=== PATIENT | female | born 1960 | race African-American/Black ===

== ENCOUNTER 2016-12-07 14:10 | Emergency (ER) | payer MEDICARE, MEDICAID ==
[~2016-12-07] VITALS: Ht 165.1 cm; Wt 131.5 kg
[~2016-12-07 14:10] MED LIST: AMBIEN10 M1 ORAL; CYCLOBENZAPRINE10 MG ORAL; IBUPROFEN600 MG ORAL; NORCO 10/3251 EA ORAL; QUETIAPINE FUMA25 MG ORAL; WELLBUTRIN SR100 MG ORAL
[2016-12-07] MEDS ORDERED: GABAPENTIN100 MG ORAL (14:29)
[2016-12-07] MEDS ORDERED: IBUPROFEN600 MG ORAL (14:29)
[2016-12-07] MEDS ORDERED: LASIX20 M1 ORAL (14:29)
[2016-12-07] MEDS ORDERED: Ketorolac 30mg Inj IM ONE (14:30)
[2016-12-07 14:50] VITALS: BP 157/94
[2016-12-07 14:51] VITALS: BP 170/127
--- NOTE | 2016-12-07 17:27 | Emergency Room Report ---
History of Present Illness General Chief Complaint: Pain Source: Patient, EMS Present Illness HPI 56-year-old female presents ED complaining of leg pain and swelling. Patient came by EMS. Patient notes having the pain for many weeks now. Patient states she was admitted in the past and prescribed Lasix and gabapentin. Patient states the pain as throbbing, 8/10, nonradiating. Denies chest pain or shortness of breath. Denies recent trauma. No other aggravating relieving factors. Denies any other associated symptoms. Allergies: Coded Allergies: No Known Allergies (Unverified , 11/07/13) Patient History Past Medical History: psych hx Past Surgical History: none Pertinent Family History: none Social History: Denies: alcohol use, drug use, smoking Now: No Immunizations: UTD Reviewed Nursing Documentation: PMH: Agreed, PSxH: Agreed Nursing Documentation-PMH Past Medical History: No History, Except For History Of Psychiatric Problem: Yes - SCHITOPRENIA Review of Systems All Other Systems: negative except mentioned in HPI Physical Exam Vital Signs Date Time Temp Pulse Resp B/P Pulse Ox O2 Delivery O2 Flow Rate FiO2 12/07/16 14:03 98.1 100 16 170/127 99 Room Air Sp02 EP Interpretation: reviewed, normal General Appearance: no apparent distress, alert, GCS 15, non-toxic, obese Head: normocephalic, atraumatic Eyes: bilateral eye PERRL, bilateral eye normal inspection ENT: hearing grossly normal, normal pharynx, no angioedema, normal voice Neck: full range of motion, supple/symm/no masses Respiratory: chest non-tender, lungs clear, normal breath sounds, speaking full sentences Cardiovascular #1: regular rate, rhythm, no edema Cardiovascular #2: 2+ carotid (R), 2+ carotid (L), 2+ radial (R), 2+ radial (L) , 2+ dorsalis pedis (R), 2+ dorsalis pedis (L) Gastrointestinal: normal bowel sounds, non tender, soft, non-distended, no guarding, no rebound Rectal: deferred Genitourinary: normal inspection, no CVA tenderness Musculoskeletal: back normal, gait/station normal, normal range of motion, non- tender, swelling - 1+ bilateral LE Neurologic: alert, oriented x3, responsive, motor strength/tone normal, sensory intact, speech normal Psychiatric: judgement/insight normal, memory normal, mood/affect normal, no suicidal/homicidal ideation Reflexes: 3+ bicep (R), 3+ bicep (L), 3+ tricep (R), 3+ tricep (L), 3+ knee (R) , 3+ knee (L) Skin: normal color, no rash, warm/dry, well hydrated Lymphatic: no adenopathy Medical Decision Making Diagnostic Impression: Primary Impression: Leg pain Qualified Codes: M79.604 - Pain in right leg; M79.605 - Pain in left leg Additional Impression: Peripheral edema ER Course 56-year-old female presents ED complaining of leg pain and swelling. No trauma Differential - cellulitis, contusion, peripheral edema Patient placed chair. After initial history physical exam reveals an obese female in no acute distress. There is 1+ pitting edema in bilateral lower extremities. No signs of trauma. Patient states she used to take Lasix and gabapentin. Will prescribe refills of both medications Given Toradol in ED with pain improved Diagnosis-leg pain, peripheral edema Stable and discharged to home with prescription for gabapentin, Lasix. Followup with PMD. Return to ED if symptoms occur or worsen Last Vital Signs Date Time Temp Pulse Resp B/P Pulse Ox O2 Delivery O2 Flow Rate FiO2 12/07/16 14:51 98.1 16 170/127 99 Room Air 12/07/16 14:50 98 Status: improved Disposition: HOME, SELF-CARE Condition: Stable Scripts Ibuprofen* (MOTRIN*) 600 Mg Tablet 600 MG ORAL Q8H Y for For Pain, #30 TAB 0 Refills Prov: SALOMON SHELLEY M.D. 12/07/16 Furosemide* (LASIX*) 20 Mg Tablet 20 MG ORAL DAILY for 30 Days, TAB Prov: SALOMON SHELLEY M.D. 12/07/16 Gabapentin* (GABAPENTIN*) 100 Mg Capsule 200 MG ORAL THREE TIMES A DAY for 30 Days, CAP Prov: SALOMON SHELLEY M.D. 12/07/16 Referrals: NOT CHOSEN [facility]/,REFERRING (PCP) Patient Instructions: Edema SALOMON SHELLEY M.D. Dec 07, 2016 17:27
== END 2016-12-07 14:53 | disposition home or self-care (01) ==
LOC: EDBD 14:10 → EMR 14:40
DX: M79.604 Pain in right leg (principal); R60.0 Localized edema
CPT/HCPCS: 96372; 99284; J1885

== ENCOUNTER 2017-04-19 10:23 | Emergency (ER) | payer MEDICARE, MEDICAID ==
[~2017-04-19] VITALS: Ht 165.1 cm; Wt 102.5 kg
[~2017-04-19 10:23] MED LIST changes: +GABAPENTIN100 MG ORAL; +LASIX20 M1 ORAL
[2017-04-19] MEDS ORDERED: ZyPREXA Zydis 10mg tab ORAL ONE (10:45)
[2017-04-19 11:15] VITALS: BP 114/84
[2017-04-19 11:17] LABS: MEAN CORPUSCULAR HEMOGLOBIN 30.1 PG (27.0-31.0); MEAN CORPUSCULAR HGB CONC 31.2 G/DL (32.0-36.0); MEAN CORPUSCULAR VOLUME 96 FL (80-99); MEAN PLATELET VOLUME 5.9 FL (6.5-10.1); PLATELET COUNT 346 K/UL (150-450); RED BLOOD COUNT 4.26 M/UL (4.20-5.40); RED CELL DISTRIBUTION WIDTH 14.5 % (11.6-14.8); WHITE BLOOD COUNT 7.5 K/UL (4.8-10.8)
[2017-04-19 11:25] LABS: ANION GAP 7 mmol/L (5-15); CALCIUM 9.1 MG/DL (8.5-10.1); CARBON DIOXIDE 29 MMOL/L (21-32); CHLORIDE 102 MMOL/L (98-107); CREATININE 0.8 MG/DL (0.55-1.30); GLOMERULAR FILTRATION RATE > 60 mL/min (>60); SODIUM 138 MMOL/L (136-145)
[2017-04-19 11:38] LABS: ALANINE AMINOTRANSFERASE 28 U/L (12-78); ALBUMIN/GLOBULIN RATIO 0.7 (1.0-2.7); ASPARTATE AMINO TRANSFERASE 32 U/L (15-37); THYROID STIMULATING HORMONE 0.195 uiU/mL (0.358-3.740); TOTAL PROTEIN 8.3 G/DL (6.4-8.2)
[2017-04-19 11:39] LABS: POTASSIUM 4.9 MMOL/L (3.5-5.1)
[2017-04-19 11:40] LABS: ANISOCYTOSIS 1+; BAND NEUTROPHILS % (MANUAL) 6 % (0-8); BASOPHILS % (MANUAL) 0 % (0-2); EOSINOPHILS % (MANUAL) 0 % (0-3); HYPOCHROMASIA 1+; LYMPHOCYTES % (MANUAL) 9 % (20-45); NEUTROPHILS % (MANUAL) 80 % (45-75); PLATELET ESTIMATE ADEQUATE; PLATELET MORPHOLOGY NORMAL; TOTAL CELLS COUNTED 100
--- NOTE | 2017-04-19 12:13 | Diagnostic Imaging Report ---
Indication: Pain Technique: Continuous helical CT scanning of the head was performed utilizing automated exposure control without intravenous contrast material. Axial and coronal reconstructions were obtained. Comparison: None CT dose: Total DLP 1534 mGycm; CTDI vol 70.38 mGy Findings: There is no acute intracranial hemorrhage, mass effect or cortical edema. Ventricles normal in size and configuration. The posterior fossa and fourth ventricle are unremarkable. Visualized mastoid air cells and paranasal sinuses are unremarkable. No depressed skull fracture. There is mild left supraorbital soft tissue swelling. Mastoid air cells and paranasal sinuses are clear. There is bilateral proptosis, right greater than left. Orbital fat appears unremarkable. Impression: No evidence of acute intracranial hemorrhage, mass effect or cortical edema. MRI may be obtained for more sensitive evaluation as clinically indicated. Bilateral proptosis. Correlate clinically. The CT scanner at [facility] is accredited by the [employer] and the scans are performed using protocols designed to limit radiation exposure to as low as reasonably achievable to attain images of sufficient resolution adequate for diagnostic evaluation.
[2017-04-19 12:44] LABS: APPEARANCE,URINE CLEAR; KETONES,URINE NEGATIVE (NEGATIVE); LEUKOCYTE ESTERASE ,URINE NEGATIVE (NEGATIVE); NITRITE,URINE NEGATIVE (NEGATIVE); PH,URINE 6.5 (4.5-8.0); PROTEIN,URINE 1+ (NEGATIVE); UROBILINOGEN,URINE NORMAL MG/DL (0.0-1.0)
[2017-04-19 13:00] LABS: BACTERIA,URINE FEW /HPF; MUCUS,URINE FEW /LPF (NONE/OCC); RBC,URINE 0-2 /HPF (0 - 2); SQUAMOUS EPITHELIAL CELL,UR FEW /LPF (NONE/OCC); WBC,URINE 0-2 /HPF (0 - 2)
[2017-04-19] MEDS ORDERED: ZYPREXA10 MG ORAL (13:03)
[2017-04-19] MEDS ORDERED: Acetaminophen 500mg (ES) tab ORAL ONE (13:15)
[2017-04-19 13:50] VITALS: BP 111/67
[2017-04-19 14:18] VITALS: BP 114/84
--- NOTE | 2017-04-20 20:11 | Emergency Room Report ---
History of Present Illness General Chief Complaint: Generalized Weakness Source: Patient Present Illness HPI This is a 57-year-old female who presented after increased generalized body aches as well as a headache. As reported having gradual onset of symptoms were she had the complaints of nausea. She reports having prior history of headaches. She states that she had been having cough as well as sore throat. She denies any neck stiffness. Patient prior history of bipolar disorder. She denies any suicidal thoughts or auditory hallucinations Allergies: Coded Allergies: No Known Allergies (Unverified , 11/07/13) Patient History Past Medical History: see triage record Now: No Reviewed Nursing Documentation: PMH: Agreed, PSxH: Agreed Nursing Documentation-PMH Past Medical History: No History, Except For History Of Psychiatric Problem: Yes Review of Systems All Other Systems: negative except mentioned in HPI Physical Exam Vital Signs Date Time Temp Pulse Resp B/P (MAP) Pulse Ox O2 Delivery O2 Flow Rate FiO2 04/19/17 10:14 98.4 66 16 140/80 98 Room Air Sp02 EP Interpretation: reviewed, normal General Appearance: normal inspection, well appearing, no apparent distress, alert, obese Head: atraumatic ENT: normal ENT inspection, hearing grossly normal, normal voice Neck: normal inspection, full range of motion, supple, no bony tend Respiratory: normal inspection, lungs clear, normal breath sounds, no respiratory distress, no retraction, no wheezing Cardiovascular #1: regular rate, rhythm, no edema Gastrointestinal: normal inspection, normal bowel sounds, non tender, soft, no guarding, no hernia Genitourinary: no CVA tenderness Musculoskeletal: normal inspection, back normal, normal range of motion Neurologic: normal inspection, alert, oriented x3, responsive, chief clinical officer III-XII nml as tested, speech normal Psychiatric: normal inspection, judgement/insight normal, mood/affect normal Skin: normal inspection, normal color, no rash Medical Decision Making Diagnostic Impression: Primary Impression: Headache ER Course Patient presented for headache. Differential diagnoses included but was not limited to viral infection, skull fracture, subarachnoid hemorrhage, meningitis , aneurysm, mass lesion, intracranial hemorrhage. Because of complexity of patient's case laboratory testing and imaging studies were ordered. I laboratory testing was unremarkable. Patient was given oral Zyprexa as well as Tylenol for her headache.The patient is advised to follow up with primary care doctor in 1-2 days. Patient is advised to return if any worsening condition or if any changes in status that are concerning. This report is dictated with [employer] data warehousing engineer software which may occasionally lead to discrepancies related to use of this software. Labs Test 04/19/17 11:02 04/19/17 12:22 White Blood Count 7.5 K/UL (4.8-10.8) Red Blood Count 4.26 M/UL (4.20-5.40) Hemoglobin 12.8 G/DL (12.0-16.0) Hematocrit 41.0 % (37.0-47.0) Mean Corpuscular Volume 96 FL (80-99) Mean Corpuscular Hemoglobin 30.1 PG (27.0-31.0) Mean Corpuscular Hemoglobin Concent 31.2 G/DL (32.0-36.0) Red Cell Distribution Width 14.5 % (11.6-14.8) Platelet Count 346 K/UL (150-450) Mean Platelet Volume 5.9 FL (6.5-10.1) Neutrophils (%) (Auto) % (45.0-75.0) Lymphocytes (%) (Auto) % (20.0-45.0) Monocytes (%) (Auto) % (1.0-10.0) Eosinophils (%) (Auto) % (0.0-3.0) Basophils (%) (Auto) % (0.0-2.0) Differential Total Cells Counted 100 Neutrophils % (Manual) 80 % (45-75) Lymphocytes % (Manual) 9 % (20-45) Monocytes % (Manual) 5 % (1-10) Eosinophils % (Manual) 0 % (0-3) Basophils % (Manual) 0 % (0-2) Band Neutrophils 6 % (0-8) Platelet Estimate Adequate Platelet Morphology Normal Hypochromasia 1+ Anisocytosis 1+ Sodium Level 138 MMOL/L (136-145) Potassium Level 4.9 MMOL/L (3.5-5.1) Chloride Level 102 MMOL/L (98-107) Carbon Dioxide Level 29 MMOL/L (21-32) Anion Gap 7 mmol/L (5-15) Blood Urea Nitrogen 9 mg/dL (7-18) Creatinine 0.8 MG/DL (0.55-1.30) Estimat Glomerular Filtration Rate > 60 mL/min (>60) Glucose Level 127 MG/DL (74-106) Calcium Level 9.1 MG/DL (8.5-10.1) Total Bilirubin 0.4 MG/DL (0.2-1.0) Aspartate Amino Transf (AST/SGOT) 32 U/L (15-37) Alanine Aminotransferase (ALT/SGPT) 28 U/L (12-78) Alkaline Phosphatase 105 U/L (46-116) Total Protein 8.3 G/DL (6.4-8.2) Albumin 3.5 G/DL (3.4-5.0) Globulin 4.8 g/dL Albumin/Globulin Ratio 0.7 (1.0-2.7) Thyroid Stimulating Hormone (TSH) 0.195 uiU/mL (0.358-3.740) Urine Color Pale yellow Urine Appearance Clear Urine pH 6.5 (4.5-8.0) Urine Specific [place] 1.015 (1.005-1.035) Urine Protein 1+ (NEGATIVE) Urine Glucose (UA) Negative (NEGATIVE) Urine Ketones Negative (NEGATIVE) Urine Occult Blood Negative (NEGATIVE) Urine Nitrite Negative (NEGATIVE) Urine Bilirubin Negative (NEGATIVE) Urine Urobilinogen Normal MG/DL (0.0-1.0) Urine Leukocyte Esterase Negative (NEGATIVE) Urine RBC 0-2 /HPF (0 - 2) Urine WBC 0-2 /HPF (0 - 2) Urine Squamous Epithelial Cells Few /LPF (NONE/OCC) Urine Bacteria Few /HPF (NONE) Urine Mucus Few /LPF (NONE/OCC) Urine Opiates Screen Negative (NEGATIVE) Urine Barbiturates Screen Negative (NEGATIVE) Phencyclidine (PCP) Screen Negative (NEGATIVE) Urine Amphetamines Screen Negative (NEGATIVE) Urine Benzodiazepines Screen Negative (NEGATIVE) Urine Cocaine Screen Negative (NEGATIVE) Urine Marijuana (THC) Screen Negative (NEGATIVE) Last Vital Signs Date Time Temp Pulse Resp B/P (MAP) Pulse Ox O2 Delivery O2 Flow Rate FiO2 04/19/17 14:18 98.4 89 14 114/84 99 Room Air Status: improved Disposition: HOME, SELF-CARE Condition: Stable Scripts Olanzapine* (ZYPREXA*) 10 Mg Tablet 10 MG ORAL DAILY, #10 TAB 0 Refills Prov: Tawanda Salazar 04/19/17 Referrals: NOT CHOSEN IPA/MD,REFERRING (PCP) Patient Instructions: Sinus Headache, [id number] Tawanda Salazar Apr 20, 2017 20:11
--- NOTE | 2017-04-25 00:32 | Cardiology Report ---
APPROVED REPORT EKG Measurement Heart [id number] HI [id number] Normal sinus rhythm Nonspecific T wave abnormality Abnormal ECG
== END 2017-04-19 14:20 | disposition home or self-care (01) ==
LOC: EDBD 10:23 → EMR 11:58
DX: R51 Headache (principal); H05.20 Unspecified exophthalmos
CPT/HCPCS: 36415; 70450; 80053; 80307; 81001; 84443; 85007; 85025; 93005; 99284

== ENCOUNTER 2018-01-21 02:45 | Emergency (ER) | payer MEDICARE, MEDICAID ==
[~2018-01-21] VITALS: Ht 165.1 cm; Wt 131.1 kg
[~2018-01-21 02:45] MED LIST changes: +ZYPREXA10 MG ORAL
[2018-01-21] MEDS ORDERED: TEMAZEPAM15 MG ORAL (02:47)
[2018-01-21 03:00] VITALS: BP 135/80
[2018-01-21 03:11] LABS: APPEARANCE,URINE CLEAR; BILIRUBIN, URINE NEGATIVE (NEGATIVE); COLOR,URINE PALE YELLOW; GLUCOSE, URINE (UA) NEGATIVE (NEGATIVE); KETONES,URINE NEGATIVE (NEGATIVE); LEUKOCYTE ESTERASE ,URINE 1+ (NEGATIVE); NITRITE,URINE NEGATIVE (NEGATIVE); PH,URINE 5 (4.5-8.0); PROTEIN,URINE 1+ (NEGATIVE); UROBILINOGEN,URINE NORMAL MG/DL (0.0-1.0)
[2018-01-21 03:36] LABS: BASOPHILS % (AUTO) 1.2 % (0.0-2.0); EOSINOPHILS % (AUTO) 2.8 % (0.0-3.0); HEMATOCRIT 40.1 % (37.0-47.0); HEMOGLOBIN 12.7 G/DL (12.0-16.0); LYMPHOCYTES % (AUTO) 45.5 % (20.0-45.0); MEAN CORPUSCULAR VOLUME 93 FL (80-99); MONOCYTES % (AUTO) 5.9 % (1.0-10.0); NEUTROPHILS % (AUTO) 44.7 % (45.0-75.0); PLATELET COUNT 333 K/UL (150-450); RED BLOOD COUNT 4.33 M/UL (4.20-5.40); RED CELL DISTRIBUTION WIDTH 13.2 % (11.6-14.8); WHITE BLOOD COUNT 10.4 K/UL (4.8-10.8)
[2018-01-21 03:37] LABS: ANION GAP 6 mmol/L (5-15); BLOOD UREA NITROGEN 13 mg/dL (7-18); CALCIUM 9.1 MG/DL (8.5-10.1); CARBON DIOXIDE 27 MMOL/L (21-32); CHLORIDE 109 MMOL/L (98-107); CREATININE 1.1 MG/DL (0.55-1.30); POTASSIUM 3.8 MMOL/L (3.5-5.1); SODIUM 142 MMOL/L (136-145)
[2018-01-21 03:42] LABS: ALANINE AMINOTRANSFERASE 36 U/L (12-78); ALBUMIN 3.3 G/DL (3.4-5.0); ALBUMIN/GLOBULIN RATIO 0.8 (1.0-2.7); ALKALINE PHOSPHATASE 112 U/L (46-116); ASPARTATE AMINO TRANSFERASE 11 U/L (15-37); BILIRUBIN,TOTAL 0.1 MG/DL (0.2-1.0)
--- NOTE | 2018-01-21 03:59 | Emergency Room Report ---
History of Present Illness General Chief Complaint: Overdose Source: Patient, EMS Present Illness HPI Patient 58-year-old female presented after possible overdose. Patient was brought in by EMS. Patient was noted to have the ingested the 3 15 milligram Restoril tablets. The patient reports having taken these at multiple times over the past few hours. The patient denies any suicidal thoughts. She denies any hallucinations. The patient denies any current medical complaints. Allergies: Coded Allergies: No Known Allergies (Unverified , 11/07/13) Patient History Past Medical History: see triage record Last Menstrual Period: n/a Reviewed Nursing Documentation: PMH: Agreed; PSxH: Agreed Review of Systems All Other Systems: negative except mentioned in HPI Physical Exam Vital Signs Date Time Temp Pulse Resp B/P (MAP) Pulse Ox O2 Delivery O2 Flow Rate FiO2 01/21/18 02:42 67 16 135/80 100 Room Air Sp02 EP Interpretation: reviewed, normal General Appearance: alert/responsive, no apparent distress, GCS 15, non-toxic Head: atraumatic Eyes: PERRL, lids + conjunctiva normal ENT: hearing intact, no angioedema Neck: supple/symm/no masses, no meningismus Respiratory: effort normal, no wheezing, chest symmetrical Cardiovascular: regular rate, rhythm, no edema Cardiovascular #2: 2+ carotid (R), 2+ carotid (L), 2+ dorsalis pedis (R), 2+ dorsalis pedis (L) Gastrointestinal: non-tender, no mass, non-distended, no rebound/guarding, normal bowel sounds Musculoskeletal: gait & station normal, strength & tone normal, normal ROM, non -tender Neurologic: oriented x3, sensory intact, normal speech Psychiatric: normal inspection, judgment & insight normal, no suicidal/ homicidal ideation Skin: no rash, well hydrated Lymphatic: normal inspection Medical Decision Making Diagnostic Impression: Primary Impression: Medication overdose ER Course Patient presented for possible overdose. Differential diagnoses include substance abuse, psychosis, bipolar disorder, depression, malingering. Because of complexity of patient's case laboratory testing and imaging studies were ordered. the patient presented after reported medication overdose. Differential diagnoses included was not limited to toxic ingestion, suicidal attempt, coingestion,psychosis among others. Because of complexity of patient's case laboratory testing and imaging studies were ordered. the laboratory testing was unremarkable.The poison control was contacted for assistance with management. The patient was observed without any excessive somnolence. The patient was discharged home. Patient follow-up with outpatient mental health. She is advised not take excessive amounts of medications. Last Vital Signs Date Time Temp Pulse Resp B/P (MAP) Pulse Ox O2 Delivery O2 Flow Rate FiO2 01/21/18 02:42 67 16 135/80 100 Room Air Status: improved Disposition: HOME, SELF-CARE Condition: Stable Referrals: NOT CHOSEN [facility]/,REFERRING (PCP) Tawanda Salazar MD Jan 21, 2018 03:59
[2018-01-21 05:23] VITALS: BP 144/72
[2018-01-21 06:05] VITALS: BP 144/72
== END 2018-01-21 06:09 | disposition home or self-care (01) ==
LOC: EDBD 02:45 → EMR 03:24
DX: T42.4X1A Poisoning by benzodiazepines, accidental (unintentional), initial encounter (principal); Y92.018 Other place in single-family (private) house as the place of occurrence of the external cause; F17.200 Nicotine dependence, unspecified, uncomplicated
CPT/HCPCS: 36415; 80053; 80307; 81003; 85025; 99284; G0480; 80329

== ENCOUNTER 2018-12-21 09:48 | Inpatient (IN) | payer MEDICARE, MEDICAID ==
[~2018-12-21] VITALS: Ht 175.3 cm; Wt 141.5 kg
[2018-12-21] VITALS (22 sets, daily range): BP systolic 86–156; BP diastolic 47–79
[~2018-12-21 09:48] MED LIST changes: +TEMAZEPAM15 MG ORAL
--- NOTE | 2018-12-21 09:55 | NUR ---
ED Nurse Note: PT BROUGHT IN BY [facility] FROM HOME. AOX4. PT STATES SHE CALLED 911 TODAY BECAUSE SHE WAS "LOSING TRACK OF TIME. DAYS HAVE GONE BY AND I DIDN'T KNOW." PT STATES SHE HAS HX OF SCHIZOPHRENIA AND HAS BEEN MED COMPLIANT. AT BEDSIDE, PT IS CALM AND COOPERATIVE. AUDIBLE EXPIRATORY AND INSPIRATORY WHEEZING BUT NO SIGNS OF RESPIRATORY DISTRESS, RETRACTIONS, OR ACCESSORY MUSCLE USE NOTED. RR17, O2SAT 98%. PT TACHYCARDIC - HR117 WITH SINUS TACHYCARDIA ON MONITOR. DR REINALDO DOE.
--- NOTE | 2018-12-21 10:07 | NUR ---
ED Nurse Note: PT AMBULATED TO RESTROOM AND WAS ASKED TO PROVIDE URINE SAMPLE. PT DID NOT. DR NAJERA AWARE. OKAY TO SKIP UA PER DR NAJERA.
[2018-12-21] MEDS ORDERED: Solu-MEDROL 125mg Inj IVP ONE (10:45)
--- NOTE | 2018-12-21 10:57 | NUR ---
ED Nurse Note: RT CALLED FOR BREATHING TX.
[2018-12-21 11:00] LABS: EOSINOPHILS % (AUTO) 0.2 % (0.0-3.0); HEMATOCRIT 39.3 % (37.0-47.0); HEMOGLOBIN 12.7 G/DL (12.0-16.0); LYMPHOCYTES % (AUTO) 41.4 % (20.0-45.0); MEAN CORPUSCULAR VOLUME 96 FL (80-99); MONOCYTES % (AUTO) 6.2 % (1.0-10.0); NEUTROPHILS % (AUTO) 50.2 % (45.0-75.0); PLATELET COUNT 292 K/UL (150-450); RED CELL DISTRIBUTION WIDTH 14.7 % (11.6-14.8); WHITE BLOOD COUNT 8.8 K/UL (4.8-10.8)
[2018-12-21] MEDS ORDERED: Albuterol/Ipratropium 3ml neb HHN ONE (11:00)
--- NOTE | 2018-12-21 11:05 | NUR ---
ED Nurse Note: RT AT BEDSIDE.
[2018-12-21 11:11] LABS: ANION GAP 12 mmol/L (5-15); BLOOD UREA NITROGEN 11 mg/dL (7-18); CALCIUM 8.5 MG/DL (8.5-10.1); CARBON DIOXIDE 20 MMOL/L (21-32); CHLORIDE 110 MMOL/L (98-107); SODIUM 142 MMOL/L (136-145)
[2018-12-21 11:24] LABS: ALANINE AMINOTRANSFERASE 58 U/L (12-78); ALBUMIN 3.5 G/DL (3.4-5.0); ALBUMIN/GLOBULIN RATIO 0.8 (1.0-2.7); ALKALINE PHOSPHATASE 79 U/L (46-116); ASPARTATE AMINO TRANSFERASE 44 U/L (15-37); BILIRUBIN,TOTAL 0.3 MG/DL (0.2-1.0)
[2018-12-21] MEDS ORDERED: LORazepam Inj 2mg/ml 1ml IM ONE (12:15)
[2018-12-21] MEDS ORDERED: DiphenhydrAMINE 50mg/ml Inj IM ONE (12:15)
--- NOTE | 2018-12-21 12:18 | NUR ---
ED Nurse Note: PT AGITATED AND WANTING TO LEAVE ROOM WITHOUT ANY CLOTHES ON. PT PLACED BACK ON GURNEY AND GIVEN IV MEDS PER DR NAJERA ORDER. PT BACK IN BED AND ON CASTING TECHNICIAN.
--- NOTE | 2018-12-21 12:47 | Emergency Room Report ---
History of Present Illness General Chief Complaint: General Complaint Source: Patient, EMS Present Illness HPI Patient is a 58-year-old female presented after increased anxiety. She reports having prior history of schizophrenia. She reports having some difficulty with breathing. She reports being more anxious than usual. History is markedly limited by mental status and poor historian. Allergies: Coded Allergies: No Known Allergies (Unverified , 11/07/13) Patient History Now: No Reviewed Nursing Documentation: PMH: Agreed; PSxH: Agreed Nursing Documentation-PMH Past Medical History: No History, Except For Review of Systems All Other Systems: negative except mentioned in HPI Physical Exam Vital Signs Date Time Temp Pulse Resp B/P (MAP) Pulse Ox O2 Delivery O2 Flow Rate FiO2 12/21/18 09:42 98.6 122 17 131/81 (98) 93 Room Air 12/21/18 11:04 21 Sp02 EP Interpretation: reviewed, normal General Appearance: alert, moderate distress Head: atraumatic ENT: normal ENT inspection, hearing grossly normal, normal voice Neck: normal inspection, full range of motion, supple, no bony tend Respiratory: normal inspection, no retraction, wheezing, other - tachypnea Cardiovascular #1: regular rate, rhythm, no edema Gastrointestinal: normal inspection, normal bowel sounds, non tender, soft, no guarding, no hernia Genitourinary: no CVA tenderness Musculoskeletal: normal inspection, back normal, normal range of motion Neurologic: normal inspection, alert, oriented x3, responsive, causticiser III-XII nml as tested, speech normal Psychiatric: anxious, other - bizzarre speech Skin: normal color Procedures Critical Care Time Critical Care Time Patient had a critical medical condition which untreated could potentially result in life or limb threatening injury. Total critical care time excluding procedures approximately 45 minutes. Intubation Intubation : Consent: Emergent Time of Intubation: 13:03 Intubation Method: nasotracheal Medications: Etomidate, Rocuronium Breath Sounds after Intubation: equal Intubation Complications: no complications Post Intubation Xray: Yes Attempts: One Patient Tolerated: Well Complications: None Medical Decision Making Diagnostic Impression: Primary Impression: Respiratory failure Additional Impressions: Salicylate overdose Psychosis Asthma ER Course Patient presented for anxiety and difficulty breathing. Differential diagnosis include is not limited to pneumonia, COPD exacerbation, asthma exacerbation, substance abuse, psychosis among others. Because of complexity of patient's case laboratory testing and imaging studies were ordered. Patient was noted to have initial complaint of anxiety. She was given steroids as well as breathing treatments due to significant difficulty with respirations. Patient was noted to be somewhat agitated and does have prior history of psychiatric disease. She was noted to have some continued agitation and was given medications for sedation including Haldol and Benadryl. Patient was subsequently noted to be more tachypneic. She was intubated for respiratory distress. Patient tolerated intubation well. Post procedure chest x-ray showed left mainstem intubation. ET tube was was subsequently withdrawn with improved position. This was secured at 20 cm after adjustment patient was started on a Diprivan drip. Dr. Jasmine Thompson was contacted for inpatient management due to panel physician. Labs Test 12/21/18 10:45 White Blood Count 8.8 K/UL (4.8-10.8) Red Blood Count 4.10 M/UL (4.20-5.40) Hemoglobin 12.7 G/DL (12.0-16.0) Hematocrit 39.3 % (37.0-47.0) Mean Corpuscular Volume 96 FL (80-99) Mean Corpuscular Hemoglobin 30.9 PG (27.0-31.0) Mean Corpuscular Hemoglobin Concent 32.2 G/DL (32.0-36.0) Red Cell Distribution Width 14.7 % (11.6-14.8) Platelet Count 292 K/UL (150-450) Mean Platelet Volume 5.0 FL (6.5-10.1) Neutrophils (%) (Auto) 50.2 % (45.0-75.0) Lymphocytes (%) (Auto) 41.4 % (20.0-45.0) Monocytes (%) (Auto) 6.2 % (1.0-10.0) Eosinophils (%) (Auto) 0.2 % (0.0-3.0) Basophils (%) (Auto) 2.0 % (0.0-2.0) Sodium Level 142 MMOL/L (136-145) Potassium Level 4.0 MMOL/L (3.5-5.1) Chloride Level 110 MMOL/L (98-107) Carbon Dioxide Level 20 MMOL/L (21-32) Anion Gap 12 mmol/L (5-15) Blood Urea Nitrogen 11 mg/dL (7-18) Creatinine 1.0 MG/DL (0.55-1.30) Estimat Glomerular Filtration Rate > 60 mL/min (>60) Glucose Level 90 MG/DL (74-106) Calcium Level 8.5 MG/DL (8.5-10.1) Total Bilirubin 0.3 MG/DL (0.2-1.0) Aspartate Amino Transf (AST/SGOT) 44 U/L (15-37) Alanine Aminotransferase (ALT/SGPT) 58 U/L (12-78) Alkaline Phosphatase 79 U/L (46-116) Troponin I 0.000 ng/mL (0.000-0.056) Total Protein 7.8 G/DL (6.4-8.2) Albumin 3.5 G/DL (3.4-5.0) Globulin 4.3 g/dL Albumin/Globulin Ratio 0.8 (1.0-2.7) Thyroid Stimulating Hormone (TSH) 0.239 uiU/mL (0.358-3.740) Salicylates Level 46.0 ug/mL (2.8-20) Acetaminophen Level < 2 MCG/ML (10-30) Serum Alcohol < 3 mg/dL EKG Diagnostic Results Rate: tachycardiac Rhythm: NSR ST Segments: no acute changes Last Vital Signs Date Time Temp Pulse Resp B/P (MAP) Pulse Ox O2 Delivery O2 Flow Rate FiO2 12/21/18 11:15 115 20 100 Room Air 21 12/21/18 10:05 98.4 103/65 Status: unchanged Disposition: ADMITTED INPATIENT Condition: Critical Referrals: NOT CHOSEN IPA/,REFERRING (PCP) Tawanda Salazar MD Dec 21, 2018 12:47
--- NOTE | 2018-12-21 13:00 | NUR ---
ED Nurse Note: PT'S BREATHING VERY LABORED. DR NAJERA AND RESPIRATORY THERAPIST AT BEDSIDE. PT INTUBATED - 23CM @ LIPS. MEDS ADMINISTERED BY TESFAYE CASAS. PT TOLERATED WELL. VENT SETTINGS: AC 16 TV 500 FiO2 100% PEEP 5
--- NOTE | 2018-12-21 13:25 | NUR ---
ED Nurse Note: XRAY AT BEDSIDE FOR INTUBATION VERIFICATION.
--- NOTE | 2018-12-21 13:41 | NUR ---
ED Nurse Note: ICU CALLED FOR PT REPORT. BLAIRE, CHARGE NURSE STATES RN IS ON LUNCH. BLAIRE, CHARGE NURSE COVERING RECEIVING RN BUT WILL NOT TAKE REPORT AND WANTS ER TO WAIT FOR RN TO COME BACK FROM LUNCH.
--- NOTE | 2018-12-21 13:42 | NUR ---
ED Nurse Note: ET TUBE PULLED TO 20CM AT LIPS AFTER XRAY CONFIRMATION.
--- NOTE | 2018-12-21 13:42 | NUR ---
Stage Set Up WorkerOffice Services Coordinator 58 Y/O Female BIBA from HOME CC: ANXIETY, PT REPORTS SHE IS SCARED, HX SCHIZOPHRENIA SI: COPD EXARCERBATION VS: BP: 131/81 HR: 122 RR 17 02 Sat 93% (RA) T: 98.6 NT: MEAN PLT 5.0 CO2 20 AST/SGOT 44 SALICYLATE 46.0 TSH 0.239 CHLORIDE 110 IS: SOLUMEDROL 125MG IVP ALBUTEROL 3ML HHN SEROQUEL 100MG ORAL ATIVAN 1MG IM BENADRYL 50MG IM NS 1000ML IV Admitted to ICU ICU status DCP: PT FROM HOME
--- NOTE | 2018-12-21 14:07 | NUR ---
ED Nurse Note: XRAY AT BEDSIDE.
--- NOTE | 2018-12-21 14:18 | NUR ---
ED Nurse Note: ICU CALLED FOR PT REPORT. PER EUGENE RN, RECEIVING RN STILL NOT READY.
[2018-12-21] MEDS ORDERED: Sodium Bicarbonate 150 ML in D5W 1000ml 1,000 ML IV SCH (14:30)
--- NOTE | 2018-12-21 14:36 | NUR ---
ED Nurse Note: PHARMACY CALLED FOR BICARB. PER JAKI, PHARMACIST, MED IS BEING PREPARED AND WILL BE DELIVERED ONCE READY.
[2018-12-21] MEDS ORDERED: UNOBMED (14:42)
--- NOTE | 2018-12-21 14:45 | NUR ---
ED Nurse Note: CLARENCE ALLISON FROM ICU CALLED FOR PT REPORT. REPORT GIVEN. AWAITING BICARB PREPARATION FROM PHARMACY BEFORE TRANSFERRING PT TO ICU. CLARENCE ALLISON AWARE.
--- NOTE | 2018-12-21 15:15 | NUR ---
ED Nurse Note: PT TAKEN UP TO ICU VIA GURNEY ON CARTOGRAPHY TECHNICIAN WITH ALL BELONGINGS RUNNING PROPOFOL DRIP AND SODIUM BICARB IV ACCOMPANIED BY PRIMARY RN AND EMT. VSS.
--- NOTE | 2018-12-21 15:45 | NUR ---
NURSE NOTES: Report received from Tracey Baron RN Pt arrived via gurney. Belongings checked. Called cost and sales record supervisor to keep gould and credit cards in the safe. Pt is lightly sedated. Sinus tachy on ekg monitor tech. Orally intubated. ETT 7.0/21cm at lip line. ETT to vent. Will order CXR to check placement. External female catheter applied. IV to right AC G20 patent and asymptomatic. Pt is on Propofol at 5mcg/kg/min and D5W with Sodium Bicarb 3amp at 100cc/hr. Pt is impulsive and trying to reach ETT. Will get restraints orders. Bed in lowest position. Side rails up x3. Call light within reach. Will resume plan of care.
[2018-12-21] MEDS ORDERED: LORazepam Inj 2mg/ml 1ml IV PRN (16:15)
[2018-12-21] MEDS ORDERED: D5NS 1,000 ML IV SCH (16:15)
--- NOTE | 2018-12-21 16:30 | Diagnostic Imaging Report ---
Indication: Shortness of breath, post intubation Technique: One view of the chest Comparison: 07/24/2010 Findings: There is an endotracheal tube in place, tip of which projects approximately 2 cm into the left mainstem bronchus. There is complete opacification of the right hemithorax. There is abrupt cut off of the right mainstem bronchus The left lung and pleural space are clear. Impression: Low position of endotracheal tube, tip in the left mainstem bronchus. This critical finding was previously discussed by phone with Dr. Salazar Complete atelectasis of the right lung, likely related to the above
--- NOTE | 2018-12-21 16:49 | Diagnostic Imaging Report ---
Indication: Status post adjustment of previously malpositioned endotracheal tube Technique: One view of the chest Comparison: 45 minutes earlier Findings: Interim retraction of previously malpositioned endotracheal tube, tip now projecting in good position approximately 3 cm above ursula. There is interval reexpansion of the right lung. There is some residual linear subsegmental atelectasis at the right lung base. The lungs and pleural spaces are otherwise clear. The heart is borderline enlarged Impression: Improved and now satisfactory position of endotracheal tube. Interim reexpansion of previously atelectatic right lung. There is some residual subsegmental atelectasis at the lung base
[2018-12-21] MEDS ORDERED: Heparin1,000 units/500ml Premix(Conc:2 units/ml) IV PRN (17:00)
[2018-12-21] MEDS ORDERED: Lidocaine 1% Plain 30 ml INJ PRN (17:00)
[2018-12-21] MEDS: Sodium Bicarbonate 150 ML in D5W 1000ml 1,000 ML IV SCH (17:05)
--- NOTE | 2018-12-21 17:41 | NUR ---
NURSE NOTES: The only medication pt brought was Lasix. Med recon done. 3 Master cards and 1 visa card kept in a hospital safe. Receipt in the chart.
--- NOTE | 2018-12-21 17:50 | Diagnostic Imaging Report ---
Indication: Post intubation Technique: One view of the chest Comparison: 3 hours earlier Findings: Satisfactory position of endotracheal tube, tip projecting approximately 6 cm above the ursula. Interim placement of a nasogastric tube, tip position is not clearly visible but apparently well within the stomach. There is improved aeration of the right lung base. The heart remains enlarged. Impression: Satisfactory nasogastric intubation Satisfactory position of endotracheal tube Improved right basilar aeration, or 3 hours This agrees with the preliminary interpretation provided overnight by [facility].
--- NOTE | 2018-12-21 17:51 | Diagnostic Imaging Report ---
Indication: Post nasogastric tube placement Technique: Supine view of the abdomen Comparison: 02/02/2011 Findings: Interim nasogastric intubation, nasogastric tube tip projecting at the level of the gastric antrum, in good position. Bowel gas pattern is unremarkable. Spinal hardware is seen at the lumbosacral junction, also evident previously. Impression: Satisfactory nasogastric intubation No acute process This agrees with the preliminary interpretation provided overnight by [facility].
[2018-12-21] MEDS: NovoLOG Insulin Flexpen SUBQ SCH ×2 (18:26→23:58)
[2018-12-21] MEDS: cefTRIAXone 1 GM in D5W 55 ML IVPB SCH (18:26)
[2018-12-21] MEDS: Albuterol/Ipratropium 3ml neb HHN SCH ×2 (18:55→22:54)
--- NOTE | 2018-12-21 18:56 | NUR ---
RESPIRATORY NOTE: Received pt on AC 18, 550VT, 60%, PEEP +5. Pt intubated w/ ETT 7.0 @ 20cm lipline, secured by anchorfast. Pt sedated. B/S sherry. clear/diminished, sxn minimal amounts of thick/thin, clear-white secretions. Both hands on soft restraints to prevent pt frm self-extubation. Vent plugged into red outlet, ambubag at bedside. Pt in no apparent distress at this time. Will continue to monitor pt.
--- NOTE | 2018-12-21 19:06 | NUR ---
RESPIRATORY NOTE: MD Gricel just changed pt's ventilator orders. Pt now on AC 24, 550VT, 60%, PEEP +5. Pt tolerating well. Bedside RN aware. Will continue to monitor pt.
--- NOTE | 2018-12-21 19:14 | Pulmonolgy Critical Care Note ---
Critical Care - Asmt/Plan Assessment/Plan: Pulmonary CCM Consultation HPI Patient is a 58-year-old woman with apparent history of Obstructive Airways Disease, Schizophrenia, Obesity, presented with shortness of breath, increased anxiety. Per ER notes history limited by mental status, being a poor historian. Patient noted to be extremely short of breathrequiring intubation in the ED. Noted to have elevated ASA level Allergies: No Known Allergies Past Medical History: Obstructive Airways Disease, Schizophrenia, Obesity Review of Systems All Other Systems: negative except mentioned in HPI Physical Exam Vital Signs Noted Date Time Temp Pulse Resp B/P (MAP) Pulse Ox O2 Delivery O2 Flow Rate FiO2 12/21/18 09:42 98.6 122 17 131/81 (98) 93 Room Air 12/21/18 11:04 21 General Appearance: normal inspection, sedated n the ventilator Head: NCAT ENT: Moist mm, ETT, OGT, JVP not visible Neck: normal inspection, full range of motion, supple, no bony tend Respiratory: normal inspection, no respiratory distress, no retraction, mild wheezing, reduced basal BS Cardiovascular: regular rate, rhythm, Normal HS1, HS2 Gastrointestinal: normal inspection, normal bowel sounds, non tender, soft, no guarding, no hernia Genitourinary: no CVA tenderness Musculoskeletal: normal inspection, moderate edema Neurologic: no focal signs noted, sedated Impression: Respiratory failure - Hypercapneic and Hypoxic Elevated Salicylate level Pneumonia Possible Congestive Heart Failure Salicylate overdose Schizophrenia/Psychosis Asthma Obesity Plan: AC 18 Vt 550 P5 Adjust FIO2 sats 90-94% IV Ceftriaxone and Azithromycin IV Solumedrol HHN ISS 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 PRN Sedation BLE dupplex PPX IV alkalinized fluids Monitor labs/ABG BLANCA to assess OGT Labs Test 12/21/18 10:45 White Blood Count 8.8 K/UL (4.8-10.8) Red Blood Count 4.10 M/UL (4.20-5.40) Hemoglobin 12.7 G/DL (12.0-16.0) Hematocrit 39.3 % (37.0-47.0) Mean Corpuscular Volume 96 FL (80-99) Mean Corpuscular Hemoglobin 30.9 PG (27.0-31.0) Mean Corpuscular Hemoglobin Concent 32.2 G/DL (32.0-36.0) Red Cell Distribution Width 14.7 % (11.6-14.8) Platelet Count 292 K/UL (150-450) Mean Platelet Volume 5.0 FL (6.5-10.1) Neutrophils (%) (Auto) 50.2 % (45.0-75.0) Lymphocytes (%) (Auto) 41.4 % (20.0-45.0) Monocytes (%) (Auto) 6.2 % (1.0-10.0) Eosinophils (%) (Auto) 0.2 % (0.0-3.0) Basophils (%) (Auto) 2.0 % (0.0-2.0) Sodium Level 142 MMOL/L (136-145) Potassium Level 4.0 MMOL/L (3.5-5.1) Chloride Level 110 MMOL/L (98-107) Carbon Dioxide Level 20 MMOL/L (21-32) Anion Gap 12 mmol/L (5-15) Blood Urea Nitrogen 11 mg/dL (7-18) Creatinine 1.0 MG/DL (0.55-1.30) Estimat Glomerular Filtration Rate > 60 mL/min (>60) Glucose Level 90 MG/DL (74-106) Calcium Level 8.5 MG/DL (8.5-10.1) Total Bilirubin 0.3 MG/DL (0.2-1.0) Aspartate Amino Transf (AST/SGOT) 44 U/L (15-37) Alanine Aminotransferase (ALT/SGPT) 58 U/L (12-78) Alkaline Phosphatase 79 U/L (46-116) Troponin I 0.000 ng/mL (0.000-0.056) Total Protein 7.8 G/DL (6.4-8.2) Albumin 3.5 G/DL (3.4-5.0) Globulin 4.3 g/dL Albumin/Globulin Ratio 0.8 (1.0-2.7) Thyroid Stimulating Hormone (TSH) 0.239 uiU/mL (0.358-3.740) Salicylates Level 46.0 ug/mL (2.8-20) Acetaminophen Level < 2 MCG/ML (10-30) Serum Alcohol < 3 mg/dL CXR: ETT appropriate, RLL infiltrate, vascular congestion Respiratory: adjust tidal volume, monitor respiratory rate, ABG Renal: keep IV fluid Neurologic: other Prophylaxis: SCDs Disposition: keep in ICU Time Spent (Minutes): 70 Critical Care - Objective Last 24 Hour Vital Signs Date Time Temp Pulse Resp B/P (MAP) Pulse Ox O2 Delivery O2 Flow Rate FiO2 12/21/18 19:00 124 23 104/53 (70) 99 12/21/18 18:54 113 21 100 Mechanical Ventilator 60 12/21/18 18:54 113 21 60 12/21/18 18:30 116 23 106/47 (66) 99 12/21/18 18:00 117 24 128/72 (90) 100 12/21/18 17:30 128 26 90 12/21/18 17:30 123 24 120/61 (80) 100 12/21/18 17:04 23 114/68 Mechanical Ventilator 90 12/21/18 17:00 109 21 144/79 (100) 100 12/21/18 16:58 Mechanical Ventilator 12/21/18 16:30 110 22 125/64 (84) 100 12/21/18 16:00 112 22 125/68 (87) 100 12/21/18 15:51 120 12/21/18 15:50 112 24 100 12/21/18 15:45 99.1 115 23 114/68 (83) 100 12/21/18 15:00 98.3 122 23 138/76 100 Mechanical Ventilator 100 12/21/18 14:46 98.3 120 24 157/79 100 Mechanical Ventilator 100 12/21/18 14:35 22 152/76 Mechanical Ventilator 100 12/21/18 14:00 98.3 118 24 152/78 100 Mechanical Ventilator 100 12/21/18 13:35 20 157/79 Mechanical Ventilator 100 12/21/18 13:20 16 158/76 Endotracheal Tube 100 12/21/18 13:14 124 16 100 12/21/18 13:14 100 12/21/18 13:00 98.2 124 24 156/76 100 Mechanical Ventilator 100 12/21/18 12:00 98.5 124 19 114/68 100 Room Air 12/21/18 11:15 115 20 100 Room Air 21 12/21/18 11:06 133 19 98 Room Air 21 12/21/18 11:04 133 19 99 Room Air 21 12/21/18 10:05 117 17 Room Air 12/21/18 10:05 98.4 117 17 103/65 98 Room Air 12/21/18 09:42 98.6 122 17 131/81 (98) 93 Room Air Micro: Microbiology Date/Time Source Procedure Growth Status 12/21/18 13:40 Rectum Received Accucheck: 142 Critical Care - Subjective ROS Limited/Unobtainable: Yes Condition: critical IV Access: peripheral EKG Rhythm: Sinus Rhythm FI02: 60 Vent Support Breath Rate: 18 Vent Support Mode: AC Vent Tidal Volume: 550 Sputum Amount: Scant PEEP: 5.0 PIP: 25 ET-Tube: 7.0 ET Position: 20 Kevan Monsalve MD Dec 21, 2018 19:14
--- NOTE | 2018-12-21 19:40 | NUR ---
HAND-OFF: Report given to CLARENCE Ruiz.
--- NOTE | 2018-12-21 19:42 | NUR ---
NURSE NOTES: Recvd.on a vent.orally intubated.See settings.Lungs diminished BS (R)side and Lower base.Sat.98-99%.Suctioned tk.beige sec.NS Lavaged.Pos. chg.Kept Comfortable.Occ.restless/agitated Pot.to self-injury.Sedated on Diprivan drip.Bila.soft wrist restraints on.Re-oriented,Re-assured.See V/S.Scope ST.
[2018-12-21] MEDS: Dyna-Hex 2% Top Sol 2oz TOPIC SCH (20:00)
[2018-12-21] MEDS: Solu-MEDROL 125mg Inj IVP SCH (21:27)
--- NOTE | 2018-12-21 22:00 | NUR ---
NURSE NOTES: HS Care provided.Suctioned.See Latest ABG result.Fio2 TiT.<50%.P.Ox-99-100%.Pos.chg.Backrub with Lotion.Due Meds admin.Profofol drip D/C.Fentanyl drip started at 10mcg/hr Tit.for sedation.
[2018-12-22] VITALS (48 sets, daily range): BP systolic 96–141; BP diastolic 46–96
--- NOTE | 2018-12-22 | Consultation ---
DATE OF CONSULTATION: 12/21/2018 CONSULTING PHYSICIAN: Laurie Canchola M.D. REFERRING PHYSICIAN: Jasmine Cardenas M.D. HISTORY OF PRESENT ILLNESS: The patient is a 58-year-old female who was seen in the ICU. The patient presented to the emergency room with increased anxiety. The patient has a history of schizophrenia. The patient is morbidly obese. The patient has been restless and agitated. She was placed in soft restraints. The patient has received Ativan, Seroquel as well as propofol for sedation in management of her agitation. PAST PSYCHIATRIC HISTORY: Schizophrenia, anxiety. PAST MEDICAL HISTORY: Morbid obesity, peripheral edema, COPD exacerbation. ALLERGIES: No known drug allergies. SUBSTANCE ABUSE HISTORY: History of opiate dependence. Urine tox is not done, however, the toxicology is positive for salicylate overdose. MENTAL STATUS EXAMINATION: The patient is alert, agitated, unable to provide any history. Mood is agitated. Affect is flat. Thought process, there is a paucity of thought content. Thought content, unable to assess for suicidal ideation. Cognition is impaired. ASSESSMENT: Madison I Schizophrenia by history. Madison II Deferred. Madison III As above. Madison IV Unable to assess. Madison V 10. PLAN: 1. This patient has had a suicide attempt. Unable to assess the patient due to the patient's mental status. I will tend to evaluate the patient when the patient is more alert. 2. We will start the patient on Seroquel p.r.n. 3. We will continue to follow and reassess. Laurie Canchola M.D. DR: RYANNE JOB#: [id number] CC: JACQUIE
--- NOTE | 2018-12-22 00:10 | NUR ---
NURSE NOTES: See V/S.Scope Rhythm same.Suctioned.Pos. chg.FSBS-139,covered.Cont.on IV BICARB drip infusion.Fentanyl drip at 50mcg/hr.NO inj.Cont.Plan of care.
--- NOTE | 2018-12-22 02:00 | NUR ---
NURSE NOTES: Restless/Agitated.Fentanyl drip inc.to 80mcg/hr.Repositioned,Kept comfortable.Suctioned.
[2018-12-22] MEDS: Albuterol/Ipratropium 3ml neb HHN SCH ×5 (02:44→22:47)
--- NOTE | 2018-12-22 04:10 | NUR ---
NURSE NOTES: Pos.chg q2hrs.Kept comfortable at all times.batheAna Lilian chg.Suctioned.Derrick.vent settings.P.Ox-97-100%.Blood drawn for cbc/cmp,spec.to lab.Maintain on Bicarb drip.Diuresis well fr.F/cath inserted.see I/O.
[2018-12-22] MEDS: Sodium Bicarbonate 150 ML in D5W 1000ml 1,000 ML IV SCH ×2 (04:41→09:57)
[2018-12-22] MEDS: Solu-MEDROL 125mg Inj IVP SCH ×3 (05:38→22:18)
[2018-12-22] MEDS: NovoLOG Insulin Flexpen SUBQ SCH ×4 (05:42→23:49)
[2018-12-22 06:15] LABS: BASOPHILS % (AUTO) 0.5 % (0.0-2.0); HEMATOCRIT 34.6 % (37.0-47.0); HEMOGLOBIN 11.3 G/DL (12.0-16.0); LYMPHOCYTES % (AUTO) 20.2 % (20.0-45.0); MEAN CORPUSCULAR VOLUME 95 FL (80-99); MONOCYTES % (AUTO) 2.3 % (1.0-10.0); PLATELET COUNT 263 K/UL (150-450); RED BLOOD COUNT 3.64 M/UL (4.20-5.40); RED CELL DISTRIBUTION WIDTH 14.4 % (11.6-14.8)
[2018-12-22 06:25] LABS: ANION GAP 11 mmol/L (5-15); BLOOD UREA NITROGEN 9 mg/dL (7-18); CALCIUM 8.1 MG/DL (8.5-10.1); CARBON DIOXIDE 25 MMOL/L (21-32); CHLORIDE 108 MMOL/L (98-107); POTASSIUM 3.2 MMOL/L (3.5-5.1); SODIUM 144 MMOL/L (136-145)
--- NOTE | 2018-12-22 07:31 | NUR ---
HAND-OFF: Report given to CLARENCE BERNSTEIN.
--- NOTE | 2018-12-22 07:32 | NUR ---
NURSE NOTES: RECEIVED PATIENT FROM Reid NICHOLSON RN. PATIENT IS SEDATED. ON FENTANYL DRIP AT 120MCG/HR FOLLOWING HOSPITAL PROTOCOL. HOOKED TO [employer]. ORALLY INTUBATED, ETT 7.5 AT 21CM LIP LINE, VENT SETTINGS AC24, TV 550, FiO2 50%, PEEP 5. NO SIGNS OF DISTRESS OF THE MOMENT. NOTED OGT. NPO FOR NOW. GOOD CONNECTED TO BAG, PATENT AND DRAINING URINE. IVS ON R AC G20 AND D5 W + 3 AMPS OF SODIUM BICARBONATE AT 100ML/HR. NOTED BW RESTRAINTS DUE TO PULLING ETT. SIDE RAILS UP. CALL LIGHT WITHIN REACH. WILL CONTINUE TO MONITOR.
--- NOTE | 2018-12-22 07:35 | NUR ---
RESPIRATORY NOTE: received pt orally intubated with ETT 7.0, placed 20cm at the lip. ETT secured via anchor fast with no appearances of redness around facial area. pt is restless and sedated. circuits are away from pt to prevent pulling/self extubation. alarms are on and audible with ambu bag at bedside. will cont to monitor pt.
--- NOTE | 2018-12-22 08:31 | NUR ---
NURSE NOTES: PATIENT NOTED TO BE RESTLESS AND NOW LIGHTLY SEDATED. DUE IV MEDS WAS GIVEN. STILL ON FENTANYL DRIP FOLLOWING HOSPITAL PROTOCOL. WILL CONTINUE TO MONITOR.
--- NOTE | 2018-12-22 08:56 | Cardiology Progress Note ---
Assessment/Plan Assessment/Plan The patient is seen and examined, full cardiology consult is dictated. Objective Last 24 Hour Vital Signs Date Time Temp Pulse Resp B/P (MAP) Pulse Ox O2 Delivery O2 Flow Rate FiO2 12/22/18 08:30 99.3 118 18 129/79 (96) 95 12/22/18 08:29 18 Mechanical Ventilator 50 12/22/18 08:28 18 Mechanical Ventilator 50 12/22/18 08:00 Mechanical Ventilator 12/22/18 08:00 25 Mechanical Ventilator 50 12/22/18 08:00 116 25 129/79 (96) 97 12/22/18 08:00 50 12/22/18 07:36 110 24 99 Mechanical Ventilator 50 12/22/18 07:30 122 17 134/79 (97) 100 12/22/18 07:30 129 27 50 12/22/18 07:29 129 28 97 Mechanical Ventilator 50 12/22/18 07:00 104 24 114/79 (91) 98 12/22/18 07:00 25 Mechanical Ventilator 50 12/22/18 06:30 104 24 135/71 (92) 99 12/22/18 06:00 25 Mechanical Ventilator 50 12/22/18 06:00 100 24 141/71 (94) 99 12/22/18 05:30 108 25 119/69 (86) 98 12/22/18 05:06 116 24 50 12/22/18 05:00 25 Mechanical Ventilator 50 12/22/18 05:00 111 24 128/73 (91) 98 12/22/18 04:30 111 24 122/72 (89) 97 12/22/18 04:00 99.2 111 24 114/51 (72) 98 12/22/18 04:00 111 12/22/18 04:00 24 Mechanical Ventilator 50 12/22/18 04:00 Mechanical Ventilator 12/22/18 04:00 50 12/22/18 03:30 105 24 96/52 (67) 97 12/22/18 03:00 24 Endotracheal Tube 50 12/22/18 03:00 104 24 99/56 (70) 97 12/22/18 02:55 102 24 98 Mechanical Ventilator 50 12/22/18 02:44 97 24 97 Mechanical Ventilator 50 12/22/18 02:44 97 24 50 12/22/18 02:30 98 25 100/50 (67) 97 12/22/18 02:00 104 24 107/53 (71) 98 12/22/18 02:00 24 Mechanical Ventilator 50 12/22/18 01:30 102 24 103/54 (70) 99 12/22/18 01:06 125 30 50 12/22/18 01:00 104 25 107/64 (78) 98 12/22/18 01:00 24 Mechanical Ventilator 50 12/22/18 00:30 110 24 106/46 (66) 97 12/22/18 00:00 50 12/22/18 00:00 24 Simple Mask 50 12/22/18 00:00 Mechanical Ventilator 12/22/18 00:00 99.3 116 24 100/51 (67) 99 12/21/18 23:30 108 24 111/50 (70) 99 12/21/18 23:04 118 26 100 Mechanical Ventilator 50 12/21/18 23:00 114 21 103/54 (70) 99 12/21/18 23:00 24 Mechanical Ventilator 50 12/21/18 22:54 112 24 50 12/21/18 22:54 112 24 99 Mechanical Ventilator 50 12/21/18 22:30 130 27 113/74 (87) 99 12/21/18 22:00 124 24 99/63 (75) 100 12/21/18 22:00 24 Mechanical Ventilator 50 12/21/18 21:45 24 Mechanical Ventilator 60 12/21/18 21:32 110 24 50 12/21/18 21:30 124 24 86/51 (63) 100 12/21/18 21:21 99.4 12/21/18 21:00 130 26 106/60 (75) 100 12/21/18 20:45 24 Mechanical Ventilator 60 12/21/18 20:30 122 25 112/48 (69) 100 12/21/18 20:00 50 12/21/18 20:00 118 12/21/18 20:00 99.5 125 25 118/66 (83) 99 12/21/18 20:00 Mechanical Ventilator 12/21/18 19:30 120 25 99/52 (68) 99 12/21/18 19:05 60 12/21/18 19:03 121 22 100 Mechanical Ventilator 60 12/21/18 19:00 124 23 104/53 (70) 99 12/21/18 19:00 21 105/48 Mechanical Ventilator 90 12/21/18 18:54 113 21 100 Mechanical Ventilator 60 12/21/18 18:54 113 21 60 12/21/18 18:30 116 23 106/47 (66) 99 12/21/18 18:00 117 24 128/72 (90) 100 12/21/18 18:00 25 128/49 Mechanical Ventilator 90 12/21/18 18:00 90 12/21/18 17:30 128 26 90 12/21/18 17:30 123 24 120/61 (80) 100 12/21/18 17:04 23 114/68 Mechanical Ventilator 90 12/21/18 17:00 109 21 144/79 (100) 100 12/21/18 16:58 Mechanical Ventilator 12/21/18 16:30 110 22 125/64 (84) 100 12/21/18 16:00 112 22 125/68 (87) 100 12/21/18 15:51 120 12/21/18 15:50 112 24 100 12/21/18 15:45 99.1 115 23 114/68 (83) 100 12/21/18 15:00 98.3 122 23 138/76 100 Mechanical Ventilator 100 12/21/18 14:46 98.3 120 24 157/79 100 Mechanical Ventilator 100 12/21/18 14:35 22 152/76 Mechanical Ventilator 100 12/21/18 14:00 98.3 118 24 152/78 100 Mechanical Ventilator 100 12/21/18 13:35 20 157/79 Mechanical Ventilator 100 12/21/18 13:20 16 158/76 Endotracheal Tube 100 12/21/18 13:14 124 16 100 12/21/18 13:14 100 12/21/18 13:00 98.2 124 24 156/76 100 Mechanical Ventilator 100 12/21/18 12:00 98.5 124 19 114/68 100 Room Air 12/21/18 11:15 115 20 100 Room Air 21 12/21/18 11:06 133 19 98 Room Air 21 12/21/18 11:04 133 19 99 Room Air 21 12/21/18 10:05 117 17 Room Air 12/21/18 10:05 98.4 117 17 103/65 98 Room Air 12/21/18 09:42 98.6 122 17 131/81 (98) 93 Room Air Intake and Output 12/21/18 12/22/18 18:59 06:59 Intake Total 103.81 ml 1316.81 ml Output Total 690 ml Balance 103.81 ml 626.81 ml Intake Oral 0 ml 0 ml IV Total 103.81 ml 1316.81 ml Output Urine Total 690 ml # Voids 101 100 Laboratory Tests Test 12/21/18 10:45 12/21/18 13:07 12/21/18 13:52 12/21/18 13:53 White Blood Count 8.8 K/UL (4.8-10.8) Red Blood Count 4.10 M/UL (4.20-5.40) L Hemoglobin 12.7 G/DL (12.0-16.0) Hematocrit 39.3 % (37.0-47.0) Mean Corpuscular Volume 96 FL (80-99) Mean Corpuscular Hemoglobin 30.9 PG (27.0-31.0) Mean Corpuscular Hemoglobin Concent 32.2 G/DL (32.0-36.0) Red Cell Distribution Width 14.7 % (11.6-14.8) Platelet Count 292 K/UL (150-450) Mean Platelet Volume 5.0 FL (6.5-10.1) L Neutrophils (%) (Auto) 50.2 % (45.0-75.0) Lymphocytes (%) (Auto) 41.4 % (20.0-45.0) Monocytes (%) (Auto) 6.2 % (1.0-10.0) Eosinophils (%) (Auto) 0.2 % (0.0-3.0) Basophils (%) (Auto) 2.0 % (0.0-2.0) Sodium Level 142 MMOL/L (136-145) Potassium Level 4.0 MMOL/L (3.5-5.1) Chloride Level 110 MMOL/L (98-107) H Carbon Dioxide Level 20 MMOL/L (21-32) L Anion Gap 12 mmol/L (5-15) Blood Urea Nitrogen 11 mg/dL (7-18) Creatinine 1.0 MG/DL (0.55-1.30) Estimat Glomerular Filtration Rate > 60 mL/min (>60) Glucose Level 90 MG/DL (74-106) Calcium Level 8.5 MG/DL (8.5-10.1) Total Bilirubin 0.3 MG/DL (0.2-1.0) Aspartate Amino Transf (AST/SGOT) 44 U/L (15-37) H Alanine Aminotransferase (ALT/SGPT) 58 U/L (12-78) Alkaline Phosphatase 79 U/L (46-116) Troponin I 0.000 ng/mL (0.000-0.056) Total Protein 7.8 G/DL (6.4-8.2) Albumin 3.5 G/DL (3.4-5.0) Globulin 4.3 g/dL Albumin/Globulin Ratio 0.8 (1.0-2.7) L Thyroid Stimulating Hormone (TSH) 0.239 uiU/mL (0.358-3.740) Salicylates Level 46.0 ug/mL (2.8-20) *H 40.0 ug/mL (2.8-20) H Acetaminophen Level < 2 MCG/ML (10-30) L Serum Alcohol < 3 mg/dL Arterial Blood pH 7.166 (7.350-7.450) Arterial Blood Partial Pressure CO2 60.3 mmHg (35.0-45.0) *H Arterial Blood Partial Pressure O2 148.6 mmHg (75.0-100.0) H Arterial Blood HCO3 21.3 mmol/L (22.0-26.0) L Arterial Blood Oxygen Saturation 98.3 % (95-100) Arterial Blood Base Excess -7.9 (-2-2) L Luis Test Positive Triglycerides Level 47 MG/DL (30-150) Test 12/21/18 17:45 12/21/18 21:00 12/22/18 05:00 Arterial Blood pH 7.294 (7.350-7.450) 7.400 (7.350-7.450) Arterial Blood Partial Pressure CO2 43.8 mmHg (35.0-45.0) 31.1 mmHg (35.0-45.0) L Arterial Blood Partial Pressure O2 96.3 mmHg (75.0-100.0) 105.1 mmHg (75.0-100.0) H Arterial Blood HCO3 20.8 mmol/L (22.0-26.0) L 19.1 mmol/L (22.0-26.0) L Arterial Blood Oxygen Saturation 96.8 % (95-100) 97.6 % (95-100) Arterial Blood Base Excess -5.6 (-2-2) L -4.6 (-2-2) L Luis Test Positive Positive White Blood Count 12.0 K/UL (4.8-10.8) H Red Blood Count 3.64 M/UL (4.20-5.40) L Hemoglobin 11.3 G/DL (12.0-16.0) L Hematocrit 34.6 % (37.0-47.0) L Mean Corpuscular Volume 95 FL (80-99) Mean Corpuscular Hemoglobin 31.1 PG (27.0-31.0) H Mean Corpuscular Hemoglobin Concent 32.7 G/DL (32.0-36.0) Red Cell Distribution Width 14.4 % (11.6-14.8) Platelet Count 263 K/UL (150-450) Mean Platelet Volume 4.9 FL (6.5-10.1) L Neutrophils (%) (Auto) 77.0 % (45.0-75.0) H Lymphocytes (%) (Auto) 20.2 % (20.0-45.0) Monocytes (%) (Auto) 2.3 % (1.0-10.0) Eosinophils (%) (Auto) 0.0 % (0.0-3.0) Basophils (%) (Auto) 0.5 % (0.0-2.0) Sodium Level 144 MMOL/L (136-145) Potassium Level 3.2 MMOL/L (3.5-5.1) L Chloride Level 108 MMOL/L (98-107) H Carbon Dioxide Level 25 MMOL/L (21-32) Anion Gap 11 mmol/L (5-15) Blood Urea Nitrogen 9 mg/dL (7-18) Creatinine 1.0 MG/DL (0.55-1.30) Estimat Glomerular Filtration Rate > 60 mL/min (>60) Glucose Level 124 MG/DL (74-106) H Calcium Level 8.1 MG/DL (8.5-10.1) L Microbiology Date/Time Source Procedure Growth Status 12/21/18 13:40 Rectum Received Velasquez Staton MD Dec 22, 2018 08:56
--- NOTE | 2018-12-22 09:03 | NUR ---
NURSE NOTES: SEEN AND EXAMINED BY DR RAI AND DR SILVERMAN. INFORMED OF LOW K. WILL CONTINUE TO MONITOR.
--- NOTE | 2018-12-22 09:32 | Diagnostic Imaging Report ---
Indication: Chest pain Technique: One view of the chest Comparison: 12/21/2018 Findings: Stable satisfactory positions of endotracheal tube and nasogastric tube. Lungs and pleural spaces remain clear. Heart remains borderline enlarged. Findings are unchanged Impression: Unchanged, over one day, findings as above.
--- NOTE | 2018-12-22 10:33 | Consultation ---
Consult Note Consult Note asked to eval at the request of Dr Thompson for fluid and electrolyte management Patient is a 58-year-old female presented after increased anxiety. She reports having prior history of schizophrenia. She reports having some difficulty with breathing. She reports being more anxious than usual. History is markedly limited by mental status and poor historian. seen in ICU room I examined Obese Intubated has jauregui good urine out put . Assessment/Plan HypoKalemia Mild Anemia s/p Acidosis resolved Respiratory failure Salicylate overdose Psychosis Asthma Obesity Plan: K , Mag , Phos supplement as needed IV Protonix Resp management per Dr hurt monitor renal parameters Aim to taper IV steroids as possible Urine studies Jezry Boudreaux MD Dec 22, 2018 10:33
--- NOTE | 2018-12-22 10:37 | GI Initial Consult Note ---
History of Present Illness General Date patient seen: Dec 22, 2018 Time patient seen: 10:30 Reason for Hospitalization: General Complaint Referring physician: AUGIE CARDOSO Reason for Consultation: ANEMIA Present Illness HPI Patient is a 58-year-old female presented after increased anxiety. She reports having prior history of schizophrenia. She reports having some difficulty with breathing. She reports being more anxious than usual. History is markedly limited by mental status and poor historian. GI consulted for anemia. ROS limited, patient seen in ICU intubated reported that the patient had salicylate poisoning was admitted with a level of 46. No reported hematemesis or coffee grounds. No reported melena or hematochezia. Presenting hemoglobin today is 11.3 WBC of 12.0 potassium 3.2. Abdomen is soft , nontender noted with a ventral hernia. Unknown history of endoscopic colonoscopy at this time. Home Meds Active Scripts Olanzapine* (ZYPREXA*) 10 Mg Tablet, 10 MG ORAL DAILY, #10 TAB 0 Refills Prov:Tawanda Salazar MD 04/19/17 Ibuprofen* (MOTRIN*) 600 Mg Tablet, 600 MG ORAL Q8H PRN for For Pain, #30 TAB 0 Refills Prov:Asim Nguyen MD 12/07/16 Furosemide* (LASIX*) 20 Mg Tablet, 20 MG ORAL DAILY for 30 Days, TAB Prov:Asim Nguyen MD 12/07/16 Gabapentin* (GABAPENTIN*) 100 Mg Capsule, 200 MG ORAL THREE TIMES A DAY for 30 Days, CAP Prov:Asim Nguyen MD 12/07/16 Ibuprofen* (MOTRIN*) 600 Mg Tablet, 600 MG ORAL Q8H PRN for For Pain, #30 TAB 0 Refills Prov:Tawanda Salazar MD 04/24/15 Reported Medications Unable to Obtain Medications (UNABLE TO OBTAIN MEDS) 1 Ea Ea 12/21/18 Temazepam (TEMAZEPAM*) 15 Mg Capsule, 15 MG ORAL BEDTIME, #30 CAP 0 Refills 01/21/18 Zolpidem Tartrate* (AMBIEN*) 10 Mg Tablet, 10 MG ORAL HS PRN for Insomnia, TAB 01/11/15 Quetiapine Fumarate* (SEROQUEL*) 25 Mg Tablet, 25 MG ORAL DAILY, TAB 01/11/15 Bupropion Sr* (WELLBUTRIN SR*) 100 Mg Tablet.er, 100 MG ORAL TWICE A DAY for 30 Days, TAB 0 Refills 01/11/15 Cyclobenzaprine Hcl* (FLEXERIL*) 10 Mg Tablet, 10 MG ORAL HS, TAB 11/07/13 Hydrocodone/Acetaminophen (Hydrocodon-Acetaminophn 10-325) 1 Ea Tab, 1 TAB ORAL Q4H PRN for For Pain, #30 TAB 0 Refills 11/07/13 Med list reviewed/reconciled: Yes Allergies: Coded Allergies: No Known Allergies (Unverified , 11/07/13) Patient History Limited by: medical condition History Provided By: Medical Record PMH Narrative Now: No Reviewed Nursing Documentation: PMH: Agreed; PSxH: Agreed Nursing Documentation-PMH Past Medical History: No History, Except For Social History: Reports: drug use Review of Systems All Other Systems: limited Physical Exam Vital Signs Date Time Temp Pulse Resp B/P (MAP) Pulse Ox O2 Delivery O2 Flow Rate FiO2 12/21/18 09:42 98.6 122 17 131/81 (98) 93 Room Air 12/21/18 11:04 21 Sp02 EP Interpretation: reviewed, normal Labs Laboratory Tests Test 12/21/18 10:45 12/21/18 13:07 12/21/18 13:52 12/21/18 13:53 White Blood Count 8.8 K/UL (4.8-10.8) Red Blood Count 4.10 M/UL (4.20-5.40) L Hemoglobin 12.7 G/DL (12.0-16.0) Hematocrit 39.3 % (37.0-47.0) Mean Corpuscular Volume 96 FL (80-99) Mean Corpuscular Hemoglobin 30.9 PG (27.0-31.0) Mean Corpuscular Hemoglobin Concent 32.2 G/DL (32.0-36.0) Red Cell Distribution Width 14.7 % (11.6-14.8) Platelet Count 292 K/UL (150-450) Mean Platelet Volume 5.0 FL (6.5-10.1) L Neutrophils (%) (Auto) 50.2 % (45.0-75.0) Lymphocytes (%) (Auto) 41.4 % (20.0-45.0) Monocytes (%) (Auto) 6.2 % (1.0-10.0) Eosinophils (%) (Auto) 0.2 % (0.0-3.0) Basophils (%) (Auto) 2.0 % (0.0-2.0) Sodium Level 142 MMOL/L (136-145) Potassium Level 4.0 MMOL/L (3.5-5.1) Chloride Level 110 MMOL/L (98-107) H Carbon Dioxide Level 20 MMOL/L (21-32) L Anion Gap 12 mmol/L (5-15) Blood Urea Nitrogen 11 mg/dL (7-18) Creatinine 1.0 MG/DL (0.55-1.30) Estimat Glomerular Filtration Rate > 60 mL/min (>60) Glucose Level 90 MG/DL (74-106) Calcium Level 8.5 MG/DL (8.5-10.1) Total Bilirubin 0.3 MG/DL (0.2-1.0) Aspartate Amino Transf (AST/SGOT) 44 U/L (15-37) H Alanine Aminotransferase (ALT/SGPT) 58 U/L (12-78) Alkaline Phosphatase 79 U/L (46-116) Troponin I 0.000 ng/mL (0.000-0.056) Total Protein 7.8 G/DL (6.4-8.2) Albumin 3.5 G/DL (3.4-5.0) Globulin 4.3 g/dL Albumin/Globulin Ratio 0.8 (1.0-2.7) L Thyroid Stimulating Hormone (TSH) 0.239 uiU/mL (0.358-3.740) Salicylates Level 46.0 ug/mL (2.8-20) *H 40.0 ug/mL (2.8-20) H Acetaminophen Level < 2 MCG/ML (10-30) L Serum Alcohol < 3 mg/dL Arterial Blood pH 7.166 (7.350-7.450) Arterial Blood Partial Pressure CO2 60.3 mmHg (35.0-45.0) *H Arterial Blood Partial Pressure O2 148.6 mmHg (75.0-100.0) H Arterial Blood HCO3 21.3 mmol/L (22.0-26.0) L Arterial Blood Oxygen Saturation 98.3 % (95-100) Arterial Blood Base Excess -7.9 (-2-2) L Luis Test Positive Triglycerides Level 47 MG/DL (30-150) Test 12/21/18 17:45 12/21/18 21:00 12/22/18 05:00 Arterial Blood pH 7.294 (7.350-7.450) 7.400 (7.350-7.450) Arterial Blood Partial Pressure CO2 43.8 mmHg (35.0-45.0) 31.1 mmHg (35.0-45.0) L Arterial Blood Partial Pressure O2 96.3 mmHg (75.0-100.0) 105.1 mmHg (75.0-100.0) H Arterial Blood HCO3 20.8 mmol/L (22.0-26.0) L 19.1 mmol/L (22.0-26.0) L Arterial Blood Oxygen Saturation 96.8 % (95-100) 97.6 % (95-100) Arterial Blood Base Excess -5.6 (-2-2) L -4.6 (-2-2) L Luis Test Positive Positive White Blood Count 12.0 K/UL (4.8-10.8) H Red Blood Count 3.64 M/UL (4.20-5.40) L Hemoglobin 11.3 G/DL (12.0-16.0) L Hematocrit 34.6 % (37.0-47.0) L Mean Corpuscular Volume 95 FL (80-99) Mean Corpuscular Hemoglobin 31.1 PG (27.0-31.0) H Mean Corpuscular Hemoglobin Concent 32.7 G/DL (32.0-36.0) Red Cell Distribution Width 14.4 % (11.6-14.8) Platelet Count 263 K/UL (150-450) Mean Platelet Volume 4.9 FL (6.5-10.1) L Neutrophils (%) (Auto) 77.0 % (45.0-75.0) H Lymphocytes (%) (Auto) 20.2 % (20.0-45.0) Monocytes (%) (Auto) 2.3 % (1.0-10.0) Eosinophils (%) (Auto) 0.0 % (0.0-3.0) Basophils (%) (Auto) 0.5 % (0.0-2.0) Sodium Level 144 MMOL/L (136-145) Potassium Level 3.2 MMOL/L (3.5-5.1) L Chloride Level 108 MMOL/L (98-107) H Carbon Dioxide Level 25 MMOL/L (21-32) Anion Gap 11 mmol/L (5-15) Blood Urea Nitrogen 9 mg/dL (7-18) Creatinine 1.0 MG/DL (0.55-1.30) Estimat Glomerular Filtration Rate > 60 mL/min (>60) Glucose Level 124 MG/DL (74-106) H Calcium Level 8.1 MG/DL (8.5-10.1) L General Appearance: well appearing, no apparent distress, alert, obese Head: normocephalic EENT: PERRL/EOMI, normal ENT inspection Neck: supple Respiratory: normal breath sounds, no respiratory distress Cardiovascular: normal rate Gastrointestinal: normal inspection, non tender, soft, normal bowel sounds, non -distended Rectal: deferred Genitourinary: no CVA tenderness Musculoskeletal: normal inspection, back normal Skin: normal inspection, normal color, no rash, warm/dry, palpation normal, well hydrated Lymphatic: normal inspection, no adenopathy Current Medications Current Medications Medications (Trade) Dose Ordered Sig/Amaya Route PRN Reason Start Time Stop Time Status Last Admin Dose Admin Albuterol/ Ipratropium (Albuterol/ Ipratropium) 3 ml Q4HRT HHN 12/21/18 19:00 12/26/18 18:59 12/22/18 07:29 Ceftriaxone Sodium 1 gm/ Dextrose 55 ml @ 110 mls/hr Q24H IVPB 12/21/18 18:00 12/28/18 17:59 12/21/18 18:26 Chlorhexidine Gluconate (Shayna-Hex 2%) 1 applic DAILY@2000 TOPIC 12/21/18 20:00 01/20/19 19:59 Dextrose (Dextrose 50%) 25 ml Q30M PRN IV Hypoglycemia 12/21/18 17:00 01/20/19 16:59 Dextrose (Dextrose 50%) 50 ml Q30M PRN IV Hypoglycemia 12/21/18 17:00 01/20/19 16:59 Fentanyl Citrate 1000 mcg/Sodium Chloride 100 ml @ 0 mls/hr Q24H IV 12/21/18 16:15 12/28/18 16:14 12/22/18 08:29 Heparin Sodium/ Sodium Chloride (Heparin 1000 units/500ml Premix) 1,000 unit ONCE PRN IV picc line placement 12/21/18 17:00 12/22/18 16:59 Insulin Aspart (NovoLOG) EVERY 6 HOURS SUBQ 12/21/18 18:00 01/20/19 17:59 12/22/18 05:42 Lidocaine HCl (Xylocaine 1% 30ml) 30 ml ONCE PRN INJ picc line placement 12/21/18 17:00 12/22/18 16:59 Lorazepam (Ativan 2mg/ml 1ml) 1 mg Q2H PRN IV For Anxiety 12/21/18 16:15 12/28/18 16:14 12/22/18 08:28 Methylprednisolone Sodium Succinate (Solu-MEDROL) 60 mg EVERY 8 HOURS IVP 12/21/18 22:00 01/20/19 21:59 12/22/18 05:38 Potassium Chloride 100 ml @ 100 mls/hr Q1H IVPB 12/22/18 09:30 12/22/18 13:29 12/22/18 10:00 Quetiapine Fumarate (SEROquel) 25 mg Q6H PRN ORAL For Anxiety 12/21/18 22:45 01/20/19 22:44 UNV Sodium Bicarbonate 150 ml/Dextrose 1,150 ml @ 100 mls/hr [id number] IV 12/21/18 18:00 01/20/19 17:59 12/22/18 09:57 GI: Plan Problems: (1) Anemia (2) Salicylate overdose Plan No plans for GI procedures at this time Medical management for salicylate overdose Sodium bicarbonate Electrolyte correction anemia work up OB stool r/o GI bleed monitor H&H, prn transfusions bowel regimen ppi fu labs Discussed with Dr. Saldana. Thank you for this patient referral, we will follow. The patient was seen and examined at bedside and all new and available data was reviewed in the patients chart. I agree with the above findings, impression and plan. (Patient seen earlier today. Signature stamp does not reflect patient encounter time.). - MD Neena Orellana,[facility] [employer] Dec 22, 2018 10:37
--- NOTE | 2018-12-22 10:45 | Consultation ---
DATE OF CONSULTATION: 12/22/2018 CARDIOLOGY CONSULTATION CONSULTING PHYSICIAN: Velasquez Staton M.D. REFERRING PHYSICIAN: Jasmine Joe M.D. REASON FOR CONSULTATION: Management of tachycardia. HISTORY OF PRESENT ILLNESS: The patient is a very unfortunate 58-year-old female, who presents to the hospital with difficulty with breathing as well as anxiety. At the time of arrival to the hospital, the history was limited because of mental status and the fact the patient is a poor historian. Currently, the patient is intubated and this report is prepared by using the medical record. Upon initial evaluation in the emergency department, initial blood pressure was 131/81 mmHg and heart rate was 122. A 12-lead electrocardiogram revealed sinus tachycardia at a rate of 115 with normal axis and nonspecific ST and T-wave abnormalities. There was one single ventricular premature complex. Chest x-ray done in the emergency department showed total white-out of the right lung. The patient was intubated in the emergency department and was transferred to intensive care unit for further evaluation and management. Cardiology consultation was made at the request of Dr. Joe for evaluation of tachycardia. According to the records, no prior history of coronary artery disease, congestive heart failure, or cardiac arrhythmias. PAST MEDICAL HISTORY: 1. Schizophrenia. 2. Morbid obesity. 3. History of anxiety. PAST SURGICAL HISTORY: None. MEDICATIONS: List of medication from the nursing facility, Wellbutrin 100 mg twice daily, Lexapro 10 mg p.o. nightly, Lasix 20 mg p.o. daily, gabapentin 200 mg three times a day, [place] 10/325 mg one tablet q.4 h. p.r.n. pain, ibuprofen 600 mg q.8 h. p.r.n. pain, Zyprexa 10 mg p.o. daily, Seroquel 25 mg daily, temazepam 15 mg p.o. nightly, and zolpidem 10 mg p.o. nightly p.r.n. insomnia. ALLERGIES: No known drug allergies. FAMILY HISTORY: Unknown and not charted. REVIEW OF SYSTEMS: A 12-system review cannot be obtained as the patient is currently intubated and sedated. PHYSICAL EXAMINATION: VITAL SIGNS: Blood pressure at time of arrival to the hospital was 131/81 mmHg, pulse 122, temperature 98.6 degrees Fahrenheit, O2 saturation 92% on room air, and respirations 17. Currently, the patient is intubated and FiO2 of 50%, saturation of 96%. Currently heart rate is 105 and blood pressure 121/70 mmHg. GENERAL: The patient is a very unfortunate 58-year-old black [place]ian intubated and sedated. HEENT: Atraumatic and normocephalic. Anicteric. Pupils are equal, round, and reactive to light and accommodation. NECK: JVP cannot be assessed. No carotid bruit. CARDIOVASCULAR: Normal S1, S2. Regular rate and rhythm. No murmurs, gallops, or rubs. PMI is at fourth intercostal space in the midclavicular line. LUNGS: Diminished breath sounds in both lungs. ABDOMEN: Soft, obese. No hepatosplenomegaly. Positive bowel sounds. EXTREMITIES: No evidence of edema, clubbing, or cyanosis. LABORATORY FINDINGS: WBC is 8.8, hemoglobin 12.7, hematocrit 39.3, and platelet count 292,000. Chemistry - sodium 142, potassium 4.0, chloride 110, bicarbonate 20, BUN 11, and creatinine 1.0. Glucose 90. Calcium is 8.5. Troponin I is 0. TSH is 0.2. Toxicology, salicylate was 46 elevated. Serum alcohol less than 3. Acetaminophen less than 2. ASSESSMENT AND PLAN: The patient is a very unfortunate 58-year-old female, seen in cardiology consultation. 1. Sinus tachycardia, most likely due to hypoxemia, as the patient had total right lung white-out, status post intubation. Management of sinus tachycardia, management of the underlying disorder which would be continuation of ventilatory management, pulmonary toilet. No AV carissa agents are required at this time. 2. History of psychosis. 3. History of chronic obstructive pulmonary disease. 4. History of salicylate overdose. 5. Morbid obesity. Total amount of time spent in the intensive care unit of [facility] reviewing the old records, discussion of plan of care with the nursing staff as well as primary care physician, was 50 minutes. I would like to thank for the courtesy of this consultation. Velasquez Staton M.D. DR: KALEB JOB#: [id number] CC:
--- NOTE | 2018-12-22 11:00 | NUR ---
NURSE NOTES: PATIENT TURNED AND REPOSITIONED. STILL ON FENTANYL DRIP FOLLOWING HOSPITAL PROTOCOL, LIGHTLY SEDATED AND ON RESTRAINTS DUE TO PULLING OFF OBJECTS. WILL CONTINUE TO MONITOR.
[2018-12-22] MEDS: Pantoprazole Inj IVP SCH ×2 (11:34→21:05)
[2018-12-22] MEDS ORDERED: LORazepam Inj 2mg/ml 1ml IV PRN (12:15)
[2018-12-22] MEDS ORDERED: Zemuron 50mg/5ml Inj IV ONE (12:46)
[2018-12-22] MEDS ORDERED: Etomidate 40mg/20ml Inj IV ONE (12:46)
--- NOTE | 2018-12-22 13:00 | NUR ---
NURSE NOTES: TOLERATING VENT SETTINGS. TUBE FEEDING STARTED AND TOLERATED. WILL CONTINUE TO MONITOR.
[2018-12-22] MEDS ORDERED: Sodium Bicarbonate 150 ML in D5W 1000ml 1,000 ML IV SCH (14:00)
--- NOTE | 2018-12-22 14:25 | NUR ---
RD ASSESSMENT & RECOMMENDATIONS SEE CARE ACTIVITY FOR COMPLETE ASSESSMENT DAILY ESTIMATED NEEDS: Needs based on Critical care, morbidly obese 11-14 kcal/ kg actual body wt (143kg) kcals/kg 8803-7580 total kcals 2-2.5g/kg IBW (66kg) g protein/kg 132-165 g total protein 25-30ml/kg abw (85kg) mL/kg 7123-0814 total fluid mLs NUTRITION DIAGNOSIS: Swallowing difficulty R/T respiratory status as evidenced by orally intubated and sedated, on OGT feeding. CURRENT TF:Glucerna 1.2 @ 40ml/hr x 24 hrs ENTERAL NUTRITION RECOMMENDATIONS: Vital AF 1.2 @ 55ml/hr x 24 hrs + Prosource 1pkt TID to provide 1320ml, 1584kcal, 99g + 33g prot, 811ml free water * Rec Vital AF 1.2 for critical care * Initiate Vital AF 1.2 @ 25ml/hr x 6hrs, advance 10ml q 4-6 hrs as tolerated to goal rate * Add Prosource 1pkt TID to meet protein needs * HOB over 30 degrees/ water flush per MD ADDITIONAL RECOMMENDATIONS: * CALIBRATED bedscale wt for accurate CBW * Monitor lytes daily, replete as needed * Monitor BGs closely while on Solumedrol
--- NOTE | 2018-12-22 14:51 | Consultation ---
History of Present Illness General Chief Complaint: General Complaint Referring physician: AUGIE CARDOSO Reason for Consultation: ANEMIA Present Illness Allergies: Coded Allergies: No Known Allergies (Unverified , 11/07/13) Medication History Scheduled Bupropion Sr* (Wellbutrin Sr*), 100 MG ORAL TWICE A DAY, (Reported) Cyclobenzaprine Hcl* (Flexeril*), 10 MG ORAL HS, (Reported) Furosemide* (Lasix*), 20 MG ORAL DAILY Gabapentin* (Gabapentin*), 200 MG ORAL THREE TIMES A DAY Olanzapine* (Zyprexa*), 10 MG ORAL DAILY Quetiapine Fumarate* (Seroquel*), 25 MG ORAL DAILY, (Reported) Temazepam (Temazepam*), 15 MG ORAL BEDTIME, (Reported) Scheduled PRN Hydrocodone/Acetaminophen (Hydrocodon-Acetaminophn 10-325), 1 TAB ORAL Q4H PRN for For Pain, (Reported) Ibuprofen* (Motrin*), 600 MG ORAL Q8H PRN for For Pain Ibuprofen* (Motrin*), 600 MG ORAL Q8H PRN for For Pain Zolpidem Tartrate* (Ambien*), 10 MG ORAL HS PRN for Insomnia, (Reported) Miscellaneous Medications Unable to Obtain Medications (Unable To Obtain Meds), (Reported) Patient History Healthcare decision maker Sukhdeep Dowell/ child Resuscitation status Full Code Advanced Directive on File No Physical Exam Last 24 Hour Vital Signs Date Time Temp Pulse Resp B/P (MAP) Pulse Ox O2 Delivery O2 Flow Rate FiO2 12/22/18 14:43 109 24 96 Mechanical Ventilator 45 12/22/18 14:30 106 24 129/64 (85) 96 12/22/18 14:30 106 24 129/64 (85) 96 12/22/18 14:00 108 24 120/67 (84) 96 12/22/18 14:00 108 24 120/67 (84) 96 12/22/18 13:30 109 24 124/71 (88) 96 12/22/18 13:07 117 24 45 12/22/18 13:00 24 Mechanical Ventilator 50 12/22/18 13:00 106 24 129/74 (92) 96 12/22/18 12:30 99.5 104 24 116/61 (79) 96 12/22/18 12:00 99 24 122/68 (86) 99 12/22/18 12:00 97 12/22/18 12:00 Mechanical Ventilator 12/22/18 12:00 24 Mechanical Ventilator 50 12/22/18 12:00 50 12/22/18 11:30 101 24 122/68 (86) 97 12/22/18 11:30 Mechanical Ventilator 45 12/22/18 11:30 Mechanical Ventilator 50 12/22/18 11:00 100 24 126/96 (106) 100 12/22/18 11:00 24 Mechanical Ventilator 50 12/22/18 10:34 103 24 45 12/22/18 10:30 99 24 114/73 (87) 100 12/22/18 10:00 102 24 114/73 (87) 100 12/22/18 10:00 24 Mechanical Ventilator 50 12/22/18 09:30 110 22 134/84 (101) 94 12/22/18 09:14 107 24 50 12/22/18 09:00 24 Mechanical Ventilator 50 12/22/18 09:00 105 24 131/70 (90) 96 12/22/18 08:30 99.3 118 18 129/79 (96) 95 12/22/18 08:29 18 Mechanical Ventilator 50 12/22/18 08:28 18 Mechanical Ventilator 50 12/22/18 08:00 Mechanical Ventilator 12/22/18 08:00 25 Mechanical Ventilator 50 12/22/18 08:00 116 25 129/79 (96) 97 12/22/18 08:00 50 12/22/18 08:00 118 12/22/18 07:36 110 24 99 Mechanical Ventilator 50 12/22/18 07:30 122 17 134/79 (97) 100 12/22/18 07:30 129 27 50 12/22/18 07:29 129 28 97 Mechanical Ventilator 50 12/22/18 07:00 104 24 114/79 (91) 98 12/22/18 07:00 25 Mechanical Ventilator 50 12/22/18 06:30 104 24 135/71 (92) 99 12/22/18 06:00 25 Mechanical Ventilator 50 12/22/18 06:00 100 24 141/71 (94) 99 12/22/18 05:30 108 25 119/69 (86) 98 12/22/18 05:06 116 24 50 12/22/18 05:00 25 Mechanical Ventilator 50 12/22/18 05:00 111 24 128/73 (91) 98 12/22/18 04:30 111 24 122/72 (89) 97 12/22/18 04:00 99.2 111 24 114/51 (72) 98 12/22/18 04:00 111 12/22/18 04:00 24 Mechanical Ventilator 50 12/22/18 04:00 Mechanical Ventilator 12/22/18 04:00 50 12/22/18 03:30 105 24 96/52 (67) 97 12/22/18 03:00 24 Endotracheal Tube 50 12/22/18 03:00 104 24 99/56 (70) 97 12/22/18 02:55 102 24 98 Mechanical Ventilator 50 12/22/18 02:44 97 24 97 Mechanical Ventilator 50 12/22/18 02:44 97 24 50 12/22/18 02:30 98 25 100/50 (67) 97 12/22/18 02:00 104 24 107/53 (71) 98 12/22/18 02:00 24 Mechanical Ventilator 50 12/22/18 01:30 102 24 103/54 (70) 99 12/22/18 01:06 125 30 50 12/22/18 01:00 104 25 107/64 (78) 98 12/22/18 01:00 24 Mechanical Ventilator 50 12/22/18 00:30 110 24 106/46 (66) 97 12/22/18 00:00 50 12/22/18 00:00 24 Simple Mask 50 12/22/18 00:00 Mechanical Ventilator 12/22/18 00:00 99.3 116 24 100/51 (67) 99 12/21/18 23:30 108 24 111/50 (70) 99 12/21/18 23:04 118 26 100 Mechanical Ventilator 50 12/21/18 23:00 114 21 103/54 (70) 99 12/21/18 23:00 24 Mechanical Ventilator 50 12/21/18 22:54 112 24 50 12/21/18 22:54 112 24 99 Mechanical Ventilator 50 12/21/18 22:30 130 27 113/74 (87) 99 12/21/18 22:00 124 24 99/63 (75) 100 12/21/18 22:00 24 Mechanical Ventilator 50 12/21/18 21:45 24 Mechanical Ventilator 60 12/21/18 21:32 110 24 50 8/20/19 21:30 124 24 86/51 (63) 100 12/21/18 21:21 99.4 12/21/18 21:00 130 26 106/60 (75) 100 12/21/18 20:45 24 Mechanical Ventilator 60 12/21/18 20:30 122 25 112/48 (69) 100 12/21/18 20:00 50 12/21/18 20:00 118 12/21/18 20:00 99.5 125 25 118/66 (83) 99 12/21/18 20:00 Mechanical Ventilator 12/21/18 19:30 120 25 99/52 (68) 99 12/21/18 19:05 60 12/21/18 19:03 121 22 100 Mechanical Ventilator 60 12/21/18 19:00 124 23 104/53 (70) 99 12/21/18 19:00 21 105/48 Mechanical Ventilator 90 12/21/18 18:54 113 21 100 Mechanical Ventilator 60 12/21/18 18:54 113 21 60 12/21/18 18:30 116 23 106/47 (66) 99 12/21/18 18:00 117 24 128/72 (90) 100 12/21/18 18:00 25 128/49 Mechanical Ventilator 90 12/21/18 18:00 90 12/21/18 17:30 128 26 90 12/21/18 17:30 123 24 120/61 (80) 100 12/21/18 17:04 23 114/68 Mechanical Ventilator 90 12/21/18 17:00 109 21 144/79 (100) 100 12/21/18 16:58 Mechanical Ventilator 12/21/18 16:30 110 22 125/64 (84) 100 12/21/18 16:00 112 22 125/68 (87) 100 12/21/18 15:51 120 12/21/18 15:50 112 24 100 12/21/18 15:45 99.1 115 23 114/68 (83) 100 12/21/18 15:00 98.3 122 23 138/76 100 Mechanical Ventilator 100 12/21/18 14:46 98.3 120 24 157/79 100 Mechanical Ventilator 100 Intake and Output 12/21/18 12/22/18 19:00 07:00 Intake Total 262.62 ml 1270 ml Output Total 740 ml Balance 262.62 ml 530 ml Intake Oral 0 ml 0 ml IV Total 262.62 ml 1270 ml Output Urine Total 740 ml # Voids 201 Laboratory Tests Test 12/21/18 17:45 12/21/18 21:00 12/22/18 05:00 Arterial Blood pH 7.294 (7.350-7.450) 7.400 (7.350-7.450) Arterial Blood Partial Pressure CO2 43.8 mmHg (35.0-45.0) 31.1 mmHg (35.0-45.0) L Arterial Blood Partial Pressure O2 96.3 mmHg (75.0-100.0) 105.1 mmHg (75.0-100.0) H Arterial Blood HCO3 20.8 mmol/L (22.0-26.0) L 19.1 mmol/L (22.0-26.0) L Arterial Blood Oxygen Saturation 96.8 % (95-100) 97.6 % (95-100) Arterial Blood Base Excess -5.6 (-2-2) L -4.6 (-2-2) L Luis Test Positive Positive White Blood Count 12.0 K/UL (4.8-10.8) H Red Blood Count 3.64 M/UL (4.20-5.40) L Hemoglobin 11.3 G/DL (12.0-16.0) L Hematocrit 34.6 % (37.0-47.0) L Mean Corpuscular Volume 95 FL (80-99) Mean Corpuscular Hemoglobin 31.1 PG (27.0-31.0) H Mean Corpuscular Hemoglobin Concent 32.7 G/DL (32.0-36.0) Red Cell Distribution Width 14.4 % (11.6-14.8) Platelet Count 263 K/UL (150-450) Mean Platelet Volume 4.9 FL (6.5-10.1) L Neutrophils (%) (Auto) 77.0 % (45.0-75.0) H Lymphocytes (%) (Auto) 20.2 % (20.0-45.0) Monocytes (%) (Auto) 2.3 % (1.0-10.0) Eosinophils (%) (Auto) 0.0 % (0.0-3.0) Basophils (%) (Auto) 0.5 % (0.0-2.0) Sodium Level 144 MMOL/L (136-145) Potassium Level 3.2 MMOL/L (3.5-5.1) L Chloride Level 108 MMOL/L (98-107) H Carbon Dioxide Level 25 MMOL/L (21-32) Anion Gap 11 mmol/L (5-15) Blood Urea Nitrogen 9 mg/dL (7-18) Creatinine 1.0 MG/DL (0.55-1.30) Estimat Glomerular Filtration Rate > 60 mL/min (>60) Glucose Level 124 MG/DL (74-106) H Calcium Level 8.1 MG/DL (8.5-10.1) L Height (Feet): 5 Height (Inches): 9.00 Weight (Pounds): 305 Medications Current Medications Medications (Trade) Dose Ordered Sig/Amaya Route PRN Reason Start Time Stop Time Status Last Admin Dose Admin Albuterol/ Ipratropium (Albuterol/ Ipratropium) 3 ml Q4HRT HHN 12/21/18 19:00 12/26/18 18:59 12/22/18 07:29 Ceftriaxone Sodium 1 gm/ Dextrose 55 ml @ 110 mls/hr Q24H IVPB 12/21/18 18:00 12/28/18 17:59 12/21/18 18:26 Chlorhexidine Gluconate (Shayna-Hex 2%) 1 applic DAILY@2000 TOPIC 12/21/18 20:00 01/20/19 19:59 Dextrose (Dextrose 50%) 25 ml Q30M PRN IV Hypoglycemia 12/21/18 17:00 01/20/19 16:59 Dextrose (Dextrose 50%) 50 ml Q30M PRN IV Hypoglycemia 12/21/18 17:00 01/20/19 16:59 Fentanyl Citrate 1000 mcg/Sodium Chloride 100 ml @ 0 mls/hr Q24H IV 12/21/18 16:15 12/28/18 16:14 12/22/18 08:29 Heparin Sodium/ Sodium Chloride (Heparin 1000 units/500ml Premix) 1,000 unit ONCE PRN IV picc line placement 12/21/18 17:00 12/22/18 16:59 Insulin Aspart (NovoLOG) EVERY 6 HOURS SUBQ 12/21/18 18:00 01/20/19 17:59 12/22/18 05:42 Lidocaine HCl (Xylocaine 1% 30ml) 30 ml ONCE PRN INJ picc line placement 12/21/18 17:00 12/22/18 16:59 Lorazepam (Ativan 2mg/ml 1ml) 1 mg Q2H PRN IV agitation / restlessness 12/22/18 12:15 12/28/18 16:14 Methylprednisolone Sodium Succinate (Solu-MEDROL) 60 mg EVERY 8 HOURS IVP 12/21/18 22:00 01/20/19 21:59 12/22/18 13:39 Pantoprazole (Protonix) 40 mg EVERY 12 HOURS IVP 12/22/18 11:00 01/21/19 10:59 12/22/18 11:34 Quetiapine Fumarate (SEROquel) 25 mg Q6H PRN ORAL Agitation 12/22/18 12:30 01/20/19 12:29 Sodium Bicarbonate 150 ml/Dextrose 1,150 ml @ 50 mls/hr Q23H IV 12/23/18 02:00 01/22/19 01:59 Sodium Bicarbonate 150 ml/Dextrose 1,150 ml @ 75 mls/hr [id number] IV 12/22/18 14:00 12/23/18 02:00 12/22/18 13:40 Assessment/Plan Assessment/Plan: Hematology Consultation Reason for Hospitalization:Anemia, sob Referring physician: AUGIE CARDOSO Reason for Consultation: ANEMIA DOS: 12/22/[address] Thompson to see Ms. Bonita Heaton, Patient is a 58-year-old female presented after increased anxiety. She reports having prior history of schizophrenia. She reports having some difficulty with breathing. She reports being more anxious than usual. History is markedly limited by mental status and poor historian. GI consulted for anemia. ROS limited, patient seen in ICU intubated reported that the patient had salicylate poisoning was admitted with a level of 46. No reported hematemesis or coffee grounds. No reported melena or hematochezia. Presenting hemoglobin today is 11.3 WBC of 12.0 potassium 3.2. Abdomen is soft, nontender noted with a ventral hernia. Unknown history of endoscopic colonoscopy at this time. Heme consulted for anemia, drop in h/h pending results, cbc pending Home Meds Active Scripts Olanzapine* (ZYPREXA*) 10 Mg Tablet, 10 MG ORAL DAILY, #10 TAB 0 Refills Prov:Tawanda Salazar MD 04/19/17 Ibuprofen* (MOTRIN*) 600 Mg Tablet, 600 MG ORAL Q8H PRN for For Pain, #30 TAB 0 Refills Prov:Asim Nguyen MD 12/07/16 Furosemide* (LASIX*) 20 Mg Tablet, 20 MG ORAL DAILY for 30 Days, TAB Prov:Asim Nguyen MD 12/07/16 Gabapentin* (GABAPENTIN*) 100 Mg Capsule, 200 MG ORAL THREE TIMES A DAY for 30 Days, CAP Prov:Asim Nguyen MD 12/07/16 Ibuprofen* (MOTRIN*) 600 Mg Tablet, 600 MG ORAL Q8H PRN for For Pain, #30 TAB 0 Refills Prov:Tawanda Salazar MD 04/24/15 Reported Medications Unable to Obtain Medications (UNABLE TO OBTAIN MEDS) 1 Ea Ea 12/21/18 Temazepam (TEMAZEPAM*) 15 Mg Capsule, 15 MG ORAL BEDTIME, #30 CAP 0 Refills 01/21/18 Zolpidem Tartrate* (AMBIEN*) 10 Mg Tablet, 10 MG ORAL HS PRN for Insomnia, TAB 01/11/15 Quetiapine Fumarate* (SEROQUEL*) 25 Mg Tablet, 25 MG ORAL DAILY, TAB 01/11/15 Bupropion Sr* (WELLBUTRIN SR*) 100 Mg Tablet.er, 100 MG ORAL TWICE A DAY for 30 Days, TAB 0 Refills 01/11/15 Cyclobenzaprine Hcl* (FLEXERIL*) 10 Mg Tablet, 10 MG ORAL HS, TAB 11/07/13 Hydrocodone/Acetaminophen (Hydrocodon-Acetaminophn 10-325) 1 Ea Tab, 1 TAB ORAL Q4H PRN for For Pain, #30 TAB 0 Refills 11/07/13 Med list reviewed/reconciled: Yes Allergies: Coded Allergies: No Known Allergies (Unverified , 11/07/13) Patient History Limited by: medical condition History Provided By: Medical Record PMH Narrative Now: No Reviewed Nursing Documentation: PMH: Agreed; PSxH: Agreed Past Medical History: No History, Except For Social History: Reports: drug use Review of Systems All Other Systems: limited Physical Exam General Appearance: well appearing, nad, obese Head: normocephalic Resp: normal breath sounds, no respiratory distress Cardiovascular: normal rate Gastrointestinal: normal inspection, non tender, soft, normal bowel sounds, non -distended Msk: normal inspection, back normal Skin: normal inspection, normal color, no rash, warm/dry, palpation normal, well hydrated Lymphatic: normal inspection, no adenopathy Labs: reviewed Imaging: noted Assessment and Recs: # Anemia of chronic disease (or of iron deficiency) due to underlying chronic medical issues, multifactorial --> Anemia workup has been ordered, rule out gi bleed --> No evidence of hemolysis is noted, peripheral smear has been reviewed. --> Hgb goal >7. Transfuse prn. --> Epogen or iron at this time is not particularly indicated --> Medications have been reviewed --> low threshold for gi evaluation in case has occult + # Leukocytosis is likely due to steriods --> monitor steriod use --> accuchecks qac and qhs --> insulin as needed prn --> on ctx per id prn # Salicylate overdose --> Medical management for salicylate overdose --> Sodium bicarbonate --> IVF started, as per renal # Electrolyte correction --> replace k prn basis The timing of this note does not necessarily reflect the time of the patient was seen. GREATLY APPRECIATE CONSULTATION. Wade Bonds MD Dec 22, 2018 14:51
--- NOTE | 2018-12-22 15:00 | NUR ---
NURSE NOTES: PATIENT SUCTIONED AND REPOSITIONED. NO SIGNS OF DISTRESS OF THE MOMENT. WILL CONTINUE TO MONITOR.
[2018-12-22] MEDS: LORazepam Inj 2mg/ml 1ml IV PRN (15:04)
--- NOTE | 2018-12-22 16:00 | NUR ---
NURSE NOTES: SEEN AND EXAMINED BY DR CARDOSO. INFORMED OF THE TEMP. WILL CONTINUE TO MONITOR.
[2018-12-22 16:06] LABS: APPEARANCE,URINE CLEAR; BILIRUBIN, URINE NEGATIVE (NEGATIVE); GLUCOSE, URINE (UA) NEGATIVE (NEGATIVE); KETONES,URINE 1+ (NEGATIVE); LEUKOCYTE ESTERASE ,URINE 1+ (NEGATIVE); NITRITE,URINE NEGATIVE (NEGATIVE); PH,URINE 6 (4.5-8.0); PROTEIN,URINE 3+ (NEGATIVE); UROBILINOGEN,URINE NORMAL MG/DL (0.0-1.0)
[2018-12-22 16:07] LABS: COLOR,URINE YELLOW
--- NOTE | 2018-12-22 16:30 | Consultation ---
DATE OF CONSULTATION: 12/22/2018 INFECTIOUS DISEASE CONSULT CONSULTING PHYSICIAN: Nikos Martinez M.D. PRIMARY ATTENDING: Jasmine Joe M.D. REASON FOR CONSULT: Sepsis, COPD exacerbation. HISTORY OF PRESENT ILLNESS: This is a 58-year-old female admitted yesterday because of difficulty of breathing. She was more anxious than before, was tachycardic and developed respiratory failure and intubated in the ER, transferred to ICU. It was found the patient has elevated salicylate level. PAST MEDICAL HISTORY: Significant for COPD, asthma, morbid obesity, schizophrenia, anxiety. ALLERGIES: No known drug allergies. MEDICATIONS: Sodium bicarbonate, Seroquel, lorazepam, Protonix, potassium chloride, methylprednisone, chlorhexidine, albuterol ipratropium inhaler, ceftriaxone, insulin, heparin, phentermine. SOCIAL HISTORY: Has history of opiate dependence. No other history obtainable by the patient. PHYSICAL EXAMINATION: VITAL SIGNS: Temperature 99.5, pulse is 104, blood pressure 116/61. GENERAL APPEARANCE: Obese, on restraints. HEAD AND NECK: Orally intubated. Hodge conjunctivae. HEART: Tachycardic. LUNGS: Clear on ventilator. ABDOMEN: Ventral hernia above umbilicus. EXTREMITIES: Has no edema. GENITOURINARY: Has Mon catheter. No rigidity. Currently sedated on restraints. LABORATORY AND DIAGNOSTIC DATA: WBC 12,000, hemoglobin 11.3, hematocrit 34.6, platelets 263. Sodium 141, potassium 3.2, chloride 108, bicarbonate 25, BUN 9, creatinine 1, glucose 124. Blood gas showed at the time of admission acidosis, pCO2 of 60.3, pO2 of 148.6. Chest x-ray, good position of endotracheal and nasogastric tube. Lungs and pleural space remain clear. Salicylate level was elevated 46. IMPRESSION: Sepsis or systemic inflammatory response syndrome, COPD, hypercapnic respiratory failure, salicylate toxicity, morbid obesity. RECOMMENDATION: We will continue ceftriaxone. We will follow up the cultures. At the end of my exam, I thank Dr. Joe for involving me in the care of this patient. Nikos Martinez M.D. DR: LISANDRO JOB#: [id number] CC: JACQUIE
--- NOTE | 2018-12-22 16:48 | NUR ---
CASE MANAGEMENT: NOTE INTERQUAL MET
--- NOTE | 2018-12-22 17:42 | Pulmonolgy Critical Care Note ---
Critical Care - Asmt/Plan Assessment/Plan: Pulmonary CCM Progress Note HPI Patient is a 58-year-old woman with apparent history of Obstructive Airways Disease, Schizophrenia, Obesity, presented with shortness of breath, increased anxiety. Per ER notes history limited by mental status, being a poor historian. Patient noted to be extremely short of breath requiring intubation in the ED. On mechainical ventilation in the iCU Noted to have elevated ASA level, on alkaline iVF Physical Exam Vital Signs Noted General Appearance: normal inspection, sedated n the ventilator Head: NCAT ENT: Moist mm, ETT, OGT, JVP not visible Neck: normal inspection, full range of motion, supple, no bony tend Respiratory: normal inspection, no respiratory distress, no retraction, mild wheezing, reduced basal BS Cardiovascular: regular rate, rhythm, Normal HS1, HS2 Gastrointestinal: normal inspection, normal bowel sounds, non tender, soft, no guarding, no hernia Genitourinary: no CVA tenderness Musculoskeletal: normal inspection, moderate edema Neurologic: no focal signs noted, sedated Impression: Respiratory failure - Hypercapneic and Hypoxic Elevated Salicylate level Pneumonia Possible Congestive Heart Failure Salicylate overdose Schizophrenia/Psychosis Asthma Obesity Plan: ACV Vt 550 P5 Adjust FIO2 sats 90-94% IV Antibiotics IV Solumedrol HHN Wean as tolerated ISS RANGE AIDE med PRN Sedation BLE dupplex PPX IV alkalinized fluids - reduce OGT feeding advance Labs Noted Test 12/21/18 10:45 White Blood Count 8.8 K/UL (4.8-10.8) Red Blood Count 4.10 M/UL (4.20-5.40) Hemoglobin 12.7 G/DL (12.0-16.0) Hematocrit 39.3 % (37.0-47.0) Mean Corpuscular Volume 96 FL (80-99) Mean Corpuscular Hemoglobin 30.9 PG (27.0-31.0) Mean Corpuscular Hemoglobin Concent 32.2 G/DL (32.0-36.0) Red Cell Distribution Width 14.7 % (11.6-14.8) Platelet Count 292 K/UL (150-450) Mean Platelet Volume 5.0 FL (6.5-10.1) Neutrophils (%) (Auto) 50.2 % (45.0-75.0) Lymphocytes (%) (Auto) 41.4 % (20.0-45.0) Monocytes (%) (Auto) 6.2 % (1.0-10.0) Eosinophils (%) (Auto) 0.2 % (0.0-3.0) Basophils (%) (Auto) 2.0 % (0.0-2.0) Sodium Level 142 MMOL/L (136-145) Potassium Level 4.0 MMOL/L (3.5-5.1) Chloride Level 110 MMOL/L (98-107) Carbon Dioxide Level 20 MMOL/L (21-32) Anion Gap 12 mmol/L (5-15) Blood Urea Nitrogen 11 mg/dL (7-18) Creatinine 1.0 MG/DL (0.55-1.30) Estimat Glomerular Filtration Rate > 60 mL/min (>60) Glucose Level 90 MG/DL (74-106) Calcium Level 8.5 MG/DL (8.5-10.1) Total Bilirubin 0.3 MG/DL (0.2-1.0) Aspartate Amino Transf (AST/SGOT) 44 U/L (15-37) Alanine Aminotransferase (ALT/SGPT) 58 U/L (12-78) Alkaline Phosphatase 79 U/L (46-116) Troponin I 0.000 ng/mL (0.000-0.056) Total Protein 7.8 G/DL (6.4-8.2) Albumin 3.5 G/DL (3.4-5.0) Globulin 4.3 g/dL Albumin/Globulin Ratio 0.8 (1.0-2.7) Thyroid Stimulating Hormone (TSH) 0.239 uiU/mL (0.358-3.740) Salicylates Level 46.0 ug/mL (2.8-20) Acetaminophen Level < 2 MCG/ML (10-30) Serum Alcohol < 3 mg/dL CXR: ETT appropriate, RLL infiltrate, vascular congestion Critical Care - Objective Last 24 Hour Vital Signs Date Time Temp Pulse Resp B/P (MAP) Pulse Ox O2 Delivery O2 Flow Rate FiO2 12/22/18 16:30 98 24 134/67 (89) 97 12/22/18 16:00 45 12/22/18 16:00 94 12/22/18 16:00 99.5 100 24 118/70 (86) 95 12/22/18 16:00 Mechanical Ventilator 12/22/18 15:30 100 24 109/66 (80) 96 12/22/18 15:00 110 24 122/76 (91) 97 12/22/18 14:52 24 Mechanical Ventilator 45 12/22/18 14:49 105 24 96 Mechanical Ventilator 45 12/22/18 14:49 104 24 45 12/22/18 14:43 109 24 96 Mechanical Ventilator 45 12/22/18 14:30 106 24 129/64 (85) 96 12/22/18 14:30 106 24 129/64 (85) 96 12/22/18 14:00 108 24 120/67 (84) 96 12/22/18 14:00 108 24 120/67 (84) 96 12/22/18 13:30 109 24 124/71 (88) 96 12/22/18 13:07 117 24 45 12/22/18 13:00 24 Mechanical Ventilator 50 12/22/18 13:00 106 24 129/74 (92) 96 12/22/18 12:30 99.5 104 24 116/61 (79) 96 12/22/18 12:00 99 24 122/68 (86) 99 12/22/18 12:00 97 12/22/18 12:00 Mechanical Ventilator 12/22/18 12:00 24 Mechanical Ventilator 50 12/22/18 12:00 50 12/22/18 11:30 101 24 122/68 (86) 97 12/22/18 11:30 Mechanical Ventilator 45 12/22/18 11:30 Mechanical Ventilator 50 12/22/18 11:00 100 24 126/96 (106) 100 12/22/18 11:00 24 Mechanical Ventilator 50 12/22/18 10:34 103 24 45 12/22/18 10:30 99 24 114/73 (87) 100 12/22/18 10:00 102 24 114/73 (87) 100 12/22/18 10:00 24 Mechanical Ventilator 50 12/22/18 09:30 110 22 134/84 (101) 94 12/22/18 09:14 107 24 50 12/22/18 09:00 24 Mechanical Ventilator 50 12/22/18 09:00 105 24 131/70 (90) 96 12/22/18 08:30 99.3 118 18 129/79 (96) 95 12/22/18 08:29 18 Mechanical Ventilator 50 12/22/18 08:28 18 Mechanical Ventilator 50 12/22/18 08:00 Mechanical Ventilator 12/22/18 08:00 25 Mechanical Ventilator 50 12/22/18 08:00 116 25 129/79 (96) 97 12/22/18 08:00 50 12/22/18 08:00 118 12/22/18 07:36 110 24 99 Mechanical Ventilator 50 12/22/18 07:30 122 17 134/79 (97) 100 12/22/18 07:30 129 27 50 12/22/18 07:29 129 28 97 Mechanical Ventilator 50 12/22/18 07:00 104 24 114/79 (91) 98 12/22/18 07:00 25 Mechanical Ventilator 50 12/22/18 06:30 104 24 135/71 (92) 99 12/22/18 06:00 25 Mechanical Ventilator 50 12/22/18 06:00 100 24 141/71 (94) 99 12/22/18 05:30 108 25 119/69 (86) 98 12/22/18 05:06 116 24 50 12/22/18 05:00 25 Mechanical Ventilator 50 12/22/18 05:00 111 24 128/73 (91) 98 12/22/18 04:30 111 24 122/72 (89) 97 12/22/18 04:00 99.2 111 24 114/51 (72) 98 12/22/18 04:00 111 12/22/18 04:00 24 Mechanical Ventilator 50 12/22/18 04:00 Mechanical Ventilator 12/22/18 04:00 50 12/22/18 03:30 105 24 96/52 (67) 97 12/22/18 03:00 24 Endotracheal Tube 50 12/22/18 03:00 104 24 99/56 (70) 97 12/22/18 02:55 102 24 98 Mechanical Ventilator 50 12/22/18 02:44 97 24 97 Mechanical Ventilator 50 12/22/18 02:44 97 24 50 12/22/18 02:30 98 25 100/50 (67) 97 12/22/18 02:00 104 24 107/53 (71) 98 12/22/18 02:00 24 Mechanical Ventilator 50 12/22/18 01:30 102 24 103/54 (70) 99 12/22/18 01:06 125 30 50 12/22/18 01:00 104 25 107/64 (78) 98 12/22/18 01:00 24 Mechanical Ventilator 50 12/22/18 00:30 110 24 106/46 (66) 97 12/22/18 00:00 50 12/22/18 00:00 24 Simple Mask 50 12/22/18 00:00 Mechanical Ventilator 12/22/18 00:00 99.3 116 24 100/51 (67) 99 12/21/18 23:30 108 24 111/50 (70) 99 12/21/18 23:04 118 26 100 Mechanical Ventilator 50 12/21/18 23:00 114 21 103/54 (70) 99 12/21/18 23:00 24 Mechanical Ventilator 50 12/21/18 22:54 112 24 50 12/21/18 22:54 112 24 99 Mechanical Ventilator 50 12/21/18 22:30 130 27 113/74 (87) 99 12/21/18 22:00 124 24 99/63 (75) 100 12/21/18 22:00 24 Mechanical Ventilator 50 12/21/18 21:45 24 Mechanical Ventilator 60 12/21/18 21:32 110 24 50 12/21/18 21:30 124 24 86/51 (63) 100 12/21/18 21:21 99.4 12/21/18 21:00 130 26 106/60 (75) 100 12/21/18 20:45 24 Mechanical Ventilator 60 12/21/18 20:30 122 25 112/48 (69) 100 12/21/18 20:00 50 12/21/18 20:00 118 12/21/18 20:00 99.5 125 25 118/66 (83) 99 12/21/18 20:00 Mechanical Ventilator 12/21/18 19:30 120 25 99/52 (68) 99 19 19:05 60 12/21/18 19:03 121 22 100 Mechanical Ventilator 60 12/21/18 19:00 124 23 104/53 (70) 99 12/21/18 19:00 21 105/48 Mechanical Ventilator 90 12/21/18 18:54 113 21 100 Mechanical Ventilator 60 12/21/18 18:54 113 21 60 12/21/18 18:30 116 23 106/47 (66) 99 12/21/18 18:00 117 24 128/72 (90) 100 12/21/18 18:00 25 128/49 Mechanical Ventilator 90 12/21/18 18:00 90 Micro: Microbiology Date/Time Source Procedure Growth Status 12/21/18 13:40 Rectum Received Accucheck: 151 Critical Care - Subjective ROS Limited/Unobtainable: No FI02: 45 Vent Support Breath Rate: 24 Vent Support Mode: AC Vent Tidal Volume: 550 Sputum Amount: Scant PEEP: 5.0 PIP: 32 I&O: Intake and Output 12/21/18 12/22/18 19:00 07:00 Intake Total 262.62 ml 1270 ml Output Total 740 ml Balance 262.62 ml 530 ml Intake Oral 0 ml 0 ml IV Total 262.62 ml 1270 ml Output Urine Total 740 ml # Voids 201 ET-Tube: 7.0 ET Position: 21 Kevan Monsalve MD Dec 22, 2018 17:41
--- NOTE | 2018-12-22 18:00 | NUR ---
NURSE NOTES: PATIENT KEPT CLEAN AND DRY. TOLERATING VENT SETTINGS OF THE MOMENT. NO SIGNS OF DISTRESS. WILL CONTINUE TO MONITOR.
[2018-12-22] MEDS: cefTRIAXone 1 GM in D5W 55 ML IVPB SCH (18:48)
--- NOTE | 2018-12-22 19:15 | Progress Note ---
DATE: 12/22/2018 SUBJECTIVE: The patient is less agitated today. She is intubated. She is in restraints. She was asleep, arousable. When I asked her if this was a suicide attempt, the patient nod her head; however, when I asked her if she was still suicidal, she did not respond. The patient is still having anxiety and needs administration of medication. The patient currently is on Seroquel for agitation. The patient was given propofol in the ER and was sedated today. She is more alert and is able to answer my questions. MENTAL STATUS EXAMINATION: The patient is alert, oriented times self. She knows she is in the hospital, but was unable to assess the patient's mini-mental status for being intubated. ASSESSMENT: 1. Schizophrenia. 2. Agitation. 3. Acute encephalopathy. 4. Status post salicylate overdose. PLAN: 1. We will continue the restraints. 2. The patient is imminent danger to self or others. We will continue to follow and readjust the medications. Laurie Canchola M.D. DR: KIRBY JOB#: [id number] CC:
--- NOTE | 2018-12-22 19:20 | NUR ---
HAND-OFF: Report given to Reid Macias RN.
--- NOTE | 2018-12-22 19:30 | NUR ---
NURSE NOTES: Recvd.on a vent.orally intubated.Asleep on fentanyl drip.suctioned,Tk.beige sec.NS Lavaged.P.Ox-96-97%.See V/S.Scope SR.Pos.chg.Kept comfortable.IV with bicarb.inf.well.F/cath patent See I/O.
[2018-12-22] MEDS: Dyna-Hex 2% Top Sol 2oz TOPIC SCH (20:00)
--- NOTE | 2018-12-22 22:10 | NUR ---
NURSE NOTES: HS care provided.Pos.chg.Kept comfortable.Due meds admin.Suctioned.
[2018-12-23] VITALS (37 sets, daily range): BP systolic 108–163; BP diastolic 59–102
--- NOTE | 2018-12-23 | History and Physical Report ---
DATE OF ADMISSION: 12/21/2018 HISTORY OF PRESENT ILLNESS: The patient is in respiratory failure. The patient is intubated on fentanyl drip, cannot obtain any history at this point. The patient came in with respiratory failure, history of psychosis, obesity, intubation for respiratory failure, IV Solu-Medrol was given in the ER. The patient also had possible salicylate overdose. Drug levels are elevated and cannot get any history from the family. The patient does have , elevated LFTs, elevated troponin, admitted to intensive care unit because of intubation. The patient is obviously in respiratory failure and intubated, cannot get any history at this point. PAST MEDICAL HISTORY: The patient has history of diabetes, COPD, obesity, psychosis, peripheral edema, COPD, history of asthma, anemia, history of chronic pain syndrome. PAST SURGICAL HISTORY: Unable to obtain. MEDICATIONS: We were able to the get the list of medications. Apparently, the patient was on Seroquel, gabapentin, and Zyprexa. ALLERGIES: No known allergies. SOCIAL HISTORY: Unable to obtain. FAMILY HISTORY: Unable to obtain. REVIEW OF SYSTEMS: Unable to obtain. The patient is intubated. PHYSICAL EXAMINATION: VITAL SIGNS: Temperature 99.2, pulse 95, blood pressure 111/62. HEENT: Pupils equally reactive. CARDIOVASCULAR: Regular rate and rhythm. ABDOMEN: Soft. CHEST: Clear to auscultation. EXTREMITIES: A 2+ edema. The patient is morbidly obese. NEUROLOGIC: Cannot obtain neurological exam, the patient is on fentanyl drip LABORATORY DATA: WBC of 8.8, hemoglobin of 12.7, and platelets of 292. Sodium 142, potassium of 4, BUN of 11, creatinine 1, glucose of 90. Troponin 0.239. Salicylate level of 46. ASSESSMENT AND PLAN: 1. Respiratory failure. 2. Obesity. 3. Intubation. 4. NIDDM. 5. Psychosis, rule out overdose. I have asked , Dr. Boudreaux, Dr. Canchola, Dr. Saldana, Dr. Martinez, Dr. Staton, and Dr. John Du to see the patient to assess for the above-mentioned diagnoses as well with the treatment. Jasmine Joe M.D. DR: Burke JOB#: [id number] CC:
--- NOTE | 2018-12-23 00:15 | NUR ---
NURSE NOTES: See V/S.Scope rhythm same.Pos.chg.Suctioned.Derrick.OGT Feeding See I/O.FSBS-[id number] covered.Fentanyl drip at same rate comfortable.
[2018-12-23] MEDS ORDERED: Sodium Bicarbonate 150 ML in D5W 1000ml 1,000 ML IV SCH (02:00)
--- NOTE | 2018-12-23 02:00 | NUR ---
NURSE NOTES: OFF/ON restless/agitated.Kept comfortable at all times.Reassured.Suctioned.Maintain on Fentanyl drip.Cont.Plan of care.
[2018-12-23] MEDS: Albuterol/Ipratropium 3ml neb HHN SCH ×6 (03:26→22:36)
--- NOTE | 2018-12-23 04:30 | NUR ---
NURSE NOTES: Jim Meyer.OFF and ON restless.Kept comfortable at all times.Suctioned.Derrick.vent settings.Weaning determination this am.Derrick.OGT Feeding.See I/O.Blood drawn for cbc/cmp/tsh etc.spec.to lab.
[2018-12-23] MEDS: Solu-MEDROL 125mg Inj IVP SCH ×4 (05:36→23:55)
[2018-12-23 05:40] LABS: BASOPHILS % (AUTO) 0.6 % (0.0-2.0); HEMATOCRIT 36.2 % (37.0-47.0); LYMPHOCYTES % (AUTO) 15.2 % (20.0-45.0); MEAN CORPUSCULAR VOLUME 94 FL (80-99); MONOCYTES % (AUTO) 10.6 % (1.0-10.0); NEUTROPHILS % (AUTO) 73.6 % (45.0-75.0); PLATELET COUNT 276 K/UL (150-450); RED BLOOD COUNT 3.84 M/UL (4.20-5.40); RED CELL DISTRIBUTION WIDTH 14.2 % (11.6-14.8); WHITE BLOOD COUNT 14.9 K/UL (4.8-10.8)
[2018-12-23 05:50] LABS: AMMONIA 47 umol/L (11-32)
[2018-12-23] MEDS: NovoLOG Insulin Flexpen SUBQ SCH ×4 (05:52→23:56)
[2018-12-23 06:09] LABS: ALANINE AMINOTRANSFERASE 63 U/L (12-78); ALBUMIN 3.2 G/DL (3.4-5.0); ALBUMIN/GLOBULIN RATIO 0.9 (1.0-2.7); ALKALINE PHOSPHATASE 73 U/L (46-116); ANION GAP 6 mmol/L (5-15); ASPARTATE AMINO TRANSFERASE 180 U/L (15-37); BILIRUBIN,TOTAL 0.2 MG/DL (0.2-1.0); BLOOD UREA NITROGEN 10 mg/dL (7-18); CALCIUM 8.3 MG/DL (8.5-10.1); CARBON DIOXIDE 29 MMOL/L (21-32); CHLORIDE 104 MMOL/L (98-107); CHOLESTEROL 221 MG/DL (< 200); CREATINE KINASE 7141 U/L (26-308); FERRITIN 35 NG/ML (8-388); GAMMA GLUTAMYL TRANSPEPTIDASE 28 U/L (5-85); HDL CHOLESTEROL 39 MG/DL (40-60); PHOSPHORUS 1.3 MG/DL (2.5-4.9); SODIUM 140 MMOL/L (136-145); TRIGLYCERIDES 51 MG/DL (30-150)
[2018-12-23 06:12] LABS: POTASSIUM 2.6 MMOL/L (3.5-5.1)
[2018-12-23 06:25] LABS: % IRON SATURATION 14 % (15-50); IRON 39 ug/dL (50-175); TOTAL IRON BINDING CAPACITY 278 ug/dL (250-450)
--- NOTE | 2018-12-23 07:08 | NUR ---
HAND-OFF: Report given to CLARENCE GIBSON.
--- NOTE | 2018-12-23 07:09 | NUR ---
NURSE NOTES: RECEIVED PATIENT FROM Reid NICHOLSON RN. PATIENT IS SEEN LYING IN BED, STILL RESTLESS AND SEDATED. ON FENTANYL DRIP AT 50MCG/HR FOLLOWING HOSPITAL PROTOCOL. HOOKED TO [facility]. ORALLY INTUBATED, ETT 7.5 AT 21CM LIP LINE, VENT SETTINGS AC 24, TV 550, FiO2 40%, PEEP 5. NO SIGNS OF DISTRESS OF THE MOMENT. NOTED OGT. TUBE FEEDING RUNNING GLUCERNA 1.2 AT 40ML/HR BUT HELD FOR NOW DUE TO WEANING.GOOD CONNECTED TO BAG, PATENT AND DRAINING URINE. IVS ON R AC G20, R WRIST G20 AND L AC G20, IVF RUNNING D5 W + 3 AMPS OF SODIUM BICARBONATE AT 50ML/HR. NOTED BW RESTRAINTS DUE TO PULLING ETT AND TRYING TO GET OUT OF THE BED. SIDE RAILS UP. CALL LIGHT WITHIN REACH. WILL CONTINUE TO MONITOR.
--- NOTE | 2018-12-23 07:10 | NUR ---
RESPIRATORY NOTE: Received pt on current vent settings AC 24 VT550 40% PEEP 5. ETT secured via anchor fast with no redness around facial area. Bite block in place. Suction with scant amount of secretions. Alarms are on audible. Ambubag bedside. Will continue to monitor.
--- NOTE | 2018-12-23 08:25 | NUR ---
RESPIRATORY NOTE: Pt placed on CPAP PS8. No respiratory distress noted. Pt doing well. Will draw ABG after 1 hr. CLARENCE Farmer noted.
[2018-12-23] MEDS: Pantoprazole Inj IVP SCH ×2 (08:54→21:48)
--- NOTE | 2018-12-23 09:03 | NUR ---
NURSE NOTES: PATIENT IS ON WEANING TRIAL, STARTED AROUND 0825, TOLERATING. TUBE FEEDING ON HOLD FOR NOW. AB G TO FOLLOW. WILL CONTINUE TO MONITOR.
--- NOTE | 2018-12-23 09:15 | GI Progress Note ---
Assessment/Plan Problems: (1) Anemia ICD Codes: D64.9 - Anemia, unspecified SNOMED: 756595007 (2) Salicylate overdose ICD Codes: T39.091A - Poisoning by salicylates, accidental (unintentional), initial encounter SNOMED: 484833193, 0835943 (3) Respiratory failure ICD Codes: J96.90 - Respiratory failure, unspecified, unspecified whether with hypoxia or hypercapnia SNOMED: 439823546 (4) Suicidal intent ICD Codes: R45.851 - Suicidal ideations SNOMED: 523323595 Status: unchanged Status Narrative Discussed with Dr. Saldana. Assessment/Plan No plans for GI procedures at this time Medical management for salicylate overdose TF on hold for possible extubation today Sodium bicarbonate Electrolyte correction anemia work up OB stool r/o GI bleed monitor H&H, prn transfusions bowel regimen ppi fu labs The patient was seen and examined at bedside and all new and available data was reviewed in the patients chart. I agree with the above findings, impression and plan. (Patient seen earlier today. Signature stamp does not reflect patient encounter time.). - Vladimir Saldana MD Subjective Subjective limited Objective Last 24 Hour Vital Signs Date Time Temp Pulse Resp B/P (MAP) Pulse Ox O2 Delivery O2 Flow Rate FiO2 12/23/18 09:00 113 19 150/102 (118) 95 12/23/18 08:45 125 20 150/102 (118) 95 12/23/18 08:30 125 25 150/102 (118) 88 12/23/18 08:15 108 24 134/86 (102) 95 12/23/18 08:15 24 Mechanical Ventilator 40 12/23/18 08:00 Mechanical Ventilator 12/23/18 08:00 99.0 97 24 134/86 (102) 94 12/23/18 08:00 40 12/23/18 08:00 24 Mechanical Ventilator 40 12/23/18 07:30 99 24 150/80 (103) 94 12/23/18 07:22 95 24 97 Mechanical Ventilator 40 12/23/18 07:11 99 24 40 12/23/18 07:07 118 26 99 Mechanical Ventilator 40 12/23/18 07:00 24 Mechanical Ventilator 40 12/23/18 07:00 90 24 150/80 (103) 98 12/23/18 06:30 95 24 128/65 (86) 98 12/23/18 06:00 24 Mechanical Ventilator 40 12/23/18 06:00 93 24 120/74 (89) 98 12/23/18 05:30 101 24 117/77 (90) 98 12/23/18 05:00 114 24 132/74 (93) 98 12/23/18 05:00 24 Mechanical Ventilator 40 12/23/18 05:00 24 Mechanical Ventilator 40 12/23/18 04:58 116 24 60 12/23/18 04:30 95 24 121/66 (84) 98 12/23/18 04:20 98.9 12/23/18 04:00 103 12/23/18 04:00 24 Mechanical Ventilator 40 12/23/18 04:00 40 12/23/18 04:00 Mechanical Ventilator 12/23/18 04:00 99.3 103 24 133/70 (91) 98 12/23/18 03:49 25 Mechanical Ventilator 40 12/23/18 03:38 113 24 93 Mechanical Ventilator 60 12/23/18 03:30 106 24 125/78 (94) 98 12/23/18 03:25 106 24 97 Mechanical Ventilator 60 12/23/18 03:17 114 24 60 12/23/18 03:00 24 Mechanical Ventilator 40 12/23/18 03:00 121 24 129/70 (89) 96 12/23/18 02:30 100 24 117/66 (83) 95 12/23/18 02:00 109 24 130/60 (83) 96 12/23/18 02:00 24 Mechanical Ventilator 40 12/23/18 01:30 94 24 127/68 (87) 96 12/23/18 01:22 124 24 60 12/23/18 01:00 24 Mechanical Ventilator 40 12/23/18 01:00 91 24 108/59 (75) 96 12/23/18 00:30 96 24 113/69 (84) 95 12/23/18 00:00 Mechanical Ventilator 12/23/18 00:00 98.9 95 24 112/60 (77) 96 12/23/18 00:00 24 Mechanical Ventilator 40 12/23/18 00:00 40 12/23/18 00:00 95 12/22/18 23:30 96 24 113/57 (75) 96 12/22/18 23:00 92 24 112/58 (76) 96 12/22/18 23:00 24 Mechanical Ventilator 40 12/22/18 22:58 92 24 96 Mechanical Ventilator 40 12/22/18 22:48 102 24 93 Mechanical Ventilator 12/22/18 22:43 92 24 40 12/22/18 22:30 86 24 110/57 (74) 97 12/22/18 22:00 85 24 123/75 (91) 96 12/22/18 22:00 24 Mechanical Ventilator 40 12/22/18 21:30 88 24 105/58 (74) 97 12/22/18 21:08 24 Mechanical Ventilator 40 12/22/18 21:00 24 Mechanical Ventilator 40 12/22/18 21:00 91 24 110/59 (76) 96 12/22/18 20:48 91 24 40 12/22/18 20:30 95 24 111/62 (78) 96 12/22/18 20:00 99.3 97 24 107/65 (79) 96 12/22/18 20:00 Mechanical Ventilator 12/22/18 20:00 97 12/22/18 20:00 24 Mechanical Ventilator 40 12/22/18 20:00 40 12/22/18 19:30 106 24 118/68 (85) 96 12/22/18 19:28 106 24 96 Mechanical Ventilator 40 12/22/18 19:17 98 24 99 Mechanical Ventilator 40 12/22/18 19:16 98 24 40 45 12/22/18 19:00 104 123/82 (96) 97 12/22/18 19:00 24 Mechanical Ventilator 45 12/22/18 19:00 103 24 123/82 (96) 97 12/22/18 18:30 94 24 139/95 (110) 93 12/22/18 18:00 92 24 116/66 (83) 95 12/22/18 18:00 24 Mechanical Ventilator 45 12/22/18 17:31 93 24 45 12/22/18 17:30 94 24 122/63 (82) 95 12/22/18 17:00 24 Mechanical Ventilator 45 12/22/18 17:00 95 24 122/71 (88) 97 12/22/18 16:30 98 24 134/67 (89) 97 12/22/18 16:00 45 12/22/18 16:00 94 12/22/18 16:00 99.5 100 24 118/70 (86) 95 12/22/18 16:00 24 Mechanical Ventilator 45 12/22/18 16:00 Mechanical Ventilator 12/22/18 15:30 100 24 109/66 (80) 96 12/22/18 15:00 110 24 122/76 (91) 97 12/22/18 14:52 24 Mechanical Ventilator 45 12/22/18 14:49 105 24 96 Mechanical Ventilator 45 12/22/18 14:49 104 24 45 12/22/18 14:43 109 24 96 Mechanical Ventilator 45 12/22/18 14:30 106 24 129/64 (85) 96 12/22/18 14:30 106 24 129/64 (85) 96 12/22/18 14:00 108 24 120/67 (84) 96 12/22/18 14:00 108 24 120/67 (84) 96 12/22/18 13:30 109 24 124/71 (88) 96 12/22/18 13:07 117 24 45 12/22/18 13:00 24 Mechanical Ventilator 50 12/22/18 13:00 106 24 129/74 (92) 96 12/22/18 12:30 99.5 104 24 116/61 (79) 96 12/22/18 12:00 99 24 122/68 (86) 99 12/22/18 12:00 97 12/22/18 12:00 Mechanical Ventilator 12/22/18 12:00 24 Mechanical Ventilator 50 12/22/18 12:00 50 12/22/18 11:30 101 24 122/68 (86) 97 12/22/18 11:30 Mechanical Ventilator 45 12/22/18 11:30 Mechanical Ventilator 50 12/22/18 11:00 100 24 126/96 (106) 100 12/22/18 11:00 24 Mechanical Ventilator 50 12/22/18 10:34 103 24 45 12/22/18 10:30 99 24 114/73 (87) 100 12/22/18 10:00 102 24 114/73 (87) 100 12/22/18 10:00 24 Mechanical Ventilator 50 12/22/18 09:30 110 22 134/84 (101) 94 Intake and Output 12/22/18 12/23/18 18:59 06:59 Intake Total 1688 ml 1495 ml Output Total 515 ml 435 ml Balance 1173 ml 1060 ml Intake Oral 0 ml Free Water 50 ml 160 ml IV Total 1608 ml 1005 ml Tube Feeding 30 ml 330 ml Output Urine Total 515 ml 435 ml Laboratory Tests Test 12/22/18 13:00 12/23/18 05:00 Urine Color Yellow Urine Appearance Clear Urine pH 6 (4.5-8.0) Urine Specific [place] 1.010 (1.005-1.035) Urine Protein 3+ (NEGATIVE) H Urine Glucose (UA) Negative (NEGATIVE) Urine Ketones 1+ (NEGATIVE) H Urine Blood 5+ (NEGATIVE) H Urine Nitrite Negative (NEGATIVE) Urine Bilirubin Negative (NEGATIVE) Urine Urobilinogen Normal MG/DL (0.0-1.0) Urine Leukocyte Esterase 1+ (NEGATIVE) H Urine RBC 60-80 /HPF (0 - 2) H Urine WBC 2-4 /HPF (0 - 2) Urine Squamous Epithelial Cells None /LPF (NONE/OCC) Urine Bacteria Occasional /HPF (NONE) White Blood Count 14.9 K/UL (4.8-10.8) H Red Blood Count 3.84 M/UL (4.20-5.40) L Hemoglobin 12.0 G/DL (12.0-16.0) Hematocrit 36.2 % (37.0-47.0) L Mean Corpuscular Volume 94 FL (80-99) Mean Corpuscular Hemoglobin 31.2 PG (27.0-31.0) H Mean Corpuscular Hemoglobin Concent 33.1 G/DL (32.0-36.0) Red Cell Distribution Width 14.2 % (11.6-14.8) Platelet Count 276 K/UL (150-450) Mean Platelet Volume 4.8 FL (6.5-10.1) L Neutrophils (%) (Auto) 73.6 % (45.0-75.0) Lymphocytes (%) (Auto) 15.2 % (20.0-45.0) L Monocytes (%) (Auto) 10.6 % (1.0-10.0) H Eosinophils (%) (Auto) 0.0 % (0.0-3.0) Basophils (%) (Auto) 0.6 % (0.0-2.0) Reticulocyte Count Pending Prothrombin Time 11.1 SEC (9.30-11.50) Prothromb Time International Ratio 1.0 (0.9-1.1) Activated Partial Thromboplast Time 25 SEC (23-33) Sodium Level 140 MMOL/L (136-145) Potassium Level 2.6 MMOL/L (3.5-5.1) *L Chloride Level 104 MMOL/L (98-107) Carbon Dioxide Level 29 MMOL/L (21-32) Anion Gap 6 mmol/L (5-15) Blood Urea Nitrogen 10 mg/dL (7-18) Creatinine 1.0 MG/DL (0.55-1.30) Estimat Glomerular Filtration Rate > 60 mL/min (>60) Glucose Level 126 MG/DL (74-106) H Hemoglobin A1c 6.0 % (4.3-6.0) Lactic Acid Level 1.80 mmol/L (0.4-2.0) Uric Acid 1.0 MG/DL (2.6-7.2) L Calcium Level 8.3 MG/DL (8.5-10.1) L Phosphorus Level 1.3 MG/DL (2.5-4.9) L Magnesium Level 2.2 MG/DL (1.8-2.4) Iron Level 39 ug/dL (50-175) L Total Iron Binding Capacity 278 ug/dL (250-450) Percent Iron Saturation 14 % (15-50) L Unsaturated Iron Binding 239 ug/dL (112-346) Ferritin 35 NG/ML (8-388) Total Bilirubin 0.2 MG/DL (0.2-1.0) Gamma Glutamyl Transpeptidase 28 U/L (5-85) Aspartate Amino Transf (AST/SGOT) 180 U/L (15-37) H Alanine Aminotransferase (ALT/SGPT) 63 U/L (12-78) Alkaline Phosphatase 73 U/L (46-116) Ammonia 47 umol/L (11-32) H Total Creatine Kinase 7141 U/L (26-308) H C-Reactive Protein, Quantitative 0.9 mg/dL (0.00-0.90) Pro-B-Type Natriuretic Peptide 76 pg/mL (0-125) Total Protein 6.8 G/DL (6.4-8.2) Albumin 3.2 G/DL (3.4-5.0) L Globulin 3.6 g/dL Albumin/Globulin Ratio 0.9 (1.0-2.7) L Triglycerides Level 51 MG/DL (30-150) Cholesterol Level 221 MG/DL (< 200) H LDL Cholesterol 161 mg/dL (<100) H HDL Cholesterol 39 MG/DL (40-60) L Cholesterol/HDL Ratio 5.7 (3.3-4.4) H Lipase 831 U/L (73-393) H Vitamin B12 Level 592 PG/ML (193-986) Folate 10.9 NG/ML (8.6-58.9) Thyroid Stimulating Hormone (TSH) 0.237 uiU/mL (0.358-3.740) Free Thyroxine 0.74 NG/DL (0.76-1.46) L Salicylates Level 11.6 ug/mL (2.8-20) Height (Feet): 5 Height (Inches): 9.00 Weight (Pounds): 307 General Appearance: no apparent distress Marc Chaudhary NP Dec 23, 2018 09:15
[2018-12-23] MEDS ORDERED: D5 1/2NS w/KCl 20mEq 1,000 ML IV SCH (10:30)
[2018-12-23] MEDS ORDERED: Potassium Phosphate 30 MM in NS 275 ML IV ONE (10:30)
--- NOTE | 2018-12-23 10:30 | NUR ---
NURSE NOTES: DR CARRILLO INFORMED OF ABG WHILE ON CPAP. CALLED BACK AND GAVE NEW ORDERS. PATIENT WAS PLACED BACK TO AC MODE. FEEDS STILL OFF. WILL CONTINUE TO MONITOR.
--- NOTE | 2018-12-23 10:38 | Nephrology Progress Note ---
Assessment/Plan Problem List: (1) Salicylate overdose (2) Psychosis (3) Anemia (4) Obesity (5) Hypokalemia (6) Rhabdomyolysis Assessment: high CPK Assessment HypoKalemia Mild Anemia s/p Acidosis resolved Respiratory failure Salicylate overdose Psychosis Asthma Obesity Plan Plan: K , Mag , Phos supplement as needed change IV fluids weaning IV Protonix Resp management per Dr hurt monitor renal parameters Aim to taper IV steroids as possible Urine studies Subjective ROS Limited/Unobtainable: Yes Interval Events/Complaints seen 8.15 am Objective Objective Last 24 Hour Vital Signs Date Time Temp Pulse Resp B/P (MAP) Pulse Ox O2 Delivery O2 Flow Rate FiO2 12/23/18 10:30 126 26 40 12/23/18 09:00 113 19 150/102 (118) 95 12/23/18 08:45 125 20 150/102 (118) 95 12/23/18 08:30 125 25 150/102 (118) 88 12/23/18 08:30 114 19 40 12/23/18 08:25 100 12/23/18 08:25 104 16 40 12/23/18 08:15 108 24 134/86 (102) 95 12/23/18 08:15 24 Mechanical Ventilator 40 12/23/18 08:00 Mechanical Ventilator 12/23/18 08:00 99.0 97 24 134/86 (102) 94 12/23/18 08:00 40 12/23/18 08:00 24 Mechanical Ventilator 40 12/23/18 07:30 99 24 150/80 (103) 94 12/23/18 07:22 95 24 97 Mechanical Ventilator 40 12/23/18 07:11 99 24 40 12/23/18 07:07 118 26 99 Mechanical Ventilator 40 12/23/18 07:00 24 Mechanical Ventilator 40 12/23/18 07:00 90 24 150/80 (103) 98 12/23/18 06:30 95 24 128/65 (86) 98 12/23/18 06:00 24 Mechanical Ventilator 40 12/23/18 06:00 93 24 120/74 (89) 98 12/23/18 05:30 101 24 117/77 (90) 98 12/23/18 05:00 114 24 132/74 (93) 98 12/23/18 05:00 24 Mechanical Ventilator 40 12/23/18 05:00 24 Mechanical Ventilator 40 12/23/18 04:58 116 24 60 12/23/18 04:30 95 24 121/66 (84) 98 12/23/18 04:20 98.9 12/23/18 04:00 103 12/23/18 04:00 24 Mechanical Ventilator 40 12/23/18 04:00 40 12/23/18 04:00 Mechanical Ventilator 12/23/18 04:00 99.3 103 24 133/70 (91) 98 12/23/18 03:49 25 Mechanical Ventilator 40 12/23/18 03:38 113 24 93 Mechanical Ventilator 60 12/23/18 03:30 106 24 125/78 (94) 98 12/23/18 03:25 106 24 97 Mechanical Ventilator 60 12/23/18 03:17 114 24 60 12/23/18 03:00 24 Mechanical Ventilator 40 12/23/18 03:00 121 24 129/70 (89) 96 12/23/18 02:30 100 24 117/66 (83) 95 12/23/18 02:00 109 24 130/60 (83) 96 12/23/18 02:00 24 Mechanical Ventilator 40 12/23/18 01:30 94 24 127/68 (87) 96 12/23/18 01:22 124 24 60 12/23/18 01:00 24 Mechanical Ventilator 40 12/23/18 01:00 91 24 108/59 (75) 96 12/23/18 00:30 96 24 113/69 (84) 95 12/23/18 00:00 Mechanical Ventilator 12/23/18 00:00 98.9 95 24 112/60 (77) 96 12/23/18 00:00 24 Mechanical Ventilator 40 12/23/18 00:00 40 12/23/18 00:00 95 12/22/18 23:30 96 24 113/57 (75) 96 12/22/18 23:00 92 24 112/58 (76) 96 12/22/18 23:00 24 Mechanical Ventilator 40 12/22/18 22:58 92 24 96 Mechanical Ventilator 40 12/22/18 22:48 102 24 93 Mechanical Ventilator 12/22/18 22:43 92 24 40 12/22/18 22:30 86 24 110/57 (74) 97 12/22/18 22:00 85 24 123/75 (91) 96 12/22/18 22:00 24 Mechanical Ventilator 40 12/22/18 21:30 88 24 105/58 (74) 97 12/22/18 21:08 24 Mechanical Ventilator 40 12/22/18 21:00 24 Mechanical Ventilator 40 12/22/18 21:00 91 24 110/59 (76) 96 12/22/18 20:48 91 24 40 12/22/18 20:30 95 24 111/62 (78) 96 12/22/18 20:00 99.3 97 24 107/65 (79) 96 12/22/18 20:00 Mechanical Ventilator 12/22/18 20:00 97 12/22/18 20:00 24 Mechanical Ventilator 40 12/22/18 20:00 40 12/22/18 19:30 106 24 118/68 (85) 96 12/22/18 19:28 106 24 96 Mechanical Ventilator 40 12/22/18 19:17 98 24 99 Mechanical Ventilator 40 12/22/18 19:16 98 24 40 45 12/22/18 19:00 104 123/82 (96) 97 12/22/18 19:00 24 Mechanical Ventilator 45 12/22/18 19:00 103 24 123/82 (96) 97 12/22/18 18:30 94 24 139/95 (110) 93 12/22/18 18:00 92 24 116/66 (83) 95 12/22/18 18:00 24 Mechanical Ventilator 45 12/22/18 17:31 93 24 45 12/22/18 17:30 94 24 122/63 (82) 95 12/22/18 17:00 24 Mechanical Ventilator 45 12/22/18 17:00 95 24 122/71 (88) 97 12/22/18 16:30 98 24 134/67 (89) 97 12/22/18 16:00 45 12/22/18 16:00 94 12/22/18 16:00 99.5 100 24 118/70 (86) 95 12/22/18 16:00 24 Mechanical Ventilator 45 12/22/18 16:00 Mechanical Ventilator 12/22/18 15:30 100 24 109/66 (80) 96 12/22/18 15:00 110 24 122/76 (91) 97 12/22/18 14:52 24 Mechanical Ventilator 45 12/22/18 14:49 105 24 96 Mechanical Ventilator 45 12/22/18 14:49 104 24 45 12/22/18 14:43 109 24 96 Mechanical Ventilator 45 12/22/18 14:30 106 24 129/64 (85) 96 12/22/18 14:30 106 24 129/64 (85) 96 12/22/18 14:00 108 24 120/67 (84) 96 12/22/18 14:00 108 24 120/67 (84) 96 12/22/18 13:30 109 24 124/71 (88) 96 12/22/18 13:07 117 24 45 12/22/18 13:00 24 Mechanical Ventilator 50 12/22/18 13:00 106 24 129/74 (92) 96 12/22/18 12:30 99.5 104 24 116/61 (79) 96 12/22/18 12:00 99 24 122/68 (86) 99 12/22/18 12:00 97 12/22/18 12:00 Mechanical Ventilator 12/22/18 12:00 24 Mechanical Ventilator 50 12/22/18 12:00 50 12/22/18 11:30 101 24 122/68 (86) 97 12/22/18 11:30 Mechanical Ventilator 45 12/22/18 11:30 Mechanical Ventilator 50 12/22/18 11:00 100 24 126/96 (106) 100 12/22/18 11:00 24 Mechanical Ventilator 50 Intake and Output 12/22/18 12/23/18 18:59 06:59 Intake Total 1688 ml 1495 ml Output Total 515 ml 435 ml Balance 1173 ml 1060 ml Intake Oral 0 ml Free Water 50 ml 160 ml IV Total 1608 ml 1005 ml Tube Feeding 30 ml 330 ml Output Urine Total 515 ml 435 ml Laboratory Tests 12/22/18 13:00: Urine Color Yellow, Urine Appearance Clear, Urine pH 6, Urine Specific [place] 1.010, Urine Protein 3+H, Urine Glucose (UA) Negative, Urine Ketones 1+H, Urine Blood 5+H, Urine Nitrite Negative, Urine Bilirubin Negative, Urine Urobilinogen Normal, Urine Leukocyte Esterase 1+H, Urine RBC 60-80H, Urine WBC 2-4, Urine Squamous Epithelial Cells None, Urine Bacteria Occasional 12/23/18 05:00: White Blood Count 14.9H, Red Blood Count 3.84L, Hemoglobin 12.0, Hematocrit 36.2L, Mean Corpuscular Volume 94, Mean Corpuscular Hemoglobin 31.2H, Mean Corpuscular Hemoglobin Concent 33.1, Red Cell Distribution Width 14.2, Platelet Count 276, Mean Platelet Volume 4.8L, Neutrophils (%) (Auto) 73.6, Lymphocytes ( %) (Auto) 15.2L, Monocytes (%) (Auto) 10.6H, Eosinophils (%) (Auto) 0.0, Basophils (%) (Auto) 0.6, Reticulocyte Count 3.5H, Prothrombin Time 11.1, Prothromb Time International Ratio 1.0, Activated Partial Thromboplast Time 25, Sodium Level 140, Potassium Level 2.6*L, Chloride Level 104, Carbon Dioxide Level 29, Anion Gap 6, Blood Urea Nitrogen 10, Creatinine 1.0, Estimat Glomerular Filtration Rate > 60, Glucose Level 126H, Hemoglobin A1c 6.0, Lactic Acid Level 1.80, Uric Acid 1.0L, Calcium Level 8.3L, Phosphorus Level 1.3L, Magnesium Level 2.2, Iron Level 39L, Total Iron Binding Capacity 278, Percent Iron Saturation 14L, Unsaturated Iron Binding 239, Ferritin 35, Total Bilirubin 0.2, Gamma Glutamyl Transpeptidase 28, Aspartate Amino Transf (AST/SGOT) 180H, Alanine Aminotransferase (ALT/SGPT) 63, Alkaline Phosphatase 73, Ammonia 47H, Total Creatine Kinase 7141H, C-Reactive Protein, Quantitative 0.9, Pro-B-Type Natriuretic Peptide 76, Total Protein 6.8, Albumin 3.2L, Globulin 3.6, Albumin/ Globulin Ratio 0.9L, Triglycerides Level 51, Cholesterol Level 221H, LDL Cholesterol 161H, HDL Cholesterol 39L, Cholesterol/HDL Ratio 5.7H, Lipase 831H, Vitamin B12 Level 592, Folate 10.9, Thyroid Stimulating Hormone (TSH) 0.237L, Free Thyroxine 0.74L, Salicylates Level 11.6 12/23/18 09:43: Arterial Blood pH 7.486H, Arterial Blood Partial Pressure CO2 44.5, Arterial Blood Partial Pressure O2 59.0L, Arterial Blood HCO3 32.8H, Arterial Blood Oxygen Saturation 91.5L, Arterial Blood Base Excess 8.4H, Luis Test Positive Height (Feet): 5 Height (Inches): 9.00 Weight (Pounds): 307 General Appearance: moderate distress EENT: other - currently vented Respiratory/Chest: decreased breath sounds Abdomen: distended, other - obese Jerzy Boudreaux MD Dec 23, 2018 10:38
--- NOTE | 2018-12-23 11:10 | Infectious Diseases Prog Note ---
Assessment/Plan Assessment/Plan IMPRESSION: Sepsis or systemic inflammatory response syndrome, COPD, Hypercapnic respiratory failure, s Salicylate toxicity, Morbid obesity. Leukocytosis likely steroid related RECOMMENDATION: We will continue ceftriaxone. We will follow up the cultures. Subjective ROS Limited/Unobtainable: Yes Constitutional: Denies: fever Respiratory: Reports: other - on weaning process Neurologic: Reports: confusion, other - on restraint Allergies: Coded Allergies: No Known Allergies (Unverified , 11/07/13) Objective Vital Signs Last 24 Hour Vital Signs Date Time Temp Pulse Resp B/P (MAP) Pulse Ox O2 Delivery O2 Flow Rate FiO2 12/23/18 10:30 126 26 40 12/23/18 10:00 146 26 163/96 (118) 91 12/23/18 09:15 109 19 150/102 (118) 95 12/23/18 09:00 113 19 150/102 (118) 95 12/23/18 08:45 125 20 150/102 (118) 95 12/23/18 08:30 125 25 150/102 (118) 88 12/23/18 08:30 114 19 40 12/23/18 08:25 100 12/23/18 08:25 104 16 40 12/23/18 08:15 108 24 134/86 (102) 95 12/23/18 08:15 24 Mechanical Ventilator 40 12/23/18 08:00 Mechanical Ventilator 12/23/18 08:00 99.0 97 24 134/86 (102) 94 12/23/18 08:00 40 12/23/18 08:00 24 Mechanical Ventilator 40 12/23/18 07:30 99 24 150/80 (103) 94 12/23/18 07:22 95 24 97 Mechanical Ventilator 40 12/23/18 07:11 99 24 40 12/23/18 07:07 118 26 99 Mechanical Ventilator 40 12/23/18 07:00 24 Mechanical Ventilator 40 12/23/18 07:00 90 24 150/80 (103) 98 12/23/18 06:30 95 24 128/65 (86) 98 12/23/18 06:00 24 Mechanical Ventilator 40 12/23/18 06:00 93 24 120/74 (89) 98 12/23/18 05:30 101 24 117/77 (90) 98 12/23/18 05:00 114 24 132/74 (93) 98 12/23/18 05:00 24 Mechanical Ventilator 40 12/23/18 05:00 24 Mechanical Ventilator 40 12/23/18 04:58 116 24 60 12/23/18 04:30 95 24 121/66 (84) 98 12/23/18 04:20 98.9 12/23/18 04:00 103 12/23/18 04:00 24 Mechanical Ventilator 40 12/23/18 04:00 40 12/23/18 04:00 Mechanical Ventilator 12/23/18 04:00 99.3 103 24 133/70 (91) 98 12/23/18 03:49 25 Mechanical Ventilator 40 12/23/18 03:38 113 24 93 Mechanical Ventilator 60 12/23/18 03:30 106 24 125/78 (94) 98 12/23/18 03:25 106 24 97 Mechanical Ventilator 60 12/23/18 03:17 114 24 60 12/23/18 03:00 24 Mechanical Ventilator 40 12/23/18 03:00 121 24 129/70 (89) 96 12/23/18 02:30 100 24 117/66 (83) 95 12/23/18 02:00 109 24 130/60 (83) 96 12/23/18 02:00 24 Mechanical Ventilator 40 12/23/18 01:30 94 24 127/68 (87) 96 12/23/18 01:22 124 24 60 12/23/18 01:00 24 Mechanical Ventilator 40 12/23/18 01:00 91 24 108/59 (75) 96 12/23/18 00:30 96 24 113/69 (84) 95 12/23/18 00:00 Mechanical Ventilator 12/23/18 00:00 98.9 95 24 112/60 (77) 96 12/23/18 00:00 24 Mechanical Ventilator 40 12/23/18 00:00 40 12/23/18 00:00 95 12/22/18 23:30 96 24 113/57 (75) 96 12/22/18 23:00 92 24 112/58 (76) 96 12/22/18 23:00 24 Mechanical Ventilator 40 12/22/18 22:58 92 24 96 Mechanical Ventilator 40 12/22/18 22:48 102 24 93 Mechanical Ventilator 12/22/18 22:43 92 24 40 12/22/18 22:30 86 24 110/57 (74) 97 12/22/18 22:00 85 24 123/75 (91) 96 12/22/18 22:00 24 Mechanical Ventilator 40 12/22/18 21:30 88 24 105/58 (74) 97 12/22/18 21:08 24 Mechanical Ventilator 40 12/22/18 21:00 24 Mechanical Ventilator 40 12/22/18 21:00 91 24 110/59 (76) 96 12/22/18 20:48 91 24 40 12/22/18 20:30 95 24 111/62 (78) 96 12/22/18 20:00 99.3 97 24 107/65 (79) 96 12/22/18 20:00 Mechanical Ventilator 12/22/18 20:00 97 12/22/18 20:00 24 Mechanical Ventilator 40 12/22/18 20:00 40 12/22/18 19:30 106 24 118/68 (85) 96 12/22/18 19:28 106 24 96 Mechanical Ventilator 40 12/22/18 19:17 98 24 99 Mechanical Ventilator 40 12/22/18 19:16 98 24 40 45 12/22/18 19:00 104 123/82 (96) 97 12/22/18 19:00 24 Mechanical Ventilator 45 12/22/18 19:00 103 24 123/82 (96) 97 12/22/18 18:30 94 24 139/95 (110) 93 12/22/18 18:00 92 24 116/66 (83) 95 12/22/18 18:00 24 Mechanical Ventilator 45 12/22/18 17:31 93 24 45 12/22/18 17:30 94 24 122/63 (82) 95 12/22/18 17:00 24 Mechanical Ventilator 45 12/22/18 17:00 95 24 122/71 (88) 97 12/22/18 16:30 98 24 134/67 (89) 97 12/22/18 16:00 45 12/22/18 16:00 94 12/22/18 16:00 99.5 100 24 118/70 (86) 95 12/22/18 16:00 24 Mechanical Ventilator 45 12/22/18 16:00 Mechanical Ventilator 12/22/18 15:30 100 24 109/66 (80) 96 12/22/18 15:00 110 24 122/76 (91) 97 8/21/19 14:52 24 Mechanical Ventilator 45 12/22/18 14:49 105 24 96 Mechanical Ventilator 45 12/22/18 14:49 104 24 45 12/22/18 14:43 109 24 96 Mechanical Ventilator 45 12/22/18 14:30 106 24 129/64 (85) 96 12/22/18 14:30 106 24 129/64 (85) 96 12/22/18 14:00 108 24 120/67 (84) 96 12/22/18 14:00 108 24 120/67 (84) 96 12/22/18 13:30 109 24 124/71 (88) 96 12/22/18 13:07 117 24 45 12/22/18 13:00 24 Mechanical Ventilator 50 12/22/18 13:00 106 24 129/74 (92) 96 12/22/18 12:30 99.5 104 24 116/61 (79) 96 12/22/18 12:00 99 24 122/68 (86) 99 12/22/18 12:00 97 12/22/18 12:00 Mechanical Ventilator 12/22/18 12:00 24 Mechanical Ventilator 50 12/22/18 12:00 50 12/22/18 11:30 101 24 122/68 (86) 97 12/22/18 11:30 Mechanical Ventilator 45 12/22/18 11:30 Mechanical Ventilator 50 Height (Feet): 5 Height (Inches): 9.00 Weight (Pounds): 307 General Appearance: other - obese HEENT: other - orall intubated Respiratory/Chest: decreased breath sounds, other - on ventilator Cardiovascular: tachycardia Abdomen: soft, non tender, other - abdominal wall hernia Extremities: no edema Neurologic/Psychiatric: alert, responsive, disoriented Microbiology Date/Time Source Procedure Growth Status 12/22/18 13:00 Indwelling Cath Urine Culture - Preliminary NO GROWTH Resulted 12/21/18 13:40 Rectum Received Laboratory Tests Test 12/22/18 13:00 12/23/18 05:00 12/23/18 09:43 Urine Color Yellow Urine Appearance Clear Urine pH 6 (4.5-8.0) Urine Specific [place] 1.010 (1.005-1.035) Urine Protein 3+ (NEGATIVE) H Urine Glucose (UA) Negative (NEGATIVE) Urine Ketones 1+ (NEGATIVE) H Urine Blood 5+ (NEGATIVE) H Urine Nitrite Negative (NEGATIVE) Urine Bilirubin Negative (NEGATIVE) Urine Urobilinogen Normal MG/DL (0.0-1.0) Urine Leukocyte Esterase 1+ (NEGATIVE) H Urine RBC 60-80 /HPF (0 - 2) H Urine WBC 2-4 /HPF (0 - 2) Urine Squamous Epithelial Cells None /LPF (NONE/OCC) Urine Bacteria Occasional /HPF (NONE) White Blood Count 14.9 K/UL (4.8-10.8) H Red Blood Count 3.84 M/UL (4.20-5.40) L Hemoglobin 12.0 G/DL (12.0-16.0) Hematocrit 36.2 % (37.0-47.0) L Mean Corpuscular Volume 94 FL (80-99) Mean Corpuscular Hemoglobin 31.2 PG (27.0-31.0) H Mean Corpuscular Hemoglobin Concent 33.1 G/DL (32.0-36.0) Red Cell Distribution Width 14.2 % (11.6-14.8) Platelet Count 276 K/UL (150-450) Mean Platelet Volume 4.8 FL (6.5-10.1) L Neutrophils (%) (Auto) 73.6 % (45.0-75.0) Lymphocytes (%) (Auto) 15.2 % (20.0-45.0) L Monocytes (%) (Auto) 10.6 % (1.0-10.0) H Eosinophils (%) (Auto) 0.0 % (0.0-3.0) Basophils (%) (Auto) 0.6 % (0.0-2.0) Reticulocyte Count 3.5 % (0.5-2.0) H Prothrombin Time 11.1 SEC (9.30-11.50) Prothromb Time International Ratio 1.0 (0.9-1.1) Activated Partial Thromboplast Time 25 SEC (23-33) Sodium Level 140 MMOL/L (136-145) Potassium Level 2.6 MMOL/L (3.5-5.1) *L Chloride Level 104 MMOL/L (98-107) Carbon Dioxide Level 29 MMOL/L (21-32) Anion Gap 6 mmol/L (5-15) Blood Urea Nitrogen 10 mg/dL (7-18) Creatinine 1.0 MG/DL (0.55-1.30) Estimat Glomerular Filtration Rate > 60 mL/min (>60) Glucose Level 126 MG/DL (74-106) H Hemoglobin A1c 6.0 % (4.3-6.0) Lactic Acid Level 1.80 mmol/L (0.4-2.0) Uric Acid 1.0 MG/DL (2.6-7.2) L Calcium Level 8.3 MG/DL (8.5-10.1) L Phosphorus Level 1.3 MG/DL (2.5-4.9) L Magnesium Level 2.2 MG/DL (1.8-2.4) Iron Level 39 ug/dL (50-175) L Total Iron Binding Capacity 278 ug/dL (250-450) Percent Iron Saturation 14 % (15-50) L Unsaturated Iron Binding 239 ug/dL (112-346) Ferritin 35 NG/ML (8-388) Total Bilirubin 0.2 MG/DL (0.2-1.0) Gamma Glutamyl Transpeptidase 28 U/L (5-85) Aspartate Amino Transf (AST/SGOT) 180 U/L (15-37) H Alanine Aminotransferase (ALT/SGPT) 63 U/L (12-78) Alkaline Phosphatase 73 U/L (46-116) Ammonia 47 umol/L (11-32) H Total Creatine Kinase 7141 U/L (26-308) H C-Reactive Protein, Quantitative 0.9 mg/dL (0.00-0.90) Pro-B-Type Natriuretic Peptide 76 pg/mL (0-125) Total Protein 6.8 G/DL (6.4-8.2) Albumin 3.2 G/DL (3.4-5.0) L Globulin 3.6 g/dL Albumin/Globulin Ratio 0.9 (1.0-2.7) L Triglycerides Level 51 MG/DL (30-150) Cholesterol Level 221 MG/DL (< 200) H LDL Cholesterol 161 mg/dL (<100) H HDL Cholesterol 39 MG/DL (40-60) L Cholesterol/HDL Ratio 5.7 (3.3-4.4) H Lipase 831 U/L (73-393) H Vitamin B12 Level 592 PG/ML (193-986) Folate 10.9 NG/ML (8.6-58.9) Thyroid Stimulating Hormone (TSH) 0.237 uiU/mL (0.358-3.740) Free Thyroxine 0.74 NG/DL (0.76-1.46) L Salicylates Level 11.6 ug/mL (2.8-20) Arterial Blood pH 7.486 (7.350-7.450) Arterial Blood Partial Pressure CO2 44.5 mmHg (35.0-45.0) Arterial Blood Partial Pressure O2 59.0 mmHg (75.0-100.0) L Arterial Blood HCO3 32.8 mmol/L (22.0-26.0) H Arterial Blood Oxygen Saturation 91.5 % (95-100) L Arterial Blood Base Excess 8.4 (-2-2) H Luis Test Positive Current Medications Medications (Trade) Dose Ordered Sig/Amaya Route PRN Reason Start Time Stop Time Status Last Admin Dose Admin Acetaminophen (Tylenol) 650 mg Q4HR PRN NG FOR TEMP >100.5 12/23/18 07:30 01/22/19 07:29 Albuterol/ Ipratropium (Albuterol/ Ipratropium) 3 ml Q4HRT HHN 12/21/18 19:00 12/26/18 18:59 12/23/18 07:07 Ceftriaxone Sodium 1 gm/ Dextrose 55 ml @ 110 mls/hr Q24H IVPB 12/21/18 18:00 12/28/18 17:59 12/22/18 18:48 Dextrose (Dextrose 50%) 25 ml Q30M PRN IV Hypoglycemia 12/21/18 17:00 01/20/19 16:59 Dextrose (Dextrose 50%) 50 ml Q30M PRN IV Hypoglycemia 12/21/18 17:00 01/20/19 16:59 Dextrose/ Electrolytes 1,000 ml @ 75 mls/hr [id number] IV 12/23/18 10:30 01/22/19 10:29 12/23/18 10:59 Fentanyl Citrate 1000 mcg/Sodium Chloride 100 ml @ 0 mls/hr Q24H IV 12/21/18 16:15 12/28/18 16:14 12/23/18 03:49 Insulin Aspart (NovoLOG) EVERY 6 HOURS SUBQ 12/21/18 18:00 01/20/19 17:59 12/23/18 05:52 Lorazepam (Ativan 2mg/ml 1ml) 1 mg Q2H PRN IV agitation / restlessness 12/22/18 12:15 12/28/18 16:14 12/22/18 15:04 Methylprednisolone Sodium Succinate (Solu-MEDROL) 60 mg EVERY 8 HOURS IVP 12/21/18 22:00 01/20/19 21:59 12/23/18 05:36 Pantoprazole (Protonix) 40 mg EVERY 12 HOURS IVP 12/22/18 11:00 01/21/19 10:59 12/23/18 08:54 Potassium Phosphate 30 mm/ Sodium Chloride 285 ml @ 47.5 mls/hr ONCE ONCE IV 12/23/18 10:30 12/23/18 16:29 12/23/18 10:29 Potassium Chloride 100 ml @ 100 mls/hr Q1HR IVPB 12/23/18 10:00 12/23/18 15:59 12/23/18 10:29 Quetiapine Fumarate (SEROquel) 25 mg Q6H PRN ORAL Agitation 12/22/18 12:30 01/20/19 12:29 Nikos Martinez MD Dec 23, 2018 11:10
--- NOTE | 2018-12-23 11:11 | Hematology/Onc Progress Note ---
Assessment/Plan Assessment/Plan Assessment and Recs: # Anemia of chronic disease due to underlying chronic medical issues, multifactorial --> Anemia workup has been ordered, rule out gi bleed --> No evidence of hemolysis is noted, peripheral smear has been reviewed. --> Hgb goal >7. Transfuse prn. --> Epogen or iron at this time is not particularly indicated --> Medications have been reviewed --> low threshold for gi evaluation in case has occult + # Leukocytosis is likely due to steriods --> monitor steriod use --> accuchecks qac and qhs --> insulin as needed prn --> on ctx per id prn --> wbc 12-->15 # Salicylate overdose now improved --> Medical management for salicylate overdose --> Sodium bicarbonate --> IVF started, as per renal # Electrolyte correction --> replace k prn basis # Resp failure --> pending ext The timing of this note does not necessarily reflect the time of the patient was seen. GREATLY APPRECIATE CONSULTATION. Subjective Constitutional: Denies: no symptoms, chills, fever, malaise, weakness, other HEENT: Denies: no symptoms, eye pain, blurred vision, tearing, double vision, ear pain, ear discharge, nose pain, nose congestion, throat pain, throat swelling, mouth pain, mouth swelling, other Cardiovascular: Denies: no symptoms, chest pain, edema, irregular heart rate, lightheadedness, palpitations, syncope, other Respiratory: Denies: no symptoms, cough, shortness of breath, SOB with excertion, SOB at rest, sputum, wheezing, other Gastrointestinal/Abdominal: Denies: no symptoms, abdomen distended, abdominal pain, black stools, tarry stools, blood in stool, constipated, diarrhea, difficulty swallowing, nausea, poor appetite, poor fluid intake, rectal bleeding , vomiting, other Genitourinary: Denies: no symptoms, burning, discharge, frequency, flank pain, hematuria, incontinence, pain, urgency, other Neurologic/Psychiatric: Denies: no symptoms, anxiety, depressed, emotional problems, headache, numbness, paresthesia, pre-existing deficit, seizure, tingling, tremors, weakness, other Allergies: Coded Allergies: No Known Allergies (Unverified , 11/07/13) Subjective 12/23: no events, no bleeding reported, tf held for potential extubation Objective Objective Current Medications Medications (Trade) Dose Ordered Sig/Amaya Route PRN Reason Start Time Stop Time Status Last Admin Dose Admin Acetaminophen (Tylenol) 650 mg Q4HR PRN NG FOR TEMP >100.5 12/23/18 07:30 01/22/19 07:29 Albuterol/ Ipratropium (Albuterol/ Ipratropium) 3 ml Q4HRT HHN 12/21/18 19:00 12/26/18 18:59 12/23/18 11:08 Ceftriaxone Sodium 1 gm/ Dextrose 55 ml @ 110 mls/hr Q24H IVPB 12/21/18 18:00 12/28/18 17:59 12/22/18 18:48 Dextrose (Dextrose 50%) 25 ml Q30M PRN IV Hypoglycemia 12/21/18 17:00 01/20/19 16:59 Dextrose (Dextrose 50%) 50 ml Q30M PRN IV Hypoglycemia 12/21/18 17:00 01/20/19 16:59 Dextrose/ Electrolytes 1,000 ml @ 75 mls/hr [id number] IV 12/23/18 10:30 01/22/19 10:29 12/23/18 10:59 Fentanyl Citrate 1000 mcg/Sodium Chloride 100 ml @ 0 mls/hr Q24H IV 12/21/18 16:15 12/28/18 16:14 12/23/18 03:49 Insulin Aspart (NovoLOG) EVERY 6 HOURS SUBQ 12/21/18 18:00 01/20/19 17:59 12/23/18 05:52 Lorazepam (Ativan 2mg/ml 1ml) 1 mg Q2H PRN IV agitation / restlessness 12/22/18 12:15 12/28/18 16:14 12/22/18 15:04 Methylprednisolone Sodium Succinate (Solu-MEDROL) 60 mg EVERY 8 HOURS IVP 12/21/18 22:00 01/20/19 21:59 12/23/18 05:36 Pantoprazole (Protonix) 40 mg EVERY 12 HOURS IVP 12/22/18 11:00 01/21/19 10:59 12/23/18 08:54 Potassium Phosphate 30 mm/ Sodium Chloride 285 ml @ 47.5 mls/hr ONCE ONCE IV 12/23/18 10:30 12/23/18 16:29 12/23/18 10:29 Potassium Chloride 100 ml @ 100 mls/hr Q1HR IVPB 12/23/18 10:00 12/23/18 15:59 12/23/18 10:29 Quetiapine Fumarate (SEROquel) 25 mg Q6H PRN ORAL Agitation 12/22/18 12:30 01/20/19 12:29 Last 24 Hour Vital Signs Date Time Temp Pulse Resp B/P (MAP) Pulse Ox O2 Delivery O2 Flow Rate FiO2 12/23/18 10:30 126 26 40 12/23/18 10:00 146 26 163/96 (118) 91 12/23/18 09:15 109 19 150/102 (118) 95 12/23/18 09:00 113 19 150/102 (118) 95 12/23/18 08:45 125 20 150/102 (118) 95 12/23/18 08:30 125 25 150/102 (118) 88 12/23/18 08:30 114 19 40 12/23/18 08:25 100 12/23/18 08:25 104 16 40 12/23/18 08:15 108 24 134/86 (102) 95 12/23/18 08:15 24 Mechanical Ventilator 40 12/23/18 08:00 Mechanical Ventilator 12/23/18 08:00 99.0 97 24 134/86 (102) 94 12/23/18 08:00 40 12/23/18 08:00 24 Mechanical Ventilator 40 12/23/18 07:30 99 24 150/80 (103) 94 12/23/18 07:22 95 24 97 Mechanical Ventilator 40 12/23/18 07:11 99 24 40 12/23/18 07:07 118 26 99 Mechanical Ventilator 40 12/23/18 07:00 24 Mechanical Ventilator 40 12/23/18 07:00 90 24 150/80 (103) 98 12/23/18 06:30 95 24 128/65 (86) 98 12/23/18 06:00 24 Mechanical Ventilator 40 12/23/18 06:00 93 24 120/74 (89) 98 12/23/18 05:30 101 24 117/77 (90) 98 12/23/18 05:00 114 24 132/74 (93) 98 12/23/18 05:00 24 Mechanical Ventilator 40 12/23/18 05:00 24 Mechanical Ventilator 40 12/23/18 04:58 116 24 60 12/23/18 04:30 95 24 121/66 (84) 98 12/23/18 04:20 98.9 12/23/18 04:00 103 12/23/18 04:00 24 Mechanical Ventilator 40 12/23/18 04:00 40 12/23/18 04:00 Mechanical Ventilator 12/23/18 04:00 99.3 103 24 133/70 (91) 98 12/23/18 03:49 25 Mechanical Ventilator 40 12/23/18 03:38 113 24 93 Mechanical Ventilator 60 12/23/18 03:30 106 24 125/78 (94) 98 12/23/18 03:25 106 24 97 Mechanical Ventilator 60 12/23/18 03:17 114 24 60 12/23/18 03:00 24 Mechanical Ventilator 40 12/23/18 03:00 121 24 129/70 (89) 96 12/23/18 02:30 100 24 117/66 (83) 95 12/23/18 02:00 109 24 130/60 (83) 96 12/23/18 02:00 24 Mechanical Ventilator 40 12/23/18 01:30 94 24 127/68 (87) 96 12/23/18 01:22 124 24 60 12/23/18 01:00 24 Mechanical Ventilator 40 12/23/18 01:00 91 24 108/59 (75) 96 12/23/18 00:30 96 24 113/69 (84) 95 12/23/18 00:00 Mechanical Ventilator 12/23/18 00:00 98.9 95 24 112/60 (77) 96 12/23/18 00:00 24 Mechanical Ventilator 40 12/23/18 00:00 40 12/23/18 00:00 95 12/22/18 23:30 96 24 113/57 (75) 96 12/22/18 23:00 92 24 112/58 (76) 96 12/22/18 23:00 24 Mechanical Ventilator 40 12/22/18 22:58 92 24 96 Mechanical Ventilator 40 12/22/18 22:48 102 24 93 Mechanical Ventilator 12/22/18 22:43 92 24 40 12/22/18 22:30 86 24 110/57 (74) 97 12/22/18 22:00 85 24 123/75 (91) 96 12/22/18 22:00 24 Mechanical Ventilator 40 12/22/18 21:30 88 24 105/58 (74) 97 12/22/18 21:08 24 Mechanical Ventilator 40 12/22/18 21:00 24 Mechanical Ventilator 40 12/22/18 21:00 91 24 110/59 (76) 96 12/22/18 20:48 91 24 40 12/22/18 20:30 95 24 111/62 (78) 96 12/22/18 20:00 99.3 97 24 107/65 (79) 96 12/22/18 20:00 Mechanical Ventilator 12/22/18 20:00 97 12/22/18 20:00 24 Mechanical Ventilator 40 12/22/18 20:00 40 12/22/18 19:30 106 24 118/68 (85) 96 12/22/18 19:28 106 24 96 Mechanical Ventilator 40 12/22/18 19:17 98 24 99 Mechanical Ventilator 40 12/22/18 19:16 98 24 40 45 12/22/18 19:00 104 123/82 (96) 97 12/22/18 19:00 24 Mechanical Ventilator 45 12/22/18 19:00 103 24 123/82 (96) 97 12/22/18 18:30 94 24 139/95 (110) 93 12/22/18 18:00 92 24 116/66 (83) 95 12/22/18 18:00 24 Mechanical Ventilator 45 12/22/18 17:31 93 24 45 12/22/18 17:30 94 24 122/63 (82) 95 12/22/18 17:00 24 Mechanical Ventilator 45 12/22/18 17:00 95 24 122/71 (88) 97 12/22/18 16:30 98 24 134/67 (89) 97 12/22/18 16:00 45 12/22/18 16:00 94 12/22/18 16:00 99.5 100 24 118/70 (86) 95 12/22/18 16:00 24 Mechanical Ventilator 45 12/22/18 16:00 Mechanical Ventilator 12/22/18 15:30 100 24 109/66 (80) 96 12/22/18 15:00 110 24 122/76 (91) 97 12/22/18 14:52 24 Mechanical Ventilator 45 12/22/18 14:49 105 24 96 Mechanical Ventilator 45 12/22/18 14:49 104 24 45 12/22/18 14:43 109 24 96 Mechanical Ventilator 45 12/22/18 14:30 106 24 129/64 (85) 96 12/22/18 14:30 106 24 129/64 (85) 96 12/22/18 14:00 108 24 120/67 (84) 96 12/22/18 14:00 108 24 120/67 (84) 96 12/22/18 13:30 109 24 124/71 (88) 96 12/22/18 13:07 117 24 45 12/22/18 13:00 24 Mechanical Ventilator 50 12/22/18 13:00 106 24 129/74 (92) 96 12/22/18 12:30 99.5 104 24 116/61 (79) 96 12/22/18 12:00 99 24 122/68 (86) 99 12/22/18 12:00 97 12/22/18 12:00 Mechanical Ventilator 12/22/18 12:00 24 Mechanical Ventilator 50 12/22/18 12:00 50 12/22/18 11:30 101 24 122/68 (86) 97 12/22/18 11:30 Mechanical Ventilator 45 12/22/18 11:30 Mechanical Ventilator 50 12/22/18 11:00 100 24 126/96 (106) 100 12/22/18 11:00 24 Mechanical Ventilator 50 12/22/18 10:34 103 24 45 12/22/18 10:30 99 24 114/73 (87) 100 12/22/18 10:00 102 24 114/73 (87) 100 12/22/18 10:00 24 Mechanical Ventilator 50 12/22/18 09:30 110 22 134/84 (101) 94 12/22/18 09:14 107 24 50 12/22/18 09:00 24 Mechanical Ventilator 50 12/22/18 09:00 105 24 131/70 (90) 96 12/22/18 08:30 99.3 118 18 129/79 (96) 95 12/22/18 08:29 18 Mechanical Ventilator 50 12/22/18 08:28 18 Mechanical Ventilator 50 12/22/18 08:00 Mechanical Ventilator 12/22/18 08:00 25 Mechanical Ventilator 50 12/22/18 08:00 116 25 129/79 (96) 97 12/22/18 08:00 50 12/22/18 08:00 118 12/22/18 07:36 110 24 99 Mechanical Ventilator 50 12/22/18 07:30 122 17 134/79 (97) 100 12/22/18 07:30 129 27 50 12/22/18 07:29 129 28 97 Mechanical Ventilator 50 12/22/18 07:00 104 24 114/79 (91) 98 12/22/18 07:00 25 Mechanical Ventilator 50 12/22/18 06:30 104 24 135/71 (92) 99 12/22/18 06:00 25 Mechanical Ventilator 50 12/22/18 06:00 100 24 141/71 (94) 99 12/22/18 05:30 108 25 119/69 (86) 98 12/22/18 05:06 116 24 50 12/22/18 05:00 25 Mechanical Ventilator 50 12/22/18 05:00 111 24 128/73 (91) 98 12/22/18 04:30 111 24 122/72 (89) 97 12/22/18 04:00 99.2 111 24 114/51 (72) 98 12/22/18 04:00 111 12/22/18 04:00 24 Mechanical Ventilator 50 12/22/18 04:00 Mechanical Ventilator 12/22/18 04:00 50 12/22/18 03:30 105 24 96/52 (67) 97 12/22/18 03:00 24 Endotracheal Tube 50 12/22/18 03:00 104 24 99/56 (70) 97 12/22/18 02:55 102 24 98 Mechanical Ventilator 50 12/22/18 02:44 97 24 97 Mechanical Ventilator 50 12/22/18 02:44 97 24 50 12/22/18 02:30 98 25 100/50 (67) 97 12/22/18 02:00 104 24 107/53 (71) 98 12/22/18 02:00 24 Mechanical Ventilator 50 12/22/18 01:30 102 24 103/54 (70) 99 12/22/18 01:06 125 30 50 12/22/18 01:00 104 25 107/64 (78) 98 12/22/18 01:00 24 Mechanical Ventilator 50 12/22/18 00:30 110 24 106/46 (66) 97 12/22/18 00:00 50 12/22/18 00:00 24 Simple Mask 50 12/22/18 00:00 Mechanical Ventilator 12/22/18 00:00 99.3 116 24 100/51 (67) 99 12/21/18 23:30 108 24 111/50 (70) 99 12/21/18 23:04 118 26 100 Mechanical Ventilator 50 12/21/18 23:00 114 21 103/54 (70) 99 12/21/18 23:00 24 Mechanical Ventilator 50 12/21/18 22:54 112 24 50 12/21/18 22:54 112 24 99 Mechanical Ventilator 50 12/21/18 22:30 130 27 113/74 (87) 99 12/21/18 22:00 124 24 99/63 (75) 100 12/21/18 22:00 24 Mechanical Ventilator 50 12/21/18 21:45 24 Mechanical Ventilator 60 12/21/18 21:32 110 24 50 12/21/18 21:30 124 24 86/51 (63) 100 12/21/18 21:00 130 26 106/60 (75) 100 12/21/18 20:45 24 Mechanical Ventilator 60 12/21/18 20:30 122 25 112/48 (69) 100 12/21/18 20:00 50 12/21/18 20:00 118 12/21/18 20:00 99.5 125 25 118/66 (83) 99 12/21/18 20:00 Mechanical Ventilator 12/21/18 19:30 120 25 99/52 (68) 99 12/21/18 19:05 60 12/21/18 19:03 121 22 100 Mechanical Ventilator 60 12/21/18 19:00 124 23 104/53 (70) 99 12/21/18 19:00 21 105/48 Mechanical Ventilator 90 12/21/18 18:54 113 21 100 Mechanical Ventilator 60 12/21/18 18:54 113 21 60 12/21/18 18:30 116 23 106/47 (66) 99 12/21/18 18:00 117 24 128/72 (90) 100 12/21/18 18:00 25 128/49 Mechanical Ventilator 90 12/21/18 18:00 90 19 17:30 128 26 90 12/21/18 17:30 123 24 120/61 (80) 100 12/21/18 17:04 23 114/68 Mechanical Ventilator 90 12/21/18 17:00 109 21 144/79 (100) 100 12/21/18 16:58 Mechanical Ventilator 12/21/18 16:30 110 22 125/64 (84) 100 12/21/18 16:00 112 22 125/68 (87) 100 12/21/18 15:51 120 12/21/18 15:50 112 24 100 12/21/18 15:45 99.1 115 23 114/68 (83) 100 12/21/18 15:00 98.3 122 23 138/76 100 Mechanical Ventilator 100 12/21/18 14:46 98.3 120 24 157/79 100 Mechanical Ventilator 100 12/21/18 14:35 22 152/76 Mechanical Ventilator 100 12/21/18 14:00 98.3 118 24 152/78 100 Mechanical Ventilator 100 12/21/18 13:35 20 157/79 Mechanical Ventilator 100 12/21/18 13:20 16 158/76 Endotracheal Tube 100 12/21/18 13:14 124 16 100 12/21/18 13:14 100 12/21/18 13:00 98.2 124 24 156/76 100 Mechanical Ventilator 100 12/21/18 12:00 98.5 124 19 114/68 100 Room Air 12/21/18 11:15 115 20 100 Room Air 21 Intake and Output 12/22/18 12/23/18 18:59 06:59 Intake Total 1688 ml 1495 ml Output Total 515 ml 435 ml Balance 1173 ml 1060 ml Intake Oral 0 ml Free Water 50 ml 160 ml IV Total 1608 ml 1005 ml Tube Feeding 30 ml 330 ml Output Urine Total 515 ml 435 ml Labs Test 12/21/18 10:45 12/21/18 13:07 12/21/18 13:52 12/21/18 13:53 White Blood Count 8.8 K/UL (4.8-10.8) Red Blood Count 4.10 M/UL (4.20-5.40) Hemoglobin 12.7 G/DL (12.0-16.0) Hematocrit 39.3 % (37.0-47.0) Mean Corpuscular Volume 96 FL (80-99) Mean Corpuscular Hemoglobin 30.9 PG (27.0-31.0) Mean Corpuscular Hemoglobin Concent 32.2 G/DL (32.0-36.0) Red Cell Distribution Width 14.7 % (11.6-14.8) Platelet Count 292 K/UL (150-450) Mean Platelet Volume 5.0 FL (6.5-10.1) Neutrophils (%) (Auto) 50.2 % (45.0-75.0) Lymphocytes (%) (Auto) 41.4 % (20.0-45.0) Monocytes (%) (Auto) 6.2 % (1.0-10.0) Eosinophils (%) (Auto) 0.2 % (0.0-3.0) Basophils (%) (Auto) 2.0 % (0.0-2.0) Sodium Level 142 MMOL/L (136-145) Potassium Level 4.0 MMOL/L (3.5-5.1) Chloride Level 110 MMOL/L (98-107) Carbon Dioxide Level 20 MMOL/L (21-32) Anion Gap 12 mmol/L (5-15) Blood Urea Nitrogen 11 mg/dL (7-18) Creatinine 1.0 MG/DL (0.55-1.30) Estimat Glomerular Filtration Rate > 60 mL/min (>60) Glucose Level 90 MG/DL (74-106) Calcium Level 8.5 MG/DL (8.5-10.1) Total Bilirubin 0.3 MG/DL (0.2-1.0) Aspartate Amino Transf (AST/SGOT) 44 U/L (15-37) Alanine Aminotransferase (ALT/SGPT) 58 U/L (12-78) Alkaline Phosphatase 79 U/L (46-116) Troponin I 0.000 ng/mL (0.000-0.056) Total Protein 7.8 G/DL (6.4-8.2) Albumin 3.5 G/DL (3.4-5.0) Globulin 4.3 g/dL Albumin/Globulin Ratio 0.8 (1.0-2.7) Thyroid Stimulating Hormone (TSH) 0.239 uiU/mL (0.358-3.740) Salicylates Level 46.0 ug/mL (2.8-20) 40.0 ug/mL (2.8-20) Acetaminophen Level < 2 MCG/ML (10-30) Serum Alcohol < 3 mg/dL Arterial Blood pH 7.166 (7.350-7.450) Arterial Blood Partial Pressure CO2 60.3 mmHg (35.0-45.0) Arterial Blood Partial Pressure O2 148.6 mmHg (75.0-100.0) Arterial Blood HCO3 21.3 mmol/L (22.0-26.0) Arterial Blood Oxygen Saturation 98.3 % (95-100) Arterial Blood Base Excess -7.9 (-2-2) Luis Test Positive Triglycerides Level 47 MG/DL (30-150) Test 12/21/18 17:45 12/21/18 21:00 12/22/18 05:00 12/22/18 13:00 Arterial Blood pH 7.294 (7.350-7.450) 7.400 (7.350-7.450) Arterial Blood Partial Pressure CO2 43.8 mmHg (35.0-45.0) 31.1 mmHg (35.0-45.0) Arterial Blood Partial Pressure O2 96.3 mmHg (75.0-100.0) 105.1 mmHg (75.0-100.0) Arterial Blood HCO3 20.8 mmol/L (22.0-26.0) 19.1 mmol/L (22.0-26.0) Arterial Blood Oxygen Saturation 96.8 % (95-100) 97.6 % (95-100) Arterial Blood Base Excess -5.6 (-2-2) -4.6 (-2-2) Luis Test Positive Positive White Blood Count 12.0 K/UL (4.8-10.8) Red Blood Count 3.64 M/UL (4.20-5.40) Hemoglobin 11.3 G/DL (12.0-16.0) Hematocrit 34.6 % (37.0-47.0) Mean Corpuscular Volume 95 FL (80-99) Mean Corpuscular Hemoglobin 31.1 PG (27.0-31.0) Mean Corpuscular Hemoglobin Concent 32.7 G/DL (32.0-36.0) Red Cell Distribution Width 14.4 % (11.6-14.8) Platelet Count 263 K/UL (150-450) Mean Platelet Volume 4.9 FL (6.5-10.1) Neutrophils (%) (Auto) 77.0 % (45.0-75.0) Lymphocytes (%) (Auto) 20.2 % (20.0-45.0) Monocytes (%) (Auto) 2.3 % (1.0-10.0) Eosinophils (%) (Auto) 0.0 % (0.0-3.0) Basophils (%) (Auto) 0.5 % (0.0-2.0) Sodium Level 144 MMOL/L (136-145) Potassium Level 3.2 MMOL/L (3.5-5.1) Chloride Level 108 MMOL/L (98-107) Carbon Dioxide Level 25 MMOL/L (21-32) Anion Gap 11 mmol/L (5-15) Blood Urea Nitrogen 9 mg/dL (7-18) Creatinine 1.0 MG/DL (0.55-1.30) Estimat Glomerular Filtration Rate > 60 mL/min (>60) Glucose Level 124 MG/DL (74-106) Calcium Level 8.1 MG/DL (8.5-10.1) Urine Color Yellow Urine Appearance Clear Urine pH 6 (4.5-8.0) Urine Specific [place] 1.010 (1.005-1.035) Urine Protein 3+ (NEGATIVE) Urine Glucose (UA) Negative (NEGATIVE) Urine Ketones 1+ (NEGATIVE) Urine Blood 5+ (NEGATIVE) Urine Nitrite Negative (NEGATIVE) Urine Bilirubin Negative (NEGATIVE) Urine Urobilinogen Normal MG/DL (0.0-1.0) Urine Leukocyte Esterase 1+ (NEGATIVE) Urine RBC 60-80 /HPF (0 - 2) Urine WBC 2-4 /HPF (0 - 2) Urine Squamous Epithelial Cells None /LPF (NONE/OCC) Urine Bacteria Occasional /HPF (NONE) Test 12/23/18 05:00 12/23/18 09:43 White Blood Count 14.9 K/UL (4.8-10.8) Red Blood Count 3.84 M/UL (4.20-5.40) Hemoglobin 12.0 G/DL (12.0-16.0) Hematocrit 36.2 % (37.0-47.0) Mean Corpuscular Volume 94 FL (80-99) Mean Corpuscular Hemoglobin 31.2 PG (27.0-31.0) Mean Corpuscular Hemoglobin Concent 33.1 G/DL (32.0-36.0) Red Cell Distribution Width 14.2 % (11.6-14.8) Platelet Count 276 K/UL (150-450) Mean Platelet Volume 4.8 FL (6.5-10.1) Neutrophils (%) (Auto) 73.6 % (45.0-75.0) Lymphocytes (%) (Auto) 15.2 % (20.0-45.0) Monocytes (%) (Auto) 10.6 % (1.0-10.0) Eosinophils (%) (Auto) 0.0 % (0.0-3.0) Basophils (%) (Auto) 0.6 % (0.0-2.0) Reticulocyte Count 3.5 % (0.5-2.0) Prothrombin Time 11.1 SEC (9.30-11.50) Prothromb Time International Ratio 1.0 (0.9-1.1) Activated Partial Thromboplast Time 25 SEC (23-33) Sodium Level 140 MMOL/L (136-145) Potassium Level 2.6 MMOL/L (3.5-5.1) Chloride Level 104 MMOL/L (98-107) Carbon Dioxide Level 29 MMOL/L (21-32) Anion Gap 6 mmol/L (5-15) Blood Urea Nitrogen 10 mg/dL (7-18) Creatinine 1.0 MG/DL (0.55-1.30) Estimat Glomerular Filtration Rate > 60 mL/min (>60) Glucose Level 126 MG/DL (74-106) Hemoglobin A1c 6.0 % (4.3-6.0) Lactic Acid Level 1.80 mmol/L (0.4-2.0) Uric Acid 1.0 MG/DL (2.6-7.2) Calcium Level 8.3 MG/DL (8.5-10.1) Phosphorus Level 1.3 MG/DL (2.5-4.9) Magnesium Level 2.2 MG/DL (1.8-2.4) Iron Level 39 ug/dL (50-175) Total Iron Binding Capacity 278 ug/dL (250-450) Percent Iron Saturation 14 % (15-50) Unsaturated Iron Binding 239 ug/dL (112-346) Ferritin 35 NG/ML (8-388) Total Bilirubin 0.2 MG/DL (0.2-1.0) Gamma Glutamyl Transpeptidase 28 U/L (5-85) Aspartate Amino Transf (AST/SGOT) 180 U/L (15-37) Alanine Aminotransferase (ALT/SGPT) 63 U/L (12-78) Alkaline Phosphatase 73 U/L (46-116) Ammonia 47 umol/L (11-32) Total Creatine Kinase 7141 U/L (26-308) C-Reactive Protein, Quantitative 0.9 mg/dL (0.00-0.90) Pro-B-Type Natriuretic Peptide 76 pg/mL (0-125) Total Protein 6.8 G/DL (6.4-8.2) Albumin 3.2 G/DL (3.4-5.0) Globulin 3.6 g/dL Albumin/Globulin Ratio 0.9 (1.0-2.7) Triglycerides Level 51 MG/DL (30-150) Cholesterol Level 221 MG/DL (< 200) LDL Cholesterol 161 mg/dL (<100) HDL Cholesterol 39 MG/DL (40-60) Cholesterol/HDL Ratio 5.7 (3.3-4.4) Lipase 831 U/L (73-393) Vitamin B12 Level 592 PG/ML (193-986) Folate 10.9 NG/ML (8.6-58.9) Thyroid Stimulating Hormone (TSH) 0.237 uiU/mL (0.358-3.740) Free Thyroxine 0.74 NG/DL (0.76-1.46) Salicylates Level 11.6 ug/mL (2.8-20) Arterial Blood pH 7.486 (7.350-7.450) Arterial Blood Partial Pressure CO2 44.5 mmHg (35.0-45.0) Arterial Blood Partial Pressure O2 59.0 mmHg (75.0-100.0) Arterial Blood HCO3 32.8 mmol/L (22.0-26.0) Arterial Blood Oxygen Saturation 91.5 % (95-100) Arterial Blood Base Excess 8.4 (-2-2) Luis Test Positive Micro Microbiology Date/Time Source Procedure Growth Status 12/22/18 13:00 Indwelling Cath Urine Culture - Preliminary NO GROWTH Resulted Height (Feet): 5 Height (Inches): 9.00 Weight (Pounds): 307 Objective Physical Exam General Appearance: well appearing, nad, obese Head: normocephalic ++ ogt Resp: normal breath sounds ++ vent Cardiovascular: normal rate Gastrointestinal: normal inspection, non tender, soft, normal bowel sounds, non -distended Msk: normal inspection, back normal Skin: normal inspection, normal color, no rash, warm/dry, palpation normal, well hydrated Lymphatic: normal inspection, no adenopathy Wade Bonds MD Dec 23, 2018 11:11
--- NOTE | 2018-12-23 11:30 | NUR ---
RESPIRATORY NOTE: Per Dr. Monsalve, cuff leak test done. Pt on vent settings AC 24 550 40% PEEP +5. Deflated cuff, Pt VT 550. No air leak heard. Cuff inflated. CLARENCE khan.
--- NOTE | 2018-12-23 11:57 | NUR ---
NURSE NOTES: INFORMED BR SHANI THAT PATIENT FAILED THE CUFF LEAK TEST AND IS OK TO RESUME FEEDING. TOLERATING SAME VENT SETTINGS. WILL CONTINUE TO MONITOR.
--- NOTE | 2018-12-23 14:36 | NUR ---
NURSE NOTES: PATIENT NOTED TO BE RESPONSIVE AND ABLE TO NOD FOR YES OR NO QUESTIONS. BUT STILL ON RESTRAINTS DUE TO PULLING OBJECTS. NO SIGNS OF DISTRESS OF THE MOMENT. WILL CONTINUE TO MONITOR.
--- NOTE | 2018-12-23 16:30 | NUR ---
NURSE NOTES: SEN BY DR DUBOIS. NNO. STILL ON RESTRAINTS. NO SIGNS OF DISTRESS OF THE MOMENT. WILL CONTINUE TO MONITOR.
[2018-12-23] MEDS: cefTRIAXone 1 GM in D5W 55 ML IVPB SCH (17:12)
--- NOTE | 2018-12-23 18:30 | NUR ---
NURSE NOTES: PATIENT KEPT CLEAN AND DRY. NO SIGNS OF DISTRESS. WILL CONTINUE TO MONITOR.
--- NOTE | 2018-12-23 19:37 | NUR ---
HAND-OFF: Report given to Felicitas Webster RN.
--- NOTE | 2018-12-23 19:38 | NUR ---
NURSE NOTES: Endorsement received from CLARENCE Farmer. Patient opens eyes spontaneously, localizes pain. Orally intubated with ET 7.0, 21 lipline. AC 24, 550, PEEP 5, 40%. With OGT patent and intact. Placement rechecked per auscultation. Receiving Glucerna 1.2 40ml/hr. No residual. With right wrist g 20 heplock, left AC g20. Mon catheter F18 draining to urimeter. Head of bed elevated. Bed locked and in low position. Bed alarm on. With bilateral soft wrists restraints for attempting to pull out tubes.
--- NOTE | 2018-12-23 19:38 | NUR ---
NURSE NOTES: Endorseligiotn
--- NOTE | 2018-12-23 19:50 | NUR ---
RESPIRATORY NOTE: Received pt on AC/VC RR 24 VT 550 FIO2 40% peep +5. Intubated with size 7 ett at 20 at the lip secured by anchor fast. Small to moderate amount of yellow, thick secretions and will sxn prn. Ambu bag near bed side. Vent is plugged into red outlet. Will continue to monitor pt.
--- NOTE | 2018-12-23 21:00 | NUR ---
NURSE NOTES: Patient afebrile. Appears calm and comfortable.
--- NOTE | 2018-12-23 21:07 | General Progress Note ---
Assessment/Plan Problem List: (1) Opioid dependence ICD Codes: F11.20 - Opioid dependence, uncomplicated SNOMED: 84301205 (2) Altered level of consciousness ICD Codes: R40.4 - Transient alteration of awareness SNOMED: 9981295 (3) Back pain ICD Codes: M54.9 - Dorsalgia, unspecified SNOMED: 800283438 (4) Opiate dependence ICD Codes: F11.20 - Opioid dependence, uncomplicated SNOMED: 64027695 (5) Depression ICD Codes: F32.9 - Major depressive disorder, single episode, unspecified SNOMED: 35486564 (6) Peripheral edema ICD Codes: R60.9 - Edema, unspecified SNOMED: 447586514 (7) Leg pain ICD Codes: M79.606 - Pain in leg, unspecified SNOMED: 38213291 (8) Headache ICD Codes: R51 - Headache SNOMED: 36103934 (9) COPD exacerbation ICD Codes: J44.1 - Chronic obstructive pulmonary disease with (acute) exacerbation SNOMED: 668910425 (10) Psychosis ICD Codes: F29 - Unsp psychosis not due to a substance or known physiol cond SNOMED: 16702718 (11) Respiratory failure ICD Codes: J96.90 - Respiratory failure, unspecified, unspecified whether with hypoxia or hypercapnia SNOMED: 489945532 (12) Salicylate overdose ICD Codes: T39.091A - Poisoning by salicylates, accidental (unintentional), initial encounter SNOMED: 600351454, 5054940 (13) Asthma ICD Codes: J45.909 - Unspecified asthma, uncomplicated SNOMED: 351971362, 4198889 (14) Anemia ICD Codes: D64.9 - Anemia, unspecified SNOMED: 666148793 Status: progressing, unchanged Assessment/Plan: respiratory failure intubated afebrile obesity alisilate toxcicity s/p o/d? trying to wean off . no wheezing Subjective ROS Limited/Unobtainable: Yes Allergies: Coded Allergies: No Known Allergies (Unverified , 11/07/13) Objective Last 24 Hour Vital Signs Date Time Temp Pulse Resp B/P (MAP) Pulse Ox O2 Delivery O2 Flow Rate FiO2 12/23/18 21:00 122 30 40 12/23/18 19:56 98 24 99 Mechanical Ventilator 40 12/23/18 19:50 96 44 97 Mechanical Ventilator 40 12/23/18 19:49 96 24 40 12/23/18 19:00 95 24 126/78 (94) 99 12/23/18 18:00 101 24 121/71 (88) 98 12/23/18 17:08 115 28 40 12/23/18 17:00 120 28 140/82 (101) 100 12/23/18 16:00 40 12/23/18 16:00 109 12/23/18 16:00 Mechanical Ventilator 12/23/18 16:00 97 24 126/75 (92) 95 12/23/18 15:32 124 22 99 Mechanical Ventilator 40 12/23/18 15:17 118 30 40 12/23/18 15:16 118 30 100 Mechanical Ventilator 40 12/23/18 15:00 98 24 123/73 (90) 12/23/18 14:00 107 24 118/68 (85) 100 12/23/18 13:00 114 23 130/86 (101) 96 12/23/18 12:56 116 24 40 12/23/18 12:00 40 12/23/18 12:00 107 12/23/18 12:00 Mechanical Ventilator 12/23/18 12:00 99.0 114 24 140/80 (100) 93 12/23/18 11:18 112 22 99 Mechanical Ventilator 40 12/23/18 11:08 112 24 97 Mechanical Ventilator 40 12/23/18 11:00 105 24 126/77 (93) 92 12/23/18 10:30 126 26 40 12/23/18 10:30 40 12/23/18 10:00 146 26 163/96 (118) 91 12/23/18 09:15 109 19 150/102 (118) 95 12/23/18 09:00 113 19 150/102 (118) 95 12/23/18 08:45 125 20 150/102 (118) 95 12/23/18 08:30 125 25 150/102 (118) 88 12/23/18 08:30 114 19 40 12/23/18 08:25 100 12/23/18 08:25 104 16 40 12/23/18 08:15 108 24 134/86 (102) 95 12/23/18 08:15 24 Mechanical Ventilator 40 12/23/18 08:00 Mechanical Ventilator 12/23/18 08:00 99.0 97 24 134/86 (102) 94 12/23/18 08:00 107 12/23/18 08:00 40 12/23/18 08:00 24 Mechanical Ventilator 40 12/23/18 07:30 99 24 150/80 (103) 94 12/23/18 07:22 95 24 97 Mechanical Ventilator 40 12/23/18 07:11 99 24 40 12/23/18 07:07 118 26 99 Mechanical Ventilator 40 12/23/18 07:00 24 Mechanical Ventilator 40 12/23/18 07:00 90 24 150/80 (103) 98 12/23/18 06:30 95 24 128/65 (86) 98 12/23/18 06:00 24 Mechanical Ventilator 40 12/23/18 06:00 93 24 120/74 (89) 98 12/23/18 05:30 101 24 117/77 (90) 98 12/23/18 05:00 114 24 132/74 (93) 98 12/23/18 05:00 24 Mechanical Ventilator 40 12/23/18 05:00 24 Mechanical Ventilator 40 12/23/18 04:58 116 24 60 12/23/18 04:30 95 24 121/66 (84) 98 12/23/18 04:20 98.9 12/23/18 04:00 103 12/23/18 04:00 24 Mechanical Ventilator 40 12/23/18 04:00 40 12/23/18 04:00 Mechanical Ventilator 12/23/18 04:00 99.3 103 24 133/70 (91) 98 12/23/18 03:49 25 Mechanical Ventilator 40 12/23/18 03:38 113 24 93 Mechanical Ventilator 60 12/23/18 03:30 106 24 125/78 (94) 98 12/23/18 03:25 106 24 97 Mechanical Ventilator 60 12/23/18 03:17 114 24 60 12/23/18 03:00 24 Mechanical Ventilator 40 12/23/18 03:00 121 24 129/70 (89) 96 12/23/18 02:30 100 24 117/66 (83) 95 12/23/18 02:00 109 24 130/60 (83) 96 12/23/18 02:00 24 Mechanical Ventilator 40 12/23/18 01:30 94 24 127/68 (87) 96 12/23/18 01:22 124 24 60 8/22/19 01:00 24 Mechanical Ventilator 40 12/23/18 01:00 91 24 108/59 (75) 96 12/23/18 00:30 96 24 113/69 (84) 95 12/23/18 00:00 Mechanical Ventilator 12/23/18 00:00 98.9 95 24 112/60 (77) 96 12/23/18 00:00 24 Mechanical Ventilator 40 12/23/18 00:00 40 12/23/18 00:00 95 12/22/18 23:30 96 24 113/57 (75) 96 12/22/18 23:00 92 24 112/58 (76) 96 12/22/18 23:00 24 Mechanical Ventilator 40 12/22/18 22:58 92 24 96 Mechanical Ventilator 40 12/22/18 22:48 102 24 93 Mechanical Ventilator 12/22/18 22:43 92 24 40 12/22/18 22:30 86 24 110/57 (74) 97 12/22/18 22:00 85 24 123/75 (91) 96 12/22/18 22:00 24 Mechanical Ventilator 40 12/22/18 21:30 88 24 105/58 (74) 97 12/22/18 21:08 24 Mechanical Ventilator 40 Intake and Output 12/22/18 12/23/18 19:00 07:00 Intake Total 1681 ml 1485 ml Output Total 480 ml 450 ml Balance 1201 ml 1035 ml Intake Oral 0 ml Free Water 50 ml 160 ml IV Total 1591 ml 965 ml Tube Feeding 40 ml 360 ml Output Urine Total 480 ml 450 ml Laboratory Tests 12/23/18 05:00: White Blood Count 14.9H, Red Blood Count 3.84L, Hemoglobin 12.0, Hematocrit 36.2L, Mean Corpuscular Volume 94, Mean Corpuscular Hemoglobin 31.2H, Mean Corpuscular Hemoglobin Concent 33.1, Red Cell Distribution Width 14.2, Platelet Count 276, Mean Platelet Volume 4.8L, Neutrophils (%) (Auto) 73.6, Lymphocytes ( %) (Auto) 15.2L, Monocytes (%) (Auto) 10.6H, Eosinophils (%) (Auto) 0.0, Basophils (%) (Auto) 0.6, Reticulocyte Count 3.5H, Prothrombin Time 11.1, Prothromb Time International Ratio 1.0, Activated Partial Thromboplast Time 25, Sodium Level 140, Potassium Level 2.6*L, Chloride Level 104, Carbon Dioxide Level 29, Anion Gap 6, Blood Urea Nitrogen 10, Creatinine 1.0, Estimat Glomerular Filtration Rate > 60, Glucose Level 126H, Hemoglobin A1c 6.0, Lactic Acid Level 1.80, Uric Acid 1.0L, Calcium Level 8.3L, Phosphorus Level 1.3L, Magnesium Level 2.2, Iron Level 39L, Total Iron Binding Capacity 278, Percent Iron Saturation 14L, Unsaturated Iron Binding 239, Ferritin 35, Total Bilirubin 0.2, Gamma Glutamyl Transpeptidase 28, Aspartate Amino Transf (AST/SGOT) 180H, Alanine Aminotransferase (ALT/SGPT) 63, Alkaline Phosphatase 73, Ammonia 47H, Total Creatine Kinase 7141H, C-Reactive Protein, Quantitative 0.9, Pro-B-Type Natriuretic Peptide 76, Total Protein 6.8, Albumin 3.2L, Globulin 3.6, Albumin/ Globulin Ratio 0.9L, Triglycerides Level 51, Cholesterol Level 221H, LDL Cholesterol 161H, HDL Cholesterol 39L, Cholesterol/HDL Ratio 5.7H, Lipase 831H, Vitamin B12 Level 592, Folate 10.9, Thyroid Stimulating Hormone (TSH) 0.237L, Free Thyroxine 0.74L, Salicylates Level 11.6 12/23/18 09:43: Arterial Blood pH 7.486H, Arterial Blood Partial Pressure CO2 44.5, Arterial Blood Partial Pressure O2 59.0L, Arterial Blood HCO3 32.8H, Arterial Blood Oxygen Saturation 91.5L, Arterial Blood Base Excess 8.4H, Luis Test Positive 12/23/18 18:00: Arterial Blood pH 7.546H, Arterial Blood Partial Pressure CO2 34.1L, Arterial Blood Partial Pressure O2 99.0, Arterial Blood HCO3 28.9H, Arterial Blood Oxygen Saturation 97.9, Arterial Blood Base Excess 6.5H, Luis Test Positive Height (Feet): 5 Height (Inches): 9.00 Weight (Pounds): 307 General Appearance: lethargic, confused Cardiovascular: normal rate Jasmine Joe MD Dec 23, 2018 21:07
--- NOTE | 2018-12-23 22:50 | Pulmonolgy Critical Care Note ---
Critical Care - Asmt/Plan Assessment/Plan: Pulmonary CCM Progress Note HPI Patient is a 58-year-old woman with apparent history of Obstructive Airways Disease, Schizophrenia, Obesity, presented with shortness of breath, increased anxiety. Per ER notes history limited by mental status, being a poor historian. Patient noted to be extremely short of breath requiring intubation in the ED. On mechainical ventilation in the iCU Noted to have elevated ASA level on admission, IVF no DC Tolerating weaning - failed cuff leak test, steroids increased Physical Exam Vital Signs Noted General Appearance: normal inspection, mildly sedated on the ventilator Head: NCAT ENT: Moist mm, ETT, OGT, JVP not visible Neck: normal inspection, full range of motion, supple, no bony tend Respiratory: normal inspection, no respiratory distress, no retraction, mild wheezing, reduced basal BS Cardiovascular: regular rate, rhythm, Normal HS1, HS2 Gastrointestinal: normal inspection, normal bowel sounds, non tender, soft, no guarding, no hernia Genitourinary: no CVA tenderness Musculoskeletal: normal inspection, moderate edema Neurologic: no focal signs noted, follows commands Impression: Respiratory failure - Hypercapneic and Hypoxic Elevated Salicylate level Pneumonia Possible Congestive Heart Failure Salicylate overdose Schizophrenia/Psychosis Asthma Obesity Plan: ACV Vt 550 P5 Adjust FIO2 sats 90-94%, wan as tolerated IV Antibiotics IV Solumedrol HHN Wean as tolerated ISS BOLT MAN med PRN Sedation BLE dupplex PPX IV alkalinized fluids - reduce OGT feeding advance Labs Noted Test 12/21/18 10:45 White Blood Count 8.8 K/UL (4.8-10.8) Red Blood Count 4.10 M/UL (4.20-5.40) Hemoglobin 12.7 G/DL (12.0-16.0) Hematocrit 39.3 % (37.0-47.0) Mean Corpuscular Volume 96 FL (80-99) Mean Corpuscular Hemoglobin 30.9 PG (27.0-31.0) Mean Corpuscular Hemoglobin Concent 32.2 G/DL (32.0-36.0) Red Cell Distribution Width 14.7 % (11.6-14.8) Platelet Count 292 K/UL (150-450) Mean Platelet Volume 5.0 FL (6.5-10.1) Neutrophils (%) (Auto) 50.2 % (45.0-75.0) Lymphocytes (%) (Auto) 41.4 % (20.0-45.0) Monocytes (%) (Auto) 6.2 % (1.0-10.0) Eosinophils (%) (Auto) 0.2 % (0.0-3.0) Basophils (%) (Auto) 2.0 % (0.0-2.0) Sodium Level 142 MMOL/L (136-145) Potassium Level 4.0 MMOL/L (3.5-5.1) Chloride Level 110 MMOL/L (98-107) Carbon Dioxide Level 20 MMOL/L (21-32) Anion Gap 12 mmol/L (5-15) Blood Urea Nitrogen 11 mg/dL (7-18) Creatinine 1.0 MG/DL (0.55-1.30) Estimat Glomerular Filtration Rate > 60 mL/min (>60) Glucose Level 90 MG/DL (74-106) Calcium Level 8.5 MG/DL (8.5-10.1) Total Bilirubin 0.3 MG/DL (0.2-1.0) Aspartate Amino Transf (AST/SGOT) 44 U/L (15-37) Alanine Aminotransferase (ALT/SGPT) 58 U/L (12-78) Alkaline Phosphatase 79 U/L (46-116) Troponin I 0.000 ng/mL (0.000-0.056) Total Protein 7.8 G/DL (6.4-8.2) Albumin 3.5 G/DL (3.4-5.0) Globulin 4.3 g/dL Albumin/Globulin Ratio 0.8 (1.0-2.7) Thyroid Stimulating Hormone (TSH) 0.239 uiU/mL (0.358-3.740) Salicylates Level 46.0 ug/mL (2.8-20) Acetaminophen Level < 2 MCG/ML (10-30) Serum Alcohol < 3 mg/dL CXR: ETT appropriate, RLL infiltrate, vascular congestion Critical Care - Objective Last 24 Hour Vital Signs Date Time Temp Pulse Resp B/P (MAP) Pulse Ox O2 Delivery O2 Flow Rate FiO2 12/23/18 22:47 94 24 97 Mechanical Ventilator 40 12/23/18 22:36 86 24 96 Mechanical Ventilator 40 12/23/18 22:35 92 24 40 12/23/18 21:00 122 30 40 12/23/18 19:56 98 24 99 Mechanical Ventilator 40 12/23/18 19:50 96 23 97 Mechanical Ventilator 40 12/23/18 19:49 96 24 40 12/23/18 19:00 95 24 126/78 (94) 99 12/23/18 18:00 101 24 121/71 (88) 98 12/23/18 17:08 115 28 40 12/23/18 17:00 120 28 140/82 (101) 100 12/23/18 16:00 40 12/23/18 16:00 109 12/23/18 16:00 Mechanical Ventilator 12/23/18 16:00 97 24 126/75 (92) 95 12/23/18 15:32 124 22 99 Mechanical Ventilator 40 12/23/18 15:17 118 30 40 12/23/18 15:16 118 30 100 Mechanical Ventilator 40 12/23/18 15:00 98 24 123/73 (90) 12/23/18 14:00 107 24 118/68 (85) 100 12/23/18 13:00 114 23 130/86 (101) 96 12/23/18 12:56 116 24 40 12/23/18 12:00 40 12/23/18 12:00 107 12/23/18 12:00 Mechanical Ventilator 12/23/18 12:00 99.0 114 24 140/80 (100) 93 12/23/18 11:18 112 22 99 Mechanical Ventilator 40 12/23/18 11:08 112 24 97 Mechanical Ventilator 40 12/23/18 11:00 105 24 126/77 (93) 92 12/23/18 10:30 126 26 40 12/23/18 10:30 40 12/23/18 10:00 146 26 163/96 (118) 91 12/23/18 09:15 109 19 150/102 (118) 95 12/23/18 09:00 113 19 150/102 (118) 95 12/23/18 08:45 125 20 150/102 (118) 95 12/23/18 08:30 125 25 150/102 (118) 88 12/23/18 08:30 114 19 40 12/23/18 08:25 100 12/23/18 08:25 104 16 40 12/23/18 08:15 108 24 134/86 (102) 95 12/23/18 08:15 24 Mechanical Ventilator 40 12/23/18 08:00 Mechanical Ventilator 12/23/18 08:00 99.0 97 24 134/86 (102) 94 12/23/18 08:00 107 12/23/18 08:00 40 12/23/18 08:00 24 Mechanical Ventilator 40 12/23/18 07:30 99 24 150/80 (103) 94 12/23/18 07:22 95 24 97 Mechanical Ventilator 40 12/23/18 07:11 99 24 40 12/23/18 07:07 118 26 99 Mechanical Ventilator 40 12/23/18 07:00 24 Mechanical Ventilator 40 12/23/18 07:00 90 24 150/80 (103) 98 12/23/18 06:30 95 24 128/65 (86) 98 12/23/18 06:00 24 Mechanical Ventilator 40 12/23/18 06:00 93 24 120/74 (89) 98 12/23/18 05:30 101 24 117/77 (90) 98 12/23/18 05:00 114 24 132/74 (93) 98 12/23/18 05:00 24 Mechanical Ventilator 40 12/23/18 05:00 24 Mechanical Ventilator 40 12/23/18 04:58 116 24 60 12/23/18 04:30 95 24 121/66 (84) 98 12/23/18 04:20 98.9 12/23/18 04:00 103 12/23/18 04:00 24 Mechanical Ventilator 40 12/23/18 04:00 40 12/23/18 04:00 Mechanical Ventilator 12/23/18 04:00 99.3 103 24 133/70 (91) 98 12/23/18 03:49 25 Mechanical Ventilator 40 12/23/18 03:38 113 24 93 Mechanical Ventilator 60 12/23/18 03:30 106 24 125/78 (94) 98 12/23/18 03:25 106 24 97 Mechanical Ventilator 60 12/23/18 03:17 114 24 60 12/23/18 03:00 24 Mechanical Ventilator 40 12/23/18 03:00 121 24 129/70 (89) 96 12/23/18 02:30 100 24 117/66 (83) 95 12/23/18 02:00 109 24 130/60 (83) 96 12/23/18 02:00 24 Mechanical Ventilator 40 12/23/18 01:30 94 24 127/68 (87) 96 12/23/18 01:22 124 24 60 12/23/18 01:00 24 Mechanical Ventilator 40 12/23/18 01:00 91 24 108/59 (75) 96 12/23/18 00:30 96 24 113/69 (84) 95 12/23/18 00:00 Mechanical Ventilator 12/23/18 00:00 98.9 95 24 112/60 (77) 96 12/23/18 00:00 24 Mechanical Ventilator 40 12/23/18 00:00 40 12/23/18 00:00 95 12/22/18 23:30 96 24 113/57 (75) 96 12/22/18 23:00 92 24 112/58 (76) 96 12/22/18 23:00 24 Mechanical Ventilator 40 12/22/18 22:58 92 24 96 Mechanical Ventilator 40 Micro: Microbiology Date/Time Source Procedure Growth Status 12/22/18 13:00 Indwelling Cath Urine Culture - Preliminary NO GROWTH Resulted 12/21/18 13:40 Rectum Received Accucheck: 161 Critical Care - Subjective ROS Limited/Unobtainable: No Condition: improving FI02: 40 Vent Support Breath Rate: 24 Vent Support Mode: AC Vent Tidal Volume: 550 Sputum Amount: Small PEEP: 5.0 PIP: 38 Tube Feeding Amount: 40 I&O: Intake and Output 12/22/18 12/23/18 19:00 07:00 Intake Total 1681 ml 1485 ml Output Total 480 ml 450 ml Balance 1201 ml 1035 ml Intake Oral 0 ml Free Water 50 ml 160 ml IV Total 1591 ml 965 ml Tube Feeding 40 ml 360 ml Output Urine Total 480 ml 450 ml ET-Tube: 7.0 ET Position: 20 Kevan Monsalve MD Dec 23, 2018 22:50
--- NOTE | 2018-12-23 23:00 | NUR ---
NURSE NOTES: Patient asleep. Arousable per light touch. Repositioned as scheduled.
--- NOTE | 2018-12-23 23:59 | Cardiology Progress Note ---
Assessment/Plan Assessment/Plan 1. Sinus tachycardia, most likely due to hypoxemia, CXR reveals normal right lung aeration. there is no need for AV carissa agents. 2. History of psychosis. 3. History of chronic obstructive pulmonary disease. 4. History of salicylate overdose. 5. Morbid obesity. 6. Hyperthyroidism 7. Dyslipidemia Subjective Subjective Sinus rhythm at rate of 92. Intubated at FiO2 of 40%. Objective Last 24 Hour Vital Signs Date Time Temp Pulse Resp B/P (MAP) Pulse Ox O2 Delivery O2 Flow Rate FiO2 12/23/18 23:00 92 24 120/67 (84) 93 12/23/18 22:47 94 24 97 Mechanical Ventilator 40 12/23/18 22:36 86 24 96 Mechanical Ventilator 40 12/23/18 22:35 92 24 40 12/23/18 22:30 92 23 116/70 (85) 93 12/23/18 22:00 96 24 125/72 (89) 96 12/23/18 21:00 122 30 40 12/23/18 21:00 106 24 128/77 (94) 12/23/18 20:00 40 12/23/18 20:00 99.4 96 24 128/82 (97) 96 12/23/18 20:00 Mechanical Ventilator 12/23/18 19:56 98 24 99 Mechanical Ventilator 40 12/23/18 19:50 96 23 97 Mechanical Ventilator 40 12/23/18 19:49 96 24 40 12/23/18 19:00 95 24 126/78 (94) 99 12/23/18 18:00 101 24 121/71 (88) 98 12/23/18 17:08 115 28 40 12/23/18 17:00 120 28 140/82 (101) 100 12/23/18 16:00 40 12/23/18 16:00 109 12/23/18 16:00 Mechanical Ventilator 12/23/18 16:00 97 24 126/75 (92) 95 12/23/18 15:32 124 22 99 Mechanical Ventilator 40 12/23/18 15:17 118 30 40 12/23/18 15:16 118 30 100 Mechanical Ventilator 40 12/23/18 15:00 98 24 123/73 (90) 12/23/18 14:00 107 24 118/68 (85) 100 12/23/18 13:00 114 23 130/86 (101) 96 12/23/18 12:56 116 24 40 12/23/18 12:00 40 12/23/18 12:00 107 12/23/18 12:00 Mechanical Ventilator 12/23/18 12:00 99.0 114 24 140/80 (100) 93 12/23/18 11:18 112 22 99 Mechanical Ventilator 40 12/23/18 11:08 112 24 97 Mechanical Ventilator 40 12/23/18 11:00 105 24 126/77 (93) 92 12/23/18 10:30 126 26 40 12/23/18 10:30 40 12/23/18 10:00 146 26 163/96 (118) 91 12/23/18 09:15 109 19 150/102 (118) 95 12/23/18 09:00 113 19 150/102 (118) 95 12/23/18 08:45 125 20 150/102 (118) 95 12/23/18 08:30 125 25 150/102 (118) 88 12/23/18 08:30 114 19 40 12/23/18 08:25 100 12/23/18 08:25 104 16 40 12/23/18 08:15 108 24 134/86 (102) 95 12/23/18 08:15 24 Mechanical Ventilator 40 12/23/18 08:00 Mechanical Ventilator 12/23/18 08:00 99.0 97 24 134/86 (102) 94 12/23/18 08:00 107 12/23/18 08:00 40 12/23/18 08:00 24 Mechanical Ventilator 40 12/23/18 07:30 99 24 150/80 (103) 94 12/23/18 07:22 95 24 97 Mechanical Ventilator 40 12/23/18 07:11 99 24 40 12/23/18 07:07 118 26 99 Mechanical Ventilator 40 12/23/18 07:00 24 Mechanical Ventilator 40 12/23/18 07:00 90 24 150/80 (103) 98 12/23/18 06:30 95 24 128/65 (86) 98 12/23/18 06:00 24 Mechanical Ventilator 40 12/23/18 06:00 93 24 120/74 (89) 98 12/23/18 05:30 101 24 117/77 (90) 98 12/23/18 05:00 114 24 132/74 (93) 98 12/23/18 05:00 24 Mechanical Ventilator 40 12/23/18 05:00 24 Mechanical Ventilator 40 12/23/18 04:58 116 24 60 12/23/18 04:30 95 24 121/66 (84) 98 12/23/18 04:20 98.9 12/23/18 04:00 103 12/23/18 04:00 24 Mechanical Ventilator 40 12/23/18 04:00 40 12/23/18 04:00 Mechanical Ventilator 12/23/18 04:00 99.3 103 24 133/70 (91) 98 12/23/18 03:49 25 Mechanical Ventilator 40 12/23/18 03:38 113 24 93 Mechanical Ventilator 60 12/23/18 03:30 106 24 125/78 (94) 98 12/23/18 03:25 106 24 97 Mechanical Ventilator 60 12/23/18 03:17 114 24 60 12/23/18 03:00 24 Mechanical Ventilator 40 12/23/18 03:00 121 24 129/70 (89) 96 12/23/18 02:30 100 24 117/66 (83) 95 12/23/18 02:00 109 24 130/60 (83) 96 12/23/18 02:00 24 Mechanical Ventilator 40 12/23/18 01:30 94 24 127/68 (87) 96 12/23/18 01:22 124 24 60 12/23/18 01:00 24 Mechanical Ventilator 40 12/23/18 01:00 91 24 108/59 (75) 96 12/23/18 00:30 96 24 113/69 (84) 95 12/23/18 00:00 Mechanical Ventilator 12/23/18 00:00 98.9 95 24 112/60 (77) 96 12/23/18 00:00 24 Mechanical Ventilator 40 12/23/18 00:00 40 12/23/18 00:00 95 Intake and Output 12/22/18 12/23/18 19:00 07:00 Intake Total 1681 ml 1485 ml Output Total 480 ml 450 ml Balance 1201 ml 1035 ml Intake Oral 0 ml Free Water 50 ml 160 ml IV Total 1591 ml 965 ml Tube Feeding 40 ml 360 ml Output Urine Total 480 ml 450 ml Laboratory Tests Test 12/23/18 05:00 12/23/18 09:43 12/23/18 18:00 White Blood Count 14.9 K/UL (4.8-10.8) H Red Blood Count 3.84 M/UL (4.20-5.40) L Hemoglobin 12.0 G/DL (12.0-16.0) Hematocrit 36.2 % (37.0-47.0) L Mean Corpuscular Volume 94 FL (80-99) Mean Corpuscular Hemoglobin 31.2 PG (27.0-31.0) H Mean Corpuscular Hemoglobin Concent 33.1 G/DL (32.0-36.0) Red Cell Distribution Width 14.2 % (11.6-14.8) Platelet Count 276 K/UL (150-450) Mean Platelet Volume 4.8 FL (6.5-10.1) L Neutrophils (%) (Auto) 73.6 % (45.0-75.0) Lymphocytes (%) (Auto) 15.2 % (20.0-45.0) L Monocytes (%) (Auto) 10.6 % (1.0-10.0) H Eosinophils (%) (Auto) 0.0 % (0.0-3.0) Basophils (%) (Auto) 0.6 % (0.0-2.0) Reticulocyte Count 3.5 % (0.5-2.0) H Prothrombin Time 11.1 SEC (9.30-11.50) Prothromb Time International Ratio 1.0 (0.9-1.1) Activated Partial Thromboplast Time 25 SEC (23-33) Sodium Level 140 MMOL/L (136-145) Potassium Level 2.6 MMOL/L (3.5-5.1) *L Chloride Level 104 MMOL/L (98-107) Carbon Dioxide Level 29 MMOL/L (21-32) Anion Gap 6 mmol/L (5-15) Blood Urea Nitrogen 10 mg/dL (7-18) Creatinine 1.0 MG/DL (0.55-1.30) Estimat Glomerular Filtration Rate > 60 mL/min (>60) Glucose Level 126 MG/DL (74-106) H Hemoglobin A1c 6.0 % (4.3-6.0) Lactic Acid Level 1.80 mmol/L (0.4-2.0) Uric Acid 1.0 MG/DL (2.6-7.2) L Calcium Level 8.3 MG/DL (8.5-10.1) L Phosphorus Level 1.3 MG/DL (2.5-4.9) L Magnesium Level 2.2 MG/DL (1.8-2.4) Iron Level 39 ug/dL (50-175) L Total Iron Binding Capacity 278 ug/dL (250-450) Percent Iron Saturation 14 % (15-50) L Unsaturated Iron Binding 239 ug/dL (112-346) Ferritin 35 NG/ML (8-388) Total Bilirubin 0.2 MG/DL (0.2-1.0) Gamma Glutamyl Transpeptidase 28 U/L (5-85) Aspartate Amino Transf (AST/SGOT) 180 U/L (15-37) H Alanine Aminotransferase (ALT/SGPT) 63 U/L (12-78) Alkaline Phosphatase 73 U/L (46-116) Ammonia 47 umol/L (11-32) H Total Creatine Kinase 7141 U/L (26-308) H C-Reactive Protein, Quantitative 0.9 mg/dL (0.00-0.90) Pro-B-Type Natriuretic Peptide 76 pg/mL (0-125) Total Protein 6.8 G/DL (6.4-8.2) Albumin 3.2 G/DL (3.4-5.0) L Globulin 3.6 g/dL Albumin/Globulin Ratio 0.9 (1.0-2.7) L Triglycerides Level 51 MG/DL (30-150) Cholesterol Level 221 MG/DL (< 200) H LDL Cholesterol 161 mg/dL (<100) H HDL Cholesterol 39 MG/DL (40-60) L Cholesterol/HDL Ratio 5.7 (3.3-4.4) H Lipase 831 U/L (73-393) H Vitamin B12 Level 592 PG/ML (193-986) Folate 10.9 NG/ML (8.6-58.9) Thyroid Stimulating Hormone (TSH) 0.237 uiU/mL (0.358-3.740) Free Thyroxine 0.74 NG/DL (0.76-1.46) L Salicylates Level 11.6 ug/mL (2.8-20) Arterial Blood pH 7.486 (7.350-7.450) 7.546 (7.350-7.450) Arterial Blood Partial Pressure CO2 44.5 mmHg (35.0-45.0) 34.1 mmHg (35.0-45.0) L Arterial Blood Partial Pressure O2 59.0 mmHg (75.0-100.0) L 99.0 mmHg (75.0-100.0) Arterial Blood HCO3 32.8 mmol/L (22.0-26.0) H 28.9 mmol/L (22.0-26.0) H Arterial Blood Oxygen Saturation 91.5 % (95-100) L 97.9 % (95-100) Arterial Blood Base Excess 8.4 (-2-2) H 6.5 (-2-2) H Luis Test Positive Positive Microbiology Date/Time Source Procedure Growth Status 12/22/18 13:00 Indwelling Cath Urine Culture - Preliminary NO GROWTH Resulted 12/21/18 13:40 Rectum Received Objective HEENT: Atraumatic and normocephalic. Anicteric. Pupils are equal, round, and reactive to light and accommodation. NECK: JVP cannot be assessed. No carotid bruit. CARDIOVASCULAR: Normal S1, S2. Regular rate and rhythm. No murmurs, gallops, or rubs. PMI is at fourth intercostal space in the midclavicular line. LUNGS: Diminished breath sounds in both lungs. ABDOMEN: Soft, obese. No hepatosplenomegaly. Positive bowel sounds. EXTREMITIES: No evidence of edema, clubbing, or cyanosis. Velasquez Staton MD Dec 23, 2018 23:59
[2018-12-24] VITALS (52 sets, daily range): BP systolic 90–164; BP diastolic 67–109
--- NOTE | 2018-12-24 01:00 | Progress Note ---
DATE: 12/23/2018 SUBJECTIVE: The patient is intubated and waxing and weaning. The patient is unable to be engaged. The patient is easily agitated, in restraints and has been taking off restraints a couple of times per nurse. The patient is admitting that this was a suicide attempt. The patient has been not responding well to the Ativan. MENTAL STATUS EXAMINATION: The patient is alert and oriented times to self and place. Unable to assess the patient for mini-mental status. PLAN: I will start the patient on Haldol. We will continue the restraints. I will continue to reassess . Laurie Canchola M.D. DR: KATHRYN JOB#: [id number] CC: JACQUIE
--- NOTE | 2018-12-24 01:00 | NUR ---
NURSE NOTES: Patient asleep. No shortness of breath. Tolerating feedings.
[2018-12-24] MEDS: Albuterol/Ipratropium 3ml neb HHN SCH ×6 (02:53→23:15)
--- NOTE | 2018-12-24 03:00 | NUR ---
NURSE NOTES: Patient asleep, arousable per name and touch. Able to communicate by nodding or shaking head. Vital signs stable.
--- NOTE | 2018-12-24 04:00 | NUR ---
NURSE NOTES: GT feeding witheld at this time as per order for weaning in the morning.
[2018-12-24 04:26] LABS: BASOPHILS % (AUTO) 1.1 % (0.0-2.0); HEMOGLOBIN 11.9 G/DL (12.0-16.0); LYMPHOCYTES % (AUTO) 13.3 % (20.0-45.0); MEAN CORPUSCULAR VOLUME 96 FL (80-99); MONOCYTES % (AUTO) 8.8 % (1.0-10.0); NEUTROPHILS % (AUTO) 76.8 % (45.0-75.0); PLATELET COUNT 258 K/UL (150-450); RED BLOOD COUNT 3.86 M/UL (4.20-5.40); RED CELL DISTRIBUTION WIDTH 14.8 % (11.6-14.8); WHITE BLOOD COUNT 16.8 K/UL (4.8-10.8)
--- NOTE | 2018-12-24 04:59 | NUR ---
NURSE NOTES: Bed bath, oral care, change of linens done. Patient tolerated the activity
[2018-12-24 05:18] LABS: ALANINE AMINOTRANSFERASE 80 U/L (12-78); ALBUMIN 3.1 G/DL (3.4-5.0); ALBUMIN/GLOBULIN RATIO 0.8 (1.0-2.7); ALKALINE PHOSPHATASE 73 U/L (46-116); ANION GAP 10 mmol/L (5-15); ASPARTATE AMINO TRANSFERASE 180 U/L (15-37); BILIRUBIN,TOTAL 0.3 MG/DL (0.2-1.0); BLOOD UREA NITROGEN 12 mg/dL (7-18); CALCIUM 8.6 MG/DL (8.5-10.1); CARBON DIOXIDE 27 MMOL/L (21-32); CHLORIDE 105 MMOL/L (98-107); CREATINE KINASE 7451 U/L (26-308); GAMMA GLUTAMYL TRANSPEPTIDASE 27 U/L (5-85); PHOSPHORUS 2.3 MG/DL (2.5-4.9); POTASSIUM 3.3 MMOL/L (3.5-5.1); SODIUM 142 MMOL/L (136-145)
[2018-12-24] MEDS: LORazepam Inj 2mg/ml 1ml IV PRN ×2 (05:33→15:19)
[2018-12-24] MEDS: Solu-MEDROL 125mg Inj IVP SCH ×4 (05:37→23:58)
[2018-12-24] MEDS: NovoLOG Insulin Flexpen SUBQ SCH ×4 (05:37→23:59)
--- NOTE | 2018-12-24 05:40 | NUR ---
NURSE NOTES: Insulin not given due to patient is on NPO for weaning trials today and has no IV fluid. Blood sugar 124mg/dl
--- NOTE | 2018-12-24 05:40 | NUR ---
NURSE NOTES: Patient awake, restless and agitated. Reoriented and odffered reassurance, still anxious. Restarted Fentanyl at 100mcg/hr and PRN ativan given.
--- NOTE | 2018-12-24 07:05 | NUR ---
HAND-OFF: Report given to Lee Ann LIMA.
--- NOTE | 2018-12-24 07:10 | NUR ---
NURSE NOTES: Report received from CLARENCE Molina. Patient opens eyes spontaneously, follows simple commands and able to respond to questions. Orally intubated with ET 7.0, 21cm @ the lip line. AC 24, 550, PEEP 5, 40%. With OGT patent and intact. Mon catheter patent and draining. Receiving Glucerna 1.2@ 40mL/hr, currently on hold due to weaning. Right wrist 20g, left AC 20g. Head of bed elevated. Bed locked and in lowest position. Bed alarm on. Bilateral soft wrist restraints to prevent self injury and extubation, noted and secure. VSS.
--- NOTE | 2018-12-24 07:30 | NUR ---
RESPIRATORY NOTE: Received pt on ordered vent settings. Pt airway is patent and secured. Suctioned pt prn. Vent alarms are on and audible. Vent is plugged into red outlet. Will monitor pt progress.
--- NOTE | 2018-12-24 09:00 | NUR ---
NURSE NOTES: Fentanyl put on hold, d/t sedation, for weaning attempt. Suction and Oral care done. Gown changed.
[2018-12-24] MEDS: Pantoprazole Inj IVP SCH ×2 (09:40→21:17)
[2018-12-24] MEDS ORDERED: Potassium Phosphate 30 MM in NS 275 ML IV ONE (10:00)
[2018-12-24] MEDS: Acetaminophen 650mg/20.3ml NG PRN (10:07)
--- NOTE | 2018-12-24 11:00 | NUR ---
NURSE NOTES: Pt failed weaning, immediately desat to 80's. Fentanyl resumed to 100mcg/hr. Tube feeding restarted @40mL/hr.
--- NOTE | 2018-12-24 11:06 | Infectious Diseases Prog Note ---
Assessment/Plan Assessment/Plan IMPRESSION: Sepsis or systemic inflammatory response syndrome, COPD, Hypercapnic respiratory failure, s Salicylate toxicity, Morbid obesity. Leukocytosis likely steroid related RECOMMENDATION: We will continue ceftriaxone. Sputum culture We will follow up the cultures. Subjective ROS Limited/Unobtainable: Yes Constitutional: Reports: fever, other - T [id number] Respiratory: Reports: other - lots of respiratory secretions Gastrointestinal/Abdominal: Reports: no symptoms Genitourinary: Reports: no symptoms Allergies: Coded Allergies: No Known Allergies (Unverified , 11/07/13) Objective Vital Signs Last 24 Hour Vital Signs Date Time Temp Pulse Resp B/P (MAP) Pulse Ox O2 Delivery O2 Flow Rate FiO2 12/24/18 10:30 119 22 90/69 (76) 97 12/24/18 10:15 89 24 138/73 (94) 93 12/24/18 10:00 95 23 136/84 (101) 95 12/24/18 09:45 86 24 133/87 (102) 91 12/24/18 09:30 92 24 130/76 (94) 96 12/24/18 09:15 89 24 137/71 (93) 96 12/24/18 09:00 90 24 139/76 (97) 94 12/24/18 08:51 90 24 40 12/24/18 08:51 87 12/24/18 08:45 95 24 129/84 (99) 93 12/24/18 08:30 102 21 151/89 (109) 92 12/24/18 08:15 109 24 155/77 (103) 95 12/24/18 08:00 Mechanical Ventilator 12/24/18 08:00 100.0 88 24 145/86 (105) 99 12/24/18 08:00 40 12/24/18 07:45 89 24 151/86 (107) 98 12/24/18 07:37 89 12/24/18 07:36 90 24 99 Mechanical Ventilator 40 12/24/18 07:30 99 9 161/96 (117) 12/24/18 07:30 24 95 12/24/18 07:29 94 24 100 Mechanical Ventilator 40 12/24/18 07:29 91 24 40 12/24/18 07:00 83 24 143/71 (95) 95 12/24/18 07:00 20 Mechanical Ventilator 40 12/24/18 06:45 92 24 143/72 (95) 94 12/24/18 06:30 89 24 138/76 (96) 93 12/24/18 06:00 94 24 123/108 (113) 97 12/24/18 06:00 20 Mechanical Ventilator 30 12/24/18 05:45 90 24 123/108 (113) 98 12/24/18 05:40 20 Mechanical Ventilator 30 12/24/18 05:07 90 24 40 12/24/18 05:00 102 24 151/79 (103) 12/24/18 04:00 Mechanical Ventilator 12/24/18 04:00 99.1 91 24 161/89 (113) 97 12/24/18 04:00 40 12/24/18 04:00 99 12/24/18 03:01 96 24 99 Mechanical Ventilator 40 12/24/18 03:00 92 24 137/71 (93) 12/24/18 02:54 99 25 40 12/24/18 02:53 98 25 97 Mechanical Ventilator 40 12/24/18 02:00 95 24 134/75 (94) 96 12/24/18 01:00 94 24 139/72 (94) 95 12/24/18 00:52 97 24 40 12/24/18 00:00 Mechanical Ventilator 12/24/18 00:00 99.2 100 24 127/70 (89) 97 12/24/18 00:00 91 12/24/18 00:00 40 12/23/18 23:00 92 24 120/67 (84) 93 12/23/18 22:47 94 24 97 Mechanical Ventilator 40 12/23/18 22:36 86 24 96 Mechanical Ventilator 40 12/23/18 22:35 92 24 40 12/23/18 22:30 92 23 116/70 (85) 93 12/23/18 22:00 96 24 125/72 (89) 96 12/23/18 21:00 122 30 40 12/23/18 21:00 106 24 128/77 (94) 12/23/18 20:00 40 12/23/18 20:00 99.4 96 24 128/82 (97) 96 12/23/18 20:00 Mechanical Ventilator 12/23/18 20:00 109 12/23/18 19:56 98 24 99 Mechanical Ventilator 40 12/23/18 19:50 96 23 97 Mechanical Ventilator 40 12/23/18 19:49 96 24 40 12/23/18 19:00 95 24 126/78 (94) 99 12/23/18 18:00 101 24 121/71 (88) 98 12/23/18 17:08 115 28 40 12/23/18 17:00 120 28 140/82 (101) 100 12/23/18 16:00 40 12/23/18 16:00 109 12/23/18 16:00 Mechanical Ventilator 12/23/18 16:00 97 24 126/75 (92) 95 12/23/18 15:32 124 22 99 Mechanical Ventilator 40 12/23/18 15:17 118 30 40 12/23/18 15:16 118 30 100 Mechanical Ventilator 40 12/23/18 15:00 98 24 123/73 (90) 12/23/18 14:00 107 24 118/68 (85) 100 12/23/18 13:00 114 23 130/86 (101) 96 12/23/18 12:56 116 24 40 12/23/18 12:00 40 12/23/18 12:00 107 12/23/18 12:00 Mechanical Ventilator 12/23/18 12:00 99.0 114 24 140/80 (100) 93 12/23/18 11:18 112 22 99 Mechanical Ventilator 40 12/23/18 11:08 112 24 97 Mechanical Ventilator 40 Height (Feet): 5 Height (Inches): 9.00 Weight (Pounds): 310 General Appearance: other - obese HEENT: other - orally intubated Respiratory/Chest: decreased breath sounds, other - on ventilator Cardiovascular: normal rate Abdomen: soft, non tender Extremities: no edema Neurologic/Psychiatric: alert, responsive Microbiology Date/Time Source Procedure Growth Status 12/22/18 13:00 Indwelling Cath Urine Culture - Preliminary NO GROWTH AFTER 24 HOURS Resulted 12/21/18 13:40 Rectum - Final NO CARBAPENEM-RESISTANT ENTEROBACTERI... Complete 12/21/18 13:40 Rectum VRE Culture - Final NO VANCOMYCIN RESISTANT ENTEROCOCCUS ... Complete Laboratory Tests Test 12/23/18 18:00 12/24/18 03:05 Arterial Blood pH 7.546 (7.350-7.450) Arterial Blood Partial Pressure CO2 34.1 mmHg (35.0-45.0) L Arterial Blood Partial Pressure O2 99.0 mmHg (75.0-100.0) Arterial Blood HCO3 28.9 mmol/L (22.0-26.0) H Arterial Blood Oxygen Saturation 97.9 % (95-100) Arterial Blood Base Excess 6.5 (-2-2) H Luis Test Positive White Blood Count 16.8 K/UL (4.8-10.8) H Red Blood Count 3.86 M/UL (4.20-5.40) L Hemoglobin 11.9 G/DL (12.0-16.0) L Hematocrit 37.0 % (37.0-47.0) Mean Corpuscular Volume 96 FL (80-99) Mean Corpuscular Hemoglobin 30.8 PG (27.0-31.0) Mean Corpuscular Hemoglobin Concent 32.1 G/DL (32.0-36.0) Red Cell Distribution Width 14.8 % (11.6-14.8) Platelet Count 258 K/UL (150-450) Mean Platelet Volume 4.7 FL (6.5-10.1) L Neutrophils (%) (Auto) 76.8 % (45.0-75.0) H Lymphocytes (%) (Auto) 13.3 % (20.0-45.0) L Monocytes (%) (Auto) 8.8 % (1.0-10.0) Eosinophils (%) (Auto) 0.0 % (0.0-3.0) Basophils (%) (Auto) 1.1 % (0.0-2.0) Sodium Level 142 MMOL/L (136-145) Potassium Level 3.3 MMOL/L (3.5-5.1) L Chloride Level 105 MMOL/L (98-107) Carbon Dioxide Level 27 MMOL/L (21-32) Anion Gap 10 mmol/L (5-15) Blood Urea Nitrogen 12 mg/dL (7-18) Creatinine 1.0 MG/DL (0.55-1.30) Estimat Glomerular Filtration Rate > 60 mL/min (>60) Glucose Level 136 MG/DL (74-106) H Uric Acid 1.7 MG/DL (2.6-7.2) L Calcium Level 8.6 MG/DL (8.5-10.1) Phosphorus Level 2.3 MG/DL (2.5-4.9) L Magnesium Level 2.5 MG/DL (1.8-2.4) H Total Bilirubin 0.3 MG/DL (0.2-1.0) Gamma Glutamyl Transpeptidase 27 U/L (5-85) Aspartate Amino Transf (AST/SGOT) 180 U/L (15-37) H Alanine Aminotransferase (ALT/SGPT) 80 U/L (12-78) H Alkaline Phosphatase 73 U/L (46-116) Total Creatine Kinase 7451 U/L (26-308) H Total Protein 7.0 G/DL (6.4-8.2) Albumin 3.1 G/DL (3.4-5.0) L Globulin 3.9 g/dL Albumin/Globulin Ratio 0.8 (1.0-2.7) L Current Medications Medications (Trade) Dose Ordered Sig/Amaya Route PRN Reason Start Time Stop Time Status Last Admin Dose Admin Acetaminophen (Tylenol) 650 mg Q4HR PRN NG FOR TEMP >100.5 12/23/18 07:30 01/22/19 07:29 12/24/18 10:07 Albuterol/ Ipratropium (Albuterol/ Ipratropium) 3 ml Q4HRT HHN 12/21/18 19:00 12/26/18 18:59 12/24/18 07:30 Ceftriaxone Sodium 1 gm/ Dextrose 55 ml @ 110 mls/hr Q24H IVPB 12/21/18 18:00 12/28/18 17:59 12/23/18 17:12 Dextrose (Dextrose 50%) 25 ml Q30M PRN IV Hypoglycemia 12/21/18 17:00 01/20/19 16:59 Dextrose (Dextrose 50%) 50 ml Q30M PRN IV Hypoglycemia 12/21/18 17:00 01/20/19 16:59 Fentanyl Citrate 1000 mcg/Sodium Chloride 100 ml @ 0 mls/hr Q24H IV 12/21/18 16:15 12/28/18 16:14 12/23/18 03:49 Haloperidol Lactate (Haldol) 5 mg Q6H PRN IM Agitation 12/24/18 00:30 01/23/19 00:29 Insulin Aspart (NovoLOG) EVERY 6 HOURS SUBQ 12/21/18 18:00 01/20/19 17:59 12/23/18 23:56 Lorazepam (Ativan 2mg/ml 1ml) 1 mg Q2H PRN IV agitation / restlessness 12/22/18 12:15 12/28/18 16:14 12/24/18 05:33 Methylprednisolone Sodium Succinate (Solu-MEDROL) 60 mg Q6HR IVP 12/23/18 18:00 01/20/19 21:59 12/24/18 05:37 Pantoprazole (Protonix) 40 mg EVERY 12 HOURS IVP 12/22/18 11:00 01/21/19 10:59 12/24/18 09:40 Potassium Phosphate 30 mm/ Sodium Chloride 285 ml @ 47.5 mls/hr ONCE ONCE IV 12/24/18 10:00 12/24/18 15:59 12/24/18 09:40 Quetiapine Fumarate (SEROquel) 25 mg Q6H PRN ORAL Agitation 12/22/18 12:30 01/20/19 12:29 Nikos Martinez MD Dec 24, 2018 11:05
--- NOTE | 2018-12-24 11:58 | NUR ---
RD ASSESSMENT & RECOMMENDATIONS SEE CARE ACTIVITY FOR COMPLETE ASSESSMENT DAILY ESTIMATED NEEDS: Needs based on Critical care, morbidly obese 11-14 kcal/ kg actual body wt (143kg) kcals/kg 8694-2490 total kcals 2-2.5g/kg IBW (66kg) g protein/kg 132-165 g total protein 25-30ml/kg abw (85kg) mL/kg 3400-0411 total fluid mLs NUTRITION DIAGNOSIS: Swallowing difficulty R/T respiratory status as evidenced by orally intubated and sedated, on OGT feeding. CURRENT TF:Glucerna 1.2 @ 40ml/hr x 24 hrs - held for weaning this AM PO DIET RECOMMENDATIONS: POST EXTUBATION-> CCHO LOW, CARDIAC/ texture per [employer] or as tolerated ENTERAL NUTRITION RECOMMENDATIONS: Vital AF 1.2 @ 55ml/hr x 24 hrs + Prosource 1pkt TID to provide 1320ml, 1584kcal, 99g + 33g prot, 811ml free water * Rec Vital AF 1.2 for critical care * Initiate Vital AF 1.2 @ 25ml/hr x 6hrs, advance 10ml q 4-6 hrs as tolerated to goal rate * Add Prosource 1pkt TID to meet protein needs * HOB over 30 degrees/ water flush per MD ADDITIONAL RECOMMENDATIONS: * CALIBRATED bedscale wt for accurate CBW * Monitor lytes daily, replete as needed * Monitor BGs closely while on Solumedrol
--- NOTE | 2018-12-24 12:20 | Nephrology Progress Note ---
Assessment/Plan Problem List: (1) Salicylate overdose (2) Psychosis (3) Anemia (4) Obesity (5) Hypokalemia (6) Rhabdomyolysis Assessment: high CPK Assessment HypoKalemia Mild Anemia s/p Acidosis resolved Respiratory failure Salicylate overdose Psychosis Asthma Obesity Plan Plan: K , Mag , Phos supplement as needed change IV fluids weaning as possible taper steroids as possible IV Protonix Resp management per Dr hurt monitor renal parameters Aim to taper IV steroids as possible Urine studies Subjective ROS Limited/Unobtainable: Yes Objective Objective Last 24 Hour Vital Signs Date Time Temp Pulse Resp B/P (MAP) Pulse Ox O2 Delivery O2 Flow Rate FiO2 12/24/18 10:42 92 23 40 12/24/18 10:37 100.0 12/24/18 10:30 119 22 90/69 (76) 97 12/24/18 10:15 89 24 138/73 (94) 93 12/24/18 10:00 95 23 136/84 (101) 95 12/24/18 09:45 86 24 133/87 (102) 91 12/24/18 09:30 92 24 130/76 (94) 96 12/24/18 09:15 89 24 137/71 (93) 96 12/24/18 09:00 90 24 139/76 (97) 94 12/24/18 08:51 90 24 40 12/24/18 08:51 87 12/24/18 08:45 95 24 129/84 (99) 93 12/24/18 08:30 102 21 151/89 (109) 92 12/24/18 08:15 109 24 155/77 (103) 95 12/24/18 08:00 Mechanical Ventilator 12/24/18 08:00 100.0 88 24 145/86 (105) 99 12/24/18 08:00 40 12/24/18 07:45 89 24 151/86 (107) 98 12/24/18 07:37 89 12/24/18 07:36 90 24 99 Mechanical Ventilator 40 12/24/18 07:30 99 9 161/96 (117) 12/24/18 07:30 24 95 12/24/18 07:29 94 24 100 Mechanical Ventilator 40 12/24/18 07:29 91 24 40 12/24/18 07:00 83 24 143/71 (95) 95 12/24/18 07:00 20 Mechanical Ventilator 40 12/24/18 06:45 92 24 143/72 (95) 94 12/24/18 06:30 89 24 138/76 (96) 93 12/24/18 06:00 94 24 123/108 (113) 97 12/24/18 06:00 20 Mechanical Ventilator 30 12/24/18 05:45 90 24 123/108 (113) 98 12/24/18 05:40 20 Mechanical Ventilator 30 12/24/18 05:07 90 24 40 12/24/18 05:00 102 24 151/79 (103) 12/24/18 04:00 Mechanical Ventilator 12/24/18 04:00 99.1 91 24 161/89 (113) 97 12/24/18 04:00 40 12/24/18 04:00 99 12/24/18 03:01 96 24 99 Mechanical Ventilator 40 12/24/18 03:00 92 24 137/71 (93) 12/24/18 02:54 99 25 40 12/24/18 02:53 98 25 97 Mechanical Ventilator 40 12/24/18 02:00 95 24 134/75 (94) 96 12/24/18 01:00 94 24 139/72 (94) 95 12/24/18 00:52 97 24 40 12/24/18 00:00 Mechanical Ventilator 12/24/18 00:00 99.2 100 24 127/70 (89) 97 12/24/18 00:00 91 12/24/18 00:00 40 12/23/18 23:00 92 24 120/67 (84) 93 12/23/18 22:47 94 24 97 Mechanical Ventilator 40 12/23/18 22:36 86 24 96 Mechanical Ventilator 40 12/23/18 22:35 92 24 40 12/23/18 22:30 92 23 116/70 (85) 93 12/23/18 22:00 96 24 125/72 (89) 96 12/23/18 21:00 122 30 40 12/23/18 21:00 106 24 128/77 (94) 12/23/18 20:00 40 12/23/18 20:00 99.4 96 24 128/82 (97) 96 12/23/18 20:00 Mechanical Ventilator 12/23/18 20:00 109 12/23/18 19:56 98 24 99 Mechanical Ventilator 40 12/23/18 19:50 96 23 97 Mechanical Ventilator 40 12/23/18 19:49 96 24 40 12/23/18 19:00 95 24 126/78 (94) 99 12/23/18 18:00 101 24 121/71 (88) 98 12/23/18 17:08 115 28 40 12/23/18 17:00 120 28 140/82 (101) 100 12/23/18 16:00 40 12/23/18 16:00 109 12/23/18 16:00 Mechanical Ventilator 12/23/18 16:00 97 24 126/75 (92) 95 12/23/18 15:32 124 22 99 Mechanical Ventilator 40 12/23/18 15:17 118 30 40 12/23/18 15:16 118 30 100 Mechanical Ventilator 40 12/23/18 15:00 98 24 123/73 (90) 12/23/18 14:00 107 24 118/68 (85) 100 12/23/18 13:00 114 23 130/86 (101) 96 12/23/18 12:56 116 24 40 Intake and Output 12/23/18 12/24/18 18:59 06:59 Intake Total 1878.0 ml 550 ml Output Total 420 ml 350 ml Balance 1458.0 ml 200 ml Free Water 50 ml 140 ml IV Total 1508.0 ml 10 ml Tube Feeding 320 ml 400 ml Output Urine Total 420 ml 350 ml Laboratory Tests 12/23/18 18:00: Arterial Blood pH 7.546H, Arterial Blood Partial Pressure CO2 34.1L, Arterial Blood Partial Pressure O2 99.0, Arterial Blood HCO3 28.9H, Arterial Blood Oxygen Saturation 97.9, Arterial Blood Base Excess 6.5H, Luis Test Positive 12/24/18 03:05: White Blood Count 16.8H, Red Blood Count 3.86L, Hemoglobin 11.9L, Hematocrit 37.0, Mean Corpuscular Volume 96, Mean Corpuscular Hemoglobin 30.8, Mean Corpuscular Hemoglobin Concent 32.1, Red Cell Distribution Width 14.8, Platelet Count 258, Mean Platelet Volume 4.7L, Neutrophils (%) (Auto) 76.8H, Lymphocytes (%) (Auto) 13.3L, Monocytes (%) (Auto) 8.8, Eosinophils (%) (Auto) 0.0, Basophils (%) (Auto) 1.1, Sodium Level 142, Potassium Level 3.3L, Chloride Level 105, Carbon Dioxide Level 27, Anion Gap 10, Blood Urea Nitrogen 12, Creatinine 1.0, Estimat Glomerular Filtration Rate > 60, Glucose Level 136H, Uric Acid 1.7L, Calcium Level 8.6, Phosphorus Level 2.3L, Magnesium Level 2.5H, Total Bilirubin 0.3, Gamma Glutamyl Transpeptidase 27, Aspartate Amino Transf ( AST/SGOT) 180H, Alanine Aminotransferase (ALT/SGPT) 80H, Alkaline Phosphatase 73 , Total Creatine Kinase 7451H, Total Protein 7.0, Albumin 3.1L, Globulin 3.9, Albumin/Globulin Ratio 0.8L Height (Feet): 5 Height (Inches): 9.00 Weight (Pounds): 310 General Appearance: mild distress EENT: other - vented Cardiovascular: tachycardia Respiratory/Chest: decreased breath sounds Abdomen: distended Jerzy Bourdeaux MD Dec 24, 2018 12:20
--- NOTE | 2018-12-24 12:25 | General Progress Note ---
Assessment/Plan Status: progressing, unchanged Assessment/Plan: Problems: (1) Anemia ICD Codes: D64.9 - Anemia, unspecified SNOMED: 529323675 (2) Salicylate overdose ICD Codes: T39.091A - Poisoning by salicylates, accidental (unintentional), initial encounter SNOMED: 267739736, 3380367 (3) Respiratory failure ICD Codes: J96.90 - Respiratory failure, unspecified, unspecified whether with hypoxia or hypercapnia SNOMED: 337250677 (4) Suicidal intent ICD Codes: R45.851 - Suicidal ideations SNOMED: 610149999 Status: unchanged Status Narrative Discussed with Dr. Saldana. Assessment/Plan No plans for GI procedures at this time Medical management for salicylate overdose TF Electrolyte correction anemia work up OB stool r/o GI bleed monitor H&H, prn transfusions bowel regimen ppi fu labs Subjective ROS Limited/Unobtainable: No Allergies: Coded Allergies: No Known Allergies (Unverified , 11/07/13) Objective Last 24 Hour Vital Signs Date Time Temp Pulse Resp B/P (MAP) Pulse Ox O2 Delivery O2 Flow Rate FiO2 12/24/18 10:42 92 23 40 12/24/18 10:37 100.0 12/24/18 10:30 119 22 90/69 (76) 97 12/24/18 10:15 89 24 138/73 (94) 93 12/24/18 10:00 95 23 136/84 (101) 95 12/24/18 09:45 86 24 133/87 (102) 91 12/24/18 09:30 92 24 130/76 (94) 96 12/24/18 09:15 89 24 137/71 (93) 96 12/24/18 09:00 90 24 139/76 (97) 94 12/24/18 08:51 90 24 40 12/24/18 08:51 87 12/24/18 08:45 95 24 129/84 (99) 93 12/24/18 08:30 102 21 151/89 (109) 92 12/24/18 08:15 109 24 155/77 (103) 95 12/24/18 08:00 Mechanical Ventilator 12/24/18 08:00 100.0 88 24 145/86 (105) 99 12/24/18 08:00 40 12/24/18 07:45 89 24 151/86 (107) 98 12/24/18 07:37 89 12/24/18 07:36 90 24 99 Mechanical Ventilator 40 12/24/18 07:30 99 9 161/96 (117) 12/24/18 07:30 24 95 12/24/18 07:29 94 24 100 Mechanical Ventilator 40 12/24/18 07:29 91 24 40 12/24/18 07:00 83 24 143/71 (95) 95 12/24/18 07:00 20 Mechanical Ventilator 40 12/24/18 06:45 92 24 143/72 (95) 94 12/24/18 06:30 89 24 138/76 (96) 93 12/24/18 06:00 94 24 123/108 (113) 97 12/24/18 06:00 20 Mechanical Ventilator 30 12/24/18 05:45 90 24 123/108 (113) 98 12/24/18 05:40 20 Mechanical Ventilator 30 12/24/18 05:07 90 24 40 12/24/18 05:00 102 24 151/79 (103) 12/24/18 04:00 Mechanical Ventilator 12/24/18 04:00 99.1 91 24 161/89 (113) 97 12/24/18 04:00 40 12/24/18 04:00 99 12/24/18 03:01 96 24 99 Mechanical Ventilator 40 12/24/18 03:00 92 24 137/71 (93) 12/24/18 02:54 99 25 40 12/24/18 02:53 98 25 97 Mechanical Ventilator 40 12/24/18 02:00 95 24 134/75 (94) 96 12/24/18 01:00 94 24 139/72 (94) 95 12/24/18 00:52 97 24 40 12/24/18 00:00 Mechanical Ventilator 12/24/18 00:00 99.2 100 24 127/70 (89) 97 12/24/18 00:00 91 12/24/18 00:00 40 12/23/18 23:00 92 24 120/67 (84) 93 12/23/18 22:47 94 24 97 Mechanical Ventilator 40 12/23/18 22:36 86 24 96 Mechanical Ventilator 40 12/23/18 22:35 92 24 40 12/23/18 22:30 92 23 116/70 (85) 93 12/23/18 22:00 96 24 125/72 (89) 96 12/23/18 21:00 122 30 40 12/23/18 21:00 106 24 128/77 (94) 12/23/18 20:00 40 12/23/18 20:00 99.4 96 24 128/82 (97) 96 12/23/18 20:00 Mechanical Ventilator 12/23/18 20:00 109 12/23/18 19:56 98 24 99 Mechanical Ventilator 40 12/23/18 19:50 96 23 97 Mechanical Ventilator 40 12/23/18 19:49 96 24 40 12/23/18 19:00 95 24 126/78 (94) 99 12/23/18 18:00 101 24 121/71 (88) 98 12/23/18 17:08 115 28 40 12/23/18 17:00 120 28 140/82 (101) 100 12/23/18 16:00 40 12/23/18 16:00 109 12/23/18 16:00 Mechanical Ventilator 12/23/18 16:00 97 24 126/75 (92) 95 12/23/18 15:32 124 22 99 Mechanical Ventilator 40 12/23/18 15:17 118 30 40 12/23/18 15:16 118 30 100 Mechanical Ventilator 40 12/23/18 15:00 98 24 123/73 (90) 12/23/18 14:00 107 24 118/68 (85) 100 12/23/18 13:00 114 23 130/86 (101) 96 12/23/18 12:56 116 24 40 Intake and Output 12/23/18 12/24/18 18:59 06:59 Intake Total 1878.0 ml 550 ml Output Total 420 ml 350 ml Balance 1458.0 ml 200 ml Free Water 50 ml 140 ml IV Total 1508.0 ml 10 ml Tube Feeding 320 ml 400 ml Output Urine Total 420 ml 350 ml Laboratory Tests 12/23/18 18:00: Arterial Blood pH 7.546H, Arterial Blood Partial Pressure CO2 34.1L, Arterial Blood Partial Pressure O2 99.0, Arterial Blood HCO3 28.9H, Arterial Blood Oxygen Saturation 97.9, Arterial Blood Base Excess 6.5H, Luis Test Positive 12/24/18 03:05: White Blood Count 16.8H, Red Blood Count 3.86L, Hemoglobin 11.9L, Hematocrit 37.0, Mean Corpuscular Volume 96, Mean Corpuscular Hemoglobin 30.8, Mean Corpuscular Hemoglobin Concent 32.1, Red Cell Distribution Width 14.8, Platelet Count 258, Mean Platelet Volume 4.7L, Neutrophils (%) (Auto) 76.8H, Lymphocytes (%) (Auto) 13.3L, Monocytes (%) (Auto) 8.8, Eosinophils (%) (Auto) 0.0, Basophils (%) (Auto) 1.1, Sodium Level 142, Potassium Level 3.3L, Chloride Level 105, Carbon Dioxide Level 27, Anion Gap 10, Blood Urea Nitrogen 12, Creatinine 1.0, Estimat Glomerular Filtration Rate > 60, Glucose Level 136H, Uric Acid 1.7L, Calcium Level 8.6, Phosphorus Level 2.3L, Magnesium Level 2.5H, Total Bilirubin 0.3, Gamma Glutamyl Transpeptidase 27, Aspartate Amino Transf ( AST/SGOT) 180H, Alanine Aminotransferase (ALT/SGPT) 80H, Alkaline Phosphatase 73 , Total Creatine Kinase 7451H, Total Protein 7.0, Albumin 3.1L, Globulin 3.9, Albumin/Globulin Ratio 0.8L Height (Feet): 5 Height (Inches): 9.00 Weight (Pounds): 310 General Appearance: no apparent distress EENT: normal ENT inspection Neck: supple Cardiovascular: normal rate Respiratory/Chest: decreased breath sounds Abdomen: normal bowel sounds, non tender, soft Extremities: non-tender Vladimir Saldana MD Dec 24, 2018 12:25
--- NOTE | 2018-12-24 12:45 | NUR ---
NURSE NOTES: Pt agitated and confused, attempts to pull at tubing. Fentanyl increased to 120mcg/hr. Repositioned and reassurance provided.
--- NOTE | 2018-12-24 13:20 | NUR ---
NURSE NOTES: Fentanyl increased to 140mcg/hr d/t restlessness and anxiety regarding ETT. Will continue to monitor.
--- NOTE | 2018-12-24 14:20 | NUR ---
NURSE NOTES: Patient remains agitated and restless, trying to talk a lot despite ETT. Fentanyl increased to 200mcg/hr.
--- NOTE | 2018-12-24 15:21 | Hematology/Onc Progress Note ---
Assessment/Plan Assessment/Plan Assessment and Recs: # Anemia of chronic disease due to underlying chronic medical issues, multifactorial --> Anemia workup has been ordered, rule out gi bleed --> No evidence of hemolysis is noted, peripheral smear has been reviewed. --> Hgb goal >7. Transfuse prn. --> Epogen or iron at this time is not particularly indicated --> Medications have been reviewed --> low threshold for gi evaluation in case has occult + # Leukocytosis is likely due to steriods --> monitor steriod use --> accuchecks qac and qhs --> insulin as needed prn --> on ctx per id prn --> wbc 12-->15->17 # Salicylate overdose now improved --> Medical management for salicylate overdose --> Sodium bicarbonate --> IVF started, as per renal # Electrolyte correction --> replace k prn basis # Resp failure --> pending ext The timing of this note does not necessarily reflect the time of the patient was seen. GREATLY APPRECIATE CONSULTATION. Subjective Constitutional: Denies: no symptoms, chills, fever, malaise, weakness, other HEENT: Denies: no symptoms, eye pain, blurred vision, tearing, double vision, ear pain, ear discharge, nose pain, nose congestion, throat pain, throat swelling, mouth pain, mouth swelling, other Cardiovascular: Denies: no symptoms, chest pain, edema, irregular heart rate, lightheadedness, palpitations, syncope, other Respiratory: Denies: no symptoms, cough, shortness of breath, SOB with excertion, SOB at rest, sputum, wheezing, other Gastrointestinal/Abdominal: Denies: no symptoms, abdomen distended, abdominal pain, black stools, tarry stools, blood in stool, constipated, diarrhea, difficulty swallowing, nausea, poor appetite, poor fluid intake, rectal bleeding , vomiting, other Allergies: Coded Allergies: No Known Allergies (Unverified , 11/07/13) Subjective 12/23: no events, no bleeding reported, tf held for potential extubation 12/24: icu, trach, agitated and confused, labs reviewed, abx, fentanyl Objective Objective Current Medications Medications (Trade) Dose Ordered Sig/Amaya Route PRN Reason Start Time Stop Time Status Last Admin Dose Admin Acetaminophen (Tylenol) 650 mg Q4HR PRN NG FOR TEMP >100.5 12/23/18 07:30 01/22/19 07:29 12/24/18 10:07 Acetylcysteine (Mucomyst) 200 mg EVERY 4 HOURS HHN 12/24/18 13:00 01/23/19 12:59 Albuterol/ Ipratropium (Albuterol/ Ipratropium) 3 ml Q4HRT HHN 12/21/18 19:00 12/26/18 18:59 12/24/18 12:24 Ceftriaxone Sodium 1 gm/ Dextrose 55 ml @ 110 mls/hr Q24H IVPB 12/21/18 18:00 12/28/18 17:59 12/23/18 17:12 Dextrose (Dextrose 50%) 25 ml Q30M PRN IV Hypoglycemia 12/21/18 17:00 01/20/19 16:59 Dextrose (Dextrose 50%) 50 ml Q30M PRN IV Hypoglycemia 12/21/18 17:00 01/20/19 16:59 Fentanyl Citrate 1000 mcg/Sodium Chloride 100 ml @ 0 mls/hr Q24H IV 12/21/18 16:15 12/28/18 16:14 12/24/18 12:42 Haloperidol Lactate (Haldol) 5 mg Q6H PRN IM Agitation 12/24/18 00:30 01/23/19 00:29 Insulin Aspart (NovoLOG) EVERY 6 HOURS SUBQ 12/21/18 18:00 01/20/19 17:59 12/24/18 11:44 Lorazepam (Ativan 2mg/ml 1ml) 1 mg Q2H PRN IV agitation / restlessness 12/22/18 12:15 12/28/18 16:14 12/24/18 05:33 Methylprednisolone Sodium Succinate (Solu-MEDROL) 60 mg Q6HR IVP 12/23/18 18:00 01/20/19 21:59 12/24/18 11:42 Pantoprazole (Protonix) 40 mg EVERY 12 HOURS IVP 12/22/18 11:00 01/21/19 10:59 12/24/18 09:40 Potassium Phosphate 30 mm/ Sodium Chloride 285 ml @ 47.5 mls/hr ONCE ONCE IV 12/24/18 10:00 12/24/18 15:59 12/24/18 09:40 Quetiapine Fumarate (SEROquel) 25 mg Q6H PRN ORAL Agitation 12/22/18 12:30 01/20/19 12:29 Last 24 Hour Vital Signs Date Time Temp Pulse Resp B/P (MAP) Pulse Ox O2 Delivery O2 Flow Rate FiO2 12/24/18 12:50 91 24 40 12/24/18 12:42 24 Mechanical Ventilator 40 12/24/18 12:30 99 24 127/75 (92) 95 12/24/18 12:28 91 24 99 Mechanical Ventilator 40 12/24/18 12:20 91 24 100 Mechanical Ventilator 40 12/24/18 12:00 Mechanical Ventilator 12/24/18 12:00 40 12/24/18 12:00 99.7 89 24 130/68 (88) 94 12/24/18 11:30 101 23 148/95 (112) 91 12/24/18 11:26 94 12/24/18 11:00 99 24 122/109 (113) 100 12/24/18 10:42 92 23 40 12/24/18 10:37 100.0 12/24/18 10:30 119 22 90/69 (76) 97 12/24/18 10:15 89 24 138/73 (94) 93 12/24/18 10:00 95 23 136/84 (101) 95 12/24/18 09:45 86 24 133/87 (102) 91 12/24/18 09:30 92 24 130/76 (94) 96 12/24/18 09:15 89 24 137/71 (93) 96 12/24/18 09:00 90 24 139/76 (97) 94 12/24/18 08:51 90 24 40 12/24/18 08:51 87 12/24/18 08:45 95 24 129/84 (99) 93 12/24/18 08:30 102 21 151/89 (109) 92 12/24/18 08:15 109 24 155/77 (103) 95 12/24/18 08:00 Mechanical Ventilator 12/24/18 08:00 100.0 88 24 145/86 (105) 99 12/24/18 08:00 40 12/24/18 07:45 89 24 151/86 (107) 98 12/24/18 07:37 89 12/24/18 07:36 90 24 99 Mechanical Ventilator 40 12/24/18 07:30 99 9 161/96 (117) 12/24/18 07:30 24 95 12/24/18 07:29 94 24 100 Mechanical Ventilator 40 12/24/18 07:29 91 24 40 12/24/18 07:00 83 24 143/71 (95) 95 12/24/18 07:00 20 Mechanical Ventilator 40 12/24/18 06:45 92 24 143/72 (95) 94 12/24/18 06:30 89 24 138/76 (96) 93 12/24/18 06:00 94 24 123/108 (113) 97 12/24/18 06:00 20 Mechanical Ventilator 30 12/24/18 05:45 90 24 123/108 (113) 98 12/24/18 05:40 20 Mechanical Ventilator 30 12/24/18 05:07 90 24 40 12/24/18 05:00 102 24 151/79 (103) 12/24/18 04:00 Mechanical Ventilator 12/24/18 04:00 99.1 91 24 161/89 (113) 97 12/24/18 04:00 40 12/24/18 04:00 99 12/24/18 03:01 96 24 99 Mechanical Ventilator 40 12/24/18 03:00 92 24 137/71 (93) 12/24/18 02:54 99 25 40 12/24/18 02:53 98 25 97 Mechanical Ventilator 40 12/24/18 02:00 95 24 134/75 (94) 96 12/24/18 01:00 94 24 139/72 (94) 95 12/24/18 00:52 97 24 40 12/24/18 00:00 Mechanical Ventilator 12/24/18 00:00 99.2 100 24 127/70 (89) 97 12/24/18 00:00 91 12/24/18 00:00 40 12/23/18 23:00 92 24 120/67 (84) 93 12/23/18 22:47 94 24 97 Mechanical Ventilator 40 12/23/18 22:36 86 24 96 Mechanical Ventilator 40 12/23/18 22:35 92 24 40 12/23/18 22:30 92 23 116/70 (85) 93 12/23/18 22:00 96 24 125/72 (89) 96 12/23/18 21:00 122 30 40 12/23/18 21:00 106 24 128/77 (94) 12/23/18 20:00 40 12/23/18 20:00 99.4 96 24 128/82 (97) 96 12/23/18 20:00 Mechanical Ventilator 12/23/18 20:00 109 12/23/18 19:56 98 24 99 Mechanical Ventilator 40 12/23/18 19:50 96 23 97 Mechanical Ventilator 40 12/23/18 19:49 96 24 40 12/23/18 19:00 95 24 126/78 (94) 99 12/23/18 18:00 101 24 121/71 (88) 98 12/23/18 17:08 115 28 40 12/23/18 17:00 120 28 140/82 (101) 100 12/23/18 16:00 40 12/23/18 16:00 109 12/23/18 16:00 Mechanical Ventilator 12/23/18 16:00 97 24 126/75 (92) 95 12/23/18 15:32 124 22 99 Mechanical Ventilator 40 12/23/18 15:17 118 30 40 12/23/18 15:16 118 30 100 Mechanical Ventilator 40 12/23/18 15:00 98 24 123/73 (90) 12/23/18 14:00 107 24 118/68 (85) 100 12/23/18 13:00 114 23 130/86 (101) 96 12/23/18 12:56 116 24 40 12/23/18 12:00 40 12/23/18 12:00 107 12/23/18 12:00 Mechanical Ventilator 12/23/18 12:00 99.0 114 24 140/80 (100) 93 12/23/18 11:18 112 22 99 Mechanical Ventilator 40 12/23/18 11:08 112 24 97 Mechanical Ventilator 40 12/23/18 11:00 105 24 126/77 (93) 92 12/23/18 10:30 126 26 40 12/23/18 10:30 40 12/23/18 10:00 146 26 163/96 (118) 91 12/23/18 09:15 109 19 150/102 (118) 95 12/23/18 09:00 113 19 150/102 (118) 95 12/23/18 08:45 125 20 150/102 (118) 95 12/23/18 08:30 125 25 150/102 (118) 88 12/23/18 08:30 114 19 40 12/23/18 08:25 100 12/23/18 08:25 104 16 40 12/23/18 08:15 108 24 134/86 (102) 95 12/23/18 08:15 24 Mechanical Ventilator 40 12/23/18 08:00 Mechanical Ventilator 12/23/18 08:00 99.0 97 24 134/86 (102) 94 12/23/18 08:00 107 12/23/18 08:00 40 12/23/18 08:00 24 Mechanical Ventilator 40 12/23/18 07:30 99 24 150/80 (103) 94 12/23/18 07:22 95 24 97 Mechanical Ventilator 40 12/23/18 07:11 99 24 40 12/23/18 07:07 118 26 99 Mechanical Ventilator 40 12/23/18 07:00 24 Mechanical Ventilator 40 12/23/18 07:00 90 24 150/80 (103) 98 12/23/18 06:30 95 24 128/65 (86) 98 12/23/18 06:00 24 Mechanical Ventilator 40 12/23/18 06:00 93 24 120/74 (89) 98 12/23/18 05:30 101 24 117/77 (90) 98 12/23/18 05:00 114 24 132/74 (93) 98 12/23/18 05:00 24 Mechanical Ventilator 40 12/23/18 05:00 24 Mechanical Ventilator 40 12/23/18 04:58 116 24 60 12/23/18 04:30 95 24 121/66 (84) 98 12/23/18 04:20 98.9 12/23/18 04:00 103 12/23/18 04:00 24 Mechanical Ventilator 40 12/23/18 04:00 40 12/23/18 04:00 Mechanical Ventilator 12/23/18 04:00 99.3 103 24 133/70 (91) 98 12/23/18 03:49 25 Mechanical Ventilator 40 12/23/18 03:38 113 24 93 Mechanical Ventilator 60 12/23/18 03:30 106 24 125/78 (94) 98 12/23/18 03:25 106 24 97 Mechanical Ventilator 60 12/23/18 03:17 114 24 60 12/23/18 03:00 24 Mechanical Ventilator 40 8/22/19 03:00 121 24 129/70 (89) 96 12/23/18 02:30 100 24 117/66 (83) 95 12/23/18 02:00 109 24 130/60 (83) 96 12/23/18 02:00 24 Mechanical Ventilator 40 12/23/18 01:30 94 24 127/68 (87) 96 12/23/18 01:22 124 24 60 12/23/18 01:00 24 Mechanical Ventilator 40 12/23/18 01:00 91 24 108/59 (75) 96 12/23/18 00:30 96 24 113/69 (84) 95 12/23/18 00:00 Mechanical Ventilator 12/23/18 00:00 98.9 95 24 112/60 (77) 96 12/23/18 00:00 24 Mechanical Ventilator 40 12/23/18 00:00 40 12/23/18 00:00 95 12/22/18 23:30 96 24 113/57 (75) 96 12/22/18 23:00 92 24 112/58 (76) 96 12/22/18 23:00 24 Mechanical Ventilator 40 12/22/18 22:58 92 24 96 Mechanical Ventilator 40 12/22/18 22:48 102 24 93 Mechanical Ventilator 12/22/18 22:43 92 24 40 12/22/18 22:30 86 24 110/57 (74) 97 12/22/18 22:00 85 24 123/75 (91) 96 12/22/18 22:00 24 Mechanical Ventilator 40 12/22/18 21:30 88 24 105/58 (74) 97 12/22/18 21:08 24 Mechanical Ventilator 40 12/22/18 21:00 24 Mechanical Ventilator 40 12/22/18 21:00 91 24 110/59 (76) 96 12/22/18 20:48 91 24 40 12/22/18 20:30 95 24 111/62 (78) 96 12/22/18 20:00 99.3 97 24 107/65 (79) 96 12/22/18 20:00 Mechanical Ventilator 12/22/18 20:00 97 12/22/18 20:00 24 Mechanical Ventilator 40 12/22/18 20:00 40 12/22/18 19:30 106 24 118/68 (85) 96 12/22/18 19:28 106 24 96 Mechanical Ventilator 40 12/22/18 19:17 98 24 99 Mechanical Ventilator 40 12/22/18 19:16 98 24 40 45 12/22/18 19:00 104 123/82 (96) 97 12/22/18 19:00 24 Mechanical Ventilator 45 12/22/18 19:00 103 24 123/82 (96) 97 12/22/18 18:30 94 24 139/95 (110) 93 12/22/18 18:00 92 24 116/66 (83) 95 12/22/18 18:00 24 Mechanical Ventilator 45 12/22/18 17:31 93 24 45 12/22/18 17:30 94 24 122/63 (82) 95 12/22/18 17:00 24 Mechanical Ventilator 45 12/22/18 17:00 95 24 122/71 (88) 97 12/22/18 16:30 98 24 134/67 (89) 97 12/22/18 16:00 45 12/22/18 16:00 94 12/22/18 16:00 99.5 100 24 118/70 (86) 95 12/22/18 16:00 24 Mechanical Ventilator 45 12/22/18 16:00 Mechanical Ventilator 12/22/18 15:30 100 24 109/66 (80) 96 Intake and Output 12/23/18 12/24/18 18:59 06:59 Intake Total 1878.0 ml 550 ml Output Total 420 ml 350 ml Balance 1458.0 ml 200 ml Free Water 50 ml 140 ml IV Total 1508.0 ml 10 ml Tube Feeding 320 ml 400 ml Output Urine Total 420 ml 350 ml Labs Test 12/21/18 17:45 12/21/18 21:00 12/22/18 05:00 12/22/18 13:00 Arterial Blood pH 7.294 (7.350-7.450) 7.400 (7.350-7.450) Arterial Blood Partial Pressure CO2 43.8 mmHg (35.0-45.0) 31.1 mmHg (35.0-45.0) Arterial Blood Partial Pressure O2 96.3 mmHg (75.0-100.0) 105.1 mmHg (75.0-100.0) Arterial Blood HCO3 20.8 mmol/L (22.0-26.0) 19.1 mmol/L (22.0-26.0) Arterial Blood Oxygen Saturation 96.8 % (95-100) 97.6 % (95-100) Arterial Blood Base Excess -5.6 (-2-2) -4.6 (-2-2) Luis Test Positive Positive White Blood Count 12.0 K/UL (4.8-10.8) Red Blood Count 3.64 M/UL (4.20-5.40) Hemoglobin 11.3 G/DL (12.0-16.0) Hematocrit 34.6 % (37.0-47.0) Mean Corpuscular Volume 95 FL (80-99) Mean Corpuscular Hemoglobin 31.1 PG (27.0-31.0) Mean Corpuscular Hemoglobin Concent 32.7 G/DL (32.0-36.0) Red Cell Distribution Width 14.4 % (11.6-14.8) Platelet Count 263 K/UL (150-450) Mean Platelet Volume 4.9 FL (6.5-10.1) Neutrophils (%) (Auto) 77.0 % (45.0-75.0) Lymphocytes (%) (Auto) 20.2 % (20.0-45.0) Monocytes (%) (Auto) 2.3 % (1.0-10.0) Eosinophils (%) (Auto) 0.0 % (0.0-3.0) Basophils (%) (Auto) 0.5 % (0.0-2.0) Sodium Level 144 MMOL/L (136-145) Potassium Level 3.2 MMOL/L (3.5-5.1) Chloride Level 108 MMOL/L (98-107) Carbon Dioxide Level 25 MMOL/L (21-32) Anion Gap 11 mmol/L (5-15) Blood Urea Nitrogen 9 mg/dL (7-18) Creatinine 1.0 MG/DL (0.55-1.30) Estimat Glomerular Filtration Rate > 60 mL/min (>60) Glucose Level 124 MG/DL (74-106) Calcium Level 8.1 MG/DL (8.5-10.1) Urine Color Yellow Urine Appearance Clear Urine pH 6 (4.5-8.0) Urine Specific [place] 1.010 (1.005-1.035) Urine Protein 3+ (NEGATIVE) Urine Glucose (UA) Negative (NEGATIVE) Urine Ketones 1+ (NEGATIVE) Urine Blood 5+ (NEGATIVE) Urine Nitrite Negative (NEGATIVE) Urine Bilirubin Negative (NEGATIVE) Urine Urobilinogen Normal MG/DL (0.0-1.0) Urine Leukocyte Esterase 1+ (NEGATIVE) Urine RBC 60-80 /HPF (0 - 2) Urine WBC 2-4 /HPF (0 - 2) Urine Squamous Epithelial Cells None /LPF (NONE/OCC) Urine Bacteria Occasional /HPF (NONE) Test 12/23/18 05:00 12/23/18 09:43 12/23/18 18:00 12/24/18 03:05 White Blood Count 14.9 K/UL (4.8-10.8) 16.8 K/UL (4.8-10.8) Red Blood Count 3.84 M/UL (4.20-5.40) 3.86 M/UL (4.20-5.40) Hemoglobin 12.0 G/DL (12.0-16.0) 11.9 G/DL (12.0-16.0) Hematocrit 36.2 % (37.0-47.0) 37.0 % (37.0-47.0) Mean Corpuscular Volume 94 FL (80-99) 96 FL (80-99) Mean Corpuscular Hemoglobin 31.2 PG (27.0-31.0) 30.8 PG (27.0-31.0) Mean Corpuscular Hemoglobin Concent 33.1 G/DL (32.0-36.0) 32.1 G/DL (32.0-36.0) Red Cell Distribution Width 14.2 % (11.6-14.8) 14.8 % (11.6-14.8) Platelet Count 276 K/UL (150-450) 258 K/UL (150-450) Mean Platelet Volume 4.8 FL (6.5-10.1) 4.7 FL (6.5-10.1) Neutrophils (%) (Auto) 73.6 % (45.0-75.0) 76.8 % (45.0-75.0) Lymphocytes (%) (Auto) 15.2 % (20.0-45.0) 13.3 % (20.0-45.0) Monocytes (%) (Auto) 10.6 % (1.0-10.0) 8.8 % (1.0-10.0) Eosinophils (%) (Auto) 0.0 % (0.0-3.0) 0.0 % (0.0-3.0) Basophils (%) (Auto) 0.6 % (0.0-2.0) 1.1 % (0.0-2.0) Reticulocyte Count 3.5 % (0.5-2.0) Prothrombin Time 11.1 SEC (9.30-11.50) Prothromb Time International Ratio 1.0 (0.9-1.1) Activated Partial Thromboplast Time 25 SEC (23-33) Sodium Level 140 MMOL/L (136-145) 142 MMOL/L (136-145) Potassium Level 2.6 MMOL/L (3.5-5.1) 3.3 MMOL/L (3.5-5.1) Chloride Level 104 MMOL/L (98-107) 105 MMOL/L (98-107) Carbon Dioxide Level 29 MMOL/L (21-32) 27 MMOL/L (21-32) Anion Gap 6 mmol/L (5-15) 10 mmol/L (5-15) Blood Urea Nitrogen 10 mg/dL (7-18) 12 mg/dL (7-18) Creatinine 1.0 MG/DL (0.55-1.30) 1.0 MG/DL (0.55-1.30) Estimat Glomerular Filtration Rate > 60 mL/min (>60) > 60 mL/min (>60) Glucose Level 126 MG/DL (74-106) 136 MG/DL (74-106) Hemoglobin A1c 6.0 % (4.3-6.0) Lactic Acid Level 1.80 mmol/L (0.4-2.0) Uric Acid 1.0 MG/DL (2.6-7.2) 1.7 MG/DL (2.6-7.2) Calcium Level 8.3 MG/DL (8.5-10.1) 8.6 MG/DL (8.5-10.1) Phosphorus Level 1.3 MG/DL (2.5-4.9) 2.3 MG/DL (2.5-4.9) Magnesium Level 2.2 MG/DL (1.8-2.4) 2.5 MG/DL (1.8-2.4) Iron Level 39 ug/dL (50-175) Total Iron Binding Capacity 278 ug/dL (250-450) Percent Iron Saturation 14 % (15-50) Unsaturated Iron Binding 239 ug/dL (112-346) Ferritin 35 NG/ML (8-388) Total Bilirubin 0.2 MG/DL (0.2-1.0) 0.3 MG/DL (0.2-1.0) Gamma Glutamyl Transpeptidase 28 U/L (5-85) 27 U/L (5-85) Aspartate Amino Transf (AST/SGOT) 180 U/L (15-37) 180 U/L (15-37) Alanine Aminotransferase (ALT/SGPT) 63 U/L (12-78) 80 U/L (12-78) Alkaline Phosphatase 73 U/L (46-116) 73 U/L (46-116) Ammonia 47 umol/L (11-32) Total Creatine Kinase 7141 U/L (26-308) 7451 U/L (26-308) C-Reactive Protein, Quantitative 0.9 mg/dL (0.00-0.90) Pro-B-Type Natriuretic Peptide 76 pg/mL (0-125) Total Protein 6.8 G/DL (6.4-8.2) 7.0 G/DL (6.4-8.2) Albumin 3.2 G/DL (3.4-5.0) 3.1 G/DL (3.4-5.0) Globulin 3.6 g/dL 3.9 g/dL Albumin/Globulin Ratio 0.9 (1.0-2.7) 0.8 (1.0-2.7) Triglycerides Level 51 MG/DL (30-150) Cholesterol Level 221 MG/DL (< 200) LDL Cholesterol 161 mg/dL (<100) HDL Cholesterol 39 MG/DL (40-60) Cholesterol/HDL Ratio 5.7 (3.3-4.4) Lipase 831 U/L (73-393) Vitamin B12 Level 592 PG/ML (193-986) Folate 10.9 NG/ML (8.6-58.9) Thyroid Stimulating Hormone (TSH) 0.237 uiU/mL (0.358-3.740) Free Thyroxine 0.74 NG/DL (0.76-1.46) Salicylates Level 11.6 ug/mL (2.8-20) Arterial Blood pH 7.486 (7.350-7.450) 7.546 (7.350-7.450) Arterial Blood Partial Pressure CO2 44.5 mmHg (35.0-45.0) 34.1 mmHg (35.0-45.0) Arterial Blood Partial Pressure O2 59.0 mmHg (75.0-100.0) 99.0 mmHg (75.0-100.0) Arterial Blood HCO3 32.8 mmol/L (22.0-26.0) 28.9 mmol/L (22.0-26.0) Arterial Blood Oxygen Saturation 91.5 % (95-100) 97.9 % (95-100) Arterial Blood Base Excess 8.4 (-2-2) 6.5 (-2-2) Luis Test Positive Positive Height (Feet): 5 Height (Inches): 9.00 Weight (Pounds): 310 Objective Physical Exam General Appearance: well appearing, nad, obese Head: normocephalic ++ ogt Resp: normal breath sounds ++ vent Cardiovascular: normal rate Gastrointestinal: normal inspection, non tender, soft, normal bowel sounds, non -distended Msk: normal inspection, back normal Skin: normal inspection, normal color, no rash, warm/dry, palpation normal, well hydrated Lymphatic: normal inspection, no adenopathy Wade Bonds MD Dec 24, 2018 15:21
--- NOTE | 2018-12-24 15:21 | NUR ---
CASE MANAGEMENT: REVIEW 12/24/2018 SI:SEPSIS. PNA. T 99.7 HR 89 RR 24 B/P 130/68 SATS 94% ON MECH VENT FIO2 40% WBC 16.8 K 3.3 GLU 136 PHOS 2.3 MG 2.5 IS:INSULIN ASPART SUBQ Q6H PROTONIX IV Q12H K PHOS IV X1 FENTANYL IV Q24H CEFTRIAXONE IV Q24H SOLU MEDROL IV Q6H ICU
[2018-12-24] MEDS: Acetylcysteine 20% Soln 4ml HHN SCH ×3 (15:22→23:15)
--- NOTE | 2018-12-24 16:20 | NUR ---
NURSE NOTES: Pt remains agitated, and confused. Asked this handbook writer to call her mother, later son said pt's mother is . Ativan 1MG IV given. An hour later, pt received Haldol 5MG IM d/t no effect of Ativan, pt remained restless.
[2018-12-24] MEDS: Haloperidol 5mg/ml Inj IM PRN (16:22)
[2018-12-24] MEDS: cefTRIAXone 1 GM in D5W 55 ML IVPB SCH (18:37)
--- NOTE | 2018-12-24 18:42 | NUR ---
NURSE NOTES: Son visiting at bedside. Pt requests belongings and valuables sent home with son. Nursing client service supervisor called to get $1200 and 4 credit cards out of the safe. Nursing client service supervisor along with security came to pt's to sign out for the money out from the safe. Pt gave $1100 and 4 credit cards and 2 belonging bags for son to take home. $100 to be locked back up with security. Will continue to monitor.
--- NOTE | 2018-12-24 19:24 | NUR ---
HAND-OFF: Report given to CLARENCE Molina.
--- NOTE | 2018-12-24 19:25 | NUR ---
NURSE NOTES: Endorsement received from Lee Ann, RN and Justine, RN. Patient opens eyes spontaneously, follows simple commands. Orally intubated with ET 7.0, 21 lipline. AC 24, 550, PEEP 5, 40%. With OGT patent and intact. Placement rechecked per auscultation. Receiving Glucerna 1.2 40ml/hr. No residual. With right wrist g 20 heplock, noted to be leaking. Discontinued. left AC g20. With Fentanyl 240mcg/hr. RASS -2. Mon catheter F18 draining to urimeter. Head of bed elevated. Bed locked and in low position. Bed alarm on. With bilateral soft wrists restraints for attempting to pull out tubes.
--- NOTE | 2018-12-24 20:39 | Cardiology Progress Note ---
Assessment/Plan Assessment/Plan 1. Sinus tachycardia, most likely due to hypoxemia, there is no need for AV carissa agents. 2. Acute respiratory failure due to right lung whiteout, s/p intubation and resolution. 3. History of chronic obstructive pulmonary disease. 4. History of salicylate overdose. 5. Morbid obesity. 6. Hyperthyroidism 7. Dyslipidemia Subjective Subjective Sinus rhythm at rate of 88. Intubated at FiO2 of 40%. Objective Last 24 Hour Vital Signs Date Time Temp Pulse Resp B/P (MAP) Pulse Ox O2 Delivery O2 Flow Rate FiO2 12/24/18 19:13 88 24 94 Mechanical Ventilator 40 88 24 40 12/24/18 19:12 83 24 94 Mechanical Ventilator 40 12/24/18 19:00 79 24 139/76 (97) 94 12/24/18 18:31 24 Mechanical Ventilator 12/24/18 18:30 81 24 147/75 (99) 95 12/24/18 18:00 106 24 142/83 (102) 97 12/24/18 18:00 23 Mechanical Ventilator 40 12/24/18 17:45 86 24 131/74 (93) 100 12/24/18 17:30 20 Mechanical Ventilator 40 12/24/18 17:30 117 25 151/78 (102) 95 12/24/18 17:01 93 24 40 12/24/18 17:00 24 Mechanical Ventilator 40 12/24/18 17:00 97 24 151/77 (101) 96 12/24/18 16:45 116 23 153/83 (106) 96 12/24/18 16:30 84 24 160/76 (104) 94 12/24/18 16:20 21 Mechanical Ventilator 40 12/24/18 16:00 40 12/24/18 16:00 99.6 86 24 143/85 (104) 95 12/24/18 16:00 Mechanical Ventilator 12/24/18 16:00 21 Mechanical Ventilator 40 12/24/18 15:56 92 12/24/18 15:30 86 24 96 Mechanical Ventilator 40 12/24/18 15:30 84 24 141/68 (92) 95 12/24/18 15:23 91 24 96 Mechanical Ventilator 40 12/24/18 15:23 91 24 40 12/24/18 15:00 20 Mechanical Ventilator 40 12/24/18 15:00 120 22 162/91 (114) 94 12/24/18 14:30 99 24 145/87 (106) 96 12/24/18 14:20 21 Mechanical Ventilator 40 12/24/18 14:00 90 24 139/77 (97) 95 12/24/18 14:00 20 Mechanical Ventilator 40 12/24/18 13:30 86 24 128/71 (90) 94 12/24/18 13:20 21 Mechanical Ventilator 40 12/24/18 13:00 94 23 138/71 (93) 93 12/24/18 12:50 91 24 40 12/24/18 12:42 24 Mechanical Ventilator 40 12/24/18 12:30 99 24 127/75 (92) 95 12/24/18 12:28 91 24 99 Mechanical Ventilator 40 12/24/18 12:20 91 24 100 Mechanical Ventilator 40 12/24/18 12:00 Mechanical Ventilator 12/24/18 12:00 40 12/24/18 12:00 99.7 89 24 130/68 (88) 94 12/24/18 11:30 101 23 148/95 (112) 91 12/24/18 11:26 94 12/24/18 11:00 99 24 122/109 (113) 100 12/24/18 11:00 20 Mechanical Ventilator 40 12/24/18 10:42 92 23 40 12/24/18 10:37 100.0 12/24/18 10:30 119 22 90/69 (76) 97 12/24/18 10:15 89 24 138/73 (94) 93 12/24/18 10:00 95 23 136/84 (101) 95 12/24/18 09:45 86 24 133/87 (102) 91 12/24/18 09:30 92 24 130/76 (94) 96 12/24/18 09:15 89 24 137/71 (93) 96 12/24/18 09:00 20 Mechanical Ventilator 40 12/24/18 09:00 90 24 139/76 (97) 94 12/24/18 08:51 90 24 40 12/24/18 08:51 87 12/24/18 08:45 95 24 129/84 (99) 93 12/24/18 08:30 102 21 151/89 (109) 92 12/24/18 08:15 109 24 155/77 (103) 95 12/24/18 08:00 Mechanical Ventilator 12/24/18 08:00 20 Mechanical Ventilator 40 12/24/18 08:00 100.0 88 24 145/86 (105) 99 12/24/18 08:00 40 12/24/18 07:45 89 24 151/86 (107) 98 12/24/18 07:37 89 12/24/18 07:36 90 24 99 Mechanical Ventilator 40 12/24/18 07:30 99 9 161/96 (117) 12/24/18 07:30 24 95 12/24/18 07:29 94 24 100 Mechanical Ventilator 40 12/24/18 07:29 91 24 40 12/24/18 07:00 83 24 143/71 (95) 95 12/24/18 07:00 20 Mechanical Ventilator 40 12/24/18 06:45 92 24 143/72 (95) 94 12/24/18 06:30 89 24 138/76 (96) 93 12/24/18 06:00 94 24 123/108 (113) 97 12/24/18 06:00 20 Mechanical Ventilator 30 12/24/18 05:45 90 24 123/108 (113) 98 12/24/18 05:40 20 Mechanical Ventilator 30 12/24/18 05:07 90 24 40 12/24/18 05:00 102 24 151/79 (103) 12/24/18 04:00 Mechanical Ventilator 12/24/18 04:00 99.1 91 24 161/89 (113) 97 12/24/18 04:00 40 12/24/18 04:00 99 12/24/18 03:01 96 24 99 Mechanical Ventilator 40 12/24/18 03:00 92 24 137/71 (93) 12/24/18 02:54 99 25 40 12/24/18 02:53 98 25 97 Mechanical Ventilator 40 12/24/18 02:00 95 24 134/75 (94) 96 12/24/18 01:00 94 24 139/72 (94) 95 12/24/18 00:52 97 24 40 12/24/18 00:00 Mechanical Ventilator 12/24/18 00:00 99.2 100 24 127/70 (89) 97 12/24/18 00:00 91 12/24/18 00:00 40 12/23/18 23:00 92 24 120/67 (84) 93 12/23/18 22:47 94 24 97 Mechanical Ventilator 40 12/23/18 22:36 86 24 96 Mechanical Ventilator 40 12/23/18 22:35 92 24 40 12/23/18 22:30 92 23 116/70 (85) 93 12/23/18 22:00 96 24 125/72 (89) 96 12/23/18 21:00 122 30 40 12/23/18 21:00 106 24 128/77 (94) Intake and Output 12/23/18 12/24/18 19:00 07:00 Intake Total 1873.0 ml 470 ml Output Total 420 ml 340 ml Balance 1453.0 ml 130 ml Free Water 100 ml 90 ml IV Total 1453.0 ml 20 ml Tube Feeding 320 ml 360 ml Output Urine Total 420 ml 340 ml Laboratory Tests Test 12/24/18 03:05 White Blood Count 16.8 K/UL (4.8-10.8) H Red Blood Count 3.86 M/UL (4.20-5.40) L Hemoglobin 11.9 G/DL (12.0-16.0) L Hematocrit 37.0 % (37.0-47.0) Mean Corpuscular Volume 96 FL (80-99) Mean Corpuscular Hemoglobin 30.8 PG (27.0-31.0) Mean Corpuscular Hemoglobin Concent 32.1 G/DL (32.0-36.0) Red Cell Distribution Width 14.8 % (11.6-14.8) Platelet Count 258 K/UL (150-450) Mean Platelet Volume 4.7 FL (6.5-10.1) L Neutrophils (%) (Auto) 76.8 % (45.0-75.0) H Lymphocytes (%) (Auto) 13.3 % (20.0-45.0) L Monocytes (%) (Auto) 8.8 % (1.0-10.0) Eosinophils (%) (Auto) 0.0 % (0.0-3.0) Basophils (%) (Auto) 1.1 % (0.0-2.0) Sodium Level 142 MMOL/L (136-145) Potassium Level 3.3 MMOL/L (3.5-5.1) L Chloride Level 105 MMOL/L (98-107) Carbon Dioxide Level 27 MMOL/L (21-32) Anion Gap 10 mmol/L (5-15) Blood Urea Nitrogen 12 mg/dL (7-18) Creatinine 1.0 MG/DL (0.55-1.30) Estimat Glomerular Filtration Rate > 60 mL/min (>60) Glucose Level 136 MG/DL (74-106) H Uric Acid 1.7 MG/DL (2.6-7.2) L Calcium Level 8.6 MG/DL (8.5-10.1) Phosphorus Level 2.3 MG/DL (2.5-4.9) L Magnesium Level 2.5 MG/DL (1.8-2.4) H Total Bilirubin 0.3 MG/DL (0.2-1.0) Gamma Glutamyl Transpeptidase 27 U/L (5-85) Aspartate Amino Transf (AST/SGOT) 180 U/L (15-37) H Alanine Aminotransferase (ALT/SGPT) 80 U/L (12-78) H Alkaline Phosphatase 73 U/L (46-116) Total Creatine Kinase 7451 U/L (26-308) H Total Protein 7.0 G/DL (6.4-8.2) Albumin 3.1 G/DL (3.4-5.0) L Globulin 3.9 g/dL Albumin/Globulin Ratio 0.8 (1.0-2.7) L Microbiology Date/Time Source Procedure Growth Status 12/22/18 13:00 Indwelling Cath Urine Culture - Preliminary NO GROWTH AFTER 24 HOURS Resulted Objective HEENT: Atraumatic and normocephalic. Anicteric. Pupils are equal, round, and reactive to light and accommodation, intubated. NECK: JVP cannot be assessed. No carotid bruit. CARDIOVASCULAR: Normal S1, S2. Regular rate and rhythm. No murmurs, gallops, or rubs. PMI is at fourth intercostal space in the midclavicular line. LUNGS: Diminished breath sounds in both lungs. ABDOMEN: Soft, obese. No hepatosplenomegaly. Positive bowel sounds. EXTREMITIES: No evidence of edema, clubbing, or cyanosis. Velasquez Staton MD Dec 24, 2018 20:39
--- NOTE | 2018-12-24 21:00 | NUR ---
NURSE NOTES: Inserted peripheral IV g20 at left hand. Patient repositioned.
--- NOTE | 2018-12-24 21:44 | Pulmonolgy Critical Care Note ---
Critical Care - Asmt/Plan Assessment/Plan: Pulmonary CCM Progress Note HPI Patient is a 58-year-old woman with apparent history of Obstructive Airways Disease, Schizophrenia, Obesity, presented with shortness of breath, increased anxiety. Per ER notes history limited by mental status, being a poor historian. Patient noted to be extremely short of breath requiring intubation in the ED. On mechainical ventilation in the ICU Noted to have elevated ASA level on admission, IVF no DC Did not tolerate weaning today Physical Exam Vital Signs Noted General Appearance: normal inspection, mildly sedated on the ventilator Head: NCAT ENT: Moist mm, ETT, OGT, JVP not visible Neck: normal inspection, full range of motion, supple, no bony tend Respiratory: normal inspection, no respiratory distress, no retraction, mild wheezing, reduced basal BS Cardiovascular: regular rate, rhythm, Normal HS1, HS2 Gastrointestinal: normal inspection, normal bowel sounds, non tender, soft, no guarding, no hernia Genitourinary: no CVA tenderness Musculoskeletal: normal inspection, moderate edema Neurologic: no focal signs noted, follows commands Impression: Respiratory failure - Hypercapneic and Hypoxic Elevated Salicylate level Pneumonia Possible Congestive Heart Failure Salicylate overdose Schizophrenia/Psychosis Asthma Obesity Plan: ACV Vt 550 P5 Adjust FIO2 sats 90-94%, wan as tolerated IV Antibiotics IV Solumedrol HHN Wean as tolerated ISS LPN PRIVATE DUTY med PRN Sedation BLE dupplex PPX IV alkalinized fluids - reduce OGT feeding advance Labs Noted Test 12/21/18 10:45 White Blood Count 8.8 K/UL (4.8-10.8) Red Blood Count 4.10 M/UL (4.20-5.40) Hemoglobin 12.7 G/DL (12.0-16.0) Hematocrit 39.3 % (37.0-47.0) Mean Corpuscular Volume 96 FL (80-99) Mean Corpuscular Hemoglobin 30.9 PG (27.0-31.0) Mean Corpuscular Hemoglobin Concent 32.2 G/DL (32.0-36.0) Red Cell Distribution Width 14.7 % (11.6-14.8) Platelet Count 292 K/UL (150-450) Mean Platelet Volume 5.0 FL (6.5-10.1) Neutrophils (%) (Auto) 50.2 % (45.0-75.0) Lymphocytes (%) (Auto) 41.4 % (20.0-45.0) Monocytes (%) (Auto) 6.2 % (1.0-10.0) Eosinophils (%) (Auto) 0.2 % (0.0-3.0) Basophils (%) (Auto) 2.0 % (0.0-2.0) Sodium Level 142 MMOL/L (136-145) Potassium Level 4.0 MMOL/L (3.5-5.1) Chloride Level 110 MMOL/L (98-107) Carbon Dioxide Level 20 MMOL/L (21-32) Anion Gap 12 mmol/L (5-15) Blood Urea Nitrogen 11 mg/dL (7-18) Creatinine 1.0 MG/DL (0.55-1.30) Estimat Glomerular Filtration Rate > 60 mL/min (>60) Glucose Level 90 MG/DL (74-106) Calcium Level 8.5 MG/DL (8.5-10.1) Total Bilirubin 0.3 MG/DL (0.2-1.0) Aspartate Amino Transf (AST/SGOT) 44 U/L (15-37) Alanine Aminotransferase (ALT/SGPT) 58 U/L (12-78) Alkaline Phosphatase 79 U/L (46-116) Troponin I 0.000 ng/mL (0.000-0.056) Total Protein 7.8 G/DL (6.4-8.2) Albumin 3.5 G/DL (3.4-5.0) Globulin 4.3 g/dL Albumin/Globulin Ratio 0.8 (1.0-2.7) Thyroid Stimulating Hormone (TSH) 0.239 uiU/mL (0.358-3.740) Salicylates Level 46.0 ug/mL (2.8-20) Acetaminophen Level < 2 MCG/ML (10-30) Serum Alcohol < 3 mg/dL CXR: ETT appropriate, RLL infiltrate, vascular congestion Critical Care - Objective Last 24 Hour Vital Signs Date Time Temp Pulse Resp B/P (MAP) Pulse Ox O2 Delivery O2 Flow Rate FiO2 12/24/18 21:16 89 24 40 12/24/18 19:13 88 24 94 Mechanical Ventilator 40 88 24 40 12/24/18 19:12 83 24 94 Mechanical Ventilator 40 12/24/18 19:00 79 24 139/76 (97) 94 12/24/18 18:31 24 Mechanical Ventilator 12/24/18 18:30 81 24 147/75 (99) 95 12/24/18 18:00 106 24 142/83 (102) 97 12/24/18 18:00 23 Mechanical Ventilator 40 12/24/18 17:45 86 24 131/74 (93) 100 12/24/18 17:30 20 Mechanical Ventilator 40 12/24/18 17:30 117 25 151/78 (102) 95 12/24/18 17:01 93 24 40 12/24/18 17:00 24 Mechanical Ventilator 40 12/24/18 17:00 97 24 151/77 (101) 96 12/24/18 16:45 116 23 153/83 (106) 96 12/24/18 16:30 84 24 160/76 (104) 94 12/24/18 16:20 21 Mechanical Ventilator 40 12/24/18 16:00 40 12/24/18 16:00 99.6 86 24 143/85 (104) 95 12/24/18 16:00 Mechanical Ventilator 12/24/18 16:00 21 Mechanical Ventilator 40 12/24/18 15:56 92 12/24/18 15:30 86 24 96 Mechanical Ventilator 40 12/24/18 15:30 84 24 141/68 (92) 95 12/24/18 15:23 91 24 96 Mechanical Ventilator 40 12/24/18 15:23 91 24 40 12/24/18 15:00 20 Mechanical Ventilator 40 12/24/18 15:00 120 22 162/91 (114) 94 12/24/18 14:30 99 24 145/87 (106) 96 12/24/18 14:20 21 Mechanical Ventilator 40 12/24/18 14:00 90 24 139/77 (97) 95 12/24/18 14:00 20 Mechanical Ventilator 40 12/24/18 13:30 86 24 128/71 (90) 94 12/24/18 13:20 21 Mechanical Ventilator 40 12/24/18 13:00 94 23 138/71 (93) 93 12/24/18 12:50 91 24 40 12/24/18 12:42 24 Mechanical Ventilator 40 12/24/18 12:30 99 24 127/75 (92) 95 12/24/18 12:28 91 24 99 Mechanical Ventilator 40 12/24/18 12:20 91 24 100 Mechanical Ventilator 40 12/24/18 12:00 Mechanical Ventilator 12/24/18 12:00 40 12/24/18 12:00 99.7 89 24 130/68 (88) 94 12/24/18 11:30 101 23 148/95 (112) 91 12/24/18 11:26 94 12/24/18 11:00 99 24 122/109 (113) 100 12/24/18 11:00 20 Mechanical Ventilator 40 12/24/18 10:42 92 23 40 12/24/18 10:37 100.0 12/24/18 10:30 119 22 90/69 (76) 97 12/24/18 10:15 89 24 138/73 (94) 93 12/24/18 10:00 95 23 136/84 (101) 95 12/24/18 09:45 86 24 133/87 (102) 91 12/24/18 09:30 92 24 130/76 (94) 96 12/24/18 09:15 89 24 137/71 (93) 96 12/24/18 09:00 20 Mechanical Ventilator 40 12/24/18 09:00 90 24 139/76 (97) 94 12/24/18 08:51 90 24 40 12/24/18 08:51 87 12/24/18 08:45 95 24 129/84 (99) 93 12/24/18 08:30 102 21 151/89 (109) 92 12/24/18 08:15 109 24 155/77 (103) 95 12/24/18 08:00 Mechanical Ventilator 12/24/18 08:00 20 Mechanical Ventilator 40 12/24/18 08:00 100.0 88 24 145/86 (105) 99 12/24/18 08:00 40 12/24/18 07:45 89 24 151/86 (107) 98 12/24/18 07:37 89 12/24/18 07:36 90 24 99 Mechanical Ventilator 40 12/24/18 07:30 99 9 161/96 (117) 12/24/18 07:30 24 95 12/24/18 07:29 94 24 100 Mechanical Ventilator 40 12/24/18 07:29 91 24 40 12/24/18 07:00 83 24 143/71 (95) 95 12/24/18 07:00 20 Mechanical Ventilator 40 12/24/18 06:45 92 24 143/72 (95) 94 12/24/18 06:30 89 24 138/76 (96) 93 12/24/18 06:00 94 24 123/108 (113) 97 12/24/18 06:00 20 Mechanical Ventilator 30 12/24/18 05:45 90 24 123/108 (113) 98 12/24/18 05:40 20 Mechanical Ventilator 30 12/24/18 05:07 90 24 40 12/24/18 05:00 102 24 151/79 (103) 12/24/18 04:00 Mechanical Ventilator 12/24/18 04:00 99.1 91 24 161/89 (113) 97 12/24/18 04:00 40 12/24/18 04:00 99 12/24/18 03:01 96 24 99 Mechanical Ventilator 40 12/24/18 03:00 92 24 137/71 (93) 12/24/18 02:54 99 25 40 12/24/18 02:53 98 25 97 Mechanical Ventilator 40 12/24/18 02:00 95 24 134/75 (94) 96 12/24/18 01:00 94 24 139/72 (94) 95 12/24/18 00:52 97 24 40 12/24/18 00:00 Mechanical Ventilator 12/24/18 00:00 99.2 100 24 127/70 (89) 97 12/24/18 00:00 91 12/24/18 00:00 40 12/23/18 23:00 92 24 120/67 (84) 93 12/23/18 22:47 94 24 97 Mechanical Ventilator 40 12/23/18 22:36 86 24 96 Mechanical Ventilator 40 12/23/18 22:35 92 24 40 12/23/18 22:30 92 23 116/70 (85) 93 12/23/18 22:00 96 24 125/72 (89) 96 Micro: Microbiology Date/Time Source Procedure Growth Status 12/22/18 13:00 Indwelling Cath Urine Culture - Preliminary NO GROWTH AFTER 24 HOURS Resulted Accucheck: 146 Critical Care - Subjective ROS Limited/Unobtainable: No FI02: 40 Vent Support Breath Rate: 24 Vent Support Mode: AC Vent Tidal Volume: 550 Sputum Amount: Moderate PEEP: 5.0 PIP: 35 Tube Feeding Amount: 40 I&O: Intake and Output 12/23/18 12/24/18 19:00 07:00 Intake Total 1873.0 ml 470 ml Output Total 420 ml 340 ml Balance 1453.0 ml 130 ml Free Water 100 ml 90 ml IV Total 1453.0 ml 20 ml Tube Feeding 320 ml 360 ml Output Urine Total 420 ml 340 ml ET-Tube: 7.0 ET Position: 20 Kevan Monsalve MD Dec 24, 2018 21:44
--- NOTE | 2018-12-24 21:58 | General Progress Note ---
Assessment/Plan Problem List: (1) Opioid dependence ICD Codes: F11.20 - Opioid dependence, uncomplicated SNOMED: 77393320 (2) Altered level of consciousness ICD Codes: R40.4 - Transient alteration of awareness SNOMED: 9479680 (3) Back pain ICD Codes: M54.9 - Dorsalgia, unspecified SNOMED: 787323408 (4) Opiate dependence ICD Codes: F11.20 - Opioid dependence, uncomplicated SNOMED: 61077161 (5) Depression ICD Codes: F32.9 - Major depressive disorder, single episode, unspecified SNOMED: 98721173 (6) Peripheral edema ICD Codes: R60.9 - Edema, unspecified SNOMED: 786659118 (7) Leg pain ICD Codes: M79.606 - Pain in leg, unspecified SNOMED: 44502185 (8) Headache ICD Codes: R51 - Headache SNOMED: 27483792 (9) COPD exacerbation ICD Codes: J44.1 - Chronic obstructive pulmonary disease with (acute) exacerbation SNOMED: 827229194 (10) Psychosis ICD Codes: F29 - Unsp psychosis not due to a substance or known physiol cond SNOMED: 21436623 (11) Respiratory failure ICD Codes: J96.90 - Respiratory failure, unspecified, unspecified whether with hypoxia or hypercapnia SNOMED: 972258115 (12) Salicylate overdose ICD Codes: T39.091A - Poisoning by salicylates, accidental (unintentional), initial encounter SNOMED: 656589817, 3566637 (13) Asthma ICD Codes: J45.909 - Unspecified asthma, uncomplicated SNOMED: 626802186, 0571200 (14) Anemia ICD Codes: D64.9 - Anemia, unspecified SNOMED: 580527852 Status: progressing, unchanged Assessment/Plan: respiratory failure afebrile obesity s/p o/d? dependence? lyte abnormality no wheezing decrease levels Subjective ROS Limited/Unobtainable: Yes Allergies: Coded Allergies: No Known Allergies (Unverified , 11/07/13) Objective Last 24 Hour Vital Signs Date Time Temp Pulse Resp B/P (MAP) Pulse Ox O2 Delivery O2 Flow Rate FiO2 12/24/18 21:16 89 24 40 12/24/18 19:13 88 24 94 Mechanical Ventilator 40 88 24 40 12/24/18 19:12 83 24 94 Mechanical Ventilator 40 8/23/19 19:00 79 24 139/76 (97) 94 12/24/18 18:31 24 Mechanical Ventilator 12/24/18 18:30 81 24 147/75 (99) 95 12/24/18 18:00 106 24 142/83 (102) 97 12/24/18 18:00 23 Mechanical Ventilator 40 12/24/18 17:45 86 24 131/74 (93) 100 12/24/18 17:30 20 Mechanical Ventilator 40 12/24/18 17:30 117 25 151/78 (102) 95 12/24/18 17:01 93 24 40 12/24/18 17:00 24 Mechanical Ventilator 40 12/24/18 17:00 97 24 151/77 (101) 96 12/24/18 16:45 116 23 153/83 (106) 96 12/24/18 16:30 84 24 160/76 (104) 94 12/24/18 16:20 21 Mechanical Ventilator 40 12/24/18 16:00 40 12/24/18 16:00 99.6 86 24 143/85 (104) 95 12/24/18 16:00 Mechanical Ventilator 12/24/18 16:00 21 Mechanical Ventilator 40 12/24/18 15:56 92 12/24/18 15:30 86 24 96 Mechanical Ventilator 40 12/24/18 15:30 84 24 141/68 (92) 95 12/24/18 15:23 91 24 96 Mechanical Ventilator 40 12/24/18 15:23 91 24 40 12/24/18 15:00 20 Mechanical Ventilator 40 12/24/18 15:00 120 22 162/91 (114) 94 12/24/18 14:30 99 24 145/87 (106) 96 12/24/18 14:20 21 Mechanical Ventilator 40 12/24/18 14:00 90 24 139/77 (97) 95 12/24/18 14:00 20 Mechanical Ventilator 40 12/24/18 13:30 86 24 128/71 (90) 94 12/24/18 13:20 21 Mechanical Ventilator 40 12/24/18 13:00 94 23 138/71 (93) 93 12/24/18 12:50 91 24 40 12/24/18 12:42 24 Mechanical Ventilator 40 12/24/18 12:30 99 24 127/75 (92) 95 12/24/18 12:28 91 24 99 Mechanical Ventilator 40 12/24/18 12:20 91 24 100 Mechanical Ventilator 40 12/24/18 12:00 Mechanical Ventilator 12/24/18 12:00 40 12/24/18 12:00 99.7 89 24 130/68 (88) 94 12/24/18 11:30 101 23 148/95 (112) 91 12/24/18 11:26 94 12/24/18 11:00 99 24 122/109 (113) 100 12/24/18 11:00 20 Mechanical Ventilator 40 12/24/18 10:42 92 23 40 12/24/18 10:37 100.0 12/24/18 10:30 119 22 90/69 (76) 97 12/24/18 10:15 89 24 138/73 (94) 93 12/24/18 10:00 95 23 136/84 (101) 95 12/24/18 09:45 86 24 133/87 (102) 91 12/24/18 09:30 92 24 130/76 (94) 96 12/24/18 09:15 89 24 137/71 (93) 96 12/24/18 09:00 20 Mechanical Ventilator 40 12/24/18 09:00 90 24 139/76 (97) 94 12/24/18 08:51 90 24 40 12/24/18 08:51 87 12/24/18 08:45 95 24 129/84 (99) 93 12/24/18 08:30 102 21 151/89 (109) 92 12/24/18 08:15 109 24 155/77 (103) 95 12/24/18 08:00 Mechanical Ventilator 12/24/18 08:00 20 Mechanical Ventilator 40 12/24/18 08:00 100.0 88 24 145/86 (105) 99 12/24/18 08:00 40 12/24/18 07:45 89 24 151/86 (107) 98 12/24/18 07:37 89 12/24/18 07:36 90 24 99 Mechanical Ventilator 40 12/24/18 07:30 99 9 161/96 (117) 12/24/18 07:30 24 95 12/24/18 07:29 94 24 100 Mechanical Ventilator 40 12/24/18 07:29 91 24 40 12/24/18 07:00 83 24 143/71 (95) 95 8/23/19 07:00 20 Mechanical Ventilator 40 12/24/18 06:45 92 24 143/72 (95) 94 12/24/18 06:30 89 24 138/76 (96) 93 12/24/18 06:00 94 24 123/108 (113) 97 12/24/18 06:00 20 Mechanical Ventilator 30 12/24/18 05:45 90 24 123/108 (113) 98 12/24/18 05:40 20 Mechanical Ventilator 30 12/24/18 05:07 90 24 40 12/24/18 05:00 102 24 151/79 (103) 12/24/18 04:00 Mechanical Ventilator 12/24/18 04:00 99.1 91 24 161/89 (113) 97 12/24/18 04:00 40 12/24/18 04:00 99 12/24/18 03:01 96 24 99 Mechanical Ventilator 40 12/24/18 03:00 92 24 137/71 (93) 12/24/18 02:54 99 25 40 12/24/18 02:53 98 25 97 Mechanical Ventilator 40 12/24/18 02:00 95 24 134/75 (94) 96 12/24/18 01:00 94 24 139/72 (94) 95 12/24/18 00:52 97 24 40 12/24/18 00:00 Mechanical Ventilator 12/24/18 00:00 99.2 100 24 127/70 (89) 97 12/24/18 00:00 91 12/24/18 00:00 40 12/23/18 23:00 92 24 120/67 (84) 93 12/23/18 22:47 94 24 97 Mechanical Ventilator 40 12/23/18 22:36 86 24 96 Mechanical Ventilator 40 12/23/18 22:35 92 24 40 12/23/18 22:30 92 23 116/70 (85) 93 12/23/18 22:00 96 24 125/72 (89) 96 Intake and Output 12/23/18 12/24/18 19:00 07:00 Intake Total 1873.0 ml 470 ml Output Total 420 ml 340 ml Balance 1453.0 ml 130 ml Free Water 100 ml 90 ml IV Total 1453.0 ml 20 ml Tube Feeding 320 ml 360 ml Output Urine Total 420 ml 340 ml Laboratory Tests 12/24/18 03:05: White Blood Count 16.8H, Red Blood Count 3.86L, Hemoglobin 11.9L, Hematocrit 37.0, Mean Corpuscular Volume 96, Mean Corpuscular Hemoglobin 30.8, Mean Corpuscular Hemoglobin Concent 32.1, Red Cell Distribution Width 14.8, Platelet Count 258, Mean Platelet Volume 4.7L, Neutrophils (%) (Auto) 76.8H, Lymphocytes (%) (Auto) 13.3L, Monocytes (%) (Auto) 8.8, Eosinophils (%) (Auto) 0.0, Basophils (%) (Auto) 1.1, Sodium Level 142, Potassium Level 3.3L, Chloride Level 105, Carbon Dioxide Level 27, Anion Gap 10, Blood Urea Nitrogen 12, Creatinine 1.0, Estimat Glomerular Filtration Rate > 60, Glucose Level 136H, Uric Acid 1.7L, Calcium Level 8.6, Phosphorus Level 2.3L, Magnesium Level 2.5H, Total Bilirubin 0.3, Gamma Glutamyl Transpeptidase 27, Aspartate Amino Transf ( AST/SGOT) 180H, Alanine Aminotransferase (ALT/SGPT) 80H, Alkaline Phosphatase 73 , Total Creatine Kinase 7451H, Total Protein 7.0, Albumin 3.1L, Globulin 3.9, Albumin/Globulin Ratio 0.8L Height (Feet): 5 Height (Inches): 9.00 Weight (Pounds): 310 Cardiovascular: normal rate Respiratory/Chest: lungs clear Abdomen: soft Jasmine Joe MD Dec 24, 2018 21:58
[2018-12-24] MEDS: fentaNYL Citrate 2500mcg in NS 250ml IV SCH (22:44)
--- NOTE | 2018-12-24 23:00 | NUR ---
NURSE NOTES: Patient asleep. Tolerating feeding. Afebrile.
[2018-12-25] VITALS (67 sets, daily range): BP systolic 114–171; BP diastolic 59–131
--- NOTE | 2018-12-25 01:00 | NUR ---
NURSE NOTES: Patient asleep. Vital signs stable.
--- NOTE | 2018-12-25 03:00 | Progress Note ---
DATE: 12/24/2018 SUBJECTIVE: The patient is still having waxing and waning consciousness respond by nodding has episodes of agitation. MENTAL STATUS EXAMINATION: The patient is alert, oriented times self. She knows she is in the hospital. Mood is agitated. Affect is flat. Thought process is concrete. Thought content, no suicidal or homicidal ideation. Cognition is impaired. ASSESSMENT: This patient is not at imminent danger to self. We will reassess when the patient is extubated and more alert. Laurie Canchola M.D. DR: ANDRY JOB#: [id number] CC: JACQUIE
[2018-12-25] MEDS: Acetylcysteine 20% Soln 4ml HHN SCH ×6 (03:08→23:15)
[2018-12-25] MEDS: Albuterol/Ipratropium 3ml neb HHN SCH ×6 (03:08→23:15)
--- NOTE | 2018-12-25 03:30 | NUR ---
NURSE NOTES: Bed bath, oral care, change of linens done. Patient tolerated activity.
--- NOTE | 2018-12-25 04:00 | NUR ---
NURSE NOTES: Fentanyl turned off at this time, tube feeding witheld at this time for possible weaning in the morning.
--- NOTE | 2018-12-25 04:30 | NUR ---
NURSE NOTES: Patient started to get restless and agitated. PRN ativan given, Fentanyl restarted at 240mcg/hr
[2018-12-25] MEDS: LORazepam Inj 2mg/ml 1ml IV PRN ×2 (04:32→09:59)
[2018-12-25] MEDS: Solu-MEDROL 125mg Inj IVP SCH ×3 (05:47→17:13)
[2018-12-25] MEDS: NovoLOG Insulin Flexpen SUBQ SCH ×3 (05:47→17:15)
--- NOTE | 2018-12-25 05:48 | NUR ---
NURSE NOTES: Patient calm at this time. Fentanyl at 200 mcg/hr
--- NOTE | 2018-12-25 06:00 | NUR ---
NURSE NOTES: Received $100.00 from day shift nurse. Endorsed to Nurse Log Yard Manager with the Hospital security, sealed in a bag to be placed in the hospital safe. Receipt attached at patient's chart
--- NOTE | 2018-12-25 06:46 | NUR ---
NURSE NOTES: Dr. Monsalve seen and examined the patient. With new orders made. Informed morning shift RT present in the unit.
--- NOTE | 2018-12-25 07:11 | NUR ---
HAND-OFF: Report given to CLARENCE Farmer.
--- NOTE | 2018-12-25 07:12 | NUR ---
NURSE NOTES: RECEIVED PATIENT FROM Felicitas URRUTIA RN. PATIENT IS SEEN LYING IN BED, STILL SEDATED. ON FENTANYL DRIP AT 200MCG/HR FOLLOWING HOSPITAL PROTOCOL. HOOKED TO POULTRY PACKER. ORALLY INTUBATED, ETT 7.5 AT 21CM LIP LINE, VENT SETTINGS AC 24, TV 550, FiO2 40%, PEEP 5. NO SIGNS OF DISTRESS OF THE MOMENT. NOTED OGT. TUBE FEEDING RUNNING GLUCERNA 1.2 AT 40ML/HR BUT HELD FOR NOW DUE TO WEANING. GOOD CONNECTED TO BAG, PATENT AND DRAINING URINE. IVS ON R H G20 AND L AC G20, IVF TO TKO. NOTED BW RESTRAINTS DUE TO PULLING ETT AND TRYING TO GET OUT OF THE BED. SIDE RAILS UP. CALL LIGHT WITHIN REACH. WILL CONTINUE TO MONITOR.
--- NOTE | 2018-12-25 07:15 | NUR ---
NURSE NOTES: STARTED TO TITRAT FENTANYL DRIP FOR WEANING. PATIENT IS STILL DROWSY. NO SIGNS OF DISTRESS OF THE MOMENT. WILL CONTINUE TO MONITOR.
[2018-12-25 07:17] LABS: BASOPHILS % (AUTO) 0.6 % (0.0-2.0); HEMATOCRIT 35.3 % (37.0-47.0); HEMOGLOBIN 11.4 G/DL (12.0-16.0); LYMPHOCYTES % (AUTO) 11.3 % (20.0-45.0); MEAN CORPUSCULAR VOLUME 96 FL (80-99); MONOCYTES % (AUTO) 7.4 % (1.0-10.0); NEUTROPHILS % (AUTO) 80.7 % (45.0-75.0); PLATELET COUNT 273 K/UL (150-450); RED BLOOD COUNT 3.67 M/UL (4.20-5.40); RED CELL DISTRIBUTION WIDTH 14.8 % (11.6-14.8); WHITE BLOOD COUNT 16.7 K/UL (4.8-10.8)
[2018-12-25 07:47] LABS: ALANINE AMINOTRANSFERASE 77 U/L (12-78); ALBUMIN 2.9 G/DL (3.4-5.0); ALBUMIN/GLOBULIN RATIO 0.8 (1.0-2.7); ALKALINE PHOSPHATASE 63 U/L (46-116); ANION GAP 9 mmol/L (5-15); ASPARTATE AMINO TRANSFERASE 99 U/L (15-37); BILIRUBIN,TOTAL 0.3 MG/DL (0.2-1.0); BLOOD UREA NITROGEN 16 mg/dL (7-18); CALCIUM 8.4 MG/DL (8.5-10.1); CARBON DIOXIDE 27 MMOL/L (21-32); CHLORIDE 108 MMOL/L (98-107); POTASSIUM 3.5 MMOL/L (3.5-5.1); SODIUM 144 MMOL/L (136-145)
[2018-12-25 07:59] LABS: PHOSPHORUS 3.1 MG/DL (2.5-4.9)
--- NOTE | 2018-12-25 08:15 | NUR ---
NURSE NOTES: FENTANYL TURNED OFF DUE TO SVT. FOR WEANING TRIAL AFTER AN HOUR. PATIENT MADE AWARE AND WAS RESPONSIVE.
--- NOTE | 2018-12-25 08:40 | NUR ---
RESPIRATORY NOTE: Cuff Leak Test performed per MD. On ordered A/C vent settings, with the cuff inflated, tidal volume is 552. With cuff deflated, tidal volume is 505. RSBI was at 62. RN notified of results.
[2018-12-25] MEDS ORDERED: Sodium Chloride for KCL Premix x 2hrs IV SCH (09:00)
--- NOTE | 2018-12-25 09:30 | NUR ---
NURSE NOTES: WEANING TRIAL FAILED. RSBI . 60, CUFF LEAK TEST TV 500. BACK ON AC MODE. PATIENT NOTED TO BE AGITATED. NO SIGNS OF DISTRESS. WILL CONTINUE TO MONITOR.
[2018-12-25] MEDS: Pantoprazole Inj IVP SCH ×2 (10:00→21:07)
--- NOTE | 2018-12-25 12:00 | NUR ---
NURSE NOTES: INCREASED FiO2 TO 50% DUE TO TACHYPNEA. NO SIGNS OF DISTRESS OF THE MOMENT. WILL CONTINUE TO MONITOR.
--- NOTE | 2018-12-25 13:13 | NUR ---
NURSE NOTES: INCREASED FiO2 TO 70% DUE TO INCREASED RR. PATIENT I SLIGHTLY SEDATED. NO SIGNS OF DISTRESS. WILL CONTINUE TO MONITOR.
[2018-12-25] MEDS: fentaNYL Citrate 2500mcg in NS 250ml IV SCH ×2 (13:29→23:22)
--- NOTE | 2018-12-25 13:36 | NUR ---
NURSE NOTES: POKE WITH DR CARRILLO AND INFORMED OF RBI AND FAILED CUFF LEAK TEST. NEW ORDERS GIVEN.
--- NOTE | 2018-12-25 14:10 | Diagnostic Imaging Report ---
EXAM: XR Chest, 1 View CLINICAL HISTORY: ABN LABS TECHNIQUE: Frontal view of the chest. COMPARISON: No relevant prior studies available. FINDINGS: Lungs: Reduced lung volumes. Retrocardiac atelectasis/consolidation. Accentuation of bronchovascular markings. Pleural space: Blunting of the costophrenic angles No pneumothorax. Heart: Cardiomegaly. Mediastinum: Unremarkable. Bones/joints: No acute fracture. Tubes, lines and devices: Endotracheal tube at the level of the clavicular heads, approximately 6.5 cm above the ursula. Enteric tube directed below the diaphragm. IMPRESSION: 1. Endotracheal tube at the level of the clavicular heads, approximately 6.5 cm above the ursula. 2. Reduced lung volumes. Retrocardiac atelectasis/consolidation. Accentuation of bronchovascular markings. <MYCVCSECTION> Critical Value Communications 12/25/18 14:11 Call Nurse Called CLARENCE Avelar on 12/25 14:10 (-07:00)
--- NOTE | 2018-12-25 14:29 | Pulmonolgy Critical Care Note ---
Critical Care - Asmt/Plan Assessment/Plan: Pulmonary CCM Progress Note HPI Patient is a 58-year-old woman with apparent history of Obstructive Airways Disease, Schizophrenia, Obesity, presented with shortness of breath, increased anxiety. Per ER notes history limited by mental status, being a poor historian. Patient noted to be extremely short of breath requiring intubation in the ED. On mechainical ventilation in the ICU Noted to have elevated ASA level on admission, IVF no DC Increasing FIO2 - CXR ordered, diuresed, failed cuff leak again Physical Exam Vital Signs Noted General Appearance: normal inspection, mildly sedated on the ventilator Head: NCAT ENT: Moist mm, ETT, OGT, JVP not visible Neck: normal inspection, full range of motion, supple, no bony tend Respiratory: normal inspection, no respiratory distress, no retraction, mild wheezing, reduced basal BS Cardiovascular: regular rate, rhythm, Normal HS1, HS2 Gastrointestinal: normal inspection, normal bowel sounds, non tender, soft, no guarding, no hernia Genitourinary: no CVA tenderness Musculoskeletal: normal inspection, moderate edema Neurologic: no focal signs noted, follows commands Impression: Respiratory failure - Hypercapneic and Hypoxic Elevated Salicylate level Pneumonia Possible Congestive Heart Failure Salicylate overdose Schizophrenia/Psychosis Asthma Obesity Plan: ACV Vt 550 P5 Adjust FIO2 sats 90-94%, wean as tolerated IV Antibiotics per ID IV Solumedrol HHN Wean as tolerated [employer] med PRN Sedation BLE dupplex PPX IV alkalinized fluids - reduce OGT feeding advance Labs Noted Test 12/21/18 10:45 White Blood Count 8.8 K/UL (4.8-10.8) Red Blood Count 4.10 M/UL (4.20-5.40) Hemoglobin 12.7 G/DL (12.0-16.0) Hematocrit 39.3 % (37.0-47.0) Mean Corpuscular Volume 96 FL (80-99) Mean Corpuscular Hemoglobin 30.9 PG (27.0-31.0) Mean Corpuscular Hemoglobin Concent 32.2 G/DL (32.0-36.0) Red Cell Distribution Width 14.7 % (11.6-14.8) Platelet Count 292 K/UL (150-450) Mean Platelet Volume 5.0 FL (6.5-10.1) Neutrophils (%) (Auto) 50.2 % (45.0-75.0) Lymphocytes (%) (Auto) 41.4 % (20.0-45.0) Monocytes (%) (Auto) 6.2 % (1.0-10.0) Eosinophils (%) (Auto) 0.2 % (0.0-3.0) Basophils (%) (Auto) 2.0 % (0.0-2.0) Sodium Level 142 MMOL/L (136-145) Potassium Level 4.0 MMOL/L (3.5-5.1) Chloride Level 110 MMOL/L (98-107) Carbon Dioxide Level 20 MMOL/L (21-32) Anion Gap 12 mmol/L (5-15) Blood Urea Nitrogen 11 mg/dL (7-18) Creatinine 1.0 MG/DL (0.55-1.30) Estimat Glomerular Filtration Rate > 60 mL/min (>60) Glucose Level 90 MG/DL (74-106) Calcium Level 8.5 MG/DL (8.5-10.1) Total Bilirubin 0.3 MG/DL (0.2-1.0) Aspartate Amino Transf (AST/SGOT) 44 U/L (15-37) Alanine Aminotransferase (ALT/SGPT) 58 U/L (12-78) Alkaline Phosphatase 79 U/L (46-116) Troponin I 0.000 ng/mL (0.000-0.056) Total Protein 7.8 G/DL (6.4-8.2) Albumin 3.5 G/DL (3.4-5.0) Globulin 4.3 g/dL Albumin/Globulin Ratio 0.8 (1.0-2.7) Thyroid Stimulating Hormone (TSH) 0.239 uiU/mL (0.358-3.740) Salicylates Level 46.0 ug/mL (2.8-20) Acetaminophen Level < 2 MCG/ML (10-30) Serum Alcohol < 3 mg/dL CXR: ETT appropriate, basal infiltrates, vascular congestion Critical Care - Objective Last 24 Hour Vital Signs Date Time Temp Pulse Resp B/P (MAP) Pulse Ox O2 Delivery O2 Flow Rate FiO2 12/25/18 13:29 24 Mechanical Ventilator 70 12/25/18 13:03 85 24 Mechanical Ventilator 40 12/25/18 13:00 70 12/25/18 13:00 85 24 125/65 (85) 93 12/25/18 12:30 91 24 136/74 (94) 91 12/25/18 12:00 99.9 91 24 123/71 (88) 91 12/25/18 12:00 50 12/25/18 12:00 Mechanical Ventilator 12/25/18 12:00 79 12/25/18 11:30 84 24 134/78 (96) 95 12/25/18 11:30 89 24 97 Mechanical Ventilator 40 91 24 40 12/25/18 11:00 84 24 135/96 (109) 91 12/25/18 10:45 85 24 151/97 (115) 92 12/25/18 10:30 89 23 127/82 (97) 93 12/25/18 10:30 91 24 40 12/25/18 10:00 24 Mechanical Ventilator 50 12/25/18 10:00 94 24 122/64 (83) 94 12/25/18 09:45 118 23 161/131 (141) 91 12/25/18 09:30 24 Mechanical Ventilator 50 12/25/18 09:30 109 24 150/87 (108) 87 12/25/18 09:15 101 24 138/74 (95) 91 12/25/18 09:00 101 24 136/88 (104) 94 12/25/18 08:50 50 12/25/18 08:45 104 24 139/81 (100) 95 12/25/18 08:40 92 12/25/18 08:40 90 24 40 12/25/18 08:30 86 24 123/67 (85) 90 12/25/18 08:30 Mechanical Ventilator 50 12/25/18 08:15 97 24 141/67 (91) 90 12/25/18 08:00 99.6 84 24 124/76 (92) 90 12/25/18 08:00 Mechanical Ventilator 12/25/18 08:00 Mechanical Ventilator 40 12/25/18 08:00 84 12/25/18 08:00 40 12/25/18 07:45 104 23 138/78 (98) 91 12/25/18 07:30 93 24 148/67 (94) 97 12/25/18 07:28 89 24 98 Mechanical Ventilator 40 89 24 40 12/25/18 07:15 76 24 142/72 (95) 93 12/25/18 07:15 Mechanical Ventilator 40 12/25/18 07:00 77 24 122/68 (86) 93 12/25/18 07:00 24 Mechanical Ventilator 40 12/25/18 06:45 77 24 127/67 (87) 93 12/25/18 06:30 81 24 128/70 (89) 93 12/25/18 06:15 79 24 119/66 (83) 92 12/25/18 06:00 77 24 120/70 (87) 92 12/25/18 06:00 24 Mechanical Ventilator 40 12/25/18 05:45 85 24 123/70 (87) 93 12/25/18 05:30 81 24 127/67 (87) 93 12/25/18 05:15 86 24 131/68 (89) 94 12/25/18 05:02 92 24 40 12/25/18 05:00 90 24 122/68 (86) 94 12/25/18 05:00 24 Mechanical Ventilator 40 12/25/18 04:45 92 24 128/72 (90) 95 12/25/18 04:30 24 Mechanical Ventilator 40 12/25/18 04:30 114 20 152/89 (110) 97 12/25/18 04:00 82 12/25/18 04:00 Mechanical Ventilator 12/25/18 04:00 40 12/25/18 04:00 98.7 106 24 144/84 (104) 96 12/25/18 03:30 135 22 124/95 (105) 96 12/25/18 03:08 87 24 98 Mechanical Ventilator 40 92 24 40 12/25/18 03:00 24 Mechanical Ventilator 40 12/25/18 03:00 97 24 145/80 (101) 96 12/25/18 02:30 80 24 125/62 (83) 92 12/25/18 02:00 24 Mechanical Ventilator 40 12/25/18 02:00 78 24 127/70 (89) 93 12/25/18 01:30 81 24 129/64 (85) 92 12/25/18 01:00 80 24 126/69 (88) 93 12/25/18 01:00 24 Mechanical Ventilator 40 12/25/18 00:53 95 24 40 12/25/18 00:30 92 24 130/76 (94) 94 12/25/18 00:00 Mechanical Ventilator 12/25/18 00:00 24 Mechanical Ventilator 40 12/25/18 00:00 99.5 103 24 147/78 (101) 93 12/25/18 00:00 68 12/25/18 00:00 40 12/24/18 23:30 91 24 126/70 (88) 92 12/24/18 23:16 99.1 12/24/18 23:16 108 26 97 Mechanical Ventilator 40 108 26 40 12/24/18 23:00 24 Mechanical Ventilator 40 12/24/18 23:00 90 24 130/74 (92) 93 12/24/18 22:44 24 Mechanical Ventilator 40 12/24/18 22:30 95 23 140/76 (97) 93 12/24/18 22:00 86 24 137/67 (90) 93 12/24/18 22:00 24 Mechanical Ventilator 40 12/24/18 21:30 94 24 164/86 (112) 95 12/24/18 21:16 89 24 40 12/24/18 21:00 24 Mechanical Ventilator 40 12/24/18 21:00 85 24 125/71 (89) 93 12/24/18 20:30 86 24 141/68 (92) 92 12/24/18 20:00 99.1 83 24 132/70 (90) 91 12/24/18 20:00 40 12/24/18 20:00 24 Mechanical Ventilator 40 12/24/18 20:00 Mechanical Ventilator 12/24/18 20:00 65 12/24/18 19:30 108 19 139/78 (98) 90 12/24/18 19:13 88 24 94 Mechanical Ventilator 40 88 24 40 12/24/18 19:12 83 24 94 Mechanical Ventilator 40 12/24/18 19:00 24 Mechanical Ventilator 40 12/24/18 19:00 79 24 139/76 (97) 94 12/24/18 18:31 24 Mechanical Ventilator 12/24/18 18:30 81 24 147/75 (99) 95 12/24/18 18:00 106 24 142/83 (102) 97 12/24/18 18:00 23 Mechanical Ventilator 40 12/24/18 17:45 86 24 131/74 (93) 100 12/24/18 17:30 20 Mechanical Ventilator 40 12/24/18 17:30 117 25 151/78 (102) 95 12/24/18 17:01 93 24 40 12/24/18 17:00 24 Mechanical Ventilator 40 12/24/18 17:00 97 24 151/77 (101) 96 12/24/18 16:45 116 23 153/83 (106) 96 12/24/18 16:30 84 24 160/76 (104) 94 12/24/18 16:20 21 Mechanical Ventilator 40 12/24/18 16:00 40 12/24/18 16:00 99.6 86 24 143/85 (104) 95 12/24/18 16:00 Mechanical Ventilator 12/24/18 16:00 21 Mechanical Ventilator 40 12/24/18 15:56 92 12/24/18 15:30 86 24 96 Mechanical Ventilator 40 12/24/18 15:30 84 24 141/68 (92) 95 12/24/18 15:23 91 24 96 Mechanical Ventilator 40 12/24/18 15:23 91 24 40 12/24/18 15:00 20 Mechanical Ventilator 40 12/24/18 15:00 120 22 162/91 (114) 94 12/24/18 14:30 99 24 145/87 (106) 96 Micro: Microbiology Date/Time Source Procedure Growth Status 12/24/18 12:46 Sputum Gram Stain - Final Resulted 12/24/18 12:46 Sputum Sputum Culture Pending Resulted Accucheck: 142 Critical Care - Subjective ROS Limited/Unobtainable: No FI02: 70 Vent Support Breath Rate: 24 Vent Support Mode: AC Vent Tidal Volume: 550 Sputum Amount: Moderate PEEP: 5.0 PIP: 28 Tube Feeding Amount: 40 I&O: Intake and Output 12/24/18 12/25/18 18:59 06:59 Intake Total 812.0 ml 705 ml Output Total 365 ml 225 ml Balance 447.0 ml 480 ml Free Water 100 ml 30 ml IV Total 392.0 ml 315 ml Tube Feeding 320 ml 360 ml Output Urine Total 365 ml 225 ml ET-Tube: 7.0 ET Position: 20 Kevan Monsalve MD Dec 25, 2018 14:29
--- NOTE | 2018-12-25 14:31 | NUR ---
NURSE NOTES: SPOKE WITH DR CARRILLO RE PLACEMENT OF ETT. INFORMED RT AND CXR TO FOLLOW. WILL CONTINUE TO MONITOR.
--- NOTE | 2018-12-25 14:40 | NUR ---
RESPIRATORY NOTE: Advanced ETT by 2cm per MD order. Previous ETT placement was at 20cm at the lip. After advancement, ETT is now at 22cm at the lip.
--- NOTE | 2018-12-25 14:42 | NUR ---
RADIOLOGY DEPT., CHEST X-RAY DONE.-P.DYE
--- NOTE | 2018-12-25 15:00 | NUR ---
NURSE NOTES: SEEN AND EXAMINED BY DR RAI.
--- NOTE | 2018-12-25 15:12 | Nephrology Progress Note ---
Assessment/Plan Problem List: (1) Salicylate overdose (2) Psychosis (3) Anemia (4) Obesity (5) Hypokalemia (6) Rhabdomyolysis Assessment: high CPK Assessment HypoKalemia Mild Anemia s/p Acidosis resolved Respiratory failure Salicylate overdose Psychosis Asthma Obesity Plan Plan: trial of Lasix Fails weaning K , Mag , Phos supplement as needed no IV fluids weaning as possible taper steroids as possible IV Protonix Resp management per Dr hurt monitor renal parameters Urine studies Subjective ROS Limited/Unobtainable: Yes Objective Objective Last 24 Hour Vital Signs Date Time Temp Pulse Resp B/P (MAP) Pulse Ox O2 Delivery O2 Flow Rate FiO2 12/25/18 14:40 91 24 Mechanical Ventilator 70 12/25/18 13:29 24 Mechanical Ventilator 70 12/25/18 13:03 85 24 Mechanical Ventilator 40 12/25/18 13:00 70 12/25/18 13:00 85 24 125/65 (85) 93 12/25/18 12:30 91 24 136/74 (94) 91 12/25/18 12:00 99.9 91 24 123/71 (88) 91 12/25/18 12:00 50 12/25/18 12:00 Mechanical Ventilator 12/25/18 12:00 79 12/25/18 11:30 84 24 134/78 (96) 95 12/25/18 11:30 89 24 97 Mechanical Ventilator 40 91 24 40 12/25/18 11:00 84 24 135/96 (109) 91 12/25/18 10:45 85 24 151/97 (115) 92 12/25/18 10:30 89 23 127/82 (97) 93 12/25/18 10:30 91 24 40 12/25/18 10:00 24 Mechanical Ventilator 50 12/25/18 10:00 94 24 122/64 (83) 94 12/25/18 09:45 118 23 161/131 (141) 91 12/25/18 09:30 24 Mechanical Ventilator 50 12/25/18 09:30 109 24 150/87 (108) 87 12/25/18 09:15 101 24 138/74 (95) 91 12/25/18 09:00 101 24 136/88 (104) 94 12/25/18 08:50 50 12/25/18 08:45 104 24 139/81 (100) 95 12/25/18 08:40 92 8/24/19 08:40 90 24 40 12/25/18 08:30 86 24 123/67 (85) 90 12/25/18 08:30 Mechanical Ventilator 50 12/25/18 08:15 97 24 141/67 (91) 90 12/25/18 08:00 99.6 84 24 124/76 (92) 90 12/25/18 08:00 Mechanical Ventilator 12/25/18 08:00 Mechanical Ventilator 40 12/25/18 08:00 84 12/25/18 08:00 40 12/25/18 07:45 104 23 138/78 (98) 91 12/25/18 07:30 93 24 148/67 (94) 97 12/25/18 07:28 89 24 98 Mechanical Ventilator 40 89 24 40 12/25/18 07:15 76 24 142/72 (95) 93 12/25/18 07:15 Mechanical Ventilator 40 12/25/18 07:00 77 24 122/68 (86) 93 12/25/18 07:00 24 Mechanical Ventilator 40 12/25/18 06:45 77 24 127/67 (87) 93 12/25/18 06:30 81 24 128/70 (89) 93 12/25/18 06:15 79 24 119/66 (83) 92 12/25/18 06:00 77 24 120/70 (87) 92 12/25/18 06:00 24 Mechanical Ventilator 40 12/25/18 05:45 85 24 123/70 (87) 93 12/25/18 05:30 81 24 127/67 (87) 93 12/25/18 05:15 86 24 131/68 (89) 94 12/25/18 05:02 92 24 40 12/25/18 05:00 90 24 122/68 (86) 94 12/25/18 05:00 24 Mechanical Ventilator 40 12/25/18 04:45 92 24 128/72 (90) 95 12/25/18 04:30 24 Mechanical Ventilator 40 12/25/18 04:30 114 20 152/89 (110) 97 12/25/18 04:00 82 12/25/18 04:00 Mechanical Ventilator 12/25/18 04:00 40 12/25/18 04:00 98.7 106 24 144/84 (104) 96 12/25/18 03:30 135 22 124/95 (105) 96 12/25/18 03:08 87 24 98 Mechanical Ventilator 40 92 24 40 12/25/18 03:00 24 Mechanical Ventilator 40 12/25/18 03:00 97 24 145/80 (101) 96 12/25/18 02:30 80 24 125/62 (83) 92 12/25/18 02:00 24 Mechanical Ventilator 40 12/25/18 02:00 78 24 127/70 (89) 93 12/25/18 01:30 81 24 129/64 (85) 92 12/25/18 01:00 80 24 126/69 (88) 93 12/25/18 01:00 24 Mechanical Ventilator 40 12/25/18 00:53 95 24 40 12/25/18 00:30 92 24 130/76 (94) 94 12/25/18 00:00 Mechanical Ventilator 12/25/18 00:00 24 Mechanical Ventilator 40 12/25/18 00:00 99.5 103 24 147/78 (101) 93 12/25/18 00:00 68 12/25/18 00:00 40 12/24/18 23:30 91 24 126/70 (88) 92 12/24/18 23:16 99.1 12/24/18 23:16 108 26 97 Mechanical Ventilator 40 108 26 40 12/24/18 23:00 24 Mechanical Ventilator 40 12/24/18 23:00 90 24 130/74 (92) 93 12/24/18 22:44 24 Mechanical Ventilator 40 12/24/18 22:30 95 23 140/76 (97) 93 12/24/18 22:00 86 24 137/67 (90) 93 12/24/18 22:00 24 Mechanical Ventilator 40 12/24/18 21:30 94 24 164/86 (112) 95 12/24/18 21:16 89 24 40 12/24/18 21:00 24 Mechanical Ventilator 40 12/24/18 21:00 85 24 125/71 (89) 93 12/24/18 20:30 86 24 141/68 (92) 92 12/24/18 20:00 99.1 83 24 132/70 (90) 91 12/24/18 20:00 40 12/24/18 20:00 24 Mechanical Ventilator 40 12/24/18 20:00 Mechanical Ventilator 12/24/18 20:00 65 12/24/18 19:30 108 19 139/78 (98) 90 12/24/18 19:13 88 24 94 Mechanical Ventilator 40 88 24 40 12/24/18 19:12 83 24 94 Mechanical Ventilator 40 12/24/18 19:00 24 Mechanical Ventilator 40 12/24/18 19:00 79 24 139/76 (97) 94 12/24/18 18:31 24 Mechanical Ventilator 12/24/18 18:30 81 24 147/75 (99) 95 12/24/18 18:00 106 24 142/83 (102) 97 12/24/18 18:00 23 Mechanical Ventilator 40 12/24/18 17:45 86 24 131/74 (93) 100 12/24/18 17:30 20 Mechanical Ventilator 40 12/24/18 17:30 117 25 151/78 (102) 95 12/24/18 17:01 93 24 40 12/24/18 17:00 24 Mechanical Ventilator 40 12/24/18 17:00 97 24 151/77 (101) 96 12/24/18 16:45 116 23 153/83 (106) 96 12/24/18 16:30 84 24 160/76 (104) 94 12/24/18 16:20 21 Mechanical Ventilator 40 12/24/18 16:00 40 12/24/18 16:00 99.6 86 24 143/85 (104) 95 12/24/18 16:00 Mechanical Ventilator 12/24/18 16:00 21 Mechanical Ventilator 40 12/24/18 15:56 92 12/24/18 15:30 86 24 96 Mechanical Ventilator 40 12/24/18 15:30 84 24 141/68 (92) 95 12/24/18 15:23 91 24 96 Mechanical Ventilator 40 12/24/18 15:23 91 24 40 Intake and Output 12/24/18 12/25/18 18:59 06:59 Intake Total 812.0 ml 705 ml Output Total 365 ml 225 ml Balance 447.0 ml 480 ml Free Water 100 ml 30 ml IV Total 392.0 ml 315 ml Tube Feeding 320 ml 360 ml Output Urine Total 365 ml 225 ml Laboratory Tests 12/25/18 06:30: White Blood Count 16.7H, Red Blood Count 3.67L, Hemoglobin 11.4L, Hematocrit 35.3L, Mean Corpuscular Volume 96, Mean Corpuscular Hemoglobin 31.2H, Mean Corpuscular Hemoglobin Concent 32.4, Red Cell Distribution Width 14.8, Platelet Count 273, Mean Platelet Volume 5.5L, Neutrophils (%) (Auto) 80.7H, Lymphocytes (%) (Auto) 11.3L, Monocytes (%) (Auto) 7.4, Eosinophils (%) (Auto) 0.0, Basophils (%) (Auto) 0.6, Sodium Level 144, Potassium Level 3.5, Chloride Level 108H, Carbon Dioxide Level 27, Anion Gap 9, Blood Urea Nitrogen 16, Creatinine 1.0, Estimat Glomerular Filtration Rate > 60, Glucose Level 157H, Uric Acid 2.2L , Calcium Level 8.4L, Phosphorus Level 3.1, Magnesium Level 2.6H, Total Bilirubin 0.3, Aspartate Amino Transf (AST/SGOT) 99H, Alanine Aminotransferase ( ALT/SGPT) 77, Alkaline Phosphatase 63, C-Reactive Protein, Quantitative 1.7H, Pro-B-Type Natriuretic Peptide 65, Total Protein 6.4, Albumin 2.9L, Globulin 3.5 , Albumin/Globulin Ratio 0.8L Height (Feet): 5 Height (Inches): 9.00 Weight (Pounds): 310 General Appearance: no apparent distress EENT: other - vented Respiratory/Chest: decreased breath sounds Abdomen: distended Jerzy Boudreaux MD Dec 25, 2018 15:12
--- NOTE | 2018-12-25 15:16 | NUR ---
NURSE NOTES: ETT ADVANCED TO 2CM. CXR OBTAINED. RESULTS TO FOLLOW. NO SIGNS OF DISTRESS OF THE MOMENT. WILL CONTINUE TO MONITOR.
--- NOTE | 2018-12-25 15:16 | NUR ---
RADIOLOGY DEPT., CHEST X-RAY FOR MALPOSITIONED ETT PLMT IMAGED.-P.DYE
--- NOTE | 2018-12-25 15:17 | General Progress Note ---
Assessment/Plan Problem List: (1) Opioid dependence ICD Codes: F11.20 - Opioid dependence, uncomplicated SNOMED: 36802014 (2) Altered level of consciousness ICD Codes: R40.4 - Transient alteration of awareness SNOMED: 2475778 (3) Back pain ICD Codes: M54.9 - Dorsalgia, unspecified SNOMED: 182084992 (4) Opiate dependence ICD Codes: F11.20 - Opioid dependence, uncomplicated SNOMED: 22370432 (5) Depression ICD Codes: F32.9 - Major depressive disorder, single episode, unspecified SNOMED: 14658217 (6) Peripheral edema ICD Codes: R60.9 - Edema, unspecified SNOMED: 519878654 (7) Leg pain ICD Codes: M79.606 - Pain in leg, unspecified SNOMED: 13722684 (8) Headache ICD Codes: R51 - Headache SNOMED: 73484258 (9) COPD exacerbation ICD Codes: J44.1 - Chronic obstructive pulmonary disease with (acute) exacerbation SNOMED: 007031657 (10) Psychosis ICD Codes: F29 - Unsp psychosis not due to a substance or known physiol cond SNOMED: 92844518 (11) Respiratory failure ICD Codes: J96.90 - Respiratory failure, unspecified, unspecified whether with hypoxia or hypercapnia SNOMED: 190926333 (12) Salicylate overdose ICD Codes: T39.091A - Poisoning by salicylates, accidental (unintentional), initial encounter SNOMED: 046646523, 6272496 (13) Asthma ICD Codes: J45.909 - Unspecified asthma, uncomplicated SNOMED: 822798151, 1759011 (14) Anemia ICD Codes: D64.9 - Anemia, unspecified SNOMED: 704613926 Status: progressing, unchanged Assessment/Plan: respiratory failure afebrile obesity r/o pna sepsis reviewed chart nad lab and meds no wheezing afebrile Subjective ROS Limited/Unobtainable: Yes Allergies: Coded Allergies: No Known Allergies (Unverified , 11/07/13) Objective Last 24 Hour Vital Signs Date Time Temp Pulse Resp B/P (MAP) Pulse Ox O2 Delivery O2 Flow Rate FiO2 12/25/18 14:40 91 24 Mechanical Ventilator 70 12/25/18 13:29 24 Mechanical Ventilator 70 12/25/18 13:03 85 24 Mechanical Ventilator 40 12/25/18 13:00 70 12/25/18 13:00 85 24 125/65 (85) 93 12/25/18 12:30 91 24 136/74 (94) 91 12/25/18 12:00 99.9 91 24 123/71 (88) 91 12/25/18 12:00 50 12/25/18 12:00 Mechanical Ventilator 12/25/18 12:00 79 12/25/18 11:30 84 24 134/78 (96) 95 12/25/18 11:30 89 24 97 Mechanical Ventilator 40 91 24 40 12/25/18 11:00 84 24 135/96 (109) 91 12/25/18 10:45 85 24 151/97 (115) 92 12/25/18 10:30 89 23 127/82 (97) 93 12/25/18 10:30 91 24 40 12/25/18 10:00 24 Mechanical Ventilator 50 12/25/18 10:00 94 24 122/64 (83) 94 12/25/18 09:45 118 23 161/131 (141) 91 12/25/18 09:30 24 Mechanical Ventilator 50 12/25/18 09:30 109 24 150/87 (108) 87 12/25/18 09:15 101 24 138/74 (95) 91 12/25/18 09:00 101 24 136/88 (104) 94 12/25/18 08:50 50 12/25/18 08:45 104 24 139/81 (100) 95 12/25/18 08:40 92 12/25/18 08:40 90 24 40 12/25/18 08:30 86 24 123/67 (85) 90 12/25/18 08:30 Mechanical Ventilator 50 12/25/18 08:15 97 24 141/67 (91) 90 12/25/18 08:00 99.6 84 24 124/76 (92) 90 12/25/18 08:00 Mechanical Ventilator 12/25/18 08:00 Mechanical Ventilator 40 12/25/18 08:00 84 12/25/18 08:00 40 12/25/18 07:45 104 23 138/78 (98) 91 12/25/18 07:30 93 24 148/67 (94) 97 12/25/18 07:28 89 24 98 Mechanical Ventilator 40 89 24 40 12/25/18 07:15 76 24 142/72 (95) 93 12/25/18 07:15 Mechanical Ventilator 40 12/25/18 07:00 77 24 122/68 (86) 93 12/25/18 07:00 24 Mechanical Ventilator 40 12/25/18 06:45 77 24 127/67 (87) 93 12/25/18 06:30 81 24 128/70 (89) 93 12/25/18 06:15 79 24 119/66 (83) 92 12/25/18 06:00 77 24 120/70 (87) 92 12/25/18 06:00 24 Mechanical Ventilator 40 12/25/18 05:45 85 24 123/70 (87) 93 12/25/18 05:30 81 24 127/67 (87) 93 12/25/18 05:15 86 24 131/68 (89) 94 12/25/18 05:02 92 24 40 12/25/18 05:00 90 24 122/68 (86) 94 12/25/18 05:00 24 Mechanical Ventilator 40 12/25/18 04:45 92 24 128/72 (90) 95 12/25/18 04:30 24 Mechanical Ventilator 40 12/25/18 04:30 114 20 152/89 (110) 97 12/25/18 04:00 82 12/25/18 04:00 Mechanical Ventilator 12/25/18 04:00 40 12/25/18 04:00 98.7 106 24 144/84 (104) 96 12/25/18 03:30 135 22 124/95 (105) 96 12/25/18 03:08 87 24 98 Mechanical Ventilator 40 92 24 40 12/25/18 03:00 24 Mechanical Ventilator 40 12/25/18 03:00 97 24 145/80 (101) 96 12/25/18 02:30 80 24 125/62 (83) 92 12/25/18 02:00 24 Mechanical Ventilator 40 12/25/18 02:00 78 24 127/70 (89) 93 12/25/18 01:30 81 24 129/64 (85) 92 12/25/18 01:00 80 24 126/69 (88) 93 12/25/18 01:00 24 Mechanical Ventilator 40 12/25/18 00:53 95 24 40 12/25/18 00:30 92 24 130/76 (94) 94 8/24/19 00:00 Mechanical Ventilator 12/25/18 00:00 24 Mechanical Ventilator 40 12/25/18 00:00 99.5 103 24 147/78 (101) 93 12/25/18 00:00 68 12/25/18 00:00 40 12/24/18 23:30 91 24 126/70 (88) 92 12/24/18 23:16 99.1 12/24/18 23:16 108 26 97 Mechanical Ventilator 40 108 26 40 12/24/18 23:00 24 Mechanical Ventilator 40 12/24/18 23:00 90 24 130/74 (92) 93 12/24/18 22:44 24 Mechanical Ventilator 40 12/24/18 22:30 95 23 140/76 (97) 93 12/24/18 22:00 86 24 137/67 (90) 93 12/24/18 22:00 24 Mechanical Ventilator 40 12/24/18 21:30 94 24 164/86 (112) 95 12/24/18 21:16 89 24 40 12/24/18 21:00 24 Mechanical Ventilator 40 12/24/18 21:00 85 24 125/71 (89) 93 12/24/18 20:30 86 24 141/68 (92) 92 12/24/18 20:00 99.1 83 24 132/70 (90) 91 12/24/18 20:00 40 12/24/18 20:00 24 Mechanical Ventilator 40 12/24/18 20:00 Mechanical Ventilator 12/24/18 20:00 65 12/24/18 19:30 108 19 139/78 (98) 90 12/24/18 19:13 88 24 94 Mechanical Ventilator 40 88 24 40 12/24/18 19:12 83 24 94 Mechanical Ventilator 40 12/24/18 19:00 24 Mechanical Ventilator 40 12/24/18 19:00 79 24 139/76 (97) 94 12/24/18 18:31 24 Mechanical Ventilator 12/24/18 18:30 81 24 147/75 (99) 95 12/24/18 18:00 106 24 142/83 (102) 97 12/24/18 18:00 23 Mechanical Ventilator 40 12/24/18 17:45 86 24 131/74 (93) 100 12/24/18 17:30 20 Mechanical Ventilator 40 12/24/18 17:30 117 25 151/78 (102) 95 12/24/18 17:01 93 24 40 12/24/18 17:00 24 Mechanical Ventilator 40 12/24/18 17:00 97 24 151/77 (101) 96 12/24/18 16:45 116 23 153/83 (106) 96 12/24/18 16:30 84 24 160/76 (104) 94 12/24/18 16:20 21 Mechanical Ventilator 40 12/24/18 16:00 40 12/24/18 16:00 99.6 86 24 143/85 (104) 95 12/24/18 16:00 Mechanical Ventilator 12/24/18 16:00 21 Mechanical Ventilator 40 12/24/18 15:56 92 12/24/18 15:30 86 24 96 Mechanical Ventilator 40 12/24/18 15:30 84 24 141/68 (92) 95 12/24/18 15:23 91 24 96 Mechanical Ventilator 40 12/24/18 15:23 91 24 40 Intake and Output 12/24/18 12/25/18 18:59 06:59 Intake Total 812.0 ml 705 ml Output Total 365 ml 225 ml Balance 447.0 ml 480 ml Free Water 100 ml 30 ml IV Total 392.0 ml 315 ml Tube Feeding 320 ml 360 ml Output Urine Total 365 ml 225 ml Laboratory Tests 12/25/18 06:30: White Blood Count 16.7H, Red Blood Count 3.67L, Hemoglobin 11.4L, Hematocrit 35.3L, Mean Corpuscular Volume 96, Mean Corpuscular Hemoglobin 31.2H, Mean Corpuscular Hemoglobin Concent 32.4, Red Cell Distribution Width 14.8, Platelet Count 273, Mean Platelet Volume 5.5L, Neutrophils (%) (Auto) 80.7H, Lymphocytes (%) (Auto) 11.3L, Monocytes (%) (Auto) 7.4, Eosinophils (%) (Auto) 0.0, Basophils (%) (Auto) 0.6, Sodium Level 144, Potassium Level 3.5, Chloride Level 108H, Carbon Dioxide Level 27, Anion Gap 9, Blood Urea Nitrogen 16, Creatinine 1.0, Estimat Glomerular Filtration Rate > 60, Glucose Level 157H, Uric Acid 2.2L , Calcium Level 8.4L, Phosphorus Level 3.1, Magnesium Level 2.6H, Total Bilirubin 0.3, Aspartate Amino Transf (AST/SGOT) 99H, Alanine Aminotransferase ( ALT/SGPT) 77, Alkaline Phosphatase 63, C-Reactive Protein, Quantitative 1.7H, Pro-B-Type Natriuretic Peptide 65, Total Protein 6.4, Albumin 2.9L, Globulin 3.5 , Albumin/Globulin Ratio 0.8L Height (Feet): 5 Height (Inches): 9.00 Weight (Pounds): 310 Neck: supple Cardiovascular: regular rhythm Respiratory/Chest: lungs clear Abdomen: soft Jasmine Joe MD Dec 25, 2018 15:17
[2018-12-25] MEDS ORDERED: NS 275ml ONE (15:44)
[2018-12-25] MEDS ORDERED: NS 500ML ONE (15:44)
[2018-12-25] MEDS ORDERED: Tubing IV Secondary IV ONE ×2 (15:44→17:33)
--- NOTE | 2018-12-25 15:49 | Diagnostic Imaging Report ---
EXAM: XR Chest, 1 View CLINICAL HISTORY: TUBE PLCMT TECHNIQUE: Frontal view of the chest. COMPARISON: No relevant prior studies available. FINDINGS: Lungs: Retrocardiac atelectasis/consolidation. Pleural space: Blunting the costophrenic angles. No pneumothorax. Heart: Large cardiac silhouette. Mediastinum: Unremarkable. Bones/joints: No acute fracture. Tubes, lines and devices: Endotracheal tube approximate 4.5 cm above the ursula. Enteric tube in the stomach. Other findings: Single view 12/25/18 at 1453. IMPRESSION: Endotracheal tube approximate 4.5 cm above the ursula.
--- NOTE | 2018-12-25 17:00 | NUR ---
NURSE NOTES: PATIENT KEPT CLEAN AND DRY. TOLERATING VENT SETTINGS. STILL ON FENTANYL AT 240MCG/HR. NO SIGNS OF DISTRESS. WILL CONTINUE TO MONITOR.
[2018-12-25] MEDS: cefTRIAXone 1 GM in D5W 55 ML IVPB SCH (17:12)
[2018-12-25] MEDS: Acetaminophen 650mg/20.3ml NG PRN (17:13)
[2018-12-25] MEDS ORDERED: D5NS 1000ml IV ONE (17:33)
--- NOTE | 2018-12-25 19:08 | NUR ---
RESPIRATORY NOTE: Received pt on AC 24, 550VT, 70%, PEEP +5. Pt intubated w/ ETT 7.0 @ 22cm lipline, secured by anchorfast. Pt sedated, still responds to stimuli. B/S sherry. rhonchi, sxn small to moderate amounts of thick, hubbard-yellow secretions. Both hands on soft restraints to prevent pt from self-extubation. Vent plugged into red outlet, ambubag at bedside. Pt in no apparent distress at this time. Will continue to monitor pt.
--- NOTE | 2018-12-25 19:30 | NUR ---
NURSE NOTES: Received report from CLARENCE Farmer. Patient opens eyes spontaneously, follows simple commands. Orally intubated with ET 7.0, 23 lipline. AC 24, 550, PEEP 5, 70%. No s/s of acute distress noted. With OGT patent and intact Receiving Glucerna 1.2 at 40ml/hr, No residual. With right hand SL and left AC g20 running Fentanyl 240mcg/hr. RASS -2. Mon catheter draining to urimeter. Head of bed elevated. Bed locked and in low position. Bed alarm on. With bilateral soft wrists restraints for attempting to pull out tubes. will continue to monitor plan of care.
--- NOTE | 2018-12-25 19:34 | NUR ---
HAND-OFF: Report given to Parvin Crabtree RN.
--- NOTE | 2018-12-25 21:30 | NUR ---
NURSE NOTES: Repositioned patient in bed. Temp 98.9 Axillary. SR on monitor technician HR 75. no s/s of acute distress noted. frequent visual checks continued.
--- NOTE | 2018-12-25 21:49 | Cardiology Progress Note ---
Assessment/Plan Assessment/Plan 1. Sinus tachycardia, resolved, most likely due to hypoxemia, there is no need for AV carissa agents. 2. Acute respiratory failure due to right lung whiteout, s/p intubation and resolution. 3. History of chronic obstructive pulmonary disease. 4. History of salicylate overdose. 5. Morbid obesity. 6. Hyperthyroidism 7. Dyslipidemia Subjective Subjective Sinus rhythm at rate of 77. Intubated at FiO2 of 70%. Objective Last 24 Hour Vital Signs Date Time Temp Pulse Resp B/P (MAP) Pulse Ox O2 Delivery O2 Flow Rate FiO2 12/25/18 21:00 24 Endotracheal Tube 70 12/25/18 21:00 77 24 146/77 (100) 100 12/25/18 20:50 122 24 70 12/25/18 20:45 87 24 148/117 (127) 100 12/25/18 20:30 124 22 171/96 (121) 100 12/25/18 20:15 76 24 128/74 (92) 99 12/25/18 20:00 98.9 80 24 127/71 (89) 99 12/25/18 20:00 19 Endotracheal Tube 70 12/25/18 20:00 80 24 127/71 (89) 99 12/25/18 20:00 70 12/25/18 20:00 Mechanical Ventilator 12/25/18 20:00 81 12/25/18 19:30 80 24 151/82 (105) 89 12/25/18 19:03 77 24 96 Mechanical Ventilator 70 77 24 70 12/25/18 19:00 24 Mechanical Ventilator 70 12/25/18 19:00 80 24 144/76 (98) 96 12/25/18 18:30 81 24 142/84 (103) 99 12/25/18 18:00 24 Mechanical Ventilator 70 12/25/18 18:00 83 24 127/65 (85) 97 12/25/18 17:43 99.8 12/25/18 17:30 116 24 132/81 (98) 92 12/25/18 17:00 85 24 132/81 (98) 94 12/25/18 17:00 24 Mechanical Ventilator 70 12/25/18 16:53 89 24 Mechanical Ventilator 70 12/25/18 16:30 83 24 129/73 (91) 95 12/25/18 16:00 99.9 12/25/18 16:00 86 24 133/71 (91) 96 12/25/18 16:00 24 Mechanical Ventilator 70 12/25/18 16:00 Mechanical Ventilator 12/25/18 16:00 94 12/25/18 15:30 92 24 114/59 (77) 95 12/25/18 15:00 128 19 148/76 (100) 92 12/25/18 15:00 24 Mechanical Ventilator 70 12/25/18 14:40 91 24 94 Mechanical Ventilator 70 91 24 12/25/18 14:30 81 24 127/71 (89) 95 12/25/18 14:00 84 24 134/68 (90) 94 12/25/18 14:00 24 Mechanical Ventilator 70 12/25/18 13:30 86 24 129/70 (89) 94 12/25/18 13:29 24 Mechanical Ventilator 70 12/25/18 13:03 85 24 Mechanical Ventilator 40 12/25/18 13:00 70 12/25/18 13:00 24 Mechanical Ventilator 70 12/25/18 13:00 85 24 125/65 (85) 93 12/25/18 12:30 91 24 136/74 (94) 91 12/25/18 12:00 99.9 91 24 123/71 (88) 91 12/25/18 12:00 50 12/25/18 12:00 Mechanical Ventilator 12/25/18 12:00 79 12/25/18 12:00 24 Mechanical Ventilator 50 12/25/18 11:30 84 24 134/78 (96) 95 12/25/18 11:30 89 24 97 Mechanical Ventilator 40 91 24 40 12/25/18 11:00 84 24 135/96 (109) 91 12/25/18 11:00 24 Mechanical Ventilator 50 12/25/18 10:45 85 24 151/97 (115) 92 12/25/18 10:30 89 23 127/82 (97) 93 12/25/18 10:30 91 24 40 12/25/18 10:00 24 Mechanical Ventilator 50 12/25/18 10:00 94 24 122/64 (83) 94 12/25/18 09:45 118 23 161/131 (141) 91 12/25/18 09:30 24 Mechanical Ventilator 50 12/25/18 09:30 109 24 150/87 (108) 87 12/25/18 09:15 101 24 138/74 (95) 91 12/25/18 09:00 101 24 136/88 (104) 94 12/25/18 08:50 50 12/25/18 08:45 104 24 139/81 (100) 95 12/25/18 08:40 92 12/25/18 08:40 90 24 40 12/25/18 08:30 86 24 123/67 (85) 90 12/25/18 08:30 Mechanical Ventilator 50 12/25/18 08:15 97 24 141/67 (91) 90 12/25/18 08:00 99.6 84 24 124/76 (92) 90 12/25/18 08:00 Mechanical Ventilator 12/25/18 08:00 Mechanical Ventilator 40 12/25/18 08:00 84 12/25/18 08:00 40 12/25/18 07:45 104 23 138/78 (98) 91 12/25/18 07:30 93 24 148/67 (94) 97 12/25/18 07:28 89 24 98 Mechanical Ventilator 40 89 24 40 12/25/18 07:15 76 24 142/72 (95) 93 12/25/18 07:15 Mechanical Ventilator 40 12/25/18 07:00 77 24 122/68 (86) 93 12/25/18 07:00 24 Mechanical Ventilator 40 12/25/18 06:45 77 24 127/67 (87) 93 12/25/18 06:30 81 24 128/70 (89) 93 12/25/18 06:15 79 24 119/66 (83) 92 12/25/18 06:00 77 24 120/70 (87) 92 12/25/18 06:00 24 Mechanical Ventilator 40 12/25/18 05:45 85 24 123/70 (87) 93 12/25/18 05:30 81 24 127/67 (87) 93 12/25/18 05:15 86 24 131/68 (89) 94 12/25/18 05:02 92 24 40 12/25/18 05:00 90 24 122/68 (86) 94 12/25/18 05:00 24 Mechanical Ventilator 40 12/25/18 04:45 92 24 128/72 (90) 95 12/25/18 04:30 24 Mechanical Ventilator 40 12/25/18 04:30 114 20 152/89 (110) 97 12/25/18 04:00 82 8/24/19 04:00 Mechanical Ventilator 12/25/18 04:00 40 12/25/18 04:00 98.7 106 24 144/84 (104) 96 12/25/18 03:30 135 22 124/95 (105) 96 12/25/18 03:08 87 24 98 Mechanical Ventilator 40 92 24 40 12/25/18 03:00 24 Mechanical Ventilator 40 12/25/18 03:00 97 24 145/80 (101) 96 12/25/18 02:30 80 24 125/62 (83) 92 12/25/18 02:00 24 Mechanical Ventilator 40 12/25/18 02:00 78 24 127/70 (89) 93 12/25/18 01:30 81 24 129/64 (85) 92 12/25/18 01:00 80 24 126/69 (88) 93 12/25/18 01:00 24 Mechanical Ventilator 40 12/25/18 00:53 95 24 40 12/25/18 00:30 92 24 130/76 (94) 94 12/25/18 00:00 Mechanical Ventilator 12/25/18 00:00 24 Mechanical Ventilator 40 12/25/18 00:00 99.5 103 24 147/78 (101) 93 12/25/18 00:00 68 12/25/18 00:00 40 12/24/18 23:30 91 24 126/70 (88) 92 12/24/18 23:16 99.1 12/24/18 23:16 108 26 97 Mechanical Ventilator 40 108 26 40 12/24/18 23:00 24 Mechanical Ventilator 40 12/24/18 23:00 90 24 130/74 (92) 93 12/24/18 22:44 24 Mechanical Ventilator 40 12/24/18 22:30 95 23 140/76 (97) 93 12/24/18 22:00 86 24 137/67 (90) 93 12/24/18 22:00 24 Mechanical Ventilator 40 Intake and Output 12/24/18 12/25/18 19:00 07:00 Intake Total 921.0 ml 606 ml Output Total 350 ml 240 ml Balance 571.0 ml 366 ml Free Water 100 ml 30 ml IV Total 461.0 ml 256 ml Tube Feeding 360 ml 320 ml Output Urine Total 350 ml 240 ml Laboratory Tests Test 8/24/19 06:30 White Blood Count 16.7 K/UL (4.8-10.8) H Red Blood Count 3.67 M/UL (4.20-5.40) L Hemoglobin 11.4 G/DL (12.0-16.0) L Hematocrit 35.3 % (37.0-47.0) L Mean Corpuscular Volume 96 FL (80-99) Mean Corpuscular Hemoglobin 31.2 PG (27.0-31.0) H Mean Corpuscular Hemoglobin Concent 32.4 G/DL (32.0-36.0) Red Cell Distribution Width 14.8 % (11.6-14.8) Platelet Count 273 K/UL (150-450) Mean Platelet Volume 5.5 FL (6.5-10.1) L Neutrophils (%) (Auto) 80.7 % (45.0-75.0) H Lymphocytes (%) (Auto) 11.3 % (20.0-45.0) L Monocytes (%) (Auto) 7.4 % (1.0-10.0) Eosinophils (%) (Auto) 0.0 % (0.0-3.0) Basophils (%) (Auto) 0.6 % (0.0-2.0) Sodium Level 144 MMOL/L (136-145) Potassium Level 3.5 MMOL/L (3.5-5.1) Chloride Level 108 MMOL/L (98-107) H Carbon Dioxide Level 27 MMOL/L (21-32) Anion Gap 9 mmol/L (5-15) Blood Urea Nitrogen 16 mg/dL (7-18) Creatinine 1.0 MG/DL (0.55-1.30) Estimat Glomerular Filtration Rate > 60 mL/min (>60) Glucose Level 157 MG/DL (74-106) H Uric Acid 2.2 MG/DL (2.6-7.2) L Calcium Level 8.4 MG/DL (8.5-10.1) L Phosphorus Level 3.1 MG/DL (2.5-4.9) Magnesium Level 2.6 MG/DL (1.8-2.4) H Total Bilirubin 0.3 MG/DL (0.2-1.0) Aspartate Amino Transf (AST/SGOT) 99 U/L (15-37) H Alanine Aminotransferase (ALT/SGPT) 77 U/L (12-78) Alkaline Phosphatase 63 U/L (46-116) C-Reactive Protein, Quantitative 1.7 mg/dL (0.00-0.90) H Pro-B-Type Natriuretic Peptide 65 pg/mL (0-125) Total Protein 6.4 G/DL (6.4-8.2) Albumin 2.9 G/DL (3.4-5.0) L Globulin 3.5 g/dL Albumin/Globulin Ratio 0.8 (1.0-2.7) L Microbiology Date/Time Source Procedure Growth Status 12/24/18 12:46 Sputum Gram Stain - Final Resulted 12/24/18 12:46 Sputum Sputum Culture Pending Resulted Objective HEENT: Atraumatic and normocephalic. Anicteric. Pupils are equal, round, and reactive to light and accommodation, intubated. NECK: JVP cannot be assessed. No carotid bruit. CARDIOVASCULAR: Normal S1, S2. Regular rate and rhythm. No murmurs, gallops, or rubs. PMI is at fourth intercostal space in the midclavicular line. LUNGS: Diminished breath sounds in both lungs. ABDOMEN: Soft, obese. No hepatosplenomegaly. Positive bowel sounds. EXTREMITIES: No evidence of edema, clubbing, or cyanosis. Velasquez Staton MD Dec 25, 2018 21:49
--- NOTE | 2018-12-25 23:30 | NUR ---
NURSE NOTES: Patient opens eyes spontaneously, follows simple commands. Orally intubated with ET 7.0, 23 lipline. AC 24, 550, PEEP 5, 70%. No s/s of acute distress noted. With OGT patent and intact Receiving Glucerna 1.2 at 40ml/hr, No residual. With right hand SL and left AC g20 running Fentanyl 240mcg/hr. RASS -2. Mon catheter draining to urimeter. Head of bed elevated. Bed locked and in low position. Bed alarm on. With bilateral soft wrists restraints for attempting to pull out tubes. will continue to monitor plan of care.
[2018-12-26] VITALS (57 sets, daily range): BP systolic 96–166; BP diastolic 37–113
[2018-12-26] MEDS: Solu-MEDROL 125mg Inj IVP SCH ×2 (00:54→06:32)
[2018-12-26] MEDS: NovoLOG Insulin Flexpen SUBQ SCH ×5 (00:55→23:40)
--- NOTE | 2018-12-26 01:30 | NUR ---
NURSE NOTES: Patient remained on Fentanyl drip at 240mcg/hr RASS score -2, turned and repositioned every 2 hours. Mon draining. OGT intact. no s/s of acute distress noted.
[2018-12-26] MEDS: Albuterol/Ipratropium 3ml neb HHN SCH ×6 (03:04→23:13)
[2018-12-26] MEDS: Acetylcysteine 20% Soln 4ml HHN SCH ×6 (03:04→23:13)
--- NOTE | 2018-12-26 03:30 | NUR ---
NURSE NOTES: Bed bath given tolerated well. Continue on Fentanyl drip @ 240mcg/hr, will try to titrate in 30 min.
--- NOTE | 2018-12-26 04:00 | NUR ---
NURSE NOTES: Titrate Fentanyl to 200mcg/hr, for possible weaning in am. no s/s of acute distress. will continue to monitor pt.
--- NOTE | 2018-12-26 05:00 | NUR ---
NURSE NOTES: Titrate Fentanyl to 180mcg/hr, for possible weaning in am. no s/s of acute distress. will continue to monitor pt.
--- NOTE | 2018-12-26 06:54 | NUR ---
NURSE NOTES: Seen and examined by Dr. Monsalve with new order noted and carried out.
--- NOTE | 2018-12-26 07:10 | NUR ---
HAND-OFF: Report given to CLARENCE Mariscal. Tirate Fentanyl to 100mcg/hr for weaning in am. patient no acute distress noted.
--- NOTE | 2018-12-26 07:15 | NUR ---
RESPIRATORY NOTE: Received pt on current vent settings: AC 24-550ml-70%FiO2-5 peep. Pt is orally intubated with ETT size 7.0 @ 22cm lips line, secured with anchor fast. Pt is stable in condition,sedated but awake, alert and able to follow simple commands, agitated easily. Increased peep to [address] Monsalve's order.CLARENCE Carter and CLARENCE Medel made aware. Gurdeep rhonchi breath sounds heard upon auscultation, suctioned small amount od thin clear brown with red specks secretions without incidents. Breathing TX Duoneb given followed by 1ml Mucomyst 20% without any adverse reactions. No SOB or resp distress noted. Alarms are set and audible, vent is plugged into the red outlet, ambu bag at bedside. will continue to monitor and suction q2h and as needed. Addendum: 12/26/18 at 0939 by Michelle Martins Sutton RT Bite block in place to prevent tube biting.
[2018-12-26 07:26] LABS: BASOPHILS % (AUTO) 0.7 % (0.0-2.0); HEMATOCRIT 37.3 % (37.0-47.0); HEMOGLOBIN 12.1 G/DL (12.0-16.0); LYMPHOCYTES % (AUTO) 10.4 % (20.0-45.0); MEAN CORPUSCULAR VOLUME 96 FL (80-99); MONOCYTES % (AUTO) 8.1 % (1.0-10.0); NEUTROPHILS % (AUTO) 80.8 % (45.0-75.0); PLATELET COUNT 284 K/UL (150-450); RED BLOOD COUNT 3.89 M/UL (4.20-5.40); RED CELL DISTRIBUTION WIDTH 15.2 % (11.6-14.8); WHITE BLOOD COUNT 17.7 K/UL (4.8-10.8)
--- NOTE | 2018-12-26 07:30 | NUR ---
NURSE NOTES: Isabel LIMA gave report to Lizy LIMA. Received patient from Lizy LIMA immediately after when assignment changed. Patient sleeping at this time. Patient on fentanyl drip at 100mcg/hr at this time. RASS -1 at this time. Will continue to monitor sedation level and titrate fentanyl per protocol as needed. Patient showing no sign of acute distress. Patient reported to be confused and anxious when awake. Patient blood pressure 130/69, HR 95, SpO2 100%, and RR 24. Patient orally intubated with ETT size 8 and 3 cm at the lip line. Patient on ventilator setting AC 24, tidal volume 550, FIO2 40%, and PEEP 7. Patient tolerating setting at this time. Patient has an order to wean this morning. Will follow up with RT. Patient has not had a bowel movement since admission. Will follow up and continue to monitor. Patient skin intact. Patient has a jauregui for urine retention/physician request that is patent, asymptomatic, draining, and anchored. Patient has right hand 20G PIV and left antecubital 20G PIV. Both patent, asymptomatic, and flushed at this time. Patient has IV fentanyl running at 100mcg/hr at this time. Will continue to monitor. Patient has an order for urine and sputum culture. Will collect. Bed in low position with bed alarm on and call light in reach at this time. Patient oral car performed and repositioned at this time. Patient provided with cooling measures for temp of 99.0 at this time. Will continue to monitor.
[2018-12-26 08:05] LABS: ALANINE AMINOTRANSFERASE 84 U/L (12-78); ALBUMIN 3.1 G/DL (3.4-5.0); ALBUMIN/GLOBULIN RATIO 0.8 (1.0-2.7); ALKALINE PHOSPHATASE 73 U/L (46-116); ANION GAP 11 mmol/L (5-15); ASPARTATE AMINO TRANSFERASE 66 U/L (15-37); BILIRUBIN,TOTAL 0.4 MG/DL (0.2-1.0); BLOOD UREA NITROGEN 17 mg/dL (7-18); CALCIUM 8.7 MG/DL (8.5-10.1); CARBON DIOXIDE 26 MMOL/L (21-32); CHLORIDE 107 MMOL/L (98-107); CREATININE 1.1 MG/DL (0.55-1.30); PHOSPHORUS 3.4 MG/DL (2.5-4.9); POTASSIUM 3.6 MMOL/L (3.5-5.1); SODIUM 144 MMOL/L (136-145)
--- NOTE | 2018-12-26 08:56 | NUR ---
RESPIRATORY NOTE: Placed pt on CPAP PS 8, 70%FiO2 peep [address] Monsalve's order. Pt is agitated, RSBI 126, RR>40pbm, low Vt<200ml. CLARENCE Barreto at bedside trying to calm pt down. Pt is sedated with Fentanyl but awake, alert, able to understand of weaning plan. However, pt unable to calm down even with Fentanyl and coaching deep breathing. Placed pt back on AC mode with the same previous settings. No more SOB or resp distress noted after placing back on AC mode. CLARENCE Barreto aware. Will continue to monitor.
[2018-12-26] MEDS: Pantoprazole Inj IVP SCH ×2 (09:25→20:34)
--- NOTE | 2018-12-26 10:00 | NUR ---
NURSE NOTES: Patient resting at this time. RASS score -1 at this time. Patient HR 81, BP 147/113, SpO2 97%, and RR 24. Fentanyl increased to 120mcg/hr at 0900 after patient failed ventilator weaning trial. Will continue to monitor and titrate per protocol. Patient became tachypneic and restless with increased blood pressure. Patient resting at this time. Patient bed in low position with bed alarm on and call light in reach at this time.
--- NOTE | 2018-12-26 10:53 | NUR ---
RESPIRATORY NOTE: Oral care done. Pt is more calm and relax. Removed the bite block per pt's request. Informed pt that if she starts biting the tube again, the OPA will be p Addendum: 12/26/18 at 1055 by Michelle Martins Sutton RT The OPA will be put back. Pt understand. CLARENCE Barreto made aware.
--- NOTE | 2018-12-26 11:12 | Infectious Diseases Prog Note ---
Assessment/Plan Assessment/Plan IMPRESSION: Sepsis or systemic inflammatory response syndrome, COPD, Hypercapnic respiratory failure, s Salicylate toxicity, Morbid obesity. Leukocytosis likely steroid related RECOMMENDATION: We will continue ceftriaxone. Sputum culture: normal aniyah We will follow up the cultures. Subjective ROS Limited/Unobtainable: Yes Respiratory: Reports: other - failed weaning Neurologic: Reports: other - more alert & responsive, on restraint Allergies: Coded Allergies: No Known Allergies (Unverified , 11/07/13) Objective Vital Signs Last 24 Hour Vital Signs Date Time Temp Pulse Resp B/P (MAP) Pulse Ox O2 Delivery O2 Flow Rate FiO2 12/26/18 11:00 98 24 98 Mechanical Ventilator 70 102 24 70 12/26/18 08:56 97 12/26/18 08:56 90 24 70 12/26/18 07:15 90 24 98 Mechanical Ventilator 70 109 24 70 12/26/18 07:15 98 24 12/26/18 07:00 20 Endotracheal Tube 70 12/26/18 07:00 102 24 155/81 (105) 98 12/26/18 06:30 99.2 96 24 154/97 (116) 96 12/26/18 06:15 80 24 97 12/26/18 06:00 20 Endotracheal Tube 70 12/26/18 06:00 86 24 139/83 (101) 98 12/26/18 05:30 78 24 118/82 (94) 97 12/26/18 05:02 83 24 152/85 (107) 98 12/26/18 05:00 24 Endotracheal Tube 70 12/26/18 04:59 92 24 70 12/26/18 04:30 87 24 149/85 (106) 98 12/26/18 04:22 89 24 158/75 (102) 99 12/26/18 04:00 98.0 65 24 154/81 (105) 96 12/26/18 04:00 81 12/26/18 04:00 70 12/26/18 04:00 24 Endotracheal Tube 70 12/26/18 04:00 Mechanical Ventilator 12/26/18 03:45 68 23 142/79 (100) 95 12/26/18 03:30 71 24 149/82 (104) 95 12/26/18 03:15 74 24 141/85 (103) 96 12/26/18 03:03 79 24 96 Mechanical Ventilator 70 83 24 70 12/26/18 03:00 69 24 165/103 (123) 98 12/26/18 03:00 24 Endotracheal Tube 70 12/26/18 02:45 70 24 149/84 (105) 98 12/26/18 02:30 72 24 142/91 (108) 99 12/26/18 02:00 99.1 73 24 160/95 (116) 97 12/26/18 02:00 24 Endotracheal Tube 70 12/26/18 01:30 73 24 159/90 (113) 97 12/26/18 01:00 74 24 97 12/26/18 01:00 24 Endotracheal Tube 70 12/26/18 00:55 77 24 70 12/26/18 00:45 71 24 157/87 (110) 97 12/26/18 00:30 85 23 166/92 (116) 95 12/26/18 00:15 73 24 155/87 (109) 97 12/26/18 00:00 72 12/26/18 00:00 Mechanical Ventilator 12/26/18 00:00 24 Endotracheal Tube 70 12/26/18 00:00 98.8 74 24 155/84 (107) 96 12/26/18 00:00 70 12/25/18 23:52 98.9 12/25/18 23:45 78 24 151/87 (108) 96 12/25/18 23:30 74 24 171/86 (114) 97 12/25/18 23:22 24 Endotracheal Tube 70 12/25/18 23:21 24 Endotracheal Tube 70 12/25/18 23:15 84 23 158/90 (112) 97 12/25/18 23:15 89 24 97 Mechanical Ventilator 70 89 24 70 12/25/18 23:00 62 24 133/77 (95) 96 12/25/18 23:00 20 Endotracheal Tube 70 12/25/18 22:45 64 24 133/76 (95) 97 12/25/18 22:30 66 24 135/74 (94) 97 12/25/18 22:15 67 24 141/75 (97) 97 12/25/18 22:00 90 24 153/86 (108) 95 12/25/18 22:00 20 Endotracheal Tube 70 12/25/18 21:45 71 24 141/77 (98) 98 12/25/18 21:30 72 24 145/84 (104) 98 12/25/18 21:00 24 Endotracheal Tube 70 12/25/18 21:00 77 24 146/77 (100) 100 12/25/18 20:50 122 24 70 12/25/18 20:45 87 24 148/117 (127) 100 12/25/18 20:30 124 22 171/96 (121) 100 12/25/18 20:15 76 24 128/74 (92) 99 12/25/18 20:00 98.9 80 24 127/71 (89) 99 12/25/18 20:00 19 Endotracheal Tube 70 12/25/18 20:00 80 24 127/71 (89) 99 12/25/18 20:00 70 12/25/18 20:00 Mechanical Ventilator 12/25/18 20:00 81 12/25/18 19:30 80 24 151/82 (105) 89 12/25/18 19:03 77 24 96 Mechanical Ventilator 70 77 24 70 12/25/18 19:00 24 Mechanical Ventilator 70 12/25/18 19:00 80 24 144/76 (98) 96 12/25/18 18:30 81 24 142/84 (103) 99 12/25/18 18:00 24 Mechanical Ventilator 70 12/25/18 18:00 83 24 127/65 (85) 97 12/25/18 17:43 99.8 12/25/18 17:30 116 24 132/81 (98) 92 12/25/18 17:00 85 24 132/81 (98) 94 12/25/18 17:00 24 Mechanical Ventilator 70 12/25/18 16:53 89 24 Mechanical Ventilator 70 12/25/18 16:30 83 24 129/73 (91) 95 12/25/18 16:00 99.9 12/25/18 16:00 86 24 133/71 (91) 96 12/25/18 16:00 24 Mechanical Ventilator 70 12/25/18 16:00 Mechanical Ventilator 12/25/18 16:00 94 12/25/18 15:30 92 24 114/59 (77) 95 12/25/18 15:00 128 19 148/76 (100) 92 12/25/18 15:00 24 Mechanical Ventilator 70 12/25/18 14:40 91 24 94 Mechanical Ventilator 70 91 24 12/25/18 14:30 81 24 127/71 (89) 95 8/24/19 14:00 84 24 134/68 (90) 94 12/25/18 14:00 24 Mechanical Ventilator 70 12/25/18 13:30 86 24 129/70 (89) 94 12/25/18 13:29 24 Mechanical Ventilator 70 12/25/18 13:03 85 24 Mechanical Ventilator 40 12/25/18 13:00 70 12/25/18 13:00 24 Mechanical Ventilator 70 12/25/18 13:00 85 24 125/65 (85) 93 12/25/18 12:30 91 24 136/74 (94) 91 12/25/18 12:00 99.9 91 24 123/71 (88) 91 12/25/18 12:00 50 12/25/18 12:00 Mechanical Ventilator 12/25/18 12:00 79 12/25/18 12:00 24 Mechanical Ventilator 50 12/25/18 11:30 84 24 134/78 (96) 95 12/25/18 11:30 89 24 97 Mechanical Ventilator 40 91 24 40 Height (Feet): 5 Height (Inches): 9.00 Weight (Pounds): 310 HEENT: other - orally intubated Respiratory/Chest: decreased breath sounds, other - on ventilator Cardiovascular: normal rate Abdomen: soft, non tender, other - orogastric tube Extremities: no edema Skin: no rash Neurologic/Psychiatric: alert, responsive Microbiology Date/Time Source Procedure Growth Status 12/24/18 12:46 Sputum Gram Stain - Final Resulted 12/24/18 12:46 Sputum Culture - Preliminary Usual Upper Respiratory Aniyah Resulted Laboratory Tests Test 12/26/18 06:45 White Blood Count 17.7 K/UL (4.8-10.8) H Red Blood Count 3.89 M/UL (4.20-5.40) L Hemoglobin 12.1 G/DL (12.0-16.0) Hematocrit 37.3 % (37.0-47.0) Mean Corpuscular Volume 96 FL (80-99) Mean Corpuscular Hemoglobin 31.0 PG (27.0-31.0) Mean Corpuscular Hemoglobin Concent 32.3 G/DL (32.0-36.0) Red Cell Distribution Width 15.2 % (11.6-14.8) H Platelet Count 284 K/UL (150-450) Mean Platelet Volume 5.3 FL (6.5-10.1) L Neutrophils (%) (Auto) 80.8 % (45.0-75.0) H Lymphocytes (%) (Auto) 10.4 % (20.0-45.0) L Monocytes (%) (Auto) 8.1 % (1.0-10.0) Eosinophils (%) (Auto) 0.0 % (0.0-3.0) Basophils (%) (Auto) 0.7 % (0.0-2.0) Sodium Level 144 MMOL/L (136-145) Potassium Level 3.6 MMOL/L (3.5-5.1) Chloride Level 107 MMOL/L (98-107) Carbon Dioxide Level 26 MMOL/L (21-32) Anion Gap 11 mmol/L (5-15) Blood Urea Nitrogen 17 mg/dL (7-18) Creatinine 1.1 MG/DL (0.55-1.30) Estimat Glomerular Filtration Rate > 60 mL/min (>60) Glucose Level 156 MG/DL (74-106) H Calcium Level 8.7 MG/DL (8.5-10.1) Phosphorus Level 3.4 MG/DL (2.5-4.9) Magnesium Level 2.7 MG/DL (1.8-2.4) H Total Bilirubin 0.4 MG/DL (0.2-1.0) Aspartate Amino Transf (AST/SGOT) 66 U/L (15-37) H Alanine Aminotransferase (ALT/SGPT) 84 U/L (12-78) H Alkaline Phosphatase 73 U/L (46-116) C-Reactive Protein, Quantitative 1.7 mg/dL (0.00-0.90) H Pro-B-Type Natriuretic Peptide 72 pg/mL (0-125) Total Protein 7.0 G/DL (6.4-8.2) Albumin 3.1 G/DL (3.4-5.0) L Globulin 3.9 g/dL Albumin/Globulin Ratio 0.8 (1.0-2.7) L Current Medications Medications (Trade) Dose Ordered Sig/Amaya Route PRN Reason Start Time Stop Time Status Last Admin Dose Admin Acetaminophen (Tylenol) 650 mg Q4HR PRN NG FOR TEMP >100.5 12/23/18 07:30 01/22/19 07:29 12/25/18 17:13 Acetylcysteine (Mucomyst) 200 mg Q4HRT HHN 12/24/18 23:00 01/23/19 12:59 12/26/18 10:45 Albuterol/ Ipratropium (Albuterol/ Ipratropium) 3 ml Q4HRT HHN 12/21/18 19:00 12/26/18 18:59 12/26/18 10:45 Ceftriaxone Sodium 1 gm/ Dextrose 55 ml @ 110 mls/hr Q24H IVPB 12/21/18 18:00 12/28/18 17:59 12/25/18 17:12 Dextrose (Dextrose 50%) 25 ml Q30M PRN IV Hypoglycemia 12/21/18 17:00 01/20/19 16:59 Dextrose (Dextrose 50%) 50 ml Q30M PRN IV Hypoglycemia 12/21/18 17:00 01/20/19 16:59 Fentanyl Citrate 2500 mcg/Sodium Chloride 250 ml @ 0 mls/hr Q24H IV 12/24/18 23:31 12/31/18 23:30 12/25/18 23:22 Haloperidol Lactate (Haldol) 5 mg Q6H PRN IM Agitation 12/24/18 00:30 01/23/19 00:29 12/24/18 16:22 Insulin Aspart (NovoLOG) EVERY 6 HOURS SUBQ 12/21/18 18:00 01/20/19 17:59 12/26/18 06:33 Lorazepam (Ativan 2mg/ml 1ml) 1 mg Q2H PRN IV agitation / restlessness 12/22/18 12:15 12/28/18 16:14 12/25/18 09:59 Methylprednisolone Sodium Succinate (Solu-MEDROL) 40 mg EVERY 6 HOURS IVP 12/26/18 12:00 01/25/19 11:59 Pantoprazole (Protonix) 40 mg EVERY 12 HOURS IVP 12/22/18 11:00 01/21/19 10:59 12/26/18 09:25 Quetiapine Fumarate (SEROquel) 25 mg Q6H PRN ORAL Agitation 12/22/18 12:30 01/20/19 12:29 Nikos Martinez MD Dec 26, 2018 11:12
--- NOTE | 2018-12-26 12:00 | NUR ---
NURSE NOTES: Patient anxious, asking many questions, and restless at this time. Patient fentanyl drip increased to 130mcg/hr at this time. RASS +2 at this time. Will continue to monitor sedation level and titrate fentanyl per protocol as needed. Patient provided talk therapy as well as increased sedation to alleviate her anxiety. blood pressure 128/74, HR 1200, SpO2 100%, and RR 26. Patient orally intubated with ETT size 8 and 3 cm at the lip line. Temp 99.8 at this time. Cooling measures provided again. Fan provided. Patient on ventilator setting AC 24, tidal volume 550, FIO2 40%, and PEEP 7. Patient tolerating setting at this time. Patient failed weaning this morning. Patient became tachypneic and anxious. Patient lasted less than 30 minutes. jauregui remains patent, asymptomatic, draining, and anchored. right hand 20G PIV and left antecubital 20G PIV remain patent and asymptomatic. Bed in low position with bed alarm on and call light in reach at this time. Patient oral car performed and repositioned at this time. Will continue to monitor.
--- NOTE | 2018-12-26 12:14 | Pulmonolgy Critical Care Note ---
Critical Care - Asmt/Plan Assessment/Plan: Pulmonary CCM Progress Note HPI Patient is a 58-year-old woman with apparent history of Obstructive Airways Disease, Schizophrenia, Obesity, presented with shortness of breath, increased anxiety. Per ER notes history limited by mental status, being a poor historian. Patient noted to be extremely short of breath requiring intubation in the ED. On mechainical ventilation in the ICU Noted to have elevated ASA level on admission, IVF no DC Increasing FIO2 - PEEP increased to 7, AB changed, diuresed yesterday Physical Exam Vital Signs Noted General Appearance: normal inspection, mildly sedated on the ventilator Head: NCAT ENT: Moist mm, ETT, OGT, JVP not visible Neck: normal inspection, full range of motion, supple, no bony tend Respiratory: normal inspection, no respiratory distress, no retraction, mild wheezing, reduced basal BS Cardiovascular: regular rate, rhythm, Normal HS1, HS2 Gastrointestinal: normal inspection, normal bowel sounds, non tender, soft, no guarding, no hernia Genitourinary: no CVA tenderness Musculoskeletal: normal inspection, moderate edema Neurologic: no focal signs noted, follows commands Impression: Respiratory failure - Hypercapneic and Hypoxic Elevated Salicylate level Pneumonia Possible Congestive Heart Failure Salicylate overdose Schizophrenia/Psychosis Asthma Obesity Plan: ACV Vt 550 P7 Adjust FIO2 sats 90-94%, wean as tolerated IV Antibiotics per ID IV Solumedrol reduced HHN Wean as tolerated ISS SCRAP CUTTER med PRN Sedation BLE dupplex PPX IV alkalinized fluids - reduce OGT feeding advance Labs Noted Test 12/21/18 10:45 White Blood Count 8.8 K/UL (4.8-10.8) Red Blood Count 4.10 M/UL (4.20-5.40) Hemoglobin 12.7 G/DL (12.0-16.0) Hematocrit 39.3 % (37.0-47.0) Mean Corpuscular Volume 96 FL (80-99) Mean Corpuscular Hemoglobin 30.9 PG (27.0-31.0) Mean Corpuscular Hemoglobin Concent 32.2 G/DL (32.0-36.0) Red Cell Distribution Width 14.7 % (11.6-14.8) Platelet Count 292 K/UL (150-450) Mean Platelet Volume 5.0 FL (6.5-10.1) Neutrophils (%) (Auto) 50.2 % (45.0-75.0) Lymphocytes (%) (Auto) 41.4 % (20.0-45.0) Monocytes (%) (Auto) 6.2 % (1.0-10.0) Eosinophils (%) (Auto) 0.2 % (0.0-3.0) Basophils (%) (Auto) 2.0 % (0.0-2.0) Sodium Level 142 MMOL/L (136-145) Potassium Level 4.0 MMOL/L (3.5-5.1) Chloride Level 110 MMOL/L (98-107) Carbon Dioxide Level 20 MMOL/L (21-32) Anion Gap 12 mmol/L (5-15) Blood Urea Nitrogen 11 mg/dL (7-18) Creatinine 1.0 MG/DL (0.55-1.30) Estimat Glomerular Filtration Rate > 60 mL/min (>60) Glucose Level 90 MG/DL (74-106) Calcium Level 8.5 MG/DL (8.5-10.1) Total Bilirubin 0.3 MG/DL (0.2-1.0) Aspartate Amino Transf (AST/SGOT) 44 U/L (15-37) Alanine Aminotransferase (ALT/SGPT) 58 U/L (12-78) Alkaline Phosphatase 79 U/L (46-116) Troponin I 0.000 ng/mL (0.000-0.056) Total Protein 7.8 G/DL (6.4-8.2) Albumin 3.5 G/DL (3.4-5.0) Globulin 4.3 g/dL Albumin/Globulin Ratio 0.8 (1.0-2.7) Thyroid Stimulating Hormone (TSH) 0.239 uiU/mL (0.358-3.740) Salicylates Level 46.0 ug/mL (2.8-20) Acetaminophen Level < 2 MCG/ML (10-30) Serum Alcohol < 3 mg/dL CXR: ETT appropriate, basal infiltrates, vascular congestion Respiratory: adjust FIO2 Critical Care - Objective Last 24 Hour Vital Signs Date Time Temp Pulse Resp B/P (MAP) Pulse Ox O2 Delivery O2 Flow Rate FiO2 12/26/18 11:00 98 24 98 Mechanical Ventilator 70 102 24 70 12/26/18 08:56 97 12/26/18 08:56 90 24 70 12/26/18 07:15 90 24 98 Mechanical Ventilator 70 109 24 70 12/26/18 07:15 98 24 12/26/18 07:00 20 Endotracheal Tube 70 12/26/18 07:00 102 24 155/81 (105) 98 12/26/18 06:30 99.2 96 24 154/97 (116) 96 12/26/18 06:15 80 24 97 12/26/18 06:00 20 Endotracheal Tube 70 12/26/18 06:00 86 24 139/83 (101) 98 12/26/18 05:30 78 24 118/82 (94) 97 12/26/18 05:02 83 24 152/85 (107) 98 12/26/18 05:00 24 Endotracheal Tube 70 12/26/18 04:59 92 24 70 12/26/18 04:30 87 24 149/85 (106) 98 12/26/18 04:22 89 24 158/75 (102) 99 12/26/18 04:00 98.0 65 24 154/81 (105) 96 12/26/18 04:00 81 12/26/18 04:00 70 12/26/18 04:00 24 Endotracheal Tube 70 12/26/18 04:00 Mechanical Ventilator 12/26/18 03:45 68 23 142/79 (100) 95 12/26/18 03:30 71 24 149/82 (104) 95 12/26/18 03:15 74 24 141/85 (103) 96 12/26/18 03:03 79 24 96 Mechanical Ventilator 70 83 24 70 12/26/18 03:00 69 24 165/103 (123) 98 12/26/18 03:00 24 Endotracheal Tube 70 12/26/18 02:45 70 24 149/84 (105) 98 12/26/18 02:30 72 24 142/91 (108) 99 12/26/18 02:00 99.1 73 24 160/95 (116) 97 12/26/18 02:00 24 Endotracheal Tube 70 12/26/18 01:30 73 24 159/90 (113) 97 12/26/18 01:00 74 24 97 12/26/18 01:00 24 Endotracheal Tube 70 12/26/18 00:55 77 24 70 12/26/18 00:45 71 24 157/87 (110) 97 12/26/18 00:30 85 23 166/92 (116) 95 12/26/18 00:15 73 24 155/87 (109) 97 12/26/18 00:00 72 12/26/18 00:00 Mechanical Ventilator 12/26/18 00:00 24 Endotracheal Tube 70 12/26/18 00:00 98.8 74 24 155/84 (107) 96 12/26/18 00:00 70 12/25/18 23:52 98.9 12/25/18 23:45 78 24 151/87 (108) 96 12/25/18 23:30 74 24 171/86 (114) 97 12/25/18 23:22 24 Endotracheal Tube 70 12/25/18 23:21 24 Endotracheal Tube 70 12/25/18 23:15 84 23 158/90 (112) 97 12/25/18 23:15 89 24 97 Mechanical Ventilator 70 89 24 70 12/25/18 23:00 62 24 133/77 (95) 96 12/25/18 23:00 20 Endotracheal Tube 70 12/25/18 22:45 64 24 133/76 (95) 97 12/25/18 22:30 66 24 135/74 (94) 97 12/25/18 22:15 67 24 141/75 (97) 97 12/25/18 22:00 90 24 153/86 (108) 95 12/25/18 22:00 20 Endotracheal Tube 70 12/25/18 21:45 71 24 141/77 (98) 98 12/25/18 21:30 72 24 145/84 (104) 98 12/25/18 21:00 24 Endotracheal Tube 70 12/25/18 21:00 77 24 146/77 (100) 100 12/25/18 20:50 122 24 70 12/25/18 20:45 87 24 148/117 (127) 100 12/25/18 20:30 124 22 171/96 (121) 100 12/25/18 20:15 76 24 128/74 (92) 99 12/25/18 20:00 98.9 80 24 127/71 (89) 99 12/25/18 20:00 19 Endotracheal Tube 70 12/25/18 20:00 80 24 127/71 (89) 99 12/25/18 20:00 70 12/25/18 20:00 Mechanical Ventilator 12/25/18 20:00 81 12/25/18 19:30 80 24 151/82 (105) 89 12/25/18 19:03 77 24 96 Mechanical Ventilator 70 77 24 70 12/25/18 19:00 24 Mechanical Ventilator 70 12/25/18 19:00 80 24 144/76 (98) 96 12/25/18 18:30 81 24 142/84 (103) 99 12/25/18 18:00 24 Mechanical Ventilator 70 12/25/18 18:00 83 24 127/65 (85) 97 12/25/18 17:43 99.8 12/25/18 17:30 116 24 132/81 (98) 92 12/25/18 17:00 85 24 132/81 (98) 94 12/25/18 17:00 24 Mechanical Ventilator 70 12/25/18 16:53 89 24 Mechanical Ventilator 70 12/25/18 16:30 83 24 129/73 (91) 95 12/25/18 16:00 99.9 12/25/18 16:00 86 24 133/71 (91) 96 12/25/18 16:00 24 Mechanical Ventilator 70 12/25/18 16:00 Mechanical Ventilator 12/25/18 16:00 94 12/25/18 15:30 92 24 114/59 (77) 95 12/25/18 15:00 128 19 148/76 (100) 92 12/25/18 15:00 24 Mechanical Ventilator 70 12/25/18 14:40 91 24 94 Mechanical Ventilator 70 91 24 12/25/18 14:30 81 24 127/71 (89) 95 12/25/18 14:00 84 24 134/68 (90) 94 12/25/18 14:00 24 Mechanical Ventilator 70 12/25/18 13:30 86 24 129/70 (89) 94 12/25/18 13:29 24 Mechanical Ventilator 70 12/25/18 13:03 85 24 Mechanical Ventilator 40 12/25/18 13:00 70 12/25/18 13:00 24 Mechanical Ventilator 70 12/25/18 13:00 85 24 125/65 (85) 93 12/25/18 12:30 91 24 136/74 (94) 91 Micro: Microbiology Date/Time Source Procedure Growth Status 12/24/18 12:46 Sputum Gram Stain - Final Resulted 12/24/18 12:46 Sputum Culture - Preliminary Usual Upper Respiratory Candice Resulted Accucheck: 173 Critical Care - Subjective ROS Limited/Unobtainable: Yes Condition: critical FI02: 70 Vent Support Breath Rate: 24 Vent Support Mode: AC Vent Tidal Volume: 550 Sputum Amount: Small PEEP: 7.0 PIP: 33 Tube Feeding Amount: 40 I&O: Intake and Output 12/25/18 12/26/18 19:00 07:00 Intake Total 1306 ml 864.6 ml Output Total 1000 ml 1175 ml Balance 306 ml -310.4 ml Free Water 100 ml 150 ml IV Total 766 ml 254.6 ml Tube Feeding 440 ml 400 ml Other 60 ml Output Urine Total 1000 ml 1175 ml ET-Tube: 7.0 ET Position: 22 Kevan Monsalve MD Dec 26, 2018 12:14
--- NOTE | 2018-12-26 12:35 | NUR ---
NURSE NOTES: Observed patient bedside. 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 Pt wanted to make needs known by writing them down with paper/pen. Pt had some questions, questions were answered. Changed Pulse Ox from ear to [place] to get better reading. Now reading with good pleuth. Patient was suctioned via ETT. Oral care was performed. Pt also given Lemon Swabs for mouth. Patient was very content. Will cont to monitor for possible removal of restraints.
--- NOTE | 2018-12-26 12:40 | Hematology/Onc Progress Note ---
Assessment/Plan Assessment/Plan Assessment and Recs: # Anemia of chronic disease due to underlying chronic medical issues, multifactorial --> Anemia workup has been ordered, rule out gi bleed --> No evidence of hemolysis is noted, peripheral smear has been reviewed. --> Hgb goal >7. Transfuse prn. --> Epogen or iron at this time is not particularly indicated --> Medications have been reviewed --> low threshold for gi evaluation in case has occult + # Leukocytosis is likely due to steriods --> monitor steriod use --> accuchecks qac and qhs --> insulin as needed prn --> on ctx per id prn --> wbc 12-->15->17-->18 # Salicylate overdose now improved --> Medical management for salicylate overdose --> Sodium bicarbonate --> IVF started, as per renal # Electrolyte correction --> replace k prn basis # Resp failure --> higher peep, sbt per pulm The timing of this note does not necessarily reflect the time of the patient was seen. GREATLY APPRECIATE CONSULTATION. Subjective Constitutional: Denies: no symptoms, chills, fever, malaise, weakness, other HEENT: Denies: no symptoms, eye pain, blurred vision, tearing, double vision, ear pain, ear discharge, nose pain, nose congestion, throat pain, throat swelling, mouth pain, mouth swelling, other Cardiovascular: Denies: no symptoms, chest pain, edema, irregular heart rate, lightheadedness, palpitations, syncope, other Gastrointestinal/Abdominal: Denies: no symptoms, abdomen distended, abdominal pain, black stools, tarry stools, blood in stool, constipated, diarrhea, difficulty swallowing, nausea, poor appetite, poor fluid intake, rectal bleeding , vomiting, other Genitourinary: Denies: no symptoms, burning, discharge, frequency, flank pain, hematuria, incontinence, pain, urgency, other Endocrine: Denies: no symptoms, excessive sweating, flushing, intolerance to cold, intolerance to heat, increased hunger, increased thirst, increased urine, unexplained weight gain, unexplained weight loss, other Allergies: Coded Allergies: No Known Allergies (Unverified , 11/07/13) Subjective 12/23: no events, no bleeding reported, tf held for potential extubation 8/23: icu, trach, agitated and confused, labs reviewed, abx, fentanyl 12/26: no bleeding, no chills, still on abx, fentayl, labs reviewed Objective Objective Current Medications Medications (Trade) Dose Ordered Sig/Amaya Route PRN Reason Start Time Stop Time Status Last Admin Dose Admin Acetaminophen (Tylenol) 650 mg Q4HR PRN NG FOR TEMP >100.5 12/23/18 07:30 01/22/19 07:29 12/25/18 17:13 Acetylcysteine (Mucomyst) 200 mg Q4HRT HHN 12/24/18 23:00 01/23/19 12:59 12/26/18 10:45 Albuterol/ Ipratropium (Albuterol/ Ipratropium) 3 ml Q4HRT HHN 12/21/18 19:00 12/26/18 18:59 12/26/18 10:45 Ceftriaxone Sodium 1 gm/ Dextrose 55 ml @ 110 mls/hr Q24H IVPB 12/21/18 18:00 12/28/18 17:59 12/25/18 17:12 Dextrose (Dextrose 50%) 25 ml Q30M PRN IV Hypoglycemia 12/21/18 17:00 01/20/19 16:59 Dextrose (Dextrose 50%) 50 ml Q30M PRN IV Hypoglycemia 12/21/18 17:00 01/20/19 16:59 Fentanyl Citrate 2500 mcg/Sodium Chloride 250 ml @ 0 mls/hr Q24H IV 12/24/18 23:31 12/31/18 23:30 12/25/18 23:22 Haloperidol Lactate (Haldol) 5 mg Q6H PRN IM Agitation 12/24/18 00:30 01/23/19 00:29 12/24/18 16:22 Insulin Aspart (NovoLOG) EVERY 6 HOURS SUBQ 12/21/18 18:00 01/20/19 17:59 12/26/18 06:33 Lorazepam (Ativan 2mg/ml 1ml) 1 mg Q2H PRN IV agitation / restlessness 12/22/18 12:15 12/28/18 16:14 12/25/18 09:59 Methylprednisolone Sodium Succinate (Solu-MEDROL) 40 mg EVERY 6 HOURS IVP 12/26/18 12:00 01/25/19 11:59 Pantoprazole (Protonix) 40 mg EVERY 12 HOURS IVP 12/22/18 11:00 01/21/19 10:59 12/26/18 09:25 Quetiapine Fumarate (SEROquel) 25 mg Q6H PRN ORAL Agitation 12/22/18 12:30 01/20/19 12:29 Last 24 Hour Vital Signs Date Time Temp Pulse Resp B/P (MAP) Pulse Ox O2 Delivery O2 Flow Rate FiO2 12/26/18 11:00 98 24 98 Mechanical Ventilator 70 102 24 70 12/26/18 08:56 97 12/26/18 08:56 90 24 70 12/26/18 07:15 90 24 98 Mechanical Ventilator 70 109 24 70 12/26/18 07:15 98 24 12/26/18 07:00 20 Endotracheal Tube 70 12/26/18 07:00 102 24 155/81 (105) 98 12/26/18 06:30 99.2 96 24 154/97 (116) 96 12/26/18 06:15 80 24 97 12/26/18 06:00 20 Endotracheal Tube 70 12/26/18 06:00 86 24 139/83 (101) 98 12/26/18 05:30 78 24 118/82 (94) 97 12/26/18 05:02 83 24 152/85 (107) 98 12/26/18 05:00 24 Endotracheal Tube 70 12/26/18 04:59 92 24 70 12/26/18 04:30 87 24 149/85 (106) 98 12/26/18 04:22 89 24 158/75 (102) 99 12/26/18 04:00 98.0 65 24 154/81 (105) 96 12/26/18 04:00 81 12/26/18 04:00 70 12/26/18 04:00 24 Endotracheal Tube 70 12/26/18 04:00 Mechanical Ventilator 12/26/18 03:45 68 23 142/79 (100) 95 12/26/18 03:30 71 24 149/82 (104) 95 12/26/18 03:15 74 24 141/85 (103) 96 12/26/18 03:03 79 24 96 Mechanical Ventilator 70 83 24 70 12/26/18 03:00 69 24 165/103 (123) 98 12/26/18 03:00 24 Endotracheal Tube 70 12/26/18 02:45 70 24 149/84 (105) 98 12/26/18 02:30 72 24 142/91 (108) 99 12/26/18 02:00 99.1 73 24 160/95 (116) 97 12/26/18 02:00 24 Endotracheal Tube 70 12/26/18 01:30 73 24 159/90 (113) 97 12/26/18 01:00 74 24 97 12/26/18 01:00 24 Endotracheal Tube 70 12/26/18 00:55 77 24 70 12/26/18 00:45 71 24 157/87 (110) 97 12/26/18 00:30 85 23 166/92 (116) 95 12/26/18 00:15 73 24 155/87 (109) 97 12/26/18 00:00 72 12/26/18 00:00 Mechanical Ventilator 12/26/18 00:00 24 Endotracheal Tube 70 12/26/18 00:00 98.8 74 24 155/84 (107) 96 12/26/18 00:00 70 12/25/18 23:52 98.9 12/25/18 23:45 78 24 151/87 (108) 96 12/25/18 23:30 74 24 171/86 (114) 97 12/25/18 23:22 24 Endotracheal Tube 70 12/25/18 23:21 24 Endotracheal Tube 70 12/25/18 23:15 84 23 158/90 (112) 97 12/25/18 23:15 89 24 97 Mechanical Ventilator 70 89 24 70 12/25/18 23:00 62 24 133/77 (95) 96 12/25/18 23:00 20 Endotracheal Tube 70 12/25/18 22:45 64 24 133/76 (95) 97 12/25/18 22:30 66 24 135/74 (94) 97 12/25/18 22:15 67 24 141/75 (97) 97 12/25/18 22:00 90 24 153/86 (108) 95 12/25/18 22:00 20 Endotracheal Tube 70 12/25/18 21:45 71 24 141/77 (98) 98 12/25/18 21:30 72 24 145/84 (104) 98 12/25/18 21:00 24 Endotracheal Tube 70 12/25/18 21:00 77 24 146/77 (100) 100 12/25/18 20:50 122 24 70 12/25/18 20:45 87 24 148/117 (127) 100 12/25/18 20:30 124 22 171/96 (121) 100 12/25/18 20:15 76 24 128/74 (92) 99 12/25/18 20:00 98.9 80 24 127/71 (89) 99 12/25/18 20:00 19 Endotracheal Tube 70 12/25/18 20:00 80 24 127/71 (89) 99 12/25/18 20:00 70 12/25/18 20:00 Mechanical Ventilator 12/25/18 20:00 81 12/25/18 19:30 80 24 151/82 (105) 89 12/25/18 19:03 77 24 96 Mechanical Ventilator 70 77 24 70 12/25/18 19:00 24 Mechanical Ventilator 70 12/25/18 19:00 80 24 144/76 (98) 96 12/25/18 18:30 81 24 142/84 (103) 99 12/25/18 18:00 24 Mechanical Ventilator 70 12/25/18 18:00 83 24 127/65 (85) 97 12/25/18 17:43 99.8 12/25/18 17:30 116 24 132/81 (98) 92 12/25/18 17:00 85 24 132/81 (98) 94 12/25/18 17:00 24 Mechanical Ventilator 70 12/25/18 16:53 89 24 Mechanical Ventilator 70 12/25/18 16:30 83 24 129/73 (91) 95 12/25/18 16:00 99.9 12/25/18 16:00 86 24 133/71 (91) 96 12/25/18 16:00 24 Mechanical Ventilator 70 12/25/18 16:00 Mechanical Ventilator 12/25/18 16:00 94 12/25/18 15:30 92 24 114/59 (77) 95 12/25/18 15:00 128 19 148/76 (100) 92 12/25/18 15:00 24 Mechanical Ventilator 70 12/25/18 14:40 91 24 94 Mechanical Ventilator 70 91 24 12/25/18 14:30 81 24 127/71 (89) 95 12/25/18 14:00 84 24 134/68 (90) 94 8/24/19 14:00 24 Mechanical Ventilator 70 12/25/18 13:30 86 24 129/70 (89) 94 12/25/18 13:29 24 Mechanical Ventilator 70 12/25/18 13:03 85 24 Mechanical Ventilator 40 12/25/18 13:00 70 12/25/18 13:00 24 Mechanical Ventilator 70 12/25/18 13:00 85 24 125/65 (85) 93 12/25/18 12:30 91 24 136/74 (94) 91 12/25/18 12:00 99.9 91 24 123/71 (88) 91 12/25/18 12:00 50 12/25/18 12:00 Mechanical Ventilator 12/25/18 12:00 79 12/25/18 12:00 24 Mechanical Ventilator 50 12/25/18 11:30 84 24 134/78 (96) 95 12/25/18 11:30 89 24 97 Mechanical Ventilator 40 91 24 40 12/25/18 11:00 84 24 135/96 (109) 91 12/25/18 11:00 24 Mechanical Ventilator 50 12/25/18 10:45 85 24 151/97 (115) 92 12/25/18 10:30 89 23 127/82 (97) 93 12/25/18 10:30 91 24 40 12/25/18 10:00 24 Mechanical Ventilator 50 12/25/18 10:00 94 24 122/64 (83) 94 12/25/18 09:45 118 23 161/131 (141) 91 12/25/18 09:30 24 Mechanical Ventilator 50 12/25/18 09:30 109 24 150/87 (108) 87 12/25/18 09:15 101 24 138/74 (95) 91 12/25/18 09:00 101 24 136/88 (104) 94 12/25/18 08:50 50 12/25/18 08:45 104 24 139/81 (100) 95 12/25/18 08:40 92 12/25/18 08:40 90 24 40 12/25/18 08:30 86 24 123/67 (85) 90 12/25/18 08:30 Mechanical Ventilator 50 12/25/18 08:15 97 24 141/67 (91) 90 12/25/18 08:00 99.6 84 24 124/76 (92) 90 12/25/18 08:00 Mechanical Ventilator 12/25/18 08:00 Mechanical Ventilator 40 12/25/18 08:00 84 12/25/18 08:00 40 12/25/18 07:45 104 23 138/78 (98) 91 12/25/18 07:30 93 24 148/67 (94) 97 12/25/18 07:28 89 24 98 Mechanical Ventilator 40 89 24 40 12/25/18 07:15 76 24 142/72 (95) 93 12/25/18 07:15 Mechanical Ventilator 40 12/25/18 07:00 77 24 122/68 (86) 93 12/25/18 07:00 24 Mechanical Ventilator 40 12/25/18 06:45 77 24 127/67 (87) 93 12/25/18 06:30 81 24 128/70 (89) 93 12/25/18 06:15 79 24 119/66 (83) 92 12/25/18 06:00 77 24 120/70 (87) 92 12/25/18 06:00 24 Mechanical Ventilator 40 12/25/18 05:45 85 24 123/70 (87) 93 12/25/18 05:30 81 24 127/67 (87) 93 12/25/18 05:15 86 24 131/68 (89) 94 12/25/18 05:02 92 24 40 12/25/18 05:00 90 24 122/68 (86) 94 12/25/18 05:00 24 Mechanical Ventilator 40 12/25/18 04:45 92 24 128/72 (90) 95 12/25/18 04:30 24 Mechanical Ventilator 40 12/25/18 04:30 114 20 152/89 (110) 97 12/25/18 04:00 82 12/25/18 04:00 Mechanical Ventilator 12/25/18 04:00 40 12/25/18 04:00 98.7 106 24 144/84 (104) 96 12/25/18 03:30 135 22 124/95 (105) 96 12/25/18 03:08 87 24 98 Mechanical Ventilator 40 92 24 40 12/25/18 03:00 24 Mechanical Ventilator 40 12/25/18 03:00 97 24 145/80 (101) 96 12/25/18 02:30 80 24 125/62 (83) 92 12/25/18 02:00 24 Mechanical Ventilator 40 12/25/18 02:00 78 24 127/70 (89) 93 12/25/18 01:30 81 24 129/64 (85) 92 12/25/18 01:00 80 24 126/69 (88) 93 12/25/18 01:00 24 Mechanical Ventilator 40 12/25/18 00:53 95 24 40 12/25/18 00:30 92 24 130/76 (94) 94 12/25/18 00:00 Mechanical Ventilator 12/25/18 00:00 24 Mechanical Ventilator 40 12/25/18 00:00 99.5 103 24 147/78 (101) 93 12/25/18 00:00 68 12/25/18 00:00 40 12/24/18 23:30 91 24 126/70 (88) 92 12/24/18 23:16 108 26 97 Mechanical Ventilator 40 108 26 40 12/24/18 23:00 24 Mechanical Ventilator 40 12/24/18 23:00 90 24 130/74 (92) 93 12/24/18 22:44 24 Mechanical Ventilator 40 12/24/18 22:30 95 23 140/76 (97) 93 12/24/18 22:00 86 24 137/67 (90) 93 12/24/18 22:00 24 Mechanical Ventilator 40 12/24/18 21:30 94 24 164/86 (112) 95 12/24/18 21:16 89 24 40 12/24/18 21:00 24 Mechanical Ventilator 40 12/24/18 21:00 85 24 125/71 (89) 93 12/24/18 20:30 86 24 141/68 (92) 92 12/24/18 20:00 99.1 83 24 132/70 (90) 91 12/24/18 20:00 40 12/24/18 20:00 24 Mechanical Ventilator 40 12/24/18 20:00 Mechanical Ventilator 12/24/18 20:00 65 12/24/18 19:30 108 19 139/78 (98) 90 12/24/18 19:13 88 24 94 Mechanical Ventilator 40 88 24 40 12/24/18 19:12 83 24 94 Mechanical Ventilator 40 12/24/18 19:00 24 Mechanical Ventilator 40 12/24/18 19:00 79 24 139/76 (97) 94 12/24/18 18:31 24 Mechanical Ventilator 12/24/18 18:30 81 24 147/75 (99) 95 8/23/19 18:00 106 24 142/83 (102) 97 12/24/18 18:00 23 Mechanical Ventilator 40 12/24/18 17:45 86 24 131/74 (93) 100 12/24/18 17:30 20 Mechanical Ventilator 40 12/24/18 17:30 117 25 151/78 (102) 95 12/24/18 17:01 93 24 40 12/24/18 17:00 24 Mechanical Ventilator 40 12/24/18 17:00 97 24 151/77 (101) 96 12/24/18 16:45 116 23 153/83 (106) 96 12/24/18 16:30 84 24 160/76 (104) 94 12/24/18 16:20 21 Mechanical Ventilator 40 12/24/18 16:00 40 12/24/18 16:00 99.6 86 24 143/85 (104) 95 12/24/18 16:00 Mechanical Ventilator 12/24/18 16:00 21 Mechanical Ventilator 40 12/24/18 15:56 92 12/24/18 15:30 86 24 96 Mechanical Ventilator 40 12/24/18 15:30 84 24 141/68 (92) 95 12/24/18 15:23 91 24 96 Mechanical Ventilator 40 12/24/18 15:23 91 24 40 12/24/18 15:00 20 Mechanical Ventilator 40 12/24/18 15:00 120 22 162/91 (114) 94 12/24/18 14:30 99 24 145/87 (106) 96 12/24/18 14:20 21 Mechanical Ventilator 40 12/24/18 14:00 90 24 139/77 (97) 95 12/24/18 14:00 20 Mechanical Ventilator 40 12/24/18 13:30 86 24 128/71 (90) 94 12/24/18 13:20 21 Mechanical Ventilator 40 12/24/18 13:00 94 23 138/71 (93) 93 12/24/18 12:50 91 24 40 12/24/18 12:42 24 Mechanical Ventilator 40 Intake and Output 12/25/18 12/26/18 19:00 07:00 Intake Total 1306 ml 864.6 ml Output Total 1000 ml 1175 ml Balance 306 ml -310.4 ml Free Water 100 ml 150 ml IV Total 766 ml 254.6 ml Tube Feeding 440 ml 400 ml Other 60 ml Output Urine Total 1000 ml 1175 ml Labs Test 12/23/18 18:00 12/24/18 03:05 12/25/18 06:30 12/26/18 06:45 Arterial Blood pH 7.546 (7.350-7.450) Arterial Blood Partial Pressure CO2 34.1 mmHg (35.0-45.0) Arterial Blood Partial Pressure O2 99.0 mmHg (75.0-100.0) Arterial Blood HCO3 28.9 mmol/L (22.0-26.0) Arterial Blood Oxygen Saturation 97.9 % (95-100) Arterial Blood Base Excess 6.5 (-2-2) Luis Test Positive White Blood Count 16.8 K/UL (4.8-10.8) 16.7 K/UL (4.8-10.8) 17.7 K/UL (4.8-10.8) Red Blood Count 3.86 M/UL (4.20-5.40) 3.67 M/UL (4.20-5.40) 3.89 M/UL (4.20-5.40) Hemoglobin 11.9 G/DL (12.0-16.0) 11.4 G/DL (12.0-16.0) 12.1 G/DL (12.0-16.0) Hematocrit 37.0 % (37.0-47.0) 35.3 % (37.0-47.0) 37.3 % (37.0-47.0) Mean Corpuscular Volume 96 FL (80-99) 96 FL (80-99) 96 FL (80-99) Mean Corpuscular Hemoglobin 30.8 PG (27.0-31.0) 31.2 PG (27.0-31.0) 31.0 PG (27.0-31.0) Mean Corpuscular Hemoglobin Concent 32.1 G/DL (32.0-36.0) 32.4 G/DL (32.0-36.0) 32.3 G/DL (32.0-36.0) Red Cell Distribution Width 14.8 % (11.6-14.8) 14.8 % (11.6-14.8) 15.2 % (11.6-14.8) Platelet Count 258 K/UL (150-450) 273 K/UL (150-450) 284 K/UL (150-450) Mean Platelet Volume 4.7 FL (6.5-10.1) 5.5 FL (6.5-10.1) 5.3 FL (6.5-10.1) Neutrophils (%) (Auto) 76.8 % (45.0-75.0) 80.7 % (45.0-75.0) 80.8 % (45.0-75.0) Lymphocytes (%) (Auto) 13.3 % (20.0-45.0) 11.3 % (20.0-45.0) 10.4 % (20.0-45.0) Monocytes (%) (Auto) 8.8 % (1.0-10.0) 7.4 % (1.0-10.0) 8.1 % (1.0-10.0) Eosinophils (%) (Auto) 0.0 % (0.0-3.0) 0.0 % (0.0-3.0) 0.0 % (0.0-3.0) Basophils (%) (Auto) 1.1 % (0.0-2.0) 0.6 % (0.0-2.0) 0.7 % (0.0-2.0) Sodium Level 142 MMOL/L (136-145) 144 MMOL/L (136-145) 144 MMOL/L (136-145) Potassium Level 3.3 MMOL/L (3.5-5.1) 3.5 MMOL/L (3.5-5.1) 3.6 MMOL/L (3.5-5.1) Chloride Level 105 MMOL/L (98-107) 108 MMOL/L (98-107) 107 MMOL/L (98-107) Carbon Dioxide Level 27 MMOL/L (21-32) 27 MMOL/L (21-32) 26 MMOL/L (21-32) Anion Gap 10 mmol/L (5-15) 9 mmol/L (5-15) 11 mmol/L (5-15) Blood Urea Nitrogen 12 mg/dL (7-18) 16 mg/dL (7-18) 17 mg/dL (7-18) Creatinine 1.0 MG/DL (0.55-1.30) 1.0 MG/DL (0.55-1.30) 1.1 MG/DL (0.55-1.30) Estimat Glomerular Filtration Rate > 60 mL/min (>60) > 60 mL/min (>60) > 60 mL/min (>60) Glucose Level 136 MG/DL (74-106) 157 MG/DL (74-106) 156 MG/DL (74-106) Uric Acid 1.7 MG/DL (2.6-7.2) 2.2 MG/DL (2.6-7.2) Calcium Level 8.6 MG/DL (8.5-10.1) 8.4 MG/DL (8.5-10.1) 8.7 MG/DL (8.5-10.1) Phosphorus Level 2.3 MG/DL (2.5-4.9) 3.1 MG/DL (2.5-4.9) 3.4 MG/DL (2.5-4.9) Magnesium Level 2.5 MG/DL (1.8-2.4) 2.6 MG/DL (1.8-2.4) 2.7 MG/DL (1.8-2.4) Total Bilirubin 0.3 MG/DL (0.2-1.0) 0.3 MG/DL (0.2-1.0) 0.4 MG/DL (0.2-1.0) Gamma Glutamyl Transpeptidase 27 U/L (5-85) Aspartate Amino Transf (AST/SGOT) 180 U/L (15-37) 99 U/L (15-37) 66 U/L (15-37) Alanine Aminotransferase (ALT/SGPT) 80 U/L (12-78) 77 U/L (12-78) 84 U/L (12-78) Alkaline Phosphatase 73 U/L (46-116) 63 U/L (46-116) 73 U/L (46-116) Total Creatine Kinase 7451 U/L (26-308) Total Protein 7.0 G/DL (6.4-8.2) 6.4 G/DL (6.4-8.2) 7.0 G/DL (6.4-8.2) Albumin 3.1 G/DL (3.4-5.0) 2.9 G/DL (3.4-5.0) 3.1 G/DL (3.4-5.0) Globulin 3.9 g/dL 3.5 g/dL 3.9 g/dL Albumin/Globulin Ratio 0.8 (1.0-2.7) 0.8 (1.0-2.7) 0.8 (1.0-2.7) C-Reactive Protein, Quantitative 1.7 mg/dL (0.00-0.90) 1.7 mg/dL (0.00-0.90) Pro-B-Type Natriuretic Peptide 65 pg/mL (0-125) 72 pg/mL (0-125) Height (Feet): 5 Height (Inches): 9.00 Weight (Pounds): 310 Objective Physical Exam General Appearance: well appearing, nad, obese Head: normocephalic ++ ogt Resp: normal breath sounds ++ vent Cardiovascular: normal rate Gastrointestinal: normal inspection, non tender, soft, normal bowel sounds, non -distended Msk: normal inspection, back normal Skin: normal inspection, normal color, no rash, warm/dry, palpation normal, well hydrated Lymphatic: normal inspection, no adenopathy Wade Bonds MD Dec 26, 2018 12:40
--- NOTE | 2018-12-26 12:46 | Nephrology Progress Note ---
Assessment/Plan Problem List: (1) Salicylate overdose (2) Psychosis (3) Anemia (4) Obesity (5) Hypokalemia (6) Rhabdomyolysis Assessment: high CPK Assessment HypoKalemia Mild Anemia s/p Acidosis resolved Respiratory failure Salicylate overdose Psychosis Asthma Obesity Plan Plan: trial of Lasix 40 IV once Fails weaning K , Mag , Phos supplement as needed no IV fluids weaning as possible taper steroids as possible IV Protonix Resp management per Dr hurt monitor renal parameters Urine studies Subjective ROS Limited/Unobtainable: Yes Objective Objective Last 24 Hour Vital Signs Date Time Temp Pulse Resp B/P (MAP) Pulse Ox O2 Delivery O2 Flow Rate FiO2 12/26/18 11:00 98 24 98 Mechanical Ventilator 70 102 24 70 12/26/18 08:56 97 12/26/18 08:56 90 24 70 12/26/18 07:15 90 24 98 Mechanical Ventilator 70 109 24 70 12/26/18 07:15 98 24 12/26/18 07:00 20 Endotracheal Tube 70 12/26/18 07:00 102 24 155/81 (105) 98 12/26/18 06:30 99.2 96 24 154/97 (116) 96 12/26/18 06:15 80 24 97 12/26/18 06:00 20 Endotracheal Tube 70 12/26/18 06:00 86 24 139/83 (101) 98 12/26/18 05:30 78 24 118/82 (94) 97 12/26/18 05:02 83 24 152/85 (107) 98 12/26/18 05:00 24 Endotracheal Tube 70 12/26/18 04:59 92 24 70 12/26/18 04:30 87 24 149/85 (106) 98 12/26/18 04:22 89 24 158/75 (102) 99 12/26/18 04:00 98.0 65 24 154/81 (105) 96 12/26/18 04:00 81 12/26/18 04:00 70 12/26/18 04:00 24 Endotracheal Tube 70 12/26/18 04:00 Mechanical Ventilator 12/26/18 03:45 68 23 142/79 (100) 95 12/26/18 03:30 71 24 149/82 (104) 95 12/26/18 03:15 74 24 141/85 (103) 96 12/26/18 03:03 79 24 96 Mechanical Ventilator 70 83 24 70 12/26/18 03:00 69 24 165/103 (123) 98 12/26/18 03:00 24 Endotracheal Tube 70 12/26/18 02:45 70 24 149/84 (105) 98 12/26/18 02:30 72 24 142/91 (108) 99 12/26/18 02:00 99.1 73 24 160/95 (116) 97 12/26/18 02:00 24 Endotracheal Tube 70 12/26/18 01:30 73 24 159/90 (113) 97 12/26/18 01:00 74 24 97 12/26/18 01:00 24 Endotracheal Tube 70 12/26/18 00:55 77 24 70 12/26/18 00:45 71 24 157/87 (110) 97 12/26/18 00:30 85 23 166/92 (116) 95 12/26/18 00:15 73 24 155/87 (109) 97 12/26/18 00:00 72 12/26/18 00:00 Mechanical Ventilator 12/26/18 00:00 24 Endotracheal Tube 70 12/26/18 00:00 98.8 74 24 155/84 (107) 96 12/26/18 00:00 70 12/25/18 23:52 98.9 12/25/18 23:45 78 24 151/87 (108) 96 12/25/18 23:30 74 24 171/86 (114) 97 12/25/18 23:22 24 Endotracheal Tube 70 12/25/18 23:21 24 Endotracheal Tube 70 12/25/18 23:15 84 23 158/90 (112) 97 12/25/18 23:15 89 24 97 Mechanical Ventilator 70 89 24 70 12/25/18 23:00 62 24 133/77 (95) 96 12/25/18 23:00 20 Endotracheal Tube 70 12/25/18 22:45 64 24 133/76 (95) 97 12/25/18 22:30 66 24 135/74 (94) 97 12/25/18 22:15 67 24 141/75 (97) 97 12/25/18 22:00 90 24 153/86 (108) 95 12/25/18 22:00 20 Endotracheal Tube 70 12/25/18 21:45 71 24 141/77 (98) 98 12/25/18 21:30 72 24 145/84 (104) 98 12/25/18 21:00 24 Endotracheal Tube 70 12/25/18 21:00 77 24 146/77 (100) 100 12/25/18 20:50 122 24 70 12/25/18 20:45 87 24 148/117 (127) 100 12/25/18 20:30 124 22 171/96 (121) 100 12/25/18 20:15 76 24 128/74 (92) 99 12/25/18 20:00 98.9 80 24 127/71 (89) 99 12/25/18 20:00 19 Endotracheal Tube 70 12/25/18 20:00 80 24 127/71 (89) 99 12/25/18 20:00 70 12/25/18 20:00 Mechanical Ventilator 12/25/18 20:00 81 12/25/18 19:30 80 24 151/82 (105) 89 12/25/18 19:03 77 24 96 Mechanical Ventilator 70 77 24 70 12/25/18 19:00 24 Mechanical Ventilator 70 12/25/18 19:00 80 24 144/76 (98) 96 12/25/18 18:30 81 24 142/84 (103) 99 12/25/18 18:00 24 Mechanical Ventilator 70 12/25/18 18:00 83 24 127/65 (85) 97 12/25/18 17:43 99.8 12/25/18 17:30 116 24 132/81 (98) 92 12/25/18 17:00 85 24 132/81 (98) 94 12/25/18 17:00 24 Mechanical Ventilator 70 12/25/18 16:53 89 24 Mechanical Ventilator 70 12/25/18 16:30 83 24 129/73 (91) 95 12/25/18 16:00 99.9 12/25/18 16:00 86 24 133/71 (91) 96 12/25/18 16:00 24 Mechanical Ventilator 70 12/25/18 16:00 Mechanical Ventilator 12/25/18 16:00 94 12/25/18 15:30 92 24 114/59 (77) 95 12/25/18 15:00 128 19 148/76 (100) 92 12/25/18 15:00 24 Mechanical Ventilator 70 12/25/18 14:40 91 24 94 Mechanical Ventilator 70 91 24 12/25/18 14:30 81 24 127/71 (89) 95 12/25/18 14:00 84 24 134/68 (90) 94 12/25/18 14:00 24 Mechanical Ventilator 70 12/25/18 13:30 86 24 129/70 (89) 94 12/25/18 13:29 24 Mechanical Ventilator 70 12/25/18 13:03 85 24 Mechanical Ventilator 40 12/25/18 13:00 70 12/25/18 13:00 24 Mechanical Ventilator 70 12/25/18 13:00 85 24 125/65 (85) 93 Intake and Output 12/25/18 12/26/18 19:00 07:00 Intake Total 1306 ml 864.6 ml Output Total 1000 ml 1175 ml Balance 306 ml -310.4 ml Free Water 100 ml 150 ml IV Total 766 ml 254.6 ml Tube Feeding 440 ml 400 ml Other 60 ml Output Urine Total 1000 ml 1175 ml Laboratory Tests 12/26/18 06:45: White Blood Count 17.7H, Red Blood Count 3.89L, Hemoglobin 12.1, Hematocrit 37.3 , Mean Corpuscular Volume 96, Mean Corpuscular Hemoglobin 31.0, Mean Corpuscular Hemoglobin Concent 32.3, Red Cell Distribution Width 15.2H, Platelet Count 284, Mean Platelet Volume 5.3L, Neutrophils (%) (Auto) 80.8H, Lymphocytes (%) (Auto) 10.4L, Monocytes (%) (Auto) 8.1, Eosinophils (%) (Auto) 0.0, Basophils (%) (Auto) 0.7, Sodium Level 144, Potassium Level 3.6, Chloride Level 107, Carbon Dioxide Level 26, Anion Gap 11, Blood Urea Nitrogen 17, Creatinine 1.1, Estimat Glomerular Filtration Rate > 60, Glucose Level 156H, Calcium Level 8.7, Phosphorus Level 3.4, Magnesium Level 2.7H, Total Bilirubin 0.4, Aspartate Amino Transf (AST/SGOT) 66H, Alanine Aminotransferase (ALT/SGPT) 84H, Alkaline Phosphatase 73, C-Reactive Protein, Quantitative 1.7H, Pro-B-Type Natriuretic Peptide 72, Total Protein 7.0, Albumin 3.1L, Globulin 3.9, Albumin/ Globulin Ratio 0.8L Height (Feet): 5 Height (Inches): 9.00 Weight (Pounds): 310 General Appearance: mild distress EENT: other - vented Cardiovascular: tachycardia Respiratory/Chest: decreased breath sounds Abdomen: soft Jerzy Boudreaux MD Dec 26, 2018 12:46
[2018-12-26] MEDS: fentaNYL Citrate 2500mcg in NS 250ml IV SCH (12:55)
[2018-12-26] MEDS: Solu-MEDROL 40mg Inj IVP SCH ×3 (12:55→23:39)
--- NOTE | 2018-12-26 13:33 | Cardiology Report ---
APPROVED REPORT EKG Measurement Heart [id number] Sinus tachycardia with premature supraventricular complexes Nonspecific T wave abnormality Abnormal ECG
--- NOTE | 2018-12-26 16:00 | NUR ---
NURSE NOTES: Patient continues to be anxious, asking many questions, and restless at this time. Patient fentanyl drip running at 150mcg/hr at this time. RASS -1 at this time. Will continue to monitor sedation level and titrate fentanyl per protocol as needed. Patient provided talk therapy as well as increased sedation to alleviate her anxiety. blood pressure 143/75, HR 83, SpO2 100%, and RR 24. Temp 100.0 at this time. Cooling measures provided again. Fan in the room. Patient remains on ventilator setting AC 24, tidal volume 550, FIO2 40%, and PEEP 7. Patient tolerating setting at this time. jauregui remains patent, asymptomatic, draining, and anchored. right hand 20G PIV and left antecubital 20G PIV remain patent and asymptomatic. Bed in low position with bed alarm on and call light in reach at this time. Patient oral care performed and repositioned at this time. Will continue to monitor.
[2018-12-26] MEDS: cefTRIAXone 1 GM in D5W 55 ML IVPB SCH (17:52)
--- NOTE | 2018-12-26 18:00 | NUR ---
NURSE NOTES: Blood pressure 135/78, HR 96, SpO2 100%, and RR 24. Patient cleaned and repositioned at this time. Oral care provided. Patient temperature now 99.8. Ice packs and fan provided. Fentanyl running at 150mcg/hr at this time. Patient RASS score -1 at this time. Will continue to monitor sedation level and titrate fentanyl drip per protocol. Patient bed in low position with bed alarm on and call light in reach at this time.
--- NOTE | 2018-12-26 19:35 | NUR ---
HAND-OFF: Report given to CLARENCE Clements. Patient anxious with RASS of -1 at this time. Fentanyl drip at 150mcg/hr. endorsed to follow up.
--- NOTE | 2018-12-26 19:38 | NUR ---
NURSE NOTES: PATIENT RESTLESSNESS, DID NOT FOLLOW COMMANDS, RESISTANT TO CARE AT THIS TIME, ON ETT TO VENT, AC24/TV550/FIO2 70%/PEEP7, O2 SATURATION 98% NOTED AT THIS TIME, ON OGT INTACT AND PATENT, ONGOING GLUCERNA 1.2 AT 40ML/HR, NO RESIDUE NOTED, KEPT HOB 30 DEGREES, ABDOMEN SOFT, NO BOWEL MOVEMENT STATUS, F/C INTACT AND PATENT, DARK REBECA URINE OUTED, PERIPHERAL LINE TO LEFT AC INTACT AND PATENT, RIGHT HAND SITE OCCLUDED, ON FENTANYL DRIP 150MCG/HR VIA LEFT SIDE PPL, 2 POINT SOFT RESTRAINTS STATUS FOR SAFETY, SCD'S TO BOTH LOWER LEGS, ON BED ALAR, MADE LOWER BED POSITION, PROVIDED CALL LIGHT WITHIN REACH, WILL CONTINUE TO MONITOR.
--- NOTE | 2018-12-26 20:34 | NUR ---
NURSE NOTES: PATIENT AGITATED, TRIED TO TOUCH ETT, GIVEN SEROQUEL 25MG VIA OGT, WILL CONTINUE TO MONITOR.
[2018-12-26] MEDS: LORazepam Inj 2mg/ml 1ml IV PRN (21:47)
--- NOTE | 2018-12-26 21:47 | NUR ---
NURSE NOTES: PATIENT AWOKE, AGITATED, TRIED TO TOUCH LINE, ON FENTANYL 200MCG/HR STATUS, GIVEN ATIVAN 1MG BY IVP SLOWLY PRN ORDERED, WILL CONTINUE TO MONITOR.
--- NOTE | 2018-12-26 22:04 | Cardiology Progress Note ---
Assessment/Plan Assessment/Plan 1. Sinus tachycardia, resolved, most likely due to hypoxemia, there is no need for AV carissa agents. 2. Acute respiratory failure due to right lung whiteout, s/p intubation and resolution. 3. History of chronic obstructive pulmonary disease. 4. History of salicylate overdose. 5. Morbid obesity. 6. Hyperthyroidism 7. Dyslipidemia Subjective Subjective Sinus rhythm at rate of 85. Intubated at FiO2 of 70%. Objective Last 24 Hour Vital Signs Date Time Temp Pulse Resp B/P (MAP) Pulse Ox O2 Delivery O2 Flow Rate FiO2 12/26/18 21:30 119 26 143/89 (107) 100 12/26/18 21:00 85 24 135/81 (99) 95 12/26/18 20:30 112 24 151/93 (112) 99 12/26/18 20:00 Mechanical Ventilator 12/26/18 20:00 70 12/26/18 20:00 98.6 94 23 142/87 (105) 98 12/26/18 19:50 85 24 99 Mechanical Ventilator 70 89 24 70 12/26/18 19:30 84 24 135/87 (103) 98 12/26/18 19:13 116 12/26/18 19:00 91 24 154/70 (98) 100 12/26/18 19:00 20 Mechanical Ventilator 70 12/26/18 18:30 86 24 132/75 (94) 99 12/26/18 18:00 108 24 96/37 (56) 100 12/26/18 18:00 24 Mechanical Ventilator 70 12/26/18 17:30 98 24 138/81 (100) 99 12/26/18 17:00 24 Mechanical Ventilator 70 12/26/18 17:00 103 24 149/79 (102) 99 12/26/18 16:49 99 24 70 12/26/18 16:30 102 23 147/90 (109) 99 12/26/18 16:30 86 24 147/90 (109) 100 12/26/18 16:00 70 12/26/18 16:00 121 12/26/18 16:00 22 Mechanical Ventilator 70 12/26/18 16:00 100.0 121 22 140/98 (112) 100 12/26/18 16:00 Mechanical Ventilator 12/26/18 15:30 98 24 134/77 (96) 98 12/26/18 15:09 103 24 97 Mechanical Ventilator 70 98 24 70 12/26/18 15:00 130 21 151/82 (105) 99 12/26/18 15:00 22 Mechanical Ventilator 70 12/26/18 14:52 96 150/84 12/26/18 14:30 24 Mechanical Ventilator 70 12/26/18 14:30 106 21 140/74 (96) 97 12/26/18 14:00 24 Mechanical Ventilator 70 12/26/18 14:00 94 24 133/83 (100) 96 12/26/18 13:45 24 Mechanical Ventilator 70 12/26/18 13:30 80 24 140/78 (98) 96 12/26/18 13:30 24 Mechanical Ventilator 70 12/26/18 13:15 24 Mechanical Ventilator 70 12/26/18 13:00 91 24 135/72 (93) 96 12/26/18 13:00 23 Mechanical Ventilator 70 12/26/18 12:55 24 Mechanical Ventilator 70 12/26/18 12:50 90 24 70 12/26/18 12:45 119 25 155/87 (109) 98 12/26/18 12:45 24 Mechanical Ventilator 70 12/26/18 12:30 24 Mechanical Ventilator 70 12/26/18 12:30 98 24 139/75 (96) 96 12/26/18 12:15 115 22 128/74 (92) 96 12/26/18 12:15 24 70 12/26/18 12:00 Mechanical Ventilator 12/26/18 12:00 70 12/26/18 12:00 99.8 101 24 132/72 (92) 70 12/26/18 12:00 24 Mechanical Ventilator 70 12/26/18 12:00 89 12/26/18 11:30 95 24 136/68 (90) 12/26/18 11:00 23 Mechanical Ventilator 70 12/26/18 11:00 90 24 159/92 (114) 96 12/26/18 11:00 98 24 98 Mechanical Ventilator 70 102 24 70 12/26/18 10:45 105 23 144/91 (108) 98 12/26/18 10:30 24 Mechanical Ventilator 70 12/26/18 10:30 80 24 147/113 (124) 97 12/26/18 10:15 80 24 147/113 (124) 97 12/26/18 10:00 78 24 143/74 (97) 97 12/26/18 10:00 20 Mechanical Ventilator 70 12/26/18 09:45 24 Mechanical Ventilator 70 12/26/18 09:30 24 Mechanical Ventilator 70 12/26/18 09:30 119 20 143/71 (95) 93 12/26/18 09:15 20 Mechanical Ventilator 70 12/26/18 09:00 25 Mechanical Ventilator 70 12/26/18 09:00 94 24 143/73 (96) 97 12/26/18 08:56 97 12/26/18 08:56 90 24 70 12/26/18 08:45 24 Mechanical Ventilator 70 12/26/18 08:30 20 Mechanical Ventilator 70 12/26/18 08:30 101 24 136/82 (100) 97 12/26/18 08:15 22 Mechanical Ventilator 70 12/26/18 08:00 85 12/26/18 08:00 Mechanical Ventilator 12/26/18 08:00 25 Mechanical Ventilator 70 12/26/18 08:00 70 12/26/18 08:00 99.0 86 24 122/67 (85) 99 12/26/18 07:30 106 23 130/69 (89) 96 12/26/18 07:15 90 24 98 Mechanical Ventilator 70 109 24 70 12/26/18 07:15 98 24 12/26/18 07:00 20 Endotracheal Tube 70 12/26/18 07:00 102 24 155/81 (105) 98 12/26/18 06:30 99.2 96 24 154/97 (116) 96 12/26/18 06:15 80 24 97 12/26/18 06:00 20 Endotracheal Tube 70 12/26/18 06:00 86 24 139/83 (101) 98 12/26/18 05:30 78 24 118/82 (94) 97 12/26/18 05:02 83 24 152/85 (107) 98 12/26/18 05:00 24 Endotracheal Tube 70 12/26/18 04:59 92 24 70 12/26/18 04:30 87 24 149/85 (106) 98 12/26/18 04:22 89 24 158/75 (102) 99 12/26/18 04:00 98.0 65 24 154/81 (105) 96 12/26/18 04:00 81 12/26/18 04:00 70 12/26/18 04:00 24 Endotracheal Tube 70 12/26/18 04:00 Mechanical Ventilator 12/26/18 03:45 68 23 142/79 (100) 95 12/26/18 03:30 71 24 149/82 (104) 95 12/26/18 03:15 74 24 141/85 (103) 96 12/26/18 03:03 79 24 96 Mechanical Ventilator 70 83 24 70 12/26/18 03:00 69 24 165/103 (123) 98 12/26/18 03:00 24 Endotracheal Tube 70 12/26/18 02:45 70 24 149/84 (105) 98 12/26/18 02:30 72 24 142/91 (108) 99 12/26/18 02:00 99.1 73 24 160/95 (116) 97 12/26/18 02:00 24 Endotracheal Tube 70 12/26/18 01:30 73 24 159/90 (113) 97 12/26/18 01:00 74 24 97 12/26/18 01:00 24 Endotracheal Tube 70 12/26/18 00:55 77 24 70 12/26/18 00:45 71 24 157/87 (110) 97 12/26/18 00:30 85 23 166/92 (116) 95 12/26/18 00:15 73 24 155/87 (109) 97 12/26/18 00:00 72 12/26/18 00:00 Mechanical Ventilator 12/26/18 00:00 24 Endotracheal Tube 70 12/26/18 00:00 98.8 74 24 155/84 (107) 96 12/26/18 00:00 70 12/25/18 23:52 98.9 12/25/18 23:45 78 24 151/87 (108) 96 12/25/18 23:30 74 24 171/86 (114) 97 12/25/18 23:22 24 Endotracheal Tube 70 12/25/18 23:21 24 Endotracheal Tube 70 12/25/18 23:15 84 23 158/90 (112) 97 12/25/18 23:15 89 24 97 Mechanical Ventilator 70 89 24 70 12/25/18 23:00 62 24 133/77 (95) 96 12/25/18 23:00 20 Endotracheal Tube 70 12/25/18 22:45 64 24 133/76 (95) 97 12/25/18 22:30 66 24 135/74 (94) 97 12/25/18 22:15 67 24 141/75 (97) 97 Intake and Output 12/25/18 12/26/18 18:59 06:59 Intake Total 1262 ml 918.6 ml Output Total 970 ml 1185 ml Balance 292 ml -266.4 ml Free Water 100 ml 150 ml IV Total 762 ml 268.6 ml Tube Feeding 400 ml 440 ml Other 60 ml Output Urine Total 970 ml 1185 ml Laboratory Tests Test 12/26/18 06:45 White Blood Count 17.7 K/UL (4.8-10.8) H Red Blood Count 3.89 M/UL (4.20-5.40) L Hemoglobin 12.1 G/DL (12.0-16.0) Hematocrit 37.3 % (37.0-47.0) Mean Corpuscular Volume 96 FL (80-99) Mean Corpuscular Hemoglobin 31.0 PG (27.0-31.0) Mean Corpuscular Hemoglobin Concent 32.3 G/DL (32.0-36.0) Red Cell Distribution Width 15.2 % (11.6-14.8) H Platelet Count 284 K/UL (150-450) Mean Platelet Volume 5.3 FL (6.5-10.1) L Neutrophils (%) (Auto) 80.8 % (45.0-75.0) H Lymphocytes (%) (Auto) 10.4 % (20.0-45.0) L Monocytes (%) (Auto) 8.1 % (1.0-10.0) Eosinophils (%) (Auto) 0.0 % (0.0-3.0) Basophils (%) (Auto) 0.7 % (0.0-2.0) Sodium Level 144 MMOL/L (136-145) Potassium Level 3.6 MMOL/L (3.5-5.1) Chloride Level 107 MMOL/L (98-107) Carbon Dioxide Level 26 MMOL/L (21-32) Anion Gap 11 mmol/L (5-15) Blood Urea Nitrogen 17 mg/dL (7-18) Creatinine 1.1 MG/DL (0.55-1.30) Estimat Glomerular Filtration Rate > 60 mL/min (>60) Glucose Level 156 MG/DL (74-106) H Calcium Level 8.7 MG/DL (8.5-10.1) Phosphorus Level 3.4 MG/DL (2.5-4.9) Magnesium Level 2.7 MG/DL (1.8-2.4) H Total Bilirubin 0.4 MG/DL (0.2-1.0) Aspartate Amino Transf (AST/SGOT) 66 U/L (15-37) H Alanine Aminotransferase (ALT/SGPT) 84 U/L (12-78) H Alkaline Phosphatase 73 U/L (46-116) C-Reactive Protein, Quantitative 1.7 mg/dL (0.00-0.90) H Pro-B-Type Natriuretic Peptide 72 pg/mL (0-125) Total Protein 7.0 G/DL (6.4-8.2) Albumin 3.1 G/DL (3.4-5.0) L Globulin 3.9 g/dL Albumin/Globulin Ratio 0.8 (1.0-2.7) L Microbiology Date/Time Source Procedure Growth Status 12/24/18 12:46 Sputum Gram Stain - Final Resulted 12/24/18 12:46 Sputum Culture - Preliminary Usual Upper Respiratory Candice Resulted Objective HEENT: Atraumatic and normocephalic. Anicteric. Pupils are equal, round, and reactive to light and accommodation, intubated. NECK: JVP cannot be assessed. No carotid bruit. CARDIOVASCULAR: Normal S1, S2. Regular rate and rhythm. No murmurs, gallops, or rubs. PMI is at fourth intercostal space in the midclavicular line. LUNGS: Diminished breath sounds in both lungs. ABDOMEN: Soft, obese. No hepatosplenomegaly. Positive bowel sounds. EXTREMITIES: No evidence of edema, clubbing, or cyanosis. Velasquez Staton MD Dec 26, 2018 22:04
--- NOTE | 2018-12-26 23:10 | NUR ---
NURSE NOTES: PATIENT SEDATED IN FENTANYL DRIP 200MCG/HR, RASS SCORE -2 AT THIS TIME, WILL CONTINUE TO MONITOR.
--- NOTE | 2018-12-26 23:43 | General Progress Note ---
Assessment/Plan Problem List: (1) Opioid dependence ICD Codes: F11.20 - Opioid dependence, uncomplicated SNOMED: 76684149 (2) Altered level of consciousness ICD Codes: R40.4 - Transient alteration of awareness SNOMED: 6979526 (3) Back pain ICD Codes: M54.9 - Dorsalgia, unspecified SNOMED: 037957611 (4) Opiate dependence ICD Codes: F11.20 - Opioid dependence, uncomplicated SNOMED: 43627352 (5) Depression ICD Codes: F32.9 - Major depressive disorder, single episode, unspecified SNOMED: 77556129 (6) Peripheral edema ICD Codes: R60.9 - Edema, unspecified SNOMED: 242035590 (7) Leg pain ICD Codes: M79.606 - Pain in leg, unspecified SNOMED: 75035664 (8) Headache ICD Codes: R51 - Headache SNOMED: 56738775 (9) COPD exacerbation ICD Codes: J44.1 - Chronic obstructive pulmonary disease with (acute) exacerbation SNOMED: 566580851 (10) Psychosis ICD Codes: F29 - Unsp psychosis not due to a substance or known physiol cond SNOMED: 45484232 (11) Respiratory failure ICD Codes: J96.90 - Respiratory failure, unspecified, unspecified whether with hypoxia or hypercapnia SNOMED: 780656587 (12) Salicylate overdose ICD Codes: T39.091A - Poisoning by salicylates, accidental (unintentional), initial encounter SNOMED: 068701771, 9983290 (13) Asthma ICD Codes: J45.909 - Unspecified asthma, uncomplicated SNOMED: 624333840, 9579365 (14) Anemia ICD Codes: D64.9 - Anemia, unspecified SNOMED: 197935733 Status: progressing, unchanged Assessment/Plan: obesity r/o pna sepsis reviewed chart nad lab and meds no wheezing no wheezing afebrile no h/h Subjective ROS Limited/Unobtainable: Yes Allergies: Coded Allergies: No Known Allergies (Unverified , 11/07/13) Objective Last 24 Hour Vital Signs Date Time Temp Pulse Resp B/P (MAP) Pulse Ox O2 Delivery O2 Flow Rate FiO2 12/26/18 23:30 77 24 125/70 (88) 93 12/26/18 23:13 80 24 99 Mechanical Ventilator 70 89 24 70 12/26/18 23:00 76 24 130/71 (90) 96 12/26/18 22:30 79 24 145/82 (103) 97 12/26/18 22:00 79 24 133/79 (97) 95 12/26/18 22:00 24 Mechanical Ventilator 70 12/26/18 21:30 119 26 143/89 (107) 100 12/26/18 21:00 24 Mechanical Ventilator 70 12/26/18 21:00 85 24 135/81 (99) 95 12/26/18 20:30 112 24 151/93 (112) 99 12/26/18 20:00 Mechanical Ventilator 12/26/18 20:00 23 Mechanical Ventilator 70 12/26/18 20:00 70 12/26/18 20:00 98.6 94 23 142/87 (105) 98 12/26/18 19:55 24 Mechanical Ventilator 70 12/26/18 19:50 26 Mechanical Ventilator 70 12/26/18 19:50 85 24 99 Mechanical Ventilator 70 89 24 70 12/26/18 19:45 24 Mechanical Ventilator 70 12/26/18 19:40 24 Mechanical Ventilator 70 12/26/18 19:30 84 24 135/87 (103) 98 12/26/18 19:13 116 12/26/18 19:00 91 24 154/70 (98) 100 12/26/18 19:00 20 Mechanical Ventilator 70 12/26/18 18:30 86 24 132/75 (94) 99 12/26/18 18:00 108 24 96/37 (56) 100 12/26/18 18:00 24 Mechanical Ventilator 70 12/26/18 17:30 98 24 138/81 (100) 99 12/26/18 17:00 24 Mechanical Ventilator 70 12/26/18 17:00 103 24 149/79 (102) 99 12/26/18 16:49 99 24 70 12/26/18 16:30 102 23 147/90 (109) 99 12/26/18 16:30 86 24 147/90 (109) 100 12/26/18 16:00 70 12/26/18 16:00 121 12/26/18 16:00 22 Mechanical Ventilator 70 12/26/18 16:00 100.0 121 22 140/98 (112) 100 12/26/18 16:00 Mechanical Ventilator 12/26/18 15:30 98 24 134/77 (96) 98 12/26/18 15:09 103 24 97 Mechanical Ventilator 70 98 24 70 12/26/18 15:00 130 21 151/82 (105) 99 12/26/18 15:00 22 Mechanical Ventilator 70 12/26/18 14:52 96 150/84 12/26/18 14:30 24 Mechanical Ventilator 70 12/26/18 14:30 106 21 140/74 (96) 97 12/26/18 14:00 24 Mechanical Ventilator 70 12/26/18 14:00 94 24 133/83 (100) 96 12/26/18 13:45 24 Mechanical Ventilator 70 12/26/18 13:30 80 24 140/78 (98) 96 12/26/18 13:30 24 Mechanical Ventilator 70 12/26/18 13:15 24 Mechanical Ventilator 70 12/26/18 13:00 91 24 135/72 (93) 96 12/26/18 13:00 23 Mechanical Ventilator 70 12/26/18 12:55 24 Mechanical Ventilator 70 12/26/18 12:50 90 24 70 12/26/18 12:45 119 25 155/87 (109) 98 12/26/18 12:45 24 Mechanical Ventilator 70 12/26/18 12:30 24 Mechanical Ventilator 70 12/26/18 12:30 98 24 139/75 (96) 96 12/26/18 12:15 115 22 128/74 (92) 96 12/26/18 12:15 24 70 12/26/18 12:00 Mechanical Ventilator 12/26/18 12:00 70 12/26/18 12:00 99.8 101 24 132/72 (92) 70 12/26/18 12:00 24 Mechanical Ventilator 70 12/26/18 12:00 89 12/26/18 11:30 95 24 136/68 (90) 12/26/18 11:00 23 Mechanical Ventilator 70 12/26/18 11:00 90 24 159/92 (114) 96 12/26/18 11:00 98 24 98 Mechanical Ventilator 70 102 24 70 12/26/18 10:45 105 23 144/91 (108) 98 12/26/18 10:30 24 Mechanical Ventilator 70 12/26/18 10:30 80 24 147/113 (124) 97 12/26/18 10:15 80 24 147/113 (124) 97 12/26/18 10:00 78 24 143/74 (97) 97 12/26/18 10:00 20 Mechanical Ventilator 70 12/26/18 09:45 24 Mechanical Ventilator 70 12/26/18 09:30 24 Mechanical Ventilator 70 12/26/18 09:30 119 20 143/71 (95) 93 12/26/18 09:15 20 Mechanical Ventilator 70 12/26/18 09:00 25 Mechanical Ventilator 70 12/26/18 09:00 94 24 143/73 (96) 97 12/26/18 08:56 97 12/26/18 08:56 90 24 70 12/26/18 08:45 24 Mechanical Ventilator 70 12/26/18 08:30 20 Mechanical Ventilator 70 12/26/18 08:30 101 24 136/82 (100) 97 12/26/18 08:15 22 Mechanical Ventilator 70 12/26/18 08:00 85 12/26/18 08:00 Mechanical Ventilator 12/26/18 08:00 25 Mechanical Ventilator 70 12/26/18 08:00 70 12/26/18 08:00 99.0 86 24 122/67 (85) 99 12/26/18 07:30 106 23 130/69 (89) 96 12/26/18 07:15 90 24 98 Mechanical Ventilator 70 109 24 70 12/26/18 07:15 98 24 12/26/18 07:00 20 Endotracheal Tube 70 12/26/18 07:00 102 24 155/81 (105) 98 12/26/18 06:30 99.2 96 24 154/97 (116) 96 12/26/18 06:15 80 24 97 12/26/18 06:00 20 Endotracheal Tube 70 12/26/18 06:00 86 24 139/83 (101) 98 12/26/18 05:30 78 24 118/82 (94) 97 12/26/18 05:02 83 24 152/85 (107) 98 12/26/18 05:00 24 Endotracheal Tube 70 12/26/18 04:59 92 24 70 12/26/18 04:30 87 24 149/85 (106) 98 12/26/18 04:22 89 24 158/75 (102) 99 12/26/18 04:00 98.0 65 24 154/81 (105) 96 12/26/18 04:00 81 12/26/18 04:00 70 12/26/18 04:00 24 Endotracheal Tube 70 12/26/18 04:00 Mechanical Ventilator 12/26/18 03:45 68 23 142/79 (100) 95 12/26/18 03:30 71 24 149/82 (104) 95 12/26/18 03:15 74 24 141/85 (103) 96 12/26/18 03:03 79 24 96 Mechanical Ventilator 70 83 24 70 12/26/18 03:00 69 24 165/103 (123) 98 12/26/18 03:00 24 Endotracheal Tube 70 12/26/18 02:45 70 24 149/84 (105) 98 12/26/18 02:30 72 24 142/91 (108) 99 12/26/18 02:00 99.1 73 24 160/95 (116) 97 12/26/18 02:00 24 Endotracheal Tube 70 12/26/18 01:30 73 24 159/90 (113) 97 12/26/18 01:00 74 24 97 12/26/18 01:00 24 Endotracheal Tube 70 12/26/18 00:55 77 24 70 12/26/18 00:45 71 24 157/87 (110) 97 12/26/18 00:30 85 23 166/92 (116) 95 12/26/18 00:15 73 24 155/87 (109) 97 12/26/18 00:00 72 12/26/18 00:00 Mechanical Ventilator 12/26/18 00:00 24 Endotracheal Tube 70 12/26/18 00:00 98.8 74 24 155/84 (107) 96 12/26/18 00:00 70 12/25/18 23:52 98.9 12/25/18 23:45 78 24 151/87 (108) 96 Intake and Output 12/25/18 12/26/18 19:00 07:00 Intake Total 1306 ml 864.6 ml Output Total 1000 ml 1175 ml Balance 306 ml -310.4 ml Free Water 100 ml 150 ml IV Total 766 ml 254.6 ml Tube Feeding 440 ml 400 ml Other 60 ml Output Urine Total 1000 ml 1175 ml Laboratory Tests 12/26/18 06:45: White Blood Count 17.7H, Red Blood Count 3.89L, Hemoglobin 12.1, Hematocrit 37.3 , Mean Corpuscular Volume 96, Mean Corpuscular Hemoglobin 31.0, Mean Corpuscular Hemoglobin Concent 32.3, Red Cell Distribution Width 15.2H, Platelet Count 284, Mean Platelet Volume 5.3L, Neutrophils (%) (Auto) 80.8H, Lymphocytes (%) (Auto) 10.4L, Monocytes (%) (Auto) 8.1, Eosinophils (%) (Auto) 0.0, Basophils (%) (Auto) 0.7, Sodium Level 144, Potassium Level 3.6, Chloride Level 107, Carbon Dioxide Level 26, Anion Gap 11, Blood Urea Nitrogen 17, Creatinine 1.1, Estimat Glomerular Filtration Rate > 60, Glucose Level 156H, Calcium Level 8.7, Phosphorus Level 3.4, Magnesium Level 2.7H, Total Bilirubin 0.4, Aspartate Amino Transf (AST/SGOT) 66H, Alanine Aminotransferase (ALT/SGPT) 84H, Alkaline Phosphatase 73, C-Reactive Protein, Quantitative 1.7H, Pro-B-Type Natriuretic Peptide 72, Total Protein 7.0, Albumin 3.1L, Globulin 3.9, Albumin/ Globulin Ratio 0.8L Height (Feet): 5 Height (Inches): 9.00 Weight (Pounds): 310 Neck: supple Cardiovascular: regularly irregular Respiratory/Chest: lungs clear Jasmine Joe MD Dec 26, 2018 23:43
[2018-12-27] VITALS (48 sets, daily range): BP systolic 109–169; BP diastolic 63–98
--- NOTE | 2018-12-27 01:08 | NUR ---
NURSE NOTES: PATIENT ASLEEP STATUS, NO ACUTE DIS TRESS NOTED AT THIS TIME.
--- NOTE | 2018-12-27 03:10 | NUR ---
NURSE NOTES: PATIENT DROWSY STATUS, NO PAIN NOTED.
[2018-12-27] MEDS: fentaNYL Citrate 2500mcg in NS 250ml IV SCH ×2 (03:18→18:16)
[2018-12-27] MEDS: Acetylcysteine 20% Soln 4ml HHN SCH ×6 (03:22→23:15)
[2018-12-27] MEDS: Albuterol/Ipratropium 3ml neb HHN SCH ×6 (03:22→23:15)
--- NOTE | 2018-12-27 05:20 | NUR ---
NURSE NOTES: ORAL CARE AND MORNING CARE WAS DONE, NO BOWEL MOVEMENT STATUS.
[2018-12-27 05:25] LABS: HEMATOCRIT 35.4 % (37.0-47.0); HEMOGLOBIN 11.4 G/DL (12.0-16.0); MEAN CORPUSCULAR VOLUME 97 FL (80-99); PLATELET COUNT 267 K/UL (150-450); RED BLOOD COUNT 3.66 M/UL (4.20-5.40); RED CELL DISTRIBUTION WIDTH 14.7 % (11.6-14.8); WHITE BLOOD COUNT 18.1 K/UL (4.8-10.8)
[2018-12-27] MEDS: Solu-MEDROL 40mg Inj IVP SCH ×4 (05:48→23:39)
[2018-12-27] MEDS: NovoLOG Insulin Flexpen SUBQ SCH ×4 (05:49→23:47)
[2018-12-27 05:51] LABS: ALANINE AMINOTRANSFERASE 86 U/L (12-78); ALBUMIN 3.1 G/DL (3.4-5.0); ALBUMIN/GLOBULIN RATIO 0.9 (1.0-2.7); ALKALINE PHOSPHATASE 68 U/L (46-116); ANION GAP 13 mmol/L (5-15); ASPARTATE AMINO TRANSFERASE 48 U/L (15-37); BILIRUBIN,TOTAL 0.4 MG/DL (0.2-1.0); BLOOD UREA NITROGEN 20 mg/dL (7-18); CALCIUM 8.9 MG/DL (8.5-10.1); CARBON DIOXIDE 24 MMOL/L (21-32); CHLORIDE 108 MMOL/L (98-107); CREATININE 1.1 MG/DL (0.55-1.30); PHOSPHORUS 3.4 MG/DL (2.5-4.9); SODIUM 145 MMOL/L (136-145)
--- NOTE | 2018-12-27 06:36 | NUR ---
NURSE NOTES: NO ACUTE DISTRESS NOTED AT THIS TIME, KEPT NPO SINCE 6AM PER WEANING PROTOCOLS.
--- NOTE | 2018-12-27 07:32 | NUR ---
HAND-OFF: Report given to CLARENCE KUMAR.
--- NOTE | 2018-12-27 09:30 | NUR ---
NURSE NOTES: ABG obtained to titrate the FIO2 and begin weaning patient is aware of plan and is doing well on 50% FIO2
[2018-12-27] MEDS: Pantoprazole Inj IVP SCH ×2 (09:59→20:38)
--- NOTE | 2018-12-27 10:10 | General Progress Note ---
Assessment/Plan Status: progressing, unchanged Assessment/Plan: Problems: (1) Anemia ICD Codes: D64.9 - Anemia, unspecified SNOMED: 548010166 (2) Salicylate overdose ICD Codes: T39.091A - Poisoning by salicylates, accidental (unintentional), initial encounter SNOMED: 140044530, 7942553 (3) Respiratory failure ICD Codes: J96.90 - Respiratory failure, unspecified, unspecified whether with hypoxia or hypercapnia SNOMED: 838541010 (4) Suicidal intent ICD Codes: R45.851 - Suicidal ideations SNOMED: 874141463 Status: unchanged Status Narrative Discussed with Dr. Saldana. Assessment/Plan No plans for GI procedures at this time Medical management for salicylate overdose TF restarted today Electrolyte correction anemia work up OB stool r/o GI bleed monitor H&H, prn transfusions bowel regimen ppi fu labs weaning per pulm team Subjective ROS Limited/Unobtainable: No Allergies: Coded Allergies: No Known Allergies (Unverified , 11/07/13) Objective Last 24 Hour Vital Signs Date Time Temp Pulse Resp B/P (MAP) Pulse Ox O2 Delivery O2 Flow Rate FiO2 12/27/18 09:58 106 143/80 12/27/18 08:30 86 24 145/89 (107) 97 12/27/18 08:00 99.3 85 24 139/89 (106) 97 12/27/18 08:00 Mechanical Ventilator 12/27/18 08:00 70 12/27/18 07:30 24 Mechanical Ventilator 70 12/27/18 07:30 90 24 145/98 (114) 97 12/27/18 07:25 24 Mechanical Ventilator 70 12/27/18 07:20 24 Mechanical Ventilator 70 12/27/18 07:15 24 Mechanical Ventilator 70 12/27/18 07:10 24 Mechanical Ventilator 70 12/27/18 07:00 24 Mechanical Ventilator 70 12/27/18 07:00 102 24 138/70 (92) 96 12/27/18 07:00 104 25 Mechanical Ventilator 70 12/27/18 06:50 24 Mechanical Ventilator 70 12/27/18 06:45 24 Mechanical Ventilator 70 12/27/18 06:30 87 24 138/79 (98) 99 12/27/18 06:00 93 24 133/70 (91) 98 12/27/18 06:00 24 Mechanical Ventilator 70 12/27/18 05:41 123 24 Mechanical Ventilator 70 12/27/18 05:30 100 24 137/74 (95) 97 12/27/18 05:00 108 24 138/91 (107) 96 12/27/18 05:00 24 70 12/27/18 04:30 91 24 160/74 (102) 95 12/27/18 04:00 70 12/27/18 04:00 98.9 84 24 138/77 (97) 93 12/27/18 04:00 Mechanical Ventilator 12/27/18 04:00 24 Mechanical Ventilator 70 12/27/18 04:00 84 12/27/18 03:30 72 24 134/76 (95) 97 12/27/18 03:22 71 24 99 Mechanical Ventilator 70 74 23 70 12/27/18 03:18 24 Mechanical Ventilator 70 12/27/18 03:00 74 24 135/81 (99) 97 12/27/18 03:00 24 Mechanical Ventilator 70 12/27/18 02:30 76 24 122/68 (86) 96 12/27/18 02:00 80 24 125/70 (88) 97 12/27/18 02:00 24 Mechanical Ventilator 70 12/27/18 01:30 80 24 133/77 (95) 97 12/27/18 01:00 80 24 142/74 (96) 98 12/27/18 01:00 24 Mechanical Ventilator 70 12/27/18 00:50 82 23 Mechanical Ventilator 70 12/27/18 00:30 82 24 162/81 (108) 95 12/27/18 00:00 98.7 78 24 144/79 (100) 93 12/27/18 00:00 80 12/27/18 00:00 Mechanical Ventilator 12/27/18 00:00 24 Mechanical Ventilator 70 12/27/18 00:00 70 12/26/18 23:54 76 12/26/18 23:30 77 24 125/70 (88) 93 12/26/18 23:13 80 24 99 Mechanical Ventilator 70 89 24 70 12/26/18 23:00 24 Mechanical Ventilator 70 12/26/18 23:00 76 24 130/71 (90) 96 12/26/18 22:30 79 24 145/82 (103) 97 12/26/18 22:00 79 24 133/79 (97) 95 12/26/18 22:00 24 Mechanical Ventilator 70 12/26/18 21:30 119 26 143/89 (107) 100 12/26/18 21:30 84 24 Mechanical Ventilator 70 12/26/18 21:00 24 Mechanical Ventilator 70 12/26/18 21:00 85 24 135/81 (99) 95 12/26/18 20:30 112 24 151/93 (112) 99 12/26/18 20:00 Mechanical Ventilator 12/26/18 20:00 23 Mechanical Ventilator 70 12/26/18 20:00 70 12/26/18 20:00 98.6 94 23 142/87 (105) 98 12/26/18 19:55 24 Mechanical Ventilator 70 12/26/18 19:50 26 Mechanical Ventilator 70 12/26/18 19:50 85 24 99 Mechanical Ventilator 70 89 24 70 12/26/18 19:45 24 Mechanical Ventilator 70 12/26/18 19:40 24 Mechanical Ventilator 70 12/26/18 19:30 84 24 135/87 (103) 98 12/26/18 19:13 116 12/26/18 19:00 91 24 154/70 (98) 100 12/26/18 19:00 20 Mechanical Ventilator 70 12/26/18 18:30 86 24 132/75 (94) 99 12/26/18 18:00 108 24 96/37 (56) 100 12/26/18 18:00 24 Mechanical Ventilator 70 12/26/18 17:30 98 24 138/81 (100) 99 12/26/18 17:00 24 Mechanical Ventilator 70 12/26/18 17:00 103 24 149/79 (102) 99 12/26/18 16:49 99 24 70 12/26/18 16:30 102 23 147/90 (109) 99 12/26/18 16:30 86 24 147/90 (109) 100 12/26/18 16:00 70 12/26/18 16:00 121 12/26/18 16:00 22 Mechanical Ventilator 70 12/26/18 16:00 100.0 121 22 140/98 (112) 100 12/26/18 16:00 Mechanical Ventilator 12/26/18 15:30 98 24 134/77 (96) 98 12/26/18 15:09 103 24 97 Mechanical Ventilator 70 98 24 70 12/26/18 15:00 130 21 151/82 (105) 99 12/26/18 15:00 22 Mechanical Ventilator 70 12/26/18 14:52 96 150/84 12/26/18 14:30 24 Mechanical Ventilator 70 12/26/18 14:30 106 21 140/74 (96) 97 12/26/18 14:00 24 Mechanical Ventilator 70 12/26/18 14:00 94 24 133/83 (100) 96 12/26/18 13:45 24 Mechanical Ventilator 70 12/26/18 13:30 80 24 140/78 (98) 96 12/26/18 13:30 24 Mechanical Ventilator 70 12/26/18 13:15 24 Mechanical Ventilator 70 12/26/18 13:00 91 24 135/72 (93) 96 12/26/18 13:00 23 Mechanical Ventilator 70 12/26/18 12:55 24 Mechanical Ventilator 70 12/26/18 12:50 90 24 70 12/26/18 12:45 119 25 155/87 (109) 98 12/26/18 12:45 24 Mechanical Ventilator 12/26/18 12:30 24 Mechanical Ventilator 70 12/26/18 12:30 98 24 139/75 (96) 96 12/26/18 12:15 115 22 128/74 (92) 96 12/26/18 12:15 24 70 12/26/18 12:00 Mechanical Ventilator 12/26/18 12:00 70 12/26/18 12:00 99.8 101 24 132/72 (92) 70 12/26/18 12:00 24 Mechanical Ventilator 12/26/18 12:00 89 12/26/18 11:30 95 24 136/68 (90) 12/26/18 11:00 23 Mechanical Ventilator 70 12/26/18 11:00 90 24 159/92 (114) 96 12/26/18 11:00 98 24 98 Mechanical Ventilator 70 102 24 70 12/26/18 10:45 105 23 144/91 (108) 98 12/26/18 10:30 24 Mechanical Ventilator 70 12/26/18 10:30 80 24 147/113 (124) 97 12/26/18 10:15 80 24 147/113 (124) 97 Intake and Output 12/26/18 12/27/18 19:00 07:00 Intake Total 685.75 ml 686 ml Output Total 1100 ml 615 ml Balance -414.25 ml 71 ml Free Water 30 ml IV Total 215.75 ml 236 ml Tube Feeding 440 ml 400 ml Other 50 ml Output Urine Total 1100 ml 615 ml Laboratory Tests 12/27/18 03:00: White Blood Count 18.1H, Red Blood Count 3.66L, Hemoglobin 11.4L, Hematocrit 35.4L, Mean Corpuscular Volume 97, Mean Corpuscular Hemoglobin 31.3H, Mean Corpuscular Hemoglobin Concent 32.3, Red Cell Distribution Width 14.7, Platelet Count 267, Mean Platelet Volume 5.1L, Neutrophils (%) (Auto) , Lymphocytes (%) ( Auto) , Monocytes (%) (Auto) , Eosinophils (%) (Auto) , Basophils (%) (Auto) , Differential Total Cells Counted 100, Neutrophils % (Manual) 74, Lymphocytes % ( Manual) 21, Monocytes % (Manual) 5, Eosinophils % (Manual) 0, Basophils % ( Manual) 0, Band Neutrophils 0, Platelet Estimate Adequate, Platelet Morphology Normal, Polychromasia 1+, Anisocytosis 1+, Sodium Level 145, Potassium Level 4.0 , Chloride Level 108H, Carbon Dioxide Level 24, Anion Gap 13, Blood Urea Nitrogen 20H, Creatinine 1.1, Estimat Glomerular Filtration Rate > 60, Glucose Level 151H, Uric Acid 3.2, Calcium Level 8.9, Phosphorus Level 3.4, Magnesium Level 2.6H, Total Bilirubin 0.4, Aspartate Amino Transf (AST/SGOT) 48H, Alanine Aminotransferase (ALT/SGPT) 86H, Alkaline Phosphatase 68, C-Reactive Protein, Quantitative 2.4H, Pro-B-Type Natriuretic Peptide 68, Total Protein 6.4, Albumin 3.1L, Globulin 3.3, Albumin/Globulin Ratio 0.9L 12/27/18 08:57: Arterial Blood pH 7.471H, Arterial Blood Partial Pressure CO2 35.0, Arterial Blood Partial Pressure O2 92.5, Arterial Blood HCO3 25.0, Arterial Blood Oxygen Saturation 96.5, Arterial Blood Base Excess 1.6, Luis Test Positive Height (Feet): 5 Height (Inches): 9.00 Weight (Pounds): 314 General Appearance: no apparent distress EENT: normal ENT inspection Neck: supple Cardiovascular: normal rate Respiratory/Chest: decreased breath sounds Abdomen: normal bowel sounds, non tender, soft Extremities: non-tender Vosoghi,Vladimir MD Dec 27, 2018 10:10
--- NOTE | 2018-12-27 10:30 | NUR ---
NURSE NOTES: Spoke with Dr. Boudreaux regarding labs this morning, ordered to have lasix one time to decrease fluid in lungs, will continue to monitor.
[2018-12-27] MEDS ORDERED: NS 275ml ONE (10:56)
--- NOTE | 2018-12-27 11:58 | NUR ---
RD ASSESSMENT & RECOMMENDATIONS SEE CARE ACTIVITY FOR COMPLETE ASSESSMENT DAILY ESTIMATED NEEDS: Needs based on Critical care, morbidly obese 11-14 kcal/ kg actual body wt (143kg) kcals/kg 4919-6657 total kcals 2-2.5g/kg IBW (66kg) g protein/kg 132-165 g total protein Fluid per MD, on lasix NUTRITION DIAGNOSIS: Swallowing difficulty R/T respiratory status as evidenced by orally intubated and sedated, on OGT feeding. (CURRENT TF: Glucerna 1.2 @ 40ml/hr x 24 hrs) PO DIET RECOMMENDATIONS: POST EXTUBATION-> CCHO LOW, CARDIAC/ texture per [employer] or as tolerated ENTERAL NUTRITION RECOMMENDATIONS: Vital AF 1.2 @ 55ml/hr x 24 hrs + Prosource 1pkt TID to provide 1320ml, 1584kcal, 99g + 33g prot, 811ml free water * Rec TF change to Vital AF 1.2 for critical care * Initiate Vital AF 1.2 @ 25ml/hr x 6hrs, advance 10ml q 4-6 hrs as tolerated to goal rate * Add Prosource 1pkt TID to meet protein needs * HOB over 30 degrees/ water flush per MD ADDITIONAL RECOMMENDATIONS: * CALIBRATED bedscale wt for accurate CBW * Monitor lytes daily, replete as needed * Monitor BGs closely while on Solumedrol
--- NOTE | 2018-12-27 12:07 | Infectious Diseases Prog Note ---
Assessment/Plan Assessment/Plan IMPRESSION: Sepsis or systemic inflammatory response syndrome, COPD, Hypercapnic respiratory failure, s Salicylate toxicity, Morbid obesity. Leukocytosis worsening RECOMMENDATION: We will continue ceftriaxone. add Doxycycline Sputum culture: normal aniyah& Staph aureus We will follow up the cultures. Subjective ROS Limited/Unobtainable: Yes Constitutional: Reports: fever - T ohp=298 Respiratory: Reports: other - become hypoxic with decrease in FIO2 Neurologic: Reports: other - on restraint Allergies: Coded Allergies: No Known Allergies (Unverified , 11/07/13) Objective Vital Signs Last 24 Hour Vital Signs Date Time Temp Pulse Resp B/P (MAP) Pulse Ox O2 Delivery O2 Flow Rate FiO2 12/27/18 12:00 24 Mechanical Ventilator 40 12/27/18 11:57 86 12/27/18 11:40 94 24 96 Mechanical Ventilator 12/27/18 11:30 99 24 111/84 (93) 95 12/27/18 11:15 98 24 40 12/27/18 11:00 24 Mechanical Ventilator 50 12/27/18 11:00 98 24 137/91 (106) 96 12/27/18 10:30 90 24 142/83 (102) 95 12/27/18 10:00 24 Mechanical Ventilator 50 12/27/18 10:00 91 24 145/85 (105) 95 12/27/18 09:58 106 143/80 12/27/18 09:30 92 24 134/85 (101) 96 12/27/18 09:19 50 12/27/18 09:06 106 24 70 12/27/18 09:00 24 Mechanical Ventilator 70 12/27/18 09:00 89 24 135/94 (108) 99 12/27/18 08:30 86 24 145/89 (107) 97 12/27/18 08:00 83 12/27/18 08:00 99.3 85 24 139/89 (106) 97 12/27/18 08:00 24 Mechanical Ventilator 70 12/27/18 08:00 Mechanical Ventilator 12/27/18 08:00 70 12/27/18 07:30 24 Mechanical Ventilator 70 12/27/18 07:30 90 24 145/98 (114) 97 12/27/18 07:25 24 Mechanical Ventilator 70 12/27/18 07:20 24 Mechanical Ventilator 70 12/27/18 07:15 24 Mechanical Ventilator 70 12/27/18 07:10 98 24 100 Mechanical Ventilator 12/27/18 07:10 24 Mechanical Ventilator 70 12/27/18 07:00 24 Mechanical Ventilator 70 12/27/18 07:00 102 24 138/70 (92) 96 12/27/18 07:00 104 25 Mechanical Ventilator 70 12/27/18 06:50 24 Mechanical Ventilator 70 12/27/18 06:45 24 Mechanical Ventilator 70 12/27/18 06:30 87 24 138/79 (98) 99 12/27/18 06:00 93 24 133/70 (91) 98 12/27/18 06:00 24 Mechanical Ventilator 70 12/27/18 05:41 123 24 Mechanical Ventilator 70 12/27/18 05:30 100 24 137/74 (95) 97 12/27/18 05:00 108 24 138/91 (107) 96 12/27/18 05:00 24 70 12/27/18 04:30 91 24 160/74 (102) 95 12/27/18 04:00 70 12/27/18 04:00 98.9 84 24 138/77 (97) 93 12/27/18 04:00 Mechanical Ventilator 12/27/18 04:00 24 Mechanical Ventilator 70 12/27/18 04:00 84 12/27/18 03:30 72 24 134/76 (95) 97 12/27/18 03:22 71 24 99 Mechanical Ventilator 70 74 23 70 12/27/18 03:18 24 Mechanical Ventilator 70 12/27/18 03:00 74 24 135/81 (99) 97 12/27/18 03:00 24 Mechanical Ventilator 70 12/27/18 02:30 76 24 122/68 (86) 96 12/27/18 02:00 80 24 125/70 (88) 97 12/27/18 02:00 24 Mechanical Ventilator 70 12/27/18 01:30 80 24 133/77 (95) 97 12/27/18 01:00 80 24 142/74 (96) 98 12/27/18 01:00 24 Mechanical Ventilator 70 12/27/18 00:50 82 23 Mechanical Ventilator 70 12/27/18 00:30 82 24 162/81 (108) 95 12/27/18 00:00 98.7 78 24 144/79 (100) 93 12/27/18 00:00 80 12/27/18 00:00 Mechanical Ventilator 12/27/18 00:00 24 Mechanical Ventilator 70 12/27/18 00:00 70 12/26/18 23:54 76 12/26/18 23:30 77 24 125/70 (88) 93 12/26/18 23:13 80 24 99 Mechanical Ventilator 70 89 24 70 12/26/18 23:00 24 Mechanical Ventilator 70 12/26/18 23:00 76 24 130/71 (90) 96 12/26/18 22:30 79 24 145/82 (103) 97 12/26/18 22:00 79 24 133/79 (97) 95 12/26/18 22:00 24 Mechanical Ventilator 70 12/26/18 21:30 119 26 143/89 (107) 100 12/26/18 21:30 84 24 Mechanical Ventilator 70 12/26/18 21:00 24 Mechanical Ventilator 70 12/26/18 21:00 85 24 135/81 (99) 95 12/26/18 20:30 112 24 151/93 (112) 99 12/26/18 20:00 Mechanical Ventilator 12/26/18 20:00 23 Mechanical Ventilator 70 12/26/18 20:00 70 12/26/18 20:00 98.6 94 23 142/87 (105) 98 12/26/18 19:55 24 Mechanical Ventilator 70 12/26/18 19:50 26 Mechanical Ventilator 70 12/26/18 19:50 85 24 99 Mechanical Ventilator 70 89 24 70 12/26/18 19:45 24 Mechanical Ventilator 70 12/26/18 19:40 24 Mechanical Ventilator 70 12/26/18 19:30 84 24 135/87 (103) 98 12/26/18 19:13 116 12/26/18 19:00 91 24 154/70 (98) 100 12/26/18 19:00 20 Mechanical Ventilator 70 12/26/18 18:30 86 24 132/75 (94) 99 12/26/18 18:00 108 24 96/37 (56) 100 12/26/18 18:00 24 Mechanical Ventilator 70 12/26/18 17:30 98 24 138/81 (100) 99 12/26/18 17:00 24 Mechanical Ventilator 70 12/26/18 17:00 103 24 149/79 (102) 99 12/26/18 16:49 99 24 70 12/26/18 16:30 102 23 147/90 (109) 99 12/26/18 16:30 86 24 147/90 (109) 100 12/26/18 16:00 70 12/26/18 16:00 121 12/26/18 16:00 22 Mechanical Ventilator 70 12/26/18 16:00 100.0 121 22 140/98 (112) 100 12/26/18 16:00 Mechanical Ventilator 12/26/18 15:30 98 24 134/77 (96) 98 12/26/18 15:09 103 24 97 Mechanical Ventilator 70 98 24 70 12/26/18 15:00 130 21 151/82 (105) 99 12/26/18 15:00 22 Mechanical Ventilator 70 12/26/18 14:52 96 150/84 12/26/18 14:30 24 Mechanical Ventilator 70 12/26/18 14:30 106 21 140/74 (96) 97 12/26/18 14:00 24 Mechanical Ventilator 70 12/26/18 14:00 94 24 133/83 (100) 96 12/26/18 13:45 24 Mechanical Ventilator 70 12/26/18 13:30 80 24 140/78 (98) 96 12/26/18 13:30 24 Mechanical Ventilator 70 12/26/18 13:15 24 Mechanical Ventilator 70 12/26/18 13:00 91 24 135/72 (93) 96 12/26/18 13:00 23 Mechanical Ventilator 70 12/26/18 12:55 24 Mechanical Ventilator 70 12/26/18 12:50 90 24 70 12/26/18 12:45 119 25 155/87 (109) 98 12/26/18 12:45 24 Mechanical Ventilator 70 12/26/18 12:30 24 Mechanical Ventilator 70 12/26/18 12:30 98 24 139/75 (96) 96 12/26/18 12:15 115 22 128/74 (92) 96 12/26/18 12:15 24 70 Height (Feet): 5 Height (Inches): 9.00 Weight (Pounds): 314 HEENT: mucous membranes moist Respiratory/Chest: decreased breath sounds, other - on ventilator Cardiovascular: normal rate Abdomen: soft, non tender, other - orogastric tube Extremities: no edema Neurologic/Psychiatric: alert, responsive Microbiology Date/Time Source Procedure Growth Status 12/26/18 08:10 Sputum Induced Gram Stain Pending Resulted 12/26/18 08:10 Sputum Culture - Preliminary Staphylococcus Aureus Usual Respiratory Aniyah Resulted 12/24/18 12:46 Sputum Gram Stain - Final Resulted 12/24/18 12:46 Sputum Sputum Culture - Preliminary NORMAL UPPER RESPIRATORY ANIYAH PRESENT Resulted 12/26/18 09:14 Indwelling Cath Urine Culture - Preliminary NO GROWTH Resulted Laboratory Tests Test 12/27/18 03:00 12/27/18 08:57 White Blood Count 18.1 K/UL (4.8-10.8) H Red Blood Count 3.66 M/UL (4.20-5.40) L Hemoglobin 11.4 G/DL (12.0-16.0) L Hematocrit 35.4 % (37.0-47.0) L Mean Corpuscular Volume 97 FL (80-99) Mean Corpuscular Hemoglobin 31.3 PG (27.0-31.0) H Mean Corpuscular Hemoglobin Concent 32.3 G/DL (32.0-36.0) Red Cell Distribution Width 14.7 % (11.6-14.8) Platelet Count 267 K/UL (150-450) Mean Platelet Volume 5.1 FL (6.5-10.1) L Neutrophils (%) (Auto) % (45.0-75.0) Lymphocytes (%) (Auto) % (20.0-45.0) Monocytes (%) (Auto) % (1.0-10.0) Eosinophils (%) (Auto) % (0.0-3.0) Basophils (%) (Auto) % (0.0-2.0) Differential Total Cells Counted 100 Neutrophils % (Manual) 74 % (45-75) Lymphocytes % (Manual) 21 % (20-45) Monocytes % (Manual) 5 % (1-10) Eosinophils % (Manual) 0 % (0-3) Basophils % (Manual) 0 % (0-2) Band Neutrophils 0 % (0-8) Platelet Estimate Adequate Platelet Morphology Normal Polychromasia 1+ Anisocytosis 1+ Sodium Level 145 MMOL/L (136-145) Potassium Level 4.0 MMOL/L (3.5-5.1) Chloride Level 108 MMOL/L (98-107) H Carbon Dioxide Level 24 MMOL/L (21-32) Anion Gap 13 mmol/L (5-15) Blood Urea Nitrogen 20 mg/dL (7-18) H Creatinine 1.1 MG/DL (0.55-1.30) Estimat Glomerular Filtration Rate > 60 mL/min (>60) Glucose Level 151 MG/DL (74-106) H Uric Acid 3.2 MG/DL (2.6-7.2) Calcium Level 8.9 MG/DL (8.5-10.1) Phosphorus Level 3.4 MG/DL (2.5-4.9) Magnesium Level 2.6 MG/DL (1.8-2.4) H Total Bilirubin 0.4 MG/DL (0.2-1.0) Aspartate Amino Transf (AST/SGOT) 48 U/L (15-37) H Alanine Aminotransferase (ALT/SGPT) 86 U/L (12-78) H Alkaline Phosphatase 68 U/L (46-116) C-Reactive Protein, Quantitative 2.4 mg/dL (0.00-0.90) H Pro-B-Type Natriuretic Peptide 68 pg/mL (0-125) Total Protein 6.4 G/DL (6.4-8.2) Albumin 3.1 G/DL (3.4-5.0) L Globulin 3.3 g/dL Albumin/Globulin Ratio 0.9 (1.0-2.7) L Arterial Blood pH 7.471 (7.350-7.450) Arterial Blood Partial Pressure CO2 35.0 mmHg (35.0-45.0) Arterial Blood Partial Pressure O2 92.5 mmHg (75.0-100.0) Arterial Blood HCO3 25.0 mmol/L (22.0-26.0) Arterial Blood Oxygen Saturation 96.5 % (95-100) Arterial Blood Base Excess 1.6 (-2-2) Luis Test Positive Current Medications Medications (Trade) Dose Ordered Sig/Amaya Route PRN Reason Start Time Stop Time Status Last Admin Dose Admin Acetaminophen (Tylenol) 650 mg Q4HR PRN NG FOR TEMP >100.5 12/23/18 07:30 01/22/19 07:29 12/25/18 17:13 Acetylcysteine (Mucomyst) 200 mg Q4HRT HHN 12/24/18 23:00 01/23/19 12:59 12/27/18 11:40 Albuterol/ Ipratropium (Albuterol/ Ipratropium) 3 ml Q4HRT HHN 12/26/18 19:45 12/31/18 19:44 12/27/18 11:39 Amlodipine Besylate (Norvasc) 2.5 mg DAILY NG 12/26/18 14:15 01/25/19 14:14 12/27/18 09:58 Ceftriaxone Sodium 1 gm/ Dextrose 55 ml @ 110 mls/hr Q24H IVPB 12/21/18 18:00 12/28/18 17:59 12/26/18 17:52 Clonidine HCl (Catapres Tab) 0.1 mg Q6H PRN NG For High Blood Pressure 12/26/18 15:00 01/25/19 14:59 Dextrose (Dextrose 50%) 25 ml Q30M PRN IV Hypoglycemia 12/21/18 17:00 01/20/19 16:59 Dextrose (Dextrose 50%) 50 ml Q30M PRN IV Hypoglycemia 12/21/18 17:00 01/20/19 16:59 Fentanyl Citrate 2500 mcg/Sodium Chloride 250 ml @ 0 mls/hr Q24H IV 12/24/18 23:31 12/31/18 23:30 12/27/18 03:18 Haloperidol Lactate (Haldol) 5 mg Q6H PRN IM Agitation 12/24/18 00:30 01/23/19 00:29 12/24/18 16:22 Insulin Aspart (NovoLOG) EVERY 6 HOURS SUBQ 12/21/18 18:00 01/20/19 17:59 12/27/18 05:49 Lorazepam (Ativan 2mg/ml 1ml) 1 mg Q2H PRN IV agitation / restlessness 12/22/18 12:15 12/28/18 16:14 12/26/18 21:47 Methylprednisolone Sodium Succinate (Solu-MEDROL) 40 mg EVERY 6 HOURS IVP 12/26/18 12:00 01/25/19 11:59 12/27/18 05:48 Pantoprazole (Protonix) 40 mg EVERY 12 HOURS IVP 12/22/18 11:00 01/21/19 10:59 12/27/18 09:59 Potassium Chloride (K-Dur) 20 meq TWICE A DAY NG 12/26/18 12:45 01/25/19 12:44 12/27/18 09:59 Quetiapine Fumarate (SEROquel) 25 mg Q6H PRN ORAL Agitation 12/22/18 12:30 01/20/19 12:29 12/26/18 20:34 Nikos Martinez MD Dec 27, 2018 12:07
--- NOTE | 2018-12-27 12:45 | NUR ---
NURSE NOTES: Dr. Martinez updated no patient wbc count increase, will place orders to give doxycycline by NG-tube, patient has thick yellow secretions while suctioning,
--- NOTE | 2018-12-27 13:34 | Nephrology Progress Note ---
Assessment/Plan Problem List: (1) Salicylate overdose (2) Psychosis (3) Anemia (4) Obesity (5) Hypokalemia (6) Rhabdomyolysis Assessment: high CPK Assessment HypoKalemia Mild Anemia s/p Acidosis resolved Respiratory failure Salicylate overdose Psychosis Asthma Obesity Plan Plan: trial of Lasix 40 IV once Fails weaning K , Mag , Phos supplement as needed no IV fluids weaning as possible taper steroids as possible IV Protonix Resp management per Dr hurt monitor renal parameters Urine studies Subjective ROS Limited/Unobtainable: Yes Objective Objective Last 24 Hour Vital Signs Date Time Temp Pulse Resp B/P (MAP) Pulse Ox O2 Delivery O2 Flow Rate FiO2 12/27/18 13:07 105 24 40 12/27/18 13:00 93 24 154/79 (104) 99 12/27/18 12:30 95 24 129/72 (91) 98 12/27/18 12:00 60 12/27/18 12:00 Mechanical Ventilator 12/27/18 12:00 24 Mechanical Ventilator 40 12/27/18 12:00 99.2 102 24 109/67 (81) 97 12/27/18 11:57 86 12/27/18 11:40 94 24 96 Mechanical Ventilator 12/27/18 11:30 99 24 111/84 (93) 95 12/27/18 11:15 98 24 40 12/27/18 11:00 24 Mechanical Ventilator 50 12/27/18 11:00 98 24 137/91 (106) 96 12/27/18 10:30 90 24 142/83 (102) 95 12/27/18 10:00 24 Mechanical Ventilator 50 12/27/18 10:00 91 24 145/85 (105) 95 12/27/18 09:58 106 143/80 12/27/18 09:30 92 24 134/85 (101) 96 12/27/18 09:19 50 12/27/18 09:06 106 24 70 12/27/18 09:00 24 Mechanical Ventilator 70 12/27/18 09:00 89 24 135/94 (108) 99 12/27/18 08:30 86 24 145/89 (107) 97 12/27/18 08:00 83 12/27/18 08:00 99.3 85 24 139/89 (106) 97 12/27/18 08:00 24 Mechanical Ventilator 70 12/27/18 08:00 Mechanical Ventilator 12/27/18 08:00 70 12/27/18 07:30 24 Mechanical Ventilator 70 12/27/18 07:30 90 24 145/98 (114) 97 12/27/18 07:25 24 Mechanical Ventilator 70 12/27/18 07:20 24 Mechanical Ventilator 70 12/27/18 07:15 24 Mechanical Ventilator 70 12/27/18 07:10 98 24 100 Mechanical Ventilator 12/27/18 07:10 24 Mechanical Ventilator 70 12/27/18 07:00 24 Mechanical Ventilator 70 12/27/18 07:00 102 24 138/70 (92) 96 12/27/18 07:00 104 25 Mechanical Ventilator 70 12/27/18 06:50 24 Mechanical Ventilator 70 12/27/18 06:45 24 Mechanical Ventilator 70 12/27/18 06:30 87 24 138/79 (98) 99 12/27/18 06:00 93 24 133/70 (91) 98 12/27/18 06:00 24 Mechanical Ventilator 70 12/27/18 05:41 123 24 Mechanical Ventilator 70 12/27/18 05:30 100 24 137/74 (95) 97 12/27/18 05:00 108 24 138/91 (107) 96 12/27/18 05:00 24 70 12/27/18 04:30 91 24 160/74 (102) 95 12/27/18 04:00 70 12/27/18 04:00 98.9 84 24 138/77 (97) 93 12/27/18 04:00 Mechanical Ventilator 12/27/18 04:00 24 Mechanical Ventilator 70 12/27/18 04:00 84 12/27/18 03:30 72 24 134/76 (95) 97 12/27/18 03:22 71 24 99 Mechanical Ventilator 70 74 23 70 12/27/18 03:18 24 Mechanical Ventilator 70 12/27/18 03:00 74 24 135/81 (99) 97 12/27/18 03:00 24 Mechanical Ventilator 70 12/27/18 02:30 76 24 122/68 (86) 96 12/27/18 02:00 80 24 125/70 (88) 97 12/27/18 02:00 24 Mechanical Ventilator 70 12/27/18 01:30 80 24 133/77 (95) 97 12/27/18 01:00 80 24 142/74 (96) 98 12/27/18 01:00 24 Mechanical Ventilator 70 12/27/18 00:50 82 23 Mechanical Ventilator 70 12/27/18 00:30 82 24 162/81 (108) 95 12/27/18 00:00 98.7 78 24 144/79 (100) 93 12/27/18 00:00 80 12/27/18 00:00 Mechanical Ventilator 12/27/18 00:00 24 Mechanical Ventilator 70 12/27/18 00:00 70 12/26/18 23:54 76 12/26/18 23:30 77 24 125/70 (88) 93 12/26/18 23:13 80 24 99 Mechanical Ventilator 70 89 24 70 12/26/18 23:00 24 Mechanical Ventilator 70 12/26/18 23:00 76 24 130/71 (90) 96 12/26/18 22:30 79 24 145/82 (103) 97 12/26/18 22:00 79 24 133/79 (97) 95 12/26/18 22:00 24 Mechanical Ventilator 70 12/26/18 21:30 119 26 143/89 (107) 100 12/26/18 21:30 84 24 Mechanical Ventilator 70 12/26/18 21:00 24 Mechanical Ventilator 70 12/26/18 21:00 85 24 135/81 (99) 95 12/26/18 20:30 112 24 151/93 (112) 99 12/26/18 20:00 Mechanical Ventilator 12/26/18 20:00 23 Mechanical Ventilator 70 12/26/18 20:00 70 12/26/18 20:00 98.6 94 23 142/87 (105) 98 12/26/18 19:55 24 Mechanical Ventilator 70 12/26/18 19:50 26 Mechanical Ventilator 70 12/26/18 19:50 85 24 99 Mechanical Ventilator 70 89 24 70 12/26/18 19:45 24 Mechanical Ventilator 70 12/26/18 19:40 24 Mechanical Ventilator 70 12/26/18 19:30 84 24 135/87 (103) 98 12/26/18 19:13 116 12/26/18 19:00 91 24 154/70 (98) 100 12/26/18 19:00 20 Mechanical Ventilator 70 12/26/18 18:30 86 24 132/75 (94) 99 12/26/18 18:00 108 24 96/37 (56) 100 12/26/18 18:00 24 Mechanical Ventilator 70 12/26/18 17:30 98 24 138/81 (100) 99 12/26/18 17:00 24 Mechanical Ventilator 70 12/26/18 17:00 103 24 149/79 (102) 99 12/26/18 16:49 99 24 70 12/26/18 16:30 102 23 147/90 (109) 99 12/26/18 16:30 86 24 147/90 (109) 100 12/26/18 16:00 70 12/26/18 16:00 121 12/26/18 16:00 22 Mechanical Ventilator 70 12/26/18 16:00 100.0 121 22 140/98 (112) 100 12/26/18 16:00 Mechanical Ventilator 12/26/18 15:30 98 24 134/77 (96) 98 12/26/18 15:09 103 24 97 Mechanical Ventilator 70 98 24 70 12/26/18 15:00 130 21 151/82 (105) 99 12/26/18 15:00 22 Mechanical Ventilator 70 12/26/18 14:52 96 150/84 12/26/18 14:30 24 Mechanical Ventilator 70 12/26/18 14:30 106 21 140/74 (96) 97 12/26/18 14:00 24 Mechanical Ventilator 70 12/26/18 14:00 94 24 133/83 (100) 96 12/26/18 13:45 24 Mechanical Ventilator 70 Intake and Output 12/26/18 12/27/18 19:00 07:00 Intake Total 685.75 ml 686 ml Output Total 1100 ml 615 ml Balance -414.25 ml 71 ml Free Water 30 ml IV Total 215.75 ml 236 ml Tube Feeding 440 ml 400 ml Other 50 ml Output Urine Total 1100 ml 615 ml Laboratory Tests 12/27/18 03:00: White Blood Count 18.1H, Red Blood Count 3.66L, Hemoglobin 11.4L, Hematocrit 35.4L, Mean Corpuscular Volume 97, Mean Corpuscular Hemoglobin 31.3H, Mean Corpuscular Hemoglobin Concent 32.3, Red Cell Distribution Width 14.7, Platelet Count 267, Mean Platelet Volume 5.1L, Neutrophils (%) (Auto) , Lymphocytes (%) ( Auto) , Monocytes (%) (Auto) , Eosinophils (%) (Auto) , Basophils (%) (Auto) , Differential Total Cells Counted 100, Neutrophils % (Manual) 74, Lymphocytes % ( Manual) 21, Monocytes % (Manual) 5, Eosinophils % (Manual) 0, Basophils % ( Manual) 0, Band Neutrophils 0, Platelet Estimate Adequate, Platelet Morphology Normal, Polychromasia 1+, Anisocytosis 1+, Sodium Level 145, Potassium Level 4.0 , Chloride Level 108H, Carbon Dioxide Level 24, Anion Gap 13, Blood Urea Nitrogen 20H, Creatinine 1.1, Estimat Glomerular Filtration Rate > 60, Glucose Level 151H, Uric Acid 3.2, Calcium Level 8.9, Phosphorus Level 3.4, Magnesium Level 2.6H, Total Bilirubin 0.4, Aspartate Amino Transf (AST/SGOT) 48H, Alanine Aminotransferase (ALT/SGPT) 86H, Alkaline Phosphatase 68, C-Reactive Protein, Quantitative 2.4H, Pro-B-Type Natriuretic Peptide 68, Total Protein 6.4, Albumin 3.1L, Globulin 3.3, Albumin/Globulin Ratio 0.9L 12/27/18 08:57: Arterial Blood pH 7.471H, Arterial Blood Partial Pressure CO2 35.0, Arterial Blood Partial Pressure O2 92.5, Arterial Blood HCO3 25.0, Arterial Blood Oxygen Saturation 96.5, Arterial Blood Base Excess 1.6, Luis Test Positive Height (Feet): 5 Height (Inches): 9.00 Weight (Pounds): 314 General Appearance: no apparent distress EENT: other - vented Respiratory/Chest: decreased breath sounds Abdomen: distended Jerzy Boudreaux MD Dec 27, 2018 13:34
[2018-12-27] MEDS: Doxycycline Monohydrate 100mg NG SCH ×2 (15:33→20:38)
[2018-12-27] MEDS: LORazepam Inj 2mg/ml 1ml IV PRN ×2 (16:03→23:40)
--- NOTE | 2018-12-27 16:21 | Hematology/Onc Progress Note ---
Assessment/Plan Assessment/Plan Assessment and Recs: # Anemia of chronic disease due to underlying chronic medical issues, multifactorial --> Anemia workup has been ordered, rule out gi bleed --> No evidence of hemolysis is noted, peripheral smear has been reviewed. --> Hgb goal >7. Transfuse prn. --> Epogen or iron at this time is not particularly indicated --> Medications have been reviewed --> low threshold for gi evaluation in case has occult + # Leukocytosis is likely due to steriods --> monitor steriod use --> accuchecks qac and qhs --> insulin as needed prn --> on ctx/doxy per id prn --> wbc 12-->15->17-->18 # Salicylate overdose now improved --> Medical management for salicylate overdose --> Sodium bicarbonate --> IVF started, as per renal --> now improved # Electrolyte correction --> replace k prn basis # Resp failure --> higher peep, sbt per pulm The timing of this note does not necessarily reflect the time of the patient was seen. GREATLY APPRECIATE CONSULTATION. Subjective HEENT: Denies: no symptoms, eye pain, blurred vision, tearing, double vision, ear pain, ear discharge, nose pain, nose congestion, throat pain, throat swelling, mouth pain, mouth swelling, other Cardiovascular: Denies: no symptoms, chest pain, edema, irregular heart rate, lightheadedness, palpitations, syncope, other Respiratory: Denies: no symptoms, cough, shortness of breath, SOB with excertion, SOB at rest, sputum, wheezing, other Gastrointestinal/Abdominal: Denies: no symptoms, abdomen distended, abdominal pain, black stools, tarry stools, blood in stool, constipated, diarrhea, difficulty swallowing, nausea, poor appetite, poor fluid intake, rectal bleeding , vomiting, other Genitourinary: Denies: no symptoms, burning, discharge, frequency, flank pain, hematuria, incontinence, pain, urgency, other Endocrine: Denies: no symptoms, excessive sweating, flushing, intolerance to cold, intolerance to heat, increased hunger, increased thirst, increased urine, unexplained weight gain, unexplained weight loss, other Hematologic/Lymphatic: Denies: no symptoms, anemia, easy bleeding, easy bruising, adenopathy, other Allergies: Coded Allergies: No Known Allergies (Unverified , 11/07/13) Subjective 12/23: no events, no bleeding reported, tf held for potential extubation 12/24: icu, trach, agitated and confused, labs reviewed, abx, fentanyl 12/26: no bleeding, no chills, still on abx, fentayl, labs reviewed 12/27: dox and ctx, no bleeding sputum cultures reviewed Objective Objective Current Medications Medications (Trade) Dose Ordered Sig/Amaya Route PRN Reason Start Time Stop Time Status Last Admin Dose Admin Acetaminophen (Tylenol) 650 mg Q4HR PRN NG FOR TEMP >100.5 12/23/18 07:30 01/22/19 07:29 12/25/18 17:13 Acetylcysteine (Mucomyst) 200 mg Q4HRT HHN 12/24/18 23:00 01/23/19 12:59 12/27/18 11:40 Albuterol/ Ipratropium (Albuterol/ Ipratropium) 3 ml Q4HRT HHN 12/26/18 19:45 12/31/18 19:44 12/27/18 11:39 Amlodipine Besylate (Norvasc) 2.5 mg DAILY NG 12/26/18 14:15 01/25/19 14:14 12/27/18 09:58 Ceftriaxone Sodium 1 gm/ Dextrose 55 ml @ 110 mls/hr Q24H IVPB 12/21/18 18:00 12/28/18 17:59 12/26/18 17:52 Clonidine HCl (Catapres Tab) 0.1 mg Q6H PRN NG For High Blood Pressure 12/26/18 15:00 01/25/19 14:59 Dextrose (Dextrose 50%) 25 ml Q30M PRN IV Hypoglycemia 12/21/18 17:00 01/20/19 16:59 Dextrose (Dextrose 50%) 50 ml Q30M PRN IV Hypoglycemia 12/21/18 17:00 01/20/19 16:59 Doxycycline Monohydrate (Doxycycline Monohydrate) 100 mg EVERY 12 HOURS NG 12/27/18 13:30 01/03/19 13:29 12/27/18 15:33 Fentanyl Citrate 2500 mcg/Sodium Chloride 250 ml @ 0 mls/hr Q24H IV 12/24/18 23:31 12/31/18 23:30 12/27/18 03:18 Haloperidol Lactate (Haldol) 5 mg Q6H PRN IM Agitation 12/24/18 00:30 01/23/19 00:29 12/24/18 16:22 Insulin Aspart (NovoLOG) EVERY 6 HOURS SUBQ 12/21/18 18:00 01/20/19 17:59 12/27/18 12:28 Lorazepam (Ativan 2mg/ml 1ml) 1 mg Q2H PRN IV agitation / restlessness 12/22/18 12:15 12/28/18 16:14 12/27/18 16:03 Methylprednisolone Sodium Succinate (Solu-MEDROL) 40 mg EVERY 6 HOURS IVP 12/26/18 12:00 01/25/19 11:59 12/27/18 12:20 Pantoprazole (Protonix) 40 mg EVERY 12 HOURS IVP 12/22/18 11:00 01/21/19 10:59 12/27/18 09:59 Potassium Chloride (K-Dur) 20 meq TWICE A DAY NG 12/26/18 12:45 01/25/19 12:44 12/27/18 09:59 Quetiapine Fumarate (SEROquel) 25 mg Q6H PRN ORAL Agitation 12/22/18 12:30 01/20/19 12:29 12/26/18 20:34 Last 24 Hour Vital Signs Date Time Temp Pulse Resp B/P (MAP) Pulse Ox O2 Delivery O2 Flow Rate FiO2 12/27/18 16:00 98.6 85 24 154/89 (110) 100 12/27/18 16:00 60 12/27/18 15:30 91 24 157/89 (111) 100 12/27/18 15:00 77 24 140/78 (98) 98 12/27/18 14:30 80 24 133/77 (95) 96 12/27/18 14:00 125 24 148/92 (110) 98 12/27/18 13:30 81 24 134/78 (96) 99 12/27/18 13:07 105 24 40 12/27/18 13:00 93 24 154/79 (104) 99 12/27/18 12:30 95 24 129/72 (91) 98 12/27/18 12:00 60 12/27/18 12:00 Mechanical Ventilator 12/27/18 12:00 24 Mechanical Ventilator 40 12/27/18 12:00 99.2 102 24 109/67 (81) 97 12/27/18 11:57 86 12/27/18 11:40 94 24 96 Mechanical Ventilator 12/27/18 11:30 99 24 111/84 (93) 95 12/27/18 11:15 98 24 40 12/27/18 11:00 24 Mechanical Ventilator 50 12/27/18 11:00 98 24 137/91 (106) 96 12/27/18 10:30 90 24 142/83 (102) 95 12/27/18 10:00 24 Mechanical Ventilator 50 12/27/18 10:00 91 24 145/85 (105) 95 12/27/18 09:58 106 143/80 12/27/18 09:30 92 24 134/85 (101) 96 12/27/18 09:19 50 12/27/18 09:06 106 24 70 12/27/18 09:00 24 Mechanical Ventilator 70 12/27/18 09:00 89 24 135/94 (108) 99 12/27/18 08:30 86 24 145/89 (107) 97 12/27/18 08:00 83 12/27/18 08:00 99.3 85 24 139/89 (106) 97 12/27/18 08:00 24 Mechanical Ventilator 70 12/27/18 08:00 Mechanical Ventilator 12/27/18 08:00 70 12/27/18 07:30 24 Mechanical Ventilator 70 12/27/18 07:30 90 24 145/98 (114) 97 12/27/18 07:25 24 Mechanical Ventilator 70 12/27/18 07:20 24 Mechanical Ventilator 70 12/27/18 07:15 24 Mechanical Ventilator 70 12/27/18 07:10 98 24 100 Mechanical Ventilator 12/27/18 07:10 24 Mechanical Ventilator 70 12/27/18 07:00 24 Mechanical Ventilator 70 12/27/18 07:00 102 24 138/70 (92) 96 12/27/18 07:00 104 25 Mechanical Ventilator 70 12/27/18 06:50 24 Mechanical Ventilator 70 12/27/18 06:45 24 Mechanical Ventilator 70 12/27/18 06:30 87 24 138/79 (98) 99 12/27/18 06:00 93 24 133/70 (91) 98 12/27/18 06:00 24 Mechanical Ventilator 70 12/27/18 05:41 123 24 Mechanical Ventilator 70 12/27/18 05:30 100 24 137/74 (95) 97 12/27/18 05:00 108 24 138/91 (107) 96 12/27/18 05:00 24 70 12/27/18 04:30 91 24 160/74 (102) 95 12/27/18 04:00 70 12/27/18 04:00 98.9 84 24 138/77 (97) 93 12/27/18 04:00 Mechanical Ventilator 12/27/18 04:00 24 Mechanical Ventilator 70 12/27/18 04:00 84 12/27/18 03:30 72 24 134/76 (95) 97 12/27/18 03:22 71 24 99 Mechanical Ventilator 70 74 23 70 12/27/18 03:18 24 Mechanical Ventilator 70 12/27/18 03:00 74 24 135/81 (99) 97 12/27/18 03:00 24 Mechanical Ventilator 70 12/27/18 02:30 76 24 122/68 (86) 96 12/27/18 02:00 80 24 125/70 (88) 97 12/27/18 02:00 24 Mechanical Ventilator 70 12/27/18 01:30 80 24 133/77 (95) 97 12/27/18 01:00 80 24 142/74 (96) 98 12/27/18 01:00 24 Mechanical Ventilator 70 12/27/18 00:50 82 23 Mechanical Ventilator 70 12/27/18 00:30 82 24 162/81 (108) 95 12/27/18 00:00 98.7 78 24 144/79 (100) 93 12/27/18 00:00 80 12/27/18 00:00 Mechanical Ventilator 12/27/18 00:00 24 Mechanical Ventilator 70 12/27/18 00:00 70 12/26/18 23:54 76 12/26/18 23:30 77 24 125/70 (88) 93 12/26/18 23:13 80 24 99 Mechanical Ventilator 70 89 24 70 12/26/18 23:00 24 Mechanical Ventilator 70 12/26/18 23:00 76 24 130/71 (90) 96 12/26/18 22:30 79 24 145/82 (103) 97 12/26/18 22:00 79 24 133/79 (97) 95 12/26/18 22:00 24 Mechanical Ventilator 70 12/26/18 21:30 119 26 143/89 (107) 100 12/26/18 21:30 84 24 Mechanical Ventilator 70 12/26/18 21:00 24 Mechanical Ventilator 70 12/26/18 21:00 85 24 135/81 (99) 95 12/26/18 20:30 112 24 151/93 (112) 99 12/26/18 20:00 Mechanical Ventilator 12/26/18 20:00 23 Mechanical Ventilator 70 12/26/18 20:00 70 12/26/18 20:00 98.6 94 23 142/87 (105) 98 12/26/18 19:55 24 Mechanical Ventilator 70 12/26/18 19:50 26 Mechanical Ventilator 70 12/26/18 19:50 85 24 99 Mechanical Ventilator 70 89 24 70 12/26/18 19:45 24 Mechanical Ventilator 70 12/26/18 19:40 24 Mechanical Ventilator 70 12/26/18 19:30 84 24 135/87 (103) 98 12/26/18 19:13 116 12/26/18 19:00 91 24 154/70 (98) 100 12/26/18 19:00 20 Mechanical Ventilator 70 12/26/18 18:30 86 24 132/75 (94) 99 12/26/18 18:00 108 24 96/37 (56) 100 12/26/18 18:00 24 Mechanical Ventilator 70 12/26/18 17:30 98 24 138/81 (100) 99 12/26/18 17:00 24 Mechanical Ventilator 70 12/26/18 17:00 103 24 149/79 (102) 99 12/26/18 16:49 99 24 70 12/26/18 16:30 102 23 147/90 (109) 99 12/26/18 16:30 86 24 147/90 (109) 100 12/26/18 16:00 70 12/26/18 16:00 121 12/26/18 16:00 22 Mechanical Ventilator 70 12/26/18 16:00 100.0 121 22 140/98 (112) 100 12/26/18 16:00 Mechanical Ventilator 12/26/18 15:30 98 24 134/77 (96) 98 12/26/18 15:09 103 24 97 Mechanical Ventilator 70 98 24 70 12/26/18 15:00 130 21 151/82 (105) 99 12/26/18 15:00 22 Mechanical Ventilator 70 12/26/18 14:52 96 150/84 12/26/18 14:30 24 Mechanical Ventilator 70 12/26/18 14:30 106 21 140/74 (96) 97 12/26/18 14:00 24 Mechanical Ventilator 70 12/26/18 14:00 94 24 133/83 (100) 96 12/26/18 13:45 24 Mechanical Ventilator 70 12/26/18 13:30 80 24 140/78 (98) 96 12/26/18 13:30 24 Mechanical Ventilator 70 12/26/18 13:15 24 Mechanical Ventilator 70 12/26/18 13:00 91 24 135/72 (93) 96 12/26/18 13:00 23 Mechanical Ventilator 70 12/26/18 12:55 24 Mechanical Ventilator 70 12/26/18 12:50 90 24 70 12/26/18 12:45 119 25 155/87 (109) 98 12/26/18 12:45 24 Mechanical Ventilator 70 12/26/18 12:30 24 Mechanical Ventilator 70 12/26/18 12:30 98 24 139/75 (96) 96 12/26/18 12:15 115 22 128/74 (92) 96 12/26/18 12:15 24 70 12/26/18 12:00 Mechanical Ventilator 12/26/18 12:00 70 12/26/18 12:00 99.8 101 24 132/72 (92) 70 12/26/18 12:00 24 Mechanical Ventilator 12/26/18 12:00 89 12/26/18 11:30 95 24 136/68 (90) 12/26/18 11:00 23 Mechanical Ventilator 70 12/26/18 11:00 90 24 159/92 (114) 96 12/26/18 11:00 98 24 98 Mechanical Ventilator 70 102 24 70 12/26/18 10:45 105 23 144/91 (108) 98 12/26/18 10:30 24 Mechanical Ventilator 70 12/26/18 10:30 80 24 147/113 (124) 97 12/26/18 10:15 80 24 147/113 (124) 97 12/26/18 10:00 78 24 143/74 (97) 97 12/26/18 10:00 20 Mechanical Ventilator 70 12/26/18 09:45 24 Mechanical Ventilator 70 12/26/18 09:30 24 Mechanical Ventilator 70 12/26/18 09:30 119 20 143/71 (95) 93 12/26/18 09:15 20 Mechanical Ventilator 70 12/26/18 09:00 25 Mechanical Ventilator 70 12/26/18 09:00 94 24 143/73 (96) 97 12/26/18 08:56 97 12/26/18 08:56 90 24 70 12/26/18 08:45 24 Mechanical Ventilator 70 12/26/18 08:30 20 Mechanical Ventilator 70 12/26/18 08:30 101 24 136/82 (100) 97 12/26/18 08:15 22 Mechanical Ventilator 70 12/26/18 08:00 85 12/26/18 08:00 Mechanical Ventilator 12/26/18 08:00 25 Mechanical Ventilator 70 12/26/18 08:00 70 12/26/18 08:00 99.0 86 24 122/67 (85) 99 12/26/18 07:30 106 23 130/69 (89) 96 12/26/18 07:15 90 24 98 Mechanical Ventilator 70 109 24 70 12/26/18 07:15 98 24 12/26/18 07:00 20 Endotracheal Tube 70 12/26/18 07:00 102 24 155/81 (105) 98 12/26/18 06:30 99.2 96 24 154/97 (116) 96 12/26/18 06:15 80 24 97 12/26/18 06:00 20 Endotracheal Tube 70 12/26/18 06:00 86 24 139/83 (101) 98 12/26/18 05:30 78 24 118/82 (94) 97 12/26/18 05:02 83 24 152/85 (107) 98 12/26/18 05:00 24 Endotracheal Tube 70 12/26/18 04:59 92 24 70 12/26/18 04:30 87 24 149/85 (106) 98 12/26/18 04:22 89 24 158/75 (102) 99 12/26/18 04:00 98.0 65 24 154/81 (105) 96 12/26/18 04:00 81 12/26/18 04:00 70 12/26/18 04:00 24 Endotracheal Tube 70 12/26/18 04:00 Mechanical Ventilator 12/26/18 03:45 68 23 142/79 (100) 95 12/26/18 03:30 71 24 149/82 (104) 95 12/26/18 03:15 74 24 141/85 (103) 96 12/26/18 03:03 79 24 96 Mechanical Ventilator 70 83 24 70 12/26/18 03:00 69 24 165/103 (123) 98 12/26/18 03:00 24 Endotracheal Tube 70 12/26/18 02:45 70 24 149/84 (105) 98 12/26/18 02:30 72 24 142/91 (108) 99 12/26/18 02:00 99.1 73 24 160/95 (116) 97 12/26/18 02:00 24 Endotracheal Tube 70 12/26/18 01:30 73 24 159/90 (113) 97 12/26/18 01:00 74 24 97 12/26/18 01:00 24 Endotracheal Tube 70 12/26/18 00:55 77 24 70 12/26/18 00:45 71 24 157/87 (110) 97 12/26/18 00:30 85 23 166/92 (116) 95 12/26/18 00:15 73 24 155/87 (109) 97 12/26/18 00:00 72 12/26/18 00:00 Mechanical Ventilator 12/26/18 00:00 24 Endotracheal Tube 70 12/26/18 00:00 98.8 74 24 155/84 (107) 96 12/26/18 00:00 70 12/25/18 23:52 98.9 12/25/18 23:45 78 24 151/87 (108) 96 12/25/18 23:30 74 24 171/86 (114) 97 12/25/18 23:22 24 Endotracheal Tube 70 12/25/18 23:21 24 Endotracheal Tube 70 12/25/18 23:15 84 23 158/90 (112) 97 12/25/18 23:15 89 24 97 Mechanical Ventilator 70 89 24 70 12/25/18 23:00 62 24 133/77 (95) 96 12/25/18 23:00 20 Endotracheal Tube 70 12/25/18 22:45 64 24 133/76 (95) 97 12/25/18 22:30 66 24 135/74 (94) 97 12/25/18 22:15 67 24 141/75 (97) 97 12/25/18 22:00 90 24 153/86 (108) 95 12/25/18 22:00 20 Endotracheal Tube 70 12/25/18 21:45 71 24 141/77 (98) 98 12/25/18 21:30 72 24 145/84 (104) 98 12/25/18 21:00 24 Endotracheal Tube 70 12/25/18 21:00 77 24 146/77 (100) 100 12/25/18 20:50 122 24 70 12/25/18 20:45 87 24 148/117 (127) 100 12/25/18 20:30 124 22 171/96 (121) 100 12/25/18 20:15 76 24 128/74 (92) 99 12/25/18 20:00 98.9 80 24 127/71 (89) 99 12/25/18 20:00 19 Endotracheal Tube 70 12/25/18 20:00 80 24 127/71 (89) 99 12/25/18 20:00 70 12/25/18 20:00 Mechanical Ventilator 12/25/18 20:00 81 12/25/18 19:30 80 24 151/82 (105) 89 12/25/18 19:03 77 24 96 Mechanical Ventilator 70 77 24 70 12/25/18 19:00 24 Mechanical Ventilator 70 12/25/18 19:00 80 24 144/76 (98) 96 12/25/18 18:30 81 24 142/84 (103) 99 12/25/18 18:00 24 Mechanical Ventilator 70 12/25/18 18:00 83 24 127/65 (85) 97 12/25/18 17:43 99.8 12/25/18 17:30 116 24 132/81 (98) 92 12/25/18 17:00 85 24 132/81 (98) 94 12/25/18 17:00 24 Mechanical Ventilator 70 12/25/18 16:53 89 24 Mechanical Ventilator 70 12/25/18 16:30 83 24 129/73 (91) 95 Intake and Output 12/26/18 12/27/18 19:00 07:00 Intake Total 685.75 ml 686 ml Output Total 1100 ml 615 ml Balance -414.25 ml 71 ml Free Water 30 ml IV Total 215.75 ml 236 ml Tube Feeding 440 ml 400 ml Other 50 ml Output Urine Total 1100 ml 615 ml Labs Test 12/25/18 06:30 12/26/18 06:45 12/27/18 03:00 12/27/18 08:57 White Blood Count 16.7 K/UL (4.8-10.8) 17.7 K/UL (4.8-10.8) 18.1 K/UL (4.8-10.8) Red Blood Count 3.67 M/UL (4.20-5.40) 3.89 M/UL (4.20-5.40) 3.66 M/UL (4.20-5.40) Hemoglobin 11.4 G/DL (12.0-16.0) 12.1 G/DL (12.0-16.0) 11.4 G/DL (12.0-16.0) Hematocrit 35.3 % (37.0-47.0) 37.3 % (37.0-47.0) 35.4 % (37.0-47.0) Mean Corpuscular Volume 96 FL (80-99) 96 FL (80-99) 97 FL (80-99) Mean Corpuscular Hemoglobin 31.2 PG (27.0-31.0) 31.0 PG (27.0-31.0) 31.3 PG (27.0-31.0) Mean Corpuscular Hemoglobin Concent 32.4 G/DL (32.0-36.0) 32.3 G/DL (32.0-36.0) 32.3 G/DL (32.0-36.0) Red Cell Distribution Width 14.8 % (11.6-14.8) 15.2 % (11.6-14.8) 14.7 % (11.6-14.8) Platelet Count 273 K/UL (150-450) 284 K/UL (150-450) 267 K/UL (150-450) Mean Platelet Volume 5.5 FL (6.5-10.1) 5.3 FL (6.5-10.1) 5.1 FL (6.5-10.1) Neutrophils (%) (Auto) 80.7 % (45.0-75.0) 80.8 % (45.0-75.0) % (45.0-75.0) Lymphocytes (%) (Auto) 11.3 % (20.0-45.0) 10.4 % (20.0-45.0) % (20.0-45.0) Monocytes (%) (Auto) 7.4 % (1.0-10.0) 8.1 % (1.0-10.0) % (1.0-10.0) Eosinophils (%) (Auto) 0.0 % (0.0-3.0) 0.0 % (0.0-3.0) % (0.0-3.0) Basophils (%) (Auto) 0.6 % (0.0-2.0) 0.7 % (0.0-2.0) % (0.0-2.0) Sodium Level 144 MMOL/L (136-145) 144 MMOL/L (136-145) 145 MMOL/L (136-145) Potassium Level 3.5 MMOL/L (3.5-5.1) 3.6 MMOL/L (3.5-5.1) 4.0 MMOL/L (3.5-5.1) Chloride Level 108 MMOL/L (98-107) 107 MMOL/L (98-107) 108 MMOL/L (98-107) Carbon Dioxide Level 27 MMOL/L (21-32) 26 MMOL/L (21-32) 24 MMOL/L (21-32) Anion Gap 9 mmol/L (5-15) 11 mmol/L (5-15) 13 mmol/L (5-15) Blood Urea Nitrogen 16 mg/dL (7-18) 17 mg/dL (7-18) 20 mg/dL (7-18) Creatinine 1.0 MG/DL (0.55-1.30) 1.1 MG/DL (0.55-1.30) 1.1 MG/DL (0.55-1.30) Estimat Glomerular Filtration Rate > 60 mL/min (>60) > 60 mL/min (>60) > 60 mL/min (>60) Glucose Level 157 MG/DL (74-106) 156 MG/DL (74-106) 151 MG/DL (74-106) Uric Acid 2.2 MG/DL (2.6-7.2) 3.2 MG/DL (2.6-7.2) Calcium Level 8.4 MG/DL (8.5-10.1) 8.7 MG/DL (8.5-10.1) 8.9 MG/DL (8.5-10.1) Phosphorus Level 3.1 MG/DL (2.5-4.9) 3.4 MG/DL (2.5-4.9) 3.4 MG/DL (2.5-4.9) Magnesium Level 2.6 MG/DL (1.8-2.4) 2.7 MG/DL (1.8-2.4) 2.6 MG/DL (1.8-2.4) Total Bilirubin 0.3 MG/DL (0.2-1.0) 0.4 MG/DL (0.2-1.0) 0.4 MG/DL (0.2-1.0) Aspartate Amino Transf (AST/SGOT) 99 U/L (15-37) 66 U/L (15-37) 48 U/L (15-37) Alanine Aminotransferase (ALT/SGPT) 77 U/L (12-78) 84 U/L (12-78) 86 U/L (12-78) Alkaline Phosphatase 63 U/L (46-116) 73 U/L (46-116) 68 U/L (46-116) C-Reactive Protein, Quantitative 1.7 mg/dL (0.00-0.90) 1.7 mg/dL (0.00-0.90) 2.4 mg/dL (0.00-0.90) Pro-B-Type Natriuretic Peptide 65 pg/mL (0-125) 72 pg/mL (0-125) 68 pg/mL (0-125) Total Protein 6.4 G/DL (6.4-8.2) 7.0 G/DL (6.4-8.2) 6.4 G/DL (6.4-8.2) Albumin 2.9 G/DL (3.4-5.0) 3.1 G/DL (3.4-5.0) 3.1 G/DL (3.4-5.0) Globulin 3.5 g/dL 3.9 g/dL 3.3 g/dL Albumin/Globulin Ratio 0.8 (1.0-2.7) 0.8 (1.0-2.7) 0.9 (1.0-2.7) Differential Total Cells Counted 100 Neutrophils % (Manual) 74 % (45-75) Lymphocytes % (Manual) 21 % (20-45) Monocytes % (Manual) 5 % (1-10) Eosinophils % (Manual) 0 % (0-3) Basophils % (Manual) 0 % (0-2) Band Neutrophils 0 % (0-8) Platelet Estimate Adequate Platelet Morphology Normal Polychromasia 1+ Anisocytosis 1+ Arterial Blood pH 7.471 (7.350-7.450) Arterial Blood Partial Pressure CO2 35.0 mmHg (35.0-45.0) Arterial Blood Partial Pressure O2 92.5 mmHg (75.0-100.0) Arterial Blood HCO3 25.0 mmol/L (22.0-26.0) Arterial Blood Oxygen Saturation 96.5 % (95-100) Arterial Blood Base Excess 1.6 (-2-2) Luis Test Positive Height (Feet): 5 Height (Inches): 9.00 Weight (Pounds): 314 Objective Physical Exam General Appearance: well appearing, nad, obese Head: normocephalic ++ ogt Resp: normal breath sounds ++ vent Cardiovascular: normal rate Gastrointestinal: normal inspection, non tender, soft, normal bowel sounds, non -distended Msk: normal inspection, back normal Skin: normal inspection, normal color, no rash, warm/dry, palpation normal, well hydrated Lymphatic: normal inspection, no adenopathy Wade Bonds MD Dec 27, 2018 16:21
--- NOTE | 2018-12-27 16:30 | NUR ---
NURSE NOTES: Dr. Monsalve ordered to have the patient FIO2 tuitrated to maintain saturations above 92% and titrate the Peep to 6, no further orders given at this time.
--- NOTE | 2018-12-27 17:00 | NUR ---
NURSE NOTES: Fentanyl increased to 300mcg/hr to rass of -2, patient was agitated and moving across the bed, now she is calm and sedated with arousal.
[2018-12-27] MEDS: cefTRIAXone 1 GM in D5W 55 ML IVPB SCH (18:17)
--- NOTE | 2018-12-27 19:25 | NUR ---
NURSE NOTES: Received report from CLARENCE Mathur. Patient awake and responsive to verbal, opens her eye with tracking. ETT 7.0/23cm at lip line with vent setting AC 24, TV 550, Peep 6 and FiO2 40%. NG tube intact and running with Glucerna 1.2 at 40ml/hr. No BM since admission. Left AC 20G IV intact and running with fentanyl 300mcg/hr and Left wrist 20G IV intact and running TKO. Bilateral soft wrist band restraints noted. Skin intact and clean on both wrist. No acute distress/SOB noted. Kept clean, dry and comfortable. Call light placed in easy reach. Will continue plan of care.
--- NOTE | 2018-12-27 19:32 | NUR ---
HAND-OFF: Report given to CLARENCE Dickey. patient remains on fentanyl at 300mcg/hr with sedation of -2 rass scale,
--- NOTE | 2018-12-27 20:06 | Cardiology Progress Note ---
Assessment/Plan Assessment/Plan 1. Sinus tachycardia, resolved, most likely due to hypoxemia, there is no need for AV carissa agents. 2. Acute respiratory failure due to right lung whiteout, s/p intubation and resolution. 3. History of chronic obstructive pulmonary disease. 4. History of salicylate overdose. 5. Morbid obesity. 6. Hyperthyroidism 7. Dyslipidemia Subjective Subjective Sinus rhythm at rate of 78. Intubated at FiO2 of 40%. Objective Last 24 Hour Vital Signs Date Time Temp Pulse Resp B/P (MAP) Pulse Ox O2 Delivery O2 Flow Rate FiO2 12/27/18 19:29 76 24 98 Mechanical Ventilator 40 78 24 40 12/27/18 19:00 24 Mechanical Ventilator 40 12/27/18 18:30 71 24 129/74 (92) 98 12/27/18 18:16 24 Mechanical Ventilator 40 12/27/18 18:15 24 Mechanical Ventilator 40 12/27/18 18:00 71 24 124/68 (86) 95 12/27/18 18:00 24 Mechanical Ventilator 40 12/27/18 17:30 77 24 137/79 (98) 98 12/27/18 17:23 80 24 40 12/27/18 17:05 24 Mechanical Ventilator 50 12/27/18 17:00 91 24 152/82 (105) 99 12/27/18 17:00 25 Mechanical Ventilator 50 12/27/18 16:55 26 Mechanical Ventilator 50 12/27/18 16:50 25 Mechanical Ventilator 50 12/27/18 16:45 24 Mechanical Ventilator 50 12/27/18 16:30 104 24 153/87 (109) 98 12/27/18 16:00 98.6 85 24 154/89 (110) 100 12/27/18 16:00 24 Mechanical Ventilator 60 12/27/18 16:00 Mechanical Ventilator 12/27/18 16:00 122 12/27/18 16:00 60 12/27/18 15:50 99 24 40 12/27/18 15:30 91 24 157/89 (111) 100 12/27/18 15:00 77 24 140/78 (98) 98 12/27/18 15:00 24 Mechanical Ventilator 60 12/27/18 14:30 80 24 133/77 (95) 96 12/27/18 14:15 24 Mechanical Ventilator 60 12/27/18 14:10 24 Mechanical Ventilator 60 12/27/18 14:05 24 Mechanical Ventilator 60 12/27/18 14:00 24 Mechanical Ventilator 60 12/27/18 14:00 125 24 148/92 (110) 98 12/27/18 13:55 24 Mechanical Ventilator 60 12/27/18 13:50 24 Mechanical Ventilator 60 12/27/18 13:45 24 Mechanical Ventilator 45 12/27/18 13:40 25 Mechanical Ventilator 45 12/27/18 13:35 25 Mechanical Ventilator 45 12/27/18 13:30 81 24 134/78 (96) 99 12/27/18 13:30 25 Mechanical Ventilator 45 12/27/18 13:25 25 Mechanical Ventilator 40 12/27/18 13:20 25 Mechanical Ventilator 40 12/27/18 13:15 25 Mechanical Ventilator 40 12/27/18 13:10 25 Mechanical Ventilator 40 12/27/18 13:07 105 24 40 12/27/18 13:05 26 Mechanical Ventilator 40 12/27/18 13:00 93 24 154/79 (104) 99 12/27/18 13:00 24 Mechanical Ventilator 40 12/27/18 12:30 95 24 129/72 (91) 98 12/27/18 12:00 60 12/27/18 12:00 Mechanical Ventilator 12/27/18 12:00 24 Mechanical Ventilator 40 12/27/18 12:00 99.2 102 24 109/67 (81) 97 12/27/18 11:57 86 12/27/18 11:40 94 24 96 Mechanical Ventilator 12/27/18 11:30 99 24 111/84 (93) 95 12/27/18 11:15 98 24 40 12/27/18 11:00 24 Mechanical Ventilator 50 12/27/18 11:00 98 24 137/91 (106) 96 12/27/18 10:30 90 24 142/83 (102) 95 12/27/18 10:00 24 Mechanical Ventilator 50 12/27/18 10:00 91 24 145/85 (105) 95 12/27/18 09:58 106 143/80 12/27/18 09:30 92 24 134/85 (101) 96 12/27/18 09:19 50 12/27/18 09:06 106 24 70 12/27/18 09:00 24 Mechanical Ventilator 70 12/27/18 09:00 89 24 135/94 (108) 99 12/27/18 08:30 86 24 145/89 (107) 97 12/27/18 08:00 83 12/27/18 08:00 99.3 85 24 139/89 (106) 97 12/27/18 08:00 24 Mechanical Ventilator 70 12/27/18 08:00 Mechanical Ventilator 12/27/18 08:00 70 12/27/18 07:30 24 Mechanical Ventilator 70 12/27/18 07:30 90 24 145/98 (114) 97 12/27/18 07:25 24 Mechanical Ventilator 70 12/27/18 07:20 24 Mechanical Ventilator 70 12/27/18 07:15 24 Mechanical Ventilator 70 12/27/18 07:10 98 24 100 Mechanical Ventilator 12/27/18 07:10 24 Mechanical Ventilator 70 12/27/18 07:00 24 Mechanical Ventilator 70 12/27/18 07:00 102 24 138/70 (92) 96 12/27/18 07:00 104 25 Mechanical Ventilator 70 12/27/18 06:50 24 Mechanical Ventilator 70 12/27/18 06:45 24 Mechanical Ventilator 70 12/27/18 06:30 87 24 138/79 (98) 99 12/27/18 06:00 93 24 133/70 (91) 98 12/27/18 06:00 24 Mechanical Ventilator 70 12/27/18 05:41 123 24 Mechanical Ventilator 70 12/27/18 05:30 100 24 137/74 (95) 97 12/27/18 05:00 108 24 138/91 (107) 96 12/27/18 05:00 24 70 12/27/18 04:30 91 24 160/74 (102) 95 12/27/18 04:00 70 12/27/18 04:00 98.9 84 24 138/77 (97) 93 12/27/18 04:00 Mechanical Ventilator 12/27/18 04:00 24 Mechanical Ventilator 70 12/27/18 04:00 84 12/27/18 03:30 72 24 134/76 (95) 97 12/27/18 03:22 71 24 99 Mechanical Ventilator 70 74 23 70 12/27/18 03:18 24 Mechanical Ventilator 70 12/27/18 03:00 74 24 135/81 (99) 97 12/27/18 03:00 24 Mechanical Ventilator 70 12/27/18 02:30 76 24 122/68 (86) 96 12/27/18 02:00 80 24 125/70 (88) 97 12/27/18 02:00 24 Mechanical Ventilator 70 12/27/18 01:30 80 24 133/77 (95) 97 12/27/18 01:00 80 24 142/74 (96) 98 12/27/18 01:00 24 Mechanical Ventilator 70 12/27/18 00:50 82 23 Mechanical Ventilator 70 12/27/18 00:30 82 24 162/81 (108) 95 12/27/18 00:00 98.7 78 24 144/79 (100) 93 12/27/18 00:00 80 12/27/18 00:00 Mechanical Ventilator 12/27/18 00:00 24 Mechanical Ventilator 70 12/27/18 00:00 70 12/26/18 23:54 76 12/26/18 23:30 77 24 125/70 (88) 93 12/26/18 23:13 80 24 99 Mechanical Ventilator 70 89 24 70 12/26/18 23:00 24 Mechanical Ventilator 70 12/26/18 23:00 76 24 130/71 (90) 96 12/26/18 22:30 79 24 145/82 (103) 97 12/26/18 22:00 79 24 133/79 (97) 95 12/26/18 22:00 24 Mechanical Ventilator 70 12/26/18 21:30 119 26 143/89 (107) 100 12/26/18 21:30 84 24 Mechanical Ventilator 70 12/26/18 21:00 24 Mechanical Ventilator 70 12/26/18 21:00 85 24 135/81 (99) 95 12/26/18 20:30 112 24 151/93 (112) 99 Intake and Output 12/26/18 12/27/18 18:59 06:59 Intake Total 585.75 ml 777 ml Output Total 1015 ml 700 ml Balance -429.25 ml 77 ml Free Water 30 ml IV Total 155.75 ml 287 ml Tube Feeding 400 ml 440 ml Other 50 ml Output Urine Total 1015 ml 700 ml Laboratory Tests Test 12/27/18 03:00 12/27/18 08:57 White Blood Count 18.1 K/UL (4.8-10.8) H Red Blood Count 3.66 M/UL (4.20-5.40) L Hemoglobin 11.4 G/DL (12.0-16.0) L Hematocrit 35.4 % (37.0-47.0) L Mean Corpuscular Volume 97 FL (80-99) Mean Corpuscular Hemoglobin 31.3 PG (27.0-31.0) H Mean Corpuscular Hemoglobin Concent 32.3 G/DL (32.0-36.0) Red Cell Distribution Width 14.7 % (11.6-14.8) Platelet Count 267 K/UL (150-450) Mean Platelet Volume 5.1 FL (6.5-10.1) L Neutrophils (%) (Auto) % (45.0-75.0) Lymphocytes (%) (Auto) % (20.0-45.0) Monocytes (%) (Auto) % (1.0-10.0) Eosinophils (%) (Auto) % (0.0-3.0) Basophils (%) (Auto) % (0.0-2.0) Differential Total Cells Counted 100 Neutrophils % (Manual) 74 % (45-75) Lymphocytes % (Manual) 21 % (20-45) Monocytes % (Manual) 5 % (1-10) Eosinophils % (Manual) 0 % (0-3) Basophils % (Manual) 0 % (0-2) Band Neutrophils 0 % (0-8) Platelet Estimate Adequate Platelet Morphology Normal Polychromasia 1+ Anisocytosis 1+ Sodium Level 145 MMOL/L (136-145) Potassium Level 4.0 MMOL/L (3.5-5.1) Chloride Level 108 MMOL/L (98-107) H Carbon Dioxide Level 24 MMOL/L (21-32) Anion Gap 13 mmol/L (5-15) Blood Urea Nitrogen 20 mg/dL (7-18) H Creatinine 1.1 MG/DL (0.55-1.30) Estimat Glomerular Filtration Rate > 60 mL/min (>60) Glucose Level 151 MG/DL (74-106) H Uric Acid 3.2 MG/DL (2.6-7.2) Calcium Level 8.9 MG/DL (8.5-10.1) Phosphorus Level 3.4 MG/DL (2.5-4.9) Magnesium Level 2.6 MG/DL (1.8-2.4) H Total Bilirubin 0.4 MG/DL (0.2-1.0) Aspartate Amino Transf (AST/SGOT) 48 U/L (15-37) H Alanine Aminotransferase (ALT/SGPT) 86 U/L (12-78) H Alkaline Phosphatase 68 U/L (46-116) C-Reactive Protein, Quantitative 2.4 mg/dL (0.00-0.90) H Pro-B-Type Natriuretic Peptide 68 pg/mL (0-125) Total Protein 6.4 G/DL (6.4-8.2) Albumin 3.1 G/DL (3.4-5.0) L Globulin 3.3 g/dL Albumin/Globulin Ratio 0.9 (1.0-2.7) L Arterial Blood pH 7.471 (7.350-7.450) Arterial Blood Partial Pressure CO2 35.0 mmHg (35.0-45.0) Arterial Blood Partial Pressure O2 92.5 mmHg (75.0-100.0) Arterial Blood HCO3 25.0 mmol/L (22.0-26.0) Arterial Blood Oxygen Saturation 96.5 % (95-100) Arterial Blood Base Excess 1.6 (-2-2) Luis Test Positive Microbiology Date/Time Source Procedure Growth Status 12/26/18 08:10 Sputum Induced Gram Stain - Final Resulted 12/26/18 08:10 Sputum Culture - Preliminary Staphylococcus Aureus Usual Respiratory Candice Resulted 12/26/18 09:14 Indwelling Cath Urine Culture - Preliminary NO GROWTH Resulted Objective HEENT: Atraumatic and normocephalic. Anicteric. Pupils are equal, round, and reactive to light and accommodation, intubated. NECK: JVP cannot be assessed. No carotid bruit. CARDIOVASCULAR: Normal S1, S2. Regular rate and rhythm. No murmurs, gallops, or rubs. PMI is at fourth intercostal space in the midclavicular line. LUNGS: Diminished breath sounds in both lungs. ABDOMEN: Soft, obese. No hepatosplenomegaly. Positive bowel sounds. EXTREMITIES: No evidence of edema, clubbing, or cyanosis. Velasquez Staton MD Dec 27, 2018 20:06
--- NOTE | 2018-12-27 21:10 | NUR ---
NURSE NOTES: All due meds given. No distress noted. Will continue plan of care.
--- NOTE | 2018-12-27 21:25 | Pulmonolgy Critical Care Note ---
Critical Care - Asmt/Plan Assessment/Plan: Pulmonary CCM Progress Note HPI Patient is a 58-year-old woman with apparent history of Obstructive Airways Disease, Schizophrenia, Obesity, presented with shortness of breath, increased anxiety. Per ER notes history limited by mental status, being a poor historian. Patient noted to be extremely short of breath requiring intubation in the ED. On mechainical ventilation in the ICU Noted to have elevated ASA level on admission FIO2 reduced- PEEP at 7, AB changed Physical Exam Vital Signs Noted General Appearance: normal inspection, mildly sedated on the ventilator Head: NCAT ENT: Moist mm, ETT, OGT, JVP not visible Neck: normal inspection, full range of motion, supple, no bony tend Respiratory: normal inspection, no respiratory distress, no retraction, mild wheezing, reduced basal BS Cardiovascular: regular rate, rhythm, Normal HS1, HS2 Gastrointestinal: normal inspection, normal bowel sounds, non tender, soft, no guarding, no hernia Genitourinary: no CVA tenderness Musculoskeletal: normal inspection, moderate edema Neurologic: no focal signs noted, follows commands Impression: Respiratory failure - Hypercapneic and Hypoxic Elevated Salicylate level Pneumonia Possible Congestive Heart Failure Salicylate overdose Schizophrenia/Psychosis Asthma Obesity Plan: ACV Vt 550 P6 Adjust FIO2 sats 90-94%, wean as tolerated IV Antibiotics per ID IV Solumedrol reduced HHN Wean PEEP/FIO2 as tolerated ISS [employer]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 med PRN Sedation BLE dupplex PPX Keep negative balance OGT feeding Labs Noted Test 12/21/18 10:45 White Blood Count 8.8 K/UL (4.8-10.8) Red Blood Count 4.10 M/UL (4.20-5.40) Hemoglobin 12.7 G/DL (12.0-16.0) Hematocrit 39.3 % (37.0-47.0) Mean Corpuscular Volume 96 FL (80-99) Mean Corpuscular Hemoglobin 30.9 PG (27.0-31.0) Mean Corpuscular Hemoglobin Concent 32.2 G/DL (32.0-36.0) Red Cell Distribution Width 14.7 % (11.6-14.8) Platelet Count 292 K/UL (150-450) Mean Platelet Volume 5.0 FL (6.5-10.1) Neutrophils (%) (Auto) 50.2 % (45.0-75.0) Lymphocytes (%) (Auto) 41.4 % (20.0-45.0) Monocytes (%) (Auto) 6.2 % (1.0-10.0) Eosinophils (%) (Auto) 0.2 % (0.0-3.0) Basophils (%) (Auto) 2.0 % (0.0-2.0) Sodium Level 142 MMOL/L (136-145) Potassium Level 4.0 MMOL/L (3.5-5.1) Chloride Level 110 MMOL/L (98-107) Carbon Dioxide Level 20 MMOL/L (21-32) Anion Gap 12 mmol/L (5-15) Blood Urea Nitrogen 11 mg/dL (7-18) Creatinine 1.0 MG/DL (0.55-1.30) Estimat Glomerular Filtration Rate > 60 mL/min (>60) Glucose Level 90 MG/DL (74-106) Calcium Level 8.5 MG/DL (8.5-10.1) Total Bilirubin 0.3 MG/DL (0.2-1.0) Aspartate Amino Transf (AST/SGOT) 44 U/L (15-37) Alanine Aminotransferase (ALT/SGPT) 58 U/L (12-78) Alkaline Phosphatase 79 U/L (46-116) Troponin I 0.000 ng/mL (0.000-0.056) Total Protein 7.8 G/DL (6.4-8.2) Albumin 3.5 G/DL (3.4-5.0) Globulin 4.3 g/dL Albumin/Globulin Ratio 0.8 (1.0-2.7) Thyroid Stimulating Hormone (TSH) 0.239 uiU/mL (0.358-3.740) Salicylates Level 46.0 ug/mL (2.8-20) Acetaminophen Level < 2 MCG/ML (10-30) Serum Alcohol < 3 mg/dL CXR: ETT appropriate, basal infiltrates, vascular congestion Critical Care - Objective Last 24 Hour Vital Signs Date Time Temp Pulse Resp B/P (MAP) Pulse Ox O2 Delivery O2 Flow Rate FiO2 12/27/18 20:48 75 24 40 12/27/18 20:00 Mechanical Ventilator 12/27/18 20:00 40 12/27/18 19:29 76 24 98 Mechanical Ventilator 40 78 24 40 12/27/18 19:00 24 Mechanical Ventilator 40 12/27/18 18:30 71 24 129/74 (92) 98 12/27/18 18:16 24 Mechanical Ventilator 40 12/27/18 18:15 24 Mechanical Ventilator 40 12/27/18 18:00 71 24 124/68 (86) 95 12/27/18 18:00 24 Mechanical Ventilator 40 12/27/18 17:30 77 24 137/79 (98) 98 12/27/18 17:23 80 24 40 12/27/18 17:05 24 Mechanical Ventilator 50 12/27/18 17:00 91 24 152/82 (105) 99 12/27/18 17:00 25 Mechanical Ventilator 50 12/27/18 16:55 26 Mechanical Ventilator 50 12/27/18 16:50 25 Mechanical Ventilator 50 12/27/18 16:45 24 Mechanical Ventilator 50 12/27/18 16:30 104 24 153/87 (109) 98 12/27/18 16:00 98.6 85 24 154/89 (110) 100 12/27/18 16:00 24 Mechanical Ventilator 60 12/27/18 16:00 Mechanical Ventilator 12/27/18 16:00 122 12/27/18 16:00 60 12/27/18 15:50 99 24 40 12/27/18 15:30 91 24 157/89 (111) 100 12/27/18 15:00 77 24 140/78 (98) 98 12/27/18 15:00 24 Mechanical Ventilator 60 12/27/18 14:30 80 24 133/77 (95) 96 12/27/18 14:15 24 Mechanical Ventilator 60 12/27/18 14:10 24 Mechanical Ventilator 60 12/27/18 14:05 24 Mechanical Ventilator 60 12/27/18 14:00 24 Mechanical Ventilator 60 12/27/18 14:00 125 24 148/92 (110) 98 12/27/18 13:55 24 Mechanical Ventilator 60 12/27/18 13:50 24 Mechanical Ventilator 60 12/27/18 13:45 24 Mechanical Ventilator 45 12/27/18 13:40 25 Mechanical Ventilator 45 12/27/18 13:35 25 Mechanical Ventilator 45 12/27/18 13:30 81 24 134/78 (96) 99 12/27/18 13:30 25 Mechanical Ventilator 45 12/27/18 13:25 25 Mechanical Ventilator 40 12/27/18 13:20 25 Mechanical Ventilator 40 12/27/18 13:15 25 Mechanical Ventilator 40 12/27/18 13:10 25 Mechanical Ventilator 40 12/27/18 13:07 105 24 40 12/27/18 13:05 26 Mechanical Ventilator 40 12/27/18 13:00 93 24 154/79 (104) 99 12/27/18 13:00 24 Mechanical Ventilator 40 12/27/18 12:30 95 24 129/72 (91) 98 12/27/18 12:00 60 12/27/18 12:00 Mechanical Ventilator 12/27/18 12:00 24 Mechanical Ventilator 40 12/27/18 12:00 99.2 102 24 109/67 (81) 97 12/27/18 11:57 86 12/27/18 11:40 94 24 96 Mechanical Ventilator 12/27/18 11:30 99 24 111/84 (93) 95 12/27/18 11:15 98 24 40 12/27/18 11:00 24 Mechanical Ventilator 50 12/27/18 11:00 98 24 137/91 (106) 96 12/27/18 10:30 90 24 142/83 (102) 95 12/27/18 10:00 24 Mechanical Ventilator 50 12/27/18 10:00 91 24 145/85 (105) 95 12/27/18 09:58 106 143/80 12/27/18 09:30 92 24 134/85 (101) 96 12/27/18 09:19 50 12/27/18 09:06 106 24 70 12/27/18 09:00 24 Mechanical Ventilator 70 12/27/18 09:00 89 24 135/94 (108) 99 12/27/18 08:30 86 24 145/89 (107) 97 12/27/18 08:00 83 12/27/18 08:00 99.3 85 24 139/89 (106) 97 12/27/18 08:00 24 Mechanical Ventilator 70 12/27/18 08:00 Mechanical Ventilator 12/27/18 08:00 70 12/27/18 07:30 24 Mechanical Ventilator 70 12/27/18 07:30 90 24 145/98 (114) 97 12/27/18 07:25 24 Mechanical Ventilator 70 12/27/18 07:20 24 Mechanical Ventilator 70 12/27/18 07:15 24 Mechanical Ventilator 70 12/27/18 07:10 98 24 100 Mechanical Ventilator 12/27/18 07:10 24 Mechanical Ventilator 70 12/27/18 07:00 24 Mechanical Ventilator 70 12/27/18 07:00 102 24 138/70 (92) 96 12/27/18 07:00 104 25 Mechanical Ventilator 70 12/27/18 06:50 24 Mechanical Ventilator 70 12/27/18 06:45 24 Mechanical Ventilator 70 12/27/18 06:30 87 24 138/79 (98) 99 12/27/18 06:00 93 24 133/70 (91) 98 12/27/18 06:00 24 Mechanical Ventilator 70 12/27/18 05:41 123 24 Mechanical Ventilator 70 12/27/18 05:30 100 24 137/74 (95) 97 12/27/18 05:00 108 24 138/91 (107) 96 12/27/18 05:00 24 70 12/27/18 04:30 91 24 160/74 (102) 95 12/27/18 04:00 70 12/27/18 04:00 98.9 84 24 138/77 (97) 93 12/27/18 04:00 Mechanical Ventilator 12/27/18 04:00 24 Mechanical Ventilator 70 12/27/18 04:00 84 12/27/18 03:30 72 24 134/76 (95) 97 12/27/18 03:22 71 24 99 Mechanical Ventilator 70 74 23 70 12/27/18 03:18 24 Mechanical Ventilator 70 12/27/18 03:00 74 24 135/81 (99) 97 12/27/18 03:00 24 Mechanical Ventilator 70 12/27/18 02:30 76 24 122/68 (86) 96 12/27/18 02:00 80 24 125/70 (88) 97 12/27/18 02:00 24 Mechanical Ventilator 70 12/27/18 01:30 80 24 133/77 (95) 97 12/27/18 01:00 80 24 142/74 (96) 98 12/27/18 01:00 24 Mechanical Ventilator 70 12/27/18 00:50 82 23 Mechanical Ventilator 70 12/27/18 00:30 82 24 162/81 (108) 95 12/27/18 00:00 98.7 78 24 144/79 (100) 93 12/27/18 00:00 80 12/27/18 00:00 Mechanical Ventilator 12/27/18 00:00 24 Mechanical Ventilator 70 12/27/18 00:00 70 12/26/18 23:54 76 12/26/18 23:30 77 24 125/70 (88) 93 12/26/18 23:13 80 24 99 Mechanical Ventilator 70 89 24 70 12/26/18 23:00 24 Mechanical Ventilator 70 12/26/18 23:00 76 24 130/71 (90) 96 12/26/18 22:30 79 24 145/82 (103) 97 12/26/18 22:00 79 24 133/79 (97) 95 12/26/18 22:00 24 Mechanical Ventilator 70 12/26/18 21:30 119 26 143/89 (107) 100 12/26/18 21:30 84 24 Mechanical Ventilator 70 Micro: Microbiology Date/Time Source Procedure Growth Status 12/26/18 08:10 Sputum Induced Gram Stain - Final Resulted 12/26/18 08:10 Sputum Culture - Preliminary Staphylococcus Aureus Usual Respiratory Candice Resulted 12/26/18 09:14 Indwelling Cath Urine Culture - Preliminary NO GROWTH Resulted Accucheck: 148 Critical Care - Subjective ROS Limited/Unobtainable: No FI02: 40 Vent Support Breath Rate: 24 Vent Support Mode: AC Vent Tidal Volume: 550 Sputum Amount: Scant PEEP: 6.0 PIP: 33 Tube Feeding Amount: 40 I&O: Intake and Output 12/26/18 12/27/18 18:59 06:59 Intake Total 585.75 ml 777 ml Output Total 1015 ml 700 ml Balance -429.25 ml 77 ml Free Water 30 ml IV Total 155.75 ml 287 ml Tube Feeding 400 ml 440 ml Other 50 ml Output Urine Total 1015 ml 700 ml ET-Tube: 7.0 ET Position: 22 Kevan Monsalve MD Dec 27, 2018 21:25
--- NOTE | 2018-12-27 22:02 | NUR ---
NURSE NOTES: Oral care provided and repositioned patient.
--- NOTE | 2018-12-27 22:21 | General Progress Note ---
Assessment/Plan Problem List: (1) Opioid dependence ICD Codes: F11.20 - Opioid dependence, uncomplicated SNOMED: 12360560 (2) Altered level of consciousness ICD Codes: R40.4 - Transient alteration of awareness SNOMED: 0416583 (3) Back pain ICD Codes: M54.9 - Dorsalgia, unspecified SNOMED: 956348258 (4) Opiate dependence ICD Codes: F11.20 - Opioid dependence, uncomplicated SNOMED: 37091125 (5) Depression ICD Codes: F32.9 - Major depressive disorder, single episode, unspecified SNOMED: 03913073 (6) Peripheral edema ICD Codes: R60.9 - Edema, unspecified SNOMED: 923827139 (7) Leg pain ICD Codes: M79.606 - Pain in leg, unspecified SNOMED: 99611429 (8) Headache ICD Codes: R51 - Headache SNOMED: 44526878 (9) COPD exacerbation ICD Codes: J44.1 - Chronic obstructive pulmonary disease with (acute) exacerbation SNOMED: 760609645 (10) Psychosis ICD Codes: F29 - Unsp psychosis not due to a substance or known physiol cond SNOMED: 77400514 (11) Respiratory failure ICD Codes: J96.90 - Respiratory failure, unspecified, unspecified whether with hypoxia or hypercapnia SNOMED: 517021477 (12) Salicylate overdose ICD Codes: T39.091A - Poisoning by salicylates, accidental (unintentional), initial encounter SNOMED: 945695513, 5062405 (13) Asthma ICD Codes: J45.909 - Unspecified asthma, uncomplicated SNOMED: 883743392, 5263940 (14) Anemia ICD Codes: D64.9 - Anemia, unspecified SNOMED: 314282898 Status: progressing, unchanged Assessment/Plan: asthma no wheezing resp insuff reviewed chart and labs anemia check afebrile no h/h Subjective ROS Limited/Unobtainable: Yes Allergies: Coded Allergies: No Known Allergies (Unverified , 11/07/13) Objective Last 24 Hour Vital Signs Date Time Temp Pulse Resp B/P (MAP) Pulse Ox O2 Delivery O2 Flow Rate FiO2 12/27/18 21:00 73 24 128/63 (84) 96 12/27/18 20:48 75 24 40 12/27/18 20:30 73 24 139/72 (94) 98 8/26/19 20:00 Mechanical Ventilator 12/27/18 20:00 98.0 79 24 146/80 (102) 98 12/27/18 20:00 40 12/27/18 19:30 78 24 149/89 (109) 99 12/27/18 19:29 76 24 98 Mechanical Ventilator 40 78 24 40 12/27/18 19:00 24 Mechanical Ventilator 40 12/27/18 19:00 81 24 133/74 (93) 96 12/27/18 18:30 71 24 129/74 (92) 98 12/27/18 18:16 24 Mechanical Ventilator 40 12/27/18 18:15 24 Mechanical Ventilator 40 12/27/18 18:00 71 24 124/68 (86) 95 12/27/18 18:00 24 Mechanical Ventilator 40 12/27/18 17:30 77 24 137/79 (98) 98 12/27/18 17:23 80 24 40 12/27/18 17:05 24 Mechanical Ventilator 50 12/27/18 17:00 91 24 152/82 (105) 99 12/27/18 17:00 25 Mechanical Ventilator 50 12/27/18 16:55 26 Mechanical Ventilator 50 12/27/18 16:50 25 Mechanical Ventilator 50 12/27/18 16:45 24 Mechanical Ventilator 50 12/27/18 16:30 104 24 153/87 (109) 98 12/27/18 16:00 98.6 85 24 154/89 (110) 100 12/27/18 16:00 24 Mechanical Ventilator 60 12/27/18 16:00 Mechanical Ventilator 12/27/18 16:00 122 12/27/18 16:00 60 12/27/18 15:50 99 24 40 12/27/18 15:30 91 24 157/89 (111) 100 12/27/18 15:00 77 24 140/78 (98) 98 12/27/18 15:00 24 Mechanical Ventilator 60 12/27/18 14:30 80 24 133/77 (95) 96 12/27/18 14:15 24 Mechanical Ventilator 60 12/27/18 14:10 24 Mechanical Ventilator 60 12/27/18 14:05 24 Mechanical Ventilator 60 12/27/18 14:00 24 Mechanical Ventilator 60 12/27/18 14:00 125 24 148/92 (110) 98 12/27/18 13:55 24 Mechanical Ventilator 60 12/27/18 13:50 24 Mechanical Ventilator 60 12/27/18 13:45 24 Mechanical Ventilator 45 12/27/18 13:40 25 Mechanical Ventilator 45 12/27/18 13:35 25 Mechanical Ventilator 45 12/27/18 13:30 81 24 134/78 (96) 99 12/27/18 13:30 25 Mechanical Ventilator 45 12/27/18 13:25 25 Mechanical Ventilator 40 12/27/18 13:20 25 Mechanical Ventilator 40 12/27/18 13:15 25 Mechanical Ventilator 40 12/27/18 13:10 25 Mechanical Ventilator 40 12/27/18 13:07 105 24 40 12/27/18 13:05 26 Mechanical Ventilator 40 12/27/18 13:00 93 24 154/79 (104) 99 12/27/18 13:00 24 Mechanical Ventilator 40 12/27/18 12:30 95 24 129/72 (91) 98 12/27/18 12:00 60 12/27/18 12:00 Mechanical Ventilator 12/27/18 12:00 24 Mechanical Ventilator 40 12/27/18 12:00 99.2 102 24 109/67 (81) 97 12/27/18 11:57 86 12/27/18 11:40 94 24 96 Mechanical Ventilator 12/27/18 11:30 99 24 111/84 (93) 95 12/27/18 11:15 98 24 40 12/27/18 11:00 24 Mechanical Ventilator 50 12/27/18 11:00 98 24 137/91 (106) 96 12/27/18 10:30 90 24 142/83 (102) 95 12/27/18 10:00 24 Mechanical Ventilator 50 12/27/18 10:00 91 24 145/85 (105) 95 12/27/18 09:58 106 143/80 12/27/18 09:30 92 24 134/85 (101) 96 12/27/18 09:19 50 12/27/18 09:06 106 24 70 12/27/18 09:00 24 Mechanical Ventilator 70 12/27/18 09:00 89 24 135/94 (108) 99 12/27/18 08:30 86 24 145/89 (107) 97 12/27/18 08:00 83 12/27/18 08:00 99.3 85 24 139/89 (106) 97 12/27/18 08:00 24 Mechanical Ventilator 70 12/27/18 08:00 Mechanical Ventilator 12/27/18 08:00 70 12/27/18 07:30 24 Mechanical Ventilator 70 12/27/18 07:30 90 24 145/98 (114) 97 12/27/18 07:25 24 Mechanical Ventilator 70 12/27/18 07:20 24 Mechanical Ventilator 70 12/27/18 07:15 24 Mechanical Ventilator 70 12/27/18 07:10 98 24 100 Mechanical Ventilator 12/27/18 07:10 24 Mechanical Ventilator 70 12/27/18 07:00 24 Mechanical Ventilator 70 12/27/18 07:00 102 24 138/70 (92) 96 12/27/18 07:00 104 25 Mechanical Ventilator 70 12/27/18 06:50 24 Mechanical Ventilator 70 12/27/18 06:45 24 Mechanical Ventilator 70 12/27/18 06:30 87 24 138/79 (98) 99 12/27/18 06:00 93 24 133/70 (91) 98 12/27/18 06:00 24 Mechanical Ventilator 70 12/27/18 05:41 123 24 Mechanical Ventilator 70 12/27/18 05:30 100 24 137/74 (95) 97 12/27/18 05:00 108 24 138/91 (107) 96 12/27/18 05:00 24 70 12/27/18 04:30 91 24 160/74 (102) 95 12/27/18 04:00 70 12/27/18 04:00 98.9 84 24 138/77 (97) 93 12/27/18 04:00 Mechanical Ventilator 12/27/18 04:00 24 Mechanical Ventilator 70 12/27/18 04:00 84 12/27/18 03:30 72 24 134/76 (95) 97 12/27/18 03:22 71 24 99 Mechanical Ventilator 70 74 23 70 12/27/18 03:18 24 Mechanical Ventilator 70 12/27/18 03:00 74 24 135/81 (99) 97 12/27/18 03:00 24 Mechanical Ventilator 70 12/27/18 02:30 76 24 122/68 (86) 96 12/27/18 02:00 80 24 125/70 (88) 97 12/27/18 02:00 24 Mechanical Ventilator 70 8/26/19 01:30 80 24 133/77 (95) 97 12/27/18 01:00 80 24 142/74 (96) 98 12/27/18 01:00 24 Mechanical Ventilator 70 12/27/18 00:50 82 23 Mechanical Ventilator 70 12/27/18 00:30 82 24 162/81 (108) 95 12/27/18 00:00 98.7 78 24 144/79 (100) 93 12/27/18 00:00 80 12/27/18 00:00 Mechanical Ventilator 12/27/18 00:00 24 Mechanical Ventilator 70 12/27/18 00:00 70 12/26/18 23:54 76 12/26/18 23:30 77 24 125/70 (88) 93 12/26/18 23:13 80 24 99 Mechanical Ventilator 70 89 24 70 12/26/18 23:00 24 Mechanical Ventilator 70 12/26/18 23:00 76 24 130/71 (90) 96 12/26/18 22:30 79 24 145/82 (103) 97 Intake and Output 12/26/18 12/27/18 18:59 06:59 Intake Total 585.75 ml 777 ml Output Total 1015 ml 700 ml Balance -429.25 ml 77 ml Free Water 30 ml IV Total 155.75 ml 287 ml Tube Feeding 400 ml 440 ml Other 50 ml Output Urine Total 1015 ml 700 ml Laboratory Tests 12/27/18 03:00: White Blood Count 18.1H, Red Blood Count 3.66L, Hemoglobin 11.4L, Hematocrit 35.4L, Mean Corpuscular Volume 97, Mean Corpuscular Hemoglobin 31.3H, Mean Corpuscular Hemoglobin Concent 32.3, Red Cell Distribution Width 14.7, Platelet Count 267, Mean Platelet Volume 5.1L, Neutrophils (%) (Auto) , Lymphocytes (%) ( Auto) , Monocytes (%) (Auto) , Eosinophils (%) (Auto) , Basophils (%) (Auto) , Differential Total Cells Counted 100, Neutrophils % (Manual) 74, Lymphocytes % ( Manual) 21, Monocytes % (Manual) 5, Eosinophils % (Manual) 0, Basophils % ( Manual) 0, Band Neutrophils 0, Platelet Estimate Adequate, Platelet Morphology Normal, Polychromasia 1+, Anisocytosis 1+, Sodium Level 145, Potassium Level 4.0 , Chloride Level 108H, Carbon Dioxide Level 24, Anion Gap 13, Blood Urea Nitrogen 20H, Creatinine 1.1, Estimat Glomerular Filtration Rate > 60, Glucose Level 151H, Uric Acid 3.2, Calcium Level 8.9, Phosphorus Level 3.4, Magnesium Level 2.6H, Total Bilirubin 0.4, Aspartate Amino Transf (AST/SGOT) 48H, Alanine Aminotransferase (ALT/SGPT) 86H, Alkaline Phosphatase 68, C-Reactive Protein, Quantitative 2.4H, Pro-B-Type Natriuretic Peptide 68, Total Protein 6.4, Albumin 3.1L, Globulin 3.3, Albumin/Globulin Ratio 0.9L 12/27/18 08:57: Arterial Blood pH 7.471H, Arterial Blood Partial Pressure CO2 35.0, Arterial Blood Partial Pressure O2 92.5, Arterial Blood HCO3 25.0, Arterial Blood Oxygen Saturation 96.5, Arterial Blood Base Excess 1.6, Luis Test Positive Height (Feet): 5 Height (Inches): 9.00 Weight (Pounds): 314 Cardiovascular: normal rate Respiratory/Chest: lungs clear Abdomen: soft Jasmine Joe MD Dec 27, 2018 22:21
[2018-12-28] VITALS (62 sets, daily range): BP systolic 84–196; BP diastolic 41–105
--- NOTE | 2018-12-28 | NUR ---
NURSE NOTES: Renewed restraints and jauregui orders. Repositioned patient. RASS -2 wiht fentanyl drip 100mcg/hr. Will continue plan of care.
--- NOTE | 2018-12-28 02:05 | NUR ---
NURSE NOTES: Oral care provided and repositioned.
[2018-12-28] MEDS: Albuterol/Ipratropium 3ml neb HHN SCH ×6 (02:56→22:33)
[2018-12-28] MEDS: Acetylcysteine 20% Soln 4ml HHN SCH ×6 (02:57→22:33)
--- NOTE | 2018-12-28 04:03 | NUR ---
NURSE NOTES: Bed bath given.
[2018-12-28] MEDS: LORazepam Inj 2mg/ml 1ml IV PRN ×3 (05:41→23:41)
[2018-12-28] MEDS: Solu-MEDROL 40mg Inj IVP SCH ×3 (05:41→17:01)
[2018-12-28] MEDS: NovoLOG Insulin Flexpen SUBQ SCH ×3 (05:42→17:07)
--- NOTE | 2018-12-28 05:46 | NUR ---
NURSE NOTES: Patient is restlessness. Ativan PRN given.
--- NOTE | 2018-12-28 07:18 | NUR ---
HAND-OFF: Report given to CLARENCE Andino. Endorsed plan of care.
--- NOTE | 2018-12-28 07:30 | NUR ---
NURSE NOTES: Received report from CLARENCE Dickey. Patient is sedated with fentanyl, at RASS -2. Orally intubated, ETT 7.0, 23cm at lip line, vent settings: AC24, TV550, FIO2 40%, PEEP 6. Bilateral diminished breath sounds noted upon auscultation. SR noted on the color television console monitor. No acute distress noted. OGT intact, stopped tube feeding, Glucerna 1.2, for weaning trial this am. Left AC 20G and Left wrist 20G intact, running fentanyl 300mcg/hr. Bilateral soft wrist restraints intact, pulses present, no skin breakdown noted. Patient on P200 mattress. SCDs on bilateral lower extremities. Bed in lowest position, locked, side rails upx3. Bed alarm on. Call light within reach. Will continue to monitor. Addendum: 12/28/18 at 0803 by KIRA PAULA RN Mon cath intact and patent, draining yellow urine by gravity.
[2018-12-28] MEDS: Doxycycline Monohydrate 100mg NG SCH ×2 (08:15→20:33)
[2018-12-28] MEDS: fentaNYL Citrate 2500mcg in NS 250ml IV SCH (08:16)
[2018-12-28] MEDS: Pantoprazole Inj IVP SCH ×2 (08:17→20:33)
[2018-12-28 09:15] LABS: HEMATOCRIT 38.2 % (37.0-47.0); HEMOGLOBIN 12.2 G/DL (12.0-16.0); MEAN CORPUSCULAR VOLUME 97 FL (80-99); PLATELET COUNT 247 K/UL (150-450); RED BLOOD COUNT 3.93 M/UL (4.20-5.40); RED CELL DISTRIBUTION WIDTH 14.8 % (11.6-14.8)
--- NOTE | 2018-12-28 09:15 | NUR ---
NURSE NOTES: Fentanyl gtt was held for weaning. RT made aware. Patient resting in bed comfortably.
[2018-12-28 09:26] LABS: ALANINE AMINOTRANSFERASE 88 U/L (12-78); ALBUMIN/GLOBULIN RATIO 0.8 (1.0-2.7); ALKALINE PHOSPHATASE 67 U/L (46-116); ANION GAP 11 mmol/L (5-15); ASPARTATE AMINO TRANSFERASE 46 U/L (15-37); BILIRUBIN,TOTAL 0.4 MG/DL (0.2-1.0); BLOOD UREA NITROGEN 20 mg/dL (7-18); CALCIUM 9.1 MG/DL (8.5-10.1); CARBON DIOXIDE 26 MMOL/L (21-32); CHLORIDE 110 MMOL/L (98-107); POTASSIUM 4.5 MMOL/L (3.5-5.1); SODIUM 147 MMOL/L (136-145)
--- NOTE | 2018-12-28 09:55 | NUR ---
RESPIRATORY NOTE: Pt placed on CPAP PS 8 PEEP +6. SaO2 98, HR 91. After 5 mins, pt asked to put her back on AC due to shortness of breath. CLARENCE mims aware.
[2018-12-28 09:56] LABS: PHOSPHORUS 3.8 MG/DL (2.5-4.9)
--- NOTE | 2018-12-28 10:00 | NUR ---
NURSE NOTES: patient failed weaning, pt c/o SOB per RT. patient was slightly agitated. 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 will continue to monitor.
[2018-12-28] MEDS ORDERED: Tubing IV Secondary IV ONE (10:09)
[2018-12-28] MEDS ORDERED: NS 275ml ONE (10:09)
--- NOTE | 2018-12-28 10:27 | Infectious Diseases Prog Note ---
Assessment/Plan Assessment/Plan IMPRESSION: Sepsis or systemic inflammatory response syndrome, COPD, Hypercapnic respiratory failure, s Salicylate toxicity, Morbid obesity. Leukocytosis worsening RECOMMENDATION: continue ceftriaxone until expiration time today Continue Doxycycline Sputum culture: normal aniyah& Staph aureus Taper steroids. repeat CXR Subjective ROS Limited/Unobtainable: Yes Gastrointestinal/Abdominal: Reports: constipation Neurologic: Reports: other - on restraint Musculoskeletal: Reports: pain Allergies: Coded Allergies: No Known Allergies (Unverified , 11/07/13) Objective Vital Signs Last 24 Hour Vital Signs Date Time Temp Pulse Resp B/P (MAP) Pulse Ox O2 Delivery O2 Flow Rate FiO2 12/28/18 10:00 24 Mechanical Ventilator 40 12/28/18 10:00 95 24 118/65 (82) 98 12/28/18 09:55 100 12/28/18 09:30 94 24 119/68 (85) 97 12/28/18 09:18 97 24 100 Mechanical Ventilator 40 82 24 40 12/28/18 09:15 24 Mechanical Ventilator 40 12/28/18 09:00 94 24 98/86 (90) 97 12/28/18 09:00 24 Mechanical Ventilator 40 12/28/18 08:30 84 24 121/71 (88) 99 12/28/18 08:16 102 129/79 12/28/18 08:16 24 Mechanical Ventilator 40 12/28/18 08:15 24 Mechanical Ventilator 40 12/28/18 08:00 98.8 90 24 111/58 (75) 100 12/28/18 08:00 24 Mechanical Ventilator 40 12/28/18 08:00 85 12/28/18 08:00 40 12/28/18 08:00 Mechanical Ventilator 12/28/18 07:30 85 24 119/65 (83) 96 12/28/18 07:05 82 24 100 Mechanical Ventilator 40 82 24 40 12/28/18 07:00 24 Mechanical Ventilator 40 12/28/18 07:00 109 22 129/75 (93) 97 12/28/18 06:30 90 23 134/84 (101) 98 12/28/18 06:00 24 Mechanical Ventilator 40 12/28/18 06:00 85 24 130/79 (96) 99 12/28/18 05:45 24 Mechanical Ventilator 40 12/28/18 05:30 122 22 126/82 (97) 98 12/28/18 05:16 89 24 40 12/28/18 05:00 102 23 111/64 (80) 98 12/28/18 04:45 24 Mechanical Ventilator 40 12/28/18 04:30 117 23 164/99 (120) 96 12/28/18 04:00 40 12/28/18 04:00 Mechanical Ventilator 12/28/18 04:00 98.0 117 24 196/92 (126) 97 12/28/18 04:00 103 12/28/18 03:45 24 Mechanical Ventilator 40 12/28/18 03:30 119 22 162/104 (123) 92 12/28/18 03:00 74 24 136/81 (99) 98 12/28/18 02:55 68 24 97 Mechanical Ventilator 40 68 24 40 12/28/18 02:45 24 Mechanical Ventilator 40 12/28/18 02:30 69 24 144/81 (102) 98 12/28/18 02:00 70 24 148/81 (103) 97 12/28/18 01:45 24 Mechanical Ventilator 40 12/28/18 01:30 71 24 143/91 (108) 96 12/28/18 01:16 73 24 40 12/28/18 01:00 70 24 136/80 (98) 95 12/28/18 00:45 21 Mechanical Ventilator 40 12/28/18 00:40 21 Mechanical Ventilator 40 12/28/18 00:35 24 Mechanical Ventilator 40 12/28/18 00:30 72 24 135/76 (95) 95 12/28/18 00:30 24 Mechanical Ventilator 40 12/28/18 00:25 24 Mechanical Ventilator 40 12/28/18 00:20 24 Mechanical Ventilator 40 12/28/18 00:15 24 Mechanical Ventilator 40 12/28/18 00:10 24 Mechanical Ventilator 40 12/28/18 00:05 24 Mechanical Ventilator 40 12/28/18 00:00 40 12/28/18 00:00 24 Mechanical Ventilator 40 12/28/18 00:00 68 12/28/18 00:00 98.2 70 24 132/79 (96) 97 12/28/18 00:00 Mechanical Ventilator 12/27/18 23:55 24 Mechanical Ventilator 40 12/27/18 23:50 24 Mechanical Ventilator 40 12/27/18 23:45 24 Mechanical Ventilator 40 12/27/18 23:40 24 Mechanical Ventilator 40 12/27/18 23:35 24 Mechanical Ventilator 40 12/27/18 23:30 82 23 169/88 (115) 97 12/27/18 23:30 24 Mechanical Ventilator 40 12/27/18 23:25 24 Mechanical Ventilator 40 12/27/18 23:20 24 Mechanical Ventilator 40 12/27/18 23:15 24 Mechanical Ventilator 40 12/27/18 23:14 68 24 98 Mechanical Ventilator 40 78 24 40 12/27/18 23:10 24 Mechanical Ventilator 40 12/27/18 23:05 24 Mechanical Ventilator 40 12/27/18 23:00 69 24 118/66 (83) 97 12/27/18 23:00 24 Mechanical Ventilator 40 12/27/18 22:30 64 24 135/75 (95) 96 12/27/18 22:00 24 Mechanical Ventilator 40 12/27/18 22:00 65 23 126/71 (89) 95 12/27/18 21:30 69 24 123/66 (85) 95 12/27/18 21:00 24 Mechanical Ventilator 40 12/27/18 21:00 73 24 128/63 (84) 96 12/27/18 20:48 75 24 40 12/27/18 20:30 73 24 139/72 (94) 98 12/27/18 20:00 Mechanical Ventilator 12/27/18 20:00 98.0 79 24 146/80 (102) 98 12/27/18 20:00 24 Mechanical Ventilator 40 12/27/18 20:00 40 12/27/18 20:00 78 12/27/18 19:30 78 24 149/89 (109) 99 12/27/18 19:29 76 24 98 Mechanical Ventilator 40 78 24 40 12/27/18 19:00 24 Mechanical Ventilator 40 12/27/18 19:00 81 24 133/74 (93) 96 12/27/18 18:30 71 24 129/74 (92) 98 12/27/18 18:16 24 Mechanical Ventilator 40 12/27/18 18:15 24 Mechanical Ventilator 40 12/27/18 18:00 71 24 124/68 (86) 95 12/27/18 18:00 24 Mechanical Ventilator 40 12/27/18 17:30 77 24 137/79 (98) 98 12/27/18 17:23 80 24 40 12/27/18 17:05 24 Mechanical Ventilator 50 12/27/18 17:00 91 24 152/82 (105) 99 12/27/18 17:00 25 Mechanical Ventilator 50 12/27/18 16:55 26 Mechanical Ventilator 50 12/27/18 16:50 25 Mechanical Ventilator 50 12/27/18 16:45 24 Mechanical Ventilator 50 12/27/18 16:30 104 24 153/87 (109) 98 12/27/18 16:00 98.6 85 24 154/89 (110) 100 12/27/18 16:00 24 Mechanical Ventilator 60 12/27/18 16:00 Mechanical Ventilator 12/27/18 16:00 122 12/27/18 16:00 60 12/27/18 15:50 99 24 40 12/27/18 15:30 91 24 157/89 (111) 100 12/27/18 15:00 77 24 140/78 (98) 98 12/27/18 15:00 24 Mechanical Ventilator 60 12/27/18 14:30 80 24 133/77 (95) 96 12/27/18 14:15 24 Mechanical Ventilator 60 12/27/18 14:10 24 Mechanical Ventilator 60 12/27/18 14:05 24 Mechanical Ventilator 60 12/27/18 14:00 24 Mechanical Ventilator 60 12/27/18 14:00 125 24 148/92 (110) 98 12/27/18 13:55 24 Mechanical Ventilator 60 12/27/18 13:50 24 Mechanical Ventilator 60 12/27/18 13:45 24 Mechanical Ventilator 45 12/27/18 13:40 25 Mechanical Ventilator 45 12/27/18 13:35 25 Mechanical Ventilator 45 12/27/18 13:30 81 24 134/78 (96) 99 12/27/18 13:30 25 Mechanical Ventilator 45 12/27/18 13:25 25 Mechanical Ventilator 40 12/27/18 13:20 25 Mechanical Ventilator 40 12/27/18 13:15 25 Mechanical Ventilator 40 12/27/18 13:10 25 Mechanical Ventilator 40 12/27/18 13:07 105 24 40 12/27/18 13:05 26 Mechanical Ventilator 40 12/27/18 13:00 93 24 154/79 (104) 99 12/27/18 13:00 24 Mechanical Ventilator 40 12/27/18 12:30 95 24 129/72 (91) 98 12/27/18 12:00 60 12/27/18 12:00 Mechanical Ventilator 12/27/18 12:00 24 Mechanical Ventilator 40 12/27/18 12:00 99.2 102 24 109/67 (81) 97 12/27/18 11:57 86 12/27/18 11:40 94 24 96 Mechanical Ventilator 12/27/18 11:30 99 24 111/84 (93) 95 12/27/18 11:15 98 24 40 12/27/18 11:00 24 Mechanical Ventilator 50 12/27/18 11:00 98 24 137/91 (106) 96 12/27/18 10:30 90 24 142/83 (102) 95 Height (Feet): 5 Height (Inches): 9.00 Weight (Pounds): 313 General Appearance: other - obese HEENT: other - orally intubated Respiratory/Chest: decreased breath sounds, other - on ventilator Cardiovascular: normal rate Abdomen: soft, non tender Extremities: other - hands edema Neurologic/Psychiatric: alert, responsive Microbiology Date/Time Source Procedure Growth Status 12/26/18 08:10 Sputum Induced Gram Stain - Final Resulted 12/26/18 08:10 Sputum Culture - Preliminary Staphylococcus Aureus Usual Respiratory Aniyah Resulted 12/26/18 09:14 Indwelling Cath Urine Culture - Preliminary Resulted Laboratory Tests Test 12/28/18 09:00 White Blood Count 19.0 K/UL (4.8-10.8) H Red Blood Count 3.93 M/UL (4.20-5.40) L Hemoglobin 12.2 G/DL (12.0-16.0) Hematocrit 38.2 % (37.0-47.0) Mean Corpuscular Volume 97 FL (80-99) Mean Corpuscular Hemoglobin 31.0 PG (27.0-31.0) Mean Corpuscular Hemoglobin Concent 31.9 G/DL (32.0-36.0) L Red Cell Distribution Width 14.8 % (11.6-14.8) Platelet Count 247 K/UL (150-450) Mean Platelet Volume 4.5 FL (6.5-10.1) L Neutrophils (%) (Auto) % (45.0-75.0) Lymphocytes (%) (Auto) % (20.0-45.0) Monocytes (%) (Auto) % (1.0-10.0) Eosinophils (%) (Auto) % (0.0-3.0) Basophils (%) (Auto) % (0.0-2.0) Differential Total Cells Counted 100 Neutrophils % (Manual) 77 % (45-75) H Lymphocytes % (Manual) 14 % (20-45) L Monocytes % (Manual) 9 % (1-10) Eosinophils % (Manual) 0 % (0-3) Basophils % (Manual) 0 % (0-2) Band Neutrophils 0 % (0-8) Nucleated Red Blood Cells 1 /100 WBC Platelet Estimate Adequate Platelet Morphology Normal Sodium Level 147 MMOL/L (136-145) H Potassium Level 4.5 MMOL/L (3.5-5.1) Chloride Level 110 MMOL/L (98-107) H Carbon Dioxide Level 26 MMOL/L (21-32) Anion Gap 11 mmol/L (5-15) Blood Urea Nitrogen 20 mg/dL (7-18) H Creatinine 1.0 MG/DL (0.55-1.30) Estimat Glomerular Filtration Rate > 60 mL/min (>60) Glucose Level 158 MG/DL (74-106) H Calcium Level 9.1 MG/DL (8.5-10.1) Phosphorus Level 3.8 MG/DL (2.5-4.9) Magnesium Level 2.7 MG/DL (1.8-2.4) H Total Bilirubin 0.4 MG/DL (0.2-1.0) Aspartate Amino Transf (AST/SGOT) 46 U/L (15-37) H Alanine Aminotransferase (ALT/SGPT) 88 U/L (12-78) H Alkaline Phosphatase 67 U/L (46-116) Total Protein 6.7 G/DL (6.4-8.2) Albumin 3.0 G/DL (3.4-5.0) L Globulin 3.7 g/dL Albumin/Globulin Ratio 0.8 (1.0-2.7) L Current Medications Medications (Trade) Dose Ordered Sig/Amaya Route PRN Reason Start Time Stop Time Status Last Admin Dose Admin Acetaminophen (Tylenol) 650 mg Q4HR PRN NG FOR TEMP >100.5 12/23/18 07:30 01/22/19 07:29 12/25/18 17:13 Acetylcysteine (Mucomyst) 200 mg Q4HRT HHN 12/24/18 23:00 01/23/19 12:59 12/28/18 07:05 Albuterol/ Ipratropium (Albuterol/ Ipratropium) 3 ml Q4HRT HHN 12/26/18 19:45 12/31/18 19:44 12/28/18 07:05 Amlodipine Besylate (Norvasc) 2.5 mg DAILY NG 12/26/18 14:15 01/25/19 14:14 12/28/18 08:16 Ceftriaxone Sodium 1 gm/ Dextrose 55 ml @ 110 mls/hr Q24H IVPB 12/21/18 18:00 12/28/18 17:59 12/27/18 18:17 Clonidine HCl (Catapres Tab) 0.1 mg Q6H PRN NG For High Blood Pressure 12/26/18 15:00 01/25/19 14:59 Dextrose (Dextrose 50%) 25 ml Q30M PRN IV Hypoglycemia 12/21/18 17:00 01/20/19 16:59 Dextrose (Dextrose 50%) 50 ml Q30M PRN IV Hypoglycemia 12/21/18 17:00 01/20/19 16:59 Doxycycline Monohydrate (Doxycycline Monohydrate) 100 mg EVERY 12 HOURS NG 12/27/18 13:30 01/03/19 13:29 12/28/18 08:15 Fentanyl Citrate 2500 mcg/Sodium Chloride 250 ml @ 0 mls/hr Q24H IV 12/24/18 23:31 12/31/18 23:30 12/28/18 08:16 Haloperidol Lactate (Haldol) 5 mg Q6H PRN IM Agitation 12/24/18 00:30 01/23/19 00:29 12/24/18 16:22 Insulin Aspart (NovoLOG) EVERY 6 HOURS SUBQ 12/21/18 18:00 01/20/19 17:59 12/28/18 05:42 Lorazepam (Ativan 2mg/ml 1ml) 1 mg Q2H PRN IV agitation / restlessness 12/22/18 12:15 12/28/18 16:14 12/28/18 05:41 Methylprednisolone Sodium Succinate (Solu-MEDROL) 40 mg EVERY 6 HOURS IVP 12/26/18 12:00 01/25/19 11:59 12/28/18 05:41 Pantoprazole (Protonix) 40 mg EVERY 12 HOURS IVP 12/22/18 11:00 01/21/19 10:59 12/28/18 08:17 Potassium Chloride (K-Dur) 20 meq TWICE A DAY NG 12/26/18 12:45 01/25/19 12:44 12/28/18 08:16 Quetiapine Fumarate (SEROquel) 25 mg Q6H PRN ORAL Agitation 12/22/18 12:30 01/20/19 12:29 12/26/18 20:34 Nikos Martinez MD Dec 28, 2018 10:27
--- NOTE | 2018-12-28 10:30 | NUR ---
NURSE NOTES: Dr. Martinez at bedside to assess the patient. Abnormal lab results reported to MD ZEFERINO updated on patient's condition.
--- NOTE | 2018-12-28 11:00 | NUR ---
NURSE NOTES: Patient was slightly restless, pulled herself up and tried to pull out ETT, increased fentanyl gtt, running at 120mcg/hr. currently at RASS -2. patient on bilateral soft wrist restraints. No skin breakdown, pulses present. VSS. Addendum: 12/28/18 at 1101 by KIRA PAULA RN correction: fentanyl currently at 140mcg/hr.
--- NOTE | 2018-12-28 11:54 | NUR ---
Social Service Note SW spoke with patient's son Sukhdeep Dowell [phone] regarding plan of care. Patient has been orally intubated since admission 12/21/18. Patient indicated feeling SOB during weaning this morning. SW discussed possible trach, extubation with O2 support, terminal extubation with hospice. Prior to admission patient primarily lived home alone and son would visit often. Son indicated that patient's apartment doesn't appear to have good ventilation. SW discuss SNF placement upon discharge if required. Son states he will visit patient tonight and discuss with nursing patient's progress. Patient is a full code. SW discussed with primary nurse SW discussion with son. Will continue to monitor and assist as needed.
--- NOTE | 2018-12-28 11:59 | NUR ---
NURSE NOTES: Patient seen by Dr. Boudreaux. Okay to stop K-dur per MD. Mg 2.7 notified.
[2018-12-28] MEDS: Miralax 17gm pkt NG PRN (12:09)
--- NOTE | 2018-12-28 12:25 | GI Progress Note ---
Assessment/Plan Problems: (1) Anemia ICD Codes: D64.9 - Anemia, unspecified SNOMED: 069358378 (2) Salicylate overdose ICD Codes: T39.091A - Poisoning by salicylates, accidental (unintentional), initial encounter SNOMED: 741884108, [id number] (3) Respiratory failure ICD Codes: J96.90 - Respiratory failure, unspecified, unspecified whether with hypoxia or hypercapnia SNOMED: 748277758 (4) Suicidal intent ICD Codes: R45.851 - Suicidal ideations SNOMED: 512556037 Status: unchanged Status Narrative Discussed with Dr. Saldana. Assessment/Plan No plans for GI procedures at this time Medical management for salicylate overdose TF on hold for possible extubation today Sodium bicarbonate Electrolyte correction anemia work up OB stool r/o GI bleed monitor H&H, prn transfusions bowel regimen ppi fu labs pulmonary support The patient was seen and examined at bedside and all new and available data was reviewed in the patients chart. I agree with the above findings, impression and plan. (Patient seen earlier today. Signature stamp does not reflect patient encounter time.). - Vladimir Saldana MD Subjective Subjective limited Objective Last 24 Hour Vital Signs Date Time Temp Pulse Resp B/P (MAP) Pulse Ox O2 Delivery O2 Flow Rate FiO2 12/28/18 12:00 Mechanical Ventilator 12/28/18 12:00 40 12/28/18 12:00 92 12/28/18 12:00 98.7 95 24 128/78 (95) 98 12/28/18 11:42 76 24 97 Mechanical Ventilator 40 78 24 40 12/28/18 11:40 24 Mechanical Ventilator 40 12/28/18 11:30 81 24 101/49 (66) 97 12/28/18 11:30 24 Mechanical Ventilator 40 12/28/18 11:20 24 Mechanical Ventilator 40 12/28/18 11:15 85 24 103/54 (70) 98 12/28/18 11:10 24 Mechanical Ventilator 40 12/28/18 11:00 86 24 126/78 (94) 98 12/28/18 11:00 24 Mechanical Ventilator 40 12/28/18 10:50 24 Mechanical Ventilator 40 12/28/18 10:45 102 24 118/68 (85) 98 12/28/18 10:40 24 Mechanical Ventilator 40 12/28/18 10:30 83 24 125/63 (83) 98 12/28/18 10:30 24 Mechanical Ventilator 40 12/28/18 10:20 24 Mechanical Ventilator 40 12/28/18 10:15 24 Mechanical Ventilator 40 12/28/18 10:15 85 24 121/67 (85) 97 12/28/18 10:00 24 Mechanical Ventilator 40 12/28/18 10:00 95 24 118/65 (82) 98 12/28/18 09:55 100 12/28/18 09:30 94 24 119/68 (85) 97 12/28/18 09:18 97 24 100 Mechanical Ventilator 40 82 24 40 12/28/18 09:15 24 Mechanical Ventilator 40 12/28/18 09:00 94 24 98/86 (90) 97 12/28/18 09:00 24 Mechanical Ventilator 40 12/28/18 08:30 84 24 121/71 (88) 99 12/28/18 08:16 102 129/79 12/28/18 08:16 24 Mechanical Ventilator 40 12/28/18 08:15 24 Mechanical Ventilator 40 12/28/18 08:00 98.8 90 24 111/58 (75) 100 12/28/18 08:00 24 Mechanical Ventilator 40 12/28/18 08:00 85 12/28/18 08:00 40 12/28/18 08:00 Mechanical Ventilator 12/28/18 07:30 85 24 119/65 (83) 96 12/28/18 07:05 82 24 100 Mechanical Ventilator 40 82 24 40 12/28/18 07:00 24 Mechanical Ventilator 40 12/28/18 07:00 109 22 129/75 (93) 97 12/28/18 06:30 90 23 134/84 (101) 98 12/28/18 06:00 24 Mechanical Ventilator 40 12/28/18 06:00 85 24 130/79 (96) 99 12/28/18 05:45 24 Mechanical Ventilator 40 12/28/18 05:30 122 22 126/82 (97) 98 12/28/18 05:16 89 24 40 12/28/18 05:00 102 23 111/64 (80) 98 12/28/18 04:45 24 Mechanical Ventilator 40 12/28/18 04:30 117 23 164/99 (120) 96 12/28/18 04:00 40 12/28/18 04:00 Mechanical Ventilator 12/28/18 04:00 98.0 117 24 196/92 (126) 97 12/28/18 04:00 103 12/28/18 03:45 24 Mechanical Ventilator 40 12/28/18 03:30 119 22 162/104 (123) 92 12/28/18 03:00 74 24 136/81 (99) 98 12/28/18 02:55 68 24 97 Mechanical Ventilator 40 68 24 40 12/28/18 02:45 24 Mechanical Ventilator 40 12/28/18 02:30 69 24 144/81 (102) 98 12/28/18 02:00 70 24 148/81 (103) 97 12/28/18 01:45 24 Mechanical Ventilator 40 12/28/18 01:30 71 24 143/91 (108) 96 12/28/18 01:16 73 24 40 12/28/18 01:00 70 24 136/80 (98) 95 12/28/18 00:45 21 Mechanical Ventilator 40 12/28/18 00:40 21 Mechanical Ventilator 40 12/28/18 00:35 24 Mechanical Ventilator 40 12/28/18 00:30 72 24 135/76 (95) 95 12/28/18 00:30 24 Mechanical Ventilator 40 12/28/18 00:25 24 Mechanical Ventilator 40 12/28/18 00:20 24 Mechanical Ventilator 40 12/28/18 00:15 24 Mechanical Ventilator 40 12/28/18 00:10 24 Mechanical Ventilator 40 12/28/18 00:05 24 Mechanical Ventilator 40 12/28/18 00:00 40 12/28/18 00:00 24 Mechanical Ventilator 40 12/28/18 00:00 68 12/28/18 00:00 98.2 70 24 132/79 (96) 97 12/28/18 00:00 Mechanical Ventilator 12/27/18 23:55 24 Mechanical Ventilator 40 12/27/18 23:50 24 Mechanical Ventilator 40 12/27/18 23:45 24 Mechanical Ventilator 40 12/27/18 23:40 24 Mechanical Ventilator 40 12/27/18 23:35 24 Mechanical Ventilator 40 12/27/18 23:30 82 23 169/88 (115) 97 12/27/18 23:30 24 Mechanical Ventilator 40 12/27/18 23:25 24 Mechanical Ventilator 40 12/27/18 23:20 24 Mechanical Ventilator 40 12/27/18 23:15 24 Mechanical Ventilator 40 12/27/18 23:14 68 24 98 Mechanical Ventilator 40 78 24 40 12/27/18 23:10 24 Mechanical Ventilator 40 12/27/18 23:05 24 Mechanical Ventilator 40 12/27/18 23:00 69 24 118/66 (83) 97 12/27/18 23:00 24 Mechanical Ventilator 40 12/27/18 22:30 64 24 135/75 (95) 96 12/27/18 22:00 24 Mechanical Ventilator 40 12/27/18 22:00 65 23 126/71 (89) 95 12/27/18 21:30 69 24 123/66 (85) 95 12/27/18 21:00 24 Mechanical Ventilator 40 12/27/18 21:00 73 24 128/63 (84) 96 12/27/18 20:48 75 24 40 12/27/18 20:30 73 24 139/72 (94) 98 12/27/18 20:00 Mechanical Ventilator 12/27/18 20:00 98.0 79 24 146/80 (102) 98 12/27/18 20:00 24 Mechanical Ventilator 40 12/27/18 20:00 40 12/27/18 20:00 78 12/27/18 19:30 78 24 149/89 (109) 99 12/27/18 19:29 76 24 98 Mechanical Ventilator 40 78 24 40 12/27/18 19:00 24 Mechanical Ventilator 40 12/27/18 19:00 81 24 133/74 (93) 96 12/27/18 18:30 71 24 129/74 (92) 98 12/27/18 18:16 24 Mechanical Ventilator 40 12/27/18 18:15 24 Mechanical Ventilator 40 12/27/18 18:00 71 24 124/68 (86) 95 12/27/18 18:00 24 Mechanical Ventilator 40 12/27/18 17:30 77 24 137/79 (98) 98 12/27/18 17:23 80 24 40 12/27/18 17:05 24 Mechanical Ventilator 50 12/27/18 17:00 91 24 152/82 (105) 99 12/27/18 17:00 25 Mechanical Ventilator 50 12/27/18 16:55 26 Mechanical Ventilator 50 12/27/18 16:50 25 Mechanical Ventilator 50 12/27/18 16:45 24 Mechanical Ventilator 50 12/27/18 16:30 104 24 153/87 (109) 98 12/27/18 16:00 98.6 85 24 154/89 (110) 100 12/27/18 16:00 24 Mechanical Ventilator 60 12/27/18 16:00 Mechanical Ventilator 12/27/18 16:00 122 12/27/18 16:00 60 12/27/18 15:50 99 24 40 12/27/18 15:30 91 24 157/89 (111) 100 12/27/18 15:00 77 24 140/78 (98) 98 12/27/18 15:00 24 Mechanical Ventilator 60 12/27/18 14:30 80 24 133/77 (95) 96 12/27/18 14:15 24 Mechanical Ventilator 60 12/27/18 14:10 24 Mechanical Ventilator 60 12/27/18 14:05 24 Mechanical Ventilator 60 12/27/18 14:00 24 Mechanical Ventilator 60 12/27/18 14:00 125 24 148/92 (110) 98 12/27/18 13:55 24 Mechanical Ventilator 60 12/27/18 13:50 24 Mechanical Ventilator 60 12/27/18 13:45 24 Mechanical Ventilator 45 12/27/18 13:40 25 Mechanical Ventilator 45 12/27/18 13:35 25 Mechanical Ventilator 45 12/27/18 13:30 81 24 134/78 (96) 99 12/27/18 13:30 25 Mechanical Ventilator 45 12/27/18 13:25 25 Mechanical Ventilator 40 12/27/18 13:20 25 Mechanical Ventilator 40 12/27/18 13:15 25 Mechanical Ventilator 40 12/27/18 13:10 25 Mechanical Ventilator 40 12/27/18 13:07 105 24 40 12/27/18 13:05 26 Mechanical Ventilator 40 12/27/18 13:00 93 24 154/79 (104) 99 12/27/18 13:00 24 Mechanical Ventilator 40 12/27/18 12:30 95 24 129/72 (91) 98 Intake and Output 12/27/18 12/28/18 19:00 07:00 Intake Total 699.46843 ml 896.7 ml Output Total 1025 ml 430 ml Balance -325.31803 ml 466.7 ml Free Water 100 ml 200 ml IV Total 259.21213 ml 216.7 ml Tube Feeding 300 ml 480 ml Other 40 ml Output Urine Total 1025 ml 430 ml Laboratory Tests Test 12/28/18 09:00 White Blood Count 19.0 K/UL (4.8-10.8) H Red Blood Count 3.93 M/UL (4.20-5.40) L Hemoglobin 12.2 G/DL (12.0-16.0) Hematocrit 38.2 % (37.0-47.0) Mean Corpuscular Volume 97 FL (80-99) Mean Corpuscular Hemoglobin 31.0 PG (27.0-31.0) Mean Corpuscular Hemoglobin Concent 31.9 G/DL (32.0-36.0) L Red Cell Distribution Width 14.8 % (11.6-14.8) Platelet Count 247 K/UL (150-450) Mean Platelet Volume 4.5 FL (6.5-10.1) L Neutrophils (%) (Auto) % (45.0-75.0) Lymphocytes (%) (Auto) % (20.0-45.0) Monocytes (%) (Auto) % (1.0-10.0) Eosinophils (%) (Auto) % (0.0-3.0) Basophils (%) (Auto) % (0.0-2.0) Differential Total Cells Counted 100 Neutrophils % (Manual) 77 % (45-75) H Lymphocytes % (Manual) 14 % (20-45) L Monocytes % (Manual) 9 % (1-10) Eosinophils % (Manual) 0 % (0-3) Basophils % (Manual) 0 % (0-2) Band Neutrophils 0 % (0-8) Nucleated Red Blood Cells 1 /100 WBC Platelet Estimate Adequate Platelet Morphology Normal Sodium Level 147 MMOL/L (136-145) H Potassium Level 4.5 MMOL/L (3.5-5.1) Chloride Level 110 MMOL/L (98-107) H Carbon Dioxide Level 26 MMOL/L (21-32) Anion Gap 11 mmol/L (5-15) Blood Urea Nitrogen 20 mg/dL (7-18) H Creatinine 1.0 MG/DL (0.55-1.30) Estimat Glomerular Filtration Rate > 60 mL/min (>60) Glucose Level 158 MG/DL (74-106) H Calcium Level 9.1 MG/DL (8.5-10.1) Phosphorus Level 3.8 MG/DL (2.5-4.9) Magnesium Level 2.7 MG/DL (1.8-2.4) H Total Bilirubin 0.4 MG/DL (0.2-1.0) Aspartate Amino Transf (AST/SGOT) 46 U/L (15-37) H Alanine Aminotransferase (ALT/SGPT) 88 U/L (12-78) H Alkaline Phosphatase 67 U/L (46-116) Total Protein 6.7 G/DL (6.4-8.2) Albumin 3.0 G/DL (3.4-5.0) L Globulin 3.7 g/dL Albumin/Globulin Ratio 0.8 (1.0-2.7) L Height (Feet): 5 Height (Inches): 9.00 Weight (Pounds): 313 General Appearance: no apparent distress, obese Cardiovascular: normal rate Respiratory/Chest: normal breath sounds, no respiratory distress Abdominal Exam: normal bowel sounds, non tender, soft Extremities: non-tender Marc Chaudhary NP Dec 28, 2018 12:25
--- NOTE | 2018-12-28 12:30 | NUR ---
NURSE NOTES: Bilateral soft wrist restraints removed. skin intact.
--- NOTE | 2018-12-28 13:08 | NUR ---
NURSE NOTES: Patient resting in bed comfortably. Fentanyl running at 200mcg/hr, RASS -2. No acute distress noted. Patient was turned and repositioned. Patient kept clean and dry. VSS. Jauregui cath draining yellow urine by gravity. Oral care and jauregui care provided. SR noted on the equipment monitor phototypesetting.
--- NOTE | 2018-12-28 14:45 | NUR ---
NURSE NOTES: Patient noted with BP 85/48. Fentanyl gtt was held. Patient resting in bed comfortably.
--- NOTE | 2018-12-28 15:29 | NUR ---
CASE MANAGEMENT: REVIEW 12/28/2018 SI:SEPSIS. PNA. T 98.7 HR 95 RR 24 B/P 128/78 SATS 98% ON MECH VENT FIO2 40 WBC 19 NA 147 CL 110 BUN 20 GLU 158 MG 2.7 AST 46 ALT 88 IS:INSULIN ASPART SUBQ Q6H PROTONIX IV Q12H K PHOS IV X1 FENTANYL IV Q24H CEFTRIAXONE IV Q24H SOLU MEDROL IV Q6H ICU
--- NOTE | 2018-12-28 15:29 | NUR ---
RADIOLOGY DEPT., CHEST X-RAY DONE BY EMANUEL BERNARD.MARTITA
--- NOTE | 2018-12-28 15:30 | NUR ---
NURSE NOTES: Patient noted with low BP, changed blood pressure cuff, BP 112/82. fentanyl drip still being held. patient resting in bed comfortably, patient alert and oriented, able to follow commands. No distress noted. will continue to monitor.
--- NOTE | 2018-12-28 15:31 | Nephrology Progress Note ---
Assessment/Plan Problem List: (1) Salicylate overdose (2) Psychosis (3) Anemia (4) Obesity (5) Hypokalemia (6) Rhabdomyolysis Assessment: high CPK Assessment HypoKalemia Mild Anemia s/p Acidosis resolved Respiratory failure Salicylate overdose Psychosis Asthma Obesity Plan Plan: hold Norvasc Fails weaning K , Mag , Phos supplement as needed no IV fluids weaning as possible taper steroids as possible IV Protonix Resp management per Dr hurt monitor renal parameters Urine studies Subjective ROS Limited/Unobtainable: Yes Objective Objective Last 24 Hour Vital Signs Date Time Temp Pulse Resp B/P (MAP) Pulse Ox O2 Delivery O2 Flow Rate FiO2 12/28/18 15:00 85 24 99/52 (68) 96 12/28/18 14:45 24 Mechanical Ventilator 40 12/28/18 14:45 98 24 85/48 (60) 100 12/28/18 14:42 105 24 100 Mechanical Ventilator 35 105 24 35 12/28/18 14:30 84 24 107/51 (69) 94 12/28/18 14:20 86 24 92/51 (65) 99 12/28/18 14:15 87 24 89/50 (63) 94 12/28/18 14:00 24 Mechanical Ventilator 40 12/28/18 14:00 91 24 94/49 (64) 94 12/28/18 13:30 107 24 97/49 (65) 94 12/28/18 13:08 87 24 Mechanical Ventilator 40 12/28/18 13:00 93 24 98/59 (72) 94 12/28/18 13:00 24 Mechanical Ventilator 40 12/28/18 12:45 96 24 110/54 (72) 95 12/28/18 12:30 89 24 103/59 (74) 95 12/28/18 12:30 24 Mechanical Ventilator 40 12/28/18 12:20 24 Mechanical Ventilator 40 12/28/18 12:15 85 24 111/67 (82) 95 12/28/18 12:10 24 Mechanical Ventilator 40 12/28/18 12:00 Mechanical Ventilator 12/28/18 12:00 40 12/28/18 12:00 92 12/28/18 12:00 24 Mechanical Ventilator 40 12/28/18 12:00 98.7 95 24 128/78 (95) 98 12/28/18 11:50 24 Mechanical Ventilator 40 12/28/18 11:42 76 24 97 Mechanical Ventilator 40 78 24 40 12/28/18 11:40 24 Mechanical Ventilator 40 12/28/18 11:30 81 24 101/49 (66) 97 12/28/18 11:30 24 Mechanical Ventilator 40 12/28/18 11:20 24 Mechanical Ventilator 40 12/28/18 11:15 85 24 103/54 (70) 98 12/28/18 11:10 24 Mechanical Ventilator 40 12/28/18 11:00 86 24 126/78 (94) 98 12/28/18 11:00 24 Mechanical Ventilator 40 12/28/18 10:50 24 Mechanical Ventilator 40 12/28/18 10:45 102 24 118/68 (85) 98 12/28/18 10:40 24 Mechanical Ventilator 40 12/28/18 10:30 83 24 125/63 (83) 98 12/28/18 10:30 24 Mechanical Ventilator 40 12/28/18 10:20 24 Mechanical Ventilator 40 12/28/18 10:15 24 Mechanical Ventilator 40 12/28/18 10:15 85 24 121/67 (85) 97 12/28/18 10:00 24 Mechanical Ventilator 40 12/28/18 10:00 95 24 118/65 (82) 98 12/28/18 09:55 100 12/28/18 09:30 94 24 119/68 (85) 97 12/28/18 09:18 97 24 100 Mechanical Ventilator 40 82 24 40 12/28/18 09:15 24 Mechanical Ventilator 40 12/28/18 09:00 94 24 98/86 (90) 97 12/28/18 09:00 24 Mechanical Ventilator 40 12/28/18 08:30 84 24 121/71 (88) 99 12/28/18 08:16 102 129/79 12/28/18 08:16 24 Mechanical Ventilator 40 12/28/18 08:15 24 Mechanical Ventilator 40 12/28/18 08:00 98.8 90 24 111/58 (75) 100 12/28/18 08:00 24 Mechanical Ventilator 40 12/28/18 08:00 85 12/28/18 08:00 40 12/28/18 08:00 Mechanical Ventilator 12/28/18 07:30 85 24 119/65 (83) 96 12/28/18 07:05 82 24 100 Mechanical Ventilator 40 82 24 40 12/28/18 07:00 24 Mechanical Ventilator 40 12/28/18 07:00 109 22 129/75 (93) 97 12/28/18 06:30 90 23 134/84 (101) 98 12/28/18 06:00 24 Mechanical Ventilator 40 12/28/18 06:00 85 24 130/79 (96) 99 12/28/18 05:45 24 Mechanical Ventilator 40 12/28/18 05:30 122 22 126/82 (97) 98 12/28/18 05:16 89 24 40 12/28/18 05:00 102 23 111/64 (80) 98 12/28/18 04:45 24 Mechanical Ventilator 40 12/28/18 04:30 117 23 164/99 (120) 96 12/28/18 04:00 40 12/28/18 04:00 Mechanical Ventilator 12/28/18 04:00 98.0 117 24 196/92 (126) 97 12/28/18 04:00 103 12/28/18 03:45 24 Mechanical Ventilator 40 12/28/18 03:30 119 22 162/104 (123) 92 12/28/18 03:00 74 24 136/81 (99) 98 12/28/18 02:55 68 24 97 Mechanical Ventilator 40 68 24 40 12/28/18 02:45 24 Mechanical Ventilator 40 12/28/18 02:30 69 24 144/81 (102) 98 12/28/18 02:00 70 24 148/81 (103) 97 12/28/18 01:45 24 Mechanical Ventilator 40 12/28/18 01:30 71 24 143/91 (108) 96 12/28/18 01:16 73 24 40 12/28/18 01:00 70 24 136/80 (98) 95 12/28/18 00:45 21 Mechanical Ventilator 40 12/28/18 00:40 21 Mechanical Ventilator 40 12/28/18 00:35 24 Mechanical Ventilator 40 12/28/18 00:30 72 24 135/76 (95) 95 12/28/18 00:30 24 Mechanical Ventilator 40 12/28/18 00:25 24 Mechanical Ventilator 40 12/28/18 00:20 24 Mechanical Ventilator 40 12/28/18 00:15 24 Mechanical Ventilator 40 12/28/18 00:10 24 Mechanical Ventilator 40 12/28/18 00:05 24 Mechanical Ventilator 40 12/28/18 00:00 40 8/27/19 00:00 24 Mechanical Ventilator 40 12/28/18 00:00 68 12/28/18 00:00 98.2 70 24 132/79 (96) 97 12/28/18 00:00 Mechanical Ventilator 12/27/18 23:55 24 Mechanical Ventilator 40 12/27/18 23:50 24 Mechanical Ventilator 40 12/27/18 23:45 24 Mechanical Ventilator 40 12/27/18 23:40 24 Mechanical Ventilator 40 12/27/18 23:35 24 Mechanical Ventilator 40 12/27/18 23:30 82 23 169/88 (115) 97 12/27/18 23:30 24 Mechanical Ventilator 40 12/27/18 23:25 24 Mechanical Ventilator 40 12/27/18 23:20 24 Mechanical Ventilator 40 12/27/18 23:15 24 Mechanical Ventilator 40 12/27/18 23:14 68 24 98 Mechanical Ventilator 40 78 24 40 12/27/18 23:10 24 Mechanical Ventilator 40 12/27/18 23:05 24 Mechanical Ventilator 40 12/27/18 23:00 69 24 118/66 (83) 97 12/27/18 23:00 24 Mechanical Ventilator 40 12/27/18 22:30 64 24 135/75 (95) 96 12/27/18 22:00 24 Mechanical Ventilator 40 12/27/18 22:00 65 23 126/71 (89) 95 12/27/18 21:30 69 24 123/66 (85) 95 12/27/18 21:00 24 Mechanical Ventilator 40 12/27/18 21:00 73 24 128/63 (84) 96 12/27/18 20:48 75 24 40 12/27/18 20:30 73 24 139/72 (94) 98 12/27/18 20:00 Mechanical Ventilator 12/27/18 20:00 98.0 79 24 146/80 (102) 98 12/27/18 20:00 24 Mechanical Ventilator 40 12/27/18 20:00 40 12/27/18 20:00 78 12/27/18 19:30 78 24 149/89 (109) 99 12/27/18 19:29 76 24 98 Mechanical Ventilator 40 78 24 40 12/27/18 19:00 24 Mechanical Ventilator 40 12/27/18 19:00 81 24 133/74 (93) 96 12/27/18 18:30 71 24 129/74 (92) 98 12/27/18 18:16 24 Mechanical Ventilator 40 12/27/18 18:15 24 Mechanical Ventilator 40 12/27/18 18:00 71 24 124/68 (86) 95 12/27/18 18:00 24 Mechanical Ventilator 40 12/27/18 17:30 77 24 137/79 (98) 98 12/27/18 17:23 80 24 40 12/27/18 17:05 24 Mechanical Ventilator 50 12/27/18 17:00 91 24 152/82 (105) 99 12/27/18 17:00 25 Mechanical Ventilator 50 12/27/18 16:55 26 Mechanical Ventilator 50 12/27/18 16:50 25 Mechanical Ventilator 50 12/27/18 16:45 24 Mechanical Ventilator 50 12/27/18 16:30 104 24 153/87 (109) 98 12/27/18 16:00 98.6 85 24 154/89 (110) 100 12/27/18 16:00 24 Mechanical Ventilator 60 12/27/18 16:00 Mechanical Ventilator 12/27/18 16:00 122 12/27/18 16:00 60 12/27/18 15:50 99 24 40 12/27/18 15:30 91 24 157/89 (111) 100 Intake and Output 12/27/18 12/28/18 19:00 07:00 Intake Total 699.77699 ml 896.7 ml Output Total 1025 ml 430 ml Balance -325.53140 ml 466.7 ml Free Water 100 ml 200 ml IV Total 259.44817 ml 216.7 ml Tube Feeding 300 ml 480 ml Other 40 ml Output Urine Total 1025 ml 430 ml Laboratory Tests 12/28/18 09:00: White Blood Count 19.0H, Red Blood Count 3.93L, Hemoglobin 12.2, Hematocrit 38.2 , Mean Corpuscular Volume 97, Mean Corpuscular Hemoglobin 31.0, Mean Corpuscular Hemoglobin Concent 31.9L, Red Cell Distribution Width 14.8, Platelet Count 247, Mean Platelet Volume 4.5L, Neutrophils (%) (Auto) , Lymphocytes (%) (Auto) , Monocytes (%) (Auto) , Eosinophils (%) (Auto) , Basophils (%) (Auto) , Differential Total Cells Counted 100, Neutrophils % ( Manual) 77H, Lymphocytes % (Manual) 14L, Monocytes % (Manual) 9, Eosinophils % ( Manual) 0, Basophils % (Manual) 0, Band Neutrophils 0, Nucleated Red Blood Cells 1, Platelet Estimate Adequate, Platelet Morphology Normal, Sodium Level 147H, Potassium Level 4.5, Chloride Level 110H, Carbon Dioxide Level 26, Anion Gap 11, Blood Urea Nitrogen 20H, Creatinine 1.0, Estimat Glomerular Filtration Rate > 60, Glucose Level 158H, Calcium Level 9.1, Phosphorus Level 3.8, Magnesium Level 2.7H, Total Bilirubin 0.4, Aspartate Amino Transf (AST/SGOT) 46H , Alanine Aminotransferase (ALT/SGPT) 88H, Alkaline Phosphatase 67, Total Protein 6.7, Albumin 3.0L, Globulin 3.7, Albumin/Globulin Ratio 0.8L Height (Feet): 5 Height (Inches): 9.00 Weight (Pounds): 313 General Appearance: no apparent distress EENT: other - vented Respiratory/Chest: decreased breath sounds Abdomen: distended Jerzy Boudreaux MD Dec 28, 2018 15:31
--- NOTE | 2018-12-28 16:20 | Diagnostic Imaging Report ---
Indication: Shortness of breath Technique: One view of the chest Comparison: 12/25/2018 Findings: The heart is enlarged. There are bilateral perihilar atelectatic changes which may be slightly increased from the prior exam. Stable satisfactory positions of endotracheal and nasogastric tubes. Impression: Cardiomegaly Slightly increased bilateral perihilar atelectasis. Otherwise little groover and turner 3 days
--- NOTE | 2018-12-28 16:56 | Progress Note ---
DATE: 12/27/2018 SUBJECTIVE: The patient is still in the ICU. Mental condition is unchanged since previous encounter. She was anxious. The patient stated that this was a suicide attempt. Her response time was lagging. MENTAL STATUS EXAMINATION: The patient is asleep, arousable. Mood is anxious. Affect is constricted, congruent with mood. Thought process is concrete. Thought content, no suicidal or homicidal ideation. ASSESSMENT: Schizophrenia, acute encephalopathy. PLAN: We will continue current care and treatment. Laurie Canchola M.D. DR: KIRBY JOB#: [id number] CC:
--- NOTE | 2018-12-28 17:00 | NUR ---
NURSE NOTES: Patient was turned and repositioned. Patient kept clean and dry. No BM yet.
--- NOTE | 2018-12-28 17:51 | NUR ---
NURSE NOTES: Patient was very agitated and combative, pull up herself and moved across the bed, attempted to pull out ETT. Ativan prn given. patient resting in bed with eyes closed, no acute distress noted. Fentanyl gtt titrated to maintain RASS of -2.
--- NOTE | 2018-12-28 18:40 | NUR ---
NURSE NOTES: Patient resting in bed comfortably. No acute distress noted. Fentanyl currently running at 200mcg/hr. VSS. 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
--- NOTE | 2018-12-28 18:56 | NUR ---
RESPIRATORY NOTE: Received pt on AC 24, 550VT, 35%, PEEP +6. Pt intubated w/ ETT 7.0 @ 22cm lipline, secured by anchorfast. Pt alert/awake at this time, follows commands, occasionally sedated. B/S sherry. rhonchi/diminished, sxn small amounts of thick, hubbard-yellow secretions. No hand restraints at this time. Family present at bedside. Vent plugged into red outlet, ambubag at bedside. Pt in no apparent distress at this time. Will continue to monitor pt.
--- NOTE | 2018-12-28 19:00 | NUR ---
NURSE NOTES: Patient's son at bedside. updated on patient's condition and discussed possible trach, all questions answered.
--- NOTE | 2018-12-28 19:07 | NUR ---
HAND-OFF: Report given to CLARENCE Perry.
--- NOTE | 2018-12-28 19:22 | Pulmonolgy Critical Care Note ---
Critical Care - Asmt/Plan Assessment/Plan: Pulmonary CCM Progress Note HPI Patient is a 58-year-old woman with apparent history of Obstructive Airways Disease, Schizophrenia, Obesity, presented with shortness of breath, increased anxiety. Per ER notes history limited by mental status, being a poor historian. Patient noted to be extremely short of breath requiring intubation in the ED. On mechainical ventilation in the ICU Noted to have elevated ASA level on admission FIO2 reduced , AB per ID Physical Exam Vital Signs Noted General Appearance: normal inspection, mildly sedated on the ventilator Head: NCAT ENT: Moist mm, ETT, OGT, JVP not visible Neck: normal inspection, full range of motion, supple, no bony tend Respiratory: normal inspection, no respiratory distress, no retraction, mild wheezing, reduced basal BS Cardiovascular: regular rate, rhythm, Normal HS1, HS2 Gastrointestinal: normal inspection, normal bowel sounds, non tender, soft, no guarding, no hernia Genitourinary: no CVA tenderness Musculoskeletal: normal inspection, moderate edema Neurologic: no focal signs noted, follows commands Impression: Respiratory failure - Hypercapneic and Hypoxic Elevated Salicylate level Pneumonia Possible Congestive Heart Failure Salicylate overdose Schizophrenia/Psychosis Asthma Obesity Plan: ACV Vt 550 Adjust FIO2/PEEP sats 90-94%, wean as tolerated IV Antibiotics per ID IV Solumedrol reduced HHN [employer] med PRN Sedation BLE dupplex PPX Keep negative balance OGT feeding Labs Noted CXR: ETT appropriate, basal infiltrates, vascular congestion Critical Care - Objective Last 24 Hour Vital Signs Date Time Temp Pulse Resp B/P (MAP) Pulse Ox O2 Delivery O2 Flow Rate FiO2 12/28/18 19:00 97 25 127/63 (84) 97 12/28/18 19:00 24 Mechanical Ventilator 35 12/28/18 18:52 80 24 95 Mechanical Ventilator 35 80 24 35 12/28/18 18:45 80 24 107/60 (76) 95 12/28/18 18:30 81 24 104/64 (77) 96 12/28/18 18:30 24 Mechanical Ventilator 35 12/28/18 18:20 24 Mechanical Ventilator 35 12/28/18 18:15 86 24 113/57 (75) 97 12/28/18 18:10 24 Mechanical Ventilator 35 12/28/18 18:05 24 Mechanical Ventilator 35 12/28/18 18:00 24 Mechanical Ventilator 35 12/28/18 18:00 86 24 119/76 (90) 96 12/28/18 17:55 24 Mechanical Ventilator 35 12/28/18 17:50 24 Mechanical Ventilator 35 12/28/18 17:45 24 Mechanical Ventilator 35 12/28/18 17:45 89 24 116/66 (83) 97 12/28/18 17:40 24 Mechanical Ventilator 35 12/28/18 17:35 24 Mechanical Ventilator 35 12/28/18 17:30 104 24 131/75 (93) 97 12/28/18 17:30 24 Mechanical Ventilator 35 12/28/18 17:25 24 Mechanical Ventilator 35 12/28/18 17:20 24 Mechanical Ventilator 35 12/28/18 17:15 105 24 133/105 (114) 97 12/28/18 17:15 24 Mechanical Ventilator 35 12/28/18 17:10 24 Mechanical Ventilator 35 12/28/18 17:09 108 24 Mechanical Ventilator 35 12/28/18 17:05 24 Mechanical Ventilator 35 12/28/18 17:00 102 24 114/66 (82) 97 12/28/18 17:00 24 Mechanical Ventilator 35 12/28/18 16:55 24 Mechanical Ventilator 35 12/28/18 16:50 24 Mechanical Ventilator 35 12/28/18 16:45 24 Mechanical Ventilator 35 12/28/18 16:45 108 24 113/62 (79) 96 12/28/18 16:40 24 Mechanical Ventilator 35 12/28/18 16:35 24 Mechanical Ventilator 35 12/28/18 16:30 24 Mechanical Ventilator 35 12/28/18 16:30 99 24 131/74 (93) 96 12/28/18 16:25 24 Mechanical Ventilator 35 12/28/18 16:20 24 Mechanical Ventilator 35 12/28/18 16:15 24 Mechanical Ventilator 35 12/28/18 16:10 24 Mechanical Ventilator 35 12/28/18 16:00 98 12/28/18 16:00 40 12/28/18 16:00 99.0 103 24 127/61 (83) 95 12/28/18 16:00 Mechanical Ventilator 12/28/18 15:45 107 24 149/85 (106) 96 12/28/18 15:30 101 24 112/82 (92) 98 12/28/18 15:00 85 24 99/52 (68) 96 12/28/18 14:45 24 Mechanical Ventilator 40 12/28/18 14:45 98 24 85/48 (60) 100 12/28/18 14:42 105 24 100 Mechanical Ventilator 35 105 24 35 12/28/18 14:30 84 24 107/51 (69) 94 12/28/18 14:20 86 24 92/51 (65) 99 12/28/18 14:15 87 24 89/50 (63) 94 12/28/18 14:00 24 Mechanical Ventilator 40 12/28/18 14:00 91 24 94/49 (64) 94 12/28/18 13:30 107 24 97/49 (65) 94 12/28/18 13:08 87 24 Mechanical Ventilator 40 12/28/18 13:00 93 24 98/59 (72) 94 12/28/18 13:00 24 Mechanical Ventilator 40 12/28/18 12:45 96 24 110/54 (72) 95 12/28/18 12:30 89 24 103/59 (74) 95 12/28/18 12:30 24 Mechanical Ventilator 40 12/28/18 12:20 24 Mechanical Ventilator 40 12/28/18 12:15 85 24 111/67 (82) 95 12/28/18 12:10 24 Mechanical Ventilator 40 12/28/18 12:00 Mechanical Ventilator 12/28/18 12:00 40 12/28/18 12:00 92 12/28/18 12:00 24 Mechanical Ventilator 40 12/28/18 12:00 98.7 95 24 128/78 (95) 98 12/28/18 11:50 24 Mechanical Ventilator 40 12/28/18 11:42 76 24 97 Mechanical Ventilator 40 78 24 40 12/28/18 11:40 24 Mechanical Ventilator 40 12/28/18 11:30 81 24 101/49 (66) 97 12/28/18 11:30 24 Mechanical Ventilator 40 12/28/18 11:20 24 Mechanical Ventilator 40 12/28/18 11:15 85 24 103/54 (70) 98 12/28/18 11:10 24 Mechanical Ventilator 40 12/28/18 11:00 86 24 126/78 (94) 98 12/28/18 11:00 24 Mechanical Ventilator 40 12/28/18 10:50 24 Mechanical Ventilator 40 12/28/18 10:45 102 24 118/68 (85) 98 12/28/18 10:40 24 Mechanical Ventilator 40 12/28/18 10:30 83 24 125/63 (83) 98 12/28/18 10:30 24 Mechanical Ventilator 40 12/28/18 10:20 24 Mechanical Ventilator 40 12/28/18 10:15 24 Mechanical Ventilator 40 12/28/18 10:15 85 24 121/67 (85) 97 12/28/18 10:00 24 Mechanical Ventilator 40 12/28/18 10:00 95 24 118/65 (82) 98 12/28/18 09:55 100 12/28/18 09:30 94 24 119/68 (85) 97 12/28/18 09:18 97 24 40 12/28/18 09:15 24 Mechanical Ventilator 40 12/28/18 09:00 94 24 98/86 (90) 97 12/28/18 09:00 24 Mechanical Ventilator 40 12/28/18 08:30 84 24 121/71 (88) 99 12/28/18 08:16 102 129/79 12/28/18 08:16 24 Mechanical Ventilator 40 12/28/18 08:15 24 Mechanical Ventilator 40 12/28/18 08:00 98.8 90 24 111/58 (75) 100 12/28/18 08:00 24 Mechanical Ventilator 40 12/28/18 08:00 85 12/28/18 08:00 40 12/28/18 08:00 Mechanical Ventilator 12/28/18 07:30 85 24 119/65 (83) 96 12/28/18 07:05 82 24 100 Mechanical Ventilator 40 82 24 40 12/28/18 07:00 24 Mechanical Ventilator 40 12/28/18 07:00 109 22 129/75 (93) 97 12/28/18 06:30 90 23 134/84 (101) 98 12/28/18 06:00 24 Mechanical Ventilator 40 12/28/18 06:00 85 24 130/79 (96) 99 12/28/18 05:45 24 Mechanical Ventilator 40 12/28/18 05:30 122 22 126/82 (97) 98 12/28/18 05:16 89 24 40 12/28/18 05:00 102 23 111/64 (80) 98 12/28/18 04:45 24 Mechanical Ventilator 40 12/28/18 04:30 117 23 164/99 (120) 96 12/28/18 04:00 40 12/28/18 04:00 Mechanical Ventilator 12/28/18 04:00 98.0 117 24 196/92 (126) 97 12/28/18 04:00 103 12/28/18 03:45 24 Mechanical Ventilator 40 12/28/18 03:30 119 22 162/104 (123) 92 12/28/18 03:00 74 24 136/81 (99) 98 12/28/18 02:55 68 24 97 Mechanical Ventilator 40 68 24 40 12/28/18 02:45 24 Mechanical Ventilator 40 12/28/18 02:30 69 24 144/81 (102) 98 12/28/18 02:00 70 24 148/81 (103) 97 12/28/18 01:45 24 Mechanical Ventilator 40 12/28/18 01:30 71 24 143/91 (108) 96 12/28/18 01:16 73 24 40 12/28/18 01:00 70 24 136/80 (98) 95 12/28/18 00:45 21 Mechanical Ventilator 40 12/28/18 00:40 21 Mechanical Ventilator 40 12/28/18 00:35 24 Mechanical Ventilator 40 12/28/18 00:30 72 24 135/76 (95) 95 12/28/18 00:30 24 Mechanical Ventilator 40 12/28/18 00:25 24 Mechanical Ventilator 40 12/28/18 00:20 24 Mechanical Ventilator 40 12/28/18 00:15 24 Mechanical Ventilator 40 12/28/18 00:10 24 Mechanical Ventilator 40 12/28/18 00:05 24 Mechanical Ventilator 40 12/28/18 00:00 40 12/28/18 00:00 24 Mechanical Ventilator 40 12/28/18 00:00 68 12/28/18 00:00 98.2 70 24 132/79 (96) 97 12/28/18 00:00 Mechanical Ventilator 12/27/18 23:55 24 Mechanical Ventilator 40 12/27/18 23:50 24 Mechanical Ventilator 40 12/27/18 23:45 24 Mechanical Ventilator 40 12/27/18 23:40 24 Mechanical Ventilator 40 12/27/18 23:35 24 Mechanical Ventilator 40 12/27/18 23:30 82 23 169/88 (115) 97 12/27/18 23:30 24 Mechanical Ventilator 40 12/27/18 23:25 24 Mechanical Ventilator 40 12/27/18 23:20 24 Mechanical Ventilator 40 12/27/18 23:15 24 Mechanical Ventilator 40 12/27/18 23:14 68 24 98 Mechanical Ventilator 40 78 24 40 12/27/18 23:10 24 Mechanical Ventilator 40 12/27/18 23:05 24 Mechanical Ventilator 40 12/27/18 23:00 69 24 118/66 (83) 97 12/27/18 23:00 24 Mechanical Ventilator 40 12/27/18 22:30 64 24 135/75 (95) 96 12/27/18 22:00 24 Mechanical Ventilator 40 12/27/18 22:00 65 23 126/71 (89) 95 12/27/18 21:30 69 24 123/66 (85) 95 12/27/18 21:00 24 Mechanical Ventilator 40 12/27/18 21:00 73 24 128/63 (84) 96 12/27/18 20:48 75 24 40 12/27/18 20:30 73 24 139/72 (94) 98 12/27/18 20:00 Mechanical Ventilator 12/27/18 20:00 98.0 79 24 146/80 (102) 98 12/27/18 20:00 24 Mechanical Ventilator 40 12/27/18 20:00 40 12/27/18 20:00 78 12/27/18 19:30 78 24 149/89 (109) 99 12/27/18 19:29 76 24 98 Mechanical Ventilator 40 78 24 40 Micro: Microbiology Date/Time Source Procedure Growth Status 12/26/18 08:10 Sputum Induced Gram Stain - Final Resulted 12/26/18 08:10 Sputum Culture - Preliminary Staphylococcus Aureus Usual Respiratory Candice Resulted 12/26/18 09:14 Indwelling Cath Urine Culture - Preliminary Resulted Accucheck: 169 Critical Care - Subjective ROS Limited/Unobtainable: No FI02: 35 Vent Support Breath Rate: 24 Vent Support Mode: AC Vent Tidal Volume: 550 Sputum Amount: Small PEEP: 6.0 PIP: 30 Tube Feeding Amount: 40 I&O: Intake and Output 12/27/18 12/28/18 19:00 07:00 Intake Total 699.76719 ml 896.7 ml Output Total 1025 ml 430 ml Balance -325.05004 ml 466.7 ml Free Water 100 ml 200 ml IV Total 259.30653 ml 216.7 ml Tube Feeding 300 ml 480 ml Other 40 ml Output Urine Total 1025 ml 430 ml ET-Tube: 7.0 ET Position: 22 Kevan Monsalve MD Dec 28, 2018 19:22
--- NOTE | 2018-12-28 19:30 | NUR ---
NURSE NOTES: Recvd.on a Vent.orally intubated.See settings.Failed weaning today,will try again in am.Suctioned Tk.beige sec.NS Lavaged.Cont.P.Ox.Observed for S/Sx of Any Resp.Distress.Lethargic but able to follows simple command.OFF Restraints.Maintain on Fentanyl drip.Closely monitored for Poss.self-injury.See V/S.Scope SR.OGT Feeding in progress.F/Cath.Patent See I/O.
--- NOTE | 2018-12-28 20:28 | General Progress Note ---
Assessment/Plan Problem List: (1) Opioid dependence ICD Codes: F11.20 - Opioid dependence, uncomplicated SNOMED: 67608379 (2) Altered level of consciousness ICD Codes: R40.4 - Transient alteration of awareness SNOMED: 7246574 (3) Back pain ICD Codes: M54.9 - Dorsalgia, unspecified SNOMED: 509602629 (4) Opiate dependence ICD Codes: F11.20 - Opioid dependence, uncomplicated SNOMED: 80293443 (5) Depression ICD Codes: F32.9 - Major depressive disorder, single episode, unspecified SNOMED: 03600765 (6) Peripheral edema ICD Codes: R60.9 - Edema, unspecified SNOMED: 148711906 (7) Leg pain ICD Codes: M79.606 - Pain in leg, unspecified SNOMED: 80840719 (8) Headache ICD Codes: R51 - Headache SNOMED: 97361550 (9) COPD exacerbation ICD Codes: J44.1 - Chronic obstructive pulmonary disease with (acute) exacerbation SNOMED: 703075166 (10) Psychosis ICD Codes: F29 - Unsp psychosis not due to a substance or known physiol cond SNOMED: 44140694 (11) Respiratory failure ICD Codes: J96.90 - Respiratory failure, unspecified, unspecified whether with hypoxia or hypercapnia SNOMED: 094812027 (12) Salicylate overdose ICD Codes: T39.091A - Poisoning by salicylates, accidental (unintentional), initial encounter SNOMED: 076097541, 9657497 (13) Asthma ICD Codes: J45.909 - Unspecified asthma, uncomplicated SNOMED: 715698509, 6525867 (14) Anemia ICD Codes: D64.9 - Anemia, unspecified SNOMED: 805945247 Status: progressing, unchanged Assessment/Plan: afebrile asthma anemia resp failure lytes good reviewed chart and labs no h/h Subjective ROS Limited/Unobtainable: Yes Allergies: Coded Allergies: No Known Allergies (Unverified , 11/07/13) Objective Last 24 Hour Vital Signs Date Time Temp Pulse Resp B/P (MAP) Pulse Ox O2 Delivery O2 Flow Rate FiO2 12/28/18 20:00 99.3 84 24 92/41 (58) 97 12/28/18 19:30 100 24 96/41 (59) 96 12/28/18 19:00 97 25 127/63 (84) 97 12/28/18 19:00 24 Mechanical Ventilator 35 12/28/18 18:52 80 24 95 Mechanical Ventilator 35 80 24 35 12/28/18 18:45 80 24 107/60 (76) 95 12/28/18 18:30 81 24 104/64 (77) 96 12/28/18 18:30 24 Mechanical Ventilator 35 12/28/18 18:20 24 Mechanical Ventilator 35 12/28/18 18:15 86 24 113/57 (75) 97 12/28/18 18:10 24 Mechanical Ventilator 35 12/28/18 18:05 24 Mechanical Ventilator 35 12/28/18 18:00 24 Mechanical Ventilator 35 12/28/18 18:00 86 24 119/76 (90) 96 12/28/18 17:55 24 Mechanical Ventilator 35 12/28/18 17:50 24 Mechanical Ventilator 35 12/28/18 17:45 24 Mechanical Ventilator 35 12/28/18 17:45 89 24 116/66 (83) 97 12/28/18 17:40 24 Mechanical Ventilator 35 12/28/18 17:35 24 Mechanical Ventilator 35 12/28/18 17:30 104 24 131/75 (93) 97 12/28/18 17:30 24 Mechanical Ventilator 35 12/28/18 17:25 24 Mechanical Ventilator 35 12/28/18 17:20 24 Mechanical Ventilator 35 12/28/18 17:15 105 24 133/105 (114) 97 12/28/18 17:15 24 Mechanical Ventilator 35 12/28/18 17:10 24 Mechanical Ventilator 35 12/28/18 17:09 108 24 Mechanical Ventilator 35 12/28/18 17:05 24 Mechanical Ventilator 35 12/28/18 17:00 102 24 114/66 (82) 97 12/28/18 17:00 24 Mechanical Ventilator 35 12/28/18 16:55 24 Mechanical Ventilator 35 12/28/18 16:50 24 Mechanical Ventilator 35 12/28/18 16:45 24 Mechanical Ventilator 35 12/28/18 16:45 108 24 113/62 (79) 96 12/28/18 16:40 24 Mechanical Ventilator 35 12/28/18 16:35 24 Mechanical Ventilator 35 12/28/18 16:30 24 Mechanical Ventilator 35 12/28/18 16:30 99 24 131/74 (93) 96 12/28/18 16:25 24 Mechanical Ventilator 35 12/28/18 16:20 24 Mechanical Ventilator 35 12/28/18 16:15 24 Mechanical Ventilator 35 12/28/18 16:10 24 Mechanical Ventilator 35 12/28/18 16:00 98 12/28/18 16:00 40 12/28/18 16:00 99.0 103 24 127/61 (83) 95 12/28/18 16:00 Mechanical Ventilator 12/28/18 15:45 107 24 149/85 (106) 96 12/28/18 15:30 101 24 112/82 (92) 98 12/28/18 15:00 85 24 99/52 (68) 96 12/28/18 14:45 24 Mechanical Ventilator 40 12/28/18 14:45 98 24 85/48 (60) 100 12/28/18 14:42 105 24 100 Mechanical Ventilator 35 105 24 35 12/28/18 14:30 84 24 107/51 (69) 94 12/28/18 14:20 86 24 92/51 (65) 99 12/28/18 14:15 87 24 89/50 (63) 94 12/28/18 14:00 24 Mechanical Ventilator 40 12/28/18 14:00 91 24 94/49 (64) 94 12/28/18 13:30 107 24 97/49 (65) 94 12/28/18 13:08 87 24 Mechanical Ventilator 40 12/28/18 13:00 93 24 98/59 (72) 94 12/28/18 13:00 24 Mechanical Ventilator 40 12/28/18 12:45 96 24 110/54 (72) 95 12/28/18 12:30 89 24 103/59 (74) 95 12/28/18 12:30 24 Mechanical Ventilator 40 12/28/18 12:20 24 Mechanical Ventilator 40 12/28/18 12:15 85 24 111/67 (82) 95 12/28/18 12:10 24 Mechanical Ventilator 40 12/28/18 12:00 Mechanical Ventilator 12/28/18 12:00 40 12/28/18 12:00 92 12/28/18 12:00 24 Mechanical Ventilator 40 12/28/18 12:00 98.7 95 24 128/78 (95) 98 12/28/18 11:50 24 Mechanical Ventilator 40 12/28/18 11:42 76 24 97 Mechanical Ventilator 40 78 24 40 12/28/18 11:40 24 Mechanical Ventilator 40 12/28/18 11:30 81 24 101/49 (66) 97 12/28/18 11:30 24 Mechanical Ventilator 40 12/28/18 11:20 24 Mechanical Ventilator 40 12/28/18 11:15 85 24 103/54 (70) 98 12/28/18 11:10 24 Mechanical Ventilator 40 12/28/18 11:00 86 24 126/78 (94) 98 12/28/18 11:00 24 Mechanical Ventilator 40 12/28/18 10:50 24 Mechanical Ventilator 40 12/28/18 10:45 102 24 118/68 (85) 98 12/28/18 10:40 24 Mechanical Ventilator 40 12/28/18 10:30 83 24 125/63 (83) 98 12/28/18 10:30 24 Mechanical Ventilator 40 12/28/18 10:20 24 Mechanical Ventilator 40 12/28/18 10:15 24 Mechanical Ventilator 40 12/28/18 10:15 85 24 121/67 (85) 97 12/28/18 10:00 24 Mechanical Ventilator 40 12/28/18 10:00 95 24 118/65 (82) 98 12/28/18 09:55 100 12/28/18 09:30 94 24 119/68 (85) 97 12/28/18 09:18 97 24 40 12/28/18 09:15 24 Mechanical Ventilator 40 12/28/18 09:00 94 24 98/86 (90) 97 12/28/18 09:00 24 Mechanical Ventilator 40 12/28/18 08:30 84 24 121/71 (88) 99 12/28/18 08:16 102 129/79 12/28/18 08:16 24 Mechanical Ventilator 40 12/28/18 08:15 24 Mechanical Ventilator 40 12/28/18 08:00 98.8 90 24 111/58 (75) 100 12/28/18 08:00 24 Mechanical Ventilator 40 12/28/18 08:00 85 12/28/18 08:00 40 12/28/18 08:00 Mechanical Ventilator 12/28/18 07:30 85 24 119/65 (83) 96 12/28/18 07:05 82 24 100 Mechanical Ventilator 40 82 24 40 12/28/18 07:00 24 Mechanical Ventilator 40 12/28/18 07:00 109 22 129/75 (93) 97 12/28/18 06:30 90 23 134/84 (101) 98 12/28/18 06:00 24 Mechanical Ventilator 40 12/28/18 06:00 85 24 130/79 (96) 99 12/28/18 05:45 24 Mechanical Ventilator 40 12/28/18 05:30 122 22 126/82 (97) 98 12/28/18 05:16 89 24 40 12/28/18 05:00 102 23 111/64 (80) 98 12/28/18 04:45 24 Mechanical Ventilator 40 12/28/18 04:30 117 23 164/99 (120) 96 12/28/18 04:00 40 12/28/18 04:00 Mechanical Ventilator 12/28/18 04:00 98.0 117 24 196/92 (126) 97 12/28/18 04:00 103 12/28/18 03:45 24 Mechanical Ventilator 40 12/28/18 03:30 119 22 162/104 (123) 92 12/28/18 03:00 74 24 136/81 (99) 98 12/28/18 02:55 68 24 97 Mechanical Ventilator 40 68 24 40 12/28/18 02:45 24 Mechanical Ventilator 40 12/28/18 02:30 69 24 144/81 (102) 98 12/28/18 02:00 70 24 148/81 (103) 97 12/28/18 01:45 24 Mechanical Ventilator 40 12/28/18 01:30 71 24 143/91 (108) 96 12/28/18 01:16 73 24 40 12/28/18 01:00 70 24 136/80 (98) 95 12/28/18 00:45 21 Mechanical Ventilator 40 12/28/18 00:40 21 Mechanical Ventilator 40 12/28/18 00:35 24 Mechanical Ventilator 40 12/28/18 00:30 72 24 135/76 (95) 95 12/28/18 00:30 24 Mechanical Ventilator 40 12/28/18 00:25 24 Mechanical Ventilator 40 12/28/18 00:20 24 Mechanical Ventilator 40 12/28/18 00:15 24 Mechanical Ventilator 40 12/28/18 00:10 24 Mechanical Ventilator 40 12/28/18 00:05 24 Mechanical Ventilator 40 12/28/18 00:00 40 12/28/18 00:00 24 Mechanical Ventilator 40 12/28/18 00:00 68 12/28/18 00:00 98.2 70 24 132/79 (96) 97 12/28/18 00:00 Mechanical Ventilator 12/27/18 23:55 24 Mechanical Ventilator 40 12/27/18 23:50 24 Mechanical Ventilator 40 12/27/18 23:45 24 Mechanical Ventilator 40 12/27/18 23:40 24 Mechanical Ventilator 40 12/27/18 23:35 24 Mechanical Ventilator 40 12/27/18 23:30 82 23 169/88 (115) 97 12/27/18 23:30 24 Mechanical Ventilator 40 12/27/18 23:25 24 Mechanical Ventilator 40 12/27/18 23:20 24 Mechanical Ventilator 40 12/27/18 23:15 24 Mechanical Ventilator 40 12/27/18 23:14 68 24 98 Mechanical Ventilator 40 78 24 40 12/27/18 23:10 24 Mechanical Ventilator 40 12/27/18 23:05 24 Mechanical Ventilator 40 12/27/18 23:00 69 24 118/66 (83) 97 12/27/18 23:00 24 Mechanical Ventilator 40 12/27/18 22:30 64 24 135/75 (95) 96 12/27/18 22:00 24 Mechanical Ventilator 40 12/27/18 22:00 65 23 126/71 (89) 95 12/27/18 21:30 69 24 123/66 (85) 95 12/27/18 21:00 24 Mechanical Ventilator 40 12/27/18 21:00 73 24 128/63 (84) 96 12/27/18 20:48 75 24 40 12/27/18 20:30 73 24 139/72 (94) 98 Intake and Output 12/27/18 12/28/18 19:00 07:00 Intake Total 699.67900 ml 896.7 ml Output Total 1025 ml 430 ml Balance -325.05857 ml 466.7 ml Free Water 100 ml 200 ml IV Total 259.03633 ml 216.7 ml Tube Feeding 300 ml 480 ml Other 40 ml Output Urine Total 1025 ml 430 ml Laboratory Tests 12/28/18 09:00: White Blood Count 19.0H, Red Blood Count 3.93L, Hemoglobin 12.2, Hematocrit 38.2 , Mean Corpuscular Volume 97, Mean Corpuscular Hemoglobin 31.0, Mean Corpuscular Hemoglobin Concent 31.9L, Red Cell Distribution Width 14.8, Platelet Count 247, Mean Platelet Volume 4.5L, Neutrophils (%) (Auto) , Lymphocytes (%) (Auto) , Monocytes (%) (Auto) , Eosinophils (%) (Auto) , Basophils (%) (Auto) , Differential Total Cells Counted 100, Neutrophils % ( Manual) 77H, Lymphocytes % (Manual) 14L, Monocytes % (Manual) 9, Eosinophils % ( Manual) 0, Basophils % (Manual) 0, Band Neutrophils 0, Nucleated Red Blood Cells 1, Platelet Estimate Adequate, Platelet Morphology Normal, Sodium Level 147H, Potassium Level 4.5, Chloride Level 110H, Carbon Dioxide Level 26, Anion Gap 11, Blood Urea Nitrogen 20H, Creatinine 1.0, Estimat Glomerular Filtration Rate > 60, Glucose Level 158H, Calcium Level 9.1, Phosphorus Level 3.8, Magnesium Level 2.7H, Total Bilirubin 0.4, Aspartate Amino Transf (AST/SGOT) 46H , Alanine Aminotransferase (ALT/SGPT) 88H, Alkaline Phosphatase 67, Total Protein 6.7, Albumin 3.0L, Globulin 3.7, Albumin/Globulin Ratio 0.8L Height (Feet): 5 Height (Inches): 9.00 Weight (Pounds): 313 General Appearance: lethargic Cardiovascular: normal rate Respiratory/Chest: lungs clear Jasmine Joe MD Dec 28, 2018 20:28
[2018-12-28] MEDS: Docusate 100mg tablet NG SCH (20:33)
--- NOTE | 2018-12-28 21:40 | NUR ---
RESPIRATORY NOTE: Vent settings changed per MD Gricel. Pt now on AC 24, 550VT, 50%, PEEP +5. Pt tolerating well, in no apparent distress. Will continue to monitor pt.
--- NOTE | 2018-12-28 22:00 | Progress Note ---
DATE: 12/28/2018 SUBJECTIVE: The patient is still in the ICU. She was hypotensive and tachycardic. The patient is fortunately alert and responding very well to verbal stimuli. It appears that the patient is disoriented and not a reliable historian. The patient still is receiving medication for agitation. ASSESSMENT: 1. Status post overdose. 2. Acute encephalopathy. 3. Schizophrenia. PLAN: 1. We will continue the Haldol p.r.n. 2. Seroquel p.r.n. 3. Although the patient is intubated, I discussed with the patient's nurse administering Haldol. 4. We will continue to follow and adjust the medication. Laurie Canchola M.D. DR: KIRBY JOB#: [id number] CC:
--- NOTE | 2018-12-28 22:00 | NUR ---
NURSE NOTES: HS care prov.Repositioned to comfort.Due meds admin.See new orders fr..Suctioned.
--- NOTE | 2018-12-28 22:04 | Cardiology Progress Note ---
Assessment/Plan Assessment/Plan 1. Sinus tachycardia, resolved, most likely due to hypoxemia, there is no need for AV carissa agents. 2. Acute respiratory failure due to right lung whiteout, s/p intubation and resolution. 3. History of chronic obstructive pulmonary disease. 4. History of salicylate overdose. 5. Morbid obesity. 6. Hyperthyroidism 7. Dyslipidemia Subjective Subjective Sinus rhythm at rate of 78. Intubated at FiO2 of 40%. Objective Last 24 Hour Vital Signs Date Time Temp Pulse Resp B/P (MAP) Pulse Ox O2 Delivery O2 Flow Rate FiO2 12/28/18 21:30 76 24 109/70 (83) 99 12/28/18 21:00 24 Mechanical Ventilator 35 12/28/18 21:00 79 24 108/58 (75) 98 12/28/18 20:50 103 24 35 12/28/18 20:30 77 24 100/50 (67) 96 12/28/18 20:00 Mechanical Ventilator 12/28/18 20:00 99.3 84 24 92/41 (58) 97 12/28/18 20:00 24 Mechanical Ventilator 35 12/28/18 20:00 84 12/28/18 20:00 35 12/28/18 19:30 100 24 96/41 (59) 96 12/28/18 19:00 97 25 127/63 (84) 97 12/28/18 19:00 24 Mechanical Ventilator 35 12/28/18 18:52 80 24 95 Mechanical Ventilator 35 80 24 35 12/28/18 18:45 80 24 107/60 (76) 95 12/28/18 18:30 81 24 104/64 (77) 96 12/28/18 18:30 24 Mechanical Ventilator 35 12/28/18 18:20 24 Mechanical Ventilator 35 12/28/18 18:15 86 24 113/57 (75) 97 12/28/18 18:10 24 Mechanical Ventilator 35 12/28/18 18:05 24 Mechanical Ventilator 35 12/28/18 18:00 24 Mechanical Ventilator 35 12/28/18 18:00 86 24 119/76 (90) 96 12/28/18 17:55 24 Mechanical Ventilator 35 12/28/18 17:50 24 Mechanical Ventilator 35 12/28/18 17:45 24 Mechanical Ventilator 35 12/28/18 17:45 89 24 116/66 (83) 97 12/28/18 17:40 24 Mechanical Ventilator 35 12/28/18 17:35 24 Mechanical Ventilator 35 12/28/18 17:30 104 24 131/75 (93) 97 12/28/18 17:30 24 Mechanical Ventilator 35 12/28/18 17:25 24 Mechanical Ventilator 35 12/28/18 17:20 24 Mechanical Ventilator 35 12/28/18 17:15 105 24 133/105 (114) 97 12/28/18 17:15 24 Mechanical Ventilator 35 12/28/18 17:10 24 Mechanical Ventilator 35 12/28/18 17:09 108 24 Mechanical Ventilator 35 12/28/18 17:05 24 Mechanical Ventilator 35 12/28/18 17:00 102 24 114/66 (82) 97 12/28/18 17:00 24 Mechanical Ventilator 35 12/28/18 16:55 24 Mechanical Ventilator 35 12/28/18 16:50 24 Mechanical Ventilator 35 12/28/18 16:45 24 Mechanical Ventilator 35 12/28/18 16:45 108 24 113/62 (79) 96 12/28/18 16:40 24 Mechanical Ventilator 35 12/28/18 16:35 24 Mechanical Ventilator 35 12/28/18 16:30 24 Mechanical Ventilator 35 12/28/18 16:30 99 24 131/74 (93) 96 12/28/18 16:25 24 Mechanical Ventilator 35 12/28/18 16:20 24 Mechanical Ventilator 35 12/28/18 16:15 24 Mechanical Ventilator 35 12/28/18 16:10 24 Mechanical Ventilator 35 12/28/18 16:00 98 12/28/18 16:00 40 12/28/18 16:00 99.0 103 24 127/61 (83) 95 12/28/18 16:00 Mechanical Ventilator 12/28/18 15:45 107 24 149/85 (106) 96 12/28/18 15:30 101 24 112/82 (92) 98 12/28/18 15:00 85 24 99/52 (68) 96 12/28/18 14:45 24 Mechanical Ventilator 40 12/28/18 14:45 98 24 85/48 (60) 100 12/28/18 14:42 105 24 100 Mechanical Ventilator 35 105 24 35 12/28/18 14:30 84 24 107/51 (69) 94 12/28/18 14:20 86 24 92/51 (65) 99 12/28/18 14:15 87 24 89/50 (63) 94 12/28/18 14:00 24 Mechanical Ventilator 40 12/28/18 14:00 91 24 94/49 (64) 94 12/28/18 13:30 107 24 97/49 (65) 94 12/28/18 13:08 87 24 Mechanical Ventilator 40 12/28/18 13:00 93 24 98/59 (72) 94 12/28/18 13:00 24 Mechanical Ventilator 40 12/28/18 12:45 96 24 110/54 (72) 95 12/28/18 12:30 89 24 103/59 (74) 95 12/28/18 12:30 24 Mechanical Ventilator 40 12/28/18 12:20 24 Mechanical Ventilator 40 12/28/18 12:15 85 24 111/67 (82) 95 12/28/18 12:10 24 Mechanical Ventilator 40 12/28/18 12:00 Mechanical Ventilator 12/28/18 12:00 40 12/28/18 12:00 92 12/28/18 12:00 24 Mechanical Ventilator 40 12/28/18 12:00 98.7 95 24 128/78 (95) 98 12/28/18 11:50 24 Mechanical Ventilator 40 12/28/18 11:42 76 24 97 Mechanical Ventilator 40 78 24 40 12/28/18 11:40 24 Mechanical Ventilator 40 12/28/18 11:30 81 24 101/49 (66) 97 12/28/18 11:30 24 Mechanical Ventilator 40 12/28/18 11:20 24 Mechanical Ventilator 40 12/28/18 11:15 85 24 103/54 (70) 98 12/28/18 11:10 24 Mechanical Ventilator 40 12/28/18 11:00 86 24 126/78 (94) 98 12/28/18 11:00 24 Mechanical Ventilator 40 12/28/18 10:50 24 Mechanical Ventilator 40 12/28/18 10:45 102 24 118/68 (85) 98 12/28/18 10:40 24 Mechanical Ventilator 40 12/28/18 10:30 83 24 125/63 (83) 98 12/28/18 10:30 24 Mechanical Ventilator 40 12/28/18 10:20 24 Mechanical Ventilator 40 12/28/18 10:15 24 Mechanical Ventilator 40 12/28/18 10:15 85 24 121/67 (85) 97 12/28/18 10:00 24 Mechanical Ventilator 40 12/28/18 10:00 95 24 118/65 (82) 98 12/28/18 09:55 100 12/28/18 09:30 94 24 119/68 (85) 97 12/28/18 09:18 97 24 40 12/28/18 09:15 24 Mechanical Ventilator 40 12/28/18 09:00 94 24 98/86 (90) 97 12/28/18 09:00 24 Mechanical Ventilator 40 12/28/18 08:30 84 24 121/71 (88) 99 12/28/18 08:16 102 129/79 12/28/18 08:16 24 Mechanical Ventilator 40 12/28/18 08:15 24 Mechanical Ventilator 40 12/28/18 08:00 98.8 90 24 111/58 (75) 100 12/28/18 08:00 24 Mechanical Ventilator 40 12/28/18 08:00 85 12/28/18 08:00 40 12/28/18 08:00 Mechanical Ventilator 12/28/18 07:30 85 24 119/65 (83) 96 12/28/18 07:05 82 24 100 Mechanical Ventilator 40 82 24 40 12/28/18 07:00 24 Mechanical Ventilator 40 12/28/18 07:00 109 22 129/75 (93) 97 12/28/18 06:30 90 23 134/84 (101) 98 12/28/18 06:00 24 Mechanical Ventilator 40 12/28/18 06:00 85 24 130/79 (96) 99 12/28/18 05:45 24 Mechanical Ventilator 40 12/28/18 05:30 122 22 126/82 (97) 98 12/28/18 05:16 89 24 40 12/28/18 05:00 102 23 111/64 (80) 98 12/28/18 04:45 24 Mechanical Ventilator 40 12/28/18 04:30 117 23 164/99 (120) 96 12/28/18 04:00 40 12/28/18 04:00 Mechanical Ventilator 12/28/18 04:00 98.0 117 24 196/92 (126) 97 12/28/18 04:00 103 12/28/18 03:45 24 Mechanical Ventilator 40 12/28/18 03:30 119 22 162/104 (123) 92 12/28/18 03:00 74 24 136/81 (99) 98 12/28/18 02:55 68 24 97 Mechanical Ventilator 40 68 24 40 12/28/18 02:45 24 Mechanical Ventilator 40 12/28/18 02:30 69 24 144/81 (102) 98 12/28/18 02:00 70 24 148/81 (103) 97 12/28/18 01:45 24 Mechanical Ventilator 40 12/28/18 01:30 71 24 143/91 (108) 96 12/28/18 01:16 73 24 40 12/28/18 01:00 70 24 136/80 (98) 95 12/28/18 00:45 21 Mechanical Ventilator 40 12/28/18 00:40 21 Mechanical Ventilator 40 12/28/18 00:35 24 Mechanical Ventilator 40 12/28/18 00:30 72 24 135/76 (95) 95 12/28/18 00:30 24 Mechanical Ventilator 40 12/28/18 00:25 24 Mechanical Ventilator 40 12/28/18 00:20 24 Mechanical Ventilator 40 12/28/18 00:15 24 Mechanical Ventilator 40 12/28/18 00:10 24 Mechanical Ventilator 40 12/28/18 00:05 24 Mechanical Ventilator 40 12/28/18 00:00 40 12/28/18 00:00 24 Mechanical Ventilator 40 12/28/18 00:00 68 12/28/18 00:00 98.2 70 24 132/79 (96) 97 12/28/18 00:00 Mechanical Ventilator 12/27/18 23:55 24 Mechanical Ventilator 40 12/27/18 23:50 24 Mechanical Ventilator 40 12/27/18 23:45 24 Mechanical Ventilator 40 12/27/18 23:40 24 Mechanical Ventilator 40 12/27/18 23:35 24 Mechanical Ventilator 40 12/27/18 23:30 82 23 169/88 (115) 97 12/27/18 23:30 24 Mechanical Ventilator 40 12/27/18 23:25 24 Mechanical Ventilator 40 12/27/18 23:20 24 Mechanical Ventilator 40 12/27/18 23:15 24 Mechanical Ventilator 40 12/27/18 23:14 68 24 98 Mechanical Ventilator 40 78 24 40 12/27/18 23:10 24 Mechanical Ventilator 40 12/27/18 23:05 24 Mechanical Ventilator 40 12/27/18 23:00 69 24 118/66 (83) 97 12/27/18 23:00 24 Mechanical Ventilator 40 12/27/18 22:30 64 24 135/75 (95) 96 Intake and Output 12/27/18 12/28/18 19:00 07:00 Intake Total 699.24665 ml 896.7 ml Output Total 1025 ml 430 ml Balance -325.06541 ml 466.7 ml Free Water 100 ml 200 ml IV Total 259.24598 ml 216.7 ml Tube Feeding 300 ml 480 ml Other 40 ml Output Urine Total 1025 ml 430 ml Laboratory Tests Test 12/28/18 09:00 White Blood Count 19.0 K/UL (4.8-10.8) H Red Blood Count 3.93 M/UL (4.20-5.40) L Hemoglobin 12.2 G/DL (12.0-16.0) Hematocrit 38.2 % (37.0-47.0) Mean Corpuscular Volume 97 FL (80-99) Mean Corpuscular Hemoglobin 31.0 PG (27.0-31.0) Mean Corpuscular Hemoglobin Concent 31.9 G/DL (32.0-36.0) L Red Cell Distribution Width 14.8 % (11.6-14.8) Platelet Count 247 K/UL (150-450) Mean Platelet Volume 4.5 FL (6.5-10.1) L Neutrophils (%) (Auto) % (45.0-75.0) Lymphocytes (%) (Auto) % (20.0-45.0) Monocytes (%) (Auto) % (1.0-10.0) Eosinophils (%) (Auto) % (0.0-3.0) Basophils (%) (Auto) % (0.0-2.0) Differential Total Cells Counted 100 Neutrophils % (Manual) 77 % (45-75) H Lymphocytes % (Manual) 14 % (20-45) L Monocytes % (Manual) 9 % (1-10) Eosinophils % (Manual) 0 % (0-3) Basophils % (Manual) 0 % (0-2) Band Neutrophils 0 % (0-8) Nucleated Red Blood Cells 1 /100 WBC Platelet Estimate Adequate Platelet Morphology Normal Sodium Level 147 MMOL/L (136-145) H Potassium Level 4.5 MMOL/L (3.5-5.1) Chloride Level 110 MMOL/L (98-107) H Carbon Dioxide Level 26 MMOL/L (21-32) Anion Gap 11 mmol/L (5-15) Blood Urea Nitrogen 20 mg/dL (7-18) H Creatinine 1.0 MG/DL (0.55-1.30) Estimat Glomerular Filtration Rate > 60 mL/min (>60) Glucose Level 158 MG/DL (74-106) H Calcium Level 9.1 MG/DL (8.5-10.1) Phosphorus Level 3.8 MG/DL (2.5-4.9) Magnesium Level 2.7 MG/DL (1.8-2.4) H Total Bilirubin 0.4 MG/DL (0.2-1.0) Aspartate Amino Transf (AST/SGOT) 46 U/L (15-37) H Alanine Aminotransferase (ALT/SGPT) 88 U/L (12-78) H Alkaline Phosphatase 67 U/L (46-116) Total Protein 6.7 G/DL (6.4-8.2) Albumin 3.0 G/DL (3.4-5.0) L Globulin 3.7 g/dL Albumin/Globulin Ratio 0.8 (1.0-2.7) L Microbiology Date/Time Source Procedure Growth Status 12/26/18 08:10 Sputum Induced Gram Stain - Final Resulted 12/26/18 08:10 Sputum Culture - Preliminary Staphylococcus Aureus Usual Respiratory Candice Resulted 12/26/18 09:14 Indwelling Cath Urine Culture - Preliminary Resulted Objective HEENT: Atraumatic and normocephalic. Anicteric. Pupils are equal, round, and reactive to light and accommodation, intubated. NECK: JVP cannot be assessed. No carotid bruit. CARDIOVASCULAR: Normal S1, S2. Regular rate and rhythm. No murmurs, gallops, or rubs. PMI is at fourth intercostal space in the midclavicular line. LUNGS: Diminished breath sounds in both lungs. ABDOMEN: Soft, obese. No hepatosplenomegaly. Positive bowel sounds. EXTREMITIES: No evidence of edema, clubbing, or cyanosis. Velasquez Staton MD Dec 28, 2018 22:04
--- NOTE | 2018-12-28 23:40 | Cardiology Progress Note ---
Assessment/Plan Assessment/Plan 1. Sinus tachycardia, resolved, most likely due to hypoxemia, there is no need for AV carissa agents. 2. Acute respiratory failure due to right lung whiteout, s/p intubation. 3. History of chronic obstructive pulmonary disease. 4. History of salicylate overdose. 5. Morbid obesity. 6. Hyperthyroidism 7. Dyslipidemia Subjective Subjective Sinus rhythm at rate of 81. Intubated at FiO2 of 50%. Objective Last 24 Hour Vital Signs Date Time Temp Pulse Resp B/P (MAP) Pulse Ox O2 Delivery O2 Flow Rate FiO2 12/28/18 23:00 24 Mechanical Ventilator 50 12/28/18 23:00 81 24 103/46 (65) 97 12/28/18 22:33 86 24 97 Mechanical Ventilator 50 86 24 50 12/28/18 22:30 72 24 137/81 (99) 96 12/28/18 22:00 76 24 99/54 (69) 98 12/28/18 22:00 24 Mechanical Ventilator 50 12/28/18 21:40 50 12/28/18 21:30 76 24 109/70 (83) 99 12/28/18 21:00 24 Mechanical Ventilator 35 12/28/18 21:00 79 24 108/58 (75) 98 12/28/18 20:50 103 24 35 12/28/18 20:30 77 24 100/50 (67) 96 12/28/18 20:00 Mechanical Ventilator 12/28/18 20:00 99.3 84 24 92/41 (58) 97 12/28/18 20:00 24 Mechanical Ventilator 35 12/28/18 20:00 84 12/28/18 20:00 35 12/28/18 19:30 100 24 96/41 (59) 96 12/28/18 19:00 97 25 127/63 (84) 97 12/28/18 19:00 24 Mechanical Ventilator 35 12/28/18 18:52 80 24 95 Mechanical Ventilator 35 80 24 35 12/28/18 18:45 80 24 107/60 (76) 95 12/28/18 18:30 81 24 104/64 (77) 96 12/28/18 18:30 24 Mechanical Ventilator 35 12/28/18 18:20 24 Mechanical Ventilator 35 12/28/18 18:15 86 24 113/57 (75) 97 12/28/18 18:10 24 Mechanical Ventilator 35 12/28/18 18:05 24 Mechanical Ventilator 35 12/28/18 18:00 24 Mechanical Ventilator 35 12/28/18 18:00 86 24 119/76 (90) 96 12/28/18 17:55 24 Mechanical Ventilator 35 12/28/18 17:50 24 Mechanical Ventilator 35 12/28/18 17:45 24 Mechanical Ventilator 35 12/28/18 17:45 89 24 116/66 (83) 97 12/28/18 17:40 24 Mechanical Ventilator 35 12/28/18 17:35 24 Mechanical Ventilator 35 12/28/18 17:30 104 24 131/75 (93) 97 12/28/18 17:30 24 Mechanical Ventilator 35 12/28/18 17:25 24 Mechanical Ventilator 35 12/28/18 17:20 24 Mechanical Ventilator 35 12/28/18 17:15 105 24 133/105 (114) 97 12/28/18 17:15 24 Mechanical Ventilator 35 12/28/18 17:10 24 Mechanical Ventilator 35 12/28/18 17:09 108 24 Mechanical Ventilator 35 12/28/18 17:05 24 Mechanical Ventilator 35 12/28/18 17:00 102 24 114/66 (82) 97 12/28/18 17:00 24 Mechanical Ventilator 35 12/28/18 16:55 24 Mechanical Ventilator 35 12/28/18 16:50 24 Mechanical Ventilator 35 12/28/18 16:45 24 Mechanical Ventilator 35 12/28/18 16:45 108 24 113/62 (79) 96 12/28/18 16:40 24 Mechanical Ventilator 35 12/28/18 16:35 24 Mechanical Ventilator 35 12/28/18 16:30 24 Mechanical Ventilator 35 12/28/18 16:30 99 24 131/74 (93) 96 12/28/18 16:25 24 Mechanical Ventilator 35 12/28/18 16:20 24 Mechanical Ventilator 35 12/28/18 16:15 24 Mechanical Ventilator 35 12/28/18 16:10 24 Mechanical Ventilator 35 12/28/18 16:00 98 12/28/18 16:00 40 12/28/18 16:00 99.0 103 24 127/61 (83) 95 12/28/18 16:00 Mechanical Ventilator 12/28/18 15:45 107 24 149/85 (106) 96 12/28/18 15:30 101 24 112/82 (92) 98 12/28/18 15:00 85 24 99/52 (68) 96 12/28/18 14:45 24 Mechanical Ventilator 40 12/28/18 14:45 98 24 85/48 (60) 100 12/28/18 14:42 105 24 100 Mechanical Ventilator 35 105 24 35 12/28/18 14:30 84 24 107/51 (69) 94 12/28/18 14:20 86 24 92/51 (65) 99 12/28/18 14:15 87 24 89/50 (63) 94 12/28/18 14:00 24 Mechanical Ventilator 40 12/28/18 14:00 91 24 94/49 (64) 94 12/28/18 13:30 107 24 97/49 (65) 94 12/28/18 13:08 87 24 Mechanical Ventilator 40 12/28/18 13:00 93 24 98/59 (72) 94 12/28/18 13:00 24 Mechanical Ventilator 40 12/28/18 12:45 96 24 110/54 (72) 95 12/28/18 12:30 89 24 103/59 (74) 95 12/28/18 12:30 24 Mechanical Ventilator 40 12/28/18 12:20 24 Mechanical Ventilator 40 12/28/18 12:15 85 24 111/67 (82) 95 12/28/18 12:10 24 Mechanical Ventilator 40 12/28/18 12:00 Mechanical Ventilator 12/28/18 12:00 40 12/28/18 12:00 92 12/28/18 12:00 24 Mechanical Ventilator 40 12/28/18 12:00 98.7 95 24 128/78 (95) 98 12/28/18 11:50 24 Mechanical Ventilator 40 12/28/18 11:42 76 24 97 Mechanical Ventilator 40 78 24 40 12/28/18 11:40 24 Mechanical Ventilator 40 12/28/18 11:30 81 24 101/49 (66) 97 12/28/18 11:30 24 Mechanical Ventilator 40 12/28/18 11:20 24 Mechanical Ventilator 40 12/28/18 11:15 85 24 103/54 (70) 98 12/28/18 11:10 24 Mechanical Ventilator 40 12/28/18 11:00 86 24 126/78 (94) 98 12/28/18 11:00 24 Mechanical Ventilator 40 12/28/18 10:50 24 Mechanical Ventilator 40 12/28/18 10:45 102 24 118/68 (85) 98 12/28/18 10:40 24 Mechanical Ventilator 40 12/28/18 10:30 83 24 125/63 (83) 98 12/28/18 10:30 24 Mechanical Ventilator 40 12/28/18 10:20 24 Mechanical Ventilator 40 12/28/18 10:15 24 Mechanical Ventilator 40 12/28/18 10:15 85 24 121/67 (85) 97 12/28/18 10:00 24 Mechanical Ventilator 40 12/28/18 10:00 95 24 118/65 (82) 98 12/28/18 09:55 100 12/28/18 09:30 94 24 119/68 (85) 97 12/28/18 09:18 97 24 40 12/28/18 09:15 24 Mechanical Ventilator 40 12/28/18 09:00 94 24 98/86 (90) 97 12/28/18 09:00 24 Mechanical Ventilator 40 12/28/18 08:30 84 24 121/71 (88) 99 12/28/18 08:16 102 129/79 12/28/18 08:16 24 Mechanical Ventilator 40 12/28/18 08:15 24 Mechanical Ventilator 40 12/28/18 08:00 98.8 90 24 111/58 (75) 100 12/28/18 08:00 24 Mechanical Ventilator 40 12/28/18 08:00 85 12/28/18 08:00 40 12/28/18 08:00 Mechanical Ventilator 12/28/18 07:30 85 24 119/65 (83) 96 12/28/18 07:05 82 24 100 Mechanical Ventilator 40 82 24 40 12/28/18 07:00 24 Mechanical Ventilator 40 12/28/18 07:00 109 22 129/75 (93) 97 12/28/18 06:30 90 23 134/84 (101) 98 12/28/18 06:00 24 Mechanical Ventilator 40 12/28/18 06:00 85 24 130/79 (96) 99 12/28/18 05:45 24 Mechanical Ventilator 40 12/28/18 05:30 122 22 126/82 (97) 98 12/28/18 05:16 89 24 40 12/28/18 05:00 102 23 111/64 (80) 98 12/28/18 04:45 24 Mechanical Ventilator 40 12/28/18 04:30 117 23 164/99 (120) 96 12/28/18 04:00 40 12/28/18 04:00 Mechanical Ventilator 12/28/18 04:00 98.0 117 24 196/92 (126) 97 12/28/18 04:00 103 12/28/18 03:45 24 Mechanical Ventilator 40 12/28/18 03:30 119 22 162/104 (123) 92 12/28/18 03:00 74 24 136/81 (99) 98 12/28/18 02:55 68 24 97 Mechanical Ventilator 40 68 24 40 12/28/18 02:45 24 Mechanical Ventilator 40 12/28/18 02:30 69 24 144/81 (102) 98 12/28/18 02:00 70 24 148/81 (103) 97 12/28/18 01:45 24 Mechanical Ventilator 40 12/28/18 01:30 71 24 143/91 (108) 96 12/28/18 01:16 73 24 40 12/28/18 01:00 70 24 136/80 (98) 95 12/28/18 00:45 21 Mechanical Ventilator 40 12/28/18 00:40 21 Mechanical Ventilator 40 12/28/18 00:35 24 Mechanical Ventilator 40 12/28/18 00:30 72 24 135/76 (95) 95 12/28/18 00:30 24 Mechanical Ventilator 40 12/28/18 00:25 24 Mechanical Ventilator 40 12/28/18 00:20 24 Mechanical Ventilator 40 12/28/18 00:15 24 Mechanical Ventilator 40 12/28/18 00:10 24 Mechanical Ventilator 40 12/28/18 00:05 24 Mechanical Ventilator 40 12/28/18 00:00 40 12/28/18 00:00 24 Mechanical Ventilator 40 12/28/18 00:00 68 12/28/18 00:00 98.2 70 24 132/79 (96) 97 12/28/18 00:00 Mechanical Ventilator 12/27/18 23:55 24 Mechanical Ventilator 40 12/27/18 23:50 24 Mechanical Ventilator 40 12/27/18 23:45 24 Mechanical Ventilator 40 12/27/18 23:40 24 Mechanical Ventilator 40 Intake and Output 12/27/18 12/28/18 18:59 06:59 Intake Total 601.20966 ml 964.2 ml Output Total 1040 ml 425 ml Balance -438.75397 ml 539.2 ml Free Water 100 ml 200 ml IV Total 201.96659 ml 284.2 ml Tube Feeding 260 ml 480 ml Other 40 ml Output Urine Total 1040 ml 425 ml Laboratory Tests Test 12/28/18 09:00 White Blood Count 19.0 K/UL (4.8-10.8) H Red Blood Count 3.93 M/UL (4.20-5.40) L Hemoglobin 12.2 G/DL (12.0-16.0) Hematocrit 38.2 % (37.0-47.0) Mean Corpuscular Volume 97 FL (80-99) Mean Corpuscular Hemoglobin 31.0 PG (27.0-31.0) Mean Corpuscular Hemoglobin Concent 31.9 G/DL (32.0-36.0) L Red Cell Distribution Width 14.8 % (11.6-14.8) Platelet Count 247 K/UL (150-450) Mean Platelet Volume 4.5 FL (6.5-10.1) L Neutrophils (%) (Auto) % (45.0-75.0) Lymphocytes (%) (Auto) % (20.0-45.0) Monocytes (%) (Auto) % (1.0-10.0) Eosinophils (%) (Auto) % (0.0-3.0) Basophils (%) (Auto) % (0.0-2.0) Differential Total Cells Counted 100 Neutrophils % (Manual) 77 % (45-75) H Lymphocytes % (Manual) 14 % (20-45) L Monocytes % (Manual) 9 % (1-10) Eosinophils % (Manual) 0 % (0-3) Basophils % (Manual) 0 % (0-2) Band Neutrophils 0 % (0-8) Nucleated Red Blood Cells 1 /100 WBC Platelet Estimate Adequate Platelet Morphology Normal Sodium Level 147 MMOL/L (136-145) H Potassium Level 4.5 MMOL/L (3.5-5.1) Chloride Level 110 MMOL/L (98-107) H Carbon Dioxide Level 26 MMOL/L (21-32) Anion Gap 11 mmol/L (5-15) Blood Urea Nitrogen 20 mg/dL (7-18) H Creatinine 1.0 MG/DL (0.55-1.30) Estimat Glomerular Filtration Rate > 60 mL/min (>60) Glucose Level 158 MG/DL (74-106) H Calcium Level 9.1 MG/DL (8.5-10.1) Phosphorus Level 3.8 MG/DL (2.5-4.9) Magnesium Level 2.7 MG/DL (1.8-2.4) H Total Bilirubin 0.4 MG/DL (0.2-1.0) Aspartate Amino Transf (AST/SGOT) 46 U/L (15-37) H Alanine Aminotransferase (ALT/SGPT) 88 U/L (12-78) H Alkaline Phosphatase 67 U/L (46-116) Total Protein 6.7 G/DL (6.4-8.2) Albumin 3.0 G/DL (3.4-5.0) L Globulin 3.7 g/dL Albumin/Globulin Ratio 0.8 (1.0-2.7) L Microbiology Date/Time Source Procedure Growth Status 12/26/18 08:10 Sputum Induced Gram Stain - Final Resulted 12/26/18 08:10 Sputum Culture - Preliminary Staphylococcus Aureus Usual Respiratory Candice Resulted 12/26/18 09:14 Indwelling Cath Urine Culture - Preliminary Resulted Objective HEENT: Atraumatic and normocephalic. Anicteric. Pupils are equal, round, and reactive to light and accommodation, intubated. NECK: JVP cannot be assessed. No carotid bruit. CARDIOVASCULAR: Normal S1, S2. Regular rate and rhythm. No murmurs, gallops, or rubs. PMI is at fourth intercostal space in the midclavicular line. LUNGS: Diminished breath sounds in both lungs. ABDOMEN: Soft, obese. No hepatosplenomegaly. Positive bowel sounds. EXTREMITIES: No evidence of edema, clubbing, or cyanosis. Velasquez Staton MD Dec 28, 2018 23:40
[2018-12-29] VITALS (33 sets, daily range): BP systolic 84–133; BP diastolic 39–83
--- NOTE | 2018-12-29 00:10 | NUR ---
NURSE NOTES: Suctioned,Derrick.Vent.settings.Pos.chg.Occ.restless/agitated.Medicated.OGT Feeding remain in progress.FSBS-196 covered.
[2018-12-29] MEDS: NovoLOG Insulin Flexpen SUBQ SCH ×4 (00:17→17:56)
[2018-12-29] MEDS: fentaNYL Citrate 2500mcg in NS 250ml IV SCH (00:59)
--- NOTE | 2018-12-29 02:00 | NUR ---
NURSE NOTES: Pos.chg.Suctioned.Fentanyl drip rate drops to 100mcg/hr.in prep.for poss.weaning again in am.No distress.Cont.Plan of care.
[2018-12-29] MEDS: Albuterol/Ipratropium 3ml neb HHN SCH ×6 (02:52→23:25)
[2018-12-29] MEDS: Acetylcysteine 20% Soln 4ml HHN SCH ×6 (02:52→23:25)
--- NOTE | 2018-12-29 04:30 | NUR ---
NURSE NOTES: Jim Meyer.Blood drawn for cbc/cmp/mg and phos.spec.to lab.Cont.to Taper down Fentanyl drip in prep.for poss.weaning this am.OGT Feeding on Hold TEMP.as ordered.
[2018-12-29 05:13] LABS: BASOPHILS % (AUTO) 1.1 % (0.0-2.0); EOSINOPHILS % (AUTO) 0.3 % (0.0-3.0); HEMATOCRIT 35.9 % (37.0-47.0); HEMOGLOBIN 11.6 G/DL (12.0-16.0); MEAN CORPUSCULAR VOLUME 98 FL (80-99); MONOCYTES % (AUTO) 8.8 % (1.0-10.0); NEUTROPHILS % (AUTO) 74.8 % (45.0-75.0); PLATELET COUNT 236 K/UL (150-450); RED BLOOD COUNT 3.68 M/UL (4.20-5.40); RED CELL DISTRIBUTION WIDTH 14.4 % (11.6-14.8); WHITE BLOOD COUNT 16.9 K/UL (4.8-10.8)
[2018-12-29 05:33] LABS: ALANINE AMINOTRANSFERASE 83 U/L (12-78); ALBUMIN 2.9 G/DL (3.4-5.0); ALBUMIN/GLOBULIN RATIO 0.8 (1.0-2.7); ALKALINE PHOSPHATASE 64 U/L (46-116); ANION GAP 11 mmol/L (5-15); ASPARTATE AMINO TRANSFERASE 39 U/L (15-37); BILIRUBIN,TOTAL 0.4 MG/DL (0.2-1.0); BLOOD UREA NITROGEN 18 mg/dL (7-18); CALCIUM 8.8 MG/DL (8.5-10.1); CARBON DIOXIDE 26 MMOL/L (21-32); CHLORIDE 111 MMOL/L (98-107); CREATININE 1.1 MG/DL (0.55-1.30); PHOSPHORUS 3.9 MG/DL (2.5-4.9); POTASSIUM 4.6 MMOL/L (3.5-5.1); SODIUM 148 MMOL/L (136-145)
--- NOTE | 2018-12-29 07:14 | NUR ---
HAND-OFF: Report given to JAIR RODRIGUEZ RN.
--- NOTE | 2018-12-29 07:20 | NUR ---
NURSE NOTES: Received report from CLARENCE Perry. Patient is sedated with fentanyl, at RASS -2. Orally intubated, ETT 7.0, 23cm at lip line, vent settings: AC24, TV550, FIO2 50%, PEEP 5. Bilateral diminished breath sounds noted upon auscultation. SR noted on the monitor technician. No acute distress noted. OGT intact, tube feeding has been held for weaning trial this am. Left AC 20G and Left wrist 20G intact, running fentanyl 50mcg/hr. Mon cath intact and patent, draining yellow urine by gravity. Patient on P200 mattress. SCDs on bilateral lower extremities. Bed in lowest position, locked, side rails upx3. Bed alarm on. Call light within reach. Will continue to monitor.
--- NOTE | 2018-12-29 07:30 | NUR ---
NURSE NOTES: fentanyl gtt held for weaning trial. RT at bedside.
--- NOTE | 2018-12-29 08:00 | NUR ---
NURSE NOTES: Weaning was initiated by RT at 0745. Patient is awake, calm, resting in bed comfortably. No distress noted. VSS. Fentanyl gtt off.
[2018-12-29] MEDS: Pantoprazole Inj IVP SCH ×2 (08:20→20:27)
[2018-12-29] MEDS: Miralax 17gm pkt NG PRN (08:20)
[2018-12-29] MEDS: Docusate 100mg tablet NG SCH ×2 (08:20→20:27)
[2018-12-29] MEDS: Doxycycline Monohydrate 100mg NG SCH ×2 (08:20→20:27)
[2018-12-29] MEDS: Solu-MEDROL 40mg Inj IVP SCH (08:20)
--- NOTE | 2018-12-29 08:51 | NUR ---
NURSE NOTES: Called Dr. Monsalve. 30min post weaning ABG results notified to Dr. Monsalve. made aware that feeding and fentanyl gtt has been held for weaning, and patient currently tolerating weaning. Per MD, okay to extubate and place the patient on cool mist with PRN Bipap order. Informed RT.
--- NOTE | 2018-12-29 09:00 | General Progress Note ---
Assessment/Plan Status: progressing, unchanged Assessment/Plan: Problems: (1) Anemia ICD Codes: D64.9 - Anemia, unspecified SNOMED: 059403783 (2) Salicylate overdose ICD Codes: T39.091A - Poisoning by salicylates, accidental (unintentional), initial encounter SNOMED: 122623128, 9771912 (3) Respiratory failure ICD Codes: J96.90 - Respiratory failure, unspecified, unspecified whether with hypoxia or hypercapnia SNOMED: 435591661 (4) Suicidal intent ICD Codes: R45.851 - Suicidal ideations SNOMED: 944748037 Status: unchanged Status Narrative Discussed with Dr. Saldana. Assessment/Plan No plans for GI procedures at this time Medical management for salicylate overdose TF on hold for possible extubation Electrolyte correction anemia work up OB stool r/o GI bleed monitor H&H, prn transfusions bowel regimen ppi fu labs Subjective ROS Limited/Unobtainable: No Allergies: Coded Allergies: No Known Allergies (Unverified , 11/07/13) Objective Last 24 Hour Vital Signs Date Time Temp Pulse Resp B/P (MAP) Pulse Ox O2 Delivery O2 Flow Rate FiO2 12/29/18 08:33 85 15 50 12/29/18 08:00 98.3 94 24 101/43 (62) 97 12/29/18 08:00 50 12/29/18 08:00 Mechanical Ventilator 12/29/18 08:00 103 12/29/18 07:49 92 12/29/18 07:49 86 16 50 50 12/29/18 07:37 104 24 99 Mechanical Ventilator 50 110 24 50 12/29/18 07:30 24 Mechanical Ventilator 50 12/29/18 07:30 106 24 113/75 (88) 100 12/29/18 07:00 24 Mechanical Ventilator 50 12/29/18 07:00 86 24 106/47 (66) 97 12/29/18 06:30 84 24 118/64 (82) 98 12/29/18 06:00 24 Mechanical Ventilator 50 12/29/18 06:00 87 24 123/60 (81) 98 12/29/18 05:30 86 24 133/73 (93) 99 12/29/18 05:00 24 Mechanical Ventilator 50 12/29/18 05:00 83 24 98/56 (70) 99 12/29/18 04:45 94 24 50 12/29/18 04:30 88 24 123/81 (95) 99 12/29/18 04:00 Mechanical Ventilator 12/29/18 04:00 100 12/29/18 04:00 50 12/29/18 04:00 24 Mechanical Ventilator 50 12/29/18 04:00 98.9 100 24 109/59 (76) 97 12/29/18 03:30 91 24 111/57 (75) 97 12/29/18 03:00 76 24 126/83 (97) 100 12/29/18 03:00 24 Mechanical Ventilator 50 12/29/18 02:52 64 24 97 Mechanical Ventilator 50 64 24 50 12/29/18 02:30 71 24 99/56 (70) 97 12/29/18 02:00 73 24 97/56 (70) 98 12/29/18 02:00 24 Mechanical Ventilator 50 12/29/18 01:30 99.2 12/29/18 01:30 77 24 104/58 (73) 98 12/29/18 01:00 24 Mechanical Ventilator 50 12/29/18 01:00 86 24 112/65 (81) 99 12/29/18 00:59 24 Mechanical Ventilator 50 12/29/18 00:54 95 25 50 12/29/18 00:30 82 24 103/56 (72) 98 12/29/18 00:00 99.2 83 24 107/51 (69) 98 12/29/18 00:00 Mechanical Ventilator 12/29/18 00:00 50 12/29/18 00:00 83 12/29/18 00:00 24 Mechanical Ventilator 50 12/28/18 23:30 84 24 102/50 (67) 99 12/28/18 23:00 24 Mechanical Ventilator 50 12/28/18 23:00 81 24 103/46 (65) 97 12/28/18 22:33 86 24 97 Mechanical Ventilator 50 86 24 50 12/28/18 22:30 72 24 137/81 (99) 96 12/28/18 22:00 76 24 99/54 (69) 98 12/28/18 22:00 24 Mechanical Ventilator 50 12/28/18 22:00 50 12/28/18 21:40 50 12/28/18 21:30 76 24 109/70 (83) 99 12/28/18 21:00 24 Mechanical Ventilator 35 12/28/18 21:00 79 24 108/58 (75) 98 12/28/18 20:50 103 24 35 12/28/18 20:30 77 24 100/50 (67) 96 12/28/18 20:00 Mechanical Ventilator 12/28/18 20:00 99.3 84 24 92/41 (58) 97 12/28/18 20:00 24 Mechanical Ventilator 35 12/28/18 20:00 84 12/28/18 20:00 35 12/28/18 19:30 100 24 96/41 (59) 96 12/28/18 19:00 97 25 127/63 (84) 97 12/28/18 19:00 24 Mechanical Ventilator 35 12/28/18 18:52 80 24 95 Mechanical Ventilator 35 80 24 35 12/28/18 18:45 80 24 107/60 (76) 95 12/28/18 18:30 81 24 104/64 (77) 96 12/28/18 18:30 24 Mechanical Ventilator 35 12/28/18 18:20 24 Mechanical Ventilator 35 12/28/18 18:15 86 24 113/57 (75) 97 12/28/18 18:10 24 Mechanical Ventilator 35 12/28/18 18:05 24 Mechanical Ventilator 35 12/28/18 18:00 24 Mechanical Ventilator 35 12/28/18 18:00 86 24 119/76 (90) 96 12/28/18 17:55 24 Mechanical Ventilator 35 12/28/18 17:50 24 Mechanical Ventilator 35 12/28/18 17:45 24 Mechanical Ventilator 35 12/28/18 17:45 89 24 116/66 (83) 97 12/28/18 17:40 24 Mechanical Ventilator 35 12/28/18 17:35 24 Mechanical Ventilator 35 12/28/18 17:30 104 24 131/75 (93) 97 12/28/18 17:30 24 Mechanical Ventilator 35 12/28/18 17:25 24 Mechanical Ventilator 35 12/28/18 17:20 24 Mechanical Ventilator 35 12/28/18 17:15 105 24 133/105 (114) 97 12/28/18 17:15 24 Mechanical Ventilator 35 12/28/18 17:10 24 Mechanical Ventilator 35 12/28/18 17:09 108 24 Mechanical Ventilator 35 12/28/18 17:05 24 Mechanical Ventilator 35 12/28/18 17:00 102 24 114/66 (82) 97 12/28/18 17:00 24 Mechanical Ventilator 35 12/28/18 16:55 24 Mechanical Ventilator 35 12/28/18 16:50 24 Mechanical Ventilator 35 12/28/18 16:45 24 Mechanical Ventilator 35 12/28/18 16:45 108 24 113/62 (79) 96 12/28/18 16:40 24 Mechanical Ventilator 35 12/28/18 16:35 24 Mechanical Ventilator 35 12/28/18 16:30 24 Mechanical Ventilator 35 12/28/18 16:30 99 24 131/74 (93) 96 12/28/18 16:25 24 Mechanical Ventilator 35 12/28/18 16:20 24 Mechanical Ventilator 35 12/28/18 16:15 24 Mechanical Ventilator 35 12/28/18 16:10 24 Mechanical Ventilator 35 12/28/18 16:00 98 12/28/18 16:00 40 12/28/18 16:00 99.0 103 24 127/61 (83) 95 12/28/18 16:00 Mechanical Ventilator 12/28/18 15:45 107 24 149/85 (106) 96 12/28/18 15:30 101 24 112/82 (92) 98 12/28/18 15:00 85 24 99/52 (68) 96 12/28/18 14:45 24 Mechanical Ventilator 40 12/28/18 14:45 98 24 85/48 (60) 100 12/28/18 14:42 105 24 100 Mechanical Ventilator 35 105 24 35 12/28/18 14:30 84 24 107/51 (69) 94 12/28/18 14:20 86 24 92/51 (65) 99 12/28/18 14:15 87 24 89/50 (63) 94 12/28/18 14:00 24 Mechanical Ventilator 40 12/28/18 14:00 91 24 94/49 (64) 94 12/28/18 13:30 107 24 97/49 (65) 94 12/28/18 13:08 87 24 Mechanical Ventilator 40 12/28/18 13:00 93 24 98/59 (72) 94 12/28/18 13:00 24 Mechanical Ventilator 40 12/28/18 12:45 96 24 110/54 (72) 95 12/28/18 12:30 89 24 103/59 (74) 95 12/28/18 12:30 24 Mechanical Ventilator 40 12/28/18 12:20 24 Mechanical Ventilator 40 12/28/18 12:15 85 24 111/67 (82) 95 12/28/18 12:10 24 Mechanical Ventilator 40 12/28/18 12:00 Mechanical Ventilator 12/28/18 12:00 40 12/28/18 12:00 92 12/28/18 12:00 24 Mechanical Ventilator 40 12/28/18 12:00 98.7 95 24 128/78 (95) 98 12/28/18 11:50 24 Mechanical Ventilator 40 12/28/18 11:42 76 24 97 Mechanical Ventilator 40 78 24 40 12/28/18 11:40 24 Mechanical Ventilator 40 12/28/18 11:30 81 24 101/49 (66) 97 12/28/18 11:30 24 Mechanical Ventilator 40 12/28/18 11:20 24 Mechanical Ventilator 40 12/28/18 11:15 85 24 103/54 (70) 98 12/28/18 11:10 24 Mechanical Ventilator 40 12/28/18 11:00 86 24 126/78 (94) 98 12/28/18 11:00 24 Mechanical Ventilator 40 12/28/18 10:50 24 Mechanical Ventilator 40 12/28/18 10:45 102 24 118/68 (85) 98 12/28/18 10:40 24 Mechanical Ventilator 40 12/28/18 10:30 83 24 125/63 (83) 98 12/28/18 10:30 24 Mechanical Ventilator 40 12/28/18 10:20 24 Mechanical Ventilator 40 12/28/18 10:15 24 Mechanical Ventilator 40 12/28/18 10:15 85 24 121/67 (85) 97 12/28/18 10:00 24 Mechanical Ventilator 40 12/28/18 10:00 95 24 118/65 (82) 98 12/28/18 09:55 100 12/28/18 09:30 94 24 119/68 (85) 97 12/28/18 09:18 97 24 40 12/28/18 09:15 24 Mechanical Ventilator 40 12/28/18 09:00 94 24 98/86 (90) 97 12/28/18 09:00 24 Mechanical Ventilator 40 Intake and Output 12/28/18 12/29/18 19:00 07:00 Intake Total 696.063 ml 505 ml Output Total 420 ml 360 ml Balance 276.063 ml 145 ml Free Water 190 ml 80 ml IV Total 146.063 ml 145 ml Tube Feeding 360 ml 280 ml Output Urine Total 420 ml 360 ml Laboratory Tests 12/28/18 09:00: White Blood Count 19.0H, Red Blood Count 3.93L, Hemoglobin 12.2, Hematocrit 38.2 , Mean Corpuscular Volume 97, Mean Corpuscular Hemoglobin 31.0, Mean Corpuscular Hemoglobin Concent 31.9L, Red Cell Distribution Width 14.8, Platelet Count 247, Mean Platelet Volume 4.5L, Neutrophils (%) (Auto) , Lymphocytes (%) (Auto) , Monocytes (%) (Auto) , Eosinophils (%) (Auto) , Basophils (%) (Auto) , Differential Total Cells Counted 100, Neutrophils % ( Manual) 77H, Lymphocytes % (Manual) 14L, Monocytes % (Manual) 9, Eosinophils % ( Manual) 0, Basophils % (Manual) 0, Band Neutrophils 0, Nucleated Red Blood Cells 1, Platelet Estimate Adequate, Platelet Morphology Normal, Sodium Level 147H, Potassium Level 4.5, Chloride Level 110H, Carbon Dioxide Level 26, Anion Gap 11, Blood Urea Nitrogen 20H, Creatinine 1.0, Estimat Glomerular Filtration Rate > 60, Glucose Level 158H, Calcium Level 9.1, Phosphorus Level 3.8, Magnesium Level 2.7H, Total Bilirubin 0.4, Aspartate Amino Transf (AST/SGOT) 46H , Alanine Aminotransferase (ALT/SGPT) 88H, Alkaline Phosphatase 67, Total Protein 6.7, Albumin 3.0L, Globulin 3.7, Albumin/Globulin Ratio 0.8L 12/29/18 05:00: White Blood Count 16.9H, Red Blood Count 3.68L, Hemoglobin 11.6L, Hematocrit 35.9L, Mean Corpuscular Volume 98, Mean Corpuscular Hemoglobin 31.5H, Mean Corpuscular Hemoglobin Concent 32.3, Red Cell Distribution Width 14.4, Platelet Count 236, Mean Platelet Volume 5.2L, Neutrophils (%) (Auto) 74.8, Lymphocytes ( %) (Auto) 15.0L, Monocytes (%) (Auto) 8.8, Eosinophils (%) (Auto) 0.3, Basophils (%) (Auto) 1.1, Sodium Level 148H, Potassium Level 4.6, Chloride Level 111H, Carbon Dioxide Level 26, Anion Gap 11, Blood Urea Nitrogen 18, Creatinine 1.1, Estimat Glomerular Filtration Rate > 60, Glucose Level 126H, Calcium Level 8.8, Phosphorus Level 3.9, Magnesium Level 2.6H, Total Bilirubin 0.4, Aspartate Amino Transf (AST/SGOT) 39H, Alanine Aminotransferase (ALT/SGPT) 83H, Alkaline Phosphatase 64, Total Protein 6.4, Albumin 2.9L, Globulin 3.5, Albumin/Globulin Ratio 0.8L 12/29/18 08:15: Arterial Blood pH 7.370, Arterial Blood Partial Pressure CO2 49.5H, Arterial Blood Partial Pressure O2 94.6, Arterial Blood HCO3 28.0H, Arterial Blood Oxygen Saturation 96.4, Arterial Blood Base Excess 2.0, Luis Test Positive Height (Feet): 5 Height (Inches): 9.00 Weight (Pounds): 311 General Appearance: no apparent distress EENT: normal ENT inspection Neck: supple Cardiovascular: normal rate Respiratory/Chest: decreased breath sounds Abdomen: normal bowel sounds, non tender, no organomegaly Extremities: non-tender Vladimir Saldana MD Dec 29, 2018 09:00
--- NOTE | 2018-12-29 09:00 | NUR ---
NURSE NOTES: Mon care and oral care provided. Patient was turned and repositioned. Patient kept clean and dry.
--- NOTE | 2018-12-29 09:20 | NUR ---
NURSE NOTES: Patient was extubated and placed on cool mist 12L FIO2 50% by RT Mahsa. No stridor. Patient awake, tolerated well. O2 sat 98%.
--- NOTE | 2018-12-29 09:20 | NUR ---
RESPIRATORY NOTE: Extubated per Dr. Monsalve's order. Placed pt on cool aerosol 50%FiO2 12L, pt is tolerating well. No SOB or resp distress noted. No stridor heard upon extubation. Pal Andino at bedside and aware. Will continue to monitor pt.
--- NOTE | 2018-12-29 10:00 | NUR ---
NURSE NOTES: Patient resting in bed comfortably. No acute distress noted. VSS. O2 sat 97% on cool aerosol FIO2 50%.
--- NOTE | 2018-12-29 11:15 | NUR ---
NURSE NOTES: Patient's son, Sukhdeep, made aware that patient was extubated today. Son to [facility] to visit the patient later today.
--- NOTE | 2018-12-29 11:20 | NUR ---
NURSE NOTES: Patient seen by Dr. Boudreaux. updated on patient's condition. No new orders at this time.
--- NOTE | 2018-12-29 12:05 | Infectious Diseases Prog Note ---
Assessment/Plan Assessment/Plan IMPRESSION: Sepsis or systemic inflammatory response syndrome, COPD, Hypercapnic respiratory failure, s Salicylate toxicity, Morbid obesity. Leukocytosis improving Positive Urine culture, colonization RECOMMENDATION: Continue Doxycycline Sputum culture: normal aniyah& Staph aureus Taper steroids. Subjective ROS Limited/Unobtainable: Yes Respiratory: Reports: other - extubated Neurologic: Reports: other - off restraint Allergies: Coded Allergies: No Known Allergies (Unverified , 11/07/13) Objective Vital Signs Last 24 Hour Vital Signs Date Time Temp Pulse Resp B/P (MAP) Pulse Ox O2 Delivery O2 Flow Rate FiO2 12/29/18 11:29 107 22 100 Cool Aerosol 12.0 50 98 27 100 12/29/18 11:00 91 24 105/51 (69) 96 12/29/18 10:00 90 24 100/39 (59) 95 12/29/18 09:20 Venturi Mask 12.0 50 12/29/18 09:00 87 16 105/57 (73) 100 12/29/18 08:33 85 15 50 12/29/18 08:30 89 14 91/52 (65) 98 12/29/18 08:00 98.3 94 24 101/43 (62) 97 12/29/18 08:00 50 12/29/18 08:00 Mechanical Ventilator 12/29/18 08:00 103 12/29/18 07:49 92 12/29/18 07:49 86 16 50 50 12/29/18 07:37 104 24 99 Mechanical Ventilator 50 110 24 50 12/29/18 07:30 24 Mechanical Ventilator 50 12/29/18 07:30 106 24 113/75 (88) 100 12/29/18 07:00 24 Mechanical Ventilator 50 12/29/18 07:00 86 24 106/47 (66) 97 12/29/18 06:30 84 24 118/64 (82) 98 12/29/18 06:00 24 Mechanical Ventilator 50 12/29/18 06:00 87 24 123/60 (81) 98 12/29/18 05:30 86 24 133/73 (93) 99 12/29/18 05:00 24 Mechanical Ventilator 50 12/29/18 05:00 83 24 98/56 (70) 99 12/29/18 04:45 94 24 50 12/29/18 04:30 88 24 123/81 (95) 99 12/29/18 04:00 Mechanical Ventilator 12/29/18 04:00 100 12/29/18 04:00 50 12/29/18 04:00 24 Mechanical Ventilator 50 12/29/18 04:00 98.9 100 24 109/59 (76) 97 12/29/18 03:30 91 24 111/57 (75) 97 12/29/18 03:00 76 24 126/83 (97) 100 12/29/18 03:00 24 Mechanical Ventilator 50 12/29/18 02:52 64 24 97 Mechanical Ventilator 50 64 24 50 12/29/18 02:30 71 24 99/56 (70) 97 12/29/18 02:00 73 24 97/56 (70) 98 12/29/18 02:00 24 Mechanical Ventilator 50 12/29/18 01:30 99.2 12/29/18 01:30 77 24 104/58 (73) 98 12/29/18 01:00 24 Mechanical Ventilator 50 12/29/18 01:00 86 24 112/65 (81) 99 12/29/18 00:59 24 Mechanical Ventilator 50 12/29/18 00:54 95 25 50 12/29/18 00:30 82 24 103/56 (72) 98 12/29/18 00:00 99.2 83 24 107/51 (69) 98 12/29/18 00:00 Mechanical Ventilator 12/29/18 00:00 50 12/29/18 00:00 83 12/29/18 00:00 24 Mechanical Ventilator 50 12/28/18 23:30 84 24 102/50 (67) 99 12/28/18 23:00 24 Mechanical Ventilator 50 12/28/18 23:00 81 24 103/46 (65) 97 12/28/18 22:33 86 24 97 Mechanical Ventilator 50 86 24 50 12/28/18 22:30 72 24 137/81 (99) 96 12/28/18 22:00 76 24 99/54 (69) 98 12/28/18 22:00 24 Mechanical Ventilator 50 12/28/18 22:00 50 12/28/18 21:40 50 12/28/18 21:30 76 24 109/70 (83) 99 12/28/18 21:00 24 Mechanical Ventilator 35 12/28/18 21:00 79 24 108/58 (75) 98 12/28/18 20:50 103 24 35 12/28/18 20:30 77 24 100/50 (67) 96 12/28/18 20:00 Mechanical Ventilator 12/28/18 20:00 99.3 84 24 92/41 (58) 97 12/28/18 20:00 24 Mechanical Ventilator 35 12/28/18 20:00 84 12/28/18 20:00 35 12/28/18 19:30 100 24 96/41 (59) 96 12/28/18 19:00 97 25 127/63 (84) 97 12/28/18 19:00 24 Mechanical Ventilator 35 12/28/18 18:52 80 24 95 Mechanical Ventilator 35 80 24 35 12/28/18 18:45 80 24 107/60 (76) 95 12/28/18 18:30 81 24 104/64 (77) 96 12/28/18 18:30 24 Mechanical Ventilator 35 12/28/18 18:20 24 Mechanical Ventilator 35 12/28/18 18:15 86 24 113/57 (75) 97 12/28/18 18:10 24 Mechanical Ventilator 35 12/28/18 18:05 24 Mechanical Ventilator 35 12/28/18 18:00 24 Mechanical Ventilator 35 12/28/18 18:00 86 24 119/76 (90) 96 12/28/18 17:55 24 Mechanical Ventilator 35 12/28/18 17:50 24 Mechanical Ventilator 35 12/28/18 17:45 24 Mechanical Ventilator 35 12/28/18 17:45 89 24 116/66 (83) 97 12/28/18 17:40 24 Mechanical Ventilator 35 12/28/18 17:35 24 Mechanical Ventilator 35 12/28/18 17:30 104 24 131/75 (93) 97 12/28/18 17:30 24 Mechanical Ventilator 35 12/28/18 17:25 24 Mechanical Ventilator 35 12/28/18 17:20 24 Mechanical Ventilator 35 12/28/18 17:15 105 24 133/105 (114) 97 12/28/18 17:15 24 Mechanical Ventilator 35 12/28/18 17:10 24 Mechanical Ventilator 35 12/28/18 17:09 108 24 Mechanical Ventilator 35 12/28/18 17:05 24 Mechanical Ventilator 35 12/28/18 17:00 102 24 114/66 (82) 97 8/27/19 17:00 24 Mechanical Ventilator 35 12/28/18 16:55 24 Mechanical Ventilator 35 12/28/18 16:50 24 Mechanical Ventilator 35 12/28/18 16:45 24 Mechanical Ventilator 35 12/28/18 16:45 108 24 113/62 (79) 96 12/28/18 16:40 24 Mechanical Ventilator 35 12/28/18 16:35 24 Mechanical Ventilator 35 12/28/18 16:30 24 Mechanical Ventilator 35 12/28/18 16:30 99 24 131/74 (93) 96 12/28/18 16:25 24 Mechanical Ventilator 35 12/28/18 16:20 24 Mechanical Ventilator 35 12/28/18 16:15 24 Mechanical Ventilator 35 12/28/18 16:10 24 Mechanical Ventilator 35 12/28/18 16:00 98 12/28/18 16:00 40 12/28/18 16:00 99.0 103 24 127/61 (83) 95 12/28/18 16:00 Mechanical Ventilator 12/28/18 15:45 107 24 149/85 (106) 96 12/28/18 15:30 101 24 112/82 (92) 98 12/28/18 15:00 85 24 99/52 (68) 96 12/28/18 14:45 24 Mechanical Ventilator 40 12/28/18 14:45 98 24 85/48 (60) 100 12/28/18 14:42 105 24 100 Mechanical Ventilator 35 105 24 35 12/28/18 14:30 84 24 107/51 (69) 94 12/28/18 14:20 86 24 92/51 (65) 99 12/28/18 14:15 87 24 89/50 (63) 94 12/28/18 14:00 24 Mechanical Ventilator 40 12/28/18 14:00 91 24 94/49 (64) 94 12/28/18 13:30 107 24 97/49 (65) 94 12/28/18 13:08 87 24 Mechanical Ventilator 40 12/28/18 13:00 93 24 98/59 (72) 94 12/28/18 13:00 24 Mechanical Ventilator 40 12/28/18 12:45 96 24 110/54 (72) 95 12/28/18 12:30 89 24 103/59 (74) 95 12/28/18 12:30 24 Mechanical Ventilator 40 12/28/18 12:20 24 Mechanical Ventilator 40 12/28/18 12:15 85 24 111/67 (82) 95 12/28/18 12:10 24 Mechanical Ventilator 40 Height (Feet): 5 Height (Inches): 9.00 Weight (Pounds): 311 General Appearance: other - obese HEENT: mucous membranes moist, other - h Respiratory/Chest: decreased breath sounds, other - oxygen by mask Cardiovascular: normal rate Abdomen: soft, non tender Extremities: no edema Neurologic/Psychiatric: other - sleeping Laboratory Tests Test 12/29/18 05:00 12/29/18 08:15 White Blood Count 16.9 K/UL (4.8-10.8) H Red Blood Count 3.68 M/UL (4.20-5.40) L Hemoglobin 11.6 G/DL (12.0-16.0) L Hematocrit 35.9 % (37.0-47.0) L Mean Corpuscular Volume 98 FL (80-99) Mean Corpuscular Hemoglobin 31.5 PG (27.0-31.0) H Mean Corpuscular Hemoglobin Concent 32.3 G/DL (32.0-36.0) Red Cell Distribution Width 14.4 % (11.6-14.8) Platelet Count 236 K/UL (150-450) Mean Platelet Volume 5.2 FL (6.5-10.1) L Neutrophils (%) (Auto) 74.8 % (45.0-75.0) Lymphocytes (%) (Auto) 15.0 % (20.0-45.0) L Monocytes (%) (Auto) 8.8 % (1.0-10.0) Eosinophils (%) (Auto) 0.3 % (0.0-3.0) Basophils (%) (Auto) 1.1 % (0.0-2.0) Sodium Level 148 MMOL/L (136-145) H Potassium Level 4.6 MMOL/L (3.5-5.1) Chloride Level 111 MMOL/L (98-107) H Carbon Dioxide Level 26 MMOL/L (21-32) Anion Gap 11 mmol/L (5-15) Blood Urea Nitrogen 18 mg/dL (7-18) Creatinine 1.1 MG/DL (0.55-1.30) Estimat Glomerular Filtration Rate > 60 mL/min (>60) Glucose Level 126 MG/DL (74-106) H Calcium Level 8.8 MG/DL (8.5-10.1) Phosphorus Level 3.9 MG/DL (2.5-4.9) Magnesium Level 2.6 MG/DL (1.8-2.4) H Total Bilirubin 0.4 MG/DL (0.2-1.0) Aspartate Amino Transf (AST/SGOT) 39 U/L (15-37) H Alanine Aminotransferase (ALT/SGPT) 83 U/L (12-78) H Alkaline Phosphatase 64 U/L (46-116) Total Protein 6.4 G/DL (6.4-8.2) Albumin 2.9 G/DL (3.4-5.0) L Globulin 3.5 g/dL Albumin/Globulin Ratio 0.8 (1.0-2.7) L Arterial Blood pH 7.370 (7.350-7.450) Arterial Blood Partial Pressure CO2 49.5 mmHg (35.0-45.0) H Arterial Blood Partial Pressure O2 94.6 mmHg (75.0-100.0) Arterial Blood HCO3 28.0 mmol/L (22.0-26.0) H Arterial Blood Oxygen Saturation 96.4 % (95-100) Arterial Blood Base Excess 2.0 (-2-2) Luis Test Positive Current Medications Medications (Trade) Dose Ordered Sig/Amaya Route PRN Reason Start Time Stop Time Status Last Admin Dose Admin Acetaminophen (Tylenol) 650 mg Q4HR PRN NG FOR TEMP >100.5 12/23/18 07:30 01/22/19 07:29 12/25/18 17:13 Acetylcysteine (Mucomyst) 200 mg Q4HRT N 12/24/18 23:00 01/23/19 12:59 12/29/18 11:14 Albuterol/ Ipratropium (Albuterol/ Ipratropium) 3 ml Q4HRT N 12/26/18 19:45 12/31/18 19:44 12/29/18 11:14 Clonidine HCl (Catapres Tab) 0.1 mg Q6H PRN NG For High Blood Pressure 12/26/18 15:00 01/25/19 14:59 Dextrose (Dextrose 50%) 25 ml Q30M PRN IV Hypoglycemia 12/21/18 17:00 9/19/19 16:59 Dextrose (Dextrose 50%) 50 ml Q30M PRN IV Hypoglycemia 12/21/18 17:00 01/20/19 16:59 Docusate Sodium (Colace) 100 mg Q12HR NG 12/28/18 21:00 01/27/19 20:59 12/29/18 08:20 Doxycycline Monohydrate (Doxycycline Monohydrate) 100 mg EVERY 12 HOURS NG 12/27/18 13:30 01/03/19 13:29 12/29/18 08:20 Fentanyl Citrate 2500 mcg/Sodium Chloride 250 ml @ 0 mls/hr Q24H IV 12/24/18 23:31 12/31/18 23:30 12/29/18 00:59 Haloperidol Lactate (Haldol) 5 mg Q6H PRN IM Agitation 12/24/18 00:30 01/23/19 00:29 12/24/18 16:22 Insulin Aspart (NovoLOG) EVERY 6 HOURS SUBQ 12/21/18 18:00 01/20/19 17:59 12/29/18 05:56 Lorazepam (Ativan 2mg/ml 1ml) 1 mg Q2H PRN IV For Anxiety 12/28/18 17:43 01/04/19 17:42 12/28/18 23:41 Methylprednisolone Sodium Succinate (Solu-MEDROL) 40 mg DAILY IVP 12/29/18 09:00 01/28/19 08:59 12/29/18 08:20 Pantoprazole (Protonix) 40 mg EVERY 12 HOURS IVP 12/22/18 11:00 01/21/19 10:59 12/29/18 08:20 Polyethylene Glycol (Miralax) 17 gm DAILYPRN PRN NG Constipation 12/28/18 10:30 01/27/19 10:29 12/29/18 08:20 Quetiapine Fumarate (SEROquel) 25 mg Q6H PRN NG Agitation 12/28/18 10:45 01/20/19 12:29 Nikos Martinez MD Dec 29, 2018 12:05
--- NOTE | 2018-12-29 12:50 | NUR ---
NURSE NOTES: Patient was agitated, pulled out OGT. Patient currently calm and resting in bed comfortably. HOB kept elevated. Left a message to Dr. woodall. VSS, O2 sat 100%. FIO2 titrated down to 40% by RT.
--- NOTE | 2018-12-29 12:59 | NUR ---
NURSE NOTES: Spoke with Dr. Saldana. Moisés to d/c tube feeding and keep the patient NPO.
--- NOTE | 2018-12-29 13:26 | Nephrology Progress Note ---
Assessment/Plan Problem List: (1) Salicylate overdose (2) Psychosis (3) Anemia (4) Obesity (5) Hypokalemia (6) Rhabdomyolysis Assessment: high CPK Assessment HypoKalemia Mild Anemia s/p Acidosis resolved Respiratory failure Salicylate overdose Psychosis Asthma Obesity Plan Plan: hold Norvasc extubated 12/29 K , Mag , Phos supplement as needed no IV fluids weaning as possible taper steroids as possible IV Protonix Resp management per Dr hurt monitor renal parameters Urine studies Subjective ROS Limited/Unobtainable: No Constitutional: Reports: malaise Objective Objective Last 24 Hour Vital Signs Date Time Temp Pulse Resp B/P (MAP) Pulse Ox O2 Delivery O2 Flow Rate FiO2 12/29/18 12:00 98.4 99 26 97/51 (66) 94 12/29/18 12:00 122 12/29/18 12:00 Simple Mask 12.0 12/29/18 11:29 107 22 100 Cool Aerosol 12.0 50 98 27 100 12/29/18 11:00 91 24 105/51 (69) 96 12/29/18 10:00 90 24 100/39 (59) 95 12/29/18 09:20 Venturi Mask 12.0 50 12/29/18 09:00 87 16 105/57 (73) 100 12/29/18 08:33 85 15 50 12/29/18 08:30 89 14 91/52 (65) 98 12/29/18 08:00 98.3 94 24 101/43 (62) 97 12/29/18 08:00 50 12/29/18 08:00 Mechanical Ventilator 12/29/18 08:00 103 12/29/18 07:49 92 12/29/18 07:49 86 16 50 50 12/29/18 07:37 104 24 99 Mechanical Ventilator 50 110 24 50 12/29/18 07:30 24 Mechanical Ventilator 50 12/29/18 07:30 106 24 113/75 (88) 100 12/29/18 07:00 24 Mechanical Ventilator 50 12/29/18 07:00 86 24 106/47 (66) 97 12/29/18 06:30 84 24 118/64 (82) 98 12/29/18 06:00 24 Mechanical Ventilator 50 12/29/18 06:00 87 24 123/60 (81) 98 12/29/18 05:30 86 24 133/73 (93) 99 12/29/18 05:00 24 Mechanical Ventilator 50 12/29/18 05:00 83 24 98/56 (70) 99 12/29/18 04:45 94 24 50 12/29/18 04:30 88 24 123/81 (95) 99 12/29/18 04:00 Mechanical Ventilator 12/29/18 04:00 100 12/29/18 04:00 50 12/29/18 04:00 24 Mechanical Ventilator 50 12/29/18 04:00 98.9 100 24 109/59 (76) 97 12/29/18 03:30 91 24 111/57 (75) 97 12/29/18 03:00 76 24 126/83 (97) 100 12/29/18 03:00 24 Mechanical Ventilator 50 12/29/18 02:52 64 24 97 Mechanical Ventilator 50 64 24 50 12/29/18 02:30 71 24 99/56 (70) 97 12/29/18 02:00 73 24 97/56 (70) 98 12/29/18 02:00 24 Mechanical Ventilator 50 12/29/18 01:30 99.2 12/29/18 01:30 77 24 104/58 (73) 98 12/29/18 01:00 24 Mechanical Ventilator 50 12/29/18 01:00 86 24 112/65 (81) 99 12/29/18 00:59 24 Mechanical Ventilator 50 12/29/18 00:54 95 25 50 12/29/18 00:30 82 24 103/56 (72) 98 12/29/18 00:00 99.2 83 24 107/51 (69) 98 12/29/18 00:00 Mechanical Ventilator 12/29/18 00:00 50 12/29/18 00:00 83 12/29/18 00:00 24 Mechanical Ventilator 50 12/28/18 23:30 84 24 102/50 (67) 99 12/28/18 23:00 24 Mechanical Ventilator 50 12/28/18 23:00 81 24 103/46 (65) 97 12/28/18 22:33 86 24 97 Mechanical Ventilator 50 86 24 50 12/28/18 22:30 72 24 137/81 (99) 96 12/28/18 22:00 76 24 99/54 (69) 98 12/28/18 22:00 24 Mechanical Ventilator 50 12/28/18 22:00 50 12/28/18 21:40 50 12/28/18 21:30 76 24 109/70 (83) 99 12/28/18 21:00 24 Mechanical Ventilator 35 12/28/18 21:00 79 24 108/58 (75) 98 12/28/18 20:50 103 24 35 12/28/18 20:30 77 24 100/50 (67) 96 12/28/18 20:00 Mechanical Ventilator 12/28/18 20:00 99.3 84 24 92/41 (58) 97 12/28/18 20:00 24 Mechanical Ventilator 35 12/28/18 20:00 84 12/28/18 20:00 35 12/28/18 19:30 100 24 96/41 (59) 96 12/28/18 19:00 97 25 127/63 (84) 97 12/28/18 19:00 24 Mechanical Ventilator 35 12/28/18 18:52 80 24 95 Mechanical Ventilator 35 80 24 35 12/28/18 18:45 80 24 107/60 (76) 95 12/28/18 18:30 81 24 104/64 (77) 96 12/28/18 18:30 24 Mechanical Ventilator 35 12/28/18 18:20 24 Mechanical Ventilator 35 12/28/18 18:15 86 24 113/57 (75) 97 12/28/18 18:10 24 Mechanical Ventilator 35 12/28/18 18:05 24 Mechanical Ventilator 35 12/28/18 18:00 24 Mechanical Ventilator 35 12/28/18 18:00 86 24 119/76 (90) 96 12/28/18 17:55 24 Mechanical Ventilator 35 12/28/18 17:50 24 Mechanical Ventilator 35 12/28/18 17:45 24 Mechanical Ventilator 35 12/28/18 17:45 89 24 116/66 (83) 97 12/28/18 17:40 24 Mechanical Ventilator 35 12/28/18 17:35 24 Mechanical Ventilator 35 12/28/18 17:30 104 24 131/75 (93) 97 12/28/18 17:30 24 Mechanical Ventilator 35 12/28/18 17:25 24 Mechanical Ventilator 35 12/28/18 17:20 24 Mechanical Ventilator 35 12/28/18 17:15 105 24 133/105 (114) 97 8/27/19 17:15 24 Mechanical Ventilator 35 12/28/18 17:10 24 Mechanical Ventilator 35 12/28/18 17:09 108 24 Mechanical Ventilator 35 12/28/18 17:05 24 Mechanical Ventilator 35 12/28/18 17:00 102 24 114/66 (82) 97 12/28/18 17:00 24 Mechanical Ventilator 35 12/28/18 16:55 24 Mechanical Ventilator 35 12/28/18 16:50 24 Mechanical Ventilator 35 12/28/18 16:45 24 Mechanical Ventilator 35 12/28/18 16:45 108 24 113/62 (79) 96 12/28/18 16:40 24 Mechanical Ventilator 35 12/28/18 16:35 24 Mechanical Ventilator 35 12/28/18 16:30 24 Mechanical Ventilator 35 12/28/18 16:30 99 24 131/74 (93) 96 12/28/18 16:25 24 Mechanical Ventilator 35 12/28/18 16:20 24 Mechanical Ventilator 35 12/28/18 16:15 24 Mechanical Ventilator 35 12/28/18 16:10 24 Mechanical Ventilator 35 12/28/18 16:00 98 12/28/18 16:00 40 12/28/18 16:00 99.0 103 24 127/61 (83) 95 12/28/18 16:00 Mechanical Ventilator 12/28/18 15:45 107 24 149/85 (106) 96 12/28/18 15:30 101 24 112/82 (92) 98 12/28/18 15:00 85 24 99/52 (68) 96 12/28/18 14:45 24 Mechanical Ventilator 40 12/28/18 14:45 98 24 85/48 (60) 100 12/28/18 14:42 105 24 100 Mechanical Ventilator 35 105 24 35 12/28/18 14:30 84 24 107/51 (69) 94 12/28/18 14:20 86 24 92/51 (65) 99 12/28/18 14:15 87 24 89/50 (63) 94 12/28/18 14:00 24 Mechanical Ventilator 40 12/28/18 14:00 91 24 94/49 (64) 94 12/28/18 13:30 107 24 97/49 (65) 94 Intake and Output 12/28/18 12/29/18 19:00 07:00 Intake Total 696.063 ml 505 ml Output Total 420 ml 360 ml Balance 276.063 ml 145 ml Free Water 190 ml 80 ml IV Total 146.063 ml 145 ml Tube Feeding 360 ml 280 ml Output Urine Total 420 ml 360 ml Laboratory Tests 12/29/18 05:00: White Blood Count 16.9H, Red Blood Count 3.68L, Hemoglobin 11.6L, Hematocrit 35.9L, Mean Corpuscular Volume 98, Mean Corpuscular Hemoglobin 31.5H, Mean Corpuscular Hemoglobin Concent 32.3, Red Cell Distribution Width 14.4, Platelet Count 236, Mean Platelet Volume 5.2L, Neutrophils (%) (Auto) 74.8, Lymphocytes ( %) (Auto) 15.0L, Monocytes (%) (Auto) 8.8, Eosinophils (%) (Auto) 0.3, Basophils (%) (Auto) 1.1, Sodium Level 148H, Potassium Level 4.6, Chloride Level 111H, Carbon Dioxide Level 26, Anion Gap 11, Blood Urea Nitrogen 18, Creatinine 1.1, Estimat Glomerular Filtration Rate > 60, Glucose Level 126H, Calcium Level 8.8, Phosphorus Level 3.9, Magnesium Level 2.6H, Total Bilirubin 0.4, Aspartate Amino Transf (AST/SGOT) 39H, Alanine Aminotransferase (ALT/SGPT) 83H, Alkaline Phosphatase 64, Total Protein 6.4, Albumin 2.9L, Globulin 3.5, Albumin/Globulin Ratio 0.8L 12/29/18 08:15: Arterial Blood pH 7.370, Arterial Blood Partial Pressure CO2 49.5H, Arterial Blood Partial Pressure O2 94.6, Arterial Blood HCO3 28.0H, Arterial Blood Oxygen Saturation 96.4, Arterial Blood Base Excess 2.0, Luis Test Positive Height (Feet): 5 Height (Inches): 9.00 Weight (Pounds): 311 General Appearance: no apparent distress EENT: other - extubated this morning Respiratory/Chest: decreased breath sounds Abdomen: distended Jerzy Boudreaux MD Dec 29, 2018 13:26
--- NOTE | 2018-12-29 14:00 | NUR ---
NURSE NOTES: Patient asleep, easily arousable. No acute distress noted. Patient kept clean and dry. Oral suction provided. VSS.
[2018-12-29] MEDS ORDERED: NS 275ml ONE (14:27)
--- NOTE | 2018-12-29 15:43 | NUR ---
NURSE NOTES: Patient seen by Dr. Monsalve. made aware that pt pulled out OGT earlier and kept NPO. D5 1/2NS at 40ml/hr ordered per Dr. Monsalve.
--- NOTE | 2018-12-29 15:46 | NUR ---
CASE MANAGEMENT: REVIEW 12/29/2018 SI:SEPSIS. PNA. T 98.4 HR 122 RR 26 B/P 97/51 SATS 94% ON 2L/SIMPLE MASK WBC 16.9 NA 148 CL 111 GLU 126 MG 2.6 AST 39 ALT 83 ABGs PCO2 49.5 HCO3 28 IS:INSULIN ASPART SUBQ Q6H PROTONIX IV Q12H K PHOS IV X1 FENTANYL IV Q24H CEFTRIAXONE IV Q24H SOLU MEDROL IV Q6H IVF @ 40 mL/HR DOXYCYCLINE NG Q12H ICU
[2018-12-29] MEDS: D5 1/2NS 1,000 ML IV SCH (16:04)
--- NOTE | 2018-12-29 17:30 | NUR ---
NURSE NOTES: Patient was turned and repositioned. Patient kept clean and dry. SCDs on. No distress noted. VSS. O2 sat 94%.
--- NOTE | 2018-12-29 19:03 | Hematology/Onc Progress Note ---
Assessment/Plan Assessment/Plan Assessment and Recs: # Anemia of iron deficiency with decreased ferritin --> No evidence of hemolysis is noted, peripheral smear has been reviewed. --> Hgb goal >7. Transfuse prn. --> Iron has been ordered x 1 dose given stable hgb --> Medications have been reviewed --> low threshold for gi evaluation in case has occult + --> hgb trend 11.6 # Leukocytosis is likely due to steriods --> monitor steriod use --> accuchecks qac and qhs --> insulin as needed prn --> on ctx/doxy per id prn --> wbc 12-->15->17-->18 # Salicylate overdose now improved --> Medical management for salicylate overdose --> Sodium bicarbonate --> IVF started, as per renal --> now improved # Electrolyte correction --> replace k prn basis # Resp failure --> 12/29 extubated on nc The timing of this note does not necessarily reflect the time of the patient was seen. GREATLY APPRECIATE CONSULTATION. Subjective Constitutional: Denies: no symptoms, chills, fever, malaise, weakness, other HEENT: Reports: no symptoms, eye pain, blurred vision, tearing, double vision, ear pain, ear discharge, nose pain, nose congestion, throat pain, throat swelling, mouth pain, mouth swelling, other Cardiovascular: Denies: no symptoms, chest pain, edema, irregular heart rate, lightheadedness, palpitations, syncope, other Gastrointestinal/Abdominal: Denies: no symptoms, abdomen distended, abdominal pain, black stools, tarry stools, blood in stool, constipated, diarrhea, difficulty swallowing, nausea, poor appetite, poor fluid intake, rectal bleeding , vomiting, other Neurologic/Psychiatric: Denies: no symptoms, anxiety, depressed, emotional problems, headache, numbness, paresthesia, pre-existing deficit, seizure, tingling, tremors, weakness, other Allergies: Coded Allergies: No Known Allergies (Unverified , 11/07/13) Subjective 12/23: no events, no bleeding reported, tf held for potential extubation 12/24: icu, trach, agitated and confused, labs reviewed, abx, fentanyl 12/26: no bleeding, no chills, still on abx, fentayl, labs reviewed 12/27: dox and ctx, no bleeding sputum cultures reviewed 12/29: turned, repositioned, remains npo, labs noted Objective Objective Current Medications Medications (Trade) Dose Ordered Sig/Amaya Route PRN Reason Start Time Stop Time Status Last Admin Dose Admin Acetaminophen (Tylenol) 650 mg Q4HR PRN NG FOR TEMP >100.5 12/23/18 07:30 01/22/19 07:29 12/25/18 17:13 Acetylcysteine (Mucomyst) 200 mg Q4HRT HHN 12/24/18 23:00 01/23/19 12:59 12/29/18 14:38 Albuterol/ Ipratropium (Albuterol/ Ipratropium) 3 ml Q4HRT HHN 12/26/18 19:45 12/31/18 19:44 12/29/18 14:39 Clonidine HCl (Catapres Tab) 0.1 mg Q6H PRN NG For High Blood Pressure 12/26/18 15:00 01/25/19 14:59 Dextrose (Dextrose 50%) 25 ml Q30M PRN IV Hypoglycemia 12/21/18 17:00 01/20/19 16:59 Dextrose (Dextrose 50%) 50 ml Q30M PRN IV Hypoglycemia 12/21/18 17:00 01/20/19 16:59 Dextrose/Sodium Chloride 1,000 ml @ 40 mls/hr Q24H IV 12/29/18 15:45 01/28/19 15:44 12/29/18 16:04 Docusate Sodium (Colace) 100 mg Q12HR NG 12/28/18 21:00 01/27/19 20:59 12/29/18 08:20 Doxycycline Monohydrate (Doxycycline Monohydrate) 100 mg EVERY 12 HOURS NG 12/27/18 13:30 01/03/19 13:29 12/29/18 08:20 Haloperidol Lactate (Haldol) 5 mg Q6H PRN IM Agitation 12/24/18 00:30 01/23/19 00:29 12/24/18 16:22 Insulin Aspart (NovoLOG) EVERY 6 HOURS SUBQ 12/21/18 18:00 01/20/19 17:59 12/29/18 17:56 Lorazepam (Ativan 2mg/ml 1ml) 1 mg Q2H PRN IV For Anxiety 12/28/18 17:43 01/04/19 17:42 12/28/18 23:41 Methylprednisolone Sodium Succinate (Solu-MEDROL) 40 mg DAILY IVP 12/29/18 09:00 01/28/19 08:59 12/29/18 08:20 Pantoprazole (Protonix) 40 mg EVERY 12 HOURS IVP 12/22/18 11:00 01/21/19 10:59 12/29/18 08:20 Polyethylene Glycol (Miralax) 17 gm DAILYPRN PRN NG Constipation 12/28/18 10:30 01/27/19 10:29 12/29/18 08:20 Quetiapine Fumarate (SEROquel) 25 mg Q6H PRN NG Agitation 12/28/18 10:45 01/20/19 12:29 Last 24 Hour Vital Signs Date Time Temp Pulse Resp B/P (MAP) Pulse Ox O2 Delivery O2 Flow Rate FiO2 12/29/18 18:00 106 28 129/68 (88) 95 12/29/18 17:00 83 28 99/64 (76) 94 12/29/18 16:00 98.6 113 24 106/60 (75) 94 12/29/18 16:00 Simple Mask 12.0 12/29/18 16:00 86 12/29/18 15:20 95 Cool Aerosol 12.0 40 12/29/18 15:00 84 29 108/56 (73) 97 12/29/18 14:54 103 19 95 Cool Aerosol 12.0 40 93 25 91 12/29/18 14:54 103 19 95 Cool Aerosol 12.0 40 12/29/18 14:00 99 29 108/55 (72) 100 12/29/18 13:00 100 27 102/47 (65) 100 12/29/18 12:00 98.4 99 26 97/51 (66) 94 12/29/18 12:00 122 12/29/18 12:00 Simple Mask 12.0 12/29/18 11:29 107 22 100 Cool Aerosol 12.0 50 98 27 100 12/29/18 11:00 91 24 105/51 (69) 96 12/29/18 10:00 90 24 100/39 (59) 95 12/29/18 09:20 Venturi Mask 12.0 50 12/29/18 09:00 87 16 105/57 (73) 100 12/29/18 08:33 85 15 50 12/29/18 08:30 89 14 91/52 (65) 98 12/29/18 08:00 98.3 94 24 101/43 (62) 97 12/29/18 08:00 50 12/29/18 08:00 Mechanical Ventilator 12/29/18 08:00 103 12/29/18 07:49 92 12/29/18 07:49 86 16 50 50 12/29/18 07:37 104 24 99 Mechanical Ventilator 50 110 24 50 12/29/18 07:30 24 Mechanical Ventilator 50 12/29/18 07:30 106 24 113/75 (88) 100 12/29/18 07:00 24 Mechanical Ventilator 50 12/29/18 07:00 86 24 106/47 (66) 97 12/29/18 06:30 84 24 118/64 (82) 98 12/29/18 06:00 24 Mechanical Ventilator 50 12/29/18 06:00 87 24 123/60 (81) 98 12/29/18 05:30 86 24 133/73 (93) 99 12/29/18 05:00 24 Mechanical Ventilator 50 12/29/18 05:00 83 24 98/56 (70) 99 12/29/18 04:45 94 24 50 12/29/18 04:30 88 24 123/81 (95) 99 12/29/18 04:00 Mechanical Ventilator 12/29/18 04:00 100 12/29/18 04:00 50 12/29/18 04:00 24 Mechanical Ventilator 50 12/29/18 04:00 98.9 100 24 109/59 (76) 97 12/29/18 03:30 91 24 111/57 (75) 97 12/29/18 03:00 76 24 126/83 (97) 100 12/29/18 03:00 24 Mechanical Ventilator 50 12/29/18 02:52 64 24 97 Mechanical Ventilator 50 64 24 50 12/29/18 02:30 71 24 99/56 (70) 97 12/29/18 02:00 73 24 97/56 (70) 98 12/29/18 02:00 24 Mechanical Ventilator 50 12/29/18 01:30 99.2 12/29/18 01:30 77 24 104/58 (73) 98 8/28/19 01:00 24 Mechanical Ventilator 50 12/29/18 01:00 86 24 112/65 (81) 99 12/29/18 00:59 24 Mechanical Ventilator 50 12/29/18 00:54 95 25 50 12/29/18 00:30 82 24 103/56 (72) 98 12/29/18 00:00 99.2 83 24 107/51 (69) 98 12/29/18 00:00 Mechanical Ventilator 12/29/18 00:00 50 12/29/18 00:00 83 12/29/18 00:00 24 Mechanical Ventilator 50 12/28/18 23:30 84 24 102/50 (67) 99 12/28/18 23:00 24 Mechanical Ventilator 50 12/28/18 23:00 81 24 103/46 (65) 97 12/28/18 22:33 86 24 97 Mechanical Ventilator 50 86 24 50 12/28/18 22:30 72 24 137/81 (99) 96 12/28/18 22:00 76 24 99/54 (69) 98 12/28/18 22:00 24 Mechanical Ventilator 50 12/28/18 22:00 50 12/28/18 21:40 50 12/28/18 21:30 76 24 109/70 (83) 99 12/28/18 21:00 24 Mechanical Ventilator 35 12/28/18 21:00 79 24 108/58 (75) 98 12/28/18 20:50 103 24 35 12/28/18 20:30 77 24 100/50 (67) 96 12/28/18 20:00 Mechanical Ventilator 12/28/18 20:00 99.3 84 24 92/41 (58) 97 12/28/18 20:00 24 Mechanical Ventilator 35 12/28/18 20:00 84 12/28/18 20:00 35 12/28/18 19:30 100 24 96/41 (59) 96 12/28/18 19:00 97 25 127/63 (84) 97 12/28/18 19:00 24 Mechanical Ventilator 35 12/28/18 18:52 80 24 95 Mechanical Ventilator 35 80 24 35 12/28/18 18:45 80 24 107/60 (76) 95 12/28/18 18:30 81 24 104/64 (77) 96 12/28/18 18:30 24 Mechanical Ventilator 35 12/28/18 18:20 24 Mechanical Ventilator 35 12/28/18 18:15 86 24 113/57 (75) 97 12/28/18 18:10 24 Mechanical Ventilator 35 12/28/18 18:05 24 Mechanical Ventilator 35 12/28/18 18:00 24 Mechanical Ventilator 35 12/28/18 18:00 86 24 119/76 (90) 96 12/28/18 17:55 24 Mechanical Ventilator 35 12/28/18 17:50 24 Mechanical Ventilator 35 12/28/18 17:45 24 Mechanical Ventilator 35 12/28/18 17:45 89 24 116/66 (83) 97 12/28/18 17:40 24 Mechanical Ventilator 35 12/28/18 17:35 24 Mechanical Ventilator 35 12/28/18 17:30 104 24 131/75 (93) 97 12/28/18 17:30 24 Mechanical Ventilator 35 12/28/18 17:25 24 Mechanical Ventilator 35 12/28/18 17:20 24 Mechanical Ventilator 35 12/28/18 17:15 105 24 133/105 (114) 97 12/28/18 17:15 24 Mechanical Ventilator 35 12/28/18 17:10 24 Mechanical Ventilator 35 12/28/18 17:09 108 24 Mechanical Ventilator 35 12/28/18 17:05 24 Mechanical Ventilator 35 12/28/18 17:00 102 24 114/66 (82) 97 12/28/18 17:00 24 Mechanical Ventilator 35 12/28/18 16:55 24 Mechanical Ventilator 35 12/28/18 16:50 24 Mechanical Ventilator 35 12/28/18 16:45 24 Mechanical Ventilator 35 12/28/18 16:45 108 24 113/62 (79) 96 12/28/18 16:40 24 Mechanical Ventilator 35 12/28/18 16:35 24 Mechanical Ventilator 35 12/28/18 16:30 24 Mechanical Ventilator 35 12/28/18 16:30 99 24 131/74 (93) 96 12/28/18 16:25 24 Mechanical Ventilator 35 12/28/18 16:20 24 Mechanical Ventilator 35 12/28/18 16:15 24 Mechanical Ventilator 35 12/28/18 16:10 24 Mechanical Ventilator 35 12/28/18 16:00 98 12/28/18 16:00 40 12/28/18 16:00 99.0 103 24 127/61 (83) 95 12/28/18 16:00 Mechanical Ventilator 12/28/18 15:45 107 24 149/85 (106) 96 12/28/18 15:30 101 24 112/82 (92) 98 12/28/18 15:00 85 24 99/52 (68) 96 12/28/18 14:45 24 Mechanical Ventilator 40 12/28/18 14:45 98 24 85/48 (60) 100 12/28/18 14:42 105 24 100 Mechanical Ventilator 35 105 24 35 12/28/18 14:30 84 24 107/51 (69) 94 12/28/18 14:20 86 24 92/51 (65) 99 12/28/18 14:15 87 24 89/50 (63) 94 12/28/18 14:00 24 Mechanical Ventilator 40 12/28/18 14:00 91 24 94/49 (64) 94 12/28/18 13:30 107 24 97/49 (65) 94 12/28/18 13:08 87 24 Mechanical Ventilator 40 12/28/18 13:00 93 24 98/59 (72) 94 12/28/18 13:00 24 Mechanical Ventilator 40 12/28/18 12:45 96 24 110/54 (72) 95 12/28/18 12:30 89 24 103/59 (74) 95 12/28/18 12:30 24 Mechanical Ventilator 40 12/28/18 12:20 24 Mechanical Ventilator 40 12/28/18 12:15 85 24 111/67 (82) 95 12/28/18 12:10 24 Mechanical Ventilator 40 12/28/18 12:00 Mechanical Ventilator 12/28/18 12:00 40 12/28/18 12:00 92 12/28/18 12:00 24 Mechanical Ventilator 40 12/28/18 12:00 98.7 95 24 128/78 (95) 98 12/28/18 11:50 24 Mechanical Ventilator 40 12/28/18 11:42 76 24 97 Mechanical Ventilator 40 78 24 40 12/28/18 11:40 24 Mechanical Ventilator 40 12/28/18 11:30 81 24 101/49 (66) 97 12/28/18 11:30 24 Mechanical Ventilator 40 12/28/18 11:20 24 Mechanical Ventilator 40 12/28/18 11:15 85 24 103/54 (70) 98 12/28/18 11:10 24 Mechanical Ventilator 40 12/28/18 11:00 86 24 126/78 (94) 98 12/28/18 11:00 24 Mechanical Ventilator 40 12/28/18 10:50 24 Mechanical Ventilator 40 12/28/18 10:45 102 24 118/68 (85) 98 12/28/18 10:40 24 Mechanical Ventilator 40 12/28/18 10:30 83 24 125/63 (83) 98 12/28/18 10:30 24 Mechanical Ventilator 40 12/28/18 10:20 24 Mechanical Ventilator 40 12/28/18 10:15 24 Mechanical Ventilator 40 12/28/18 10:15 85 24 121/67 (85) 97 12/28/18 10:00 24 Mechanical Ventilator 40 12/28/18 10:00 95 24 118/65 (82) 98 12/28/18 09:55 100 12/28/18 09:30 94 24 119/68 (85) 97 12/28/18 09:18 97 24 40 12/28/18 09:15 24 Mechanical Ventilator 40 12/28/18 09:00 94 24 98/86 (90) 97 12/28/18 09:00 24 Mechanical Ventilator 40 12/28/18 08:30 84 24 121/71 (88) 99 12/28/18 08:16 102 129/79 12/28/18 08:16 24 Mechanical Ventilator 40 12/28/18 08:15 24 Mechanical Ventilator 40 12/28/18 08:00 98.8 90 24 111/58 (75) 100 12/28/18 08:00 24 Mechanical Ventilator 40 12/28/18 08:00 85 12/28/18 08:00 40 12/28/18 08:00 Mechanical Ventilator 12/28/18 07:30 85 24 119/65 (83) 96 12/28/18 07:05 82 24 100 Mechanical Ventilator 40 82 24 40 12/28/18 07:00 24 Mechanical Ventilator 40 12/28/18 07:00 109 22 129/75 (93) 97 12/28/18 06:30 90 23 134/84 (101) 98 12/28/18 06:00 24 Mechanical Ventilator 40 12/28/18 06:00 85 24 130/79 (96) 99 12/28/18 05:45 24 Mechanical Ventilator 40 12/28/18 05:30 122 22 126/82 (97) 98 12/28/18 05:16 89 24 40 12/28/18 05:00 102 23 111/64 (80) 98 12/28/18 04:45 24 Mechanical Ventilator 40 12/28/18 04:30 117 23 164/99 (120) 96 12/28/18 04:00 40 12/28/18 04:00 Mechanical Ventilator 12/28/18 04:00 98.0 117 24 196/92 (126) 97 12/28/18 04:00 103 12/28/18 03:45 24 Mechanical Ventilator 40 12/28/18 03:30 119 22 162/104 (123) 92 12/28/18 03:00 74 24 136/81 (99) 98 12/28/18 02:55 68 24 97 Mechanical Ventilator 40 68 24 40 12/28/18 02:45 24 Mechanical Ventilator 40 12/28/18 02:30 69 24 144/81 (102) 98 12/28/18 02:00 70 24 148/81 (103) 97 12/28/18 01:45 24 Mechanical Ventilator 40 12/28/18 01:30 71 24 143/91 (108) 96 12/28/18 01:16 73 24 40 12/28/18 01:00 70 24 136/80 (98) 95 12/28/18 00:45 21 Mechanical Ventilator 40 12/28/18 00:40 21 Mechanical Ventilator 40 12/28/18 00:35 24 Mechanical Ventilator 40 12/28/18 00:30 72 24 135/76 (95) 95 12/28/18 00:30 24 Mechanical Ventilator 40 12/28/18 00:25 24 Mechanical Ventilator 40 12/28/18 00:20 24 Mechanical Ventilator 40 12/28/18 00:15 24 Mechanical Ventilator 40 12/28/18 00:10 24 Mechanical Ventilator 40 12/28/18 00:05 24 Mechanical Ventilator 40 12/28/18 00:00 40 12/28/18 00:00 24 Mechanical Ventilator 40 12/28/18 00:00 68 12/28/18 00:00 98.2 70 24 132/79 (96) 97 12/28/18 00:00 Mechanical Ventilator 12/27/18 23:55 24 Mechanical Ventilator 40 12/27/18 23:50 24 Mechanical Ventilator 40 12/27/18 23:45 24 Mechanical Ventilator 40 12/27/18 23:40 24 Mechanical Ventilator 40 12/27/18 23:35 24 Mechanical Ventilator 40 12/27/18 23:30 82 23 169/88 (115) 97 12/27/18 23:30 24 Mechanical Ventilator 40 12/27/18 23:25 24 Mechanical Ventilator 40 12/27/18 23:20 24 Mechanical Ventilator 40 12/27/18 23:15 24 Mechanical Ventilator 40 12/27/18 23:14 68 24 98 Mechanical Ventilator 40 78 24 40 12/27/18 23:10 24 Mechanical Ventilator 40 12/27/18 23:05 24 Mechanical Ventilator 40 12/27/18 23:00 69 24 118/66 (83) 97 12/27/18 23:00 24 Mechanical Ventilator 40 12/27/18 22:30 64 24 135/75 (95) 96 12/27/18 22:00 24 Mechanical Ventilator 40 12/27/18 22:00 65 23 126/71 (89) 95 12/27/18 21:30 69 24 123/66 (85) 95 12/27/18 21:00 24 Mechanical Ventilator 40 12/27/18 21:00 73 24 128/63 (84) 96 12/27/18 20:48 75 24 40 12/27/18 20:30 73 24 139/72 (94) 98 12/27/18 20:00 Mechanical Ventilator 12/27/18 20:00 98.0 79 24 146/80 (102) 98 12/27/18 20:00 24 Mechanical Ventilator 40 12/27/18 20:00 40 12/27/18 20:00 78 12/27/18 19:30 78 24 149/89 (109) 99 12/27/18 19:29 76 24 98 Mechanical Ventilator 40 78 24 40 Intake and Output 12/28/18 12/29/18 19:00 07:00 Intake Total 696.063 ml 505 ml Output Total 420 ml 360 ml Balance 276.063 ml 145 ml Free Water 190 ml 80 ml IV Total 146.063 ml 145 ml Tube Feeding 360 ml 280 ml Output Urine Total 420 ml 360 ml Labs Test 12/27/18 03:00 12/27/18 08:57 12/28/18 09:00 12/29/18 05:00 White Blood Count 18.1 K/UL (4.8-10.8) 19.0 K/UL (4.8-10.8) 16.9 K/UL (4.8-10.8) Red Blood Count 3.66 M/UL (4.20-5.40) 3.93 M/UL (4.20-5.40) 3.68 M/UL (4.20-5.40) Hemoglobin 11.4 G/DL (12.0-16.0) 12.2 G/DL (12.0-16.0) 11.6 G/DL (12.0-16.0) Hematocrit 35.4 % (37.0-47.0) 38.2 % (37.0-47.0) 35.9 % (37.0-47.0) Mean Corpuscular Volume 97 FL (80-99) 97 FL (80-99) 98 FL (80-99) Mean Corpuscular Hemoglobin 31.3 PG (27.0-31.0) 31.0 PG (27.0-31.0) 31.5 PG (27.0-31.0) Mean Corpuscular Hemoglobin Concent 32.3 G/DL (32.0-36.0) 31.9 G/DL (32.0-36.0) 32.3 G/DL (32.0-36.0) Red Cell Distribution Width 14.7 % (11.6-14.8) 14.8 % (11.6-14.8) 14.4 % (11.6-14.8) Platelet Count 267 K/UL (150-450) 247 K/UL (150-450) 236 K/UL (150-450) Mean Platelet Volume 5.1 FL (6.5-10.1) 4.5 FL (6.5-10.1) 5.2 FL (6.5-10.1) Neutrophils (%) (Auto) % (45.0-75.0) % (45.0-75.0) 74.8 % (45.0-75.0) Lymphocytes (%) (Auto) % (20.0-45.0) % (20.0-45.0) 15.0 % (20.0-45.0) Monocytes (%) (Auto) % (1.0-10.0) % (1.0-10.0) 8.8 % (1.0-10.0) Eosinophils (%) (Auto) % (0.0-3.0) % (0.0-3.0) 0.3 % (0.0-3.0) Basophils (%) (Auto) % (0.0-2.0) % (0.0-2.0) 1.1 % (0.0-2.0) Differential Total Cells Counted 100 100 Neutrophils % (Manual) 74 % (45-75) 77 % (45-75) Lymphocytes % (Manual) 21 % (20-45) 14 % (20-45) Monocytes % (Manual) 5 % (1-10) 9 % (1-10) Eosinophils % (Manual) 0 % (0-3) 0 % (0-3) Basophils % (Manual) 0 % (0-2) 0 % (0-2) Band Neutrophils 0 % (0-8) 0 % (0-8) Platelet Estimate Adequate Adequate Platelet Morphology Normal Normal Polychromasia 1+ Anisocytosis 1+ Sodium Level 145 MMOL/L (136-145) 147 MMOL/L (136-145) 148 MMOL/L (136-145) Potassium Level 4.0 MMOL/L (3.5-5.1) 4.5 MMOL/L (3.5-5.1) 4.6 MMOL/L (3.5-5.1) Chloride Level 108 MMOL/L (98-107) 110 MMOL/L (98-107) 111 MMOL/L (98-107) Carbon Dioxide Level 24 MMOL/L (21-32) 26 MMOL/L (21-32) 26 MMOL/L (21-32) Anion Gap 13 mmol/L (5-15) 11 mmol/L (5-15) 11 mmol/L (5-15) Blood Urea Nitrogen 20 mg/dL (7-18) 20 mg/dL (7-18) 18 mg/dL (7-18) Creatinine 1.1 MG/DL (0.55-1.30) 1.0 MG/DL (0.55-1.30) 1.1 MG/DL (0.55-1.30) Estimat Glomerular Filtration Rate > 60 mL/min (>60) > 60 mL/min (>60) > 60 mL/min (>60) Glucose Level 151 MG/DL (74-106) 158 MG/DL (74-106) 126 MG/DL (74-106) Uric Acid 3.2 MG/DL (2.6-7.2) Calcium Level 8.9 MG/DL (8.5-10.1) 9.1 MG/DL (8.5-10.1) 8.8 MG/DL (8.5-10.1) Phosphorus Level 3.4 MG/DL (2.5-4.9) 3.8 MG/DL (2.5-4.9) 3.9 MG/DL (2.5-4.9) Magnesium Level 2.6 MG/DL (1.8-2.4) 2.7 MG/DL (1.8-2.4) 2.6 MG/DL (1.8-2.4) Total Bilirubin 0.4 MG/DL (0.2-1.0) 0.4 MG/DL (0.2-1.0) 0.4 MG/DL (0.2-1.0) Aspartate Amino Transf (AST/SGOT) 48 U/L (15-37) 46 U/L (15-37) 39 U/L (15-37) Alanine Aminotransferase (ALT/SGPT) 86 U/L (12-78) 88 U/L (12-78) 83 U/L (12-78) Alkaline Phosphatase 68 U/L (46-116) 67 U/L (46-116) 64 U/L (46-116) C-Reactive Protein, Quantitative 2.4 mg/dL (0.00-0.90) Pro-B-Type Natriuretic Peptide 68 pg/mL (0-125) Total Protein 6.4 G/DL (6.4-8.2) 6.7 G/DL (6.4-8.2) 6.4 G/DL (6.4-8.2) Albumin 3.1 G/DL (3.4-5.0) 3.0 G/DL (3.4-5.0) 2.9 G/DL (3.4-5.0) Globulin 3.3 g/dL 3.7 g/dL 3.5 g/dL Albumin/Globulin Ratio 0.9 (1.0-2.7) 0.8 (1.0-2.7) 0.8 (1.0-2.7) Arterial Blood pH 7.471 (7.350-7.450) Arterial Blood Partial Pressure CO2 35.0 mmHg (35.0-45.0) Arterial Blood Partial Pressure O2 92.5 mmHg (75.0-100.0) Arterial Blood HCO3 25.0 mmol/L (22.0-26.0) Arterial Blood Oxygen Saturation 96.5 % (95-100) Arterial Blood Base Excess 1.6 (-2-2) Luis Test Positive Nucleated Red Blood Cells /100 WBC Test 12/29/18 08:15 Arterial Blood pH 7.370 (7.350-7.450) Arterial Blood Partial Pressure CO2 49.5 mmHg (35.0-45.0) Arterial Blood Partial Pressure O2 94.6 mmHg (75.0-100.0) Arterial Blood HCO3 28.0 mmol/L (22.0-26.0) Arterial Blood Oxygen Saturation 96.4 % (95-100) Arterial Blood Base Excess 2.0 (-2-2) Luis Test Positive Height (Feet): 5 Height (Inches): 9.00 Weight (Pounds): 311 Objective Physical Exam General Appearance: well appearing, nad, obese Head: normocephalic ++ ogt Resp: normal breath sounds nc Cardiovascular: normal rate Gastrointestinal: normal inspection, non tender, soft, normal bowel sounds, non -distended Msk: normal inspection, back normal Skin: normal inspection, normal color, no rash, warm/dry, palpation normal, well hydrated Lymphatic: normal inspection, no adenopathy Wade Bonds MD Dec 29, 2018 19:03
--- NOTE | 2018-12-29 19:18 | NUR ---
HAND-OFF: Report given to CLARENCE Dickey.
--- NOTE | 2018-12-29 19:20 | NUR ---
NURSE NOTES: Received report from CLARENCE Andino. Patient is awake and responsive to verbal and tactile stimuli. Able to follow commands. S/P extubation. O2 Sat 95-98% with cool aerosol FiO2 40%. On NPO. Pulled out OGT this morning by patient. Mon intact and draining with yellow urine. Left AV 20G and left wrist 20G intact. D51/2NS running at 40ml/hr. Elevated HOB>30. Call-light placed in easy reach. Will continue plan of care.
--- NOTE | 2018-12-29 19:40 | NUR ---
NURSE NOTES: Patient is asking for drink. Offered ice chip and patient is tolerating well.
--- NOTE | 2018-12-29 19:50 | Cardiology Progress Note ---
Assessment/Plan Assessment/Plan 1. Sinus tachycardia, most likely due to hypoxemia, there is no need for AV carissa agents. 2. Acute respiratory failure due to right lung whiteout, extubated earlier. 3. History of chronic obstructive pulmonary disease. 4. History of salicylate overdose. 5. Morbid obesity. 6. Hyperthyroidism 7. Dyslipidemia Subjective Subjective Sinus tachycardia at rate of 111. Intubated at FiO2 of 40%. Objective Last 24 Hour Vital Signs Date Time Temp Pulse Resp B/P (MAP) Pulse Ox O2 Delivery O2 Flow Rate FiO2 12/29/18 19:32 99 Cool Aerosol 12.0 40 12/29/18 19:00 111 23 90/72 (78) 98 12/29/18 18:00 106 28 129/68 (88) 95 12/29/18 17:00 83 28 99/64 (76) 94 12/29/18 16:00 98.6 113 24 106/60 (75) 94 12/29/18 16:00 Simple Mask 12.0 12/29/18 16:00 86 12/29/18 15:20 95 Cool Aerosol 12.0 40 12/29/18 15:00 84 29 108/56 (73) 97 12/29/18 14:54 103 19 95 Cool Aerosol 12.0 40 93 25 91 12/29/18 14:54 103 19 95 Cool Aerosol 12.0 40 12/29/18 14:00 99 29 108/55 (72) 100 12/29/18 13:00 100 27 102/47 (65) 100 12/29/18 12:00 98.4 99 26 97/51 (66) 94 12/29/18 12:00 122 12/29/18 12:00 Simple Mask 12.0 12/29/18 11:29 107 22 100 Cool Aerosol 12.0 50 98 27 100 12/29/18 11:00 91 24 105/51 (69) 96 12/29/18 10:00 90 24 100/39 (59) 95 12/29/18 09:20 Venturi Mask 12.0 50 12/29/18 09:00 87 16 105/57 (73) 100 12/29/18 08:33 85 15 50 12/29/18 08:30 89 14 91/52 (65) 98 12/29/18 08:00 98.3 94 24 101/43 (62) 97 12/29/18 08:00 50 12/29/18 08:00 Mechanical Ventilator 12/29/18 08:00 103 12/29/18 07:49 92 12/29/18 07:49 86 16 50 50 12/29/18 07:37 104 24 99 Mechanical Ventilator 50 110 24 50 12/29/18 07:30 24 Mechanical Ventilator 50 12/29/18 07:30 106 24 113/75 (88) 100 12/29/18 07:00 24 Mechanical Ventilator 50 12/29/18 07:00 86 24 106/47 (66) 97 12/29/18 06:30 84 24 118/64 (82) 98 12/29/18 06:00 24 Mechanical Ventilator 50 12/29/18 06:00 87 24 123/60 (81) 98 12/29/18 05:30 86 24 133/73 (93) 99 12/29/18 05:00 24 Mechanical Ventilator 50 12/29/18 05:00 83 24 98/56 (70) 99 12/29/18 04:45 94 24 50 12/29/18 04:30 88 24 123/81 (95) 99 12/29/18 04:00 Mechanical Ventilator 12/29/18 04:00 100 12/29/18 04:00 50 12/29/18 04:00 24 Mechanical Ventilator 50 12/29/18 04:00 98.9 100 24 109/59 (76) 97 12/29/18 03:30 91 24 111/57 (75) 97 12/29/18 03:00 76 24 126/83 (97) 100 12/29/18 03:00 24 Mechanical Ventilator 50 12/29/18 02:52 64 24 97 Mechanical Ventilator 50 64 24 50 12/29/18 02:30 71 24 99/56 (70) 97 12/29/18 02:00 73 24 97/56 (70) 98 12/29/18 02:00 24 Mechanical Ventilator 50 12/29/18 01:30 99.2 12/29/18 01:30 77 24 104/58 (73) 98 12/29/18 01:00 24 Mechanical Ventilator 50 12/29/18 01:00 86 24 112/65 (81) 99 12/29/18 00:59 24 Mechanical Ventilator 50 12/29/18 00:54 95 25 50 12/29/18 00:30 82 24 103/56 (72) 98 12/29/18 00:00 99.2 83 24 107/51 (69) 98 12/29/18 00:00 Mechanical Ventilator 12/29/18 00:00 50 12/29/18 00:00 83 12/29/18 00:00 24 Mechanical Ventilator 50 12/28/18 23:30 84 24 102/50 (67) 99 12/28/18 23:00 24 Mechanical Ventilator 50 12/28/18 23:00 81 24 103/46 (65) 97 12/28/18 22:33 86 24 97 Mechanical Ventilator 50 86 24 50 12/28/18 22:30 72 24 137/81 (99) 96 12/28/18 22:00 76 24 99/54 (69) 98 12/28/18 22:00 24 Mechanical Ventilator 50 12/28/18 22:00 50 12/28/18 21:40 50 12/28/18 21:30 76 24 109/70 (83) 99 12/28/18 21:00 24 Mechanical Ventilator 35 12/28/18 21:00 79 24 108/58 (75) 98 12/28/18 20:50 103 24 35 12/28/18 20:30 77 24 100/50 (67) 96 12/28/18 20:00 Mechanical Ventilator 12/28/18 20:00 99.3 84 24 92/41 (58) 97 12/28/18 20:00 24 Mechanical Ventilator 35 12/28/18 20:00 84 12/28/18 20:00 35 Intake and Output 12/28/18 12/29/18 19:00 07:00 Intake Total 696.063 ml 505 ml Output Total 420 ml 360 ml Balance 276.063 ml 145 ml Free Water 190 ml 80 ml IV Total 146.063 ml 145 ml Tube Feeding 360 ml 280 ml Output Urine Total 420 ml 360 ml Laboratory Tests Test 12/29/18 05:00 12/29/18 08:15 White Blood Count 16.9 K/UL (4.8-10.8) H Red Blood Count 3.68 M/UL (4.20-5.40) L Hemoglobin 11.6 G/DL (12.0-16.0) L Hematocrit 35.9 % (37.0-47.0) L Mean Corpuscular Volume 98 FL (80-99) Mean Corpuscular Hemoglobin 31.5 PG (27.0-31.0) H Mean Corpuscular Hemoglobin Concent 32.3 G/DL (32.0-36.0) Red Cell Distribution Width 14.4 % (11.6-14.8) Platelet Count 236 K/UL (150-450) Mean Platelet Volume 5.2 FL (6.5-10.1) L Neutrophils (%) (Auto) 74.8 % (45.0-75.0) Lymphocytes (%) (Auto) 15.0 % (20.0-45.0) L Monocytes (%) (Auto) 8.8 % (1.0-10.0) Eosinophils (%) (Auto) 0.3 % (0.0-3.0) Basophils (%) (Auto) 1.1 % (0.0-2.0) Sodium Level 148 MMOL/L (136-145) H Potassium Level 4.6 MMOL/L (3.5-5.1) Chloride Level 111 MMOL/L (98-107) H Carbon Dioxide Level 26 MMOL/L (21-32) Anion Gap 11 mmol/L (5-15) Blood Urea Nitrogen 18 mg/dL (7-18) Creatinine 1.1 MG/DL (0.55-1.30) Estimat Glomerular Filtration Rate > 60 mL/min (>60) Glucose Level 126 MG/DL (74-106) H Calcium Level 8.8 MG/DL (8.5-10.1) Phosphorus Level 3.9 MG/DL (2.5-4.9) Magnesium Level 2.6 MG/DL (1.8-2.4) H Total Bilirubin 0.4 MG/DL (0.2-1.0) Aspartate Amino Transf (AST/SGOT) 39 U/L (15-37) H Alanine Aminotransferase (ALT/SGPT) 83 U/L (12-78) H Alkaline Phosphatase 64 U/L (46-116) Total Protein 6.4 G/DL (6.4-8.2) Albumin 2.9 G/DL (3.4-5.0) L Globulin 3.5 g/dL Albumin/Globulin Ratio 0.8 (1.0-2.7) L Arterial Blood pH 7.370 (7.350-7.450) Arterial Blood Partial Pressure CO2 49.5 mmHg (35.0-45.0) H Arterial Blood Partial Pressure O2 94.6 mmHg (75.0-100.0) Arterial Blood HCO3 28.0 mmol/L (22.0-26.0) H Arterial Blood Oxygen Saturation 96.4 % (95-100) Arterial Blood Base Excess 2.0 (-2-2) Luis Test Positive Objective HEENT: Atraumatic and normocephalic. Anicteric. Pupils are equal, round, and reactive to light and accommodation, intubated. NECK: JVP cannot be assessed. No carotid bruit. CARDIOVASCULAR: Normal S1, S2. Regular rate and rhythm. No murmurs, gallops, or rubs. PMI is at fourth intercostal space in the midclavicular line. LUNGS: Diminished breath sounds in both lungs. ABDOMEN: Soft, obese. No hepatosplenomegaly. Positive bowel sounds. EXTREMITIES: No evidence of edema, clubbing, or cyanosis. Velasquez Staton MD Dec 29, 2018 19:50
[2018-12-29] MEDS ORDERED: Iron Sucrose 100 MG in NS 55 ML IV ONE (20:00)
--- NOTE | 2018-12-29 20:02 | NUR ---
NURSE NOTES: Patient keeps trying to remove oxygen mask and she is asking for food. Educated patient and verbalized understanding. Patient is impulsive. Will continue plan of care.
--- NOTE | 2018-12-29 20:16 | Pulmonolgy Critical Care Note ---
Critical Care - Asmt/Plan Assessment/Plan: Pulmonary CCM Progress Note HPI Patient is a 58-year-old woman with apparent history of Obstructive Airways Disease, Schizophrenia, Obesity, presented with shortness of breath, increased anxiety. Per ER notes history limited by mental status, being a poor historian. Patient noted to be extremely short of breath requiring intubation in the ED. On mechainical ventilation in the ICU Noted to have elevated ASA level on admission FIO2 reduced , AB per ID S/p extubation today Physical Exam Vital Signs Noted General Appearance: normal inspection, obese, awake Head: NCAT ENT: Moist mm, JVP not visible Neck: normal inspection, full range of motion, supple, no bony tend Respiratory: normal inspection, no respiratory distress, no retraction, no wheezing, reduced basal BS Cardiovascular: regular rate, rhythm, Normal HS1, HS2 Gastrointestinal: normal inspection, normal bowel sounds, non tender, soft, no guarding, no hernia Genitourinary: no CVA tenderness Musculoskeletal: normal inspection, minimal edema Neurologic: no focal signs noted, follows commands Impression: Respiratory failure - sp extubation Previously elevated Salicylate level Pneumonia Possible Congestive Heart Failure Salicylate overdose Schizophrenia/Psychosis Asthma Obesity Plan: Adjust FIO2, BiPAP PRN ID following IV Solumedrol reduced HHN ISS PIECE MARKER SMALL ARMS med PRN Sedation BLE dupplex PPX Keep negative balance ST eval Labs Noted CXR: ETT appropriate, basal infiltrates, vascular congestion Critical Care - Objective Last 24 Hour Vital Signs Date Time Temp Pulse Resp B/P (MAP) Pulse Ox O2 Delivery O2 Flow Rate FiO2 12/29/18 19:49 116 27 99 Cool Aerosol 12.0 40 110 24 99 12/29/18 19:32 99 Cool Aerosol 12.0 40 12/29/18 19:00 111 23 90/72 (78) 98 12/29/18 18:00 106 28 129/68 (88) 95 12/29/18 17:00 83 28 99/64 (76) 94 12/29/18 16:00 98.6 113 24 106/60 (75) 94 12/29/18 16:00 Simple Mask 12.0 12/29/18 16:00 86 12/29/18 15:20 95 Cool Aerosol 12.0 40 12/29/18 15:00 84 29 108/56 (73) 97 12/29/18 14:54 103 19 95 Cool Aerosol 12.0 40 93 25 91 12/29/18 14:54 103 19 95 Cool Aerosol 12.0 40 12/29/18 14:00 99 29 108/55 (72) 100 12/29/18 13:00 100 27 102/47 (65) 100 12/29/18 12:00 98.4 99 26 97/51 (66) 94 12/29/18 12:00 122 12/29/18 12:00 Simple Mask 12.0 12/29/18 11:29 107 22 100 Cool Aerosol 12.0 50 98 27 100 12/29/18 11:00 91 24 105/51 (69) 96 12/29/18 10:00 90 24 100/39 (59) 95 12/29/18 09:20 Venturi Mask 12.0 50 12/29/18 09:00 87 16 105/57 (73) 100 12/29/18 08:33 85 15 50 12/29/18 08:30 89 14 91/52 (65) 98 12/29/18 08:00 98.3 94 24 101/43 (62) 97 12/29/18 08:00 50 12/29/18 08:00 Mechanical Ventilator 12/29/18 08:00 103 12/29/18 07:49 92 12/29/18 07:49 86 16 50 50 12/29/18 07:37 104 24 99 Mechanical Ventilator 50 110 24 50 12/29/18 07:30 24 Mechanical Ventilator 50 12/29/18 07:30 106 24 113/75 (88) 100 12/29/18 07:00 24 Mechanical Ventilator 50 12/29/18 07:00 86 24 106/47 (66) 97 12/29/18 06:30 84 24 118/64 (82) 98 12/29/18 06:00 24 Mechanical Ventilator 50 12/29/18 06:00 87 24 123/60 (81) 98 12/29/18 05:30 86 24 133/73 (93) 99 12/29/18 05:00 24 Mechanical Ventilator 50 12/29/18 05:00 83 24 98/56 (70) 99 12/29/18 04:45 94 24 50 12/29/18 04:30 88 24 123/81 (95) 99 12/29/18 04:00 Mechanical Ventilator 12/29/18 04:00 100 8/28/19 04:00 50 12/29/18 04:00 24 Mechanical Ventilator 50 12/29/18 04:00 98.9 100 24 109/59 (76) 97 12/29/18 03:30 91 24 111/57 (75) 97 12/29/18 03:00 76 24 126/83 (97) 100 12/29/18 03:00 24 Mechanical Ventilator 50 12/29/18 02:52 64 24 97 Mechanical Ventilator 50 64 24 50 12/29/18 02:30 71 24 99/56 (70) 97 12/29/18 02:00 73 24 97/56 (70) 98 12/29/18 02:00 24 Mechanical Ventilator 50 12/29/18 01:30 99.2 12/29/18 01:30 77 24 104/58 (73) 98 12/29/18 01:00 24 Mechanical Ventilator 50 12/29/18 01:00 86 24 112/65 (81) 99 12/29/18 00:59 24 Mechanical Ventilator 50 12/29/18 00:54 95 25 50 12/29/18 00:30 82 24 103/56 (72) 98 12/29/18 00:00 99.2 83 24 107/51 (69) 98 12/29/18 00:00 Mechanical Ventilator 12/29/18 00:00 50 12/29/18 00:00 83 12/29/18 00:00 24 Mechanical Ventilator 50 12/28/18 23:30 84 24 102/50 (67) 99 12/28/18 23:00 24 Mechanical Ventilator 50 12/28/18 23:00 81 24 103/46 (65) 97 12/28/18 22:33 86 24 97 Mechanical Ventilator 50 86 24 50 12/28/18 22:30 72 24 137/81 (99) 96 12/28/18 22:00 76 24 99/54 (69) 98 12/28/18 22:00 24 Mechanical Ventilator 50 12/28/18 22:00 50 12/28/18 21:40 50 12/28/18 21:30 76 24 109/70 (83) 99 12/28/18 21:00 24 Mechanical Ventilator 35 12/28/18 21:00 79 24 108/58 (75) 98 12/28/18 20:50 103 24 35 12/28/18 20:30 77 24 100/50 (67) 96 Accucheck: 146 Critical Care - Subjective ROS Limited/Unobtainable: No FI02: 40 Vent Support Breath Rate: 24 Vent Support Mode: CPAP Vent Tidal Volume: 550 Sputum Amount: None PEEP: 5.0 PIP: 14 Tube Feeding Amount: 40 I&O: Intake and Output 12/28/18 12/29/18 19:00 07:00 Intake Total 696.063 ml 505 ml Output Total 420 ml 360 ml Balance 276.063 ml 145 ml Free Water 190 ml 80 ml IV Total 146.063 ml 145 ml Tube Feeding 360 ml 280 ml Output Urine Total 420 ml 360 ml ET-Tube: 7.0 ET Position: 22 Kevan Monsalve MD Dec 29, 2018 20:16
--- NOTE | 2018-12-29 20:35 | NUR ---
NURSE NOTES: All due meds given. Crushed meds and mixed with apple sauce. Patient was able to swallow without difficulty.
[2018-12-29] MEDS: LORazepam Inj 2mg/ml 1ml IV PRN (20:45)
--- NOTE | 2018-12-29 21:56 | General Progress Note ---
Assessment/Plan Problem List: (1) Opioid dependence ICD Codes: F11.20 - Opioid dependence, uncomplicated SNOMED: 65421808 (2) Altered level of consciousness ICD Codes: R40.4 - Transient alteration of awareness SNOMED: 4922044 (3) Back pain ICD Codes: M54.9 - Dorsalgia, unspecified SNOMED: 426261095 (4) Opiate dependence ICD Codes: F11.20 - Opioid dependence, uncomplicated SNOMED: 06750552 (5) Depression ICD Codes: F32.9 - Major depressive disorder, single episode, unspecified SNOMED: 89357608 (6) Peripheral edema ICD Codes: R60.9 - Edema, unspecified SNOMED: 601449995 (7) Leg pain ICD Codes: M79.606 - Pain in leg, unspecified SNOMED: 40112280 (8) Headache ICD Codes: R51 - Headache SNOMED: 56527606 (9) COPD exacerbation ICD Codes: J44.1 - Chronic obstructive pulmonary disease with (acute) exacerbation SNOMED: 707906091 (10) Psychosis ICD Codes: F29 - Unsp psychosis not due to a substance or known physiol cond SNOMED: 18391887 (11) Respiratory failure ICD Codes: J96.90 - Respiratory failure, unspecified, unspecified whether with hypoxia or hypercapnia SNOMED: 377064315 (12) Salicylate overdose ICD Codes: T39.091A - Poisoning by salicylates, accidental (unintentional), initial encounter SNOMED: 419664217, 5274714 (13) Asthma ICD Codes: J45.909 - Unspecified asthma, uncomplicated SNOMED: 389466365, 3872044 (14) Anemia ICD Codes: D64.9 - Anemia, unspecified SNOMED: 856916645 Status: progressing, unchanged Assessment/Plan: extubated obesity no wheezing s/p o/d afebrile asthma anemia resp failure lytes good reviewed chart and labs Subjective ROS Limited/Unobtainable: Yes Allergies: Coded Allergies: No Known Allergies (Unverified , 11/07/13) Objective Last 24 Hour Vital Signs Date Time Temp Pulse Resp B/P (MAP) Pulse Ox O2 Delivery O2 Flow Rate FiO2 12/29/18 21:00 95 23 112/52 (72) 96 12/29/18 20:00 Simple Mask 12.0 12/29/18 20:00 98.4 120 26 110/75 (87) 12/29/18 19:49 116 27 99 Cool Aerosol 12.0 40 110 24 99 12/29/18 19:32 99 Cool Aerosol 12.0 40 12/29/18 19:00 111 23 90/72 (78) 98 12/29/18 18:00 106 28 129/68 (88) 95 12/29/18 17:00 83 28 99/64 (76) 94 12/29/18 16:00 98.6 113 24 106/60 (75) 94 12/29/18 16:00 Simple Mask 12.0 12/29/18 16:00 86 12/29/18 15:20 95 Cool Aerosol 12.0 40 12/29/18 15:00 84 29 108/56 (73) 97 12/29/18 14:54 103 19 95 Cool Aerosol 12.0 40 93 25 91 12/29/18 14:54 103 19 95 Cool Aerosol 12.0 40 12/29/18 14:00 99 29 108/55 (72) 100 12/29/18 13:00 100 27 102/47 (65) 100 12/29/18 12:00 98.4 99 26 97/51 (66) 94 12/29/18 12:00 122 12/29/18 12:00 Simple Mask 12.0 12/29/18 11:29 107 22 100 Cool Aerosol 12.0 50 98 27 100 12/29/18 11:00 91 24 105/51 (69) 96 12/29/18 10:00 90 24 100/39 (59) 95 12/29/18 09:20 Venturi Mask 12.0 50 12/29/18 09:00 87 16 105/57 (73) 100 12/29/18 08:33 85 15 50 12/29/18 08:30 89 14 91/52 (65) 98 12/29/18 08:00 98.3 94 24 101/43 (62) 97 12/29/18 08:00 50 12/29/18 08:00 Mechanical Ventilator 12/29/18 08:00 103 12/29/18 07:49 92 12/29/18 07:49 86 16 50 50 12/29/18 07:37 104 24 99 Mechanical Ventilator 50 110 24 50 12/29/18 07:30 24 Mechanical Ventilator 50 12/29/18 07:30 106 24 113/75 (88) 100 12/29/18 07:00 24 Mechanical Ventilator 50 12/29/18 07:00 86 24 106/47 (66) 97 12/29/18 06:30 84 24 118/64 (82) 98 12/29/18 06:00 24 Mechanical Ventilator 50 12/29/18 06:00 87 24 123/60 (81) 98 12/29/18 05:30 86 24 133/73 (93) 99 12/29/18 05:00 24 Mechanical Ventilator 50 12/29/18 05:00 83 24 98/56 (70) 99 12/29/18 04:45 94 24 50 12/29/18 04:30 88 24 123/81 (95) 99 12/29/18 04:00 Mechanical Ventilator 12/29/18 04:00 100 12/29/18 04:00 50 12/29/18 04:00 24 Mechanical Ventilator 50 12/29/18 04:00 98.9 100 24 109/59 (76) 97 12/29/18 03:30 91 24 111/57 (75) 97 12/29/18 03:00 76 24 126/83 (97) 100 12/29/18 03:00 24 Mechanical Ventilator 50 12/29/18 02:52 64 24 97 Mechanical Ventilator 50 64 24 50 12/29/18 02:30 71 24 99/56 (70) 97 12/29/18 02:00 73 24 97/56 (70) 98 12/29/18 02:00 24 Mechanical Ventilator 50 12/29/18 01:30 99.2 12/29/18 01:30 77 24 104/58 (73) 98 12/29/18 01:00 24 Mechanical Ventilator 50 12/29/18 01:00 86 24 112/65 (81) 99 12/29/18 00:59 24 Mechanical Ventilator 50 12/29/18 00:54 95 25 50 12/29/18 00:30 82 24 103/56 (72) 98 12/29/18 00:00 99.2 83 24 107/51 (69) 98 12/29/18 00:00 Mechanical Ventilator 12/29/18 00:00 50 12/29/18 00:00 83 12/29/18 00:00 24 Mechanical Ventilator 50 8/27/19 23:30 84 24 102/50 (67) 99 12/28/18 23:00 24 Mechanical Ventilator 50 12/28/18 23:00 81 24 103/46 (65) 97 12/28/18 22:33 86 24 97 Mechanical Ventilator 50 86 24 50 12/28/18 22:30 72 24 137/81 (99) 96 12/28/18 22:00 76 24 99/54 (69) 98 12/28/18 22:00 24 Mechanical Ventilator 50 12/28/18 22:00 50 Intake and Output 12/28/18 12/29/18 19:00 07:00 Intake Total 696.063 ml 505 ml Output Total 420 ml 360 ml Balance 276.063 ml 145 ml Free Water 190 ml 80 ml IV Total 146.063 ml 145 ml Tube Feeding 360 ml 280 ml Output Urine Total 420 ml 360 ml Laboratory Tests 12/29/18 05:00: White Blood Count 16.9H, Red Blood Count 3.68L, Hemoglobin 11.6L, Hematocrit 35.9L, Mean Corpuscular Volume 98, Mean Corpuscular Hemoglobin 31.5H, Mean Corpuscular Hemoglobin Concent 32.3, Red Cell Distribution Width 14.4, Platelet Count 236, Mean Platelet Volume 5.2L, Neutrophils (%) (Auto) 74.8, Lymphocytes ( %) (Auto) 15.0L, Monocytes (%) (Auto) 8.8, Eosinophils (%) (Auto) 0.3, Basophils (%) (Auto) 1.1, Sodium Level 148H, Potassium Level 4.6, Chloride Level 111H, Carbon Dioxide Level 26, Anion Gap 11, Blood Urea Nitrogen 18, Creatinine 1.1, Estimat Glomerular Filtration Rate > 60, Glucose Level 126H, Calcium Level 8.8, Phosphorus Level 3.9, Magnesium Level 2.6H, Total Bilirubin 0.4, Aspartate Amino Transf (AST/SGOT) 39H, Alanine Aminotransferase (ALT/SGPT) 83H, Alkaline Phosphatase 64, Total Protein 6.4, Albumin 2.9L, Globulin 3.5, Albumin/Globulin Ratio 0.8L 12/29/18 08:15: Arterial Blood pH 7.370, Arterial Blood Partial Pressure CO2 49.5H, Arterial Blood Partial Pressure O2 94.6, Arterial Blood HCO3 28.0H, Arterial Blood Oxygen Saturation 96.4, Arterial Blood Base Excess 2.0, Luis Test Positive Height (Feet): 5 Height (Inches): 9.00 Weight (Pounds): 311 Neck: supple Cardiovascular: normal rate Respiratory/Chest: lungs clear Abdomen: soft Jasmine Joe MD Dec 29, 2018 21:56
--- NOTE | 2018-12-29 22:12 | NUR ---
NURSE NOTES: Repositioned patient. Tolerating well with cool aerosol 12L/min.
[2018-12-30] VITALS (24 sets, daily range): BP systolic 94–174; BP diastolic 37–90
--- NOTE | 2018-12-30 00:15 | NUR ---
RESPIRATORY NOTE: Pt placed on BiPAP d/t SOB & pt getting drowsy, desaturating. Pt now on BiPAP /, backup rate 14, 60%. Pt on a facial mask, skin intact, no redness/breakdowns noted. Foam tape applied on pt's nosebridge/cheeks/chin to prevent any irritations. Pt still arousable, but drowsy. B/S sherry. diminished. BiPAP plugged into red outlet, alarms on & audible. Pt tolerating well. Will continue to monitor pt.
--- NOTE | 2018-12-30 00:15 | NUR ---
NURSE NOTES: Patient has episode of desat 84-89% with cool aerosol 40%. Called RT and put on bipap with 13/6 60%. O2 Sat 94% on the monitor. Will continue to monitor.
--- NOTE | 2018-12-30 02:05 | NUR ---
NURSE NOTES: Repositioned patient. No change in condition.
[2018-12-30] MEDS: Acetylcysteine 20% Soln 4ml HHN SCH ×5 (03:08→20:48)
[2018-12-30] MEDS: Albuterol/Ipratropium 3ml neb HHN SCH ×5 (03:08→20:48)
--- NOTE | 2018-12-30 03:18 | NUR ---
RESPIRATORY NOTE: PT RECEIVED STABLE ON BIPAP 14/10, RATE OF 12, 40% FIO2. ALARMS ARE ON AND AUDIBLE. VENT CIRCUIT AND BIPAP MASK ARE SECURE AND OUT OF THE WAY. PT IS TACHYPNEIC BUT NOT LABORED. VS WNL. WILL CONTINUE TO MONITOR. ADDITIONAL NOTE: A DOUBLE DOSE OF MUCOMYST HAD TO BE PULLED FROM THE PYXIS BECAUSE FIRST DOSE WAS ACCIDENTALLY DROPPED. RESIDENTIAL CASE MANAGER KADE NOTIFIED. PHARMACY NOTIFIED.
--- NOTE | 2018-12-30 04:00 | NUR ---
NURSE NOTES: Bed bath given.
--- NOTE | 2018-12-30 05:00 | NUR ---
NURSE NOTES: Bipap setting changed by RT. FiO2 60% to 40%.
[2018-12-30 05:09] LABS: BASOPHILS % (AUTO) 1.5 % (0.0-2.0); EOSINOPHILS % (AUTO) 0.1 % (0.0-3.0); HEMATOCRIT 38.8 % (37.0-47.0); HEMOGLOBIN 12.2 G/DL (12.0-16.0); LYMPHOCYTES % (AUTO) 23.2 % (20.0-45.0); MEAN CORPUSCULAR VOLUME 99 FL (80-99); MONOCYTES % (AUTO) 8.5 % (1.0-10.0); NEUTROPHILS % (AUTO) 66.7 % (45.0-75.0); PLATELET COUNT 231 K/UL (150-450); RED BLOOD COUNT 3.94 M/UL (4.20-5.40); RED CELL DISTRIBUTION WIDTH 14.4 % (11.6-14.8); WHITE BLOOD COUNT 14.3 K/UL (4.8-10.8)
[2018-12-30 05:20] LABS: ANION GAP 6 mmol/L (5-15); BLOOD UREA NITROGEN 15 mg/dL (7-18); CALCIUM 8.6 MG/DL (8.5-10.1); CARBON DIOXIDE 29 MMOL/L (21-32); CHLORIDE 110 MMOL/L (98-107); CREATININE 0.9 MG/DL (0.55-1.30); POTASSIUM 4.6 MMOL/L (3.5-5.1); SODIUM 145 MMOL/L (136-145)
--- NOTE | 2018-12-30 05:45 | Progress Note ---
DATE: 12/29/2018 SUBJECTIVE: The patient continues to be in ICU. The patient is status post overdosed. The patient is extubated now. At this time, the patient's medication is by mouth. Easily gets agitated and needs frequent redirection throughout the day. The patient stated that this was a suicide attempt. MENTAL STATUS EXAMINATION: The patient is alert and oriented to time, self, and place. Mood is agitated. Affect is flat. Thought process, there is a paucity of thought content. Thought content, no suicidal or homicidal ideation. Cognition is impaired. Insight and judgment are impaired. ASSESSMENT: Acute encephalopathy, status post overdose. PLAN: 1. We will continue the current medication. 2. We will continue to follow and readjust the medications. Laurie Canchola M.D. DR: SULAIMAN JOB#: [id number] CC:
[2018-12-30] MEDS: NovoLOG Insulin Flexpen SUBQ SCH ×4 (05:50→17:22)
[2018-12-30] MEDS: LORazepam Inj 2mg/ml 1ml IV PRN ×2 (05:50→10:16)
--- NOTE | 2018-12-30 05:55 | NUR ---
NURSE NOTES: Patient noted with agitation, Trying to remove bipap. Ativan given as ordered.
--- NOTE | 2018-12-30 07:25 | NUR ---
HAND-OFF: Report given to CLARENCE Farmer. Endorsed plan of care.
--- NOTE | 2018-12-30 07:26 | NUR ---
NURSE NOTES: RECEIVED PATIENT FROM Reid DENNISON RN. PATIENT IS SEEN LYING IN BED, AWAKE AND CONFUSED. HOOKED TO MANAGER COMMUNICATION. HR OF 90. ON BIPAP 14/10, FiO2 40%. NO SIGNS OF DISTRESS OF THE MOMENT. NPO FOR NOW. GOOD CONNECTED TO BAG, PATENT AND DRAINING URINE. IV'S ON L W AND L AC G20 WITH IVF RUNNING D5 1/2 NS AT 40ML/HR. CALL LIGHT WITHIN REACH. SIDE RAILS UP. BED AT LOWEST POSITION. WILL CONTINUE TO MONITOR.
--- NOTE | 2018-12-30 07:30 | NUR ---
RESPIRATORY NOTE: received pt on bipap on current orders. no resp distress noted, but pt slightly tachypneic. o2 saturation WNL. will attempt to remove pt off bipap and cont to monitor. Addendum: 12/30/18 at 0742 by TRIPP RUST RT pt off bipap. placed on 2L NC with etco2 attached to monitor. RN notified.
--- NOTE | 2018-12-30 08:00 | NUR ---
NURSE NOTES: PATIENT PLACED ON 2L NC. SATING BETWEEN 96-100%. NO SIGNS OF DISTRESS OF THE MOMENT. WILL FOLLOW PLAN OF CARE.
[2018-12-30] MEDS: Docusate 100mg tablet NG SCH (09:01)
[2018-12-30] MEDS: Doxycycline Monohydrate 100mg NG SCH (09:01)
[2018-12-30] MEDS: Solu-MEDROL 40mg Inj IVP SCH (09:01)
[2018-12-30] MEDS: Haloperidol 5mg/ml Inj IM PRN (09:01)
[2018-12-30] MEDS: Pantoprazole Inj IVP SCH ×2 (09:01→21:21)
--- NOTE | 2018-12-30 09:09 | NUR ---
NURSE NOTES: PATIENT NOTED TO BE TACHYPNEIC. HALDOL IM WAS GIVEN DUE TO RESTLESSNESS. WILL CONTINUE TO MONITOR.
--- NOTE | 2018-12-30 10:03 | Infectious Diseases Prog Note ---
Assessment/Plan Assessment/Plan IMPRESSION: Sepsis or systemic inflammatory response syndrome, COPD, Hypercapnic respiratory failure, s Salicylate toxicity, Morbid obesity. Leukocytosis improving Positive Urine culture, colonization RECOMMENDATION: Continue Doxycycline Sputum culture: normal aniyah& Staph aureus Taper steroids. Subjective ROS Limited/Unobtainable: Yes Psychiatric: Reports: other - agitated Allergies: Coded Allergies: No Known Allergies (Unverified , 11/07/13) Objective Vital Signs Last 24 Hour Vital Signs Date Time Temp Pulse Resp B/P (MAP) Pulse Ox O2 Delivery O2 Flow Rate FiO2 12/30/18 09:00 96 25 138/72 (94) 96 12/30/18 08:00 98.9 86 29 121/62 (81) 98 12/30/18 08:00 2.0 12/30/18 07:40 2.0 12/30/18 07:28 96 Bi-Pap 40 12/30/18 07:25 114 38 97 Bi-Pap 40 113 36 95 12/30/18 07:00 118 35 139/74 (95) 96 12/30/18 06:00 102 31 107/78 (88) 95 12/30/18 05:00 117 28 115/58 (77) 95 12/30/18 05:00 40 12/30/18 04:53 108 32 98 Facial 40 12/30/18 04:00 99.2 98 28 135/71 (92) 95 12/30/18 04:00 Simple Mask 12.0 12/30/18 04:00 60 12/30/18 04:00 84 12/30/18 03:18 94 21 97 Facial 60 98 24 97 Bi-Pap 60 12/30/18 03:08 Bi-Pap 60 12/30/18 03:00 91 21 94/37 (56) 96 12/30/18 02:00 90 23 114/68 (83) 98 12/30/18 01:11 102 24 96 Facial 60 12/30/18 01:00 106 23 108/73 (85) 97 12/30/18 00:15 60 12/30/18 00:12 110 28 93 Facial 60 12/30/18 00:00 98.4 98 24 144/74 (97) 86 12/30/18 00:00 Simple Mask 12.0 12/30/18 00:00 77 12/29/18 23:40 79 22 98 Cool Aerosol 12.0 40 71 21 95 12/29/18 23:00 78 21 97/44 (61) 95 12/29/18 22:00 79 20 84/53 (63) 96 12/29/18 21:00 95 23 112/52 (72) 96 12/29/18 20:00 Simple Mask 12.0 12/29/18 20:00 108 12/29/18 20:00 98.4 120 26 110/75 (87) 12/29/18 19:49 116 27 99 Cool Aerosol 12.0 40 110 24 99 12/29/18 19:32 99 Cool Aerosol 12.0 40 12/29/18 19:00 111 23 90/72 (78) 98 12/29/18 18:00 106 28 129/68 (88) 95 12/29/18 17:00 83 28 99/64 (76) 94 12/29/18 16:00 98.6 113 24 106/60 (75) 94 12/29/18 16:00 Simple Mask 12.0 12/29/18 16:00 86 12/29/18 15:20 95 Cool Aerosol 12.0 40 12/29/18 15:00 84 29 108/56 (73) 97 12/29/18 14:54 103 19 95 Cool Aerosol 12.0 40 93 25 91 12/29/18 14:54 103 19 95 Cool Aerosol 12.0 40 12/29/18 14:00 99 29 108/55 (72) 100 12/29/18 13:00 100 27 102/47 (65) 100 12/29/18 12:00 98.4 99 26 97/51 (66) 94 12/29/18 12:00 122 12/29/18 12:00 Simple Mask 12.0 12/29/18 11:29 107 22 100 Cool Aerosol 12.0 50 98 27 100 12/29/18 11:00 91 24 105/51 (69) 96 12/29/18 10:00 90 24 100/39 (59) 95 Height (Feet): 5 Height (Inches): 9.00 Weight (Pounds): 298 HEENT: mucous membranes moist Respiratory/Chest: decreased breath sounds, other - on BIPAP Cardiovascular: normal rate Abdomen: soft, non tender Extremities: other - mild edema Neurologic/Psychiatric: alert, responsive Laboratory Tests Test 12/30/18 03:50 White Blood Count 14.3 K/UL (4.8-10.8) H Red Blood Count 3.94 M/UL (4.20-5.40) L Hemoglobin 12.2 G/DL (12.0-16.0) Hematocrit 38.8 % (37.0-47.0) Mean Corpuscular Volume 99 FL (80-99) Mean Corpuscular Hemoglobin 30.9 PG (27.0-31.0) Mean Corpuscular Hemoglobin Concent 31.3 G/DL (32.0-36.0) L Red Cell Distribution Width 14.4 % (11.6-14.8) Platelet Count 231 K/UL (150-450) Mean Platelet Volume 5.1 FL (6.5-10.1) L Neutrophils (%) (Auto) 66.7 % (45.0-75.0) Lymphocytes (%) (Auto) 23.2 % (20.0-45.0) Monocytes (%) (Auto) 8.5 % (1.0-10.0) Eosinophils (%) (Auto) 0.1 % (0.0-3.0) Basophils (%) (Auto) 1.5 % (0.0-2.0) Sodium Level 145 MMOL/L (136-145) Potassium Level 4.6 MMOL/L (3.5-5.1) Chloride Level 110 MMOL/L (98-107) H Carbon Dioxide Level 29 MMOL/L (21-32) Anion Gap 6 mmol/L (5-15) Blood Urea Nitrogen 15 mg/dL (7-18) Creatinine 0.9 MG/DL (0.55-1.30) Estimat Glomerular Filtration Rate > 60 mL/min (>60) Glucose Level 99 MG/DL (74-106) Calcium Level 8.6 MG/DL (8.5-10.1) Current Medications Medications (Trade) Dose Ordered Sig/Amaya Route PRN Reason Start Time Stop Time Status Last Admin Dose Admin Acetaminophen (Tylenol) 650 mg Q4HR PRN NG FOR TEMP >100.5 12/23/18 07:30 01/22/19 07:29 12/25/18 17:13 Acetylcysteine (Mucomyst) 200 mg Q4HRT HHN 12/24/18 23:00 01/23/19 12:59 12/30/18 07:25 Albuterol/ Ipratropium (Albuterol/ Ipratropium) 3 ml Q4HRT HHN 12/26/18 19:45 12/31/18 19:44 12/30/18 07:25 Clonidine HCl (Catapres Tab) 0.1 mg Q6H PRN NG For High Blood Pressure 12/26/18 15:00 01/25/19 14:59 Dextrose (Dextrose 50%) 25 ml Q30M PRN IV Hypoglycemia 12/21/18 17:00 01/20/19 16:59 Dextrose (Dextrose 50%) 50 ml Q30M PRN IV Hypoglycemia 12/21/18 17:00 01/20/19 16:59 Dextrose/Sodium Chloride 1,000 ml @ 40 mls/hr Q24H IV 12/29/18 15:45 01/28/19 15:44 12/29/18 16:04 Docusate Sodium (Colace) 100 mg Q12HR NG 12/28/18 21:00 01/27/19 20:59 12/30/18 09:01 Doxycycline Monohydrate (Doxycycline Monohydrate) 100 mg EVERY 12 HOURS NG 12/27/18 13:30 01/03/19 13:29 12/30/18 09:01 Haloperidol Lactate (Haldol) 5 mg Q6H PRN IM Agitation 12/24/18 00:30 01/23/19 00:29 12/30/18 09:01 Insulin Aspart (NovoLOG) EVERY 6 HOURS SUBQ 12/21/18 18:00 01/20/19 17:59 12/29/18 17:56 Lorazepam (Ativan 2mg/ml 1ml) 1 mg Q2H PRN IV For Anxiety 12/28/18 17:43 01/04/19 17:42 12/30/18 05:50 Methylprednisolone Sodium Succinate (Solu-MEDROL) 40 mg DAILY IVP 12/29/18 09:00 01/28/19 08:59 12/30/18 09:01 Pantoprazole (Protonix) 40 mg EVERY 12 HOURS IVP 12/22/18 11:00 01/21/19 10:59 12/30/18 09:01 Polyethylene Glycol (Miralax) 17 gm DAILYPRN PRN NG Constipation 12/28/18 10:30 01/27/19 10:29 12/29/18 08:20 Quetiapine Fumarate (SEROquel) 25 mg Q6H PRN NG Agitation 12/28/18 10:45 01/20/19 12:29 Nikos Martinez MD Dec 30, 2018 10:03
--- NOTE | 2018-12-30 10:17 | NUR ---
NURSE NOTES: PATIENT NOTED TO BE RESTLESS. ATIVAN WAS GIVEN. NOTED PULLING THE BIPAP AND TRYING TO GET OUT OF THE BED. WILL CONTINUE TO MONITOR.
--- NOTE | 2018-12-30 10:29 | NUR ---
RD ASSESSMENT & RECOMMENDATIONS SEE CARE ACTIVITY FOR COMPLETE ASSESSMENT DAILY ESTIMATED NEEDS: Needs based on Pulmonary, morbidly obese 11-14 kcal/ kg actual body wt (143kg) kcals/kg [id number] total kcals 1.5-1.8 IBW (66kg) g protein/kg 99-119 g total protein Fluid per MD NUTRITION DIAGNOSIS: Swallowing difficulty R/T respiratory status as evidenced by orally intubated and sedated, now w/p extubation, NPO, pending RETIREMENT SPECIALIST eval. PO DIET RECOMMENDATIONS: POST EXTUBATION-> CCHO LOW, CARDIAC/ texture per RETIREMENT SPECIALIST or as tolerated ADDITIONAL RECOMMENDATIONS: * CALIBRATED bedscale wt for accurate CBW * Monitor lytes daily, replete as needed * Monitor BGs closely while on Solumedrol * RETIREMENT SPECIALIST eval prior to oral diet (s/p extubation)
--- NOTE | 2018-12-30 10:30 | NUR ---
NURSE NOTES: SEEN AND EXAMINED BY DR RAI. INFORMED OF THE URINE OUTPUT 10-30ML/HR. NNO. WILL CONTINUE TO MONITOR.
--- NOTE | 2018-12-30 10:37 | Hematology/Onc Progress Note ---
Assessment/Plan Assessment/Plan Assessment and Recs: # Anemia of iron deficiency with decreased ferritin --> No evidence of hemolysis is noted, peripheral smear has been reviewed. --> Hgb goal >7. Transfuse prn. --> Iron has been ordered x 1 dose given stable hgb --> Medications have been reviewed --> low threshold for gi evaluation in case has occult + --> hgb trend 11.6-->12.2 # Leukocytosis is likely due to steriods --> monitor steriod use --> accuchecks qac and qhs --> insulin as needed prn --> on ctx/doxy per id prn --> wbc 12-->15->17-->18-->14.3 # Salicylate overdose now improved --> Medical management for salicylate overdose --> Sodium bicarbonate --> IVF started, as per renal --> now improved # Electrolyte correction --> replace k prn basis # Resp failure --> 12/29 extubated on nc The timing of this note does not necessarily reflect the time of the patient was seen. GREATLY APPRECIATE CONSULTATION. Subjective Allergies: Coded Allergies: No Known Allergies (Unverified , 11/07/13) Subjective 12/23: no events, no bleeding reported, tf held for potential extubation 12/24: icu, trach, agitated and confused, labs reviewed, abx, fentanyl 12/26: no bleeding, no chills, still on abx, fentayl, labs reviewed 12/27: dox and ctx, no bleeding sputum cultures reviewed 12/29: turned, repositioned, remains npo, labs noted 12/30: icu, restless, on abx, no signs of distress, labs reviewed, no fever Objective Objective Current Medications Medications (Trade) Dose Ordered Sig/Amaya Route PRN Reason Start Time Stop Time Status Last Admin Dose Admin Acetaminophen (Tylenol) 650 mg Q4HR PRN NG FOR TEMP >100.5 12/23/18 07:30 01/22/19 07:29 12/25/18 17:13 Acetylcysteine (Mucomyst) 200 mg Q4HRT HHN 12/24/18 23:00 01/23/19 12:59 12/30/18 07:25 Albuterol/ Ipratropium (Albuterol/ Ipratropium) 3 ml Q4HRT HHN 12/26/18 19:45 12/31/18 19:44 12/30/18 07:25 Clonidine HCl (Catapres Tab) 0.1 mg Q6H PRN NG For High Blood Pressure 12/26/18 15:00 01/25/19 14:59 Dextrose (Dextrose 50%) 25 ml Q30M PRN IV Hypoglycemia 12/21/18 17:00 01/20/19 16:59 Dextrose (Dextrose 50%) 50 ml Q30M PRN IV Hypoglycemia 12/21/18 17:00 01/20/19 16:59 Dextrose/Sodium Chloride 1,000 ml @ 40 mls/hr Q24H IV 12/29/18 15:45 01/28/19 15:44 12/29/18 16:04 Docusate Sodium (Colace) 100 mg Q12HR NG 12/28/18 21:00 01/27/19 20:59 12/30/18 09:01 Doxycycline Monohydrate (Doxycycline Monohydrate) 100 mg EVERY 12 HOURS NG 12/27/18 13:30 01/03/19 13:29 12/30/18 09:01 Haloperidol Lactate (Haldol) 5 mg Q6H PRN IM Agitation 12/24/18 00:30 01/23/19 00:29 12/30/18 09:01 Insulin Aspart (NovoLOG) EVERY 6 HOURS SUBQ 12/21/18 18:00 01/20/19 17:59 12/29/18 17:56 Lorazepam (Ativan 2mg/ml 1ml) 1 mg Q2H PRN IV For Anxiety 12/28/18 17:43 01/04/19 17:42 12/30/18 10:16 Methylprednisolone Sodium Succinate (Solu-MEDROL) 40 mg DAILY IVP 12/29/18 09:00 01/28/19 08:59 12/30/18 09:01 Pantoprazole (Protonix) 40 mg EVERY 12 HOURS IVP 12/22/18 11:00 01/21/19 10:59 12/30/18 09:01 Polyethylene Glycol (Miralax) 17 gm DAILYPRN PRN NG Constipation 12/28/18 10:30 01/27/19 10:29 12/29/18 08:20 Quetiapine Fumarate (SEROquel) 25 mg Q6H PRN NG Agitation 12/28/18 10:45 01/20/19 12:29 Last 24 Hour Vital Signs Date Time Temp Pulse Resp B/P (MAP) Pulse Ox O2 Delivery O2 Flow Rate FiO2 12/30/18 10:00 126 30 166/82 (110) 96 12/30/18 09:00 96 25 138/72 (94) 96 12/30/18 08:00 98.9 86 29 121/62 (81) 98 12/30/18 08:00 2.0 12/30/18 07:40 2.0 12/30/18 07:28 96 Bi-Pap 40 12/30/18 07:25 114 38 97 Bi-Pap 40 113 36 95 12/30/18 07:00 118 35 139/74 (95) 96 12/30/18 06:00 102 31 107/78 (88) 95 12/30/18 05:00 117 28 115/58 (77) 95 12/30/18 05:00 40 12/30/18 04:53 108 32 98 Facial 40 12/30/18 04:00 99.2 98 28 135/71 (92) 95 12/30/18 04:00 Simple Mask 12.0 12/30/18 04:00 60 12/30/18 04:00 84 12/30/18 03:18 94 21 97 Facial 60 98 24 97 Bi-Pap 60 12/30/18 03:08 Bi-Pap 60 12/30/18 03:00 91 21 94/37 (56) 96 12/30/18 02:00 90 23 114/68 (83) 98 12/30/18 01:11 102 24 96 Facial 60 12/30/18 01:00 106 23 108/73 (85) 97 12/30/18 00:15 60 12/30/18 00:12 110 28 93 Facial 60 12/30/18 00:00 98.4 98 24 144/74 (97) 86 12/30/18 00:00 Simple Mask 12.0 12/30/18 00:00 77 12/29/18 23:40 79 22 98 Cool Aerosol 12.0 40 71 21 95 12/29/18 23:00 78 21 97/44 (61) 95 12/29/18 22:00 79 20 84/53 (63) 96 12/29/18 21:00 95 23 112/52 (72) 96 12/29/18 20:00 Simple Mask 12.0 12/29/18 20:00 108 12/29/18 20:00 98.4 120 26 110/75 (87) 12/29/18 19:49 116 27 99 Cool Aerosol 12.0 40 110 24 99 12/29/18 19:32 99 Cool Aerosol 12.0 40 12/29/18 19:00 111 23 90/72 (78) 98 12/29/18 18:00 106 28 129/68 (88) 95 12/29/18 17:00 83 28 99/64 (76) 94 12/29/18 16:00 98.6 113 24 106/60 (75) 94 12/29/18 16:00 Simple Mask 12.0 12/29/18 16:00 86 12/29/18 15:20 95 Cool Aerosol 12.0 40 12/29/18 15:00 84 29 108/56 (73) 97 12/29/18 14:54 103 19 95 Cool Aerosol 12.0 40 93 25 91 12/29/18 14:54 103 19 95 Cool Aerosol 12.0 40 12/29/18 14:00 99 29 108/55 (72) 100 12/29/18 13:00 100 27 102/47 (65) 100 12/29/18 12:00 98.4 99 26 97/51 (66) 94 12/29/18 12:00 122 12/29/18 12:00 Simple Mask 12.0 12/29/18 11:29 107 22 100 Cool Aerosol 12.0 50 98 27 100 12/29/18 11:00 91 24 105/51 (69) 96 12/29/18 10:00 90 24 100/39 (59) 95 12/29/18 09:20 Venturi Mask 12.0 50 12/29/18 09:00 87 16 105/57 (73) 100 12/29/18 08:33 85 15 50 12/29/18 08:30 89 14 91/52 (65) 98 12/29/18 08:00 98.3 94 24 101/43 (62) 97 12/29/18 08:00 50 12/29/18 08:00 Mechanical Ventilator 12/29/18 08:00 103 12/29/18 07:49 92 12/29/18 07:49 86 16 50 50 12/29/18 07:37 104 24 99 Mechanical Ventilator 50 110 24 50 12/29/18 07:30 24 Mechanical Ventilator 50 12/29/18 07:30 106 24 113/75 (88) 100 12/29/18 07:00 24 Mechanical Ventilator 50 12/29/18 07:00 86 24 106/47 (66) 97 12/29/18 06:30 84 24 118/64 (82) 98 12/29/18 06:00 24 Mechanical Ventilator 50 12/29/18 06:00 87 24 123/60 (81) 98 12/29/18 05:30 86 24 133/73 (93) 99 12/29/18 05:00 24 Mechanical Ventilator 50 12/29/18 05:00 83 24 98/56 (70) 99 12/29/18 04:45 94 24 50 12/29/18 04:30 88 24 123/81 (95) 99 12/29/18 04:00 Mechanical Ventilator 12/29/18 04:00 100 12/29/18 04:00 50 12/29/18 04:00 24 Mechanical Ventilator 50 12/29/18 04:00 98.9 100 24 109/59 (76) 97 12/29/18 03:30 91 24 111/57 (75) 97 12/29/18 03:00 76 24 126/83 (97) 100 12/29/18 03:00 24 Mechanical Ventilator 50 12/29/18 02:52 64 24 97 Mechanical Ventilator 50 64 24 50 12/29/18 02:30 71 24 99/56 (70) 97 12/29/18 02:00 73 24 97/56 (70) 98 12/29/18 02:00 24 Mechanical Ventilator 50 12/29/18 01:30 99.2 12/29/18 01:30 77 24 104/58 (73) 98 12/29/18 01:00 24 Mechanical Ventilator 50 12/29/18 01:00 86 24 112/65 (81) 99 12/29/18 00:59 24 Mechanical Ventilator 50 12/29/18 00:54 95 25 50 12/29/18 00:30 82 24 103/56 (72) 98 12/29/18 00:00 99.2 83 24 107/51 (69) 98 8/28/19 00:00 Mechanical Ventilator 12/29/18 00:00 50 12/29/18 00:00 83 12/29/18 00:00 24 Mechanical Ventilator 50 12/28/18 23:30 84 24 102/50 (67) 99 12/28/18 23:00 24 Mechanical Ventilator 50 12/28/18 23:00 81 24 103/46 (65) 97 12/28/18 22:33 86 24 97 Mechanical Ventilator 50 86 24 50 12/28/18 22:30 72 24 137/81 (99) 96 12/28/18 22:00 76 24 99/54 (69) 98 12/28/18 22:00 24 Mechanical Ventilator 50 12/28/18 22:00 50 12/28/18 21:40 50 12/28/18 21:30 76 24 109/70 (83) 99 12/28/18 21:00 24 Mechanical Ventilator 35 12/28/18 21:00 79 24 108/58 (75) 98 12/28/18 20:50 103 24 35 12/28/18 20:30 77 24 100/50 (67) 96 12/28/18 20:00 Mechanical Ventilator 12/28/18 20:00 99.3 84 24 92/41 (58) 97 12/28/18 20:00 24 Mechanical Ventilator 35 12/28/18 20:00 84 12/28/18 20:00 35 12/28/18 19:30 100 24 96/41 (59) 96 12/28/18 19:00 97 25 127/63 (84) 97 12/28/18 19:00 24 Mechanical Ventilator 35 12/28/18 18:52 80 24 95 Mechanical Ventilator 35 80 24 35 12/28/18 18:45 80 24 107/60 (76) 95 12/28/18 18:30 81 24 104/64 (77) 96 12/28/18 18:30 24 Mechanical Ventilator 35 12/28/18 18:20 24 Mechanical Ventilator 35 12/28/18 18:15 86 24 113/57 (75) 97 12/28/18 18:10 24 Mechanical Ventilator 35 12/28/18 18:05 24 Mechanical Ventilator 35 12/28/18 18:00 24 Mechanical Ventilator 35 12/28/18 18:00 86 24 119/76 (90) 96 12/28/18 17:55 24 Mechanical Ventilator 35 12/28/18 17:50 24 Mechanical Ventilator 35 12/28/18 17:45 24 Mechanical Ventilator 35 12/28/18 17:45 89 24 116/66 (83) 97 12/28/18 17:40 24 Mechanical Ventilator 35 12/28/18 17:35 24 Mechanical Ventilator 35 12/28/18 17:30 104 24 131/75 (93) 97 12/28/18 17:30 24 Mechanical Ventilator 35 12/28/18 17:25 24 Mechanical Ventilator 35 12/28/18 17:20 24 Mechanical Ventilator 35 12/28/18 17:15 105 24 133/105 (114) 97 12/28/18 17:15 24 Mechanical Ventilator 35 12/28/18 17:10 24 Mechanical Ventilator 35 12/28/18 17:09 108 24 Mechanical Ventilator 35 12/28/18 17:05 24 Mechanical Ventilator 35 12/28/18 17:00 102 24 114/66 (82) 97 12/28/18 17:00 24 Mechanical Ventilator 35 12/28/18 16:55 24 Mechanical Ventilator 35 12/28/18 16:50 24 Mechanical Ventilator 35 12/28/18 16:45 24 Mechanical Ventilator 35 12/28/18 16:45 108 24 113/62 (79) 96 12/28/18 16:40 24 Mechanical Ventilator 35 12/28/18 16:35 24 Mechanical Ventilator 35 12/28/18 16:30 24 Mechanical Ventilator 35 12/28/18 16:30 99 24 131/74 (93) 96 12/28/18 16:25 24 Mechanical Ventilator 35 12/28/18 16:20 24 Mechanical Ventilator 35 12/28/18 16:15 24 Mechanical Ventilator 35 12/28/18 16:10 24 Mechanical Ventilator 35 12/28/18 16:00 98 12/28/18 16:00 40 12/28/18 16:00 99.0 103 24 127/61 (83) 95 12/28/18 16:00 Mechanical Ventilator 12/28/18 15:45 107 24 149/85 (106) 96 12/28/18 15:30 101 24 112/82 (92) 98 12/28/18 15:00 85 24 99/52 (68) 96 12/28/18 14:45 24 Mechanical Ventilator 40 12/28/18 14:45 98 24 85/48 (60) 100 12/28/18 14:42 105 24 100 Mechanical Ventilator 35 105 24 35 12/28/18 14:30 84 24 107/51 (69) 94 12/28/18 14:20 86 24 92/51 (65) 99 12/28/18 14:15 87 24 89/50 (63) 94 12/28/18 14:00 24 Mechanical Ventilator 40 12/28/18 14:00 91 24 94/49 (64) 94 12/28/18 13:30 107 24 97/49 (65) 94 12/28/18 13:08 87 24 Mechanical Ventilator 40 12/28/18 13:00 93 24 98/59 (72) 94 12/28/18 13:00 24 Mechanical Ventilator 40 12/28/18 12:45 96 24 110/54 (72) 95 12/28/18 12:30 89 24 103/59 (74) 95 12/28/18 12:30 24 Mechanical Ventilator 40 12/28/18 12:20 24 Mechanical Ventilator 40 12/28/18 12:15 85 24 111/67 (82) 95 12/28/18 12:10 24 Mechanical Ventilator 40 12/28/18 12:00 Mechanical Ventilator 12/28/18 12:00 40 12/28/18 12:00 92 12/28/18 12:00 24 Mechanical Ventilator 40 12/28/18 12:00 98.7 95 24 128/78 (95) 98 12/28/18 11:50 24 Mechanical Ventilator 40 12/28/18 11:42 76 24 97 Mechanical Ventilator 40 78 24 40 12/28/18 11:40 24 Mechanical Ventilator 40 12/28/18 11:30 81 24 101/49 (66) 97 12/28/18 11:30 24 Mechanical Ventilator 40 12/28/18 11:20 24 Mechanical Ventilator 40 12/28/18 11:15 85 24 103/54 (70) 98 12/28/18 11:10 24 Mechanical Ventilator 40 12/28/18 11:00 86 24 126/78 (94) 98 12/28/18 11:00 24 Mechanical Ventilator 40 12/28/18 10:50 24 Mechanical Ventilator 40 12/28/18 10:45 102 24 118/68 (85) 98 12/28/18 10:40 24 Mechanical Ventilator 40 Intake and Output 12/29/18 12/30/18 19:00 07:00 Intake Total 219.8 ml 540 ml Output Total 455 ml 510 ml Balance -235.2 ml 30 ml Free Water 100 ml IV Total 119.8 ml 540 ml Output Urine Total 455 ml 510 ml Labs Test 12/28/18 09:00 12/29/18 05:00 12/29/18 08:15 12/30/18 03:50 White Blood Count 19.0 K/UL (4.8-10.8) 16.9 K/UL (4.8-10.8) 14.3 K/UL (4.8-10.8) Red Blood Count 3.93 M/UL (4.20-5.40) 3.68 M/UL (4.20-5.40) 3.94 M/UL (4.20-5.40) Hemoglobin 12.2 G/DL (12.0-16.0) 11.6 G/DL (12.0-16.0) 12.2 G/DL (12.0-16.0) Hematocrit 38.2 % (37.0-47.0) 35.9 % (37.0-47.0) 38.8 % (37.0-47.0) Mean Corpuscular Volume 97 FL (80-99) 98 FL (80-99) 99 FL (80-99) Mean Corpuscular Hemoglobin 31.0 PG (27.0-31.0) 31.5 PG (27.0-31.0) 30.9 PG (27.0-31.0) Mean Corpuscular Hemoglobin Concent 31.9 G/DL (32.0-36.0) 32.3 G/DL (32.0-36.0) 31.3 G/DL (32.0-36.0) Red Cell Distribution Width 14.8 % (11.6-14.8) 14.4 % (11.6-14.8) 14.4 % (11.6-14.8) Platelet Count 247 K/UL (150-450) 236 K/UL (150-450) 231 K/UL (150-450) Mean Platelet Volume 4.5 FL (6.5-10.1) 5.2 FL (6.5-10.1) 5.1 FL (6.5-10.1) Neutrophils (%) (Auto) % (45.0-75.0) 74.8 % (45.0-75.0) 66.7 % (45.0-75.0) Lymphocytes (%) (Auto) % (20.0-45.0) 15.0 % (20.0-45.0) 23.2 % (20.0-45.0) Monocytes (%) (Auto) % (1.0-10.0) 8.8 % (1.0-10.0) 8.5 % (1.0-10.0) Eosinophils (%) (Auto) % (0.0-3.0) 0.3 % (0.0-3.0) 0.1 % (0.0-3.0) Basophils (%) (Auto) % (0.0-2.0) 1.1 % (0.0-2.0) 1.5 % (0.0-2.0) Differential Total Cells Counted 100 Neutrophils % (Manual) 77 % (45-75) Lymphocytes % (Manual) 14 % (20-45) Monocytes % (Manual) 9 % (1-10) Eosinophils % (Manual) 0 % (0-3) Basophils % (Manual) 0 % (0-2) Band Neutrophils 0 % (0-8) Nucleated Red Blood Cells 1 /100 WBC Platelet Estimate Adequate Platelet Morphology Normal Sodium Level 147 MMOL/L (136-145) 148 MMOL/L (136-145) 145 MMOL/L (136-145) Potassium Level 4.5 MMOL/L (3.5-5.1) 4.6 MMOL/L (3.5-5.1) 4.6 MMOL/L (3.5-5.1) Chloride Level 110 MMOL/L (98-107) 111 MMOL/L (98-107) 110 MMOL/L (98-107) Carbon Dioxide Level 26 MMOL/L (21-32) 26 MMOL/L (21-32) 29 MMOL/L (21-32) Anion Gap 11 mmol/L (5-15) 11 mmol/L (5-15) 6 mmol/L (5-15) Blood Urea Nitrogen 20 mg/dL (7-18) 18 mg/dL (7-18) 15 mg/dL (7-18) Creatinine 1.0 MG/DL (0.55-1.30) 1.1 MG/DL (0.55-1.30) 0.9 MG/DL (0.55-1.30) Estimat Glomerular Filtration Rate > 60 mL/min (>60) > 60 mL/min (>60) > 60 mL/min (>60) Glucose Level 158 MG/DL (74-106) 126 MG/DL (74-106) 99 MG/DL (74-106) Calcium Level 9.1 MG/DL (8.5-10.1) 8.8 MG/DL (8.5-10.1) 8.6 MG/DL (8.5-10.1) Phosphorus Level 3.8 MG/DL (2.5-4.9) 3.9 MG/DL (2.5-4.9) Magnesium Level 2.7 MG/DL (1.8-2.4) 2.6 MG/DL (1.8-2.4) Total Bilirubin 0.4 MG/DL (0.2-1.0) 0.4 MG/DL (0.2-1.0) Aspartate Amino Transf (AST/SGOT) 46 U/L (15-37) 39 U/L (15-37) Alanine Aminotransferase (ALT/SGPT) 88 U/L (12-78) 83 U/L (12-78) Alkaline Phosphatase 67 U/L (46-116) 64 U/L (46-116) Total Protein 6.7 G/DL (6.4-8.2) 6.4 G/DL (6.4-8.2) Albumin 3.0 G/DL (3.4-5.0) 2.9 G/DL (3.4-5.0) Globulin 3.7 g/dL 3.5 g/dL Albumin/Globulin Ratio 0.8 (1.0-2.7) 0.8 (1.0-2.7) Arterial Blood pH 7.370 (7.350-7.450) Arterial Blood Partial Pressure CO2 49.5 mmHg (35.0-45.0) Arterial Blood Partial Pressure O2 94.6 mmHg (75.0-100.0) Arterial Blood HCO3 28.0 mmol/L (22.0-26.0) Arterial Blood Oxygen Saturation 96.4 % (95-100) Arterial Blood Base Excess 2.0 (-2-2) Luis Test Positive Height (Feet): 5 Height (Inches): 9.00 Weight (Pounds): 298 Objective Physical Exam General Appearance: well appearing, nad, obese Head: normocephalic ++ ogt Resp: normal breath sounds nc Cardiovascular: normal rate Gastrointestinal: normal inspection, non tender, soft, normal bowel sounds, non -distended Msk: normal inspection, back normal Skin: normal inspection, normal color, no rash, warm/dry, palpation normal, well hydrated Lymphatic: normal inspection, no adenopathy Wade Bonds MD Dec 30, 2018 10:37
--- NOTE | 2018-12-30 11:59 | NUR ---
NURSE NOTES: SEEN AND EXAMINED BY DR CARRILLO. NEW ORDERS MADE AND CARRIED OUT. WILL CONTINUE TO MONITOR.
[2018-12-30] MEDS ORDERED: LORazepam Inj 2mg/ml 1ml IV PRN (12:00)
--- NOTE | 2018-12-30 12:18 | Nephrology Progress Note ---
Assessment/Plan Problem List: (1) Salicylate overdose (2) Psychosis (3) Anemia (4) Obesity (5) Hypokalemia (6) Rhabdomyolysis Assessment: high CPK Assessment HypoKalemia Mild Anemia s/p Acidosis resolved Respiratory failure Salicylate overdose Psychosis Asthma Obesity Plan Plan: hold Norvasc PRN clonidin extubated 12/29 K , Mag , Phos supplement as needed no IV fluids taper steroids as possible IV Protonix Resp management per Dr hurt monitor renal parameters Urine studies Subjective ROS Limited/Unobtainable: No Constitutional: Reports: malaise Objective Objective Last 24 Hour Vital Signs Date Time Temp Pulse Resp B/P (MAP) Pulse Ox O2 Delivery O2 Flow Rate FiO2 12/30/18 11:24 129 38 98 Facial 40 135 40 96 Bi-Pap 40 12/30/18 11:23 121 39 97 Bi-Pap 40 124 37 96 12/30/18 11:00 120 34 165/90 (115) 96 12/30/18 10:00 126 30 166/82 (110) 96 12/30/18 09:00 96 25 138/72 (94) 96 12/30/18 08:00 98.9 86 29 121/62 (81) 98 12/30/18 08:00 Bi-pap 12/30/18 08:00 2.0 12/30/18 08:00 104 12/30/18 07:40 2.0 12/30/18 07:28 96 Bi-Pap 40 12/30/18 07:25 114 38 97 Bi-Pap 40 113 36 95 12/30/18 07:00 118 35 139/74 (95) 96 12/30/18 06:00 102 31 107/78 (88) 95 12/30/18 05:00 117 28 115/58 (77) 95 12/30/18 05:00 40 12/30/18 04:53 108 32 98 Facial 40 12/30/18 04:00 99.2 98 28 135/71 (92) 95 12/30/18 04:00 Simple Mask 12.0 12/30/18 04:00 60 12/30/18 04:00 84 12/30/18 03:18 94 21 97 Facial 60 98 24 97 Bi-Pap 60 12/30/18 03:08 Bi-Pap 60 12/30/18 03:00 91 21 94/37 (56) 96 12/30/18 02:00 90 23 114/68 (83) 98 12/30/18 01:11 102 24 96 Facial 60 12/30/18 01:00 106 23 108/73 (85) 97 12/30/18 00:15 60 12/30/18 00:12 110 28 93 Facial 60 12/30/18 00:00 98.4 98 24 144/74 (97) 86 12/30/18 00:00 Simple Mask 12.0 12/30/18 00:00 77 12/29/18 23:40 79 22 98 Cool Aerosol 12.0 40 71 21 95 12/29/18 23:00 78 21 97/44 (61) 95 12/29/18 22:00 79 20 84/53 (63) 96 12/29/18 21:00 95 23 112/52 (72) 96 12/29/18 20:00 Simple Mask 12.0 12/29/18 20:00 108 12/29/18 20:00 98.4 120 26 110/75 (87) 12/29/18 19:49 116 27 99 Cool Aerosol 12.0 40 110 24 99 12/29/18 19:32 99 Cool Aerosol 12.0 40 12/29/18 19:00 111 23 90/72 (78) 98 12/29/18 18:00 106 28 129/68 (88) 95 12/29/18 17:00 83 28 99/64 (76) 94 12/29/18 16:00 98.6 113 24 106/60 (75) 94 12/29/18 16:00 Simple Mask 12.0 12/29/18 16:00 86 12/29/18 15:20 95 Cool Aerosol 12.0 40 12/29/18 15:00 84 29 108/56 (73) 97 12/29/18 14:54 103 19 95 Cool Aerosol 12.0 40 93 25 91 12/29/18 14:54 103 19 95 Cool Aerosol 12.0 40 12/29/18 14:00 99 29 108/55 (72) 100 12/29/18 13:00 100 27 102/47 (65) 100 Intake and Output 12/29/18 12/30/18 19:00 07:00 Intake Total 219.8 ml 540 ml Output Total 455 ml 510 ml Balance -235.2 ml 30 ml Free Water 100 ml IV Total 119.8 ml 540 ml Output Urine Total 455 ml 510 ml Laboratory Tests 12/30/18 03:50: White Blood Count 14.3H, Red Blood Count 3.94L, Hemoglobin 12.2, Hematocrit 38.8 , Mean Corpuscular Volume 99, Mean Corpuscular Hemoglobin 30.9, Mean Corpuscular Hemoglobin Concent 31.3L, Red Cell Distribution Width 14.4, Platelet Count 231, Mean Platelet Volume 5.1L, Neutrophils (%) (Auto) 66.7, Lymphocytes (%) (Auto) 23.2, Monocytes (%) (Auto) 8.5, Eosinophils (%) (Auto) 0.1, Basophils (%) (Auto) 1.5, Sodium Level 145, Potassium Level 4.6, Chloride Level 110H, Carbon Dioxide Level 29, Anion Gap 6, Blood Urea Nitrogen 15, Creatinine 0.9, Estimat Glomerular Filtration Rate > 60, Glucose Level 99, Calcium Level 8.6 Height (Feet): 5 Height (Inches): 9.00 Weight (Pounds): 298 General Appearance: mild distress EENT: other - BIPAP Cardiovascular: tachycardia Respiratory/Chest: decreased breath sounds Abdomen: distended Jerzy Boudreaux MD Dec 30, 2018 12:18
[2018-12-30] MEDS ORDERED: Acetaminophen 650mg/20.3ml ORAL PRN (12:30)
[2018-12-30] MEDS ORDERED: Miralax 17gm pkt ORAL PRN (12:30)
--- NOTE | 2018-12-30 12:57 | GI Progress Note ---
Assessment/Plan Problems: (1) Anemia ICD Codes: D64.9 - Anemia, unspecified SNOMED: 598552780 (2) Salicylate overdose ICD Codes: T39.091A - Poisoning by salicylates, accidental (unintentional), initial encounter SNOMED: 623985597, 1981594 (3) Respiratory failure ICD Codes: J96.90 - Respiratory failure, unspecified, unspecified whether with hypoxia or hypercapnia SNOMED: 053945824 (4) Suicidal intent ICD Codes: R45.851 - Suicidal ideations SNOMED: 098263568 Status: unchanged Status Narrative Discussed with Dr. Saldana. Assessment/Plan No plans for GI procedures at this time Medical management for salicylate overdose TF on hold for possible extubation today Sodium bicarbonate Electrolyte correction anemia work up OB stool r/o GI bleed monitor H&H, prn transfusions bowel regimen ppi fu labs pulmonary support The patient was seen and examined at bedside and all new and available data was reviewed in the patients chart. I agree with the above findings, impression and plan. (Patient seen earlier today. Signature stamp does not reflect patient encounter time.). - Vladimir Saldana MD Subjective Subjective limited Objective Last 24 Hour Vital Signs Date Time Temp Pulse Resp B/P (MAP) Pulse Ox O2 Delivery O2 Flow Rate FiO2 12/30/18 11:24 129 38 98 Facial 40 135 40 96 Bi-Pap 40 12/30/18 11:23 121 39 97 Bi-Pap 40 124 37 96 12/30/18 11:00 120 34 165/90 (115) 96 12/30/18 10:00 126 30 166/82 (110) 96 12/30/18 09:00 96 25 138/72 (94) 96 12/30/18 08:00 98.9 86 29 121/62 (81) 98 12/30/18 08:00 Bi-pap 12/30/18 08:00 2.0 12/30/18 08:00 104 12/30/18 07:40 2.0 12/30/18 07:28 96 Bi-Pap 40 12/30/18 07:25 114 38 97 Bi-Pap 40 113 36 95 12/30/18 07:00 118 35 139/74 (95) 96 12/30/18 06:00 102 31 107/78 (88) 95 12/30/18 05:00 117 28 115/58 (77) 95 12/30/18 05:00 40 12/30/18 04:53 108 32 98 Facial 40 12/30/18 04:00 99.2 98 28 135/71 (92) 95 12/30/18 04:00 Simple Mask 12.0 12/30/18 04:00 60 12/30/18 04:00 84 12/30/18 03:18 94 21 97 Facial 60 98 24 97 Bi-Pap 60 12/30/18 03:08 Bi-Pap 60 12/30/18 03:00 91 21 94/37 (56) 96 12/30/18 02:00 90 23 114/68 (83) 98 12/30/18 01:11 102 24 96 Facial 60 12/30/18 01:00 106 23 108/73 (85) 97 12/30/18 00:15 60 12/30/18 00:12 110 28 93 Facial 60 12/30/18 00:00 98.4 98 24 144/74 (97) 86 12/30/18 00:00 Simple Mask 12.0 12/30/18 00:00 77 12/29/18 23:40 79 22 98 Cool Aerosol 12.0 40 71 21 95 12/29/18 23:00 78 21 97/44 (61) 95 12/29/18 22:00 79 20 84/53 (63) 96 12/29/18 21:00 95 23 112/52 (72) 96 12/29/18 20:00 Simple Mask 12.0 12/29/18 20:00 108 12/29/18 20:00 98.4 120 26 110/75 (87) 12/29/18 19:49 116 27 99 Cool Aerosol 12.0 40 110 24 99 12/29/18 19:32 99 Cool Aerosol 12.0 40 12/29/18 19:00 111 23 90/72 (78) 98 12/29/18 18:00 106 28 129/68 (88) 95 12/29/18 17:00 83 28 99/64 (76) 94 12/29/18 16:00 98.6 113 24 106/60 (75) 94 12/29/18 16:00 Simple Mask 12.0 12/29/18 16:00 86 12/29/18 15:20 95 Cool Aerosol 12.0 40 12/29/18 15:00 84 29 108/56 (73) 97 12/29/18 14:54 103 19 95 Cool Aerosol 12.0 40 93 25 91 12/29/18 14:54 103 19 95 Cool Aerosol 12.0 40 12/29/18 14:00 99 29 108/55 (72) 100 12/29/18 13:00 100 27 102/47 (65) 100 Intake and Output 12/29/18 12/30/18 19:00 07:00 Intake Total 219.8 ml 540 ml Output Total 455 ml 510 ml Balance -235.2 ml 30 ml Free Water 100 ml IV Total 119.8 ml 540 ml Output Urine Total 455 ml 510 ml Laboratory Tests Test 12/30/18 03:50 12/30/18 12:30 White Blood Count 14.3 K/UL (4.8-10.8) H Red Blood Count 3.94 M/UL (4.20-5.40) L Hemoglobin 12.2 G/DL (12.0-16.0) Hematocrit 38.8 % (37.0-47.0) Mean Corpuscular Volume 99 FL (80-99) Mean Corpuscular Hemoglobin 30.9 PG (27.0-31.0) Mean Corpuscular Hemoglobin Concent 31.3 G/DL (32.0-36.0) L Red Cell Distribution Width 14.4 % (11.6-14.8) Platelet Count 231 K/UL (150-450) Mean Platelet Volume 5.1 FL (6.5-10.1) L Neutrophils (%) (Auto) 66.7 % (45.0-75.0) Lymphocytes (%) (Auto) 23.2 % (20.0-45.0) Monocytes (%) (Auto) 8.5 % (1.0-10.0) Eosinophils (%) (Auto) 0.1 % (0.0-3.0) Basophils (%) (Auto) 1.5 % (0.0-2.0) Sodium Level 145 MMOL/L (136-145) Potassium Level 4.6 MMOL/L (3.5-5.1) Chloride Level 110 MMOL/L (98-107) H Carbon Dioxide Level 29 MMOL/L (21-32) Anion Gap 6 mmol/L (5-15) Blood Urea Nitrogen 15 mg/dL (7-18) Creatinine 0.9 MG/DL (0.55-1.30) Estimat Glomerular Filtration Rate > 60 mL/min (>60) Glucose Level 99 MG/DL (74-106) Calcium Level 8.6 MG/DL (8.5-10.1) Arterial Blood pH 7.361 (7.350-7.450) Arterial Blood Partial Pressure CO2 49.6 mmHg (35.0-45.0) H Arterial Blood Partial Pressure O2 67.1 mmHg (75.0-100.0) L Arterial Blood HCO3 27.5 mmol/L (22.0-26.0) H Arterial Blood Oxygen Saturation 93.1 % (95-100) L Arterial Blood Base Excess 1.4 (-2-2) Luis Test Positive Height (Feet): 5 Height (Inches): 9.00 Weight (Pounds): 298 General Appearance: no apparent distress Cardiovascular: normal rate Respiratory/Chest: normal breath sounds, no respiratory distress, other - bipap Marc Chaudhary NP Dec 30, 2018 12:56
--- NOTE | 2018-12-30 13:22 | NUR ---
RADIOLOGY DEPT., CHEST X-RAY DONE.-P.DYE
[2018-12-30] MEDS ORDERED: NS 275ml ONE (14:23)
[2018-12-30] MEDS ORDERED: Tubing IV Secondary IV ONE (14:23)
--- NOTE | 2018-12-30 14:30 | NUR ---
NURSE NOTES: SEEN AND EXAMINED BY DR CARRILLO WITH NEW ORDERS MADE. TO KEEP PATIENT ON NPO. WILL CONTINUE TO MONITOR.
--- NOTE | 2018-12-30 14:41 | Diagnostic Imaging Report ---
Indication: Dyspnea Technique: One view of the chest Comparison: 12/28/2018 Findings: The heart is enlarged. There is bilateral interstitial congestion and hazy airspace disease, increased from the prior exam. Interval removal of previously demonstrated and the tracheal and nasogastric tubes. There may be a small amount of pleural fluid on the right Impression: Interim endotracheal and nasogastric extubation New/increased interstitial congestion and hazy parenchymal infiltrates versus edema
--- NOTE | 2018-12-30 14:42 | Pulmonolgy Critical Care Note ---
Critical Care - Asmt/Plan Assessment/Plan: Pulmonary CCM Progress Note HPI Patient is a 58-year-old woman with apparent history of Obstructive Airways Disease, Schizophrenia, Obesity, presented with shortness of breath, increased anxiety. Per ER notes history limited by mental status, being a poor historian. S/p extubation Noted to have elevated ASA level on admission FIO2 reduced , AB per ID On PRN BiPAP Physical Exam Vital Signs Noted General Appearance: normal inspection, obese, awake Head: NCAT ENT: Moist mm, JVP not visible Neck: normal inspection, full range of motion, supple, no bony tend Respiratory: normal inspection, no respiratory distress, no retraction, no wheezing, reduced basal BS Cardiovascular: regular rate, rhythm, Normal HS1, HS2 Gastrointestinal: normal inspection, normal bowel sounds, non tender, soft, no guarding, no hernia Genitourinary: no CVA tenderness Musculoskeletal: normal inspection, minimal edema Neurologic: no focal signs noted, follows commands Impression: Respiratory failure - sp extubation Previously elevated Salicylate level Pneumonia Possible Congestive Heart Failure Salicylate overdose Schizophrenia/Psychosis Asthma Obesity Plan: Adjust FIO2, BiPAP PRN ABG CXR ID following IV Solumedrol reduced HHN [employer] med PRN Sedation BLE dupplex PPX Keep negative balance ST eval Labs Noted CXR: ETT appropriate, basal infiltrates, vascular congestion Critical Care - Objective Last 24 Hour Vital Signs Date Time Temp Pulse Resp B/P (MAP) Pulse Ox O2 Delivery O2 Flow Rate FiO2 12/30/18 13:35 93 33 98 Facial 40 12/30/18 11:24 129 38 98 Facial 40 135 40 96 Bi-Pap 40 12/30/18 11:23 121 39 97 Bi-Pap 40 124 37 96 12/30/18 11:00 120 34 165/90 (115) 96 12/30/18 10:00 126 30 166/82 (110) 96 12/30/18 09:00 96 25 138/72 (94) 96 12/30/18 08:00 98.9 86 29 121/62 (81) 98 12/30/18 08:00 Bi-pap 12/30/18 08:00 2.0 12/30/18 08:00 104 12/30/18 07:40 2.0 12/30/18 07:28 96 Bi-Pap 40 12/30/18 07:25 114 38 97 Bi-Pap 40 113 36 95 12/30/18 07:00 118 35 139/74 (95) 96 12/30/18 06:00 102 31 107/78 (88) 95 12/30/18 05:00 117 28 115/58 (77) 95 12/30/18 05:00 40 12/30/18 04:53 108 32 98 Facial 40 12/30/18 04:00 99.2 98 28 135/71 (92) 95 12/30/18 04:00 Simple Mask 12.0 12/30/18 04:00 60 12/30/18 04:00 84 12/30/18 03:18 94 21 97 Facial 60 98 24 97 Bi-Pap 60 12/30/18 03:08 Bi-Pap 60 12/30/18 03:00 91 21 94/37 (56) 96 12/30/18 02:00 90 23 114/68 (83) 98 12/30/18 01:11 102 24 96 Facial 60 12/30/18 01:00 106 23 108/73 (85) 97 12/30/18 00:15 60 12/30/18 00:12 110 28 93 Facial 60 12/30/18 00:00 98.4 98 24 144/74 (97) 86 12/30/18 00:00 Simple Mask 12.0 12/30/18 00:00 77 12/29/18 23:40 79 22 98 Cool Aerosol 12.0 40 71 21 95 12/29/18 23:00 78 21 97/44 (61) 95 12/29/18 22:00 79 20 84/53 (63) 96 12/29/18 21:00 95 23 112/52 (72) 96 12/29/18 20:00 Simple Mask 12.0 12/29/18 20:00 108 12/29/18 20:00 98.4 120 26 110/75 (87) 12/29/18 19:49 116 27 99 Cool Aerosol 12.0 40 110 24 99 12/29/18 19:32 99 Cool Aerosol 12.0 40 12/29/18 19:00 111 23 90/72 (78) 98 12/29/18 18:00 106 28 129/68 (88) 95 12/29/18 17:00 83 28 99/64 (76) 94 12/29/18 16:00 98.6 113 24 106/60 (75) 94 12/29/18 16:00 Simple Mask 12.0 12/29/18 16:00 86 12/29/18 15:20 95 Cool Aerosol 12.0 40 12/29/18 15:00 84 29 108/56 (73) 97 12/29/18 14:54 103 19 95 Cool Aerosol 12.0 40 93 25 91 12/29/18 14:54 103 19 95 Cool Aerosol 12.0 40 Accucheck: 136 Critical Care - Subjective ROS Limited/Unobtainable: No FI02: 40 Vent Support Breath Rate: 24 Vent Support Mode: BiLevel Vent Tidal Volume: 550 Sputum Amount: None PEEP: 5.0 PIP: 14 Tube Feeding Amount: 40 I&O: Intake and Output 12/29/18 12/30/18 19:00 07:00 Intake Total 219.8 ml 540 ml Output Total 455 ml 510 ml Balance -235.2 ml 30 ml Free Water 100 ml IV Total 119.8 ml 540 ml Output Urine Total 455 ml 510 ml ET-Tube: 7.0 ET Position: 22 Kevna Monsalve MD Dec 30, 2018 14:42
--- NOTE | 2018-12-30 16:22 | NUR ---
NURSE NOTES: PATIENT TOLERATING BIPAP. SEEN LYING IN BED ASLEEP. NOT IN DISTRESS OF THE MOMENT. WILL CONTINUE TO MONITOR.
--- NOTE | 2018-12-30 16:47 | NUR ---
NURSE NOTES: SEEN AND EXAMINED BY DR DUBOIS. OK TO DC ATIVAN. WILL CONTINUE TO MONITOR.
[2018-12-30] MEDS: D5 1/2NS 1,000 ML IV SCH (16:51)
--- NOTE | 2018-12-30 19:19 | NUR ---
HAND-OFF: Report given to Reid Lewis RN.
--- NOTE | 2018-12-30 20:00 | NUR ---
NURSE NOTES: Patient received from Marleny LIMA. Patient is awake but drowsy and sleepy. Able to follow simple commands. Patient is on a BIPA at 13/5 and at 40% FiO2. Patient is currently saturating at 98%. Patient is receiving D51/2NS at 40ml/hr. Patient is NPO status. SCDs is on. Left AC 20G and L wrist 20G. NAD at this time, will continue to monitor
--- NOTE | 2018-12-30 20:25 | General Progress Note ---
Assessment/Plan Problem List: (1) Opioid dependence ICD Codes: F11.20 - Opioid dependence, uncomplicated SNOMED: 31839703 (2) Altered level of consciousness ICD Codes: R40.4 - Transient alteration of awareness SNOMED: 8933958 (3) Back pain ICD Codes: M54.9 - Dorsalgia, unspecified SNOMED: 021236855 (4) Opiate dependence ICD Codes: F11.20 - Opioid dependence, uncomplicated SNOMED: 75053980 (5) Depression ICD Codes: F32.9 - Major depressive disorder, single episode, unspecified SNOMED: 40094736 (6) Peripheral edema ICD Codes: R60.9 - Edema, unspecified SNOMED: 406854578 (7) Leg pain ICD Codes: M79.606 - Pain in leg, unspecified SNOMED: 38869749 (8) Headache ICD Codes: R51 - Headache SNOMED: 43242263 (9) COPD exacerbation ICD Codes: J44.1 - Chronic obstructive pulmonary disease with (acute) exacerbation SNOMED: 299069129 (10) Psychosis ICD Codes: F29 - Unsp psychosis not due to a substance or known physiol cond SNOMED: 79419927 (11) Respiratory failure ICD Codes: J96.90 - Respiratory failure, unspecified, unspecified whether with hypoxia or hypercapnia SNOMED: 756723223 (12) Salicylate overdose ICD Codes: T39.091A - Poisoning by salicylates, accidental (unintentional), initial encounter SNOMED: 394214332, 0336873 (13) Asthma ICD Codes: J45.909 - Unspecified asthma, uncomplicated SNOMED: 059893907, 0152484 (14) Anemia ICD Codes: D64.9 - Anemia, unspecified SNOMED: 623566740 Status: unchanged Assessment/Plan: salicylate overdose afebrile asthma anemia no wheezing lethargic resp failure lytes good reviewed chart and labs Subjective ROS Limited/Unobtainable: Yes Allergies: Coded Allergies: No Known Allergies (Unverified , 11/07/13) Objective Last 24 Hour Vital Signs Date Time Temp Pulse Resp B/P (MAP) Pulse Ox O2 Delivery O2 Flow Rate FiO2 12/30/18 19:00 115 28 150/70 (96) 99 12/30/18 18:00 93 29 130/74 (92) 12/30/18 17:00 97.6 82 27 129/79 (96) 98 12/30/18 16:57 84 30 97 Facial 40 12/30/18 16:00 Bi-pap 12/30/18 16:00 40 12/30/18 16:00 102 12/30/18 16:00 97 31 129/66 (87) 97 12/30/18 15:24 94 29 100 Bi-Pap 40 97 30 100 12/30/18 15:24 101 27 98 Facial 40 96 31 98 Bi-Pap 40 12/30/18 15:00 105 28 123/72 (89) 97 12/30/18 14:00 99 32 143/81 (101) 97 12/30/18 13:35 93 33 98 Facial 40 12/30/18 13:00 123 34 154/83 (106) 97 12/30/18 12:00 Bi-pap 12/30/18 12:00 98.6 128 38 174/79 (110) 96 12/30/18 12:00 128 12/30/18 12:00 40 12/30/18 11:24 129 38 98 Facial 40 135 40 96 Bi-Pap 40 12/30/18 11:23 121 39 97 Bi-Pap 40 124 37 96 12/30/18 11:00 120 34 165/90 (115) 96 12/30/18 10:00 126 30 166/82 (110) 96 12/30/18 09:00 96 25 138/72 (94) 96 12/30/18 08:00 98.9 86 29 121/62 (81) 98 12/30/18 08:00 Bi-pap 12/30/18 08:00 2.0 12/30/18 08:00 104 12/30/18 07:40 2.0 12/30/18 07:28 96 Bi-Pap 40 12/30/18 07:25 114 38 97 Bi-Pap 40 113 36 95 12/30/18 07:00 118 35 139/74 (95) 96 12/30/18 06:00 102 31 107/78 (88) 95 12/30/18 05:00 117 28 115/58 (77) 95 12/30/18 05:00 40 12/30/18 04:53 108 32 98 Facial 40 12/30/18 04:00 99.2 98 28 135/71 (92) 95 12/30/18 04:00 Simple Mask 12.0 12/30/18 04:00 60 12/30/18 04:00 84 12/30/18 03:18 94 21 97 Facial 60 98 24 97 Bi-Pap 60 12/30/18 03:08 Bi-Pap 60 12/30/18 03:00 91 21 94/37 (56) 96 12/30/18 02:00 90 23 114/68 (83) 98 12/30/18 01:11 102 24 96 Facial 60 12/30/18 01:00 106 23 108/73 (85) 97 12/30/18 00:15 60 12/30/18 00:12 110 28 93 Facial 60 12/30/18 00:00 98.4 98 24 144/74 (97) 86 12/30/18 00:00 Simple Mask 12.0 12/30/18 00:00 77 12/29/18 23:40 79 22 98 Cool Aerosol 12.0 40 71 21 95 12/29/18 23:00 78 21 97/44 (61) 95 12/29/18 22:00 79 20 84/53 (63) 96 12/29/18 21:00 95 23 112/52 (72) 96 Intake and Output 12/29/18 12/30/18 19:00 07:00 Intake Total 219.8 ml 540 ml Output Total 455 ml 510 ml Balance -235.2 ml 30 ml Free Water 100 ml IV Total 119.8 ml 540 ml Output Urine Total 455 ml 510 ml Laboratory Tests 12/30/18 03:50: White Blood Count 14.3H, Red Blood Count 3.94L, Hemoglobin 12.2, Hematocrit 38.8 , Mean Corpuscular Volume 99, Mean Corpuscular Hemoglobin 30.9, Mean Corpuscular Hemoglobin Concent 31.3L, Red Cell Distribution Width 14.4, Platelet Count 231, Mean Platelet Volume 5.1L, Neutrophils (%) (Auto) 66.7, Lymphocytes (%) (Auto) 23.2, Monocytes (%) (Auto) 8.5, Eosinophils (%) (Auto) 0.1, Basophils (%) (Auto) 1.5, Sodium Level 145, Potassium Level 4.6, Chloride Level 110H, Carbon Dioxide Level 29, Anion Gap 6, Blood Urea Nitrogen 15, Creatinine 0.9, Estimat Glomerular Filtration Rate > 60, Glucose Level 99, Calcium Level 8.6 12/30/18 12:30: Arterial Blood pH 7.361, Arterial Blood Partial Pressure CO2 49.6H, Arterial Blood Partial Pressure O2 67.1L, Arterial Blood HCO3 27.5H, Arterial Blood Oxygen Saturation 93.1L, Arterial Blood Base Excess 1.4, Luis Test Positive Height (Feet): 5 Height (Inches): 9.00 Weight (Pounds): 298 Cardiovascular: normal peripheral pulses Abdomen: soft Jasmine Joe MD Dec 30, 2018 20:25
[2018-12-30] MEDS: Doxycycline Monohydrate 100mg ORAL SCH (21:21)
[2018-12-30] MEDS: Docusate 100mg cap ORAL SCH (21:21)
--- NOTE | 2018-12-30 22:00 | NUR ---
NURSE NOTES: Repositioned patient and given oral care. Patient is awake and able to follow a conversation. No distress at this time,. vitals remains stable.
--- NOTE | 2018-12-30 23:57 | Cardiology Progress Note ---
Assessment/Plan Assessment/Plan 1. Sinus tachycardia, most likely due to hypoxemia, there is no need for AV carissa agents. 2. Acute respiratory failure due to right lung whiteout, on bipap mask. 3. History of chronic obstructive pulmonary disease. 4. History of salicylate overdose. 5. Morbid obesity. 6. Hyperthyroidism 7. Dyslipidemia Subjective Subjective Sinus rhythm at rate of 90. Bipap mask at FiO2 of 40%. Objective Last 24 Hour Vital Signs Date Time Temp Pulse Resp B/P (MAP) Pulse Ox O2 Delivery O2 Flow Rate FiO2 12/30/18 23:00 90 23 142/73 (96) 98 12/30/18 22:00 87 18 140/56 (84) 98 12/30/18 21:04 82 21 98 Facial 40 12/30/18 21:00 82 29 157/67 (97) 99 12/30/18 20:48 98 Bi-Pap 40 12/30/18 20:48 Bi-Pap 60 12/30/18 20:48 85 29 98 Facial 40 85 29 98 Bi-Pap 12/30/18 20:00 88 12/30/18 20:00 40 12/30/18 20:00 98.2 99 24 137/68 (91) 97 12/30/18 20:00 Bi-pap 12/30/18 19:00 115 28 150/70 (96) 99 12/30/18 18:00 93 29 130/74 (92) 12/30/18 17:00 97.6 82 27 129/79 (96) 98 12/30/18 16:57 84 30 97 Facial 40 12/30/18 16:00 Bi-pap 12/30/18 16:00 40 12/30/18 16:00 102 12/30/18 16:00 97 31 129/66 (87) 97 12/30/18 15:24 94 29 100 Bi-Pap 40 97 30 100 12/30/18 15:24 101 27 98 Facial 40 96 31 98 Bi-Pap 40 12/30/18 15:00 105 28 123/72 (89) 97 12/30/18 14:00 99 32 143/81 (101) 97 12/30/18 13:35 93 33 98 Facial 40 12/30/18 13:00 123 34 154/83 (106) 97 12/30/18 12:00 Bi-pap 12/30/18 12:00 98.6 128 38 174/79 (110) 96 12/30/18 12:00 128 12/30/18 12:00 40 12/30/18 11:24 129 38 98 Facial 40 135 40 96 Bi-Pap 40 12/30/18 11:23 121 39 97 Bi-Pap 40 124 37 96 12/30/18 11:00 120 34 165/90 (115) 96 12/30/18 10:00 126 30 166/82 (110) 96 12/30/18 09:00 96 25 138/72 (94) 96 12/30/18 08:00 98.9 86 29 121/62 (81) 98 12/30/18 08:00 Bi-pap 12/30/18 08:00 2.0 12/30/18 08:00 104 12/30/18 07:40 2.0 12/30/18 07:28 96 Bi-Pap 40 12/30/18 07:25 114 38 97 Bi-Pap 40 113 36 95 12/30/18 07:00 118 35 139/74 (95) 96 12/30/18 06:00 102 31 107/78 (88) 95 12/30/18 05:00 117 28 115/58 (77) 95 12/30/18 05:00 40 12/30/18 04:53 108 32 98 Facial 40 12/30/18 04:00 99.2 98 28 135/71 (92) 95 12/30/18 04:00 Simple Mask 12.0 12/30/18 04:00 60 12/30/18 04:00 84 12/30/18 03:18 94 21 97 Facial 60 98 24 97 Bi-Pap 60 12/30/18 03:08 Bi-Pap 60 12/30/18 03:00 91 21 94/37 (56) 96 12/30/18 02:00 90 23 114/68 (83) 98 12/30/18 01:11 102 24 96 Facial 60 12/30/18 01:00 106 23 108/73 (85) 97 12/30/18 00:15 60 12/30/18 00:12 110 28 93 Facial 60 12/30/18 00:00 98.4 98 24 144/74 (97) 86 12/30/18 00:00 Simple Mask 12.0 12/30/18 00:00 77 Intake and Output 12/29/18 12/30/18 19:00 07:00 Intake Total 219.8 ml 540 ml Output Total 455 ml 510 ml Balance -235.2 ml 30 ml Free Water 100 ml IV Total 119.8 ml 540 ml Output Urine Total 455 ml 510 ml Laboratory Tests Test 12/30/18 03:50 12/30/18 12:30 White Blood Count 14.3 K/UL (4.8-10.8) H Red Blood Count 3.94 M/UL (4.20-5.40) L Hemoglobin 12.2 G/DL (12.0-16.0) Hematocrit 38.8 % (37.0-47.0) Mean Corpuscular Volume 99 FL (80-99) Mean Corpuscular Hemoglobin 30.9 PG (27.0-31.0) Mean Corpuscular Hemoglobin Concent 31.3 G/DL (32.0-36.0) L Red Cell Distribution Width 14.4 % (11.6-14.8) Platelet Count 231 K/UL (150-450) Mean Platelet Volume 5.1 FL (6.5-10.1) L Neutrophils (%) (Auto) 66.7 % (45.0-75.0) Lymphocytes (%) (Auto) 23.2 % (20.0-45.0) Monocytes (%) (Auto) 8.5 % (1.0-10.0) Eosinophils (%) (Auto) 0.1 % (0.0-3.0) Basophils (%) (Auto) 1.5 % (0.0-2.0) Sodium Level 145 MMOL/L (136-145) Potassium Level 4.6 MMOL/L (3.5-5.1) Chloride Level 110 MMOL/L (98-107) H Carbon Dioxide Level 29 MMOL/L (21-32) Anion Gap 6 mmol/L (5-15) Blood Urea Nitrogen 15 mg/dL (7-18) Creatinine 0.9 MG/DL (0.55-1.30) Estimat Glomerular Filtration Rate > 60 mL/min (>60) Glucose Level 99 MG/DL (74-106) Calcium Level 8.6 MG/DL (8.5-10.1) Arterial Blood pH 7.361 (7.350-7.450) Arterial Blood Partial Pressure CO2 49.6 mmHg (35.0-45.0) H Arterial Blood Partial Pressure O2 67.1 mmHg (75.0-100.0) L Arterial Blood HCO3 27.5 mmol/L (22.0-26.0) H Arterial Blood Oxygen Saturation 93.1 % (95-100) L Arterial Blood Base Excess 1.4 (-2-2) Lius Test Positive Objective HEENT: Atraumatic and normocephalic. Anicteric. Pupils are equal, round, and reactive to light and accommodation. NECK: JVP cannot be assessed. No carotid bruit. CARDIOVASCULAR: Normal S1, S2. Regular rate and rhythm. No murmurs, gallops, or rubs. PMI is at fourth intercostal space in the midclavicular line. LUNGS: Diminished breath sounds in both lungs. ABDOMEN: Soft, obese. No hepatosplenomegaly. Positive bowel sounds. EXTREMITIES: No evidence of edema, clubbing, or cyanosis. Velasquez Staton MD Dec 30, 2018 23:57
[2018-12-31] VITALS (24 sets, daily range): BP systolic 121–167; BP diastolic 59–140
--- NOTE | 2018-12-31 | NUR ---
NURSE NOTES: Patient repositioned and given oral care. Patient lethargic but awake. VSS. Remains on continuous BIPAP.
--- NOTE | 2018-12-31 00:15 | Progress Note ---
DATE: 12/30/2018 SUBJECTIVE: The patient is still in the ICU. She is able to converse. She has episodes of anxiety. Stating that this was suicide attempt. Poor insight into her current medical condition. Still has waxing and waning consciousness. MENTAL STATUS EXAMINATION: The patient is alert and oriented times self and place. Mood is anxious. Affect is blunted. Congruent with mood. Thought process is concrete. Thought content, no suicidal or homicidal ideations. Cognition is impaired. Insight and judgment non-existent. ASSESSMENT: 1. Acute encephalopathy status post overdose. 2. History of schizophrenia. PLAN: 1. We will continue the current medication. 2. I recommend Haldol versus Ativan as Ativan may suppress respiratory system . Laurie Canchola M.D. DR: Edenilson JOB#: [id number] CC: JACQUIE
[2018-12-31] MEDS: Acetylcysteine 20% Soln 4ml HHN SCH ×7 (00:22→23:00)
[2018-12-31] MEDS: Albuterol/Ipratropium 3ml neb HHN SCH ×6 (00:22→20:01)
--- NOTE | 2018-12-31 01:28 | NUR ---
RESPIRATORY NOTE: PT WAS PLACED ON etCO2 MONITOR VIA BIPAP ADAPTOR. WILL CONTINUE TO MONITOR.
--- NOTE | 2018-12-31 02:00 | NUR ---
NURSE NOTES: Patient repositioned and given oral care. Remains on continuous BIPAP. Vitals remains stable.
--- NOTE | 2018-12-31 04:00 | NUR ---
NURSE NOTES: Patient cleaned and repositioned. Patient is more agitated right now. Reassured with therapeutic communication. Blood drawn and sent to lab. No BM.
[2018-12-31 04:53] LABS: BASOPHILS % (AUTO) 1.2 % (0.0-2.0); EOSINOPHILS % (AUTO) 0.4 % (0.0-3.0); HEMATOCRIT 38.2 % (37.0-47.0); HEMOGLOBIN 12.1 G/DL (12.0-16.0); LYMPHOCYTES % (AUTO) 28.3 % (20.0-45.0); MEAN CORPUSCULAR VOLUME 99 FL (80-99); MONOCYTES % (AUTO) 6.7 % (1.0-10.0); NEUTROPHILS % (AUTO) 63.4 % (45.0-75.0); PLATELET COUNT 227 K/UL (150-450); RED BLOOD COUNT 3.87 M/UL (4.20-5.40)
[2018-12-31] MEDS: Haloperidol 5mg/ml Inj IM PRN ×2 (05:03→13:35)
--- NOTE | 2018-12-31 05:06 | NUR ---
NURSE NOTES: Patient continues to be very agitated and restless. Haldol 5mg via IM given. Patient repositioned for maximum respiratory support.
--- NOTE | 2018-12-31 05:25 | NUR ---
RESPIRATORY NOTE: PT STABLE ON BIPAP WITH CURRENT SETTINGS. etCO2 MONITOR IN PLACE. NO WOUNDS FOUND UPON FACIAL INSPECTION. CIRCUIT AND MASK SECURE AND OUT OF THE WAY.
[2018-12-31 05:34] LABS: ALANINE AMINOTRANSFERASE 68 U/L (12-78); ALBUMIN 2.8 G/DL (3.4-5.0); ALBUMIN/GLOBULIN RATIO 0.8 (1.0-2.7); ALKALINE PHOSPHATASE 64 U/L (46-116); ANION GAP 5 mmol/L (5-15); ASPARTATE AMINO TRANSFERASE 24 U/L (15-37); BILIRUBIN,TOTAL 0.5 MG/DL (0.2-1.0); BLOOD UREA NITROGEN 15 mg/dL (7-18); CALCIUM 8.7 MG/DL (8.5-10.1); CARBON DIOXIDE 31 MMOL/L (21-32); CHLORIDE 109 MMOL/L (98-107); CREATININE 1.1 MG/DL (0.55-1.30); PHOSPHORUS 3.5 MG/DL (2.5-4.9); POTASSIUM 3.9 MMOL/L (3.5-5.1); SODIUM 145 MMOL/L (136-145)
[2018-12-31] MEDS: NovoLOG Insulin Flexpen SUBQ SCH ×4 (06:00→17:50)
--- NOTE | 2018-12-31 06:00 | NUR ---
NURSE NOTES: Patient continues to be agitated and restless at times despite giving Haldol.
--- NOTE | 2018-12-31 07:20 | NUR ---
NURSE NOTES: Received pt from CLARENCE Jaramillo. Oriented to person able to verbalize needs. Judgement is poor. Appears restless. Pt is on BIPAP 13/6, 40%. Spo2 93-95%, RR 36. Breathing labored and uneven. Sinus tachy, HR 123 on quality assurance monitor chassis. Bilateral breath sounds are diminished. Bilateral soft wrist restraints in place, skin warm to touch and intact. NPO. Abdomen is large but soft and non-distended. LH 22G running D51/2NS@40ml/hr. Mon catheter draining well to gravity. SCD's in place. Bed locked, alarmed and in lowest position.
[2018-12-31] MEDS: Docusate 100mg cap ORAL SCH ×2 (09:20→20:58)
[2018-12-31] MEDS: Pantoprazole Inj IVP SCH ×2 (09:20→20:58)
[2018-12-31] MEDS: Doxycycline Monohydrate 100mg ORAL SCH ×2 (09:20→20:58)
[2018-12-31] MEDS: Solu-MEDROL 40mg Inj IVP SCH (09:20)
--- NOTE | 2018-12-31 09:39 | Infectious Diseases Prog Note ---
Assessment/Plan Assessment/Plan IMPRESSION: Sepsis or systemic inflammatory response syndrome, COPD, Hypercapnic respiratory failure, s Salicylate toxicity, Morbid obesity. Leukocytosis improving Positive Urine culture, colonization RECOMMENDATION: Continue Doxycycline Sputum culture: normal aniyah& Staph aureus Taper steroids. Subjective ROS Limited/Unobtainable: Yes Neurologic: Reports: confusion, other - on restraint Allergies: Coded Allergies: No Known Allergies (Unverified , 11/07/13) Objective Vital Signs Last 24 Hour Vital Signs Date Time Temp Pulse Resp B/P (MAP) Pulse Ox O2 Delivery O2 Flow Rate FiO2 12/31/18 08:11 100 Bi-Pap 45 12/31/18 08:11 107 29 100 Facial 45 101 33 100 Bi-Pap 40 12/31/18 08:11 102 33 100 Bi-Pap 45 102 28 100 12/31/18 07:00 127 33 131/113 (119) 98 12/31/18 06:00 96 30 153/101 (118) 97 12/31/18 05:25 107 22 97 Facial 40 12/31/18 05:00 112 26 147/77 (100) 97 12/31/18 04:00 40 12/31/18 04:00 120 12/31/18 04:00 98.6 93 30 151/70 (97) 93 12/31/18 04:00 Bi-pap 12/31/18 03:18 91 24 100 Facial 40 93 22 100 Bi-Pap 12/31/18 03:18 93 22 100 Bi-Pap 40 91 24 100 12/31/18 03:00 77 26 132/84 (100) 100 12/31/18 02:00 85 27 130/62 (84) 98 12/31/18 01:28 91 27 96 Facial 40 12/31/18 01:00 88 26 135/65 (88) 98 12/31/18 00:38 107 21 98 Facial 40 12/31/18 00:20 97 13 99 Facial 40 111 23 98 Bi-Pap 12/31/18 00:20 111 23 98 Bi-Pap 40 99 24 97 12/31/18 00:00 Bi-pap 12/31/18 00:00 99.5 83 32 129/86 (100) 96 12/30/18 23:00 90 23 142/73 (96) 98 12/30/18 22:00 87 18 140/56 (84) 98 12/30/18 21:04 82 21 98 Facial 40 12/30/18 21:00 82 29 157/67 (97) 99 12/30/18 20:48 98 Bi-Pap 40 12/30/18 20:48 Bi-Pap 40 12/30/18 20:48 85 29 98 Facial 40 85 29 98 Bi-Pap 12/30/18 20:00 88 12/30/18 20:00 40 12/30/18 20:00 98.2 99 24 137/68 (91) 97 12/30/18 20:00 Bi-pap 12/30/18 19:00 115 28 150/70 (96) 99 12/30/18 18:00 93 29 130/74 (92) 12/30/18 17:00 97.6 82 27 129/79 (96) 98 12/30/18 16:57 84 30 97 Facial 40 12/30/18 16:00 Bi-pap 12/30/18 16:00 40 12/30/18 16:00 102 12/30/18 16:00 97 31 129/66 (87) 97 12/30/18 15:24 94 29 100 Bi-Pap 40 97 30 100 12/30/18 15:24 101 27 98 Facial 40 96 31 98 Bi-Pap 40 12/30/18 15:00 105 28 123/72 (89) 97 12/30/18 14:00 99 32 143/81 (101) 97 12/30/18 13:35 93 33 98 Facial 40 12/30/18 13:00 123 34 154/83 (106) 97 12/30/18 12:00 Bi-pap 12/30/18 12:00 98.6 128 38 174/79 (110) 96 12/30/18 12:00 128 12/30/18 12:00 40 12/30/18 11:24 129 38 98 Facial 40 135 40 96 Bi-Pap 40 12/30/18 11:23 121 39 97 Bi-Pap 40 124 37 96 12/30/18 11:00 120 34 165/90 (115) 96 12/30/18 10:00 126 30 166/82 (110) 96 Height (Feet): 5 Height (Inches): 9.00 Weight (Pounds): 298 General Appearance: other - obese HEENT: mucous membranes moist Respiratory/Chest: decreased breath sounds, other - tachpneic, on BIPAP Cardiovascular: tachycardia Abdomen: soft, non tender Extremities: no edema Neurologic/Psychiatric: disoriented Laboratory Tests Test 12/30/18 12:30 12/31/18 04:22 12/31/18 07:15 Arterial Blood pH 7.361 (7.350-7.450) 7.399 (7.350-7.450) Arterial Blood Partial Pressure CO2 49.6 mmHg (35.0-45.0) H 47.4 mmHg (35.0-45.0) H Arterial Blood Partial Pressure O2 67.1 mmHg (75.0-100.0) L 79.6 mmHg (75.0-100.0) Arterial Blood HCO3 27.5 mmol/L (22.0-26.0) H 28.6 mmol/L (22.0-26.0) H Arterial Blood Oxygen Saturation 93.1 % (95-100) L 95.1 % (95-100) Arterial Blood Base Excess 1.4 (-2-2) 3.1 (-2-2) H Luis Test Positive Positive White Blood Count 14.0 K/UL (4.8-10.8) H Red Blood Count 3.87 M/UL (4.20-5.40) L Hemoglobin 12.1 G/DL (12.0-16.0) Hematocrit 38.2 % (37.0-47.0) Mean Corpuscular Volume 99 FL (80-99) Mean Corpuscular Hemoglobin 31.2 PG (27.0-31.0) H Mean Corpuscular Hemoglobin Concent 31.6 G/DL (32.0-36.0) L Red Cell Distribution Width 14.0 % (11.6-14.8) Platelet Count 227 K/UL (150-450) Mean Platelet Volume 5.1 FL (6.5-10.1) L Neutrophils (%) (Auto) 63.4 % (45.0-75.0) Lymphocytes (%) (Auto) 28.3 % (20.0-45.0) Monocytes (%) (Auto) 6.7 % (1.0-10.0) Eosinophils (%) (Auto) 0.4 % (0.0-3.0) Basophils (%) (Auto) 1.2 % (0.0-2.0) Sodium Level 145 MMOL/L (136-145) Potassium Level 3.9 MMOL/L (3.5-5.1) Chloride Level 109 MMOL/L (98-107) H Carbon Dioxide Level 31 MMOL/L (21-32) Anion Gap 5 mmol/L (5-15) Blood Urea Nitrogen 15 mg/dL (7-18) Creatinine 1.1 MG/DL (0.55-1.30) Estimat Glomerular Filtration Rate > 60 mL/min (>60) Glucose Level 99 MG/DL (74-106) Uric Acid 3.6 MG/DL (2.6-7.2) Calcium Level 8.7 MG/DL (8.5-10.1) Phosphorus Level 3.5 MG/DL (2.5-4.9) Magnesium Level 2.2 MG/DL (1.8-2.4) Total Bilirubin 0.5 MG/DL (0.2-1.0) Aspartate Amino Transf (AST/SGOT) 24 U/L (15-37) Alanine Aminotransferase (ALT/SGPT) 68 U/L (12-78) Alkaline Phosphatase 64 U/L (46-116) C-Reactive Protein, Quantitative 6.9 mg/dL (0.00-0.90) H Pro-B-Type Natriuretic Peptide 175 pg/mL (0-125) H Total Protein 6.4 G/DL (6.4-8.2) Albumin 2.8 G/DL (3.4-5.0) L Globulin 3.6 g/dL Albumin/Globulin Ratio 0.8 (1.0-2.7) L Current Medications Medications (Trade) Dose Ordered Sig/Amaya Route PRN Reason Start Time Stop Time Status Last Admin Dose Admin Acetaminophen (Tylenol) 650 mg Q4H PRN ORAL FOR TEMP >100.5 12/30/18 12:30 01/22/19 07:29 Acetylcysteine (Mucomyst) 200 mg Q4HRT [facility] 12/24/18 23:00 01/23/19 12:59 12/31/18 08:11 Albuterol/ Ipratropium (Albuterol/ Ipratropium) 3 ml Q4HRT [facility] 12/26/18 19:45 12/31/18 19:44 12/31/18 08:11 Clonidine HCl (Catapres Tab) 0.1 mg Q4H PRN ORAL bp over 165 syst 12/30/18 12:30 01/29/19 12:29 Dextrose (Dextrose 50%) 25 ml Q30M PRN IV Hypoglycemia 12/21/18 17:00 01/20/19 16:59 Dextrose (Dextrose 50%) 50 ml Q30M PRN IV Hypoglycemia 12/21/18 17:00 01/20/19 16:59 Dextrose/Sodium Chloride 1,000 ml @ 40 mls/hr Q24H IV 12/29/18 15:45 01/28/19 15:44 12/30/18 16:51 Docusate Sodium (Colace) 100 mg Q12HR ORAL 12/30/18 21:00 01/27/19 20:59 12/31/18 09:20 Doxycycline Monohydrate (Doxycycline Monohydrate) 100 mg EVERY 12 HOURS ORAL 12/30/18 21:00 01/03/19 13:29 12/31/18 09:20 Haloperidol Lactate (Haldol) 5 mg Q6H PRN IM Agitation 12/24/18 00:30 01/23/19 00:29 12/31/18 05:03 Insulin Aspart (NovoLOG) EVERY 6 HOURS SUBQ 12/21/18 18:00 01/20/19 17:59 12/29/18 17:56 Methylprednisolone Sodium Succinate (Solu-MEDROL) 30 mg DAILY IVP 12/31/18 09:00 01/28/19 08:59 12/31/18 09:20 Pantoprazole (Protonix) 40 mg EVERY 12 HOURS IVP 12/22/18 11:00 01/21/19 10:59 12/31/18 09:20 Polyethylene Glycol (Miralax) 17 gm DAILYPRN PRN ORAL Constipation 12/30/18 12:30 01/27/19 10:29 Quetiapine Fumarate (SEROquel) 25 mg Q6H PRN ORAL Agitation 12/30/18 12:30 01/20/19 12:29 Nikos Martinez MD Dec 31, 2018 09:39
--- NOTE | 2018-12-31 10:20 | NUR ---
NURSE NOTES: Patient agitated and restless, trying to get out of bed and pulling restraints. Tachycardic and tachypneic. Reorientation and talk therapy provided. Seroquel PO given as per ordered.
--- NOTE | 2018-12-31 11:20 | Diagnostic Imaging Report ---
APPROVED REPORT CPT Code: 46423 Present Symptoms Shortness of breath Comments: Technically difficult study due to body habitus. Risk Factors Obesity Bed Rest BILATERAL: Imaging reveals a patent deep venous system bilaterally. There is no evidence of thrombus within the common femoral, proximal superficial femoral, popliteal or tibial segments. The greater saphenous veins are within normal limits. Doppler indicates normal spontaneous flow within these segments. The mid to distal segments of superficial femoral vein was not well visualized, due to depth of vessel.
--- NOTE | 2018-12-31 11:27 | NUR ---
[facility]ING [employer] SI: RESP FAILURE, COPD T. 98.6 HR 112 RR 30 B/P 151/70 PCO2 47.4 BIPAP 13/6 FIO2 40% WBC 14.0 IS: SOLU MEDROL IV IVF D5NS @ 40ML/HR PROTONIX IV DOXYCYCLINE ICU STATUS
--- NOTE | 2018-12-31 11:29 | Nephrology Progress Note ---
Assessment/Plan Problem List: (1) Salicylate overdose (2) Psychosis (3) Anemia (4) Obesity (5) Hypokalemia (6) Rhabdomyolysis Assessment: high CPK Assessment HypoKalemia Mild Anemia s/p Acidosis resolved Respiratory failure Salicylate overdose Psychosis Asthma Obesity Plan Plan: continue BIPAP and resp support hold Norvasc PRN clonidin extubated 12/29 K , Mag , Phos supplement as needed no IV fluids taper steroids as possible IV Protonix Resp management per Dr hurt monitor renal parameters Urine studies Objective Objective Last 24 Hour Vital Signs Date Time Temp Pulse Resp B/P (MAP) Pulse Ox O2 Delivery O2 Flow Rate FiO2 12/31/18 11:18 115 42 100 Facial 40 115 42 100 Bi-Pap 40 12/31/18 11:17 121 46 97 Bi-Pap 40 115 44 100 12/31/18 08:52 110 33 100 Facial 40 101 33 100 Bi-Pap 40 12/31/18 08:11 100 Bi-Pap 45 12/31/18 08:11 107 29 100 Facial 45 101 33 100 Bi-Pap 40 12/31/18 08:11 102 33 100 Bi-Pap 45 102 28 100 12/31/18 08:00 Bi-pap 12/31/18 08:00 45 12/31/18 07:00 127 33 131/113 (119) 98 12/31/18 06:00 96 30 153/101 (118) 97 12/31/18 05:25 107 22 97 Facial 40 12/31/18 05:00 112 26 147/77 (100) 97 12/31/18 04:00 40 12/31/18 04:00 120 12/31/18 04:00 98.6 93 30 151/70 (97) 93 12/31/18 04:00 Bi-pap 12/31/18 03:18 91 24 100 Facial 40 93 22 100 Bi-Pap 12/31/18 03:18 93 22 100 Bi-Pap 40 91 24 100 12/31/18 03:00 77 26 132/84 (100) 100 12/31/18 02:00 85 27 130/62 (84) 98 12/31/18 01:28 91 27 96 Facial 40 12/31/18 01:00 88 26 135/65 (88) 98 12/31/18 00:38 107 21 98 Facial 40 12/31/18 00:20 97 13 99 Facial 40 111 23 98 Bi-Pap 12/31/18 00:20 111 23 98 Bi-Pap 40 99 24 97 12/31/18 00:00 Bi-pap 12/31/18 00:00 99.5 83 32 129/86 (100) 96 12/30/18 23:00 90 23 142/73 (96) 98 12/30/18 22:00 87 18 140/56 (84) 98 12/30/18 21:04 82 21 98 Facial 40 12/30/18 21:00 82 29 157/67 (97) 99 12/30/18 20:48 98 Bi-Pap 40 12/30/18 20:48 Bi-Pap 40 12/30/18 20:48 85 29 98 Facial 40 85 29 98 Bi-Pap 12/30/18 20:00 88 12/30/18 20:00 40 12/30/18 20:00 98.2 99 24 137/68 (91) 97 12/30/18 20:00 Bi-pap 12/30/18 19:00 115 28 150/70 (96) 99 12/30/18 18:00 93 29 130/74 (92) 12/30/18 17:00 97.6 82 27 129/79 (96) 98 12/30/18 16:57 84 30 97 Facial 40 12/30/18 16:00 Bi-pap 12/30/18 16:00 40 12/30/18 16:00 102 12/30/18 16:00 97 31 129/66 (87) 97 12/30/18 15:24 94 29 100 Bi-Pap 40 97 30 100 12/30/18 15:24 101 27 98 Facial 40 96 31 98 Bi-Pap 40 12/30/18 15:00 105 28 123/72 (89) 97 12/30/18 14:00 99 32 143/81 (101) 97 12/30/18 13:35 93 33 98 Facial 40 12/30/18 13:00 123 34 154/83 (106) 97 12/30/18 12:00 Bi-pap 12/30/18 12:00 98.6 128 38 174/79 (110) 96 12/30/18 12:00 128 12/30/18 12:00 40 Intake and Output 12/30/18 12/31/18 18:59 06:59 Intake Total 645 ml 480 ml Output Total 335 ml 530 ml Balance 310 ml -50 ml IV Total 645 ml 480 ml Output Urine Total 335 ml 530 ml Laboratory Tests 12/30/18 12:30: Arterial Blood pH 7.361, Arterial Blood Partial Pressure CO2 49.6H, Arterial Blood Partial Pressure O2 67.1L, Arterial Blood HCO3 27.5H, Arterial Blood Oxygen Saturation 93.1L, Arterial Blood Base Excess 1.4, Luis Test Positive 12/31/18 04:22: White Blood Count 14.0H, Red Blood Count 3.87L, Hemoglobin 12.1, Hematocrit 38.2 , Mean Corpuscular Volume 99, Mean Corpuscular Hemoglobin 31.2H, Mean Corpuscular Hemoglobin Concent 31.6L, Red Cell Distribution Width 14.0, Platelet Count 227, Mean Platelet Volume 5.1L, Neutrophils (%) (Auto) 63.4, Lymphocytes (%) (Auto) 28.3, Monocytes (%) (Auto) 6.7, Eosinophils (%) (Auto) 0.4, Basophils (%) (Auto) 1.2, Sodium Level 145, Potassium Level 3.9, Chloride Level 109H, Carbon Dioxide Level 31, Anion Gap 5, Blood Urea Nitrogen 15, Creatinine 1.1, Estimat Glomerular Filtration Rate > 60, Glucose Level 99, Uric Acid 3.6, Calcium Level 8.7, Phosphorus Level 3.5, Magnesium Level 2.2, Total Bilirubin 0.5, Aspartate Amino Transf (AST/SGOT) 24, Alanine Aminotransferase ( ALT/SGPT) 68, Alkaline Phosphatase 64, C-Reactive Protein, Quantitative 6.9H, Pro-B-Type Natriuretic Peptide 175H, Total Protein 6.4, Albumin 2.8L, Globulin 3.6, Albumin/Globulin Ratio 0.8L 12/31/18 07:15: Arterial Blood pH 7.399, Arterial Blood Partial Pressure CO2 47.4H, Arterial Blood Partial Pressure O2 79.6, Arterial Blood HCO3 28.6H, Arterial Blood Oxygen Saturation 95.1, Arterial Blood Base Excess 3.1H, Luis Test Positive Height (Feet): 5 Height (Inches): 9.00 Weight (Pounds): 298 General Appearance: no apparent distress EENT: other - BIPAP Respiratory/Chest: decreased breath sounds Abdomen: distended Jerzy Boudreaux MD Dec 31, 2018 11:29
--- NOTE | 2018-12-31 12:03 | NUR ---
NURSE NOTES: Turned and repositioned. x1 BM.
--- NOTE | 2018-12-31 13:10 | General Progress Note ---
Assessment/Plan Status: unchanged Assessment/Plan: Problems: (1) Anemia ICD Codes: D64.9 - Anemia, unspecified SNOMED: 528044915 (2) Salicylate overdose ICD Codes: T39.091A - Poisoning by salicylates, accidental (unintentional), initial encounter SNOMED: 754931264, 7483384 (3) Respiratory failure ICD Codes: J96.90 - Respiratory failure, unspecified, unspecified whether with hypoxia or hypercapnia SNOMED: 765796393 (4) Suicidal intent ICD Codes: R45.851 - Suicidal ideations SNOMED: 007401804 Status: unchanged Status Narrative Discussed with Dr. Saldana. Assessment/Plan No plans for GI procedures at this time Medical management for salicylate overdose on BIPAP Electrolyte correction anemia work up OB stool r/o GI bleed monitor H&H, prn transfusions bowel regimen added miralax and lactulose ppi fu labs Subjective ROS Limited/Unobtainable: No Allergies: Coded Allergies: No Known Allergies (Unverified , 11/07/13) Objective Last 24 Hour Vital Signs Date Time Temp Pulse Resp B/P (MAP) Pulse Ox O2 Delivery O2 Flow Rate FiO2 12/31/18 11:18 115 42 100 Facial 40 115 42 100 Bi-Pap 40 12/31/18 11:17 121 46 97 Bi-Pap 40 115 44 100 12/31/18 08:52 110 33 100 Facial 40 101 33 100 Bi-Pap 40 12/31/18 08:11 100 Bi-Pap 45 12/31/18 08:11 107 29 100 Facial 45 101 33 100 Bi-Pap 40 12/31/18 08:11 102 33 100 Bi-Pap 45 102 28 100 12/31/18 08:00 Bi-pap 12/31/18 08:00 45 12/31/18 07:00 127 33 131/113 (119) 98 12/31/18 06:00 96 30 153/101 (118) 97 12/31/18 05:25 107 22 97 Facial 40 12/31/18 05:00 112 26 147/77 (100) 97 12/31/18 04:00 40 12/31/18 04:00 120 12/31/18 04:00 98.6 93 30 151/70 (97) 93 12/31/18 04:00 Bi-pap 12/31/18 03:18 91 24 100 Facial 40 93 22 100 Bi-Pap 12/31/18 03:18 93 22 100 Bi-Pap 40 91 24 100 12/31/18 03:00 77 26 132/84 (100) 100 12/31/18 02:00 85 27 130/62 (84) 98 12/31/18 01:28 91 27 96 Facial 40 12/31/18 01:00 88 26 135/65 (88) 98 12/31/18 00:38 107 21 98 Facial 40 12/31/18 00:20 97 13 99 Facial 40 111 23 98 Bi-Pap 12/31/18 00:20 111 23 98 Bi-Pap 40 99 24 97 12/31/18 00:00 Bi-pap 12/31/18 00:00 99.5 83 32 129/86 (100) 96 12/30/18 23:00 90 23 142/73 (96) 98 12/30/18 22:00 87 18 140/56 (84) 98 12/30/18 21:04 82 21 98 Facial 40 12/30/18 21:00 82 29 157/67 (97) 99 12/30/18 20:48 98 Bi-Pap 40 12/30/18 20:48 Bi-Pap 40 12/30/18 20:48 85 29 98 Facial 40 85 29 98 Bi-Pap 12/30/18 20:00 88 12/30/18 20:00 40 12/30/18 20:00 98.2 99 24 137/68 (91) 97 12/30/18 20:00 Bi-pap 12/30/18 19:00 115 28 150/70 (96) 99 12/30/18 18:00 93 29 130/74 (92) 12/30/18 17:00 97.6 82 27 129/79 (96) 98 12/30/18 16:57 84 30 97 Facial 40 12/30/18 16:00 Bi-pap 12/30/18 16:00 40 12/30/18 16:00 102 12/30/18 16:00 97 31 129/66 (87) 97 12/30/18 15:24 94 29 100 Bi-Pap 40 97 30 100 12/30/18 15:24 101 27 98 Facial 40 96 31 98 Bi-Pap 40 12/30/18 15:00 105 28 123/72 (89) 97 12/30/18 14:00 99 32 143/81 (101) 97 12/30/18 13:35 93 33 98 Facial 40 Intake and Output 12/30/18 12/31/18 19:00 07:00 Intake Total 645 ml 480 ml Output Total 330 ml 530 ml Balance 315 ml -50 ml IV Total 645 ml 480 ml Output Urine Total 330 ml 530 ml Laboratory Tests 12/31/18 04:22: White Blood Count 14.0H, Red Blood Count 3.87L, Hemoglobin 12.1, Hematocrit 38.2 , Mean Corpuscular Volume 99, Mean Corpuscular Hemoglobin 31.2H, Mean Corpuscular Hemoglobin Concent 31.6L, Red Cell Distribution Width 14.0, Platelet Count 227, Mean Platelet Volume 5.1L, Neutrophils (%) (Auto) 63.4, Lymphocytes (%) (Auto) 28.3, Monocytes (%) (Auto) 6.7, Eosinophils (%) (Auto) 0.4, Basophils (%) (Auto) 1.2, Sodium Level 145, Potassium Level 3.9, Chloride Level 109H, Carbon Dioxide Level 31, Anion Gap 5, Blood Urea Nitrogen 15, Creatinine 1.1, Estimat Glomerular Filtration Rate > 60, Glucose Level 99, Uric Acid 3.6, Calcium Level 8.7, Phosphorus Level 3.5, Magnesium Level 2.2, Total Bilirubin 0.5, Aspartate Amino Transf (AST/SGOT) 24, Alanine Aminotransferase ( ALT/SGPT) 68, Alkaline Phosphatase 64, C-Reactive Protein, Quantitative 6.9H, Pro-B-Type Natriuretic Peptide 175H, Total Protein 6.4, Albumin 2.8L, Globulin 3.6, Albumin/Globulin Ratio 0.8L 12/31/18 07:15: Arterial Blood pH 7.399, Arterial Blood Partial Pressure CO2 47.4H, Arterial Blood Partial Pressure O2 79.6, Arterial Blood HCO3 28.6H, Arterial Blood Oxygen Saturation 95.1, Arterial Blood Base Excess 3.1H, Lusi Test Positive Height (Feet): 5 Height (Inches): 9.00 Weight (Pounds): 298 General Appearance: lethargic EENT: normal ENT inspection Neck: supple Cardiovascular: normal rate Respiratory/Chest: decreased breath sounds Abdomen: normal bowel sounds, non tender, soft Extremities: non-tender Vladimir Saldana MD Dec 31, 2018 13:10
--- NOTE | 2018-12-31 14:57 | NUR ---
NURSE NOTES: Patient pulling on restraints and pulled out her IV. Haldol IM and seroquel given but patient still agitated. Notified Dr. Canchola, received orders for ativan 2mg IVP q4hrs.
[2018-12-31] MEDS: LORazepam Inj 2mg/ml 1ml IV PRN (15:14)
--- NOTE | 2018-12-31 15:35 | Hematology/Onc Progress Note ---
Assessment/Plan Assessment/Plan Assessment and Recs: # Anemia of iron deficiency with decreased ferritin --> No evidence of hemolysis is noted, peripheral smear has been reviewed. --> Hgb goal >7. Transfuse prn. --> Iron has been ordered x 1 dose given stable hgb --> Medications have been reviewed --> low threshold for gi evaluation in case has occult + --> hgb trend 11.6-->12.2-->12.1 # Leukocytosis is likely due to steriods --> monitor steriod use --> accuchecks qac and qhs --> insulin as needed prn --> on ctx/doxy per id prn --> wbc 12-->15->17-->18-->14.3-->14 # Salicylate overdose now improved --> Medical management for salicylate overdose --> Sodium bicarbonate --> IVF started, as per renal --> now improved # Electrolyte correction --> replace k prn basis # Resp failure --> 12/29 extubated on nc The timing of this note does not necessarily reflect the time of the patient was seen. GREATLY APPRECIATE CONSULTATION. Subjective Allergies: Coded Allergies: No Known Allergies (Unverified , 11/07/13) Subjective 12/23: no events, no bleeding reported, tf held for potential extubation 12/24: icu, trach, agitated and confused, labs reviewed, abx, fentanyl 12/26: no bleeding, no chills, still on abx, fentayl, labs reviewed 12/27: dox and ctx, no bleeding sputum cultures reviewed 12/29: turned, repositioned, remains npo, labs noted 12/30: icu, restless, on abx, no signs of distress, labs reviewed, no fever 12/31: remain in icu, agitated, on seroquel, on restraints, labs reviewed Objective Objective Current Medications Medications (Trade) Dose Ordered Sig/Amaya Route PRN Reason Start Time Stop Time Status Last Admin Dose Admin Acetaminophen (Tylenol) 650 mg Q4H PRN ORAL FOR TEMP >100.5 12/30/18 12:30 01/22/19 07:29 Acetylcysteine (Mucomyst) 200 mg Q4HRT HHN 12/24/18 23:00 01/23/19 12:59 12/31/18 11:16 Albuterol/ Ipratropium (Albuterol/ Ipratropium) 3 ml Q4HRT HHN 12/26/18 19:45 12/31/18 19:44 12/31/18 11:16 Clonidine HCl (Catapres Tab) 0.1 mg Q4H PRN ORAL bp over 165 syst 12/30/18 12:30 01/29/19 12:29 Dextrose (Dextrose 50%) 25 ml Q30M PRN IV Hypoglycemia 12/21/18 17:00 01/20/19 16:59 Dextrose (Dextrose 50%) 50 ml Q30M PRN IV Hypoglycemia 12/21/18 17:00 01/20/19 16:59 Dextrose/Sodium Chloride 1,000 ml @ 40 mls/hr Q24H IV 12/29/18 15:45 01/28/19 15:44 12/30/18 16:51 Docusate Sodium (Colace) 100 mg Q12HR ORAL 12/30/18 21:00 01/27/19 20:59 12/31/18 09:20 Doxycycline Monohydrate (Doxycycline Monohydrate) 100 mg EVERY 12 HOURS ORAL 12/30/18 21:00 01/03/19 13:29 12/31/18 09:20 Furosemide (Lasix) 20 mg ONCE IV 12/31/18 15:00 12/31/18 16:00 Haloperidol Lactate (Haldol) 5 mg Q6H PRN IM Agitation 12/24/18 00:30 01/23/19 00:29 12/31/18 13:35 Insulin Aspart (NovoLOG) EVERY 6 HOURS SUBQ 12/21/18 18:00 01/20/19 17:59 12/29/18 17:56 Lactulose (Cephulac) 20 gm THREE TIMES A DAY ORAL 12/31/18 18:00 01/30/19 17:59 Lorazepam (Ativan 2mg/ml 1ml) 2 mg Q4H PRN IV For Anxiety 12/31/18 15:00 01/07/19 14:59 12/31/18 15:14 Methylprednisolone Sodium Succinate (Solu-MEDROL) 30 mg DAILY IVP 12/31/18 09:00 01/28/19 08:59 12/31/18 09:20 Pantoprazole (Protonix) 40 mg EVERY 12 HOURS IVP 12/22/18 11:00 01/21/19 10:59 12/31/18 09:20 Polyethylene Glycol (Miralax) 17 gm BEDTIME ORAL 12/31/18 21:00 01/30/19 20:59 Polyethylene Glycol (Miralax) 17 gm DAILYPRN PRN ORAL Constipation 12/30/18 12:30 01/27/19 10:29 Quetiapine Fumarate (SEROquel) 25 mg Q6H PRN ORAL Agitation 12/30/18 12:30 01/20/19 12:29 12/31/18 10:17 Last 24 Hour Vital Signs Date Time Temp Pulse Resp B/P (MAP) Pulse Ox O2 Delivery O2 Flow Rate FiO2 12/31/18 13:19 144 40 100 Facial 40 Bi-Pap 12/31/18 11:18 115 42 100 Facial 40 115 42 100 Bi-Pap 40 12/31/18 11:17 121 46 97 Bi-Pap 40 115 44 100 12/31/18 08:52 110 33 100 Facial 40 12/31/18 08:11 100 Bi-Pap 45 12/31/18 08:11 107 29 100 Facial 45 101 33 100 Bi-Pap 40 12/31/18 08:11 102 33 100 Bi-Pap 45 102 28 100 12/31/18 08:00 Bi-pap 12/31/18 08:00 45 12/31/18 07:00 127 33 131/113 (119) 98 12/31/18 06:00 96 30 153/101 (118) 97 12/31/18 05:25 107 22 97 Facial 40 12/31/18 05:00 112 26 147/77 (100) 97 12/31/18 04:00 40 12/31/18 04:00 120 12/31/18 04:00 98.6 93 30 151/70 (97) 93 12/31/18 04:00 Bi-pap 12/31/18 03:18 91 24 100 Facial 40 93 22 100 Bi-Pap 12/31/18 03:18 93 22 100 Bi-Pap 40 91 24 100 12/31/18 03:00 77 26 132/84 (100) 100 12/31/18 02:00 85 27 130/62 (84) 98 12/31/18 01:28 91 27 96 Facial 40 12/31/18 01:00 88 26 135/65 (88) 98 12/31/18 00:38 107 21 98 Facial 40 12/31/18 00:20 97 13 99 Facial 40 111 23 98 Bi-Pap 12/31/18 00:20 111 23 98 Bi-Pap 40 99 24 97 12/31/18 00:00 Bi-pap 12/31/18 00:00 99.5 83 32 129/86 (100) 96 12/30/18 23:00 90 23 142/73 (96) 98 12/30/18 22:00 87 18 140/56 (84) 98 12/30/18 21:04 82 21 98 Facial 40 12/30/18 21:00 82 29 157/67 (97) 99 12/30/18 20:48 98 Bi-Pap 40 12/30/18 20:48 Bi-Pap 40 12/30/18 20:48 85 29 98 Facial 40 85 29 98 Bi-Pap 12/30/18 20:00 88 12/30/18 20:00 40 12/30/18 20:00 98.2 99 24 137/68 (91) 97 12/30/18 20:00 Bi-pap 12/30/18 19:00 115 28 150/70 (96) 99 12/30/18 18:00 93 29 130/74 (92) 12/30/18 17:00 97.6 82 27 129/79 (96) 98 12/30/18 16:57 84 30 97 Facial 40 12/30/18 16:00 Bi-pap 12/30/18 16:00 40 12/30/18 16:00 102 12/30/18 16:00 97 31 129/66 (87) 97 12/30/18 15:24 94 29 100 Bi-Pap 40 97 30 100 12/30/18 15:24 101 27 98 Facial 40 96 31 98 Bi-Pap 40 12/30/18 15:00 105 28 123/72 (89) 97 12/30/18 14:00 99 32 143/81 (101) 97 12/30/18 13:35 93 33 98 Facial 40 12/30/18 13:00 123 34 154/83 (106) 97 12/30/18 12:00 Bi-pap 12/30/18 12:00 98.6 128 38 174/79 (110) 96 12/30/18 12:00 128 8/29/19 12:00 40 12/30/18 11:24 129 38 98 Facial 40 135 40 96 Bi-Pap 40 12/30/18 11:23 121 39 97 Bi-Pap 40 124 37 96 12/30/18 11:00 120 34 165/90 (115) 96 12/30/18 10:00 126 30 166/82 (110) 96 12/30/18 09:00 96 25 138/72 (94) 96 12/30/18 08:00 98.9 86 29 121/62 (81) 98 12/30/18 08:00 Bi-pap 12/30/18 08:00 2.0 12/30/18 08:00 104 12/30/18 07:40 2.0 12/30/18 07:28 96 Bi-Pap 40 12/30/18 07:25 114 38 97 Bi-Pap 40 113 36 95 12/30/18 07:00 118 35 139/74 (95) 96 12/30/18 06:00 102 31 107/78 (88) 95 12/30/18 05:00 117 28 115/58 (77) 95 12/30/18 05:00 40 12/30/18 04:53 108 32 98 Facial 40 12/30/18 04:00 99.2 98 28 135/71 (92) 95 12/30/18 04:00 Simple Mask 12.0 12/30/18 04:00 60 12/30/18 04:00 84 12/30/18 03:18 94 21 97 Facial 60 98 24 97 Bi-Pap 60 12/30/18 03:08 Bi-Pap 60 12/30/18 03:00 91 21 94/37 (56) 96 12/30/18 02:00 90 23 114/68 (83) 98 12/30/18 01:11 102 24 96 Facial 60 12/30/18 01:00 106 23 108/73 (85) 97 12/30/18 00:15 60 12/30/18 00:12 110 28 93 Facial 60 12/30/18 00:00 98.4 98 24 144/74 (97) 86 12/30/18 00:00 Simple Mask 12.0 12/30/18 00:00 77 12/29/18 23:40 79 22 98 Cool Aerosol 12.0 40 71 21 95 12/29/18 23:00 78 21 97/44 (61) 95 12/29/18 22:00 79 20 84/53 (63) 96 12/29/18 21:00 95 23 112/52 (72) 96 12/29/18 20:00 Simple Mask 12.0 12/29/18 20:00 108 12/29/18 20:00 98.4 120 26 110/75 (87) 12/29/18 19:49 116 27 99 Cool Aerosol 12.0 40 110 24 99 12/29/18 19:32 99 Cool Aerosol 12.0 40 12/29/18 19:00 111 23 90/72 (78) 98 12/29/18 18:00 106 28 129/68 (88) 95 12/29/18 17:00 83 28 99/64 (76) 94 12/29/18 16:00 98.6 113 24 106/60 (75) 94 12/29/18 16:00 Simple Mask 12.0 12/29/18 16:00 86 Intake and Output 12/30/18 12/31/18 19:00 07:00 Intake Total 645 ml 480 ml Output Total 330 ml 530 ml Balance 315 ml -50 ml IV Total 645 ml 480 ml Output Urine Total 330 ml 530 ml Labs Test 12/29/18 05:00 12/29/18 08:15 12/30/18 03:50 12/30/18 12:30 White Blood Count 16.9 K/UL (4.8-10.8) 14.3 K/UL (4.8-10.8) Red Blood Count 3.68 M/UL (4.20-5.40) 3.94 M/UL (4.20-5.40) Hemoglobin 11.6 G/DL (12.0-16.0) 12.2 G/DL (12.0-16.0) Hematocrit 35.9 % (37.0-47.0) 38.8 % (37.0-47.0) Mean Corpuscular Volume 98 FL (80-99) 99 FL (80-99) Mean Corpuscular Hemoglobin 31.5 PG (27.0-31.0) 30.9 PG (27.0-31.0) Mean Corpuscular Hemoglobin Concent 32.3 G/DL (32.0-36.0) 31.3 G/DL (32.0-36.0) Red Cell Distribution Width 14.4 % (11.6-14.8) 14.4 % (11.6-14.8) Platelet Count 236 K/UL (150-450) 231 K/UL (150-450) Mean Platelet Volume 5.2 FL (6.5-10.1) 5.1 FL (6.5-10.1) Neutrophils (%) (Auto) 74.8 % (45.0-75.0) 66.7 % (45.0-75.0) Lymphocytes (%) (Auto) 15.0 % (20.0-45.0) 23.2 % (20.0-45.0) Monocytes (%) (Auto) 8.8 % (1.0-10.0) 8.5 % (1.0-10.0) Eosinophils (%) (Auto) 0.3 % (0.0-3.0) 0.1 % (0.0-3.0) Basophils (%) (Auto) 1.1 % (0.0-2.0) 1.5 % (0.0-2.0) Sodium Level 148 MMOL/L (136-145) 145 MMOL/L (136-145) Potassium Level 4.6 MMOL/L (3.5-5.1) 4.6 MMOL/L (3.5-5.1) Chloride Level 111 MMOL/L (98-107) 110 MMOL/L (98-107) Carbon Dioxide Level 26 MMOL/L (21-32) 29 MMOL/L (21-32) Anion Gap 11 mmol/L (5-15) 6 mmol/L (5-15) Blood Urea Nitrogen 18 mg/dL (7-18) 15 mg/dL (7-18) Creatinine 1.1 MG/DL (0.55-1.30) 0.9 MG/DL (0.55-1.30) Estimat Glomerular Filtration Rate > 60 mL/min (>60) > 60 mL/min (>60) Glucose Level 126 MG/DL (74-106) 99 MG/DL (74-106) Calcium Level 8.8 MG/DL (8.5-10.1) 8.6 MG/DL (8.5-10.1) Phosphorus Level 3.9 MG/DL (2.5-4.9) Magnesium Level 2.6 MG/DL (1.8-2.4) Total Bilirubin 0.4 MG/DL (0.2-1.0) Aspartate Amino Transf (AST/SGOT) 39 U/L (15-37) Alanine Aminotransferase (ALT/SGPT) 83 U/L (12-78) Alkaline Phosphatase 64 U/L (46-116) Total Protein 6.4 G/DL (6.4-8.2) Albumin 2.9 G/DL (3.4-5.0) Globulin 3.5 g/dL Albumin/Globulin Ratio 0.8 (1.0-2.7) Arterial Blood pH 7.370 (7.350-7.450) 7.361 (7.350-7.450) Arterial Blood Partial Pressure CO2 49.5 mmHg (35.0-45.0) 49.6 mmHg (35.0-45.0) Arterial Blood Partial Pressure O2 94.6 mmHg (75.0-100.0) 67.1 mmHg (75.0-100.0) Arterial Blood HCO3 28.0 mmol/L (22.0-26.0) 27.5 mmol/L (22.0-26.0) Arterial Blood Oxygen Saturation 96.4 % (95-100) 93.1 % (95-100) Arterial Blood Base Excess 2.0 (-2-2) 1.4 (-2-2) Luis Test Positive Positive Test 12/31/18 04:22 12/31/18 07:15 White Blood Count 14.0 K/UL (4.8-10.8) Red Blood Count 3.87 M/UL (4.20-5.40) Hemoglobin 12.1 G/DL (12.0-16.0) Hematocrit 38.2 % (37.0-47.0) Mean Corpuscular Volume 99 FL (80-99) Mean Corpuscular Hemoglobin 31.2 PG (27.0-31.0) Mean Corpuscular Hemoglobin Concent 31.6 G/DL (32.0-36.0) Red Cell Distribution Width 14.0 % (11.6-14.8) Platelet Count 227 K/UL (150-450) Mean Platelet Volume 5.1 FL (6.5-10.1) Neutrophils (%) (Auto) 63.4 % (45.0-75.0) Lymphocytes (%) (Auto) 28.3 % (20.0-45.0) Monocytes (%) (Auto) 6.7 % (1.0-10.0) Eosinophils (%) (Auto) 0.4 % (0.0-3.0) Basophils (%) (Auto) 1.2 % (0.0-2.0) Sodium Level 145 MMOL/L (136-145) Potassium Level 3.9 MMOL/L (3.5-5.1) Chloride Level 109 MMOL/L (98-107) Carbon Dioxide Level 31 MMOL/L (21-32) Anion Gap 5 mmol/L (5-15) Blood Urea Nitrogen 15 mg/dL (7-18) Creatinine 1.1 MG/DL (0.55-1.30) Estimat Glomerular Filtration Rate > 60 mL/min (>60) Glucose Level 99 MG/DL (74-106) Uric Acid 3.6 MG/DL (2.6-7.2) Calcium Level 8.7 MG/DL (8.5-10.1) Phosphorus Level 3.5 MG/DL (2.5-4.9) Magnesium Level 2.2 MG/DL (1.8-2.4) Total Bilirubin 0.5 MG/DL (0.2-1.0) Aspartate Amino Transf (AST/SGOT) 24 U/L (15-37) Alanine Aminotransferase (ALT/SGPT) 68 U/L (12-78) Alkaline Phosphatase 64 U/L (46-116) C-Reactive Protein, Quantitative 6.9 mg/dL (0.00-0.90) Pro-B-Type Natriuretic Peptide 175 pg/mL (0-125) Total Protein 6.4 G/DL (6.4-8.2) Albumin 2.8 G/DL (3.4-5.0) Globulin 3.6 g/dL Albumin/Globulin Ratio 0.8 (1.0-2.7) Arterial Blood pH 7.399 (7.350-7.450) Arterial Blood Partial Pressure CO2 47.4 mmHg (35.0-45.0) Arterial Blood Partial Pressure O2 79.6 mmHg (75.0-100.0) Arterial Blood HCO3 28.6 mmol/L (22.0-26.0) Arterial Blood Oxygen Saturation 95.1 % (95-100) Arterial Blood Base Excess 3.1 (-2-2) Luis Test Positive Height (Feet): 5 Height (Inches): 9.00 Weight (Pounds): 298 Objective Physical Exam General Appearance: well appearing, nad, obese Head: normocephalic ++ ogt Resp: normal breath sounds nc Cardiovascular: normal rate Gastrointestinal: normal inspection, non tender, soft, normal bowel sounds, non -distended Msk: normal inspection, back normal Skin: normal inspection, normal color, no rash, warm/dry, palpation normal, well hydrated Lymphatic: normal inspection, no adenopathy Wade Bonds MD Dec 31, 2018 15:35
--- NOTE | 2018-12-31 16:00 | NUR ---
NURSE NOTES: Patient pulled out IV, 2 Iv's inserted on left hand 20G and left wrist 22G. Patent and asymptomatic. Still restless, difficult to console. Frequent monitoring and repositioning continued.
--- NOTE | 2018-12-31 16:35 | Pulmonolgy Critical Care Note ---
Critical Care - Asmt/Plan Assessment/Plan: Pulmonary CCM Progress Note HPI Patient is a 58-year-old woman with apparent history of Obstructive Airways Disease, Schizophrenia, Obesity, presented with shortness of breath, increased anxiety. S/p extubation. Remains on PRN BiPAP Noted to have elevated ASA level on admission FIO2 reduced , AB per ID Remains agitated at times, Psychiatry following Physical Exam Vital Signs Noted General Appearance: normal inspection, obese, awake Head: NCAT ENT: Moist mm, JVP not visible Neck: normal inspection, full range of motion, supple, no bony tend Respiratory: normal inspection, no respiratory distress, no retraction, no wheezing, reduced basal BS Cardiovascular: regular rate, rhythm, Normal HS1, HS2 Gastrointestinal: normal inspection, normal bowel sounds, non tender, soft, no guarding, no hernia Genitourinary: no CVA tenderness Musculoskeletal: normal inspection, minimal edema Neurologic: no focal signs noted, follows commands Impression: Respiratory failure - sp extubation Previously elevated Salicylate level Pneumonia Possible Congestive Heart Failure Salicylate overdose Schizophrenia/Psychosis Asthma Obesity Plan: Adjust FIO2, BiPAP PRN ABG CXR ID following IV Solumedrol reduced HHN ISS SLATE SPLITTER med PRN Sedation BLE dupplex PPX Keep negative balance ST eval Labs Noted CXR: ETT appropriate, basal infiltrates, vascular congestion Critical Care - Objective Last 24 Hour Vital Signs Date Time Temp Pulse Resp B/P (MAP) Pulse Ox O2 Delivery O2 Flow Rate FiO2 12/31/18 16:00 40 12/31/18 16:00 Bi-pap 12/31/18 16:00 136 33 148/98 (115) 98 12/31/18 15:00 141 33 164/101 (122) 98 12/31/18 14:48 143 41 100 Full Face 40 Bi-Pap 12/31/18 14:00 145 44 167/68 (101) 98 12/31/18 13:19 144 40 100 Facial 40 Bi-Pap 12/31/18 13:00 138 42 147/72 (97) 98 12/31/18 12:00 99.5 119 33 155/81 (105) 98 12/31/18 12:00 Bi-pap 12/31/18 12:00 40 12/31/18 11:18 115 42 100 Facial 40 115 42 100 Bi-Pap 40 12/31/18 11:17 121 46 97 Bi-Pap 40 115 44 100 12/31/18 11:00 130 33 166/80 (108) 98 12/31/18 10:00 130 33 144/95 (111) 98 12/31/18 09:00 126 33 158/140 (146) 98 12/31/18 08:52 110 33 100 Facial 40 12/31/18 08:11 100 Bi-Pap 45 12/31/18 08:11 107 29 100 Facial 45 101 33 100 Bi-Pap 40 12/31/18 08:11 102 33 100 Bi-Pap 45 102 28 100 12/31/18 08:00 Bi-pap 12/31/18 08:00 99.2 101 33 131/113 (119) 98 12/31/18 08:00 45 12/31/18 07:00 127 33 131/113 (119) 98 12/31/18 06:00 96 30 153/101 (118) 97 12/31/18 05:25 107 22 97 Facial 40 12/31/18 05:00 112 26 147/77 (100) 97 12/31/18 04:00 40 12/31/18 04:00 120 12/31/18 04:00 98.6 93 30 151/70 (97) 93 12/31/18 04:00 Bi-pap 12/31/18 03:18 91 24 100 Facial 40 93 22 100 Bi-Pap 12/31/18 03:18 93 22 100 Bi-Pap 40 91 24 100 12/31/18 03:00 77 26 132/84 (100) 100 12/31/18 02:00 85 27 130/62 (84) 98 12/31/18 01:28 91 27 96 Facial 40 12/31/18 01:00 88 26 135/65 (88) 98 12/31/18 00:38 107 21 98 Facial 40 12/31/18 00:20 97 13 99 Facial 40 111 23 98 Bi-Pap 12/31/18 00:20 111 23 98 Bi-Pap 40 99 24 97 12/31/18 00:00 Bi-pap 12/31/18 00:00 99.5 83 32 129/86 (100) 96 12/30/18 23:00 90 23 142/73 (96) 98 12/30/18 22:00 87 18 140/56 (84) 98 12/30/18 21:04 82 21 98 Facial 40 12/30/18 21:00 82 29 157/67 (97) 99 12/30/18 20:48 98 Bi-Pap 40 12/30/18 20:48 Bi-Pap 40 12/30/18 20:48 85 29 98 Facial 40 85 29 98 Bi-Pap 12/30/18 20:00 88 12/30/18 20:00 40 12/30/18 20:00 98.2 99 24 137/68 (91) 97 12/30/18 20:00 Bi-pap 12/30/18 19:00 115 28 150/70 (96) 99 12/30/18 18:00 93 29 130/74 (92) 12/30/18 17:00 97.6 82 27 129/79 (96) 98 12/30/18 16:57 84 30 97 Facial 40 Accucheck: 191 Critical Care - Subjective ROS Limited/Unobtainable: No FI02: 40 Vent Support Breath Rate: 24 Vent Support Mode: BiLevel Vent Tidal Volume: 550 Sputum Amount: None PEEP: 5.0 PIP: 14 Tube Feeding Amount: 40 I&O: Intake and Output 12/30/18 12/31/18 19:00 07:00 Intake Total 645 ml 480 ml Output Total 330 ml 530 ml Balance 315 ml -50 ml IV Total 645 ml 480 ml Output Urine Total 330 ml 530 ml ET-Tube: 7.0 ET Position: 22 Kevan Monsalve MD Dec 31, 2018 16:35
[2018-12-31] MEDS: Lactulose 20gm/30ml UDC ORAL SCH (17:50)
--- NOTE | 2018-12-31 18:04 | NUR ---
NURSE NOTES: Patient is more calm. RT changed BIPAP to full face mask. HR 82, BP 144/83, RR 28. Son at bedside.
--- NOTE | 2018-12-31 19:00 | NUR ---
RESPIRATORY NOTE:pt recieved on BIPAP 14/10 RR14 40% pt sat is 98%, tape is placed on pt no skin tear or redness noted, pt is on full face mask and tolerating well, BIPAP connected in redm outlet alarms on x audible, will continue to monitor the pts progress
--- NOTE | 2018-12-31 19:30 | NUR ---
NURSE NOTES: Recvd.on a BIPAP Resp.unlabored.P.Ox.94-96%.Lungs Diminished BS at bases.See V/S.Scope SR.Pos.chg.Oriented x1 Able to Follows simple command.On Bila.soft wrist restraints prev.self-injury.IV Thera.in progress.F/cath.intact patent cont.to diuresis well fr.lasix recvd.See I/O.
--- NOTE | 2018-12-31 19:32 | NUR ---
HAND-OFF: Report given to CLARENCE Perry.
[2018-12-31] MEDS: Miralax 17gm pkt ORAL SCH (20:59)
--- NOTE | 2018-12-31 21:12 | General Progress Note ---
Assessment/Plan Problem List: (1) Opioid dependence ICD Codes: F11.20 - Opioid dependence, uncomplicated SNOMED: 55441613 (2) Altered level of consciousness ICD Codes: R40.4 - Transient alteration of awareness SNOMED: 2290971 (3) Back pain ICD Codes: M54.9 - Dorsalgia, unspecified SNOMED: 256470609 (4) Opiate dependence ICD Codes: F11.20 - Opioid dependence, uncomplicated SNOMED: 92819632 (5) Depression ICD Codes: F32.9 - Major depressive disorder, single episode, unspecified SNOMED: 43191583 (6) Peripheral edema ICD Codes: R60.9 - Edema, unspecified SNOMED: 232547273 (7) Leg pain ICD Codes: M79.606 - Pain in leg, unspecified SNOMED: 13368816 (8) Headache ICD Codes: R51 - Headache SNOMED: 98900636 (9) COPD exacerbation ICD Codes: J44.1 - Chronic obstructive pulmonary disease with (acute) exacerbation SNOMED: 503544575 (10) Psychosis ICD Codes: F29 - Unsp psychosis not due to a substance or known physiol cond SNOMED: 65042056 (11) Respiratory failure ICD Codes: J96.90 - Respiratory failure, unspecified, unspecified whether with hypoxia or hypercapnia SNOMED: 706640449 (12) Salicylate overdose ICD Codes: T39.091A - Poisoning by salicylates, accidental (unintentional), initial encounter SNOMED: 686434812, 3660754 (13) Asthma ICD Codes: J45.909 - Unspecified asthma, uncomplicated SNOMED: 382600124, 0809633 (14) Anemia ICD Codes: D64.9 - Anemia, unspecified SNOMED: 352342182 Status: progressing, unchanged Assessment/Plan: salicylate overdose mildly improving obesity do cpt no wheezing lethargic resp failure lytes good reviewed chart and labs Subjective ROS Limited/Unobtainable: Yes Allergies: Coded Allergies: No Known Allergies (Unverified , 11/07/13) Objective Last 24 Hour Vital Signs Date Time Temp Pulse Resp B/P (MAP) Pulse Ox O2 Delivery O2 Flow Rate FiO2 12/31/18 20:19 98 Bi-Pap 45 12/31/18 20:03 85 28 100 Bi-Pap 40 87 27 97 12/31/18 19:00 97 24 98 Full Face 40 Bi-Pap 12/31/18 19:00 94 31 137/92 (107) 96 12/31/18 18:00 127 33 139/99 (112) 96 12/31/18 17:05 116 33 97 Full Face 40 Bi-Pap 12/31/18 17:00 98.9 103 33 144/83 (103) 98 12/31/18 16:00 40 12/31/18 16:00 Bi-pap 12/31/18 16:00 148 12/31/18 16:00 136 33 148/98 (115) 98 12/31/18 15:00 141 33 164/101 (122) 98 12/31/18 14:48 143 41 100 Full Face 40 Bi-Pap 12/31/18 14:00 145 44 167/68 (101) 98 12/31/18 13:19 144 40 100 Facial 40 Bi-Pap 12/31/18 13:00 138 42 147/72 (97) 98 12/31/18 12:00 99.5 119 33 155/81 (105) 98 12/31/18 12:00 109 12/31/18 12:00 Bi-pap 12/31/18 12:00 40 12/31/18 11:18 115 42 100 Facial 40 115 42 100 Bi-Pap 40 12/31/18 11:17 121 46 97 Bi-Pap 40 115 44 100 12/31/18 11:00 130 33 166/80 (108) 98 12/31/18 10:00 130 33 144/95 (111) 98 12/31/18 09:00 126 33 158/140 (146) 98 12/31/18 08:52 110 33 100 Facial 40 12/31/18 08:11 100 Bi-Pap 45 12/31/18 08:11 107 29 100 Facial 45 101 33 100 Bi-Pap 40 12/31/18 08:11 102 33 100 Bi-Pap 45 102 28 100 12/31/18 08:00 Bi-pap 12/31/18 08:00 99.2 101 33 131/113 (119) 98 12/31/18 08:00 45 12/31/18 08:00 121 12/31/18 07:00 127 33 131/113 (119) 98 12/31/18 06:00 96 30 153/101 (118) 97 12/31/18 05:25 107 22 97 Facial 40 12/31/18 05:00 112 26 147/77 (100) 97 12/31/18 04:00 40 12/31/18 04:00 120 12/31/18 04:00 98.6 93 30 151/70 (97) 93 12/31/18 04:00 Bi-pap 12/31/18 03:18 91 24 100 Facial 40 93 22 100 Bi-Pap 12/31/18 03:18 93 22 100 Bi-Pap 40 91 24 100 12/31/18 03:00 77 26 132/84 (100) 100 12/31/18 02:00 85 27 130/62 (84) 98 12/31/18 01:28 91 27 96 Facial 40 12/31/18 01:00 88 26 135/65 (88) 98 12/31/18 00:38 107 21 98 Facial 40 12/31/18 00:20 97 13 99 Facial 40 111 23 98 Bi-Pap 12/31/18 00:20 111 23 98 Bi-Pap 40 99 24 97 12/31/18 00:00 Bi-pap 12/31/18 00:00 99.5 83 32 129/86 (100) 96 12/30/18 23:00 90 23 142/73 (96) 98 12/30/18 22:00 87 18 140/56 (84) 98 Intake and Output 12/30/18 12/31/18 19:00 07:00 Intake Total 645 ml 480 ml Output Total 330 ml 530 ml Balance 315 ml -50 ml IV Total 645 ml 480 ml Output Urine Total 330 ml 530 ml Laboratory Tests 12/31/18 04:22: White Blood Count 14.0H, Red Blood Count 3.87L, Hemoglobin 12.1, Hematocrit 38.2 , Mean Corpuscular Volume 99, Mean Corpuscular Hemoglobin 31.2H, Mean Corpuscular Hemoglobin Concent 31.6L, Red Cell Distribution Width 14.0, Platelet Count 227, Mean Platelet Volume 5.1L, Neutrophils (%) (Auto) 63.4, Lymphocytes (%) (Auto) 28.3, Monocytes (%) (Auto) 6.7, Eosinophils (%) (Auto) 0.4, Basophils (%) (Auto) 1.2, Sodium Level 145, Potassium Level 3.9, Chloride Level 109H, Carbon Dioxide Level 31, Anion Gap 5, Blood Urea Nitrogen 15, Creatinine 1.1, Estimat Glomerular Filtration Rate > 60, Glucose Level 99, Uric Acid 3.6, Calcium Level 8.7, Phosphorus Level 3.5, Magnesium Level 2.2, Total Bilirubin 0.5, Aspartate Amino Transf (AST/SGOT) 24, Alanine Aminotransferase ( ALT/SGPT) 68, Alkaline Phosphatase 64, C-Reactive Protein, Quantitative 6.9H, Pro-B-Type Natriuretic Peptide 175H, Total Protein 6.4, Albumin 2.8L, Globulin 3.6, Albumin/Globulin Ratio 0.8L 12/31/18 07:15: Arterial Blood pH 7.399, Arterial Blood Partial Pressure CO2 47.4H, Arterial Blood Partial Pressure O2 79.6, Arterial Blood HCO3 28.6H, Arterial Blood Oxygen Saturation 95.1, Arterial Blood Base Excess 3.1H, Luis Test Positive Height (Feet): 5 Height (Inches): 9.00 Weight (Pounds): 298 Cardiovascular: regular rhythm Respiratory/Chest: lungs clear Jasmine Joe MD Dec 31, 2018 21:12
[2018-12-31] MEDS ORDERED: NS 275ml ONE (21:31)
[2018-12-31] MEDS ORDERED: D5 1/2NS 1000ml IV ONE (21:31)
--- NOTE | 2018-12-31 22:00 | NUR ---
NURSE NOTES: HS care prov.Pos.chg.Kept comfortable.Suctioned orally foamy withish sec.Due meds admin.No Distress.Cont.Plan of care.
[2019-01-01] VITALS (24 sets, daily range): BP systolic 101–173; BP diastolic 59–103
--- NOTE | 2019-01-01 | Cardiology Progress Note ---
Assessment/Plan Assessment/Plan LATE NOTE ENTRY DATE OF PATIENT ENCOUNTER: 12/31/18 TIME PATIENT SEEN: 19:09 1. Sinus tachycardia, most likely due to hypoxemia, there is no need for AV carissa agents. 2. Acute respiratory failure due to right lung whiteout, on bipap mask. 3. History of chronic obstructive pulmonary disease. 4. History of salicylate overdose. 5. Morbid obesity. 6. Hyperthyroidism 7. Dyslipidemia Subjective Subjective Sinus rhythm at rate of 96. Bipap mask at FiO2 of 40%. Objective Last 24 Hour Vital Signs Date Time Temp Pulse Resp B/P (MAP) Pulse Ox O2 Delivery O2 Flow Rate FiO2 12/31/18 23:15 96 25 78 Full Face 40 Bi-Pap 12/31/18 22:00 83 25 147/74 (98) 96 12/31/18 21:00 97 24 98 Full Face 39 Bi-Pap 12/31/18 21:00 90 27 129/60 (83) 96 12/31/18 20:19 98 Bi-Pap 45 12/31/18 20:03 85 28 100 Bi-Pap 40 87 27 97 12/31/18 20:00 40 12/31/18 20:00 Bi-pap 12/31/18 20:00 88 12/31/18 20:00 98.8 88 28 121/74 (90) 96 12/31/18 19:00 97 24 98 Full Face 40 Bi-Pap 12/31/18 19:00 94 31 137/92 (107) 96 12/31/18 18:00 127 33 139/99 (112) 96 12/31/18 17:05 116 33 97 Full Face 40 Bi-Pap 12/31/18 17:00 98.9 103 33 144/83 (103) 98 12/31/18 16:00 40 12/31/18 16:00 Bi-pap 12/31/18 16:00 148 12/31/18 16:00 136 33 148/98 (115) 98 12/31/18 15:00 141 33 164/101 (122) 98 12/31/18 14:48 143 41 100 Full Face 40 Bi-Pap 12/31/18 14:00 145 44 167/68 (101) 98 12/31/18 13:19 144 40 100 Facial 40 Bi-Pap 12/31/18 13:00 138 42 147/72 (97) 98 12/31/18 12:00 99.5 119 33 155/81 (105) 98 12/31/18 12:00 109 12/31/18 12:00 Bi-pap 12/31/18 12:00 40 12/31/18 11:18 115 42 100 Facial 40 115 42 100 Bi-Pap 40 12/31/18 11:17 121 46 97 Bi-Pap 40 115 44 100 12/31/18 11:00 130 33 166/80 (108) 98 12/31/18 10:00 130 33 144/95 (111) 98 12/31/18 09:00 126 33 158/140 (146) 98 12/31/18 08:52 110 33 100 Facial 40 12/31/18 08:11 100 Bi-Pap 45 12/31/18 08:11 107 29 100 Facial 45 101 33 100 Bi-Pap 40 12/31/18 08:11 102 33 100 Bi-Pap 45 102 28 100 12/31/18 08:00 Bi-pap 12/31/18 08:00 99.2 101 33 131/113 (119) 98 12/31/18 08:00 45 12/31/18 08:00 121 12/31/18 07:00 127 33 131/113 (119) 98 12/31/18 06:00 96 30 153/101 (118) 97 12/31/18 05:25 107 22 97 Facial 40 12/31/18 05:00 112 26 147/77 (100) 97 12/31/18 04:00 40 12/31/18 04:00 120 12/31/18 04:00 98.6 93 30 151/70 (97) 93 12/31/18 04:00 Bi-pap 12/31/18 03:18 91 24 100 Facial 40 93 22 100 Bi-Pap 12/31/18 03:18 93 22 100 Bi-Pap 40 91 24 100 12/31/18 03:00 77 26 132/84 (100) 100 12/31/18 02:00 85 27 130/62 (84) 98 12/31/18 01:28 91 27 96 Facial 40 12/31/18 01:00 88 26 135/65 (88) 98 12/31/18 00:38 107 21 98 Facial 40 12/31/18 00:20 97 13 99 Facial 40 111 23 98 Bi-Pap 12/31/18 00:20 111 23 98 Bi-Pap 40 99 24 97 Intake and Output 12/31/18 01/01/19 19:00 07:00 Intake Total 480 ml 120 ml Output Total 2760 ml 270 ml Balance -2280 ml -150 ml IV Total 480 ml 120 ml Output Urine Total 2760 ml 270 ml # Bowel Movements 2 1 Laboratory Tests Test 12/31/18 04:22 12/31/18 07:15 White Blood Count 14.0 K/UL (4.8-10.8) H Red Blood Count 3.87 M/UL (4.20-5.40) L Hemoglobin 12.1 G/DL (12.0-16.0) Hematocrit 38.2 % (37.0-47.0) Mean Corpuscular Volume 99 FL (80-99) Mean Corpuscular Hemoglobin 31.2 PG (27.0-31.0) H Mean Corpuscular Hemoglobin Concent 31.6 G/DL (32.0-36.0) L Red Cell Distribution Width 14.0 % (11.6-14.8) Platelet Count 227 K/UL (150-450) Mean Platelet Volume 5.1 FL (6.5-10.1) L Neutrophils (%) (Auto) 63.4 % (45.0-75.0) Lymphocytes (%) (Auto) 28.3 % (20.0-45.0) Monocytes (%) (Auto) 6.7 % (1.0-10.0) Eosinophils (%) (Auto) 0.4 % (0.0-3.0) Basophils (%) (Auto) 1.2 % (0.0-2.0) Sodium Level 145 MMOL/L (136-145) Potassium Level 3.9 MMOL/L (3.5-5.1) Chloride Level 109 MMOL/L (98-107) H Carbon Dioxide Level 31 MMOL/L (21-32) Anion Gap 5 mmol/L (5-15) Blood Urea Nitrogen 15 mg/dL (7-18) Creatinine 1.1 MG/DL (0.55-1.30) Estimat Glomerular Filtration Rate > 60 mL/min (>60) Glucose Level 99 MG/DL (74-106) Uric Acid 3.6 MG/DL (2.6-7.2) Calcium Level 8.7 MG/DL (8.5-10.1) Phosphorus Level 3.5 MG/DL (2.5-4.9) Magnesium Level 2.2 MG/DL (1.8-2.4) Total Bilirubin 0.5 MG/DL (0.2-1.0) Aspartate Amino Transf (AST/SGOT) 24 U/L (15-37) Alanine Aminotransferase (ALT/SGPT) 68 U/L (12-78) Alkaline Phosphatase 64 U/L (46-116) C-Reactive Protein, Quantitative 6.9 mg/dL (0.00-0.90) H Pro-B-Type Natriuretic Peptide 175 pg/mL (0-125) H Total Protein 6.4 G/DL (6.4-8.2) Albumin 2.8 G/DL (3.4-5.0) L Globulin 3.6 g/dL Albumin/Globulin Ratio 0.8 (1.0-2.7) L Arterial Blood pH 7.399 (7.350-7.450) Arterial Blood Partial Pressure CO2 47.4 mmHg (35.0-45.0) H Arterial Blood Partial Pressure O2 79.6 mmHg (75.0-100.0) Arterial Blood HCO3 28.6 mmol/L (22.0-26.0) H Arterial Blood Oxygen Saturation 95.1 % (95-100) Arterial Blood Base Excess 3.1 (-2-2) H Luis Test Positive Objective HEENT: Atraumatic and normocephalic. Anicteric. Pupils are equal, round, and reactive to light and accommodation. On bipap mask. NECK: JVP cannot be assessed. No carotid bruit. CARDIOVASCULAR: Normal S1, S2. Regular rate and rhythm. No murmurs, gallops, or rubs. PMI is at fourth intercostal space in the midclavicular line. LUNGS: Diminished breath sounds in both lungs. ABDOMEN: Soft, obese. No hepatosplenomegaly. Positive bowel sounds. EXTREMITIES: No evidence of edema, clubbing, or cyanosis. Velasquez Staton MD Jan 01, 2019 00:00
--- NOTE | 2019-01-01 00:10 | NUR ---
NURSE NOTES: Repositioned,Kept comfortable.NPO cont.on IV Hydration.See I/O.FSBS-83.Cont.plan of care.
--- NOTE | 2019-01-01 00:45 | Progress Note ---
DATE: 12/31/2018 SUBJECTIVE: The patient is in ICU. Was severely agitated today. Received Ativan; however, ineffective. The patient is not stabilizing. MENTAL STATUS EXAMINATION: The patient is having waxing and waning consciousness. Mood is agitated. Affect is flat. Thought process is concrete. Thought content, no suicidal or homicidal ideations. ASSESSMENT: 1. Acute encephalopathy. 2. Status post salicylate overdose. 3. Schizophrenia. PLAN: 1. We will continue Haldol. 2. We will continue Ativan p.r.n. 3. Discussed the case with staff. Laurie Canchola M.D. DR: DENISE JOB#: [id number] CC: JACQUIE
[2019-01-01] MEDS: D5 1/2NS 1,000 ML IV SCH ×2 (01:33→16:52)
--- NOTE | 2019-01-01 02:00 | NUR ---
NURSE NOTES: Pos.chg.Bec.agitated,restless trashing in bed.Re-assured,Re-oriented.Kept comfortable.HHN Tx.recvd.cont.plan of care.
[2019-01-01] MEDS: Acetylcysteine 20% Soln 4ml HHN SCH ×6 (02:58→23:48)
--- NOTE | 2019-01-01 04:20 | NUR ---
NURSE NOTES: jaye Meyer chg.Pos.to comfort.more Cooperative and appropriate.VSS.Scope SR-ST denies CP.Derrick.BIPAP settings.
[2019-01-01] MEDS: NovoLOG Insulin Flexpen SUBQ SCH ×5 (06:00→23:26)
[2019-01-01] MEDS: Albuterol/Ipratropium 3ml neb HHN SCH ×5 (07:00→23:48)
[2019-01-01] MEDS ORDERED: Ipratropium 0.02% Inh Soln 2.5ml UD HHN SCH (07:00)
[2019-01-01] MEDS ORDERED: Albuterol ud Inhalation HHN SCH (07:00)
--- NOTE | 2019-01-01 07:00 | NUR ---
RESPIRATORY NOTES: Received Patient on BIPAP 13/6 PS +7 BUR 14 Fio2 40%. Patient currently on full face mask with tape in place, no redness or skin breakdown noted. Patient currently restrained and slightly agitated. BIPAP plugged into red outlet. Alarms are on and audible. Will continue to monitor throughout the day.
[2019-01-01] MEDS: LORazepam Inj 2mg/ml 1ml IV PRN ×2 (07:27→11:27)
--- NOTE | 2019-01-01 07:30 | NUR ---
NURSE NOTES: HAND-OFF: Report given to CLARENCE Smith.
--- NOTE | 2019-01-01 07:40 | NUR ---
NURSE NOTES: Report receiving from Orlando LIMA. Pt alert and oriented x 2-3, agitated and restless at times. 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 Pt on bipap 14/10 at 40% fiO2. Pt kept NPO for now. LH and LW heplocks noted and intact. Mon noted and intact with clear, yellow urine to gravity. Bilateral wrist restraints noted, pt trying to pull out lines/tubes and attempting to get oob. Safety measures in place with bed locked and in lowest position, side rails x3 up and bed alarm on. Will continue to monitor and continue plan of care.
--- NOTE | 2019-01-01 07:47 | General Progress Note ---
Assessment/Plan Status: progressing, unchanged Assessment/Plan: Problems: (1) Anemia ICD Codes: D64.9 - Anemia, unspecified SNOMED: 724246340 (2) Salicylate overdose ICD Codes: T39.091A - Poisoning by salicylates, accidental (unintentional), initial encounter SNOMED: 824279216, 8404258 (3) Respiratory failure ICD Codes: J96.90 - Respiratory failure, unspecified, unspecified whether with hypoxia or hypercapnia SNOMED: 203694260 (4) Suicidal intent ICD Codes: R45.851 - Suicidal ideations SNOMED: 196743562 Status: unchanged Status Narrative Discussed with Dr. Saldana. Assessment/Plan No plans for GI procedures at this time Medical management for salicylate overdose on BIPAP Electrolyte correction anemia work up OB stool r/o GI bleed monitor H&H, prn transfusions bowel regimen added miralax and lactulose ppi fu labs Subjective ROS Limited/Unobtainable: No Allergies: Coded Allergies: No Known Allergies (Unverified , 11/07/13) Objective Last 24 Hour Vital Signs Date Time Temp Pulse Resp B/P (MAP) Pulse Ox O2 Delivery O2 Flow Rate FiO2 01/01/19 07:45 99 Bi-Pap 40 01/01/19 07:41 120 36 97 Full Face 40 01/01/19 07:00 120 35 155/89 (111) 93 01/01/19 06:00 115 37 173/99 (123) 96 01/01/19 05:00 95 34 155/86 (109) 97 01/01/19 05:00 78 28 96 Full Face 40 Bi-Pap 01/01/19 04:00 98.9 103 28 170/73 (105) 97 01/01/19 04:00 Bi-pap 01/01/19 04:00 40 01/01/19 04:00 103 01/01/19 03:00 120 26 166/92 (116) 94 01/01/19 02:58 93 31 93 Full Face 40 Bi-Pap 01/01/19 02:00 76 26 131/72 (91) 96 01/01/19 01:11 96 25 75 Full Face 40 Bi-Pap 01/01/19 01:00 81 26 119/75 (90) 96 01/01/19 00:00 40 01/01/19 00:00 99.2 78 26 122/73 (89) 96 01/01/19 00:00 78 01/01/19 00:00 Bi-pap 12/31/18 23:15 96 25 78 Full Face 40 Bi-Pap 12/31/18 23:00 81 27 135/59 (84) 95 12/31/18 22:00 83 25 147/74 (98) 96 12/31/18 21:00 97 24 98 Full Face 39 Bi-Pap 12/31/18 21:00 90 27 129/60 (83) 96 12/31/18 20:19 98 Bi-Pap 45 12/31/18 20:03 85 28 100 Bi-Pap 40 87 27 97 12/31/18 20:00 40 12/31/18 20:00 Bi-pap 12/31/18 20:00 88 12/31/18 20:00 98.8 88 28 121/74 (90) 96 12/31/18 19:00 97 24 98 Full Face 40 Bi-Pap 12/31/18 19:00 94 31 137/92 (107) 96 12/31/18 18:00 127 33 139/99 (112) 96 12/31/18 17:05 116 33 97 Full Face 40 Bi-Pap 12/31/18 17:00 98.9 103 33 144/83 (103) 98 12/31/18 16:00 40 12/31/18 16:00 Bi-pap 12/31/18 16:00 148 12/31/18 16:00 136 33 148/98 (115) 98 12/31/18 15:00 141 33 164/101 (122) 98 12/31/18 14:48 143 41 100 Full Face 40 Bi-Pap 12/31/18 14:00 145 44 167/68 (101) 98 12/31/18 13:19 144 40 100 Facial 40 Bi-Pap 12/31/18 13:00 138 42 147/72 (97) 98 12/31/18 12:00 99.5 119 33 155/81 (105) 98 12/31/18 12:00 109 12/31/18 12:00 Bi-pap 12/31/18 12:00 40 12/31/18 11:18 115 42 100 Facial 40 115 42 100 Bi-Pap 40 12/31/18 11:17 121 46 97 Bi-Pap 40 115 44 100 12/31/18 11:00 130 33 166/80 (108) 98 12/31/18 10:00 130 33 144/95 (111) 98 12/31/18 09:00 126 33 158/140 (146) 98 12/31/18 08:52 110 33 100 Facial 40 12/31/18 08:11 100 Bi-Pap 45 12/31/18 08:11 107 29 100 Facial 45 101 33 100 Bi-Pap 40 12/31/18 08:11 102 33 100 Bi-Pap 45 102 28 100 12/31/18 08:00 Bi-pap 12/31/18 08:00 99.2 101 33 131/113 (119) 98 12/31/18 08:00 45 12/31/18 08:00 121 Intake and Output 12/31/18 01/01/19 19:00 07:00 Intake Total 480 ml 440 ml Output Total 2760 ml 660 ml Balance -2280 ml -220 ml IV Total 480 ml 440 ml Output Urine Total 2760 ml 660 ml # Bowel Movements 2 3 Height (Feet): 5 Height (Inches): 9.00 Weight (Pounds): 302 General Appearance: lethargic EENT: normal ENT inspection Neck: supple Cardiovascular: normal rate Respiratory/Chest: decreased breath sounds Abdomen: normal bowel sounds, non tender, soft Extremities: non-tender Vladimir Saldana MD Jan 01, 2019 07:47
[2019-01-01] MEDS: Haloperidol 5mg/ml Inj IM PRN ×2 (08:20→14:35)
[2019-01-01] MEDS: Docusate 100mg cap ORAL SCH ×2 (09:00→21:00)
[2019-01-01] MEDS: Lactulose 20gm/30ml UDC ORAL SCH ×3 (09:00→16:36)
--- NOTE | 2019-01-01 09:33 | Nephrology Progress Note ---
Assessment/Plan Problem List: (1) Salicylate overdose (2) Psychosis (3) Anemia (4) Obesity (5) Hypokalemia (6) Rhabdomyolysis Assessment: high CPK Assessment HypoKalemia Mild Anemia s/p Acidosis resolved Respiratory failure Salicylate overdose Psychosis Asthma Obesity Plan Plan: continue BIPAP and resp support hold Norvasc PRN clonidin extubated 12/29 K , Mag , Phos supplement as needed no IV fluids taper steroids as possible IV Protonix Resp management per Dr hurt monitor renal parameters Urine studies Subjective ROS Limited/Unobtainable: No Constitutional: Reports: malaise, other - BIPAP Objective Objective Last 24 Hour Vital Signs Date Time Temp Pulse Resp B/P (MAP) Pulse Ox O2 Delivery O2 Flow Rate FiO2 01/01/19 09:18 117 42 100 Full Face 40 01/01/19 08:00 Bi-pap 01/01/19 08:00 40 01/01/19 07:45 99 Bi-Pap 40 01/01/19 07:41 120 36 97 Full Face 40 01/01/19 07:00 120 35 155/89 (111) 93 01/01/19 06:00 115 37 173/99 (123) 96 01/01/19 05:00 95 34 155/86 (109) 97 01/01/19 05:00 78 28 96 Full Face 40 Bi-Pap 01/01/19 04:00 98.9 103 28 170/73 (105) 97 01/01/19 04:00 Bi-pap 01/01/19 04:00 40 01/01/19 04:00 103 01/01/19 03:00 120 26 166/92 (116) 94 01/01/19 02:58 93 31 93 Full Face 40 Bi-Pap 01/01/19 02:00 76 26 131/72 (91) 96 01/01/19 01:11 96 25 75 Full Face 40 Bi-Pap 01/01/19 01:00 81 26 119/75 (90) 96 01/01/19 00:00 40 01/01/19 00:00 99.2 78 26 122/73 (89) 96 01/01/19 00:00 78 01/01/19 00:00 Bi-pap 12/31/18 23:15 96 25 78 Full Face 40 Bi-Pap 12/31/18 23:00 81 27 135/59 (84) 95 8/30/19 22:00 83 25 147/74 (98) 96 12/31/18 21:00 97 24 98 Full Face 39 Bi-Pap 12/31/18 21:00 90 27 129/60 (83) 96 12/31/18 20:19 98 Bi-Pap 45 12/31/18 20:03 85 28 100 Bi-Pap 40 87 27 97 12/31/18 20:00 40 12/31/18 20:00 Bi-pap 12/31/18 20:00 88 12/31/18 20:00 98.8 88 28 121/74 (90) 96 12/31/18 19:00 97 24 98 Full Face 40 Bi-Pap 12/31/18 19:00 94 31 137/92 (107) 96 12/31/18 18:00 127 33 139/99 (112) 96 12/31/18 17:05 116 33 97 Full Face 40 Bi-Pap 12/31/18 17:00 98.9 103 33 144/83 (103) 98 12/31/18 16:00 40 12/31/18 16:00 Bi-pap 12/31/18 16:00 148 12/31/18 16:00 136 33 148/98 (115) 98 12/31/18 15:00 141 33 164/101 (122) 98 12/31/18 14:48 143 41 100 Full Face 40 Bi-Pap 12/31/18 14:00 145 44 167/68 (101) 98 12/31/18 13:19 144 40 100 Facial 40 Bi-Pap 12/31/18 13:00 138 42 147/72 (97) 98 12/31/18 12:00 99.5 119 33 155/81 (105) 98 12/31/18 12:00 109 12/31/18 12:00 Bi-pap 12/31/18 12:00 40 12/31/18 11:18 115 42 100 Facial 40 115 42 100 Bi-Pap 40 12/31/18 11:17 121 46 97 Bi-Pap 40 115 44 100 12/31/18 11:00 130 33 166/80 (108) 98 12/31/18 10:00 130 33 144/95 (111) 98 Intake and Output 12/31/18 01/01/19 18:59 06:59 Intake Total 480 ml 480 ml Output Total 790 ml 2610 ml Balance -310 ml -2130 ml IV Total 480 ml 480 ml Output Urine Total 790 ml 2610 ml # Bowel Movements 1 4 Height (Feet): 5 Height (Inches): 9.00 Weight (Pounds): 302 General Appearance: mild distress EENT: other - BIPAP Cardiovascular: tachycardia Respiratory/Chest: decreased breath sounds Abdomen: distended Jerzy Boudreaux MD Jan 01, 2019 09:33
[2019-01-01] MEDS: Solu-MEDROL 40mg Inj IVP SCH (09:39)
[2019-01-01] MEDS: Pantoprazole Inj IVP SCH ×2 (09:39→21:55)
[2019-01-01] MEDS: Doxycycline Monohydrate 100mg ORAL SCH ×2 (09:39→21:55)
--- NOTE | 2019-01-01 10:09 | NUR ---
NURSE NOTES: Discussed with Dr Monsalve about pt agitation and restlessness. ordered stat ABG, CBC and BMP. Pt tachy 130s. Will continue to monitor.
[2019-01-01 11:09] LABS: BASOPHILS % (AUTO) 1.5 % (0.0-2.0); EOSINOPHILS % (AUTO) 0.8 % (0.0-3.0); HEMATOCRIT 37.7 % (37.0-47.0); HEMOGLOBIN 12.1 G/DL (12.0-16.0); LYMPHOCYTES % (AUTO) 22.7 % (20.0-45.0); MEAN CORPUSCULAR VOLUME 96 FL (80-99); MONOCYTES % (AUTO) 6.3 % (1.0-10.0); NEUTROPHILS % (AUTO) 68.8 % (45.0-75.0); PLATELET COUNT 234 K/UL (150-450); RED BLOOD COUNT 3.92 M/UL (4.20-5.40); RED CELL DISTRIBUTION WIDTH 13.3 % (11.6-14.8); WHITE BLOOD COUNT 15.2 K/UL (4.8-10.8)
[2019-01-01 11:13] LABS: ANION GAP 7 mmol/L (5-15); BLOOD UREA NITROGEN 14 mg/dL (7-18); CALCIUM 8.6 MG/DL (8.5-10.1); CARBON DIOXIDE 30 MMOL/L (21-32); CHLORIDE 105 MMOL/L (98-107); CREATININE 0.9 MG/DL (0.55-1.30); POTASSIUM 3.6 MMOL/L (3.5-5.1); SODIUM 142 MMOL/L (136-145)
--- NOTE | 2019-01-01 12:30 | NUR ---
NURSE NOTES: Pt given ativan for restlessness. Pt tachy 120s. Will continue to monitor.
--- NOTE | 2019-01-01 12:43 | Hematology/Onc Progress Note ---
Assessment/Plan Assessment/Plan Assessment and Recs: # Leukocytosis is likely due to steriods --> monitor steriod use --> accuchecks qac and qhs --> insulin as needed prn --> on ctx/doxy per id prn --> wbc 12-->15->17-->18-->14.3-->14-->15.2 --> smear reviewed and no blasts noted # Anemia of iron deficiency with decreased ferritin --> No evidence of hemolysis is noted, peripheral smear has been reviewed. --> Hgb goal >7. Transfuse prn. --> Iron has been ordered x 1 dose given stable hgb --> Medications have been reviewed --> low threshold for gi evaluation in case has occult + --> hgb trend 11.6-->12.2-->12.1 # Salicylate overdose now improved --> Medical management for salicylate overdose --> Sodium bicarbonate --> IVF started, as per renal --> now improved # Electrolyte correction --> replace k prn basis # Resp failure --> 12/29 extubated on nc --> bipap The timing of this note does not necessarily reflect the time of the patient was seen. GREATLY APPRECIATE CONSULTATION. Subjective Constitutional: Denies: no symptoms, chills, fever, malaise, weakness, other HEENT: Denies: no symptoms, eye pain, blurred vision, tearing, double vision, ear pain, ear discharge, nose pain, nose congestion, throat pain, throat swelling, mouth pain, mouth swelling, other Cardiovascular: Denies: no symptoms, chest pain, edema, irregular heart rate, lightheadedness, palpitations, syncope, other Respiratory: Denies: no symptoms, cough, shortness of breath, SOB with excertion, SOB at rest, sputum, wheezing, other Genitourinary: Denies: no symptoms, burning, discharge, frequency, flank pain, hematuria, incontinence, pain, urgency, other Neurologic/Psychiatric: Denies: no symptoms, anxiety, depressed, emotional problems, headache, numbness, paresthesia, pre-existing deficit, seizure, tingling, tremors, weakness, other Endocrine: Denies: no symptoms, excessive sweating, flushing, intolerance to cold, intolerance to heat, increased hunger, increased thirst, increased urine, unexplained weight gain, unexplained weight loss, other Allergies: Coded Allergies: No Known Allergies (Unverified , 11/07/13) Subjective 12/23: no events, no bleeding reported, tf held for potential extubation 12/24: icu, trach, agitated and confused, labs reviewed, abx, fentanyl 12/26: no bleeding, no chills, still on abx, fentayl, labs reviewed 12/27: dox and ctx, no bleeding sputum cultures reviewed 12/29: turned, repositioned, remains npo, labs noted 12/30: icu, restless, on abx, no signs of distress, labs reviewed, no fever 12/31: remain in icu, agitated, on seroquel, on restraints, labs reviewed 01/01: remains agitated and restless, on bipap in the icu Objective Objective Current Medications Medications (Trade) Dose Ordered Sig/Amaya Route PRN Reason Start Time Stop Time Status Last Admin Dose Admin Acetaminophen (Tylenol) 650 mg Q4H PRN ORAL FOR TEMP >100.5 12/30/18 12:30 01/22/19 07:29 Acetylcysteine (Mucomyst) 200 mg Q4HRT [facility] 12/24/18 23:00 01/23/19 12:59 12/31/18 20:01 Albuterol/ Ipratropium (Albuterol/ Ipratropium) 3 ml Q4HRT N 01/01/19 07:00 01/06/19 06:59 Clonidine HCl (Catapres Tab) 0.1 mg Q4H PRN ORAL bp over 165 syst 12/30/18 12:30 01/29/19 12:29 Dextrose (Dextrose 50%) 25 ml Q30M PRN IV Hypoglycemia 12/21/18 17:00 01/20/19 16:59 Dextrose (Dextrose 50%) 50 ml Q30M PRN IV Hypoglycemia 12/21/18 17:00 01/20/19 16:59 Dextrose/Sodium Chloride 1,000 ml @ 40 mls/hr Q24H IV 12/29/18 15:45 01/28/19 15:44 01/01/19 01:33 Docusate Sodium (Colace) 100 mg Q12HR ORAL 12/30/18 21:00 01/27/19 20:59 12/31/18 20:58 Doxycycline Monohydrate (Doxycycline Monohydrate) 100 mg EVERY 12 HOURS ORAL 12/30/18 21:00 01/03/19 13:29 01/01/19 09:39 Haloperidol Lactate (Haldol) 5 mg Q6H PRN IM Agitation 12/24/18 00:30 01/23/19 00:29 01/01/19 08:20 Insulin Aspart (NovoLOG) EVERY 6 HOURS SUBQ 12/21/18 18:00 01/20/19 17:59 12/29/18 17:56 Lactulose (Cephulac) 20 gm THREE TIMES A DAY ORAL 12/31/18 18:00 01/30/19 17:59 Lorazepam (Ativan 2mg/ml 1ml) 2 mg Q4H PRN IV For Anxiety 12/31/18 15:00 01/07/19 14:59 01/01/19 11:27 Methylprednisolone Sodium Succinate (Solu-MEDROL) 30 mg DAILY IVP 12/31/18 09:00 01/28/19 08:59 01/01/19 09:39 Pantoprazole (Protonix) 40 mg EVERY 12 HOURS IVP 12/22/18 11:00 01/21/19 10:59 01/01/19 09:39 Polyethylene Glycol (Miralax) 17 gm BEDTIME ORAL 12/31/18 21:00 01/30/19 20:59 12/31/18 20:59 Polyethylene Glycol (Miralax) 17 gm DAILYPRN PRN ORAL Constipation 12/30/18 12:30 01/27/19 10:29 Quetiapine Fumarate (SEROquel) 25 mg Q6H PRN ORAL Agitation 12/30/18 12:30 01/20/19 12:29 01/01/19 09:39 Last 24 Hour Vital Signs Date Time Temp Pulse Resp B/P (MAP) Pulse Ox O2 Delivery O2 Flow Rate FiO2 01/01/19 11:00 107 36 142/81 (101) 90 01/01/19 10:47 115 36 100 Full Face 40 01/01/19 10:00 134 36 138/71 (93) 100 01/01/19 09:18 117 42 100 Full Face 40 01/01/19 09:00 119 44 128/63 (84) 100 01/01/19 08:00 123 01/01/19 08:00 Bi-pap 01/01/19 08:00 40 01/01/19 08:00 98.2 132 32 171/91 (117) 100 01/01/19 07:45 99 Bi-Pap 40 01/01/19 07:41 120 36 97 Full Face 40 01/01/19 07:00 120 35 155/89 (111) 93 01/01/19 06:00 115 37 173/99 (123) 96 01/01/19 05:00 95 34 155/86 (109) 97 01/01/19 05:00 78 28 96 Full Face 40 Bi-Pap 01/01/19 04:00 98.9 103 28 170/73 (105) 97 01/01/19 04:00 Bi-pap 01/01/19 04:00 40 01/01/19 04:00 103 01/01/19 03:00 120 26 166/92 (116) 94 01/01/19 02:58 93 31 93 Full Face 40 Bi-Pap 01/01/19 02:00 76 26 131/72 (91) 96 01/01/19 01:11 96 25 75 Full Face 40 Bi-Pap 01/01/19 01:00 81 26 119/75 (90) 96 01/01/19 00:00 40 01/01/19 00:00 99.2 78 26 122/73 (89) 96 01/01/19 00:00 78 01/01/19 00:00 Bi-pap 12/31/18 23:15 96 25 78 Full Face 40 Bi-Pap 12/31/18 23:00 81 27 135/59 (84) 95 12/31/18 22:00 83 25 147/74 (98) 96 12/31/18 21:00 97 24 98 Full Face 39 Bi-Pap 12/31/18 21:00 90 27 129/60 (83) 96 12/31/18 20:19 98 Bi-Pap 45 12/31/18 20:03 85 28 100 Bi-Pap 40 87 27 97 12/31/18 20:00 40 12/31/18 20:00 Bi-pap 12/31/18 20:00 88 12/31/18 20:00 98.8 88 28 121/74 (90) 96 12/31/18 19:00 97 24 98 Full Face 40 Bi-Pap 12/31/18 19:00 94 31 137/92 (107) 96 12/31/18 18:00 127 33 139/99 (112) 96 12/31/18 17:05 116 33 97 Full Face 40 Bi-Pap 12/31/18 17:00 98.9 103 33 144/83 (103) 98 12/31/18 16:00 40 12/31/18 16:00 Bi-pap 12/31/18 16:00 148 12/31/18 16:00 136 33 148/98 (115) 98 12/31/18 15:00 141 33 164/101 (122) 98 12/31/18 14:48 143 41 100 Full Face 40 Bi-Pap 12/31/18 14:00 145 44 167/68 (101) 98 12/31/18 13:19 144 40 100 Facial 40 Bi-Pap 12/31/18 13:00 138 42 147/72 (97) 98 12/31/18 12:00 99.5 119 33 155/81 (105) 98 12/31/18 12:00 109 12/31/18 12:00 Bi-pap 12/31/18 12:00 40 12/31/18 11:18 115 42 100 Facial 40 115 42 100 Bi-Pap 40 12/31/18 11:17 121 46 97 Bi-Pap 40 115 44 100 12/31/18 11:00 130 33 166/80 (108) 98 12/31/18 10:00 130 33 144/95 (111) 98 12/31/18 09:00 126 33 158/140 (146) 98 12/31/18 08:52 110 33 100 Facial 40 12/31/18 08:11 100 Bi-Pap 45 12/31/18 08:11 107 29 100 Facial 45 101 33 100 Bi-Pap 40 12/31/18 08:11 102 33 100 Bi-Pap 45 102 28 100 12/31/18 08:00 Bi-pap 12/31/18 08:00 99.2 101 33 131/113 (119) 98 12/31/18 08:00 45 12/31/18 08:00 121 12/31/18 07:00 127 33 131/113 (119) 98 12/31/18 06:00 96 30 153/101 (118) 97 12/31/18 05:25 107 22 97 Facial 40 12/31/18 05:00 112 26 147/77 (100) 97 12/31/18 04:00 40 12/31/18 04:00 120 12/31/18 04:00 98.6 93 30 151/70 (97) 93 12/31/18 04:00 Bi-pap 12/31/18 03:18 91 24 100 Facial 40 93 22 100 Bi-Pap 12/31/18 03:18 93 22 100 Bi-Pap 40 91 24 100 12/31/18 03:00 77 26 132/84 (100) 100 12/31/18 02:00 85 27 130/62 (84) 98 12/31/18 01:28 91 27 96 Facial 40 12/31/18 01:00 88 26 135/65 (88) 98 12/31/18 00:38 107 21 98 Facial 40 12/31/18 00:20 97 13 99 Facial 40 111 23 98 Bi-Pap 12/31/18 00:20 111 23 98 Bi-Pap 40 99 24 97 12/31/18 00:00 Bi-pap 12/31/18 00:00 99.5 83 32 129/86 (100) 96 12/30/18 23:00 90 23 142/73 (96) 98 12/30/18 22:00 87 18 140/56 (84) 98 12/30/18 21:04 82 21 98 Facial 40 12/30/18 21:00 82 29 157/67 (97) 99 12/30/18 20:48 98 Bi-Pap 40 12/30/18 20:48 Bi-Pap 40 12/30/18 20:48 85 29 98 Facial 40 85 29 98 Bi-Pap 12/30/18 20:00 88 12/30/18 20:00 40 12/30/18 20:00 98.2 99 24 137/68 (91) 97 12/30/18 20:00 Bi-pap 12/30/18 19:00 115 28 150/70 (96) 99 12/30/18 18:00 93 29 130/74 (92) 12/30/18 17:00 97.6 82 27 129/79 (96) 98 12/30/18 16:57 84 30 97 Facial 40 12/30/18 16:00 Bi-pap 12/30/18 16:00 40 8/29/19 16:00 102 12/30/18 16:00 97 31 129/66 (87) 97 12/30/18 15:24 94 29 100 Bi-Pap 40 97 30 100 12/30/18 15:24 101 27 98 Facial 40 96 31 98 Bi-Pap 40 12/30/18 15:00 105 28 123/72 (89) 97 12/30/18 14:00 99 32 143/81 (101) 97 12/30/18 13:35 93 33 98 Facial 40 12/30/18 13:00 123 34 154/83 (106) 97 Intake and Output 12/31/18 01/01/19 18:59 06:59 Intake Total 480 ml 480 ml Output Total 790 ml 2610 ml Balance -310 ml -2130 ml IV Total 480 ml 480 ml Output Urine Total 790 ml 2610 ml # Bowel Movements 1 4 Labs Test 12/30/18 03:50 12/30/18 12:30 12/31/18 04:22 12/31/18 07:15 White Blood Count 14.3 K/UL (4.8-10.8) 14.0 K/UL (4.8-10.8) Red Blood Count 3.94 M/UL (4.20-5.40) 3.87 M/UL (4.20-5.40) Hemoglobin 12.2 G/DL (12.0-16.0) 12.1 G/DL (12.0-16.0) Hematocrit 38.8 % (37.0-47.0) 38.2 % (37.0-47.0) Mean Corpuscular Volume 99 FL (80-99) 99 FL (80-99) Mean Corpuscular Hemoglobin 30.9 PG (27.0-31.0) 31.2 PG (27.0-31.0) Mean Corpuscular Hemoglobin Concent 31.3 G/DL (32.0-36.0) 31.6 G/DL (32.0-36.0) Red Cell Distribution Width 14.4 % (11.6-14.8) 14.0 % (11.6-14.8) Platelet Count 231 K/UL (150-450) 227 K/UL (150-450) Mean Platelet Volume 5.1 FL (6.5-10.1) 5.1 FL (6.5-10.1) Neutrophils (%) (Auto) 66.7 % (45.0-75.0) 63.4 % (45.0-75.0) Lymphocytes (%) (Auto) 23.2 % (20.0-45.0) 28.3 % (20.0-45.0) Monocytes (%) (Auto) 8.5 % (1.0-10.0) 6.7 % (1.0-10.0) Eosinophils (%) (Auto) 0.1 % (0.0-3.0) 0.4 % (0.0-3.0) Basophils (%) (Auto) 1.5 % (0.0-2.0) 1.2 % (0.0-2.0) Sodium Level 145 MMOL/L (136-145) 145 MMOL/L (136-145) Potassium Level 4.6 MMOL/L (3.5-5.1) 3.9 MMOL/L (3.5-5.1) Chloride Level 110 MMOL/L (98-107) 109 MMOL/L (98-107) Carbon Dioxide Level 29 MMOL/L (21-32) 31 MMOL/L (21-32) Anion Gap 6 mmol/L (5-15) 5 mmol/L (5-15) Blood Urea Nitrogen 15 mg/dL (7-18) 15 mg/dL (7-18) Creatinine 0.9 MG/DL (0.55-1.30) 1.1 MG/DL (0.55-1.30) Estimat Glomerular Filtration Rate > 60 mL/min (>60) > 60 mL/min (>60) Glucose Level 99 MG/DL (74-106) 99 MG/DL (74-106) Calcium Level 8.6 MG/DL (8.5-10.1) 8.7 MG/DL (8.5-10.1) Arterial Blood pH 7.361 (7.350-7.450) 7.399 (7.350-7.450) Arterial Blood Partial Pressure CO2 49.6 mmHg (35.0-45.0) 47.4 mmHg (35.0-45.0) Arterial Blood Partial Pressure O2 67.1 mmHg (75.0-100.0) 79.6 mmHg (75.0-100.0) Arterial Blood HCO3 27.5 mmol/L (22.0-26.0) 28.6 mmol/L (22.0-26.0) Arterial Blood Oxygen Saturation 93.1 % (95-100) 95.1 % (95-100) Arterial Blood Base Excess 1.4 (-2-2) 3.1 (-2-2) Luis Test Positive Positive Uric Acid 3.6 MG/DL (2.6-7.2) Phosphorus Level 3.5 MG/DL (2.5-4.9) Magnesium Level 2.2 MG/DL (1.8-2.4) Total Bilirubin 0.5 MG/DL (0.2-1.0) Aspartate Amino Transf (AST/SGOT) 24 U/L (15-37) Alanine Aminotransferase (ALT/SGPT) 68 U/L (12-78) Alkaline Phosphatase 64 U/L (46-116) C-Reactive Protein, Quantitative 6.9 mg/dL (0.00-0.90) Pro-B-Type Natriuretic Peptide 175 pg/mL (0-125) Total Protein 6.4 G/DL (6.4-8.2) Albumin 2.8 G/DL (3.4-5.0) Globulin 3.6 g/dL Albumin/Globulin Ratio 0.8 (1.0-2.7) Test 01/01/19 10:10 01/01/19 10:51 Arterial Blood pH 7.402 (7.350-7.450) Arterial Blood Partial Pressure CO2 42.5 mmHg (35.0-45.0) Arterial Blood Partial Pressure O2 85.2 mmHg (75.0-100.0) Arterial Blood HCO3 25.9 mmol/L (22.0-26.0) Arterial Blood Oxygen Saturation 95.8 % (95-100) Arterial Blood Base Excess 0.9 (-2-2) Luis Test Positive White Blood Count 15.2 K/UL (4.8-10.8) Red Blood Count 3.92 M/UL (4.20-5.40) Hemoglobin 12.1 G/DL (12.0-16.0) Hematocrit 37.7 % (37.0-47.0) Mean Corpuscular Volume 96 FL (80-99) Mean Corpuscular Hemoglobin 30.8 PG (27.0-31.0) Mean Corpuscular Hemoglobin Concent 32.0 G/DL (32.0-36.0) Red Cell Distribution Width 13.3 % (11.6-14.8) Platelet Count 234 K/UL (150-450) Mean Platelet Volume 5.0 FL (6.5-10.1) Neutrophils (%) (Auto) 68.8 % (45.0-75.0) Lymphocytes (%) (Auto) 22.7 % (20.0-45.0) Monocytes (%) (Auto) 6.3 % (1.0-10.0) Eosinophils (%) (Auto) 0.8 % (0.0-3.0) Basophils (%) (Auto) 1.5 % (0.0-2.0) Sodium Level 142 MMOL/L (136-145) Potassium Level 3.6 MMOL/L (3.5-5.1) Chloride Level 105 MMOL/L (98-107) Carbon Dioxide Level 30 MMOL/L (21-32) Anion Gap 7 mmol/L (5-15) Blood Urea Nitrogen 14 mg/dL (7-18) Creatinine 0.9 MG/DL (0.55-1.30) Estimat Glomerular Filtration Rate > 60 mL/min (>60) Glucose Level 103 MG/DL (74-106) Calcium Level 8.6 MG/DL (8.5-10.1) Height (Feet): 5 Height (Inches): 9.00 Weight (Pounds): 302 Objective Physical Exam General Appearance: well appearing, nad, obese Head: normocephalic ++ ogt Resp: normal breath sounds bipap++ Cardiovascular: normal rate Gastrointestinal: normal inspection, non tender, soft, normal bowel sounds, non -distended Msk: normal inspection, back normal Skin: normal inspection, normal color, no rash, warm/dry, palpation normal, well hydrated Lymphatic: normal inspection, no adenopathy Wade Bonds MD Jan 01, 2019 12:43
--- NOTE | 2019-01-01 15:07 | NUR ---
NURSE NOTES: Haldol 5mg IM given for agitation. Pt ST 120s. Will continue to monitor.
[2019-01-01] MEDS ORDERED: LORazepam Inj 2mg/ml 1ml IV PRN (15:30)
--- NOTE | 2019-01-01 16:39 | NUR ---
NURSE NOTES: Pt turned and repositioned. Pt had large BM. Will continue to monitor.
--- NOTE | 2019-01-01 17:06 | NUR ---
NURSE NOTES: Called Dr Cooney regarding patient's anxiety. Primary RN is having great difficulty with patient who attempts to pull off her BIPAP and who tries to get up and out of bed despite being restrained. Several times today she has been repositioned due to her trying to get out of her restraints. Requested Dr Canchola to review MAR to assist with management of patient behavior to not necessarily sedate but for behavioral issues. LM. Awaiting for MD to return the call
--- NOTE | 2019-01-01 17:50 | Pulmonolgy Critical Care Note ---
Critical Care - Asmt/Plan Assessment/Plan: Pulmonary CCM Progress Note HPI Patient is a 58-year-old woman with apparent history of Obstructive Airways Disease, Schizophrenia, Obesity, presented with shortness of breath, increased anxiety. S/p extubation. Remains on PRN BiPAP Noted to have elevated ASA level on admission FIO2 reduced , AB per ID Remains agitated at times, Psychiatry following Physical Exam Vital Signs Noted General Appearance: normal inspection, obese, awake Head: NCAT ENT: Moist mm, JVP not visible Neck: normal inspection, full range of motion, supple, no bony tend Respiratory: normal inspection, no respiratory distress, no retraction, no wheezing, reduced basal BS Cardiovascular: regular rate, rhythm, Normal HS1, HS2 Gastrointestinal: normal inspection, normal bowel sounds, non tender, soft, no guarding, no hernia Genitourinary: no CVA tenderness Musculoskeletal: normal inspection, minimal edema Neurologic: no focal signs noted, follows commands Impression: Respiratory failure - sp extubation Previously elevated Salicylate level Pneumonia Possible Congestive Heart Failure Salicylate overdose Schizophrenia/Psychosis Asthma Obesity Plan: Adjust FIO2, BiPAP PRN - wean as tolerated ABG CXR ID following IV Solumedrol reduced Sedation per Psychiatry - minimize Benzodiazepines if possible Aspiration precautions HHN ISS [employer] med PRN Sedation PPX Keep negative balance ST eval Labs Noted CXR: ETT appropriate, basal infiltrates, vascular congestion Critical Care - Objective Last 24 Hour Vital Signs Date Time Temp Pulse Resp B/P (MAP) Pulse Ox O2 Delivery O2 Flow Rate FiO2 01/01/19 16:39 120 42 95 Full Face 40 01/01/19 16:00 98.9 128 22 164/100 (121) 98 01/01/19 16:00 40 01/01/19 16:00 Bi-pap 01/01/19 15:00 132 38 137/91 (106) 97 01/01/19 14:59 143 35 100 Full Face 40 01/01/19 14:00 99 59 139/75 (96) 95 01/01/19 13:11 118 15 97 Full Face 40 01/01/19 13:00 118 13 135/77 (96) 96 01/01/19 12:00 141 01/01/19 12:00 99.0 132 41 150/103 (119) 97 01/01/19 12:00 40 01/01/19 12:00 Bi-pap 01/01/19 11:00 107 36 142/81 (101) 90 01/01/19 10:47 115 36 100 Full Face 40 01/01/19 10:00 134 36 138/71 (93) 100 01/01/19 09:18 117 42 100 Full Face 40 01/01/19 09:00 119 44 128/63 (84) 100 01/01/19 08:00 123 01/01/19 08:00 Bi-pap 01/01/19 08:00 40 01/01/19 08:00 98.2 132 32 171/91 (117) 100 01/01/19 07:45 99 Bi-Pap 40 01/01/19 07:41 120 36 97 Full Face 40 01/01/19 07:00 120 35 155/89 (111) 93 01/01/19 06:00 115 37 173/99 (123) 96 01/01/19 05:00 95 34 155/86 (109) 97 01/01/19 05:00 78 28 96 Full Face 40 Bi-Pap 01/01/19 04:00 98.9 103 28 170/73 (105) 97 01/01/19 04:00 Bi-pap 01/01/19 04:00 40 01/01/19 04:00 103 01/01/19 03:00 120 26 166/92 (116) 94 01/01/19 02:58 93 31 93 Full Face 40 Bi-Pap 01/01/19 02:00 76 26 131/72 (91) 96 01/01/19 01:11 96 25 75 Full Face 40 Bi-Pap 01/01/19 01:00 81 26 119/75 (90) 96 01/01/19 00:00 40 01/01/19 00:00 99.2 78 26 122/73 (89) 96 01/01/19 00:00 78 01/01/19 00:00 Bi-pap 12/31/18 23:15 96 25 78 Full Face 40 Bi-Pap 12/31/18 23:00 81 27 135/59 (84) 95 12/31/18 22:00 83 25 147/74 (98) 96 12/31/18 21:00 97 24 98 Full Face 39 Bi-Pap 12/31/18 21:00 90 27 129/60 (83) 96 12/31/18 20:19 98 Bi-Pap 45 12/31/18 20:03 85 28 100 Bi-Pap 40 87 27 97 12/31/18 20:00 40 12/31/18 20:00 Bi-pap 12/31/18 20:00 88 12/31/18 20:00 98.8 88 28 121/74 (90) 96 12/31/18 19:00 97 24 98 Full Face 40 Bi-Pap 12/31/18 19:00 94 31 137/92 (107) 96 12/31/18 18:00 127 33 139/99 (112) 96 Accucheck: 86 Critical Care - Subjective ROS Limited/Unobtainable: No FI02: 40 Vent Support Breath Rate: 24 Vent Support Mode: BiLevel Vent Tidal Volume: 550 Sputum Amount: None PEEP: 5.0 PIP: 14 Tube Feeding Amount: 40 I&O: Intake and Output 12/31/18 01/01/19 19:00 07:00 Intake Total 480 ml 440 ml Output Total 2760 ml 660 ml Balance -2280 ml -220 ml IV Total 480 ml 440 ml Output Urine Total 2760 ml 660 ml # Bowel Movements 2 3 ET-Tube: 7.0 ET Position: 22 Kevan Monsalve MD Jan 01, 2019 17:49
[2019-01-01] MEDS ORDERED: OLANZapine 10mg tab ORAL SCH (18:45)
--- NOTE | 2019-01-01 18:47 | NUR ---
NURSE NOTES: Dr Canchola called back and made some adjustments to her agitation and psych meds. Pt resting comfortably. Will continue to monitor.
--- NOTE | 2019-01-01 19:14 | NUR ---
HAND-OFF: Report given to Noble LIMA.
--- NOTE | 2019-01-01 19:20 | NUR ---
NURSE NOTES: Received report from CLARENCE Smith. Patient is awake and responsive to verbal and tactile stimuli. On Bipap 13/6 with FiO2 40%, O2sat 99%-100% on monitor. Mon intact and draining by gravity with brown color urine. Left wrist 20G and left hand 20G IV intact and running with D51/2NS @ 40ml/hr. Bilateral soft bands restraints on. Skin intact and clean on restraints site. Kept dry, clean and comfortable. Will continue plan of care.
--- NOTE | 2019-01-01 19:39 | NUR ---
RESPIRATORY NOTE: Pt received on Bipap settings 13/6, PS 7, FiO2 40%. EtCO2 hooked to monitor. Pt displays shallow breathing and tachypnea. Bilateral diminished breath sounds upon auscultation. Alarms on and audible. Ambubag present at bedside. Will continue to monitor.
--- NOTE | 2019-01-01 20:20 | NUR ---
NURSE NOTES: Repositioned patient. No change in condition.
[2019-01-01] MEDS: Miralax 17gm pkt ORAL SCH (21:00)
--- NOTE | 2019-01-01 21:50 | NUR ---
NURSE NOTES: All due med given and repositioned patient. Will continue plan of care.
[2019-01-01] MEDS: OLANZapine 10mg tab ORAL SCH (21:55)
--- NOTE | 2019-01-01 22:11 | General Progress Note ---
Assessment/Plan Problem List: (1) Opioid dependence ICD Codes: F11.20 - Opioid dependence, uncomplicated SNOMED: 92374893 (2) Altered level of consciousness ICD Codes: R40.4 - Transient alteration of awareness SNOMED: 7165110 (3) Back pain ICD Codes: M54.9 - Dorsalgia, unspecified SNOMED: 601924344 (4) Opiate dependence ICD Codes: F11.20 - Opioid dependence, uncomplicated SNOMED: 18382354 (5) Depression ICD Codes: F32.9 - Major depressive disorder, single episode, unspecified SNOMED: 61942368 (6) Peripheral edema ICD Codes: R60.9 - Edema, unspecified SNOMED: 706574799 (7) Leg pain ICD Codes: M79.606 - Pain in leg, unspecified SNOMED: 72299487 (8) Headache ICD Codes: R51 - Headache SNOMED: 42369595 (9) COPD exacerbation ICD Codes: J44.1 - Chronic obstructive pulmonary disease with (acute) exacerbation SNOMED: 386309553 (10) Psychosis ICD Codes: F29 - Unsp psychosis not due to a substance or known physiol cond SNOMED: 15985550 (11) Respiratory failure ICD Codes: J96.90 - Respiratory failure, unspecified, unspecified whether with hypoxia or hypercapnia SNOMED: 630618930 (12) Salicylate overdose ICD Codes: T39.091A - Poisoning by salicylates, accidental (unintentional), initial encounter SNOMED: 790199131, 4503029 (13) Asthma ICD Codes: J45.909 - Unspecified asthma, uncomplicated SNOMED: 939242508, 6607954 (14) Anemia ICD Codes: D64.9 - Anemia, unspecified SNOMED: 756887349 Status: progressing, unchanged Assessment/Plan: salicylate overdose lethargic resp failure asthma anemia h/h is stable no change rt to do cpt reviewed chart and labs Subjective ROS Limited/Unobtainable: Yes Allergies: Coded Allergies: No Known Allergies (Unverified , 11/07/13) Objective Last 24 Hour Vital Signs Date Time Temp Pulse Resp B/P (MAP) Pulse Ox O2 Delivery O2 Flow Rate FiO2 01/01/19 20:00 Bi-pap 01/01/19 20:00 40 01/01/19 19:39 95 21 100 Full Face 40 106 21 100 Bi-Pap 40 01/01/19 19:28 100 Bi-Pap 40 01/01/19 19:00 98 24 164/74 (104) 100 01/01/19 18:00 119 14 150/79 (102) 100 01/01/19 17:00 137 50 167/95 (119) 98 01/01/19 16:39 120 42 95 Facial 40 01/01/19 16:00 122 01/01/19 16:00 98.9 128 22 164/100 (121) 98 01/01/19 16:00 40 01/01/19 16:00 Bi-pap 01/01/19 15:00 132 38 137/91 (106) 97 01/01/19 14:59 143 35 100 Full Face 40 01/01/19 14:00 99 59 139/75 (96) 95 01/01/19 13:11 118 15 97 Full Face 40 01/01/19 13:00 118 13 135/77 (96) 96 01/01/19 12:00 141 01/01/19 12:00 99.0 132 41 150/103 (119) 97 01/01/19 12:00 40 01/01/19 12:00 Bi-pap 01/01/19 11:00 107 36 142/81 (101) 90 01/01/19 10:47 115 36 100 Full Face 40 01/01/19 10:00 134 36 138/71 (93) 100 01/01/19 09:18 117 42 100 Full Face 40 01/01/19 09:00 119 44 128/63 (84) 100 01/01/19 08:00 123 01/01/19 08:00 Bi-pap 01/01/19 08:00 40 01/01/19 08:00 98.2 132 32 171/91 (117) 100 01/01/19 07:45 99 Bi-Pap 40 01/01/19 07:41 120 36 97 Full Face 40 01/01/19 07:00 120 35 155/89 (111) 93 01/01/19 06:00 115 37 173/99 (123) 96 01/01/19 05:00 95 34 155/86 (109) 97 01/01/19 05:00 78 28 96 Full Face 40 Bi-Pap 01/01/19 04:00 98.9 103 28 170/73 (105) 97 01/01/19 04:00 Bi-pap 01/01/19 04:00 40 01/01/19 04:00 103 01/01/19 03:00 120 26 166/92 (116) 94 01/01/19 02:58 93 31 93 Full Face 40 Bi-Pap 01/01/19 02:00 76 26 131/72 (91) 96 01/01/19 01:11 96 25 75 Full Face 40 Bi-Pap 01/01/19 01:00 81 26 119/75 (90) 96 01/01/19 00:00 40 01/01/19 00:00 99.2 78 26 122/73 (89) 96 01/01/19 00:00 78 01/01/19 00:00 Bi-pap 12/31/18 23:15 96 25 78 Full Face 40 Bi-Pap 12/31/18 23:00 81 27 135/59 (84) 95 Intake and Output 12/31/18 01/01/19 19:00 07:00 Intake Total 480 ml 440 ml Output Total 2760 ml 660 ml Balance -2280 ml -220 ml IV Total 480 ml 440 ml Output Urine Total 2760 ml 660 ml # Bowel Movements 2 3 Laboratory Tests 01/01/19 10:10: Arterial Blood pH 7.402, Arterial Blood Partial Pressure CO2 42.5, Arterial Blood Partial Pressure O2 85.2, Arterial Blood HCO3 25.9, Arterial Blood Oxygen Saturation 95.8, Arterial Blood Base Excess 0.9, Luis Test Positive 01/01/19 10:51: White Blood Count 15.2H, Red Blood Count 3.92L, Hemoglobin 12.1, Hematocrit 37.7 , Mean Corpuscular Volume 96, Mean Corpuscular Hemoglobin 30.8, Mean Corpuscular Hemoglobin Concent 32.0, Red Cell Distribution Width 13.3, Platelet Count 234, Mean Platelet Volume 5.0L, Neutrophils (%) (Auto) 68.8, Lymphocytes ( %) (Auto) 22.7, Monocytes (%) (Auto) 6.3, Eosinophils (%) (Auto) 0.8, Basophils (%) (Auto) 1.5, Sodium Level 142, Potassium Level 3.6, Chloride Level 105, Carbon Dioxide Level 30, Anion Gap 7, Blood Urea Nitrogen 14, Creatinine 0.9, Estimat Glomerular Filtration Rate > 60, Glucose Level 103, Calcium Level 8.6 Height (Feet): 5 Height (Inches): 9.00 Weight (Pounds): 302 Cardiovascular: normal rate Respiratory/Chest: lungs clear Jasmine Joe MD Jan 01, 2019 22:11
--- NOTE | 2019-01-01 23:30 | NUR ---
NURSE NOTES: Provided oral care. On bipap / 40%. Will continue plan of care.
[2019-01-02] VITALS (24 sets, daily range): BP systolic 95–174; BP diastolic 49–100
--- NOTE | 2019-01-02 01:42 | NUR ---
NURSE NOTES: Repositioned patient. and kept dry, clean and comfortable.
[2019-01-02] MEDS: Albuterol/Ipratropium 3ml neb HHN SCH ×6 (02:37→23:21)
[2019-01-02] MEDS: Acetylcysteine 20% Soln 4ml HHN SCH ×6 (02:37→23:21)
--- NOTE | 2019-01-02 04:13 | NUR ---
NURSE NOTES: Bed bath given. Patient was able to assist to turn and tolerating well.
[2019-01-02 05:49] LABS: BASOPHILS % (AUTO) 0.7 % (0.0-2.0); EOSINOPHILS % (AUTO) 0.3 % (0.0-3.0); HEMATOCRIT 37.4 % (37.0-47.0); LYMPHOCYTES % (AUTO) 16.1 % (20.0-45.0); MEAN CORPUSCULAR VOLUME 96 FL (80-99); MONOCYTES % (AUTO) 5.4 % (1.0-10.0); NEUTROPHILS % (AUTO) 77.6 % (45.0-75.0); PLATELET COUNT 232 K/UL (150-450); RED BLOOD COUNT 3.89 M/UL (4.20-5.40); WHITE BLOOD COUNT 14.2 K/UL (4.8-10.8)
[2019-01-02 06:00] LABS: ALANINE AMINOTRANSFERASE 51 U/L (12-78); ALBUMIN 2.6 G/DL (3.4-5.0); ALBUMIN/GLOBULIN RATIO 0.7 (1.0-2.7); ALKALINE PHOSPHATASE 66 U/L (46-116); ANION GAP 8 mmol/L (5-15); ASPARTATE AMINO TRANSFERASE 22 U/L (15-37); BILIRUBIN,TOTAL 0.5 MG/DL (0.2-1.0); BLOOD UREA NITROGEN 13 mg/dL (7-18); CALCIUM 8.7 MG/DL (8.5-10.1); CARBON DIOXIDE 29 MMOL/L (21-32); CHLORIDE 104 MMOL/L (98-107); CREATININE 0.8 MG/DL (0.55-1.30); POTASSIUM 4.1 MMOL/L (3.5-5.1); SODIUM 141 MMOL/L (136-145)
[2019-01-02] MEDS: NovoLOG Insulin Flexpen SUBQ SCH ×3 (06:00→18:00)
--- NOTE | 2019-01-02 06:40 | NUR ---
NURSE NOTES: Seen by Dr. Monsalve and new order carried out.
--- NOTE | 2019-01-02 07:00 | NUR ---
RESPIRATORY NOTES: Received Patient on BIPAP 13/6 PS +7 BUR 14 Fio2 40%. Patient currently on facial mask with tape in place, no redness or skin breakdown noted. Patient currently restrained and slightly agitated. BIPAP plugged into red outlet. Alarms are on and audible. Will continue to monitor throughout the day.
--- NOTE | 2019-01-02 07:20 | NUR ---
HAND-OFF: Report given to CLARENCE Caraballo. Endorsed plan of care.
--- NOTE | 2019-01-02 07:23 | General Progress Note ---
Assessment/Plan Status: progressing, unchanged Assessment/Plan: Problems: (1) Anemia ICD Codes: D64.9 - Anemia, unspecified SNOMED: 946959187 (2) Salicylate overdose ICD Codes: T39.091A - Poisoning by salicylates, accidental (unintentional), initial encounter SNOMED: 849979185, 4598888 (3) Respiratory failure ICD Codes: J96.90 - Respiratory failure, unspecified, unspecified whether with hypoxia or hypercapnia SNOMED: 941102260 (4) Suicidal intent ICD Codes: R45.851 - Suicidal ideations SNOMED: 171892667 Status: unchanged Status Narrative Discussed with Dr. Saldana. Assessment/Plan No plans for GI procedures at this time Medical management for salicylate overdose on BIPAP Electrolyte correction anemia work up OB stool r/o GI bleed monitor H&H, prn transfusions bowel regimen with colace, miralax and lactulose ppi fu labs Subjective ROS Limited/Unobtainable: No Allergies: Coded Allergies: No Known Allergies (Unverified , 11/07/13) Objective Last 24 Hour Vital Signs Date Time Temp Pulse Resp B/P (MAP) Pulse Ox O2 Delivery O2 Flow Rate FiO2 01/02/19 07:08 100 Bi-Pap 40 01/02/19 07:06 84 25 98 Full Face 40 86 25 100 Bi-Pap 40 01/02/19 07:00 90 25 115/49 (71) 98 01/02/19 06:00 93 29 117/55 (75) 98 01/02/19 05:00 108 26 120/66 (84) 99 01/02/19 04:51 82 31 100 Facial 40 01/02/19 04:00 88 01/02/19 04:00 40 01/02/19 04:00 99.0 91 23 125/67 (86) 98 01/02/19 04:00 Bi-pap 01/02/19 03:00 124 37 120/86 (97) 98 01/02/19 02:33 87 36 99 Full Face 40 87 37 99 Bi-Pap 40 01/02/19 02:00 115 30 134/68 (90) 98 01/02/19 01:06 81 29 96 Facial 40 01/02/19 01:00 78 41 127/61 (83) 97 01/02/19 00:00 Bi-pap 01/02/19 00:00 40 01/02/19 00:00 72 01/02/19 00:00 99.3 84 31 119/100 (106) 100 01/01/19 23:49 72 25 100 Full Face 40 76 25 100 Bi-Pap 40 01/01/19 23:00 82 30 110/59 (76) 100 01/01/19 22:00 80 26 101/61 (74) 100 01/01/19 21:16 79 27 100 Facial 40 01/01/19 21:00 95 29 116/59 (78) 99 01/01/19 20:00 Bi-pap 01/01/19 20:00 89 01/01/19 20:00 40 01/01/19 20:00 99.0 112 30 130/60 (83) 100 01/01/19 19:39 95 21 100 Full Face 40 106 21 100 Bi-Pap 40 01/01/19 19:28 100 Bi-Pap 40 01/01/19 19:00 98 24 164/74 (104) 100 01/01/19 18:00 119 14 150/79 (102) 100 01/01/19 17:00 137 50 167/95 (119) 98 01/01/19 16:39 120 42 95 Facial 40 01/01/19 16:00 122 01/01/19 16:00 98.9 128 22 164/100 (121) 98 01/01/19 16:00 40 01/01/19 16:00 Bi-pap 01/01/19 15:00 132 38 137/91 (106) 97 01/01/19 14:59 143 35 100 Full Face 40 01/01/19 14:00 99 59 139/75 (96) 95 01/01/19 13:11 118 15 97 Full Face 40 01/01/19 13:00 118 13 135/77 (96) 96 01/01/19 12:00 141 01/01/19 12:00 99.0 132 41 150/103 (119) 97 01/01/19 12:00 40 01/01/19 12:00 Bi-pap 01/01/19 11:00 107 36 142/81 (101) 90 01/01/19 10:47 115 36 100 Full Face 40 01/01/19 10:00 134 36 138/71 (93) 100 01/01/19 09:18 117 42 100 Full Face 40 01/01/19 09:00 119 44 128/63 (84) 100 01/01/19 08:00 123 01/01/19 08:00 Bi-pap 01/01/19 08:00 40 01/01/19 08:00 98.2 132 32 171/91 (117) 100 01/01/19 07:45 99 Bi-Pap 40 01/01/19 07:41 120 36 97 Full Face 40 Intake and Output 01/01/19 01/02/19 19:00 07:00 Intake Total 480 ml 480 ml Output Total 410 ml 510 ml Balance 70 ml -30 ml IV Total 480 ml 480 ml Output Urine Total 410 ml 510 ml # Bowel Movements 3 1 Laboratory Tests 01/01/19 10:10: Arterial Blood pH 7.402, Arterial Blood Partial Pressure CO2 42.5, Arterial Blood Partial Pressure O2 85.2, Arterial Blood HCO3 25.9, Arterial Blood Oxygen Saturation 95.8, Arterial Blood Base Excess 0.9, Luis Test Positive 01/01/19 10:51: White Blood Count 15.2H, Red Blood Count 3.92L, Hemoglobin 12.1, Hematocrit 37.7 , Mean Corpuscular Volume 96, Mean Corpuscular Hemoglobin 30.8, Mean Corpuscular Hemoglobin Concent 32.0, Red Cell Distribution Width 13.3, Platelet Count 234, Mean Platelet Volume 5.0L, Neutrophils (%) (Auto) 68.8, Lymphocytes ( %) (Auto) 22.7, Monocytes (%) (Auto) 6.3, Eosinophils (%) (Auto) 0.8, Basophils (%) (Auto) 1.5, Sodium Level 142, Potassium Level 3.6, Chloride Level 105, Carbon Dioxide Level 30, Anion Gap 7, Blood Urea Nitrogen 14, Creatinine 0.9, Estimat Glomerular Filtration Rate > 60, Glucose Level 103, Calcium Level 8.6 01/02/19 04:45: White Blood Count 14.2H, Red Blood Count 3.89L, Hemoglobin 12.0, Hematocrit 37.4 , Mean Corpuscular Volume 96, Mean Corpuscular Hemoglobin 31.0, Mean Corpuscular Hemoglobin Concent 32.2, Red Cell Distribution Width 13.0, Platelet Count 232, Mean Platelet Volume 5.1L, Neutrophils (%) (Auto) 77.6H, Lymphocytes (%) (Auto) 16.1L, Monocytes (%) (Auto) 5.4, Eosinophils (%) (Auto) 0.3, Basophils (%) (Auto) 0.7 01/02/19 04:57: Sodium Level 141, Potassium Level 4.1, Chloride Level 104, Carbon Dioxide Level 29, Anion Gap 8, Blood Urea Nitrogen 13, Creatinine 0.8, Estimat Glomerular Filtration Rate > 60, Glucose Level 131H, Calcium Level 8.7, Uric Acid 3.9, Phosphorus Level 3.0, Magnesium Level 2.0, Total Bilirubin 0.5, Aspartate Amino Transf (AST/SGOT) 22, Alanine Aminotransferase (ALT/SGPT) 51, Alkaline Phosphatase 66, Total Protein 6.1L, Albumin 2.6L, Globulin 3.5, Albumin/ Globulin Ratio 0.7L Height (Feet): 5 Height (Inches): 9.00 Weight (Pounds): 303 General Appearance: lethargic EENT: normal ENT inspection Neck: supple Cardiovascular: normal rate Respiratory/Chest: decreased breath sounds Abdomen: normal bowel sounds, non tender, soft Extremities: non-tender Vladimir Saldana MD Jan 02, 2019 07:23
--- NOTE | 2019-01-02 08:02 | NUR ---
NURSE NOTES: Pt received report received from CLARENCE Dickey. Restless , will follow up with PRN. Bed alarm on for safety. On Bipap settings 13/6, PS 7, FiO2 40%. Tachypneic on the monitor. Bilateral soft wrist restraints with no skin impairment.Will continue to monitor.
[2019-01-02] MEDS: Pantoprazole Inj IVP SCH ×2 (08:42→20:24)
[2019-01-02] MEDS: OLANZapine 10mg tab ORAL SCH ×2 (08:42→18:02)
[2019-01-02] MEDS: Doxycycline Monohydrate 100mg ORAL SCH ×2 (08:42→20:24)
[2019-01-02] MEDS: Solu-MEDROL 40mg Inj IVP SCH (08:42)
[2019-01-02] MEDS: Haloperidol 5mg/ml Inj IM PRN ×2 (08:59→20:24)
[2019-01-02] MEDS: Docusate 100mg cap ORAL SCH ×2 (09:00→20:25)
[2019-01-02] MEDS: Lactulose 20gm/30ml UDC ORAL SCH ×3 (09:00→18:02)
--- NOTE | 2019-01-02 09:14 | Nephrology Progress Note ---
Assessment/Plan Problem List: (1) Salicylate overdose (2) Psychosis (3) Anemia (4) Obesity (5) Hypokalemia (6) Rhabdomyolysis Assessment: high CPK Assessment HypoKalemia Mild Anemia s/p Acidosis resolved Respiratory failure Salicylate overdose Psychosis Asthma Obesity Plan Plan: continue BIPAP and resp. support hold Norvasc PRN clonidin extubated 12/29 K , Mag , Phos supplement as needed no IV fluids taper steroids as possible IV Protonix Resp management per Dr hurt monitor renal parameters Urine studies Subjective ROS Limited/Unobtainable: No Constitutional: Reports: other - on bipap Objective Objective Last 24 Hour Vital Signs Date Time Temp Pulse Resp B/P (MAP) Pulse Ox O2 Delivery O2 Flow Rate FiO2 01/02/19 08:51 112 31 97 Full Face 30 01/02/19 07:32 30 01/02/19 07:08 100 Bi-Pap 40 01/02/19 07:06 84 25 98 Full Face 40 86 25 100 Bi-Pap 40 01/02/19 07:00 90 25 115/49 (71) 98 01/02/19 06:00 93 29 117/55 (75) 98 01/02/19 05:00 108 26 120/66 (84) 99 01/02/19 04:51 82 31 100 Facial 40 01/02/19 04:00 88 01/02/19 04:00 40 01/02/19 04:00 99.0 91 23 125/67 (86) 98 01/02/19 04:00 Bi-pap 01/02/19 03:00 124 37 120/86 (97) 98 01/02/19 02:33 87 36 99 Full Face 40 87 37 99 Bi-Pap 40 01/02/19 02:00 115 30 134/68 (90) 98 01/02/19 01:06 81 29 96 Facial 40 01/02/19 01:00 78 41 127/61 (83) 97 01/02/19 00:00 Bi-pap 01/02/19 00:00 40 01/02/19 00:00 72 01/02/19 00:00 99.3 84 31 119/100 (106) 100 01/01/19 23:49 72 25 100 Full Face 40 76 25 100 Bi-Pap 40 01/01/19 23:00 82 30 110/59 (76) 100 01/01/19 22:00 80 26 101/61 (74) 100 01/01/19 21:16 79 27 100 Facial 40 01/01/19 21:00 95 29 116/59 (78) 99 01/01/19 20:00 Bi-pap 01/01/19 20:00 89 01/01/19 20:00 40 01/01/19 20:00 99.0 112 30 130/60 (83) 100 01/01/19 19:39 95 21 100 Full Face 40 106 21 100 Bi-Pap 40 01/01/19 19:28 100 Bi-Pap 40 01/01/19 19:00 98 24 164/74 (104) 100 01/01/19 18:00 119 14 150/79 (102) 100 01/01/19 17:00 137 50 167/95 (119) 98 01/01/19 16:39 120 42 95 Facial 40 01/01/19 16:00 122 01/01/19 16:00 98.9 128 22 164/100 (121) 98 01/01/19 16:00 40 01/01/19 16:00 Bi-pap 01/01/19 15:00 132 38 137/91 (106) 97 01/01/19 14:59 143 35 100 Full Face 40 01/01/19 14:00 99 59 139/75 (96) 95 01/01/19 13:11 118 15 97 Full Face 40 01/01/19 13:00 118 13 135/77 (96) 96 01/01/19 12:00 141 01/01/19 12:00 99.0 132 41 150/103 (119) 97 01/01/19 12:00 40 01/01/19 12:00 Bi-pap 01/01/19 11:00 107 36 142/81 (101) 90 01/01/19 10:47 115 36 100 Full Face 40 01/01/19 10:00 134 36 138/71 (93) 100 01/01/19 09:18 117 42 100 Full Face 40 Intake and Output 01/01/19 01/02/19 19:00 07:00 Intake Total 480 ml 480 ml Output Total 410 ml 510 ml Balance 70 ml -30 ml IV Total 480 ml 480 ml Output Urine Total 410 ml 510 ml # Bowel Movements 3 1 Laboratory Tests 01/01/19 10:10: Arterial Blood pH 7.402, Arterial Blood Partial Pressure CO2 42.5, Arterial Blood Partial Pressure O2 85.2, Arterial Blood HCO3 25.9, Arterial Blood Oxygen Saturation 95.8, Arterial Blood Base Excess 0.9, Luis Test Positive 01/01/19 10:51: White Blood Count 15.2H, Red Blood Count 3.92L, Hemoglobin 12.1, Hematocrit 37.7 , Mean Corpuscular Volume 96, Mean Corpuscular Hemoglobin 30.8, Mean Corpuscular Hemoglobin Concent 32.0, Red Cell Distribution Width 13.3, Platelet Count 234, Mean Platelet Volume 5.0L, Neutrophils (%) (Auto) 68.8, Lymphocytes ( %) (Auto) 22.7, Monocytes (%) (Auto) 6.3, Eosinophils (%) (Auto) 0.8, Basophils (%) (Auto) 1.5, Sodium Level 142, Potassium Level 3.6, Chloride Level 105, Carbon Dioxide Level 30, Anion Gap 7, Blood Urea Nitrogen 14, Creatinine 0.9, Estimat Glomerular Filtration Rate > 60, Glucose Level 103, Calcium Level 8.6 01/02/19 04:45: White Blood Count 14.2H, Red Blood Count 3.89L, Hemoglobin 12.0, Hematocrit 37.4 , Mean Corpuscular Volume 96, Mean Corpuscular Hemoglobin 31.0, Mean Corpuscular Hemoglobin Concent 32.2, Red Cell Distribution Width 13.0, Platelet Count 232, Mean Platelet Volume 5.1L, Neutrophils (%) (Auto) 77.6H, Lymphocytes (%) (Auto) 16.1L, Monocytes (%) (Auto) 5.4, Eosinophils (%) (Auto) 0.3, Basophils (%) (Auto) 0.7 01/02/19 04:57: Sodium Level 141, Potassium Level 4.1, Chloride Level 104, Carbon Dioxide Level 29, Anion Gap 8, Blood Urea Nitrogen 13, Creatinine 0.8, Estimat Glomerular Filtration Rate > 60, Glucose Level 131H, Calcium Level 8.7, Uric Acid 3.9, Phosphorus Level 3.0, Magnesium Level 2.0, Total Bilirubin 0.5, Aspartate Amino Transf (AST/SGOT) 22, Alanine Aminotransferase (ALT/SGPT) 51, Alkaline Phosphatase 66, Total Protein 6.1L, Albumin 2.6L, Globulin 3.5, Albumin/ Globulin Ratio 0.7L Height (Feet): 5 Height (Inches): 9.00 Weight (Pounds): 303 General Appearance: no apparent distress EENT: other - on BIPAP Cardiovascular: tachycardia Respiratory/Chest: decreased breath sounds Abdomen: distended, other - obese Jerzy Boudreaux MD Jan 02, 2019 09:14
--- NOTE | 2019-01-02 10:05 | NUR ---
NURSE NOTES: Pt asleep, no acute distress, kept clean and dry, call light within easy reach.Will continue to monitor
--- NOTE | 2019-01-02 11:05 | NUR ---
NURSE NOTES: Pt off BIPAP and saturate at 94%, will monitor
--- NOTE | 2019-01-02 12:01 | NUR ---
NURSE NOTES: Patient awake, restless but able to follows commands and be redirected. Will continue close to monitoring.
--- NOTE | 2019-01-02 12:56 | NUR ---
NURSE NOTES: Pt placed back on BIPAP 14/10 Fi02 40% due to tachypnea at 52, will continue monitor
--- NOTE | 2019-01-02 13:01 | Infectious Diseases Prog Note ---
Assessment/Plan Assessment/Plan IMPRESSION: Sepsis or systemic inflammatory response syndrome, COPD, Hypercapnic respiratory failure, s Salicylate toxicity, Morbid obesity. Leukocytosis improving Positive Urine culture, colonization RECOMMENDATION: Observe off antibiotic Taper steroids. Subjective ROS Limited/Unobtainable: Yes Neurologic: Reports: other - more lert on restraint Allergies: Coded Allergies: No Known Allergies (Unverified , 11/07/13) Objective Vital Signs Last 24 Hour Vital Signs Date Time Temp Pulse Resp B/P (MAP) Pulse Ox O2 Delivery O2 Flow Rate FiO2 01/02/19 11:01 117 22 100 Venturi Mask 50 98 22 01/02/19 10:00 93 39 119/67 (84) 99 01/02/19 09:00 95 38 114/57 (76) 98 01/02/19 08:51 112 31 97 Full Face 30 01/02/19 08:00 99.8 91 23 123/67 (85) 98 01/02/19 08:00 Bi-pap 01/02/19 08:00 30 01/02/19 08:00 87 01/02/19 07:32 30 01/02/19 07:08 100 Bi-Pap 40 01/02/19 07:06 84 25 98 Full Face 40 86 25 100 Bi-Pap 40 01/02/19 07:00 90 25 115/49 (71) 98 01/02/19 06:00 93 29 117/55 (75) 98 01/02/19 05:00 108 26 120/66 (84) 99 01/02/19 04:51 82 31 100 Facial 40 01/02/19 04:00 88 01/02/19 04:00 40 01/02/19 04:00 99.0 91 23 125/67 (86) 98 01/02/19 04:00 Bi-pap 01/02/19 03:00 124 37 120/86 (97) 98 01/02/19 02:33 87 36 99 Full Face 40 87 37 99 Bi-Pap 40 01/02/19 02:00 115 30 134/68 (90) 98 01/02/19 01:06 81 29 96 Facial 40 01/02/19 01:00 78 41 127/61 (83) 97 01/02/19 00:00 Bi-pap 01/02/19 00:00 40 01/02/19 00:00 72 01/02/19 00:00 99.3 84 31 119/100 (106) 100 01/01/19 23:49 72 25 100 Full Face 40 76 25 100 Bi-Pap 40 01/01/19 23:00 82 30 110/59 (76) 100 01/01/19 22:00 80 26 101/61 (74) 100 01/01/19 21:16 79 27 100 Facial 40 01/01/19 21:00 95 29 116/59 (78) 99 01/01/19 20:00 Bi-pap 01/01/19 20:00 89 01/01/19 20:00 40 01/01/19 20:00 99.0 112 30 130/60 (83) 100 01/01/19 19:39 95 21 100 Full Face 40 106 21 100 Bi-Pap 40 01/01/19 19:28 100 Bi-Pap 40 01/01/19 19:00 98 24 164/74 (104) 100 01/01/19 18:00 119 14 150/79 (102) 100 01/01/19 17:00 137 50 167/95 (119) 98 01/01/19 16:39 120 42 95 Facial 40 01/01/19 16:00 122 01/01/19 16:00 98.9 128 22 164/100 (121) 98 01/01/19 16:00 40 01/01/19 16:00 Bi-pap 01/01/19 15:00 132 38 137/91 (106) 97 01/01/19 14:59 143 35 100 Full Face 40 01/01/19 14:00 99 59 139/75 (96) 95 01/01/19 13:11 118 15 97 Full Face 40 01/01/19 13:00 118 13 135/77 (96) 96 Height (Feet): 5 Height (Inches): 9.00 Weight (Pounds): 303 General Appearance: no acute distress HEENT: mucous membranes moist Respiratory/Chest: lungs clear, other - Oxygen by mask Cardiovascular: tachycardia Abdomen: soft, non tender Extremities: no edema Neurologic/Psychiatric: alert, responsive Laboratory Tests Test 01/02/19 04:45 01/02/19 04:57 White Blood Count 14.2 K/UL (4.8-10.8) H Red Blood Count 3.89 M/UL (4.20-5.40) L Hemoglobin 12.0 G/DL (12.0-16.0) Hematocrit 37.4 % (37.0-47.0) Mean Corpuscular Volume 96 FL (80-99) Mean Corpuscular Hemoglobin 31.0 PG (27.0-31.0) Mean Corpuscular Hemoglobin Concent 32.2 G/DL (32.0-36.0) Red Cell Distribution Width 13.0 % (11.6-14.8) Platelet Count 232 K/UL (150-450) Mean Platelet Volume 5.1 FL (6.5-10.1) L Neutrophils (%) (Auto) 77.6 % (45.0-75.0) H Lymphocytes (%) (Auto) 16.1 % (20.0-45.0) L Monocytes (%) (Auto) 5.4 % (1.0-10.0) Eosinophils (%) (Auto) 0.3 % (0.0-3.0) Basophils (%) (Auto) 0.7 % (0.0-2.0) Sodium Level 141 MMOL/L (136-145) Potassium Level 4.1 MMOL/L (3.5-5.1) Chloride Level 104 MMOL/L (98-107) Carbon Dioxide Level 29 MMOL/L (21-32) Anion Gap 8 mmol/L (5-15) Blood Urea Nitrogen 13 mg/dL (7-18) Creatinine 0.8 MG/DL (0.55-1.30) Estimat Glomerular Filtration Rate > 60 mL/min (>60) Glucose Level 131 MG/DL (74-106) H Uric Acid 3.9 MG/DL (2.6-7.2) Calcium Level 8.7 MG/DL (8.5-10.1) Phosphorus Level 3.0 MG/DL (2.5-4.9) Magnesium Level 2.0 MG/DL (1.8-2.4) Total Bilirubin 0.5 MG/DL (0.2-1.0) Aspartate Amino Transf (AST/SGOT) 22 U/L (15-37) Alanine Aminotransferase (ALT/SGPT) 51 U/L (12-78) Alkaline Phosphatase 66 U/L (46-116) Total Protein 6.1 G/DL (6.4-8.2) L Albumin 2.6 G/DL (3.4-5.0) L Globulin 3.5 g/dL Albumin/Globulin Ratio 0.7 (1.0-2.7) L Current Medications Medications (Trade) Dose Ordered Sig/Amaya Route PRN Reason Start Time Stop Time Status Last Admin Dose Admin Acetaminophen (Tylenol) 650 mg Q4H PRN ORAL FOR TEMP >100.5 12/30/18 12:30 01/22/19 07:29 Acetylcysteine (Mucomyst) 200 mg Q4HRT N 12/24/18 23:00 01/23/19 12:59 01/02/19 11:01 Albuterol/ Ipratropium (Albuterol/ Ipratropium) 3 ml Q4HRT N 01/01/19 07:00 01/06/19 06:59 01/02/19 11:01 Clonidine HCl (Catapres Tab) 0.1 mg Q4H PRN ORAL bp over 165 syst 12/30/18 12:30 01/29/19 12:29 Dextrose (Dextrose 50%) 25 ml Q30M PRN IV Hypoglycemia 12/21/18 17:00 01/20/19 16:59 Dextrose (Dextrose 50%) 50 ml Q30M PRN IV Hypoglycemia 12/21/18 17:00 01/20/19 16:59 Dextrose/Sodium Chloride 1,000 ml @ 40 mls/hr Q24H IV 12/29/18 15:45 01/28/19 15:44 01/01/19 16:52 Diphenhydramine HCl (Benadryl) 50 mg Q6H PRN IM Restlessness 01/01/19 18:45 01/31/19 18:44 Docusate Sodium (Colace) 100 mg Q12HR ORAL 12/30/18 21:00 01/27/19 20:59 12/31/18 20:58 Doxycycline Monohydrate (Doxycycline Monohydrate) 100 mg EVERY 12 HOURS ORAL 12/30/18 21:00 01/03/19 13:29 01/02/19 08:42 Haloperidol Lactate (Haldol) 5 mg Q6H PRN IM Agitation 12/24/18 00:30 01/23/19 00:29 01/02/19 08:59 Insulin Aspart (NovoLOG) EVERY 6 HOURS SUBQ 12/21/18 18:00 01/20/19 17:59 12/29/18 17:56 Lactulose (Cephulac) 20 gm THREE TIMES A DAY ORAL 12/31/18 18:00 01/30/19 17:59 Methylprednisolone Sodium Succinate (Solu-MEDROL) 30 mg DAILY IVP 12/31/18 09:00 01/28/19 08:59 01/02/19 08:42 Olanzapine (ZyPREXA) 10 mg BID ORAL 01/01/19 22:00 01/31/19 18:44 01/02/19 08:42 Pantoprazole (Protonix) 40 mg EVERY 12 HOURS IVP 12/22/18 11:00 01/21/19 10:59 01/02/19 08:42 Polyethylene Glycol (Miralax) 17 gm BEDTIME ORAL 12/31/18 21:00 01/30/19 20:59 12/31/18 20:59 Polyethylene Glycol (Miralax) 17 gm DAILYPRN PRN ORAL Constipation 12/30/18 12:30 01/27/19 10:29 Nikos Martinez MD Jan 02, 2019 13:01
--- NOTE | 2019-01-02 14:02 | NUR ---
NURSE NOTES: Pt still noted with on and on episode agitation, redirected and able to follow command, will continue to monitor
[2019-01-02] MEDS: DiphenhydrAMINE 50mg/ml Inj IM PRN ×2 (14:28→21:23)
[2019-01-02] MEDS ORDERED: D5 1/2NS 1000ml IV ONE (15:09)
[2019-01-02] MEDS ORDERED: NS 275ml ONE (15:09)
[2019-01-02] MEDS: D5 1/2NS 1,000 ML IV SCH ×2 (15:45→18:53)
--- NOTE | 2019-01-02 16:10 | NUR ---
NURSE NOTES: Patient request to speak to son, spoke with Sukhdeep and as stated he will visit
--- NOTE | 2019-01-02 17:39 | Pulmonolgy Critical Care Note ---
Critical Care - Asmt/Plan Assessment/Plan: Pulmonary CCM Progress Note HPI Patient is a 58-year-old woman with apparent history of Obstructive Airways Disease, Schizophrenia, Obesity, presented with shortness of breath, increased anxiety. S/p extubation. Remains on PRN BiPAP Noted to have elevated ASA level on admission FIO2 reduced , AB per ID, Diuresing well Remains agitated at times, Psychiatry following, more interactive today, getting less Ativan Physical Exam Vital Signs Noted General Appearance: normal inspection, obese, awake Head: NCAT ENT: Moist mm, JVP not visible Neck: normal inspection, full range of motion, supple, no bony tend Respiratory: normal inspection, no respiratory distress, no retraction, no wheezing, reduced basal BS Cardiovascular: regular rate, rhythm, Normal HS1, HS2 Gastrointestinal: normal inspection, normal bowel sounds, non tender, soft, no guarding, no hernia Genitourinary: no CVA tenderness Musculoskeletal: normal inspection, minimal edema Neurologic: no focal signs noted, follows commands Impression: Respiratory failure - sp extubation, on PRN BiPAP Previously elevated Salicylate level Pneumonia Possible Congestive Heart Failure Salicylate overdose Schizophrenia/Psychosis Asthma Obesity Plan: Adjust FIO2, BiPAP PRN - wean as tolerated ABG CXR ID following IV Solumedrol reduced Sedation per Psychiatry - minimize Benzodiazepines if possible Aspiration precautions HHN ISS AD [employer] med PRN Sedation PPX Keep negative balance - received Lasix again today ST eval Labs Noted CXR: ETT appropriate, basal infiltrates, vascular congestion Critical Care - Objective Last 24 Hour Vital Signs Date Time Temp Pulse Resp B/P (MAP) Pulse Ox O2 Delivery O2 Flow Rate FiO2 01/02/19 17:11 126 34 96 Full Face 30 01/02/19 17:00 96 30 116/51 (72) 95 01/02/19 16:00 Bi-pap 01/02/19 16:00 112 01/02/19 16:00 99.3 96 28 116/62 (80) 97 01/02/19 16:00 40 01/02/19 15:00 106 30 112/61 (78) 95 01/02/19 14:58 99.6 01/02/19 14:58 122 30 90 Full Face 30 01/02/19 14:00 109 26 115/57 (76) 91 01/02/19 13:01 117 25 96 Full Face 30 01/02/19 13:00 101 23 174/73 (106) 97 01/02/19 12:56 12.0 50 01/02/19 12:00 97 01/02/19 12:00 99.8 91 23 123/67 (85) 98 01/02/19 12:00 Bi-pap 01/02/19 11:05 12.0 50 01/02/19 11:01 117 22 100 Venturi Mask 50 98 22 01/02/19 11:00 109 38 122/59 (80) 100 01/02/19 10:00 93 39 119/67 (84) 99 01/02/19 09:00 95 38 114/57 (76) 98 01/02/19 08:51 112 31 97 Full Face 30 01/02/19 08:00 99.8 91 23 123/67 (85) 98 01/02/19 08:00 Bi-pap 01/02/19 08:00 30 01/02/19 08:00 87 01/02/19 07:32 30 01/02/19 07:08 100 Bi-Pap 40 01/02/19 07:06 84 25 98 Full Face 40 86 25 100 Bi-Pap 40 01/02/19 07:00 90 25 115/49 (71) 98 01/02/19 06:00 93 29 117/55 (75) 98 01/02/19 05:00 108 26 120/66 (84) 99 01/02/19 04:51 82 31 100 Facial 40 01/02/19 04:00 88 01/02/19 04:00 40 01/02/19 04:00 99.0 91 23 125/67 (86) 98 01/02/19 04:00 Bi-pap 01/02/19 03:00 124 37 120/86 (97) 98 01/02/19 02:33 87 36 99 Full Face 40 87 37 99 Bi-Pap 40 01/02/19 02:00 115 30 134/68 (90) 98 01/02/19 01:06 81 29 96 Facial 40 01/02/19 01:00 78 41 127/61 (83) 97 01/02/19 00:00 Bi-pap 01/02/19 00:00 40 01/02/19 00:00 72 01/02/19 00:00 99.3 84 31 119/100 (106) 100 01/01/19 23:49 72 25 100 Full Face 40 76 25 100 Bi-Pap 40 01/01/19 23:00 82 30 110/59 (76) 100 01/01/19 22:00 80 26 101/61 (74) 100 01/01/19 21:16 79 27 100 Facial 40 01/01/19 21:00 95 29 116/59 (78) 99 01/01/19 20:00 Bi-pap 01/01/19 20:00 89 01/01/19 20:00 40 01/01/19 20:00 99.0 112 30 130/60 (83) 100 01/01/19 19:39 95 21 100 Full Face 40 106 21 100 Bi-Pap 40 01/01/19 19:28 100 Bi-Pap 40 01/01/19 19:00 98 24 164/74 (104) 100 01/01/19 18:00 119 14 150/79 (102) 100 Accucheck: 120 Critical Care - Subjective ROS Limited/Unobtainable: No FI02: 30 Vent Support Breath Rate: 24 Vent Support Mode: BiLevel Vent Tidal Volume: 550 Sputum Amount: None PEEP: 5.0 PIP: 14 Tube Feeding Amount: 40 I&O: Intake and Output 01/01/19 01/02/19 18:59 06:59 Intake Total 400 ml 520 ml Output Total 460 ml 480 ml Balance -60 ml 40 ml IV Total 400 ml 520 ml Output Urine Total 460 ml 480 ml # Bowel Movements 3 1 ET-Tube: 7.0 ET Position: 22 Kevan Monsalve MD Jan 02, 2019 17:39
--- NOTE | 2019-01-02 18:10 | NUR ---
NURSE NOTES: Pt awake, no acute distress,HOB elevated to prevent aspiration.Will continue to monitor
--- NOTE | 2019-01-02 19:01 | NUR ---
NURSE NOTES: Report given to CLARENCE Dickey.Son Sukhdeep arrived and update given.
--- NOTE | 2019-01-02 19:11 | NUR ---
NURSE NOTES: Received report from CLARENCE Caraballo. Patient awake and alert x3. On bipap 13/6 with FiO2 30%. O2 Sat 94% on the monitor. Still on NPO. All IVs intact and clean. Mon intact and draining with yellow color urine. Son is at the bedside. Call light placed in easy reach. Will continue plan of care.
--- NOTE | 2019-01-02 20:24 | NUR ---
NURSE NOTES: Patient noted with agitation and right upper arm iv was removed. Haldol was given as ordered.
[2019-01-02] MEDS: Miralax 17gm pkt ORAL SCH (20:25)
--- NOTE | 2019-01-02 20:28 | General Progress Note ---
Assessment/Plan Problem List: (1) Opioid dependence ICD Codes: F11.20 - Opioid dependence, uncomplicated SNOMED: 13112382 (2) Altered level of consciousness ICD Codes: R40.4 - Transient alteration of awareness SNOMED: 6862712 (3) Back pain ICD Codes: M54.9 - Dorsalgia, unspecified SNOMED: 655893782 (4) Opiate dependence ICD Codes: F11.20 - Opioid dependence, uncomplicated SNOMED: 23537670 (5) Depression ICD Codes: F32.9 - Major depressive disorder, single episode, unspecified SNOMED: 99989545 (6) Peripheral edema ICD Codes: R60.9 - Edema, unspecified SNOMED: 574451568 (7) Leg pain ICD Codes: M79.606 - Pain in leg, unspecified SNOMED: 19703946 (8) Headache ICD Codes: R51 - Headache SNOMED: 83249346 (9) COPD exacerbation ICD Codes: J44.1 - Chronic obstructive pulmonary disease with (acute) exacerbation SNOMED: 584002859 (10) Psychosis ICD Codes: F29 - Unsp psychosis not due to a substance or known physiol cond SNOMED: 75409734 (11) Respiratory failure ICD Codes: J96.90 - Respiratory failure, unspecified, unspecified whether with hypoxia or hypercapnia SNOMED: 007055757 (12) Salicylate overdose ICD Codes: T39.091A - Poisoning by salicylates, accidental (unintentional), initial encounter SNOMED: 287450510, 2551704 (13) Asthma ICD Codes: J45.909 - Unspecified asthma, uncomplicated SNOMED: 406422617, 9624459 (14) Anemia ICD Codes: D64.9 - Anemia, unspecified SNOMED: 871049637 Status: progressing, unchanged Assessment/Plan: salicylate overdose lethargic afebrile on continious bipap poor respiratory reserve dependent on bipap psych patient Subjective ROS Limited/Unobtainable: Yes Allergies: Coded Allergies: No Known Allergies (Unverified , 11/07/13) Objective Last 24 Hour Vital Signs Date Time Temp Pulse Resp B/P (MAP) Pulse Ox O2 Delivery O2 Flow Rate FiO2 01/02/19 19:40 95 21 96 Full Face 30 95 21 96 Bi-Pap 30 01/02/19 19:39 100 Bi-Pap 30 01/02/19 19:00 100 30 128/78 (95) 100 01/02/19 18:00 101 30 119/62 (81) 100 01/02/19 17:11 126 34 96 Full Face 30 01/02/19 17:00 96 30 116/51 (72) 95 01/02/19 16:00 Bi-pap 01/02/19 16:00 112 01/02/19 16:00 99.3 96 28 116/62 (80) 97 01/02/19 16:00 40 01/02/19 15:00 106 30 112/61 (78) 95 01/02/19 14:58 99.6 01/02/19 14:58 122 30 90 Full Face 30 01/02/19 14:00 109 26 115/57 (76) 91 01/02/19 13:01 117 25 96 Full Face 30 01/02/19 13:00 101 23 174/73 (106) 97 01/02/19 12:56 12.0 50 01/02/19 12:00 97 01/02/19 12:00 99.8 91 23 123/67 (85) 98 01/02/19 12:00 Bi-pap 01/02/19 11:05 12.0 50 01/02/19 11:01 117 22 100 Venturi Mask 50 98 22 01/02/19 11:00 109 38 122/59 (80) 100 01/02/19 10:00 93 39 119/67 (84) 99 01/02/19 09:00 95 38 114/57 (76) 98 01/02/19 08:51 112 31 97 Full Face 30 01/02/19 08:00 99.8 91 23 123/67 (85) 98 01/02/19 08:00 Bi-pap 01/02/19 08:00 30 01/02/19 08:00 87 01/02/19 07:32 30 01/02/19 07:08 100 Bi-Pap 40 01/02/19 07:06 84 25 98 Full Face 40 86 25 100 Bi-Pap 40 01/02/19 07:00 90 25 115/49 (71) 98 01/02/19 06:00 93 29 117/55 (75) 98 01/02/19 05:00 108 26 120/66 (84) 99 01/02/19 04:51 82 31 100 Facial 40 01/02/19 04:00 88 01/02/19 04:00 40 01/02/19 04:00 99.0 91 23 125/67 (86) 98 01/02/19 04:00 Bi-pap 01/02/19 03:00 124 37 120/86 (97) 98 01/02/19 02:33 87 36 99 Full Face 40 87 37 99 Bi-Pap 40 01/02/19 02:00 115 30 134/68 (90) 98 01/02/19 01:06 81 29 96 Facial 40 01/02/19 01:00 78 41 127/61 (83) 97 01/02/19 00:00 Bi-pap 01/02/19 00:00 40 01/02/19 00:00 72 01/02/19 00:00 99.3 84 31 119/100 (106) 100 01/01/19 23:49 72 25 100 Full Face 40 76 25 100 Bi-Pap 40 01/01/19 23:00 82 30 110/59 (76) 100 01/01/19 22:00 80 26 101/61 (74) 100 01/01/19 21:16 79 27 100 Facial 40 01/01/19 21:00 95 29 116/59 (78) 99 Intake and Output 01/01/19 01/02/19 19:00 07:00 Intake Total 480 ml 480 ml Output Total 410 ml 510 ml Balance 70 ml -30 ml IV Total 480 ml 480 ml Output Urine Total 410 ml 510 ml # Bowel Movements 3 1 Laboratory Tests 01/02/19 04:45: White Blood Count 14.2H, Red Blood Count 3.89L, Hemoglobin 12.0, Hematocrit 37.4 , Mean Corpuscular Volume 96, Mean Corpuscular Hemoglobin 31.0, Mean Corpuscular Hemoglobin Concent 32.2, Red Cell Distribution Width 13.0, Platelet Count 232, Mean Platelet Volume 5.1L, Neutrophils (%) (Auto) 77.6H, Lymphocytes (%) (Auto) 16.1L, Monocytes (%) (Auto) 5.4, Eosinophils (%) (Auto) 0.3, Basophils (%) (Auto) 0.7 01/02/19 04:57: Sodium Level 141, Potassium Level 4.1, Chloride Level 104, Carbon Dioxide Level 29, Anion Gap 8, Blood Urea Nitrogen 13, Creatinine 0.8, Estimat Glomerular Filtration Rate > 60, Glucose Level 131H, Uric Acid 3.9, Calcium Level 8.7, Phosphorus Level 3.0, Magnesium Level 2.0, Total Bilirubin 0.5, Aspartate Amino Transf (AST/SGOT) 22, Alanine Aminotransferase (ALT/SGPT) 51, Alkaline Phosphatase 66, Total Protein 6.1L, Albumin 2.6L, Globulin 3.5, Albumin/ Globulin Ratio 0.7L Height (Feet): 5 Height (Inches): 9.00 Weight (Pounds): 303 General Appearance: lethargic Cardiovascular: regular rhythm Abdomen: soft Jasmine Joe MD Jan 02, 2019 20:28
--- NOTE | 2019-01-02 21:23 | NUR ---
NURSE NOTES: Patient still noted with restlessness. benadryl was given as ordered.
--- NOTE | 2019-01-02 21:29 | Cardiology Progress Note ---
Assessment/Plan Assessment/Plan 1. Sinus tachycardia, resolved, most likely due to hypoxemia, there is no need for AV carissa agents. 2. Acute respiratory failure due to right lung whiteout, on full face mask. 3. History of chronic obstructive pulmonary disease. 4. History of salicylate overdose. 5. Morbid obesity. 6. Hyperthyroidism 7. Dyslipidemia Subjective Subjective Sinus rhythm at rate of 95. Full face mask at FiO2 of 30%. Objective Last 24 Hour Vital Signs Date Time Temp Pulse Resp B/P (MAP) Pulse Ox O2 Delivery O2 Flow Rate FiO2 01/02/19 19:40 95 21 96 Full Face 30 95 21 96 Bi-Pap 30 01/02/19 19:39 100 Bi-Pap 30 01/02/19 19:00 100 30 128/78 (95) 100 01/02/19 18:00 101 30 119/62 (81) 100 01/02/19 17:11 126 34 96 Full Face 30 01/02/19 17:00 96 30 116/51 (72) 95 01/02/19 16:00 Bi-pap 01/02/19 16:00 112 01/02/19 16:00 99.3 96 28 116/62 (80) 97 01/02/19 16:00 40 01/02/19 15:00 106 30 112/61 (78) 95 01/02/19 14:58 99.6 01/02/19 14:58 122 30 90 Full Face 30 01/02/19 14:00 109 26 115/57 (76) 91 01/02/19 13:01 117 25 96 Full Face 30 01/02/19 13:00 101 23 174/73 (106) 97 01/02/19 12:56 12.0 50 01/02/19 12:00 97 01/02/19 12:00 99.8 91 23 123/67 (85) 98 01/02/19 12:00 Bi-pap 01/02/19 11:05 12.0 50 01/02/19 11:01 117 22 100 Venturi Mask 50 98 22 01/02/19 11:00 109 38 122/59 (80) 100 01/02/19 10:00 93 39 119/67 (84) 99 01/02/19 09:00 95 38 114/57 (76) 98 01/02/19 08:51 112 31 97 Full Face 30 01/02/19 08:00 99.8 91 23 123/67 (85) 98 01/02/19 08:00 Bi-pap 01/02/19 08:00 30 01/02/19 08:00 87 01/02/19 07:32 30 01/02/19 07:08 100 Bi-Pap 40 01/02/19 07:06 84 25 98 Full Face 40 86 25 100 Bi-Pap 40 01/02/19 07:00 90 25 115/49 (71) 98 01/02/19 06:00 93 29 117/55 (75) 98 01/02/19 05:00 108 26 120/66 (84) 99 01/02/19 04:51 82 31 100 Facial 40 01/02/19 04:00 88 01/02/19 04:00 40 01/02/19 04:00 99.0 91 23 125/67 (86) 98 01/02/19 04:00 Bi-pap 01/02/19 03:00 124 37 120/86 (97) 98 01/02/19 02:33 87 36 99 Full Face 40 87 37 99 Bi-Pap 40 01/02/19 02:00 115 30 134/68 (90) 98 01/02/19 01:06 81 29 96 Facial 40 01/02/19 01:00 78 41 127/61 (83) 97 01/02/19 00:00 Bi-pap 01/02/19 00:00 40 01/02/19 00:00 72 01/02/19 00:00 99.3 84 31 119/100 (106) 100 01/01/19 23:49 72 25 100 Full Face 40 76 25 100 Bi-Pap 40 01/01/19 23:00 82 30 110/59 (76) 100 01/01/19 22:00 80 26 101/61 (74) 100 Intake and Output 01/01/19 01/02/19 19:00 07:00 Intake Total 480 ml 480 ml Output Total 410 ml 510 ml Balance 70 ml -30 ml IV Total 480 ml 480 ml Output Urine Total 410 ml 510 ml # Bowel Movements 3 1 Laboratory Tests Test 01/02/19 04:45 01/02/19 04:57 White Blood Count 14.2 K/UL (4.8-10.8) H Red Blood Count 3.89 M/UL (4.20-5.40) L Hemoglobin 12.0 G/DL (12.0-16.0) Hematocrit 37.4 % (37.0-47.0) Mean Corpuscular Volume 96 FL (80-99) Mean Corpuscular Hemoglobin 31.0 PG (27.0-31.0) Mean Corpuscular Hemoglobin Concent 32.2 G/DL (32.0-36.0) Red Cell Distribution Width 13.0 % (11.6-14.8) Platelet Count 232 K/UL (150-450) Mean Platelet Volume 5.1 FL (6.5-10.1) L Neutrophils (%) (Auto) 77.6 % (45.0-75.0) H Lymphocytes (%) (Auto) 16.1 % (20.0-45.0) L Monocytes (%) (Auto) 5.4 % (1.0-10.0) Eosinophils (%) (Auto) 0.3 % (0.0-3.0) Basophils (%) (Auto) 0.7 % (0.0-2.0) Sodium Level 141 MMOL/L (136-145) Potassium Level 4.1 MMOL/L (3.5-5.1) Chloride Level 104 MMOL/L (98-107) Carbon Dioxide Level 29 MMOL/L (21-32) Anion Gap 8 mmol/L (5-15) Blood Urea Nitrogen 13 mg/dL (7-18) Creatinine 0.8 MG/DL (0.55-1.30) Estimat Glomerular Filtration Rate > 60 mL/min (>60) Glucose Level 131 MG/DL (74-106) H Uric Acid 3.9 MG/DL (2.6-7.2) Calcium Level 8.7 MG/DL (8.5-10.1) Phosphorus Level 3.0 MG/DL (2.5-4.9) Magnesium Level 2.0 MG/DL (1.8-2.4) Total Bilirubin 0.5 MG/DL (0.2-1.0) Aspartate Amino Transf (AST/SGOT) 22 U/L (15-37) Alanine Aminotransferase (ALT/SGPT) 51 U/L (12-78) Alkaline Phosphatase 66 U/L (46-116) Total Protein 6.1 G/DL (6.4-8.2) L Albumin 2.6 G/DL (3.4-5.0) L Globulin 3.5 g/dL Albumin/Globulin Ratio 0.7 (1.0-2.7) L Objective HEENT: Atraumatic and normocephalic. Anicteric. Pupils are equal, round, and reactive to light and accommodation. On full face mask. NECK: JVP cannot be assessed. No carotid bruit. CARDIOVASCULAR: Normal S1, S2. Regular rate and rhythm. No murmurs, gallops, or rubs. PMI is at fourth intercostal space in the midclavicular line. LUNGS: Diminished breath sounds in both lungs. ABDOMEN: Soft, obese. No hepatosplenomegaly. Positive bowel sounds. EXTREMITIES: No evidence of edema, clubbing, or cyanosis. Velasquez Staton MD Jan 02, 2019 21:29
--- NOTE | 2019-01-02 23:00 | NUR ---
NURSE NOTES: Left wrist 22G IV is inserted.
[2019-01-03] VITALS (18 sets, daily range): BP systolic 65–155; BP diastolic 50–132
--- NOTE | 2019-01-03 00:20 | NUR ---
NURSE NOTES: Repositioned patient. Oral care provided.
--- NOTE | 2019-01-03 02:20 | NUR ---
NURSE NOTES: Repositioned patient. No change in condition.
[2019-01-03] MEDS: Albuterol/Ipratropium 3ml neb HHN SCH ×6 (03:27→23:28)
[2019-01-03] MEDS: Acetylcysteine 20% Soln 4ml HHN SCH ×6 (03:27→23:28)
[2019-01-03] MEDS: Haloperidol 5mg/ml Inj IM PRN ×2 (03:31→10:34)
[2019-01-03] MEDS: DiphenhydrAMINE 50mg/ml Inj IM PRN ×2 (04:05→11:01)
--- NOTE | 2019-01-03 04:21 | NUR ---
NURSE NOTES: Bed bath given.
[2019-01-03] MEDS: NovoLOG Insulin Flexpen SUBQ SCH ×4 (05:28→18:00)
--- NOTE | 2019-01-03 06:02 | NUR ---
NURSE NOTES: Blood sugar in normal range. Will continue plan of care.
--- NOTE | 2019-01-03 07:20 | NUR ---
HAND-OFF: Report given to CLARENCE Smith. Endorsed plan of care.
--- NOTE | 2019-01-03 07:37 | NUR ---
NURSE NOTES: Report received from Noble LIMA. Pt awake, alert and oriented x 2-3. Pt ST 120s on cardiac catheterization technologist. Pt on 2L O2 saturating 94%. Pt off bipap since 4 am. Pt kept NPO except meds. Mon draining clear, mynor urine to gravity. LW 22 with D 5 1/2 NS @ 40 cc/hr. Bilateral soft wrist restraints noted and intact. Pt attempting to climb out of bed and pull out lines. Safety measures in place with bed locked and in lowest position, side rails x3 up and bed alarm on. Will continue to monitor and continue plan of care.
[2019-01-03] MEDS: Docusate 100mg cap ORAL SCH ×2 (08:04→20:30)
[2019-01-03] MEDS: Lactulose 20gm/30ml UDC ORAL SCH ×3 (08:04→19:01)
[2019-01-03] MEDS: Doxycycline Monohydrate 100mg ORAL SCH (08:12)
[2019-01-03] MEDS: OLANZapine 10mg tab ORAL SCH ×2 (08:13→19:01)
[2019-01-03] MEDS: Pantoprazole Inj IVP SCH ×2 (08:13→20:30)
[2019-01-03] MEDS: Solu-MEDROL 40mg Inj IVP SCH (08:13)
[2019-01-03 09:03] LABS: ANION GAP 10 mmol/L (5-15); BASOPHILS % (AUTO) 1.1 % (0.0-2.0); BLOOD UREA NITROGEN 10 mg/dL (7-18); CALCIUM 8.9 MG/DL (8.5-10.1); CARBON DIOXIDE 29 MMOL/L (21-32); CHLORIDE 106 MMOL/L (98-107); EOSINOPHILS % (AUTO) 0.3 % (0.0-3.0); HEMATOCRIT 36.7 % (37.0-47.0); HEMOGLOBIN 12.9 G/DL (12.0-16.0); LYMPHOCYTES % (AUTO) 22.1 % (20.0-45.0); MEAN CORPUSCULAR VOLUME 91 FL (80-99); MONOCYTES % (AUTO) 3.6 % (1.0-10.0); PLATELET COUNT 232 K/UL (150-450); POTASSIUM 2.9 MMOL/L (3.5-5.1); RED BLOOD COUNT 4.05 M/UL (4.20-5.40); RED CELL DISTRIBUTION WIDTH 12.7 % (11.6-14.8); SODIUM 145 MMOL/L (136-145); WHITE BLOOD COUNT 15.3 K/UL (4.8-10.8)
--- NOTE | 2019-01-03 09:56 | Nephrology Progress Note ---
Assessment/Plan Problem List: (1) Salicylate overdose (2) Psychosis (3) Anemia (4) Obesity (5) Hypokalemia (6) Rhabdomyolysis Assessment: high CPK Assessment HypoKalemia Mild Anemia s/p Acidosis resolved Respiratory failure Salicylate overdose Psychosis Asthma Obesity Plan Plan: continue resp. support hold Norvasc PRN clonidin extubated 12/29 K , Mag , Phos supplement as needed no IV fluids taper steroids as possible IV Protonix Resp management per Dr hurt monitor renal parameters Urine studies Subjective ROS Limited/Unobtainable: No Constitutional: Reports: malaise Objective Objective Last 24 Hour Vital Signs Date Time Temp Pulse Resp B/P (MAP) Pulse Ox O2 Delivery O2 Flow Rate FiO2 01/03/19 09:00 122 34 132/60 (84) 99 01/03/19 08:00 45 01/03/19 08:00 Bi-pap 01/03/19 08:00 98.0 120 27 139/59 (85) 98 01/03/19 08:00 122 01/03/19 07:58 100 Nasal Cannula 2.0 28 01/03/19 07:36 110 29 93 2.0 28 01/03/19 07:00 110 30 151/82 (105) 94 01/03/19 06:00 115 33 134/96 (109) 99 01/03/19 05:03 111 33 100 Venturi Mask 10.0 45 01/03/19 05:00 45 01/03/19 05:00 103 25 124/80 (95) 99 01/03/19 04:00 55 01/03/19 04:00 99.6 107 23 155/79 (104) 99 01/03/19 04:00 106 01/03/19 04:00 Bi-pap 01/03/19 03:28 113 30 98 Full Face 30 115 26 99 Bi-Pap 30 01/03/19 03:00 109 29 141/82 (101) 97 01/03/19 02:00 107 28 147/82 (103) 98 01/03/19 01:23 91 29 98 Full Face 30 Bi-Pap 01/03/19 01:00 135 39 135/86 (102) 97 01/03/19 00:00 99.0 98 30 152/87 (108) 97 01/03/19 00:00 Bi-pap 01/03/19 00:00 30 01/03/19 00:00 97 01/02/19 23:22 102 36 100 Full Face 30 104 29 100 Bi-Pap 30 01/02/19 23:00 116 31 147/76 (99) 01/02/19 22:00 117 35 143/70 (94) 74 01/02/19 21:30 103 30 100 Full Face 30 Bi-Pap 01/02/19 21:00 92 24 135/66 (89) 97 01/02/19 20:00 30 01/02/19 20:00 99.2 103 23 95/72 (80) 97 01/02/19 20:00 Bi-pap 01/02/19 20:00 104 01/02/19 19:40 95 21 96 Full Face 30 95 21 96 Bi-Pap 30 01/02/19 19:39 100 Bi-Pap 30 01/02/19 19:00 100 30 128/78 (95) 100 01/02/19 18:00 101 30 119/62 (81) 100 01/02/19 17:11 126 34 96 Full Face 30 01/02/19 17:00 96 30 116/51 (72) 95 01/02/19 16:00 Bi-pap 01/02/19 16:00 112 01/02/19 16:00 99.3 96 28 116/62 (80) 97 01/02/19 16:00 40 01/02/19 15:00 106 30 112/61 (78) 95 01/02/19 14:58 99.6 01/02/19 14:58 122 30 90 Full Face 30 01/02/19 14:00 109 26 115/57 (76) 91 01/02/19 13:01 117 25 96 Full Face 30 01/02/19 13:00 101 23 174/73 (106) 97 01/02/19 12:56 12.0 50 01/02/19 12:00 97 01/02/19 12:00 99.8 91 23 123/67 (85) 98 01/02/19 12:00 Bi-pap 01/02/19 11:05 12.0 50 01/02/19 11:01 117 22 100 Venturi Mask 50 98 22 01/02/19 11:00 109 38 122/59 (80) 100 01/02/19 10:00 93 39 119/67 (84) 99 Intake and Output 01/02/19 01/03/19 19:00 07:00 Intake Total 405 ml 480 ml Output Total 1465 ml 400 ml Balance -1060 ml 80 ml IV Total 405 ml 480 ml Output Urine Total 1465 ml 400 ml # Bowel Movements 2 Laboratory Tests 01/03/19 08:25: White Blood Count 15.3H, Red Blood Count 4.05L, Hemoglobin 12.9, Hematocrit 36.7L, Mean Corpuscular Volume 91, Mean Corpuscular Hemoglobin 31.8H, Mean Corpuscular Hemoglobin Concent 35.0, Red Cell Distribution Width 12.7, Platelet Count 232, Mean Platelet Volume 4.9L, Neutrophils (%) (Auto) 73.0, Lymphocytes ( %) (Auto) 22.1, Monocytes (%) (Auto) 3.6, Eosinophils (%) (Auto) 0.3, Basophils (%) (Auto) 1.1, Sodium Level 145, Potassium Level 2.9L, Chloride Level 106, Carbon Dioxide Level 29, Anion Gap 10, Blood Urea Nitrogen 10, Creatinine 1.0, Estimat Glomerular Filtration Rate > 60, Glucose Level 106, Calcium Level 8.9 01/03/19 08:30: Arterial Blood pH 7.409, Arterial Blood Partial Pressure CO2 38.9, Arterial Blood Partial Pressure O2 74.2L, Arterial Blood HCO3 24.0, Arterial Blood Oxygen Saturation 94.4L, Arterial Blood Base Excess -0.4, Luis Test Positive Height (Feet): 5 Height (Inches): 9.00 Weight (Pounds): 297 General Appearance: no apparent distress EENT: other - on cannula Respiratory/Chest: decreased breath sounds Abdomen: distended, other - obese Jerzy Boudreaux MD Jan 03, 2019 09:56
--- NOTE | 2019-01-03 10:43 | NUR ---
NURSE NOTES: Pt agitated. Pt attempting to get oob. Pt given haldol IM. Will continue to monitor.
--- NOTE | 2019-01-03 10:47 | Infectious Diseases Prog Note ---
Assessment/Plan Assessment/Plan IMPRESSION: Sepsis or systemic inflammatory response syndrome, COPD, Hypercapnic respiratory failure, s Salicylate toxicity, Morbid obesity. Leukocytosis improving Positive Urine culture, colonization RECOMMENDATION: Observe off antibiotic Taper steroids. Subjective ROS Limited/Unobtainable: Yes Neurologic: Reports: confusion, other - on restraint Allergies: Coded Allergies: No Known Allergies (Unverified , 11/07/13) Objective Vital Signs Last 24 Hour Vital Signs Date Time Temp Pulse Resp B/P (MAP) Pulse Ox O2 Delivery O2 Flow Rate FiO2 01/03/19 10:00 110 32 143/63 (89) 96 01/03/19 09:00 122 34 132/60 (84) 99 01/03/19 08:00 45 01/03/19 08:00 Bi-pap 01/03/19 08:00 98.0 120 27 139/59 (85) 98 01/03/19 08:00 122 01/03/19 07:58 100 Nasal Cannula 2.0 28 01/03/19 07:36 110 29 93 2.0 28 01/03/19 07:00 110 30 151/82 (105) 94 01/03/19 06:00 115 33 134/96 (109) 99 01/03/19 05:03 111 33 100 Venturi Mask 10.0 45 01/03/19 05:00 45 01/03/19 05:00 103 25 124/80 (95) 99 01/03/19 04:00 55 01/03/19 04:00 99.6 107 23 155/79 (104) 99 01/03/19 04:00 106 01/03/19 04:00 Bi-pap 01/03/19 03:28 113 30 98 Full Face 30 115 26 99 Bi-Pap 30 01/03/19 03:00 109 29 141/82 (101) 97 01/03/19 02:00 107 28 147/82 (103) 98 01/03/19 01:23 91 29 98 Full Face 30 Bi-Pap 01/03/19 01:00 135 39 135/86 (102) 97 01/03/19 00:00 99.0 98 30 152/87 (108) 97 01/03/19 00:00 Bi-pap 01/03/19 00:00 30 01/03/19 00:00 97 01/02/19 23:22 102 36 100 Full Face 30 104 29 100 Bi-Pap 30 01/02/19 23:00 116 31 147/76 (99) 01/02/19 22:00 117 35 143/70 (94) 74 01/02/19 21:30 103 30 100 Full Face 30 Bi-Pap 01/02/19 21:00 92 24 135/66 (89) 97 01/02/19 20:00 30 01/02/19 20:00 99.2 103 23 95/72 (80) 97 01/02/19 20:00 Bi-pap 01/02/19 20:00 104 01/02/19 19:40 95 21 96 Full Face 30 95 21 96 Bi-Pap 30 01/02/19 19:39 100 Bi-Pap 30 01/02/19 19:00 100 30 128/78 (95) 100 01/02/19 18:00 101 30 119/62 (81) 100 01/02/19 17:11 126 34 96 Full Face 30 01/02/19 17:00 96 30 116/51 (72) 95 01/02/19 16:00 Bi-pap 01/02/19 16:00 112 01/02/19 16:00 99.3 96 28 116/62 (80) 97 01/02/19 16:00 40 01/02/19 15:00 106 30 112/61 (78) 95 01/02/19 14:58 99.6 01/02/19 14:58 122 30 90 Full Face 30 01/02/19 14:00 109 26 115/57 (76) 91 01/02/19 13:01 117 25 96 Full Face 30 01/02/19 13:00 101 23 174/73 (106) 97 01/02/19 12:56 12.0 50 01/02/19 12:00 97 01/02/19 12:00 99.8 91 23 123/67 (85) 98 01/02/19 12:00 Bi-pap 01/02/19 11:05 12.0 50 01/02/19 11:01 117 22 100 Venturi Mask 50 98 22 01/02/19 11:00 109 38 122/59 (80) 100 Height (Feet): 5 Height (Inches): 9.00 Weight (Pounds): 297 General Appearance: no acute distress HEENT: mucous membranes moist Respiratory/Chest: lungs clear, other - oxygen by nasal cannula Abdomen: soft, non tender Extremities: no edema Neurologic/Psychiatric: alert, responsive Laboratory Tests Test 01/03/19 08:25 01/03/19 08:30 White Blood Count 15.3 K/UL (4.8-10.8) H Red Blood Count 4.05 M/UL (4.20-5.40) L Hemoglobin 12.9 G/DL (12.0-16.0) Hematocrit 36.7 % (37.0-47.0) L Mean Corpuscular Volume 91 FL (80-99) Mean Corpuscular Hemoglobin 31.8 PG (27.0-31.0) H Mean Corpuscular Hemoglobin Concent 35.0 G/DL (32.0-36.0) Red Cell Distribution Width 12.7 % (11.6-14.8) Platelet Count 232 K/UL (150-450) Mean Platelet Volume 4.9 FL (6.5-10.1) L Neutrophils (%) (Auto) 73.0 % (45.0-75.0) Lymphocytes (%) (Auto) 22.1 % (20.0-45.0) Monocytes (%) (Auto) 3.6 % (1.0-10.0) Eosinophils (%) (Auto) 0.3 % (0.0-3.0) Basophils (%) (Auto) 1.1 % (0.0-2.0) Sodium Level 145 MMOL/L (136-145) Potassium Level 2.9 MMOL/L (3.5-5.1) L Chloride Level 106 MMOL/L (98-107) Carbon Dioxide Level 29 MMOL/L (21-32) Anion Gap 10 mmol/L (5-15) Blood Urea Nitrogen 10 mg/dL (7-18) Creatinine 1.0 MG/DL (0.55-1.30) Estimat Glomerular Filtration Rate > 60 mL/min (>60) Glucose Level 106 MG/DL (74-106) Calcium Level 8.9 MG/DL (8.5-10.1) Arterial Blood pH 7.409 (7.350-7.450) Arterial Blood Partial Pressure CO2 38.9 mmHg (35.0-45.0) Arterial Blood Partial Pressure O2 74.2 mmHg (75.0-100.0) L Arterial Blood HCO3 24.0 mmol/L (22.0-26.0) Arterial Blood Oxygen Saturation 94.4 % (95-100) L Arterial Blood Base Excess -0.4 (-2-2) Luis Test Positive Current Medications Medications (Trade) Dose Ordered Sig/Amaya Route PRN Reason Start Time Stop Time Status Last Admin Dose Admin Acetaminophen (Tylenol) 650 mg Q4H PRN ORAL FOR TEMP >100.5 12/30/18 12:30 01/22/19 07:29 01/02/19 14:28 Acetylcysteine (Mucomyst) 200 mg Q4HRT N 12/24/18 23:00 01/23/19 12:59 01/03/19 07:44 Albuterol/ Ipratropium (Albuterol/ Ipratropium) 3 ml Q4HRT N 01/01/19 07:00 01/06/19 06:59 01/03/19 07:44 Clonidine HCl (Catapres Tab) 0.1 mg Q4H PRN ORAL bp over 165 syst 12/30/18 12:30 01/29/19 12:29 Dextrose (Dextrose 50%) 25 ml Q30M PRN IV Hypoglycemia 12/21/18 17:00 01/20/19 16:59 Dextrose (Dextrose 50%) 50 ml Q30M PRN IV Hypoglycemia 12/21/18 17:00 01/20/19 16:59 Dextrose/Sodium Chloride 1,000 ml @ 40 mls/hr Q24H IV 12/29/18 15:45 01/28/19 15:44 01/02/19 18:53 Diphenhydramine HCl (Benadryl) 50 mg Q6H PRN IM Restlessness 01/01/19 18:45 01/31/19 18:44 01/03/19 04:05 Docusate Sodium (Colace) 100 mg Q12HR ORAL 12/30/18 21:00 01/27/19 20:59 12/31/18 20:58 Doxycycline Monohydrate (Doxycycline Monohydrate) 100 mg EVERY 12 HOURS ORAL 12/30/18 21:00 01/03/19 13:29 01/03/19 08:12 Haloperidol Lactate (Haldol) 5 mg Q6H PRN IM Agitation 12/24/18 00:30 01/23/19 00:29 01/03/19 10:34 Insulin Aspart (NovoLOG) EVERY 6 HOURS SUBQ 12/21/18 18:00 01/20/19 17:59 12/29/18 17:56 Lactulose (Cephulac) 20 gm THREE TIMES A DAY ORAL 12/31/18 18:00 01/30/19 17:59 01/02/19 18:02 Methylprednisolone Sodium Succinate (Solu-MEDROL) 30 mg DAILY IVP 12/31/18 09:00 01/28/19 08:59 01/03/19 08:13 Olanzapine (ZyPREXA) 10 mg BID ORAL 01/01/19 22:00 01/31/19 18:44 01/03/19 08:13 Pantoprazole (Protonix) 40 mg EVERY 12 HOURS IVP 12/22/18 11:00 01/21/19 10:59 01/03/19 08:13 Polyethylene Glycol (Miralax) 17 gm BEDTIME ORAL 12/31/18 21:00 01/30/19 20:59 12/31/18 20:59 Polyethylene Glycol (Miralax) 17 gm DAILYPRN PRN ORAL Constipation 12/30/18 12:30 01/27/19 10:29 Potassium Chloride 100 ml @ 100 mls/hr Q1HR IVPB 01/03/19 10:00 01/03/19 11:59 01/03/19 10:27 Nikos Martinez MD Jan 03, 2019 10:47
--- NOTE | 2019-01-03 10:58 | GI Progress Note ---
Assessment/Plan Problems: (1) Anemia ICD Codes: D64.9 - Anemia, unspecified SNOMED: 812204852 (2) Salicylate overdose ICD Codes: T39.091A - Poisoning by salicylates, accidental (unintentional), initial encounter SNOMED: 981195627, 3830139 (3) Respiratory failure ICD Codes: J96.90 - Respiratory failure, unspecified, unspecified whether with hypoxia or hypercapnia SNOMED: 567073042 (4) Suicidal intent ICD Codes: R45.851 - Suicidal ideations SNOMED: 498301632 Status: stable Status Narrative Discussed with Dr. Saldana. Assessment/Plan No plans for GI procedures at this time Medical management for salicylate overdose on BIPAP Electrolyte correction anemia work up OB stool r/o GI bleed monitor H&H, prn transfusions bowel regimen with colace, miralax and lactulose ppi fu labs The patient was seen and examined at bedside and all new and available data was reviewed in the patients chart. I agree with the above findings, impression and plan. (Patient seen earlier today. Signature stamp does not reflect patient encounter time.). - Vladimir Saldana MD Subjective Subjective limited Objective Last 24 Hour Vital Signs Date Time Temp Pulse Resp B/P (MAP) Pulse Ox O2 Delivery O2 Flow Rate FiO2 01/03/19 10:00 110 32 143/63 (89) 96 01/03/19 09:00 122 34 132/60 (84) 99 01/03/19 08:00 45 01/03/19 08:00 Bi-pap 01/03/19 08:00 98.0 120 27 139/59 (85) 98 01/03/19 08:00 122 01/03/19 07:58 100 Nasal Cannula 2.0 28 01/03/19 07:36 110 29 93 2.0 28 01/03/19 07:00 110 30 151/82 (105) 94 01/03/19 06:00 115 33 134/96 (109) 99 01/03/19 05:03 111 33 100 Venturi Mask 10.0 45 01/03/19 05:00 45 01/03/19 05:00 103 25 124/80 (95) 99 01/03/19 04:00 55 01/03/19 04:00 99.6 107 23 155/79 (104) 99 01/03/19 04:00 106 01/03/19 04:00 Bi-pap 01/03/19 03:28 113 30 98 Full Face 30 115 26 99 Bi-Pap 30 01/03/19 03:00 109 29 141/82 (101) 97 01/03/19 02:00 107 28 147/82 (103) 98 01/03/19 01:23 91 29 98 Full Face 30 Bi-Pap 01/03/19 01:00 135 39 135/86 (102) 97 01/03/19 00:00 99.0 98 30 152/87 (108) 97 01/03/19 00:00 Bi-pap 01/03/19 00:00 30 01/03/19 00:00 97 01/02/19 23:22 102 36 100 Full Face 30 104 29 100 Bi-Pap 30 01/02/19 23:00 116 31 147/76 (99) 01/02/19 22:00 117 35 143/70 (94) 74 01/02/19 21:30 103 30 100 Full Face 30 Bi-Pap 01/02/19 21:00 92 24 135/66 (89) 97 01/02/19 20:00 30 01/02/19 20:00 99.2 103 23 95/72 (80) 97 01/02/19 20:00 Bi-pap 01/02/19 20:00 104 01/02/19 19:40 95 21 96 Full Face 30 95 21 96 Bi-Pap 30 01/02/19 19:39 100 Bi-Pap 30 01/02/19 19:00 100 30 128/78 (95) 100 01/02/19 18:00 101 30 119/62 (81) 100 01/02/19 17:11 126 34 96 Full Face 30 01/02/19 17:00 96 30 116/51 (72) 95 01/02/19 16:00 Bi-pap 01/02/19 16:00 112 01/02/19 16:00 99.3 96 28 116/62 (80) 97 01/02/19 16:00 40 01/02/19 15:00 106 30 112/61 (78) 95 01/02/19 14:58 99.6 01/02/19 14:58 122 30 90 Full Face 30 01/02/19 14:00 109 26 115/57 (76) 91 01/02/19 13:01 117 25 96 Full Face 30 01/02/19 13:00 101 23 174/73 (106) 97 01/02/19 12:56 12.0 50 01/02/19 12:00 97 01/02/19 12:00 99.8 91 23 123/67 (85) 98 01/02/19 12:00 Bi-pap 01/02/19 11:05 12.0 50 01/02/19 11:01 117 22 100 Venturi Mask 50 98 22 01/02/19 11:00 109 38 122/59 (80) 100 Intake and Output 01/02/19 01/03/19 19:00 07:00 Intake Total 405 ml 480 ml Output Total 1465 ml 400 ml Balance -1060 ml 80 ml IV Total 405 ml 480 ml Output Urine Total 1465 ml 400 ml # Bowel Movements 2 Laboratory Tests Test 01/03/19 08:25 01/03/19 08:30 White Blood Count 15.3 K/UL (4.8-10.8) H Red Blood Count 4.05 M/UL (4.20-5.40) L Hemoglobin 12.9 G/DL (12.0-16.0) Hematocrit 36.7 % (37.0-47.0) L Mean Corpuscular Volume 91 FL (80-99) Mean Corpuscular Hemoglobin 31.8 PG (27.0-31.0) H Mean Corpuscular Hemoglobin Concent 35.0 G/DL (32.0-36.0) Red Cell Distribution Width 12.7 % (11.6-14.8) Platelet Count 232 K/UL (150-450) Mean Platelet Volume 4.9 FL (6.5-10.1) L Neutrophils (%) (Auto) 73.0 % (45.0-75.0) Lymphocytes (%) (Auto) 22.1 % (20.0-45.0) Monocytes (%) (Auto) 3.6 % (1.0-10.0) Eosinophils (%) (Auto) 0.3 % (0.0-3.0) Basophils (%) (Auto) 1.1 % (0.0-2.0) Sodium Level 145 MMOL/L (136-145) Potassium Level 2.9 MMOL/L (3.5-5.1) L Chloride Level 106 MMOL/L (98-107) Carbon Dioxide Level 29 MMOL/L (21-32) Anion Gap 10 mmol/L (5-15) Blood Urea Nitrogen 10 mg/dL (7-18) Creatinine 1.0 MG/DL (0.55-1.30) Estimat Glomerular Filtration Rate > 60 mL/min (>60) Glucose Level 106 MG/DL (74-106) Calcium Level 8.9 MG/DL (8.5-10.1) Arterial Blood pH 7.409 (7.350-7.450) Arterial Blood Partial Pressure CO2 38.9 mmHg (35.0-45.0) Arterial Blood Partial Pressure O2 74.2 mmHg (75.0-100.0) L Arterial Blood HCO3 24.0 mmol/L (22.0-26.0) Arterial Blood Oxygen Saturation 94.4 % (95-100) L Arterial Blood Base Excess -0.4 (-2-2) Luis Test Positive Height (Feet): 5 Height (Inches): 9.00 Weight (Pounds): 297 General Appearance: WD/WN, no apparent distress, alert Cardiovascular: normal rate Respiratory/Chest: normal breath sounds, no respiratory distress Abdominal Exam: normal bowel sounds, non tender, soft Extremities: non-tender Marc Chaudhary NP Jan 03, 2019 10:58
--- NOTE | 2019-01-03 11:30 | NUR ---
NURSE NOTES: Message sent to Dr Canchola to get order for different or additional antianxiety meds. Awaiting call back. Will continue to monitor.
--- NOTE | 2019-01-03 13:35 | NUR ---
NURSE NOTES: Pt complained of being hungry. Discussed with Dr Monsalve. Swallow eval ordered. Awaiting bed in [facility]. Will continue to monitor.
[2019-01-03] MEDS ORDERED: DiphenhydrAMINE 50mg/ml Inj IM SCH (13:49)
--- NOTE | 2019-01-03 15:22 | Pulmonolgy Critical Care Note ---
Critical Care - Asmt/Plan Assessment/Plan: Pulmonary CCM Progress Note HPI Patient is a 58-year-old woman with apparent history of Obstructive Airways Disease, Schizophrenia, Obesity, presented with shortness of breath, increased anxiety. Remains on PRN BiPAP Noted to have elevated ASA level on admission FIO2 reduced , AB per ID, Diuresing well Improving mental status, Psychiatry following, more interactive today, SR eval pending Physical Exam Vital Signs Noted General Appearance: normal inspection, obese, awake Head: NCAT ENT: Moist mm, JVP not visible Neck: normal inspection, full range of motion, supple, no bony tend Respiratory: normal inspection, no respiratory distress, no retraction, no wheezing, reduced basal BS Cardiovascular: regular rate, rhythm, Normal HS1, HS2 Gastrointestinal: normal inspection, normal bowel sounds, non tender, soft, no guarding, no hernia Genitourinary: no CVA tenderness Musculoskeletal: normal inspection, minimal edema Neurologic: no focal signs noted, follows commands Impression: Respiratory failure - sp extubation, on PRN BiPAP Previously elevated Salicylate level Pneumonia Possible Congestive Heart Failure Salicylate overdose Schizophrenia/Psychosis Asthma Obesity Plan: Adjust FIO2, BiPAP PRN - wean as tolerated ABG CXR ID following IV Solumedrol reduced Sedation per Psychiatry - minimize Benzodiazepines if possible Aspiration precautions [facility]N [employer] med PRN Sedation PPX Keep negative balance - received Lasix again today ST eval Labs Noted CXR: ETT appropriate, basal infiltrates, vascular congestion Critical Care - Objective Last 24 Hour Vital Signs Date Time Temp Pulse Resp B/P (MAP) Pulse Ox O2 Delivery O2 Flow Rate FiO2 01/03/19 15:00 114 32 142/73 (96) 100 01/03/19 14:56 99 Nasal Cannula 2.0 28 01/03/19 14:55 122 32 97 2.0 28 01/03/19 14:00 107 37 125/111 (116) 99 01/03/19 13:00 110 33 128/50 (76) 96 01/03/19 12:00 97.9 127 28 147/132 (137) 95 01/03/19 12:00 45 01/03/19 12:00 132 01/03/19 12:00 Bi-pap 01/03/19 11:52 120 33 97 2.0 28 01/03/19 11:00 118 35 65/51 (56) 99 01/03/19 10:00 110 32 143/63 (89) 96 01/03/19 09:00 122 34 132/60 (84) 99 01/03/19 08:00 45 01/03/19 08:00 Bi-pap 01/03/19 08:00 98.0 120 27 139/59 (85) 98 01/03/19 08:00 122 01/03/19 07:58 100 Nasal Cannula 2.0 28 01/03/19 07:36 110 29 93 2.0 28 01/03/19 07:00 110 30 151/82 (105) 94 01/03/19 06:00 115 33 134/96 (109) 99 01/03/19 05:03 111 33 100 Venturi Mask 10.0 45 01/03/19 05:00 45 01/03/19 05:00 103 25 124/80 (95) 99 01/03/19 04:00 55 01/03/19 04:00 99.6 107 23 155/79 (104) 99 01/03/19 04:00 106 01/03/19 04:00 Bi-pap 01/03/19 03:28 113 30 98 Full Face 30 115 26 99 Bi-Pap 30 01/03/19 03:00 109 29 141/82 (101) 97 01/03/19 02:00 107 28 147/82 (103) 98 01/03/19 01:23 91 29 98 Full Face 30 Bi-Pap 01/03/19 01:00 135 39 135/86 (102) 97 01/03/19 00:00 99.0 98 30 152/87 (108) 97 01/03/19 00:00 Bi-pap 01/03/19 00:00 30 01/03/19 00:00 97 01/02/19 23:22 102 36 100 Full Face 30 104 29 100 Bi-Pap 30 01/02/19 23:00 116 31 147/76 (99) 01/02/19 22:00 117 35 143/70 (94) 74 01/02/19 21:30 103 30 100 Full Face 30 Bi-Pap 01/02/19 21:00 92 24 135/66 (89) 97 01/02/19 20:00 30 01/02/19 20:00 99.2 103 23 95/72 (80) 97 01/02/19 20:00 Bi-pap 01/02/19 20:00 104 01/02/19 19:40 95 21 96 Full Face 30 95 21 96 Bi-Pap 30 01/02/19 19:39 100 Bi-Pap 30 01/02/19 19:00 100 30 128/78 (95) 100 01/02/19 18:00 101 30 119/62 (81) 100 01/02/19 17:11 126 34 96 Full Face 30 01/02/19 17:00 96 30 116/51 (72) 95 01/02/19 16:00 Bi-pap 01/02/19 16:00 112 01/02/19 16:00 99.3 96 28 116/62 (80) 97 01/02/19 16:00 40 Accucheck: 179 Critical Care - Subjective ROS Limited/Unobtainable: No FI02: 28 Vent Support Breath Rate: 24 Vent Support Mode: BiLevel Vent Tidal Volume: 550 Sputum Amount: None PEEP: 5.0 PIP: 14 Tube Feeding Amount: 40 I&O: Intake and Output 01/02/19 01/03/19 19:00 07:00 Intake Total 405 ml 480 ml Output Total 1465 ml 400 ml Balance -1060 ml 80 ml IV Total 405 ml 480 ml Output Urine Total 1465 ml 400 ml # Bowel Movements 2 ET-Tube: 7.0 ET Position: 22 Kevan Monsalve MD Jan 03, 2019 15:22
--- NOTE | 2019-01-03 15:32 | NUR ---
NURSE NOTES: Pt increasingly agitated and restless. Pt a&o x 2-3, confused and forgetful. Pt Dr Canchola called and ordered another dose of Benadryl 50 mg IM. Will continue to monitor,
[2019-01-03] MEDS ORDERED: DiphenhydrAMINE 50mg/ml Inj IM PRN (17:00)
--- NOTE | 2019-01-03 17:16 | NUR ---
NURSE NOTES: 1700 received bedside report from Lee Ann LIMA. Pt. in bed, awake, a/o x 3. No sign of distress. On Venturi mask 10LPM. Denies pain at present. Bilateral soft wrist restrain in placed. IV at left wrist #22g. in placed patent/intact running D5 1/2NS @ 40cc/hr. Bed in low position, locked. Call light within reach. Will cont. to monitor.
--- NOTE | 2019-01-03 17:18 | NUR ---
HAND-OFF: Report given to Qing LIMA.
[2019-01-03] MEDS ORDERED: D5 1/2NS 1,000 ML IV SCH (17:30)
[2019-01-03] MEDS ORDERED: Acetaminophen 650mg/20.3ml ORAL PRN (17:30)
[2019-01-03] MEDS ORDERED: Miralax 17gm pkt ORAL PRN (17:30)
[2019-01-03] MEDS ORDERED: Haloperidol 5mg/ml Inj IM PRN (17:30)
--- NOTE | 2019-01-03 19:06 | Cardiology Progress Note ---
Assessment/Plan Assessment/Plan 1. Sinus tachycardia, most likely due to hypoxemia, there is no need for AV carissa agents. Will obtain 2D echo in view of persistent tachycardia. 2. Acute respiratory failure due to right lung whiteout, resolved, transferred to [facility], on bipap mask. 3. History of chronic obstructive pulmonary disease. 4. History of salicylate overdose. 5. Morbid obesity. 6. Hyperthyroidism. 7. Dyslipidemia. Subjective Subjective Transferred to [facility]. Awake and alert. Sinus tachycardia at 126. On bipap mask with FiO2 of 40%. Objective Last 24 Hour Vital Signs Date Time Temp Pulse Resp B/P (MAP) Pulse Ox O2 Delivery O2 Flow Rate FiO2 01/03/19 16:00 40 01/03/19 16:00 126 01/03/19 16:00 Bi-pap 01/03/19 16:00 98.0 120 33 148/74 (98) 93 01/03/19 15:00 114 32 142/73 (96) 100 01/03/19 14:56 99 Nasal Cannula 2.0 28 01/03/19 14:55 122 32 97 2.0 28 01/03/19 14:00 107 37 125/111 (116) 99 01/03/19 13:00 110 33 128/50 (76) 96 01/03/19 12:00 97.9 127 28 147/132 (137) 95 01/03/19 12:00 45 01/03/19 12:00 132 01/03/19 12:00 Bi-pap 01/03/19 11:52 120 33 97 2.0 28 01/03/19 11:00 118 35 65/51 (56) 99 01/03/19 10:00 110 32 143/63 (89) 96 01/03/19 09:00 122 34 132/60 (84) 99 01/03/19 08:00 45 01/03/19 08:00 Bi-pap 01/03/19 08:00 98.0 120 27 139/59 (85) 98 01/03/19 08:00 122 01/03/19 07:58 100 Nasal Cannula 2.0 28 01/03/19 07:36 110 29 93 2.0 28 01/03/19 07:00 110 30 151/82 (105) 94 01/03/19 06:00 115 33 134/96 (109) 99 01/03/19 05:03 111 33 100 Venturi Mask 10.0 45 01/03/19 05:00 45 01/03/19 05:00 103 25 124/80 (95) 99 01/03/19 04:00 55 01/03/19 04:00 99.6 107 23 155/79 (104) 99 01/03/19 04:00 106 01/03/19 04:00 Bi-pap 01/03/19 03:28 113 30 98 Full Face 30 115 26 99 Bi-Pap 30 01/03/19 03:00 109 29 141/82 (101) 97 01/03/19 02:00 107 28 147/82 (103) 98 01/03/19 01:23 91 29 98 Full Face 30 Bi-Pap 01/03/19 01:00 135 39 135/86 (102) 97 01/03/19 00:00 99.0 98 30 152/87 (108) 97 01/03/19 00:00 Bi-pap 01/03/19 00:00 30 01/03/19 00:00 97 01/02/19 23:22 102 36 100 Full Face 30 104 29 100 Bi-Pap 30 01/02/19 23:00 116 31 147/76 (99) 01/02/19 22:00 117 35 143/70 (94) 74 01/02/19 21:30 103 30 100 Full Face 30 Bi-Pap 01/02/19 21:00 92 24 135/66 (89) 97 01/02/19 20:00 30 01/02/19 20:00 99.2 103 23 95/72 (80) 97 01/02/19 20:00 Bi-pap 01/02/19 20:00 104 01/02/19 19:40 95 21 96 Full Face 30 95 21 96 Bi-Pap 30 01/02/19 19:39 100 Bi-Pap 30 Intake and Output 01/02/19 01/03/19 19:00 07:00 Intake Total 405 ml 480 ml Output Total 1465 ml 400 ml Balance -1060 ml 80 ml IV Total 405 ml 480 ml Output Urine Total 1465 ml 400 ml # Bowel Movements 2 Laboratory Tests Test 01/03/19 08:25 01/03/19 08:30 White Blood Count 15.3 K/UL (4.8-10.8) H Red Blood Count 4.05 M/UL (4.20-5.40) L Hemoglobin 12.9 G/DL (12.0-16.0) Hematocrit 36.7 % (37.0-47.0) L Mean Corpuscular Volume 91 FL (80-99) Mean Corpuscular Hemoglobin 31.8 PG (27.0-31.0) H Mean Corpuscular Hemoglobin Concent 35.0 G/DL (32.0-36.0) Red Cell Distribution Width 12.7 % (11.6-14.8) Platelet Count 232 K/UL (150-450) Mean Platelet Volume 4.9 FL (6.5-10.1) L Neutrophils (%) (Auto) 73.0 % (45.0-75.0) Lymphocytes (%) (Auto) 22.1 % (20.0-45.0) Monocytes (%) (Auto) 3.6 % (1.0-10.0) Eosinophils (%) (Auto) 0.3 % (0.0-3.0) Basophils (%) (Auto) 1.1 % (0.0-2.0) Sodium Level 145 MMOL/L (136-145) Potassium Level 2.9 MMOL/L (3.5-5.1) L Chloride Level 106 MMOL/L (98-107) Carbon Dioxide Level 29 MMOL/L (21-32) Anion Gap 10 mmol/L (5-15) Blood Urea Nitrogen 10 mg/dL (7-18) Creatinine 1.0 MG/DL (0.55-1.30) Estimat Glomerular Filtration Rate > 60 mL/min (>60) Glucose Level 106 MG/DL (74-106) Calcium Level 8.9 MG/DL (8.5-10.1) Arterial Blood pH 7.409 (7.350-7.450) Arterial Blood Partial Pressure CO2 38.9 mmHg (35.0-45.0) Arterial Blood Partial Pressure O2 74.2 mmHg (75.0-100.0) L Arterial Blood HCO3 24.0 mmol/L (22.0-26.0) Arterial Blood Oxygen Saturation 94.4 % (95-100) L Arterial Blood Base Excess -0.4 (-2-2) Luis Test Positive Objective HEENT: Atraumatic and normocephalic. Anicteric. Pupils are equal, round, and reactive to light and accommodation. On bipap mask. NECK: JVP cannot be assessed. No carotid bruit. CARDIOVASCULAR: Normal S1, S2. Regular rate and rhythm. Tachycardic. No murmurs, gallops, or rubs. PMI is at fourth intercostal space in the midclavicular line. LUNGS: Diminished breath sounds in both lungs. ABDOMEN: Soft, obese. No hepatosplenomegaly. Positive bowel sounds. EXTREMITIES: No evidence of edema, clubbing, or cyanosis. Velasquez Staton MD Jan 03, 2019 19:06
--- NOTE | 2019-01-03 19:40 | Hematology/Onc Progress Note ---
Assessment/Plan Assessment/Plan Assessment and Recs: # Leukocytosis is likely due to steriods --> monitor steriod use --> accuchecks qac and qhs --> insulin as needed prn --> on ctx/doxy per id prn --> wbc 12-->15->17-->18-->14.3-->14-->15.2 --> smear reviewed and no blasts noted # Anemia of iron deficiency with decreased ferritin --> No evidence of hemolysis is noted, peripheral smear has been reviewed. --> Hgb goal >7. Transfuse prn. --> Iron has been ordered x 1 dose given stable hgb --> Medications have been reviewed --> low threshold for gi evaluation in case has occult + --> hgb trend 11.6-->12.2-->12.1 # Salicylate overdose now improved --> Medical management for salicylate overdose --> Sodium bicarbonate --> IVF started, as per renal --> now improved # Electrolyte correction --> replace k prn basis # Resp failure --> 12/29 extubated on nc --> bipap The timing of this note does not necessarily reflect the time of the patient was seen. GREATLY APPRECIATE CONSULTATION. Subjective Constitutional: Denies: no symptoms, chills, fever, malaise, weakness, other HEENT: Denies: no symptoms, eye pain, blurred vision, tearing, double vision, ear pain, ear discharge, nose pain, nose congestion, throat pain, throat swelling, mouth pain, mouth swelling, other Respiratory: Denies: no symptoms, cough, shortness of breath, SOB with excertion, SOB at rest, sputum, wheezing, other Gastrointestinal/Abdominal: Denies: no symptoms, abdomen distended, abdominal pain, black stools, tarry stools, blood in stool, constipated, diarrhea, difficulty swallowing, nausea, poor appetite, poor fluid intake, rectal bleeding , vomiting, other Genitourinary: Denies: no symptoms, burning, discharge, frequency, flank pain, hematuria, incontinence, pain, urgency, other Neurologic/Psychiatric: Denies: no symptoms, anxiety, depressed, emotional problems, headache, numbness, paresthesia, pre-existing deficit, seizure, tingling, tremors, weakness, other Endocrine: Denies: no symptoms, excessive sweating, flushing, intolerance to cold, intolerance to heat, increased hunger, increased thirst, increased urine, unexplained weight gain, unexplained weight loss, other Allergies: Coded Allergies: No Known Allergies (Unverified , 11/07/13) Subjective 12/23: no events, no bleeding reported, tf held for potential extubation 12/24: icu, trach, agitated and confused, labs reviewed, abx, fentanyl 12/26: no bleeding, no chills, still on abx, fentayl, labs reviewed 12/27: dox and ctx, no bleeding sputum cultures reviewed 12/29: turned, repositioned, remains npo, labs noted 12/30: icu, restless, on abx, no signs of distress, labs reviewed, no fever 12/31: remain in icu, agitated, on seroquel, on restraints, labs reviewed 01/01: remains agitated and restless, on bipap in the icu 01/03: no bleeding, no f, c, no night sweats, no major events Objective Objective Current Medications Medications (Trade) Dose Ordered Sig/Amaya Route PRN Reason Start Time Stop Time Status Last Admin Dose Admin Acetaminophen (Tylenol) 650 mg Q4H PRN ORAL FOR TEMP >100.5 01/03/19 17:30 01/22/19 17:29 Acetylcysteine (Mucomyst) 200 mg Q4HRT N 01/03/19 19:00 01/23/19 12:59 Albuterol/ Ipratropium (Albuterol/ Ipratropium) 3 ml Q4HRT N 01/03/19 19:00 01/06/19 06:59 Clonidine HCl (Catapres Tab) 0.1 mg Q4H PRN ORAL bp over 165 syst 01/03/19 17:30 01/29/19 17:29 Dextrose (Dextrose 50%) 25 ml Q30M PRN IV Hypoglycemia 01/03/19 17:30 01/20/19 16:59 Dextrose (Dextrose 50%) 50 ml Q30M PRN IV Hypoglycemia 01/03/19 17:30 01/20/19 16:59 Dextrose/Sodium Chloride 1,000 ml @ 40 mls/hr Q24H IV 01/03/19 17:30 01/28/19 15:44 Diphenhydramine HCl (Benadryl) 50 mg Q6H PRN IM Restlessness 01/03/19 17:00 01/31/19 16:59 Docusate Sodium (Colace) 100 mg Q12HR ORAL 01/03/19 21:00 01/27/19 20:59 Haloperidol Lactate (Haldol) 5 mg Q6H PRN IM Agitation 01/03/19 17:30 01/23/19 17:29 Insulin Aspart (NovoLOG) EVERY 6 HOURS SUBQ 01/03/19 18:00 01/20/19 17:59 Lactulose (Cephulac) 20 gm THREE TIMES A DAY ORAL 01/03/19 18:00 01/30/19 17:59 01/03/19 19:01 Methylprednisolone Sodium Succinate (Solu-MEDROL) 30 mg DAILY IVP 01/04/19 09:00 01/28/19 08:59 Olanzapine (ZyPREXA) 10 mg BID ORAL 01/03/19 18:00 01/31/19 18:44 01/03/19 19:01 Pantoprazole (Protonix) 40 mg EVERY 12 HOURS IVP 01/03/19 21:00 01/21/19 10:59 Polyethylene Glycol (Miralax) 17 gm BEDTIME ORAL 01/03/19 21:00 01/30/19 20:59 Polyethylene Glycol (Miralax) 17 gm DAILYPRN PRN ORAL Constipation 01/03/19 17:30 02/02/19 17:29 Last 24 Hour Vital Signs Date Time Temp Pulse Resp B/P (MAP) Pulse Ox O2 Delivery O2 Flow Rate FiO2 01/03/19 16:00 40 01/03/19 16:00 126 01/03/19 16:00 Bi-pap 01/03/19 16:00 98.0 120 33 148/74 (98) 93 01/03/19 15:00 114 32 142/73 (96) 100 01/03/19 14:56 99 Nasal Cannula 2.0 28 01/03/19 14:55 122 32 97 2.0 28 01/03/19 14:00 107 37 125/111 (116) 99 01/03/19 13:00 110 33 128/50 (76) 96 01/03/19 12:00 97.9 127 28 147/132 (137) 95 01/03/19 12:00 45 01/03/19 12:00 132 01/03/19 12:00 Bi-pap 01/03/19 11:52 120 33 97 2.0 28 01/03/19 11:00 118 35 65/51 (56) 99 01/03/19 10:00 110 32 143/63 (89) 96 01/03/19 09:00 122 34 132/60 (84) 99 01/03/19 08:00 45 01/03/19 08:00 Bi-pap 01/03/19 08:00 98.0 120 27 139/59 (85) 98 01/03/19 08:00 122 01/03/19 07:58 100 Nasal Cannula 2.0 28 01/03/19 07:36 110 29 93 2.0 28 01/03/19 07:00 110 30 151/82 (105) 94 01/03/19 06:00 115 33 134/96 (109) 99 01/03/19 05:03 111 33 100 Venturi Mask 10.0 45 01/03/19 05:00 45 01/03/19 05:00 103 25 124/80 (95) 99 01/03/19 04:00 55 01/03/19 04:00 99.6 107 23 155/79 (104) 99 01/03/19 04:00 106 01/03/19 04:00 Bi-pap 01/03/19 03:28 113 30 98 Full Face 30 115 26 99 Bi-Pap 30 01/03/19 03:00 109 29 141/82 (101) 97 01/03/19 02:00 107 28 147/82 (103) 98 01/03/19 01:23 91 29 98 Full Face 30 Bi-Pap 01/03/19 01:00 135 39 135/86 (102) 97 01/03/19 00:00 99.0 98 30 152/87 (108) 97 01/03/19 00:00 Bi-pap 01/03/19 00:00 30 01/03/19 00:00 97 01/02/19 23:22 102 36 100 Full Face 30 104 29 100 Bi-Pap 30 01/02/19 23:00 116 31 147/76 (99) 01/02/19 22:00 117 35 143/70 (94) 74 01/02/19 21:30 103 30 100 Full Face 30 Bi-Pap 01/02/19 21:00 92 24 135/66 (89) 97 01/02/19 20:00 30 01/02/19 20:00 99.2 103 23 95/72 (80) 97 01/02/19 20:00 Bi-pap 01/02/19 20:00 104 01/02/19 19:40 95 21 96 Full Face 30 95 21 96 Bi-Pap 30 01/02/19 19:39 100 Bi-Pap 30 01/02/19 19:00 100 30 128/78 (95) 100 01/02/19 18:00 101 30 119/62 (81) 100 01/02/19 17:11 126 34 96 Full Face 30 01/02/19 17:00 96 30 116/51 (72) 95 01/02/19 16:00 Bi-pap 01/02/19 16:00 112 01/02/19 16:00 99.3 96 28 116/62 (80) 97 01/02/19 16:00 40 01/02/19 15:00 106 30 112/61 (78) 95 01/02/19 14:58 99.6 01/02/19 14:58 122 30 90 Full Face 30 01/02/19 14:00 109 26 115/57 (76) 91 01/02/19 13:01 117 25 96 Full Face 30 01/02/19 13:00 101 23 174/73 (106) 97 01/02/19 12:56 12.0 50 01/02/19 12:00 97 01/02/19 12:00 99.8 91 23 123/67 (85) 98 01/02/19 12:00 Bi-pap 01/02/19 11:05 12.0 50 01/02/19 11:01 117 22 100 Venturi Mask 50 98 22 01/02/19 11:00 109 38 122/59 (80) 100 01/02/19 10:00 93 39 119/67 (84) 99 01/02/19 09:00 95 38 114/57 (76) 98 01/02/19 08:51 112 31 97 Full Face 30 01/02/19 08:00 99.8 91 23 123/67 (85) 98 01/02/19 08:00 Bi-pap 01/02/19 08:00 30 01/02/19 08:00 87 01/02/19 07:32 30 01/02/19 07:08 100 Bi-Pap 40 01/02/19 07:06 84 25 98 Full Face 40 86 25 100 Bi-Pap 40 01/02/19 07:00 90 25 115/49 (71) 98 01/02/19 06:00 93 29 117/55 (75) 98 01/02/19 05:00 108 26 120/66 (84) 99 01/02/19 04:51 82 31 100 Facial 40 01/02/19 04:00 88 01/02/19 04:00 40 01/02/19 04:00 99.0 91 23 125/67 (86) 98 01/02/19 04:00 Bi-pap 01/02/19 03:00 124 37 120/86 (97) 98 01/02/19 02:33 87 36 99 Full Face 40 87 37 99 Bi-Pap 40 01/02/19 02:00 115 30 134/68 (90) 98 01/02/19 01:06 81 29 96 Facial 40 01/02/19 01:00 78 41 127/61 (83) 97 01/02/19 00:00 Bi-pap 01/02/19 00:00 40 01/02/19 00:00 72 01/02/19 00:00 99.3 84 31 119/100 (106) 100 01/01/19 23:49 72 25 100 Full Face 40 76 25 100 Bi-Pap 40 01/01/19 23:00 82 30 110/59 (76) 100 01/01/19 22:00 80 26 101/61 (74) 100 01/01/19 21:16 79 27 100 Facial 40 01/01/19 21:00 95 29 116/59 (78) 99 01/01/19 20:00 Bi-pap 01/01/19 20:00 89 01/01/19 20:00 40 01/01/19 20:00 99.0 112 30 130/60 (83) 100 01/01/19 19:39 95 21 100 Full Face 40 106 21 100 Bi-Pap 40 Intake and Output 01/02/19 01/03/19 19:00 07:00 Intake Total 405 ml 480 ml Output Total 1465 ml 400 ml Balance -1060 ml 80 ml IV Total 405 ml 480 ml Output Urine Total 1465 ml 400 ml # Bowel Movements 2 Labs Test 01/01/19 10:10 01/01/19 10:51 01/02/19 04:45 01/02/19 04:57 Arterial Blood pH 7.402 (7.350-7.450) Arterial Blood Partial Pressure CO2 42.5 mmHg (35.0-45.0) Arterial Blood Partial Pressure O2 85.2 mmHg (75.0-100.0) Arterial Blood HCO3 25.9 mmol/L (22.0-26.0) Arterial Blood Oxygen Saturation 95.8 % (95-100) Arterial Blood Base Excess 0.9 (-2-2) Luis Test Positive White Blood Count 15.2 K/UL (4.8-10.8) 14.2 K/UL (4.8-10.8) Red Blood Count 3.92 M/UL (4.20-5.40) 3.89 M/UL (4.20-5.40) Hemoglobin 12.1 G/DL (12.0-16.0) 12.0 G/DL (12.0-16.0) Hematocrit 37.7 % (37.0-47.0) 37.4 % (37.0-47.0) Mean Corpuscular Volume 96 FL (80-99) 96 FL (80-99) Mean Corpuscular Hemoglobin 30.8 PG (27.0-31.0) 31.0 PG (27.0-31.0) Mean Corpuscular Hemoglobin Concent 32.0 G/DL (32.0-36.0) 32.2 G/DL (32.0-36.0) Red Cell Distribution Width 13.3 % (11.6-14.8) 13.0 % (11.6-14.8) Platelet Count 234 K/UL (150-450) 232 K/UL (150-450) Mean Platelet Volume 5.0 FL (6.5-10.1) 5.1 FL (6.5-10.1) Neutrophils (%) (Auto) 68.8 % (45.0-75.0) 77.6 % (45.0-75.0) Lymphocytes (%) (Auto) 22.7 % (20.0-45.0) 16.1 % (20.0-45.0) Monocytes (%) (Auto) 6.3 % (1.0-10.0) 5.4 % (1.0-10.0) Eosinophils (%) (Auto) 0.8 % (0.0-3.0) 0.3 % (0.0-3.0) Basophils (%) (Auto) 1.5 % (0.0-2.0) 0.7 % (0.0-2.0) Sodium Level 142 MMOL/L (136-145) 141 MMOL/L (136-145) Potassium Level 3.6 MMOL/L (3.5-5.1) 4.1 MMOL/L (3.5-5.1) Chloride Level 105 MMOL/L (98-107) 104 MMOL/L (98-107) Carbon Dioxide Level 30 MMOL/L (21-32) 29 MMOL/L (21-32) Anion Gap 7 mmol/L (5-15) 8 mmol/L (5-15) Blood Urea Nitrogen 14 mg/dL (7-18) 13 mg/dL (7-18) Creatinine 0.9 MG/DL (0.55-1.30) 0.8 MG/DL (0.55-1.30) Estimat Glomerular Filtration Rate > 60 mL/min (>60) > 60 mL/min (>60) Glucose Level 103 MG/DL (74-106) 131 MG/DL (74-106) Calcium Level 8.6 MG/DL (8.5-10.1) 8.7 MG/DL (8.5-10.1) Uric Acid 3.9 MG/DL (2.6-7.2) Phosphorus Level 3.0 MG/DL (2.5-4.9) Magnesium Level 2.0 MG/DL (1.8-2.4) Total Bilirubin 0.5 MG/DL (0.2-1.0) Aspartate Amino Transf (AST/SGOT) 22 U/L (15-37) Alanine Aminotransferase (ALT/SGPT) 51 U/L (12-78) Alkaline Phosphatase 66 U/L (46-116) Total Protein 6.1 G/DL (6.4-8.2) Albumin 2.6 G/DL (3.4-5.0) Globulin 3.5 g/dL Albumin/Globulin Ratio 0.7 (1.0-2.7) Test 01/03/19 08:25 01/03/19 08:30 White Blood Count 15.3 K/UL (4.8-10.8) Red Blood Count 4.05 M/UL (4.20-5.40) Hemoglobin 12.9 G/DL (12.0-16.0) Hematocrit 36.7 % (37.0-47.0) Mean Corpuscular Volume 91 FL (80-99) Mean Corpuscular Hemoglobin 31.8 PG (27.0-31.0) Mean Corpuscular Hemoglobin Concent 35.0 G/DL (32.0-36.0) Red Cell Distribution Width 12.7 % (11.6-14.8) Platelet Count 232 K/UL (150-450) Mean Platelet Volume 4.9 FL (6.5-10.1) Neutrophils (%) (Auto) 73.0 % (45.0-75.0) Lymphocytes (%) (Auto) 22.1 % (20.0-45.0) Monocytes (%) (Auto) 3.6 % (1.0-10.0) Eosinophils (%) (Auto) 0.3 % (0.0-3.0) Basophils (%) (Auto) 1.1 % (0.0-2.0) Sodium Level 145 MMOL/L (136-145) Potassium Level 2.9 MMOL/L (3.5-5.1) Chloride Level 106 MMOL/L (98-107) Carbon Dioxide Level 29 MMOL/L (21-32) Anion Gap 10 mmol/L (5-15) Blood Urea Nitrogen 10 mg/dL (7-18) Creatinine 1.0 MG/DL (0.55-1.30) Estimat Glomerular Filtration Rate > 60 mL/min (>60) Glucose Level 106 MG/DL (74-106) Calcium Level 8.9 MG/DL (8.5-10.1) Arterial Blood pH 7.409 (7.350-7.450) Arterial Blood Partial Pressure CO2 38.9 mmHg (35.0-45.0) Arterial Blood Partial Pressure O2 74.2 mmHg (75.0-100.0) Arterial Blood HCO3 24.0 mmol/L (22.0-26.0) Arterial Blood Oxygen Saturation 94.4 % (95-100) Arterial Blood Base Excess -0.4 (-2-2) Luis Test Positive Height (Feet): 5 Height (Inches): 9.00 Weight (Pounds): 297 Objective Physical Exam General Appearance: well appearing, nad, obese Head: normocephalic ++ ogt Resp: normal breath sounds bipap++ Cardiovascular: normal rate Gastrointestinal: normal inspection, non tender, soft, normal bowel sounds, non -distended Msk: normal inspection, back normal Skin: normal inspection, normal color, no rash, warm/dry, palpation normal, well hydrated Lymphatic: normal inspection, no adenopathy Wade Bonds MD Jan 03, 2019 19:40
--- NOTE | 2019-01-03 19:42 | NUR ---
HAND-OFF: Report given to Noble LIMA. Pt. started to be restless but remain stable.
[2019-01-03] MEDS: Miralax 17gm pkt ORAL SCH (20:30)
--- NOTE | 2019-01-03 21:06 | Hematology/Onc Progress Note ---
Assessment/Plan Assessment/Plan LATE ENTRY NOTE 01/02/2019 Assessment/Plan Assessment/Plan Assessment/Plan Assessment and Recs: # Leukocytosis is likely due to steroids --> monitor steriod use --> accuchecks qac and qhs --> insulin as needed prn --> on ctx/doxy per id prn --> wbc 12-->15->17-->18-->14.3-->14-->15.2 --> smear reviewed and no blasts noted # Anemia of iron deficiency with decreased ferritin --> No evidence of hemolysis is noted, peripheral smear has been reviewed. --> Hgb goal >7. Transfuse prn. --> Iron has been ordered x 1 dose given stable hgb --> Medications have been reviewed --> low threshold for gi evaluation in case has occult + --> hgb trend 11.6-->12.2-->12.1 # Salicylate overdose now improved --> Medical management for salicylate overdose --> Sodium bicarbonate --> IVF started, as per renal --> now improved # Electrolyte correction --> replace k prn basis # Resp failure --> 12/29 extubated on nc --> ++bipap The timing of this note does not necessarily reflect the time of the patient was seen. GREATLY APPRECIATE CONSULTATION. Subjective Allergies: Coded Allergies: No Known Allergies (Unverified , 11/07/13) Subjective Subjective 12/23: no events, no bleeding reported, tf held for potential extubation 12/24: icu, trach, agitated and confused, labs reviewed, abx, fentanyl 12/26: no bleeding, no chills, still on abx, fentayl, labs reviewed 12/27: dox and ctx, no bleeding sputum cultures reviewed 12/29: turned, repositioned, remains npo, labs noted 12/30: icu, restless, on abx, no signs of distress, labs reviewed, no fever 12/31: remain in icu, agitated, on seroquel, on restraints, labs reviewed 01/01: remains agitated and restless, on bipap in the icu 01/02: remains on BIPAP, bilat wrist restraints. Objective Objective Current Medications Medications (Trade) Dose Ordered Sig/Amaya Route PRN Reason Start Time Stop Time Status Last Admin Dose Admin Acetaminophen (Tylenol) 650 mg Q4H PRN ORAL FOR TEMP >100.5 01/03/19 17:30 01/22/19 17:29 Acetylcysteine (Mucomyst) 200 mg Q4HRT HHN 01/03/19 19:00 01/23/19 12:59 01/03/19 19:55 Albuterol/ Ipratropium (Albuterol/ Ipratropium) 3 ml Q4HRT N 01/03/19 19:00 01/06/19 06:59 01/03/19 19:54 Clonidine HCl (Catapres Tab) 0.1 mg Q4H PRN ORAL bp over 165 syst 01/03/19 17:30 01/29/19 17:29 Dextrose (Dextrose 50%) 25 ml Q30M PRN IV Hypoglycemia 01/03/19 17:30 01/20/19 16:59 Dextrose (Dextrose 50%) 50 ml Q30M PRN IV Hypoglycemia 01/03/19 17:30 01/20/19 16:59 Dextrose/Sodium Chloride 1,000 ml @ 40 mls/hr Q24H IV 01/03/19 17:30 01/28/19 15:44 Diphenhydramine HCl (Benadryl) 50 mg Q6H PRN IM Restlessness 01/03/19 17:00 01/31/19 16:59 Docusate Sodium (Colace) 100 mg Q12HR ORAL 01/03/19 21:00 01/27/19 20:59 Haloperidol Lactate (Haldol) 5 mg Q6H PRN IM Agitation 01/03/19 17:30 01/23/19 17:29 Insulin Aspart (NovoLOG) EVERY 6 HOURS SUBQ 01/03/19 18:00 01/20/19 17:59 Lactulose (Cephulac) 20 gm THREE TIMES A DAY ORAL 01/03/19 18:00 01/30/19 17:59 01/03/19 19:01 Methylprednisolone Sodium Succinate (Solu-MEDROL) 30 mg DAILY IVP 01/04/19 09:00 01/28/19 08:59 Olanzapine (ZyPREXA) 10 mg BID ORAL 01/03/19 18:00 01/31/19 18:44 01/03/19 19:01 Pantoprazole (Protonix) 40 mg EVERY 12 HOURS IVP 01/03/19 21:00 01/21/19 10:59 01/03/19 20:30 Polyethylene Glycol (Miralax) 17 gm BEDTIME ORAL 01/03/19 21:00 01/30/19 20:59 Polyethylene Glycol (Miralax) 17 gm DAILYPRN PRN ORAL Constipation 01/03/19 17:30 02/02/19 17:29 Last 24 Hour Vital Signs Date Time Temp Pulse Resp B/P (MAP) Pulse Ox O2 Delivery O2 Flow Rate FiO2 01/03/19 19:55 109 25 96 Venturi Mask 8.0 40 01/03/19 19:55 109 25 96 Venturi Mask 10.0 45 01/03/19 19:49 97 Venturi Mask 10.0 45 01/03/19 16:00 40 01/03/19 16:00 126 01/03/19 16:00 Bi-pap 01/03/19 16:00 98.0 120 33 148/74 (98) 93 01/03/19 15:00 114 32 142/73 (96) 100 01/03/19 14:56 99 Nasal Cannula 2.0 28 01/03/19 14:55 122 32 97 2.0 28 01/03/19 14:00 107 37 125/111 (116) 99 01/03/19 13:00 110 33 128/50 (76) 96 01/03/19 12:00 97.9 127 28 147/132 (137) 95 01/03/19 12:00 45 01/03/19 12:00 132 01/03/19 12:00 Bi-pap 01/03/19 11:52 120 33 97 2.0 28 01/03/19 11:00 118 35 65/51 (56) 99 01/03/19 10:00 110 32 143/63 (89) 96 01/03/19 09:00 122 34 132/60 (84) 99 01/03/19 08:00 45 01/03/19 08:00 Bi-pap 01/03/19 08:00 98.0 120 27 139/59 (85) 98 01/03/19 08:00 122 01/03/19 07:58 100 Nasal Cannula 2.0 28 01/03/19 07:36 110 29 93 2.0 28 01/03/19 07:00 110 30 151/82 (105) 94 01/03/19 06:00 115 33 134/96 (109) 99 01/03/19 05:03 111 33 100 Venturi Mask 10.0 45 01/03/19 05:00 45 01/03/19 05:00 103 25 124/80 (95) 99 01/03/19 04:00 55 01/03/19 04:00 99.6 107 23 155/79 (104) 99 01/03/19 04:00 106 01/03/19 04:00 Bi-pap 01/03/19 03:28 113 30 98 Full Face 30 115 26 99 Bi-Pap 30 01/03/19 03:00 109 29 141/82 (101) 97 01/03/19 02:00 107 28 147/82 (103) 98 01/03/19 01:23 91 29 98 Full Face 30 Bi-Pap 01/03/19 01:00 135 39 135/86 (102) 97 01/03/19 00:00 99.0 98 30 152/87 (108) 97 01/03/19 00:00 Bi-pap 01/03/19 00:00 30 01/03/19 00:00 97 01/02/19 23:22 102 36 100 Full Face 30 104 29 100 Bi-Pap 30 01/02/19 23:00 116 31 147/76 (99) 01/02/19 22:00 117 35 143/70 (94) 74 01/02/19 21:30 103 30 100 Full Face 30 Bi-Pap 01/02/19 21:00 92 24 135/66 (89) 97 01/02/19 20:00 30 01/02/19 20:00 99.2 103 23 95/72 (80) 97 01/02/19 20:00 Bi-pap 01/02/19 20:00 104 01/02/19 19:40 95 21 96 Full Face 30 95 21 96 Bi-Pap 30 01/02/19 19:39 100 Bi-Pap 30 01/02/19 19:00 100 30 128/78 (95) 100 01/02/19 18:00 101 30 119/62 (81) 100 01/02/19 17:11 126 34 96 Full Face 30 01/02/19 17:00 96 30 116/51 (72) 95 01/02/19 16:00 Bi-pap 01/02/19 16:00 112 01/02/19 16:00 99.3 96 28 116/62 (80) 97 01/02/19 16:00 40 01/02/19 15:00 106 30 112/61 (78) 95 01/02/19 14:58 99.6 01/02/19 14:58 122 30 90 Full Face 30 01/02/19 14:00 109 26 115/57 (76) 91 01/02/19 13:01 117 25 96 Full Face 30 01/02/19 13:00 101 23 174/73 (106) 97 01/02/19 12:56 12.0 50 01/02/19 12:00 97 01/02/19 12:00 99.8 91 23 123/67 (85) 98 01/02/19 12:00 Bi-pap 01/02/19 11:05 12.0 50 01/02/19 11:01 117 22 100 Venturi Mask 50 98 22 01/02/19 11:00 109 38 122/59 (80) 100 01/02/19 10:00 93 39 119/67 (84) 99 01/02/19 09:00 95 38 114/57 (76) 98 01/02/19 08:51 112 31 97 Full Face 30 01/02/19 08:00 99.8 91 23 123/67 (85) 98 01/02/19 08:00 Bi-pap 01/02/19 08:00 30 01/02/19 08:00 87 01/02/19 07:32 30 01/02/19 07:08 100 Bi-Pap 40 01/02/19 07:06 84 25 98 Full Face 40 86 25 100 Bi-Pap 40 01/02/19 07:00 90 25 115/49 (71) 98 01/02/19 06:00 93 29 117/55 (75) 98 01/02/19 05:00 108 26 120/66 (84) 99 01/02/19 04:51 82 31 100 Facial 40 01/02/19 04:00 88 01/02/19 04:00 40 01/02/19 04:00 99.0 91 23 125/67 (86) 98 01/02/19 04:00 Bi-pap 01/02/19 03:00 124 37 120/86 (97) 98 01/02/19 02:33 87 36 99 Full Face 40 87 37 99 Bi-Pap 40 01/02/19 02:00 115 30 134/68 (90) 98 01/02/19 01:06 81 29 96 Facial 40 01/02/19 01:00 78 41 127/61 (83) 97 01/02/19 00:00 Bi-pap 01/02/19 00:00 40 01/02/19 00:00 72 01/02/19 00:00 99.3 84 31 119/100 (106) 100 01/01/19 23:49 72 25 100 Full Face 40 76 25 100 Bi-Pap 40 01/01/19 23:00 82 30 110/59 (76) 100 01/01/19 22:00 80 26 101/61 (74) 100 01/01/19 21:16 79 27 100 Facial 40 Intake and Output 01/02/19 01/03/19 19:00 07:00 Intake Total 405 ml 480 ml Output Total 1465 ml 400 ml Balance -1060 ml 80 ml IV Total 405 ml 480 ml Output Urine Total 1465 ml 400 ml # Bowel Movements 2 Labs Test 01/01/19 10:10 01/01/19 10:51 01/02/19 04:45 01/02/19 04:57 Arterial Blood pH 7.402 (7.350-7.450) Arterial Blood Partial Pressure CO2 42.5 mmHg (35.0-45.0) Arterial Blood Partial Pressure O2 85.2 mmHg (75.0-100.0) Arterial Blood HCO3 25.9 mmol/L (22.0-26.0) Arterial Blood Oxygen Saturation 95.8 % (95-100) Arterial Blood Base Excess 0.9 (-2-2) Luis Test Positive White Blood Count 15.2 K/UL (4.8-10.8) 14.2 K/UL (4.8-10.8) Red Blood Count 3.92 M/UL (4.20-5.40) 3.89 M/UL (4.20-5.40) Hemoglobin 12.1 G/DL (12.0-16.0) 12.0 G/DL (12.0-16.0) Hematocrit 37.7 % (37.0-47.0) 37.4 % (37.0-47.0) Mean Corpuscular Volume 96 FL (80-99) 96 FL (80-99) Mean Corpuscular Hemoglobin 30.8 PG (27.0-31.0) 31.0 PG (27.0-31.0) Mean Corpuscular Hemoglobin Concent 32.0 G/DL (32.0-36.0) 32.2 G/DL (32.0-36.0) Red Cell Distribution Width 13.3 % (11.6-14.8) 13.0 % (11.6-14.8) Platelet Count 234 K/UL (150-450) 232 K/UL (150-450) Mean Platelet Volume 5.0 FL (6.5-10.1) 5.1 FL (6.5-10.1) Neutrophils (%) (Auto) 68.8 % (45.0-75.0) 77.6 % (45.0-75.0) Lymphocytes (%) (Auto) 22.7 % (20.0-45.0) 16.1 % (20.0-45.0) Monocytes (%) (Auto) 6.3 % (1.0-10.0) 5.4 % (1.0-10.0) Eosinophils (%) (Auto) 0.8 % (0.0-3.0) 0.3 % (0.0-3.0) Basophils (%) (Auto) 1.5 % (0.0-2.0) 0.7 % (0.0-2.0) Sodium Level 142 MMOL/L (136-145) 141 MMOL/L (136-145) Potassium Level 3.6 MMOL/L (3.5-5.1) 4.1 MMOL/L (3.5-5.1) Chloride Level 105 MMOL/L (98-107) 104 MMOL/L (98-107) Carbon Dioxide Level 30 MMOL/L (21-32) 29 MMOL/L (21-32) Anion Gap 7 mmol/L (5-15) 8 mmol/L (5-15) Blood Urea Nitrogen 14 mg/dL (7-18) 13 mg/dL (7-18) Creatinine 0.9 MG/DL (0.55-1.30) 0.8 MG/DL (0.55-1.30) Estimat Glomerular Filtration Rate > 60 mL/min (>60) > 60 mL/min (>60) Glucose Level 103 MG/DL (74-106) 131 MG/DL (74-106) Calcium Level 8.6 MG/DL (8.5-10.1) 8.7 MG/DL (8.5-10.1) Uric Acid 3.9 MG/DL (2.6-7.2) Phosphorus Level 3.0 MG/DL (2.5-4.9) Magnesium Level 2.0 MG/DL (1.8-2.4) Total Bilirubin 0.5 MG/DL (0.2-1.0) Aspartate Amino Transf (AST/SGOT) 22 U/L (15-37) Alanine Aminotransferase (ALT/SGPT) 51 U/L (12-78) Alkaline Phosphatase 66 U/L (46-116) Total Protein 6.1 G/DL (6.4-8.2) Albumin 2.6 G/DL (3.4-5.0) Globulin 3.5 g/dL Albumin/Globulin Ratio 0.7 (1.0-2.7) Test 01/03/19 08:25 01/03/19 08:30 White Blood Count 15.3 K/UL (4.8-10.8) Red Blood Count 4.05 M/UL (4.20-5.40) Hemoglobin 12.9 G/DL (12.0-16.0) Hematocrit 36.7 % (37.0-47.0) Mean Corpuscular Volume 91 FL (80-99) Mean Corpuscular Hemoglobin 31.8 PG (27.0-31.0) Mean Corpuscular Hemoglobin Concent 35.0 G/DL (32.0-36.0) Red Cell Distribution Width 12.7 % (11.6-14.8) Platelet Count 232 K/UL (150-450) Mean Platelet Volume 4.9 FL (6.5-10.1) Neutrophils (%) (Auto) 73.0 % (45.0-75.0) Lymphocytes (%) (Auto) 22.1 % (20.0-45.0) Monocytes (%) (Auto) 3.6 % (1.0-10.0) Eosinophils (%) (Auto) 0.3 % (0.0-3.0) Basophils (%) (Auto) 1.1 % (0.0-2.0) Sodium Level 145 MMOL/L (136-145) Potassium Level 2.9 MMOL/L (3.5-5.1) Chloride Level 106 MMOL/L (98-107) Carbon Dioxide Level 29 MMOL/L (21-32) Anion Gap 10 mmol/L (5-15) Blood Urea Nitrogen 10 mg/dL (7-18) Creatinine 1.0 MG/DL (0.55-1.30) Estimat Glomerular Filtration Rate > 60 mL/min (>60) Glucose Level 106 MG/DL (74-106) Calcium Level 8.9 MG/DL (8.5-10.1) Arterial Blood pH 7.409 (7.350-7.450) Arterial Blood Partial Pressure CO2 38.9 mmHg (35.0-45.0) Arterial Blood Partial Pressure O2 74.2 mmHg (75.0-100.0) Arterial Blood HCO3 24.0 mmol/L (22.0-26.0) Arterial Blood Oxygen Saturation 94.4 % (95-100) Arterial Blood Base Excess -0.4 (-2-2) Luis Test Positive Height (Feet): 5 Height (Inches): 9.00 Weight (Pounds): 297 Objective Physical Exam General Appearance: well appearing, nad, obese Head: normocephalic ++ ogt Resp: normal breath sounds bipap++ Cardiovascular: normal rate Gastrointestinal: normal inspection, non tender, soft, normal bowel sounds, non -distended Msk: normal inspection, back normal Skin: normal inspection, normal color, no rash, warm/dry, palpation normal, well hydrated Lymphatic: normal inspection, no adenopathy Triny Hutton NP Jan 03, 2019 21:06
--- NOTE | 2019-01-03 21:38 | General Progress Note ---
Assessment/Plan Problem List: (1) Opioid dependence ICD Codes: F11.20 - Opioid dependence, uncomplicated SNOMED: 05526293 (2) Altered level of consciousness ICD Codes: R40.4 - Transient alteration of awareness SNOMED: 7733306 (3) Back pain ICD Codes: M54.9 - Dorsalgia, unspecified SNOMED: 868561795 (4) Opiate dependence ICD Codes: F11.20 - Opioid dependence, uncomplicated SNOMED: 26188100 (5) Depression ICD Codes: F32.9 - Major depressive disorder, single episode, unspecified SNOMED: 75721449 (6) Peripheral edema ICD Codes: R60.9 - Edema, unspecified SNOMED: 800827940 (7) Leg pain ICD Codes: M79.606 - Pain in leg, unspecified SNOMED: 71784702 (8) Headache ICD Codes: R51 - Headache SNOMED: 26045665 (9) COPD exacerbation ICD Codes: J44.1 - Chronic obstructive pulmonary disease with (acute) exacerbation SNOMED: 403340597 (10) Psychosis ICD Codes: F29 - Unsp psychosis not due to a substance or known physiol cond SNOMED: 56481929 (11) Respiratory failure ICD Codes: J96.90 - Respiratory failure, unspecified, unspecified whether with hypoxia or hypercapnia SNOMED: 010271686 (12) Salicylate overdose ICD Codes: T39.091A - Poisoning by salicylates, accidental (unintentional), initial encounter SNOMED: 546718150, 7694918 (13) Asthma ICD Codes: J45.909 - Unspecified asthma, uncomplicated SNOMED: 215021126, 4215714 (14) Anemia ICD Codes: D64.9 - Anemia, unspecified SNOMED: 355035664 Status: stable, progressing Assessment/Plan: salicylate overdose intermittent bipap respiratory condition is improving poor respiratory reserve psych patient Subjective ROS Limited/Unobtainable: Yes Allergies: Coded Allergies: No Known Allergies (Unverified , 11/07/13) Objective Last 24 Hour Vital Signs Date Time Temp Pulse Resp B/P (MAP) Pulse Ox O2 Delivery O2 Flow Rate FiO2 01/03/19 19:55 109 25 96 Venturi Mask 8.0 40 01/03/19 19:55 109 25 96 Venturi Mask 10.0 45 01/03/19 19:49 97 Venturi Mask 10.0 45 01/03/19 16:00 40 01/03/19 16:00 126 01/03/19 16:00 Bi-pap 01/03/19 16:00 98.0 120 33 148/74 (98) 93 01/03/19 15:00 114 32 142/73 (96) 100 01/03/19 14:56 99 Nasal Cannula 2.0 28 01/03/19 14:55 122 32 97 2.0 28 01/03/19 14:00 107 37 125/111 (116) 99 01/03/19 13:00 110 33 128/50 (76) 96 01/03/19 12:00 97.9 127 28 147/132 (137) 95 01/03/19 12:00 45 01/03/19 12:00 132 01/03/19 12:00 Bi-pap 01/03/19 11:52 120 33 97 2.0 28 01/03/19 11:00 118 35 65/51 (56) 99 01/03/19 10:00 110 32 143/63 (89) 96 01/03/19 09:00 122 34 132/60 (84) 99 01/03/19 08:00 45 01/03/19 08:00 Bi-pap 01/03/19 08:00 98.0 120 27 139/59 (85) 98 01/03/19 08:00 122 01/03/19 07:58 100 Nasal Cannula 2.0 28 01/03/19 07:36 110 29 93 2.0 28 01/03/19 07:00 110 30 151/82 (105) 94 01/03/19 06:00 115 33 134/96 (109) 99 01/03/19 05:03 111 33 100 Venturi Mask 10.0 45 01/03/19 05:00 45 01/03/19 05:00 103 25 124/80 (95) 99 01/03/19 04:00 55 01/03/19 04:00 99.6 107 23 155/79 (104) 99 01/03/19 04:00 106 01/03/19 04:00 Bi-pap 01/03/19 03:28 113 30 98 Full Face 30 115 26 99 Bi-Pap 30 01/03/19 03:00 109 29 141/82 (101) 97 01/03/19 02:00 107 28 147/82 (103) 98 01/03/19 01:23 91 29 98 Full Face 30 Bi-Pap 01/03/19 01:00 135 39 135/86 (102) 97 01/03/19 00:00 99.0 98 30 152/87 (108) 97 01/03/19 00:00 Bi-pap 01/03/19 00:00 30 01/03/19 00:00 97 01/02/19 23:22 102 36 100 Full Face 30 104 29 100 Bi-Pap 30 01/02/19 23:00 116 31 147/76 (99) 01/02/19 22:00 117 35 143/70 (94) 74 Intake and Output 01/02/19 01/03/19 19:00 07:00 Intake Total 405 ml 480 ml Output Total 1465 ml 400 ml Balance -1060 ml 80 ml IV Total 405 ml 480 ml Output Urine Total 1465 ml 400 ml # Bowel Movements 2 Laboratory Tests 01/03/19 08:25: White Blood Count 15.3H, Red Blood Count 4.05L, Hemoglobin 12.9, Hematocrit 36.7L, Mean Corpuscular Volume 91, Mean Corpuscular Hemoglobin 31.8H, Mean Corpuscular Hemoglobin Concent 35.0, Red Cell Distribution Width 12.7, Platelet Count 232, Mean Platelet Volume 4.9L, Neutrophils (%) (Auto) 73.0, Lymphocytes ( %) (Auto) 22.1, Monocytes (%) (Auto) 3.6, Eosinophils (%) (Auto) 0.3, Basophils (%) (Auto) 1.1, Sodium Level 145, Potassium Level 2.9L, Chloride Level 106, Carbon Dioxide Level 29, Anion Gap 10, Blood Urea Nitrogen 10, Creatinine 1.0, Estimat Glomerular Filtration Rate > 60, Glucose Level 106, Calcium Level 8.9 01/03/19 08:30: Arterial Blood pH 7.409, Arterial Blood Partial Pressure CO2 38.9, Arterial Blood Partial Pressure O2 74.2L, Arterial Blood HCO3 24.0, Arterial Blood Oxygen Saturation 94.4L, Arterial Blood Base Excess -0.4, Luis Test Positive Height (Feet): 5 Height (Inches): 9.00 Weight (Pounds): 297 General Appearance: lethargic, confused Abdomen: soft Jasmine Joe MD Jan 03, 2019 21:38
[2019-01-03] MEDS: D5 1/2NS 1,000 ML IV SCH (22:23)
--- NOTE | 2019-01-03 23:35 | NUR ---
NURSE NOTES: Patient was agitated and trying to remove venturi mask and out of bed. Haldol was given as ordered. Will continue plan of care.
[2019-01-04] VITALS: BP 144/55
--- NOTE | 2019-01-04 00:05 | NUR ---
NURSE NOTES: Called Dr. Canchola and left message for if further orders.
--- NOTE | 2019-01-04 01:02 | NUR ---
NURSE NOTES: Talked with Dr. Canchola. Give ativan 1mg IV x1 as needed. Patient is calm and asleep now. Hold it for now. Will continue plan of care.
[2019-01-04] MEDS: Acetylcysteine 20% Soln 4ml HHN SCH ×6 (03:27→23:15)
[2019-01-04] MEDS: Albuterol/Ipratropium 3ml neb HHN SCH ×6 (03:27→23:14)
[2019-01-04 04:00] VITALS: BP 158/88
[2019-01-04 04:56] LABS: BASOPHILS % (AUTO) 0.6 % (0.0-2.0); EOSINOPHILS % (AUTO) 0.4 % (0.0-3.0); HEMATOCRIT 36.9 % (37.0-47.0); LYMPHOCYTES % (AUTO) 26.2 % (20.0-45.0); MEAN CORPUSCULAR VOLUME 96 FL (80-99); MONOCYTES % (AUTO) 8.3 % (1.0-10.0); NEUTROPHILS % (AUTO) 64.6 % (45.0-75.0); PLATELET COUNT 246 K/UL (150-450); RED BLOOD COUNT 3.87 M/UL (4.20-5.40); RED CELL DISTRIBUTION WIDTH 13.4 % (11.6-14.8); WHITE BLOOD COUNT 12.6 K/UL (4.8-10.8)
[2019-01-04 05:33] LABS: ALANINE AMINOTRANSFERASE 45 U/L (12-78); ALBUMIN 2.8 G/DL (3.4-5.0); ALBUMIN/GLOBULIN RATIO 0.8 (1.0-2.7); ALKALINE PHOSPHATASE 65 U/L (46-116); ANION GAP 9 mmol/L (5-15); ASPARTATE AMINO TRANSFERASE 18 U/L (15-37); BILIRUBIN,TOTAL 0.7 MG/DL (0.2-1.0); BLOOD UREA NITROGEN 7 mg/dL (7-18); CALCIUM 8.8 MG/DL (8.5-10.1); CARBON DIOXIDE 29 MMOL/L (21-32); CHLORIDE 108 MMOL/L (98-107); CREATININE 0.9 MG/DL (0.55-1.30); PHOSPHORUS 3.6 MG/DL (2.5-4.9); POTASSIUM 3.3 MMOL/L (3.5-5.1); SODIUM 146 MMOL/L (136-145)
[2019-01-04] MEDS: NovoLOG Insulin Flexpen SUBQ SCH ×4 (05:43→18:00)
--- NOTE | 2019-01-04 07:10 | NUR ---
HAND-OFF: Report given to CLARENCE Najera. Endorsed plan of care.
--- NOTE | 2019-01-04 07:15 | NUR ---
NURSE NOTES: Received bedside report from Noble LIMA. Pt. in bed, sleeping but arousable. No sign of distress. On Bipap at present 14/10. No grimacing noted. F/C in placed patent/intact draining yellow colored urine. IV at left wrist #[id number]. in placed patent/intact running D5 1/2 NS at 40cc/hr. Bed in low position, locked. Call light within reach. Will cont. to monitor.
[2019-01-04 08:00] VITALS: BP 117/69
[2019-01-04] MEDS: Pantoprazole Inj IVP SCH ×2 (09:27→20:37)
[2019-01-04] MEDS: Lactulose 20gm/30ml UDC ORAL SCH ×3 (09:27→18:00)
[2019-01-04] MEDS: OLANZapine 10mg tab ORAL SCH ×2 (09:27→18:00)
[2019-01-04] MEDS: Solu-MEDROL 40mg Inj IVP SCH (09:28)
[2019-01-04] MEDS: Docusate 100mg cap ORAL SCH ×2 (09:28→20:39)
--- NOTE | 2019-01-04 10:30 | NUR ---
NURSE NOTES: Pt. accidentally pulled out IV line. RN tried twice. Called Dr. Joe for possible PICC line due to pt. hard stick. He told RN to ask Dr. Aisha Martinez. Will cont. to monitor.
--- NOTE | 2019-01-04 11:10 | NUR ---
RD ASSESSMENT & RECOMMENDATIONS SEE CARE ACTIVITY FOR COMPLETE ASSESSMENT DAILY ESTIMATED NEEDS: Needs based on Pulmonary, morbidly obese 11-14 kcal/ kg actual body wt (143kg) kcals/kg 2580-4620 total kcals 1.5-1.8 IBW (66kg) g protein/kg 99-119 g total protein Fluid per MD NUTRITION DIAGNOSIS: Swallowing difficulty R/T respiratory status as evidenced by orally intubated and sedated, now w/p extubation, NPO, pending LENS MOLDER eval. PO DIET RECOMMENDATIONS: POST EXTUBATION-> CCHO LOW, CARDIAC/ texture per LENS MOLDER or as tolerated ADDITIONAL RECOMMENDATIONS: * CALIBRATED bedscale wt for accurate CBW * Monitor lytes daily, replete as needed * Monitor BGs closely while on Solumedrol/ need for carb control diet * LENS MOLDER eval prior to oral diet (s/p extubation)
--- NOTE | 2019-01-04 11:13 | NUR ---
NURSE NOTES: tRIED TO CALL [address] AT [phone] TO INFORMED DISCHARGE BUT SHES JUST HANHING UP THE PHONE CALLED THREE TIMES. SIGIFREDO NAVARROJESSICA [phone]. Addendum: 01/04/19 at 1122 by VALERIY DYER Amendment: wrong patient
--- NOTE | 2019-01-04 11:35 | Infectious Diseases Prog Note ---
Assessment/Plan Assessment/Plan IMPRESSION: Sepsis or systemic inflammatory response syndrome, COPD, Hypercapnic respiratory failure, s Salicylate toxicity, Morbid obesity. Leukocytosis improving Positive Urine culture, colonization RECOMMENDATION: Observe off antibiotic Taper steroids. Subjective ROS Limited/Unobtainable: Yes Constitutional: Reports: fatigue, other - transferred from ICU to step down unit Respiratory: Reports: no symptoms Psychiatric: Reports: other - off of restraint Allergies: Coded Allergies: No Known Allergies (Unverified , 11/07/13) Objective Vital Signs Last 24 Hour Vital Signs Date Time Temp Pulse Resp B/P (MAP) Pulse Ox O2 Delivery O2 Flow Rate FiO2 01/04/19 11:15 88 18 99 Venturi Mask 4.0 30 80 18 98 01/04/19 08:00 98.7 78 24 117/69 (85) 95 01/04/19 08:00 30 01/04/19 08:00 Bi-pap 01/04/19 07:48 88 01/04/19 07:47 82 22 98 Bi-Pap 30 72 20 98 01/04/19 07:47 98 Bi-Pap 30 01/04/19 07:00 75 20 98 Full Face 30 01/04/19 05:13 117 20 97 Full Face 30 01/04/19 04:00 30 01/04/19 04:00 Bi-pap 01/04/19 04:00 98.2 80 18 158/88 (111) 97 01/04/19 04:00 84 01/04/19 03:27 80 20 98 Bi-Pap 30 76 20 97 01/04/19 03:20 111 20 94 Full Face 30 01/04/19 01:10 95 24 99 Full Face 30 01/04/19 00:00 Bi-pap 01/04/19 00:00 98.0 96 27 144/55 (84) 94 01/04/19 00:00 104 01/04/19 00:00 40 01/03/19 23:28 119 22 98 Full Face 30 01/03/19 20:00 100 01/03/19 20:00 40 01/03/19 20:00 98.2 111 34 141/117 (125) 94 01/03/19 20:00 Bi-pap 01/03/19 19:55 109 25 96 Venturi Mask 8.0 40 01/03/19 19:55 109 25 96 Venturi Mask 10.0 45 01/03/19 19:49 97 Venturi Mask 10.0 45 01/03/19 16:00 40 01/03/19 16:00 126 01/03/19 16:00 Bi-pap 01/03/19 16:00 98.0 120 33 148/74 (98) 93 01/03/19 15:00 114 32 142/73 (96) 100 01/03/19 14:56 99 Nasal Cannula 2.0 28 01/03/19 14:55 122 32 97 2.0 28 01/03/19 14:00 107 37 125/111 (116) 99 01/03/19 13:00 110 33 128/50 (76) 96 01/03/19 12:00 97.9 127 28 147/132 (137) 95 01/03/19 12:00 45 01/03/19 12:00 132 01/03/19 12:00 Bi-pap 01/03/19 11:52 120 33 97 2.0 28 Height (Feet): 5 Height (Inches): 9.00 Weight (Pounds): 295 General Appearance: other - obese Respiratory/Chest: lungs clear Cardiovascular: tachycardia Abdomen: soft, non tender Extremities: no edema Neurologic/Psychiatric: alert, responsive Laboratory Tests Test 01/04/19 03:25 White Blood Count 12.6 K/UL (4.8-10.8) H Red Blood Count 3.87 M/UL (4.20-5.40) L Hemoglobin 12.0 G/DL (12.0-16.0) Hematocrit 36.9 % (37.0-47.0) L Mean Corpuscular Volume 96 FL (80-99) Mean Corpuscular Hemoglobin 31.1 PG (27.0-31.0) H Mean Corpuscular Hemoglobin Concent 32.5 G/DL (32.0-36.0) Red Cell Distribution Width 13.4 % (11.6-14.8) Platelet Count 246 K/UL (150-450) Mean Platelet Volume 5.4 FL (6.5-10.1) L Neutrophils (%) (Auto) 64.6 % (45.0-75.0) Lymphocytes (%) (Auto) 26.2 % (20.0-45.0) Monocytes (%) (Auto) 8.3 % (1.0-10.0) Eosinophils (%) (Auto) 0.4 % (0.0-3.0) Basophils (%) (Auto) 0.6 % (0.0-2.0) Sodium Level 146 MMOL/L (136-145) H Potassium Level 3.3 MMOL/L (3.5-5.1) L Chloride Level 108 MMOL/L (98-107) H Carbon Dioxide Level 29 MMOL/L (21-32) Anion Gap 9 mmol/L (5-15) Blood Urea Nitrogen 7 mg/dL (7-18) Creatinine 0.9 MG/DL (0.55-1.30) Estimat Glomerular Filtration Rate > 60 mL/min (>60) Glucose Level 96 MG/DL (74-106) Uric Acid 4.2 MG/DL (2.6-7.2) Calcium Level 8.8 MG/DL (8.5-10.1) Phosphorus Level 3.6 MG/DL (2.5-4.9) Magnesium Level 2.1 MG/DL (1.8-2.4) Total Bilirubin 0.7 MG/DL (0.2-1.0) Aspartate Amino Transf (AST/SGOT) 18 U/L (15-37) Alanine Aminotransferase (ALT/SGPT) 45 U/L (12-78) Alkaline Phosphatase 65 U/L (46-116) C-Reactive Protein, Quantitative 6.0 mg/dL (0.00-0.90) H Pro-B-Type Natriuretic Peptide 71 pg/mL (0-125) Total Protein 6.3 G/DL (6.4-8.2) L Albumin 2.8 G/DL (3.4-5.0) L Globulin 3.5 g/dL Albumin/Globulin Ratio 0.8 (1.0-2.7) L Current Medications Medications (Trade) Dose Ordered Sig/Amaya Route PRN Reason Start Time Stop Time Status Last Admin Dose Admin Acetaminophen (Tylenol) 650 mg Q4H PRN ORAL FOR TEMP >100.5 01/03/19 17:30 01/22/19 17:29 Acetylcysteine (Mucomyst) 200 mg Q4HRT HHN 01/03/19 19:00 01/23/19 12:59 01/04/19 11:11 Albuterol/ Ipratropium (Albuterol/ Ipratropium) 3 ml Q4HRT HHN 01/03/19 19:00 01/06/19 06:59 01/04/19 11:11 Clonidine HCl (Catapres Tab) 0.1 mg Q4H PRN ORAL bp over 165 syst 01/03/19 17:30 01/29/19 17:29 Dextrose (Dextrose 50%) 25 ml Q30M PRN IV Hypoglycemia 01/03/19 17:30 01/20/19 16:59 Dextrose (Dextrose 50%) 50 ml Q30M PRN IV Hypoglycemia 01/03/19 17:30 01/20/19 16:59 Dextrose/Sodium Chloride 1,000 ml @ 40 mls/hr Q24H IV 01/03/19 21:45 02/02/19 21:44 01/03/19 22:23 Diphenhydramine HCl (Benadryl) 50 mg Q6H PRN IM Restlessness 01/03/19 17:00 01/31/19 16:59 Docusate Sodium (Colace) 100 mg Q12HR ORAL 01/03/19 21:00 01/27/19 20:59 01/04/19 09:28 Haloperidol Lactate (Haldol) 5 mg Q6H PRN IM Agitation 01/03/19 17:30 01/23/19 17:29 01/03/19 23:32 Insulin Aspart (NovoLOG) EVERY 6 HOURS SUBQ 01/03/19 18:00 01/20/19 17:59 Lactulose (Cephulac) 20 gm THREE TIMES A DAY ORAL 01/03/19 18:00 01/30/19 17:59 01/04/19 09:27 Methylprednisolone Sodium Succinate (Solu-MEDROL) 30 mg DAILY IVP 01/04/19 09:00 01/28/19 08:59 01/04/19 09:28 Olanzapine (ZyPREXA) 10 mg BID ORAL 01/03/19 18:00 01/31/19 18:44 01/04/19 09:27 Pantoprazole (Protonix) 40 mg EVERY 12 HOURS IVP 01/03/19 21:00 01/21/19 10:59 01/04/19 09:27 Polyethylene Glycol (Miralax) 17 gm BEDTIME ORAL 9/2/19 21:00 01/30/19 20:59 Polyethylene Glycol (Miralax) 17 gm DAILYPRN PRN ORAL Constipation 01/03/19 17:30 02/02/19 17:29 Nikos Martinez MD Jan 04, 2019 11:35
--- NOTE | 2019-01-04 11:48 | NUR ---
ST NOTES: REFERRED FOR SWALLOW EVALUATION BY DR. CARRILLO ON 01/03/19: ACUTE ISSUES: RESP FAILURE INTUBATED 12/21 TO 12/29 (8 DAYS) NOW ON VENTURI MASK 4.0 LITERS FI02 30% RR , INFILTRATES IN LUNGS, COPD EXACERBATION, ANXIETY, ASTHMA, SALICYLATE OD OPIOID DEPENDENCE, ALOC. ON PROTONIX (GERD) AND ZYPREXA. H/O MORBID OBESITY, MULTIPLE ER ADMITS FOR PSYCH RELATED - SCHIZOPHRENIA ON ZYPREXA (SUICIDE INTENT, HEARING VOICES AND OTHER PROBLEMS LIKE VIRAL PHARYNGITIS SEE PSYCH NOTE). NO POLST/AD REGARDING LT TUBE FEEDINGS BUT HAS TF ORDER 12/22 FOR GLUCERNA. NOW NPO AND WANTS TO EAT. DENIES DYSPHAGIA IN THE PAST. ALERT AND ABLE TO EXPRESS NEEDS. INITIAL IMPRESSIONS: MILD DYSPHAGIA RELATED SOB AND INCOORDINATION OF BREATHING AND SWALLOWING (COPD EXACERBATION). S/S OF INCREASED SOB AND RR WITH SEQUENTIAL SIPS OF WATER VIA STRAW (3 OZ [employer] SWALLOW PROTOCOL), COULD NOT DRINK CONTINUOUSLY AND NEEDED TO TAKE A BREATH AFTER 3-4 SIPS, NO OVERT ASPIRATION GIVEN TSP PUREED TSP GROSSLY FUNCTIONAL SWALLOW GIVEN MASTICATED SOLID (1/2 CRACKER) SLOWER CHEWING SINCE SHE NEEDS TO BREATHE (SLIGHT INCREASE IN RR 24 AT TIMES) BUT GROSSLY FUNCTIONAL AND SAYS THAT SHE IS TIRED, NO OVERT ASPIRATION. ? SILENT ASPIRATION RISK (NO NEURO DEFICIT) BUT ASPIRATION RISK MOSTLY RELATED TO RESP ISSUES. RECOMMENDATIONS: CONSIDER MOD BARIUM SWALLOW STUDY AND COMPLETE EAT 10 QUESTIONNAIRE TO FURTHER ASSESS SWALLOW, DETERMINE SILENT ASP RISK, AND ATTEMPT TRIAL TX TECHNIQUES IF NEEDS. IF PO GIVEN FOR QUALITY OF LIFE PURPOSES (PT WANTS TO EAT), INITIATE SOFT CHEW DIET AND THIN LIQUIDS (PT DISLIKES CHOPPED DIET BUT RN CAN CUT HER FOOD) WITH SUPERVISION OF MEALS AND WATCH RR (NOT ABOVE 24) MUST REST AND EAT SLOWLY. PER RD, CCHO-LOW AND CARDIAC TYPE DIET. SKILLED DYSPHAGIA MANAGEMENT AND TX IF NEEDS EDUCATED/TRAINED RN IN POSTED ASPIRATION/REFLUX PRECAUTIONS. FOOD) AND THIN LIQUIDS WITH POSTED ASPIRATION AND REFLUX PRECAUTIONS. GROSSLY FUNCTIONAL SWALLOW WITH PUREED TSP W/ OVERT ASPIRATION
[2019-01-04 12:00] VITALS: BP 122/71
--- NOTE | 2019-01-04 12:00 | NUR ---
NURSE NOTES: Called Dr. Aisha Martinez and left a message. Awaiting for response.
--- NOTE | 2019-01-04 12:51 | GI Progress Note ---
Assessment/Plan Problems: (1) Anemia ICD Codes: D64.9 - Anemia, unspecified SNOMED: 871437698 (2) Salicylate overdose ICD Codes: T39.091A - Poisoning by salicylates, accidental (unintentional), initial encounter SNOMED: 164444465, 0631124 (3) Respiratory failure ICD Codes: J96.90 - Respiratory failure, unspecified, unspecified whether with hypoxia or hypercapnia SNOMED: 915772614 (4) Suicidal intent ICD Codes: R45.851 - Suicidal ideations SNOMED: 005974996 Status: progressing Status Narrative Discussed with Dr. Saldana. Assessment/Plan No plans for GI procedures at this time, stable H&H on NC Electrolyte correction OB stool r/o GI bleed monitor H&H, prn transfusions bowel regimen >> colace, miralax and lactulose ppi adv diet as tolerated fu labs The patient was seen and examined at bedside and all new and available data was reviewed in the patients chart. I agree with the above findings, impression and plan. (Patient seen earlier today. Signature stamp does not reflect patient encounter time.). - Vladimir Saldana MD Subjective Subjective limited Objective Last 24 Hour Vital Signs Date Time Temp Pulse Resp B/P (MAP) Pulse Ox O2 Delivery O2 Flow Rate FiO2 01/04/19 11:15 88 18 99 Venturi Mask 4.0 30 80 18 98 01/04/19 08:00 98.7 78 24 117/69 (85) 95 01/04/19 08:00 30 01/04/19 08:00 Bi-pap 01/04/19 07:48 88 01/04/19 07:47 82 22 98 Bi-Pap 30 72 20 98 01/04/19 07:47 98 Bi-Pap 30 01/04/19 07:00 75 20 98 Full Face 30 01/04/19 05:13 117 20 97 Full Face 30 01/04/19 04:00 30 01/04/19 04:00 Bi-pap 01/04/19 04:00 98.2 80 18 158/88 (111) 97 01/04/19 04:00 84 01/04/19 03:27 80 20 98 Bi-Pap 30 76 20 97 01/04/19 03:20 111 20 94 Full Face 30 01/04/19 01:10 95 24 99 Full Face 30 01/04/19 00:00 Bi-pap 01/04/19 00:00 98.0 96 27 144/55 (84) 94 01/04/19 00:00 104 01/04/19 00:00 40 01/03/19 23:28 119 22 98 Full Face 30 01/03/19 20:00 100 01/03/19 20:00 40 01/03/19 20:00 98.2 111 34 141/117 (125) 94 01/03/19 20:00 Bi-pap 01/03/19 19:55 109 25 96 Venturi Mask 8.0 40 01/03/19 19:55 109 25 96 Venturi Mask 10.0 45 01/03/19 19:49 97 Venturi Mask 10.0 45 01/03/19 16:00 40 01/03/19 16:00 126 01/03/19 16:00 Bi-pap 01/03/19 16:00 98.0 120 33 148/74 (98) 93 01/03/19 15:00 114 32 142/73 (96) 100 01/03/19 14:56 99 Nasal Cannula 2.0 28 01/03/19 14:55 122 32 97 2.0 28 01/03/19 14:00 107 37 125/111 (116) 99 01/03/19 13:00 110 33 128/50 (76) 96 Intake and Output 01/03/19 01/04/19 19:00 07:00 Intake Total 360 ml 160 ml Output Total 300 ml 600 ml Balance 60 ml -440 ml IV Total 360 ml 160 ml Output Urine Total 300 ml 600 ml # Bowel Movements 3 Laboratory Tests Test 01/04/19 03:25 White Blood Count 12.6 K/UL (4.8-10.8) H Red Blood Count 3.87 M/UL (4.20-5.40) L Hemoglobin 12.0 G/DL (12.0-16.0) Hematocrit 36.9 % (37.0-47.0) L Mean Corpuscular Volume 96 FL (80-99) Mean Corpuscular Hemoglobin 31.1 PG (27.0-31.0) H Mean Corpuscular Hemoglobin Concent 32.5 G/DL (32.0-36.0) Red Cell Distribution Width 13.4 % (11.6-14.8) Platelet Count 246 K/UL (150-450) Mean Platelet Volume 5.4 FL (6.5-10.1) L Neutrophils (%) (Auto) 64.6 % (45.0-75.0) Lymphocytes (%) (Auto) 26.2 % (20.0-45.0) Monocytes (%) (Auto) 8.3 % (1.0-10.0) Eosinophils (%) (Auto) 0.4 % (0.0-3.0) Basophils (%) (Auto) 0.6 % (0.0-2.0) Sodium Level 146 MMOL/L (136-145) H Potassium Level 3.3 MMOL/L (3.5-5.1) L Chloride Level 108 MMOL/L (98-107) H Carbon Dioxide Level 29 MMOL/L (21-32) Anion Gap 9 mmol/L (5-15) Blood Urea Nitrogen 7 mg/dL (7-18) Creatinine 0.9 MG/DL (0.55-1.30) Estimat Glomerular Filtration Rate > 60 mL/min (>60) Glucose Level 96 MG/DL (74-106) Uric Acid 4.2 MG/DL (2.6-7.2) Calcium Level 8.8 MG/DL (8.5-10.1) Phosphorus Level 3.6 MG/DL (2.5-4.9) Magnesium Level 2.1 MG/DL (1.8-2.4) Total Bilirubin 0.7 MG/DL (0.2-1.0) Aspartate Amino Transf (AST/SGOT) 18 U/L (15-37) Alanine Aminotransferase (ALT/SGPT) 45 U/L (12-78) Alkaline Phosphatase 65 U/L (46-116) C-Reactive Protein, Quantitative 6.0 mg/dL (0.00-0.90) H Pro-B-Type Natriuretic Peptide 71 pg/mL (0-125) Total Protein 6.3 G/DL (6.4-8.2) L Albumin 2.8 G/DL (3.4-5.0) L Globulin 3.5 g/dL Albumin/Globulin Ratio 0.8 (1.0-2.7) L Height (Feet): 5 Height (Inches): 9.00 Weight (Pounds): 295 General Appearance: WD/WN, no apparent distress, alert, morbidly obese Cardiovascular: normal rate Respiratory/Chest: normal breath sounds, no respiratory distress Abdominal Exam: normal bowel sounds, non tender, soft Extremities: non-tender Marc Chaudhary NP Jan 04, 2019 12:51
--- NOTE | 2019-01-04 13:01 | Nephrology Progress Note ---
Assessment/Plan Problem List: (1) Salicylate overdose (2) Psychosis (3) Anemia (4) Obesity (5) Hypokalemia (6) Rhabdomyolysis Assessment: high CPK Assessment HypoKalemia Mild Anemia s/p Acidosis resolved Respiratory failure Salicylate overdose Psychosis Asthma Obesity Plan Plan: continue resp. support hold Norvasc PRN clonidin extubated 12/29 K , Mag , Phos supplement as needed no IV fluids taper steroids as possible IV Protonix Resp management per Dr hurt monitor renal parameters Urine studies Subjective ROS Limited/Unobtainable: No Objective Objective Last 24 Hour Vital Signs Date Time Temp Pulse Resp B/P (MAP) Pulse Ox O2 Delivery O2 Flow Rate FiO2 01/04/19 11:15 88 18 99 Venturi Mask 4.0 30 80 18 98 01/04/19 08:00 98.7 78 24 117/69 (85) 95 01/04/19 08:00 30 01/04/19 08:00 Bi-pap 01/04/19 07:48 88 01/04/19 07:47 82 22 98 Bi-Pap 30 72 20 98 01/04/19 07:47 98 Bi-Pap 30 01/04/19 07:00 75 20 98 Full Face 30 01/04/19 05:13 117 20 97 Full Face 30 01/04/19 04:00 30 01/04/19 04:00 Bi-pap 01/04/19 04:00 98.2 80 18 158/88 (111) 97 01/04/19 04:00 84 01/04/19 03:27 80 20 98 Bi-Pap 30 76 20 97 01/04/19 03:20 111 20 94 Full Face 30 01/04/19 01:10 95 24 99 Full Face 30 01/04/19 00:00 Bi-pap 01/04/19 00:00 98.0 96 27 144/55 (84) 94 01/04/19 00:00 104 01/04/19 00:00 40 01/03/19 23:28 119 22 98 Full Face 30 01/03/19 20:00 100 01/03/19 20:00 40 01/03/19 20:00 98.2 111 34 141/117 (125) 94 01/03/19 20:00 Bi-pap 01/03/19 19:55 109 25 96 Venturi Mask 8.0 40 01/03/19 19:55 109 25 96 Venturi Mask 10.0 45 01/03/19 19:49 97 Venturi Mask 10.0 45 01/03/19 16:00 40 01/03/19 16:00 126 01/03/19 16:00 Bi-pap 01/03/19 16:00 98.0 120 33 148/74 (98) 93 01/03/19 15:00 114 32 142/73 (96) 100 01/03/19 14:56 99 Nasal Cannula 2.0 28 01/03/19 14:55 122 32 97 2.0 28 01/03/19 14:00 107 37 125/111 (116) 99 Intake and Output 01/03/19 01/04/19 19:00 07:00 Intake Total 360 ml 160 ml Output Total 300 ml 600 ml Balance 60 ml -440 ml IV Total 360 ml 160 ml Output Urine Total 300 ml 600 ml # Bowel Movements 3 Laboratory Tests 01/04/19 03:25: White Blood Count 12.6H, Red Blood Count 3.87L, Hemoglobin 12.0, Hematocrit 36.9L, Mean Corpuscular Volume 96, Mean Corpuscular Hemoglobin 31.1H, Mean Corpuscular Hemoglobin Concent 32.5, Red Cell Distribution Width 13.4, Platelet Count 246, Mean Platelet Volume 5.4L, Neutrophils (%) (Auto) 64.6, Lymphocytes ( %) (Auto) 26.2, Monocytes (%) (Auto) 8.3, Eosinophils (%) (Auto) 0.4, Basophils (%) (Auto) 0.6, Sodium Level 146H, Potassium Level 3.3L, Chloride Level 108H, Carbon Dioxide Level 29, Anion Gap 9, Blood Urea Nitrogen 7, Creatinine 0.9, Estimat Glomerular Filtration Rate > 60, Glucose Level 96, Uric Acid 4.2, Calcium Level 8.8, Phosphorus Level 3.6, Magnesium Level 2.1, Total Bilirubin 0.7, Aspartate Amino Transf (AST/SGOT) 18, Alanine Aminotransferase (ALT/SGPT) 45, Alkaline Phosphatase 65, C-Reactive Protein, Quantitative 6.0H, Pro-B-Type Natriuretic Peptide 71, Total Protein 6.3L, Albumin 2.8L, Globulin 3.5, Albumin/ Globulin Ratio 0.8L Height (Feet): 5 Height (Inches): 9.00 Weight (Pounds): 295 General Appearance: no apparent distress Cardiovascular: tachycardia - irreg Respiratory/Chest: decreased breath sounds Abdomen: other - obese Jerzy Boudreaux MD Jan 04, 2019 13:01
--- NOTE | 2019-01-04 13:22 | NUR ---
CASE MANAGEMENT: REVIEW 01/04/2019 SI:SEPSIS. PNA. T 98.7 HR 78 RR 24 B/P 117/69 SATS 95% ON BIPAP FIO2 30 WBC 12.6 NA 146 K 3.3 CL 108 IS:INSULIN ASPART SUBQ Q6H PROTONIX IV Q12H K PHOS IV X1 FENTANYL IV Q24H CEFTRIAXONE IV Q24H SOLU MEDROL IV Q6H IVF @ 40 mL/HR DOXYCYCLINE NG Q12H SDU
--- NOTE | 2019-01-04 13:30 | NUR ---
NURSE NOTES: Called Dr. Suero regarding pt. no IV line access at present and informed him that pt. just consumed 1/2 of KcL 10meq of 1 bag. And 2nd. bag unable to administer. Awaiting for response.
--- NOTE | 2019-01-04 13:33 | Hematology/Onc Progress Note ---
Assessment/Plan Assessment/Plan Assessment and Recs: # Leukocytosis is likely due to steriods --> monitor steriod use --> accuchecks qac and qhs --> insulin as needed prn --> on ctx/doxy per id prn --> wbc 12-->15->17-->18-->14.3-->14-->15.2->12.6 --> smear reviewed and no blasts noted # Anemia of iron deficiency with decreased ferritin --> No evidence of hemolysis is noted, peripheral smear has been reviewed. --> Hgb goal >7. Transfuse prn. --> Iron has been ordered x 1 dose given stable hgb --> Medications have been reviewed --> low threshold for gi evaluation in case has occult + --> hgb trend 11.6-->12.2-->12.1 # Salicylate overdose now improved --> Medical management for salicylate overdose --> Sodium bicarbonate --> IVF started, as per renal --> now improved # Electrolyte correction --> replace k prn basis # Resp failure --> 12/29 extubated on nc --> bipap The timing of this note does not necessarily reflect the time of the patient was seen. GREATLY APPRECIATE CONSULTATION. Subjective Constitutional: Denies: no symptoms, chills, fever, malaise, weakness, other HEENT: Denies: no symptoms, eye pain, blurred vision, tearing, double vision, ear pain, ear discharge, nose pain, nose congestion, throat pain, throat swelling, mouth pain, mouth swelling, other Cardiovascular: Denies: no symptoms, chest pain, edema, irregular heart rate, lightheadedness, palpitations, syncope, other Genitourinary: Denies: no symptoms, burning, discharge, frequency, flank pain, hematuria, incontinence, pain, urgency, other Neurologic/Psychiatric: Denies: no symptoms, anxiety, depressed, emotional problems, headache, numbness, paresthesia, pre-existing deficit, seizure, tingling, tremors, weakness, other Endocrine: Denies: no symptoms, excessive sweating, flushing, intolerance to cold, intolerance to heat, increased hunger, increased thirst, increased urine, unexplained weight gain, unexplained weight loss, other Hematologic/Lymphatic: Denies: no symptoms, anemia, easy bleeding, easy bruising, adenopathy, other Allergies: Coded Allergies: No Known Allergies (Unverified , 11/07/13) Subjective 12/23: no events, no bleeding reported, tf held for potential extubation 12/24: icu, trach, agitated and confused, labs reviewed, abx, fentanyl 12/26: no bleeding, no chills, still on abx, fentayl, labs reviewed 12/27: dox and ctx, no bleeding sputum cultures reviewed 12/29: turned, repositioned, remains npo, labs noted 12/30: icu, restless, on abx, no signs of distress, labs reviewed, no fever 12/31: remain in icu, agitated, on seroquel, on restraints, labs reviewed 01/01: remains agitated and restless, on bipap in the icu 01/03: no bleeding, no f, c, no night sweats, no major events, labs reviewed Objective Objective Current Medications Medications (Trade) Dose Ordered Sig/Amaya Route PRN Reason Start Time Stop Time Status Last Admin Dose Admin Acetaminophen (Tylenol) 650 mg Q4H PRN ORAL FOR TEMP >100.5 01/03/19 17:30 01/22/19 17:29 Acetylcysteine (Mucomyst) 200 mg Q4HRT [facility] 01/03/19 19:00 01/23/19 12:59 01/04/19 11:11 Albuterol/ Ipratropium (Albuterol/ Ipratropium) 3 ml Q4HRT [facility] 01/03/19 19:00 01/06/19 06:59 01/04/19 11:11 Clonidine HCl (Catapres Tab) 0.1 mg Q4H PRN ORAL bp over 165 syst 01/03/19 17:30 01/29/19 17:29 Dextrose (Dextrose 50%) 25 ml Q30M PRN IV Hypoglycemia 01/03/19 17:30 01/20/19 16:59 Dextrose (Dextrose 50%) 50 ml Q30M PRN IV Hypoglycemia 01/03/19 17:30 01/20/19 16:59 Dextrose/Sodium Chloride 1,000 ml @ 40 mls/hr Q24H IV 01/03/19 21:45 02/02/19 21:44 01/03/19 22:23 Diphenhydramine HCl (Benadryl) 50 mg Q6H PRN IM Restlessness 01/03/19 17:00 01/31/19 16:59 Docusate Sodium (Colace) 100 mg Q12HR ORAL 01/03/19 21:00 01/27/19 20:59 01/04/19 09:28 Haloperidol Lactate (Haldol) 5 mg Q6H PRN IM Agitation 01/03/19 17:30 01/23/19 17:29 01/03/19 23:32 Insulin Aspart (NovoLOG) EVERY 6 HOURS SUBQ 01/03/19 18:00 01/20/19 17:59 01/04/19 12:50 Lactulose (Cephulac) 20 gm THREE TIMES A DAY ORAL 01/03/19 18:00 01/30/19 17:59 01/04/19 12:50 Methylprednisolone Sodium Succinate (Solu-MEDROL) 30 mg DAILY IVP 01/04/19 09:00 01/28/19 08:59 01/04/19 09:28 Olanzapine (ZyPREXA) 10 mg BID ORAL 01/03/19 18:00 01/31/19 18:44 01/04/19 09:27 Pantoprazole (Protonix) 40 mg EVERY 12 HOURS IVP 01/03/19 21:00 01/21/19 10:59 01/04/19 09:27 Polyethylene Glycol (Miralax) 17 gm BEDTIME ORAL 01/03/19 21:00 01/30/19 20:59 Polyethylene Glycol (Miralax) 17 gm DAILYPRN PRN ORAL Constipation 01/03/19 17:30 02/02/19 17:29 Last 24 Hour Vital Signs Date Time Temp Pulse Resp B/P (MAP) Pulse Ox O2 Delivery O2 Flow Rate FiO2 01/04/19 11:15 88 18 99 Venturi Mask 4.0 30 80 18 98 01/04/19 08:00 98.7 78 24 117/69 (85) 95 01/04/19 08:00 30 01/04/19 08:00 Bi-pap 01/04/19 07:48 88 01/04/19 07:47 82 22 98 Bi-Pap 30 72 20 98 01/04/19 07:47 98 Bi-Pap 30 01/04/19 07:00 75 20 98 Full Face 30 01/04/19 05:13 117 20 97 Full Face 30 01/04/19 04:00 30 01/04/19 04:00 Bi-pap 01/04/19 04:00 98.2 80 18 158/88 (111) 97 01/04/19 04:00 84 01/04/19 03:27 80 20 98 Bi-Pap 30 76 20 97 01/04/19 03:20 111 20 94 Full Face 30 01/04/19 01:10 95 24 99 Full Face 30 01/04/19 00:00 Bi-pap 01/04/19 00:00 98.0 96 27 144/55 (84) 94 01/04/19 00:00 104 01/04/19 00:00 40 01/03/19 23:28 119 22 98 Full Face 30 01/03/19 20:00 100 01/03/19 20:00 40 01/03/19 20:00 98.2 111 34 141/117 (125) 94 01/03/19 20:00 Bi-pap 01/03/19 19:55 109 25 96 Venturi Mask 8.0 40 01/03/19 19:55 109 25 96 Venturi Mask 10.0 45 01/03/19 19:49 97 Venturi Mask 10.0 45 01/03/19 16:00 40 01/03/19 16:00 126 01/03/19 16:00 Bi-pap 01/03/19 16:00 98.0 120 33 148/74 (98) 93 01/03/19 15:00 114 32 142/73 (96) 100 01/03/19 14:56 99 Nasal Cannula 2.0 28 01/03/19 14:55 122 32 97 2.0 28 01/03/19 14:00 107 37 125/111 (116) 99 01/03/19 13:00 110 33 128/50 (76) 96 01/03/19 12:00 97.9 127 28 147/132 (137) 95 01/03/19 12:00 45 01/03/19 12:00 132 01/03/19 12:00 Bi-pap 01/03/19 11:52 120 33 97 2.0 28 01/03/19 11:00 118 35 65/51 (56) 99 01/03/19 10:00 110 32 143/63 (89) 96 01/03/19 09:00 122 34 132/60 (84) 99 01/03/19 08:00 45 01/03/19 08:00 Bi-pap 01/03/19 08:00 98.0 120 27 139/59 (85) 98 01/03/19 08:00 122 01/03/19 07:58 100 Nasal Cannula 2.0 28 01/03/19 07:36 110 29 93 2.0 28 01/03/19 07:00 110 30 151/82 (105) 94 01/03/19 06:00 115 33 134/96 (109) 99 01/03/19 05:03 111 33 100 Venturi Mask 10.0 45 01/03/19 05:00 45 01/03/19 05:00 103 25 124/80 (95) 99 01/03/19 04:00 55 01/03/19 04:00 99.6 107 23 155/79 (104) 99 01/03/19 04:00 106 01/03/19 04:00 Bi-pap 01/03/19 03:28 113 30 98 Full Face 30 115 26 99 Bi-Pap 30 01/03/19 03:00 109 29 141/82 (101) 97 01/03/19 02:00 107 28 147/82 (103) 98 01/03/19 01:23 91 29 98 Full Face 30 Bi-Pap 01/03/19 01:00 135 39 135/86 (102) 97 01/03/19 00:00 99.0 98 30 152/87 (108) 97 01/03/19 00:00 Bi-pap 01/03/19 00:00 30 01/03/19 00:00 97 01/02/19 23:22 102 36 100 Full Face 30 104 29 100 Bi-Pap 30 01/02/19 23:00 116 31 147/76 (99) 01/02/19 22:00 117 35 143/70 (94) 74 01/02/19 21:30 103 30 100 Full Face 30 Bi-Pap 01/02/19 21:00 92 24 135/66 (89) 97 01/02/19 20:00 30 01/02/19 20:00 99.2 103 23 95/72 (80) 97 01/02/19 20:00 Bi-pap 01/02/19 20:00 104 01/02/19 19:40 95 21 96 Full Face 30 95 21 96 Bi-Pap 30 01/02/19 19:39 100 Bi-Pap 30 01/02/19 19:00 100 30 128/78 (95) 100 01/02/19 18:00 101 30 119/62 (81) 100 01/02/19 17:11 126 34 96 Full Face 30 01/02/19 17:00 96 30 116/51 (72) 95 01/02/19 16:00 Bi-pap 01/02/19 16:00 112 01/02/19 16:00 99.3 96 28 116/62 (80) 97 01/02/19 16:00 40 01/02/19 15:00 106 30 112/61 (78) 95 01/02/19 14:58 99.6 01/02/19 14:58 122 30 90 Full Face 30 01/02/19 14:00 109 26 115/57 (76) 91 Intake and Output 01/03/19 01/04/19 19:00 07:00 Intake Total 360 ml 160 ml Output Total 300 ml 600 ml Balance 60 ml -440 ml IV Total 360 ml 160 ml Output Urine Total 300 ml 600 ml # Bowel Movements 3 Labs Test 01/02/19 04:45 01/02/19 04:57 01/03/19 08:25 01/03/19 08:30 White Blood Count 14.2 K/UL (4.8-10.8) 15.3 K/UL (4.8-10.8) Red Blood Count 3.89 M/UL (4.20-5.40) 4.05 M/UL (4.20-5.40) Hemoglobin 12.0 G/DL (12.0-16.0) 12.9 G/DL (12.0-16.0) Hematocrit 37.4 % (37.0-47.0) 36.7 % (37.0-47.0) Mean Corpuscular Volume 96 FL (80-99) 91 FL (80-99) Mean Corpuscular Hemoglobin 31.0 PG (27.0-31.0) 31.8 PG (27.0-31.0) Mean Corpuscular Hemoglobin Concent 32.2 G/DL (32.0-36.0) 35.0 G/DL (32.0-36.0) Red Cell Distribution Width 13.0 % (11.6-14.8) 12.7 % (11.6-14.8) Platelet Count 232 K/UL (150-450) 232 K/UL (150-450) Mean Platelet Volume 5.1 FL (6.5-10.1) 4.9 FL (6.5-10.1) Neutrophils (%) (Auto) 77.6 % (45.0-75.0) 73.0 % (45.0-75.0) Lymphocytes (%) (Auto) 16.1 % (20.0-45.0) 22.1 % (20.0-45.0) Monocytes (%) (Auto) 5.4 % (1.0-10.0) 3.6 % (1.0-10.0) Eosinophils (%) (Auto) 0.3 % (0.0-3.0) 0.3 % (0.0-3.0) Basophils (%) (Auto) 0.7 % (0.0-2.0) 1.1 % (0.0-2.0) Sodium Level 141 MMOL/L (136-145) 145 MMOL/L (136-145) Potassium Level 4.1 MMOL/L (3.5-5.1) 2.9 MMOL/L (3.5-5.1) Chloride Level 104 MMOL/L (98-107) 106 MMOL/L (98-107) Carbon Dioxide Level 29 MMOL/L (21-32) 29 MMOL/L (21-32) Anion Gap 8 mmol/L (5-15) 10 mmol/L (5-15) Blood Urea Nitrogen 13 mg/dL (7-18) 10 mg/dL (7-18) Creatinine 0.8 MG/DL (0.55-1.30) 1.0 MG/DL (0.55-1.30) Estimat Glomerular Filtration Rate > 60 mL/min (>60) > 60 mL/min (>60) Glucose Level 131 MG/DL (74-106) 106 MG/DL (74-106) Uric Acid 3.9 MG/DL (2.6-7.2) Calcium Level 8.7 MG/DL (8.5-10.1) 8.9 MG/DL (8.5-10.1) Phosphorus Level 3.0 MG/DL (2.5-4.9) Magnesium Level 2.0 MG/DL (1.8-2.4) Total Bilirubin 0.5 MG/DL (0.2-1.0) Aspartate Amino Transf (AST/SGOT) 22 U/L (15-37) Alanine Aminotransferase (ALT/SGPT) 51 U/L (12-78) Alkaline Phosphatase 66 U/L (46-116) Total Protein 6.1 G/DL (6.4-8.2) Albumin 2.6 G/DL (3.4-5.0) Globulin 3.5 g/dL Albumin/Globulin Ratio 0.7 (1.0-2.7) Arterial Blood pH 7.409 (7.350-7.450) Arterial Blood Partial Pressure CO2 38.9 mmHg (35.0-45.0) Arterial Blood Partial Pressure O2 74.2 mmHg (75.0-100.0) Arterial Blood HCO3 24.0 mmol/L (22.0-26.0) Arterial Blood Oxygen Saturation 94.4 % (95-100) Arterial Blood Base Excess -0.4 (-2-2) Luis Test Positive Test 01/04/19 03:25 White Blood Count 12.6 K/UL (4.8-10.8) Red Blood Count 3.87 M/UL (4.20-5.40) Hemoglobin 12.0 G/DL (12.0-16.0) Hematocrit 36.9 % (37.0-47.0) Mean Corpuscular Volume 96 FL (80-99) Mean Corpuscular Hemoglobin 31.1 PG (27.0-31.0) Mean Corpuscular Hemoglobin Concent 32.5 G/DL (32.0-36.0) Red Cell Distribution Width 13.4 % (11.6-14.8) Platelet Count 246 K/UL (150-450) Mean Platelet Volume 5.4 FL (6.5-10.1) Neutrophils (%) (Auto) 64.6 % (45.0-75.0) Lymphocytes (%) (Auto) 26.2 % (20.0-45.0) Monocytes (%) (Auto) 8.3 % (1.0-10.0) Eosinophils (%) (Auto) 0.4 % (0.0-3.0) Basophils (%) (Auto) 0.6 % (0.0-2.0) Sodium Level 146 MMOL/L (136-145) Potassium Level 3.3 MMOL/L (3.5-5.1) Chloride Level 108 MMOL/L (98-107) Carbon Dioxide Level 29 MMOL/L (21-32) Anion Gap 9 mmol/L (5-15) Blood Urea Nitrogen 7 mg/dL (7-18) Creatinine 0.9 MG/DL (0.55-1.30) Estimat Glomerular Filtration Rate > 60 mL/min (>60) Glucose Level 96 MG/DL (74-106) Uric Acid 4.2 MG/DL (2.6-7.2) Calcium Level 8.8 MG/DL (8.5-10.1) Phosphorus Level 3.6 MG/DL (2.5-4.9) Magnesium Level 2.1 MG/DL (1.8-2.4) Total Bilirubin 0.7 MG/DL (0.2-1.0) Aspartate Amino Transf (AST/SGOT) 18 U/L (15-37) Alanine Aminotransferase (ALT/SGPT) 45 U/L (12-78) Alkaline Phosphatase 65 U/L (46-116) C-Reactive Protein, Quantitative 6.0 mg/dL (0.00-0.90) Pro-B-Type Natriuretic Peptide 71 pg/mL (0-125) Total Protein 6.3 G/DL (6.4-8.2) Albumin 2.8 G/DL (3.4-5.0) Globulin 3.5 g/dL Albumin/Globulin Ratio 0.8 (1.0-2.7) Height (Feet): 5 Height (Inches): 9.00 Weight (Pounds): 295 Objective Physical Exam General Appearance: well appearing, nad, obese Head: normocephalic ++ ogt Resp: normal breath sounds bipap++ Cardiovascular: normal rate Gastrointestinal: normal inspection, non tender, soft, normal bowel sounds, non -distended Msk: normal inspection, back normal Skin: normal inspection, normal color, no rash, warm/dry, palpation normal, well hydrated Lymphatic: normal inspection, no adenopathy Wade Bonds MD Jan 04, 2019 13:33
--- NOTE | 2019-01-04 14:37 | NUR ---
HOMELESS COORDINATOR HC spoke with patient and patient is alert and oriented. Patient states she is not chronically homeless. Patient states her current address is [facility]. [address] [place] [id number]. Patient states she told the nurse she was homeless 6 years ago and hasn't been homeless since. Patient continues to require medical intervention. Will continue to monitor and assist as needed.
[2019-01-04 16:00] VITALS: BP 124/59
--- NOTE | 2019-01-04 18:27 | Pulmonolgy Critical Care Note ---
Critical Care - Asmt/Plan Assessment/Plan: Pulmonary CCM Progress Note HPI Patient is a 58-year-old woman with apparent history of Obstructive Airways Disease, Schizophrenia, Obesity, presented with shortness of breath, increased anxiety. Remains on PRN BiPAP Noted to have elevated ASA level on admission FIO2 reduced , AB per ID, Diuresing well Improving mental status, Psychiatry following, more interactive today, ST following Physical Exam Vital Signs Noted General Appearance: normal inspection, obese, awake Head: NCAT ENT: Moist mm, JVP not visible Neck: normal inspection, full range of motion, supple, no bony tend Respiratory: normal inspection, no respiratory distress, no retraction, no wheezing, reduced basal BS Cardiovascular: regular rate, rhythm, Normal HS1, HS2 Gastrointestinal: normal inspection, normal bowel sounds, non tender, soft, no guarding, no hernia Genitourinary: no CVA tenderness Musculoskeletal: normal inspection, minimal edema Neurologic: no focal signs noted, follows commands Impression: Respiratory failure - sp extubation, on PRN BiPAP Previously elevated Salicylate level Pneumonia Possible Congestive Heart Failure Salicylate overdose Schizophrenia/Psychosis Asthma Obesity Plan: Adjust FIO2, BiPAP PRN - wean as tolerated ABG CXR ID following IV Solumedrol reduced Sedation per Psychiatry Aspiration precautions, ST following HHN ISS NIGHT SHIFT MANAGER med PRN Sedation PPX Keep negative balance - received Lasix again today ST eval Labs Noted CXR: Small R effusion vascular congestion Critical Care - Objective Last 24 Hour Vital Signs Date Time Temp Pulse Resp B/P (MAP) Pulse Ox O2 Delivery O2 Flow Rate FiO2 01/04/19 16:00 99.6 120 26 124/59 (80) 97 01/04/19 16:00 Bi-pap 01/04/19 16:00 30 01/04/19 15:29 114 01/04/19 14:11 118 20 100 Nasal Cannula 4.0 36 111 20 96 01/04/19 12:00 30 01/04/19 12:00 99.4 114 21 122/71 (88) 95 01/04/19 12:00 Bi-pap 01/04/19 11:30 104 01/04/19 11:15 88 18 99 Venturi Mask 4.0 30 80 18 98 01/04/19 08:00 98.7 78 24 117/69 (85) 95 01/04/19 08:00 30 01/04/19 08:00 Bi-pap 01/04/19 07:48 88 01/04/19 07:47 82 22 98 Bi-Pap 30 72 20 98 01/04/19 07:47 98 Bi-Pap 30 01/04/19 07:00 75 20 98 Full Face 30 01/04/19 05:13 117 20 97 Full Face 30 01/04/19 04:00 30 01/04/19 04:00 Bi-pap 01/04/19 04:00 98.2 80 18 158/88 (111) 97 01/04/19 04:00 84 01/04/19 03:27 80 20 98 Bi-Pap 30 76 20 97 01/04/19 03:20 111 20 94 Full Face 30 01/04/19 01:10 95 24 99 Full Face 30 01/04/19 00:00 Bi-pap 01/04/19 00:00 98.0 96 27 144/55 (84) 94 01/04/19 00:00 104 01/04/19 00:00 40 01/03/19 23:28 119 22 98 Full Face 30 01/03/19 20:00 100 01/03/19 20:00 40 01/03/19 20:00 98.2 111 34 141/117 (125) 94 01/03/19 20:00 Bi-pap 01/03/19 19:55 109 25 96 Venturi Mask 8.0 40 01/03/19 19:55 109 25 96 Venturi Mask 10.0 45 01/03/19 19:49 97 Venturi Mask 10.0 45 Accucheck: 121 Critical Care - Subjective ROS Limited/Unobtainable: No FI02: 30 Vent Support Breath Rate: 24 Vent Support Mode: BiLevel Vent Tidal Volume: 550 Sputum Amount: None PEEP: 5.0 PIP: 14 Tube Feeding Amount: 40 I&O: Intake and Output 01/03/19 01/04/19 19:00 07:00 Intake Total 360 ml 160 ml Output Total 300 ml 600 ml Balance 60 ml -440 ml IV Total 360 ml 160 ml Output Urine Total 300 ml 600 ml # Bowel Movements 3 ET-Tube: 7.0 ET Position: 22 Kevan Monsalve MD Jan 04, 2019 18:27
--- NOTE | 2019-01-04 18:57 | NUR ---
NURSE NOTES: Received T.O from Dr. Boudreaux for Kcl 20meq. p.o x 1. Dr. Boudreaux aware pt. no IV access.
--- NOTE | 2019-01-04 19:10 | NUR ---
NURSE NOTES: Pt report received from Lynsey RN SDU. pt remains stable. pt is alert and oriented times 3, is able to follow commands. traffic monitor specialist shows ST with no other abnormalities notes. pt is on 2 L NC and able to sat up to 99%, no distress noted. pt bed is low, locked, armed, bed rails up times 3, call light within reach. will continue plan of care.
--- NOTE | 2019-01-04 19:28 | Cardiology Progress Note ---
Assessment/Plan Assessment/Plan 1. Sinus tachycardia, most likely due to hypoxemia, there is no need for AV carissa agents. 2. Acute respiratory failure due to right lung whiteout, resolved, transferred to [facility], on bipap mask. 3. History of chronic obstructive pulmonary disease. 4. History of salicylate overdose. 5. Morbid obesity. 6. Hyperthyroidism. 7. Dyslipidemia. Subjective Subjective Awake and alert. Sinus tachycardia at 126. On bipap mask with FiO2 of 40%. Objective Last 24 Hour Vital Signs Date Time Temp Pulse Resp B/P (MAP) Pulse Ox O2 Delivery O2 Flow Rate FiO2 01/04/19 16:00 99.6 120 26 124/59 (80) 97 01/04/19 16:00 Bi-pap 01/04/19 16:00 30 01/04/19 15:29 114 01/04/19 14:11 118 20 100 Nasal Cannula 4.0 36 111 20 96 01/04/19 12:00 30 01/04/19 12:00 99.4 114 21 122/71 (88) 95 01/04/19 12:00 Bi-pap 01/04/19 11:30 104 01/04/19 11:15 88 18 99 Venturi Mask 4.0 30 80 18 98 01/04/19 08:00 98.7 78 24 117/69 (85) 95 01/04/19 08:00 30 01/04/19 08:00 Bi-pap 01/04/19 07:48 88 01/04/19 07:47 82 22 98 Bi-Pap 30 72 20 98 01/04/19 07:47 98 Bi-Pap 30 01/04/19 07:00 75 20 98 Full Face 30 01/04/19 05:13 117 20 97 Full Face 30 01/04/19 04:00 30 01/04/19 04:00 Bi-pap 01/04/19 04:00 98.2 80 18 158/88 (111) 97 01/04/19 04:00 84 01/04/19 03:27 80 20 98 Bi-Pap 30 76 20 97 01/04/19 03:20 111 20 94 Full Face 30 01/04/19 01:10 95 24 99 Full Face 30 01/04/19 00:00 Bi-pap 01/04/19 00:00 98.0 96 27 144/55 (84) 94 01/04/19 00:00 104 9/3/19 00:00 40 01/03/19 23:28 119 22 98 Full Face 30 01/03/19 20:00 100 01/03/19 20:00 40 01/03/19 20:00 98.2 111 34 141/117 (125) 94 01/03/19 20:00 Bi-pap 01/03/19 19:55 109 25 96 Venturi Mask 8.0 40 01/03/19 19:55 109 25 96 Venturi Mask 10.0 45 01/03/19 19:49 97 Venturi Mask 10.0 45 Intake and Output 01/03/19 01/04/19 19:00 07:00 Intake Total 360 ml 160 ml Output Total 300 ml 600 ml Balance 60 ml -440 ml IV Total 360 ml 160 ml Output Urine Total 300 ml 600 ml # Bowel Movements 3 Laboratory Tests Test 01/04/19 03:25 White Blood Count 12.6 K/UL (4.8-10.8) H Red Blood Count 3.87 M/UL (4.20-5.40) L Hemoglobin 12.0 G/DL (12.0-16.0) Hematocrit 36.9 % (37.0-47.0) L Mean Corpuscular Volume 96 FL (80-99) Mean Corpuscular Hemoglobin 31.1 PG (27.0-31.0) H Mean Corpuscular Hemoglobin Concent 32.5 G/DL (32.0-36.0) Red Cell Distribution Width 13.4 % (11.6-14.8) Platelet Count 246 K/UL (150-450) Mean Platelet Volume 5.4 FL (6.5-10.1) L Neutrophils (%) (Auto) 64.6 % (45.0-75.0) Lymphocytes (%) (Auto) 26.2 % (20.0-45.0) Monocytes (%) (Auto) 8.3 % (1.0-10.0) Eosinophils (%) (Auto) 0.4 % (0.0-3.0) Basophils (%) (Auto) 0.6 % (0.0-2.0) Sodium Level 146 MMOL/L (136-145) H Potassium Level 3.3 MMOL/L (3.5-5.1) L Chloride Level 108 MMOL/L (98-107) H Carbon Dioxide Level 29 MMOL/L (21-32) Anion Gap 9 mmol/L (5-15) Blood Urea Nitrogen 7 mg/dL (7-18) Creatinine 0.9 MG/DL (0.55-1.30) Estimat Glomerular Filtration Rate > 60 mL/min (>60) Glucose Level 96 MG/DL (74-106) Uric Acid 4.2 MG/DL (2.6-7.2) Calcium Level 8.8 MG/DL (8.5-10.1) Phosphorus Level 3.6 MG/DL (2.5-4.9) Magnesium Level 2.1 MG/DL (1.8-2.4) Total Bilirubin 0.7 MG/DL (0.2-1.0) Aspartate Amino Transf (AST/SGOT) 18 U/L (15-37) Alanine Aminotransferase (ALT/SGPT) 45 U/L (12-78) Alkaline Phosphatase 65 U/L (46-116) C-Reactive Protein, Quantitative 6.0 mg/dL (0.00-0.90) H Pro-B-Type Natriuretic Peptide 71 pg/mL (0-125) Total Protein 6.3 G/DL (6.4-8.2) L Albumin 2.8 G/DL (3.4-5.0) L Globulin 3.5 g/dL Albumin/Globulin Ratio 0.8 (1.0-2.7) L Objective HEENT: Atraumatic and normocephalic. Anicteric. Pupils are equal, round, and reactive to light and accommodation. On bipap mask. NECK: JVP cannot be assessed. No carotid bruit. CARDIOVASCULAR: Normal S1, S2. Regular rate and rhythm. No murmurs, gallops, or rubs. PMI is at fourth intercostal space in the midclavicular line. LUNGS: Diminished breath sounds in both lungs. ABDOMEN: Soft, obese. No hepatosplenomegaly. Positive bowel sounds. EXTREMITIES: No evidence of edema, clubbing, or cyanosis. Velasquez Staton MD Jan 04, 2019 19:28
--- NOTE | 2019-01-04 19:40 | NUR ---
HAND-OFF: Report given to Lawrence Gómez RN. Pt. remain stable.
[2019-01-04 20:00] VITALS: BP 115/63
--- NOTE | 2019-01-04 20:36 | NUR ---
NURSE NOTES: Pt refused IV access and IV meds.
[2019-01-04] MEDS: Miralax 17gm pkt ORAL SCH (20:39)
[2019-01-04] MEDS: D5 1/2NS 1,000 ML IV SCH (20:53)
--- NOTE | 2019-01-04 21:24 | NUR ---
NURSE NOTES: contacted MD Joe and informed MD that pt has difficulty with IV refuses IV access. also requested to have a PICC line. stated to inform Rod Martinez MD in regards to IV therapy. will relay/ update onto Jerzy [facility] ICU SDU for continuation of care.
--- NOTE | 2019-01-04 21:49 | NUR ---
HAND-OFF: Report given to [facility]. Pt remains stable.
--- NOTE | 2019-01-04 22:00 | NUR ---
NURSE NOTES: Pt report received from Lawrence [facility] SDU. Patient is lethargic but awake, tachypneic in the 20s. Patinets HR is 116 ST. Patient is not following commands and being non-compliant with therapeutic treatments. library monitor shows ST with no other abnormalities notes. pt is on 2 L NC and able to sat up to 99%, pt bed is low, locked, armed, bed rails up times 3, call light within reach. will continue plan of care.
--- NOTE | 2019-01-04 22:05 | NUR ---
NURSE NOTES: Placed patient on BIPAP 14/10, 30% FiO2 for overnight as patient looked like was having sleep apnea. Patient saturating right now at 97% and breathing 24 per minute. BP remains stable and HR remains ST in the 120s. Patient easily arousable.
--- NOTE | 2019-01-04 22:30 | General Progress Note ---
Assessment/Plan Problem List: (1) Opioid dependence ICD Codes: F11.20 - Opioid dependence, uncomplicated SNOMED: 55568833 (2) Altered level of consciousness ICD Codes: R40.4 - Transient alteration of awareness SNOMED: 3674646 (3) Back pain ICD Codes: M54.9 - Dorsalgia, unspecified SNOMED: 603060222 (4) Opiate dependence ICD Codes: F11.20 - Opioid dependence, uncomplicated SNOMED: 88221243 (5) Depression ICD Codes: F32.9 - Major depressive disorder, single episode, unspecified SNOMED: 03765172 (6) Peripheral edema ICD Codes: R60.9 - Edema, unspecified SNOMED: 496186832 (7) Leg pain ICD Codes: M79.606 - Pain in leg, unspecified SNOMED: 61663927 (8) Headache ICD Codes: R51 - Headache SNOMED: 94350390 (9) COPD exacerbation ICD Codes: J44.1 - Chronic obstructive pulmonary disease with (acute) exacerbation SNOMED: 641555544 (10) Psychosis ICD Codes: F29 - Unsp psychosis not due to a substance or known physiol cond SNOMED: 82367900 (11) Respiratory failure ICD Codes: J96.90 - Respiratory failure, unspecified, unspecified whether with hypoxia or hypercapnia SNOMED: 973412232 (12) Salicylate overdose ICD Codes: T39.091A - Poisoning by salicylates, accidental (unintentional), initial encounter SNOMED: 154128056, 5216974 (13) Asthma ICD Codes: J45.909 - Unspecified asthma, uncomplicated SNOMED: 366961886, 8044518 (14) Anemia ICD Codes: D64.9 - Anemia, unspecified SNOMED: 259108658 Status: progressing Assessment/Plan: jsalicylate overdose intermittent bipap respiratory condition is improving poor insight afebrile no wheezing still lethargic psych patient Subjective ROS Limited/Unobtainable: Yes Constitutional: Reports: no symptoms Allergies: Coded Allergies: No Known Allergies (Unverified , 11/07/13) Objective Last 24 Hour Vital Signs Date Time Temp Pulse Resp B/P (MAP) Pulse Ox O2 Delivery O2 Flow Rate FiO2 01/04/19 20:06 112 22 98 Nasal Cannula 2.0 28 111 20 98 01/04/19 20:05 98 Nasal Cannula 2.0 28 01/04/19 20:00 30 01/04/19 20:00 118 01/04/19 20:00 Bi-pap 01/04/19 20:00 98.0 117 24 115/63 (80) 99 01/04/19 16:00 99.6 120 26 124/59 (80) 97 01/04/19 16:00 Bi-pap 01/04/19 16:00 30 01/04/19 15:29 114 01/04/19 14:11 118 20 100 Nasal Cannula 4.0 36 111 20 96 01/04/19 12:00 30 01/04/19 12:00 99.4 114 21 122/71 (88) 95 01/04/19 12:00 Bi-pap 01/04/19 11:30 104 01/04/19 11:15 88 18 99 Venturi Mask 4.0 30 80 18 98 01/04/19 08:00 98.7 78 24 117/69 (85) 95 01/04/19 08:00 30 01/04/19 08:00 Bi-pap 01/04/19 07:48 88 01/04/19 07:47 82 22 98 Bi-Pap 30 72 20 98 01/04/19 07:47 98 Bi-Pap 30 01/04/19 07:00 75 20 98 Full Face 30 01/04/19 05:13 117 20 97 Full Face 30 01/04/19 04:00 30 01/04/19 04:00 Bi-pap 01/04/19 04:00 98.2 80 18 158/88 (111) 97 01/04/19 04:00 84 01/04/19 03:27 80 20 98 Bi-Pap 30 76 20 97 01/04/19 03:20 111 20 94 Full Face 30 01/04/19 01:10 95 24 99 Full Face 30 01/04/19 00:00 Bi-pap 01/04/19 00:00 98.0 96 27 144/55 (84) 94 01/04/19 00:00 104 01/04/19 00:00 40 01/03/19 23:28 119 22 98 Full Face 30 Intake and Output 01/03/19 01/04/19 19:00 07:00 Intake Total 360 ml 160 ml Output Total 300 ml 600 ml Balance 60 ml -440 ml IV Total 360 ml 160 ml Output Urine Total 300 ml 600 ml # Bowel Movements 3 Laboratory Tests 01/04/19 03:25: White Blood Count 12.6H, Red Blood Count 3.87L, Hemoglobin 12.0, Hematocrit 36.9L, Mean Corpuscular Volume 96, Mean Corpuscular Hemoglobin 31.1H, Mean Corpuscular Hemoglobin Concent 32.5, Red Cell Distribution Width 13.4, Platelet Count 246, Mean Platelet Volume 5.4L, Neutrophils (%) (Auto) 64.6, Lymphocytes ( %) (Auto) 26.2, Monocytes (%) (Auto) 8.3, Eosinophils (%) (Auto) 0.4, Basophils (%) (Auto) 0.6, Sodium Level 146H, Potassium Level 3.3L, Chloride Level 108H, Carbon Dioxide Level 29, Anion Gap 9, Blood Urea Nitrogen 7, Creatinine 0.9, Estimat Glomerular Filtration Rate > 60, Glucose Level 96, Uric Acid 4.2, Calcium Level 8.8, Phosphorus Level 3.6, Magnesium Level 2.1, Total Bilirubin 0.7, Aspartate Amino Transf (AST/SGOT) 18, Alanine Aminotransferase (ALT/SGPT) 45, Alkaline Phosphatase 65, C-Reactive Protein, Quantitative 6.0H, Pro-B-Type Natriuretic Peptide 71, Total Protein 6.3L, Albumin 2.8L, Globulin 3.5, Albumin/ Globulin Ratio 0.8L Height (Feet): 5 Height (Inches): 9.00 Weight (Pounds): 295 General Appearance: lethargic, confused Respiratory/Chest: lungs clear Abdomen: soft Jasmine Joe MD Jan 04, 2019 22:30
--- NOTE | 2019-01-04 22:30 | NUR ---
NURSE NOTES: Left hand 22G IV inserted. Restarted IV fluids.
[2019-01-05] VITALS: BP 127/72
--- NOTE | 2019-01-05 | NUR ---
NURSE NOTES: Finished infusing the 10mEq KCL that was hold from AM shift due to no IV access. Patient remains on the BIPAP same settings saturating 95%. HR remains Sinus tachycardia in the 110s-120.
[2019-01-05] MEDS: NovoLOG Insulin Flexpen SUBQ SCH ×5 (00:17→21:15)
--- NOTE | 2019-01-05 02:00 | NUR ---
NURSE NOTES: Inserted another IV line on the Right wrist 22G. The right hand IV line remains patent and intact. Maintenance fluids ongoing, no issues at this time. Patient is sleeping and remains on the BIPAP. Repositioned patient.
[2019-01-05] MEDS: Albuterol/Ipratropium 3ml neb HHN SCH ×6 (02:09→23:00)
[2019-01-05] MEDS: Acetylcysteine 20% Soln 4ml HHN SCH ×6 (02:10→23:00)
[2019-01-05 04:00] VITALS: BP 94/73
--- NOTE | 2019-01-05 04:00 | NUR ---
NURSE NOTES: Patient cleaned and repositioned. Morning labs drawn and sent to lab. Patient remains on BIPAP. Remains ST in the 120s. Slightly tachypneic in the 20s, Spo2 is 95% and BP is 94/73. No new changes at this time, IV lines remains patent and intact.
[2019-01-05 04:46] LABS: EOSINOPHILS % (AUTO) 1.6 % (0.0-3.0); HEMATOCRIT 37.7 % (37.0-47.0); LYMPHOCYTES % (AUTO) 32.8 % (20.0-45.0); MEAN CORPUSCULAR VOLUME 97 FL (80-99); MONOCYTES % (AUTO) 7.5 % (1.0-10.0); NEUTROPHILS % (AUTO) 57.1 % (45.0-75.0); PLATELET COUNT 232 K/UL (150-450); RED BLOOD COUNT 3.89 M/UL (4.20-5.40); RED CELL DISTRIBUTION WIDTH 13.8 % (11.6-14.8); WHITE BLOOD COUNT 10.5 K/UL (4.8-10.8)
[2019-01-05 05:11] LABS: ANION GAP 7 mmol/L (5-15); BLOOD UREA NITROGEN 13 mg/dL (7-18); CALCIUM 9.1 MG/DL (8.5-10.1); CARBON DIOXIDE 30 MMOL/L (21-32); CHLORIDE 109 MMOL/L (98-107); PHOSPHORUS 4.1 MG/DL (2.5-4.9); POTASSIUM 3.9 MMOL/L (3.5-5.1); SODIUM 146 MMOL/L (136-145)
--- NOTE | 2019-01-05 05:30 | Progress Note ---
DATE: 01/04/2019 SUBJECTIVE: The patient is very combative today, agitated. She has been and stated that she needs to eat since that she needs to eat to the patient that she is NPO. She is discharged from the hospital. The patient denied suicide attempt. The patient is erratic, labile, and agitated. The patient is uncooperative with the staff. MENTAL STATUS EXAMINATION: The patient is alert, oriented times self. She knows she is in the hospital. She knew the year, did not know the month. Mood was angry and agitated. Affect is flat. Thought process is concrete. Thought content no suicidal, or homicidal ideations. Insight and judgment is poor. Cognition is impaired. ASSESSMENT: Acute encephalopathy is improving, status post suicide attempt. Overdosed on her medications. PLAN: 1. We will continue the current treatment. Provide the patient with reality orientation and supportive therapy. 2. We will continue to follow and readjust the medications. Laurie Canchola M.D. DR: Charles JOB#: [id number] CC: JACQUIE
--- NOTE | 2019-01-05 06:29 | NUR ---
NURSE NOTES: Patient placed on NC at 2L, minimal audible wheezing heard. Saturating at 96%. HR remains tachy at 110ST. BP remains stable. Patient able to converse conversation.
--- NOTE | 2019-01-05 07:20 | NUR ---
HAND-OFF: Report given to Khalida LIMA.
--- NOTE | 2019-01-05 07:30 | NUR ---
NURSE NOTES: Received the patient from CLARENCE Jaramillo. Patient is asleep, easily arousable, AOx2. On 2L O2 via NC, O2 sat 98%. no acute distress noted. ST HR 110s noted on the monitor tech. No c/o pain at this time. Right wrist 22G and right hand 22G, running D5 1/2NS at 45ml/hr. Mon cath intact, draining yellow urine by gravity. Bed in lowest position, locked, side rails upx3. Call light within reach. Will continue to monitor.
--- NOTE | 2019-01-05 07:42 | NUR ---
RESPIRATORY NOTE: received pt off bipap and placed on 2L NC. no resp distress noted at this time. no visible redness or skin tears seen. will cont to monitor
--- NOTE | 2019-01-05 07:47 | General Progress Note ---
Assessment/Plan Status: progressing Assessment/Plan: (1) Anemia ICD Codes: D64.9 - Anemia, unspecified SNOMED: 564123053 (2) Salicylate overdose ICD Codes: T39.091A - Poisoning by salicylates, accidental (unintentional), initial encounter SNOMED: 861890174, 8258158 (3) Respiratory failure ICD Codes: J96.90 - Respiratory failure, unspecified, unspecified whether with hypoxia or hypercapnia SNOMED: 065163004 (4) Suicidal intent ICD Codes: R45.851 - Suicidal ideations SNOMED: 559513422 Status: progressing Status Narrative Discussed with Dr. Saldana. Assessment/Plan No plans for GI procedures at this time, stable H&H on prn BIPAP Electrolyte correction OB stool r/o GI bleed monitor H&H, prn transfusions bowel regimen >> colace, miralax and lactulose ppi adv diet as tolerated fu labs calore count Subjective ROS Limited/Unobtainable: No Allergies: Coded Allergies: No Known Allergies (Unverified , 11/07/13) Objective Last 24 Hour Vital Signs Date Time Temp Pulse Resp B/P (MAP) Pulse Ox O2 Delivery O2 Flow Rate FiO2 01/05/19 07:35 124 26 97 Nasal Cannula 2.0 28 01/05/19 07:31 95 Nasal Cannula 2.0 28 01/05/19 04:30 2.0 01/05/19 04:01 Nasal Cannula 2.0 01/05/19 04:00 30 01/05/19 04:00 Bi-pap 01/05/19 04:00 98.7 117 22 94/73 (80) 97 01/05/19 04:00 120 01/05/19 02:30 107 24 96 Full Face 30 01/05/19 02:10 107 23 96 Bi-Pap 30 01/05/19 01:28 120 22 98 Full Face 30 01/05/19 00:00 116 01/05/19 00:00 Bi-pap 01/05/19 00:00 98.6 120 26 127/72 (90) 99 01/05/19 00:00 30 01/04/19 23:11 116 23 96 Bi-Pap 30 01/04/19 23:00 116 24 97 Full Face 30 01/04/19 20:06 112 22 98 Nasal Cannula 2.0 28 111 20 98 01/04/19 20:05 98 Nasal Cannula 2.0 28 01/04/19 20:00 30 01/04/19 20:00 118 01/04/19 20:00 Bi-pap 01/04/19 20:00 98.0 117 24 115/63 (80) 99 01/04/19 16:00 99.6 120 26 124/59 (80) 97 01/04/19 16:00 Bi-pap 01/04/19 16:00 30 01/04/19 15:29 114 01/04/19 14:11 118 20 100 Nasal Cannula 4.0 36 111 20 96 01/04/19 12:00 30 01/04/19 12:00 99.4 114 21 122/71 (88) 95 01/04/19 12:00 Bi-pap 01/04/19 11:30 104 01/04/19 11:15 88 18 99 Venturi Mask 4.0 30 80 18 98 01/04/19 08:00 98.7 78 24 117/69 (85) 95 01/04/19 08:00 30 01/04/19 08:00 Bi-pap 01/04/19 07:48 88 01/04/19 07:47 82 22 98 Bi-Pap 30 72 20 98 01/04/19 07:47 98 Bi-Pap 30 Intake and Output 01/04/19 01/05/19 18:59 06:59 Intake Total 200 ml 460 ml Output Total 350 ml Balance -150 ml 460 ml Intake Oral 200 ml IV Total 460 ml Output Urine Total 350 ml Laboratory Tests 01/05/19 04:00: White Blood Count 10.5, Red Blood Count 3.89L, Hemoglobin 12.0, Hematocrit 37.7 , Mean Corpuscular Volume 97, Mean Corpuscular Hemoglobin 30.9, Mean Corpuscular Hemoglobin Concent 32.0, Red Cell Distribution Width 13.8, Platelet Count 232, Mean Platelet Volume 5.0L, Neutrophils (%) (Auto) 57.1, Lymphocytes ( %) (Auto) 32.8, Monocytes (%) (Auto) 7.5, Eosinophils (%) (Auto) 1.6, Basophils (%) (Auto) 1.0, Sodium Level 146H, Potassium Level 3.9, Chloride Level 109H, Carbon Dioxide Level 30, Anion Gap 7, Blood Urea Nitrogen 13, Creatinine 1.0, Estimat Glomerular Filtration Rate > 60, Glucose Level 93, Calcium Level 9.1, Phosphorus Level 4.1, Magnesium Level 2.0 Height (Feet): 5 Height (Inches): 9.00 Weight (Pounds): 295 General Appearance: alert EENT: normal ENT inspection Neck: supple Cardiovascular: normal rate Respiratory/Chest: decreased breath sounds Abdomen: normal bowel sounds, non tender, soft Extremities: non-tender Vladimir Saldana MD Jan 05, 2019 07:47
[2019-01-05 08:00] VITALS: BP 103/41
--- NOTE | 2019-01-05 08:55 | Pulmonolgy Critical Care Note ---
Critical Care - Asmt/Plan Assessment/Plan: Pulmonary CCM Progress Note HPI Patient is a 58-year-old woman with apparent history of Obstructive Airways Disease, Schizophrenia, Obesity, presented with shortness of breath, increased anxiety. Remains on PRN BiPAP Noted to have elevated ASA level on admission FIO2 reduced , AB per ID, Diuresing well Improving mental status, Psychiatry following, more interactive today, ST following Physical Exam Vital Signs Noted General Appearance: normal inspection, obese, awake Head: NCAT ENT: Moist mm, JVP not visible Neck: normal inspection, full range of motion, supple, no bony tend Respiratory: normal inspection, no respiratory distress, no retraction, no wheezing, reduced basal BS Cardiovascular: regular rate, rhythm, Normal HS1, HS2 Gastrointestinal: normal inspection, normal bowel sounds, non tender, soft, no guarding, no hernia Genitourinary: no CVA tenderness Musculoskeletal: normal inspection, minimal edema Neurologic: no focal signs noted, follows commands Impression: Respiratory failure - sp extubation, on PRN BiPAP Previously elevated Salicylate level Pneumonia Possible Congestive Heart Failure Salicylate overdose Schizophrenia/Psychosis Asthma Obesity Plan: Adjust FIO2, BiPAP PRN - wean as tolerated ABG CXR ID following IV Solumedrol reduced Sedation per Psychiatry Aspiration precautions, ST following HHN ISS [employer] med PRN Sedation PPX Keep negative balance - received Lasix again today ST eval Labs Noted CXR: Small R effusion vascular congestion Critical Care - Objective Last 24 Hour Vital Signs Date Time Temp Pulse Resp B/P (MAP) Pulse Ox O2 Delivery O2 Flow Rate FiO2 01/05/19 08:00 Nasal Cannula 2.0 01/05/19 07:35 124 26 97 Nasal Cannula 2.0 28 01/05/19 07:31 95 Nasal Cannula 2.0 28 01/05/19 04:30 2.0 01/05/19 04:01 Nasal Cannula 2.0 01/05/19 04:00 30 01/05/19 04:00 Bi-pap 01/05/19 04:00 98.7 117 22 94/73 (80) 97 01/05/19 04:00 120 01/05/19 02:30 107 24 96 Full Face 30 01/05/19 02:10 107 23 96 Bi-Pap 30 01/05/19 01:28 120 22 98 Full Face 30 01/05/19 00:00 116 01/05/19 00:00 Bi-pap 01/05/19 00:00 98.6 120 26 127/72 (90) 99 01/05/19 00:00 30 01/04/19 23:11 116 23 96 Bi-Pap 30 01/04/19 23:00 116 24 97 Full Face 30 01/04/19 20:06 112 22 98 Nasal Cannula 2.0 28 111 20 98 01/04/19 20:05 98 Nasal Cannula 2.0 28 01/04/19 20:00 30 01/04/19 20:00 118 01/04/19 20:00 Bi-pap 01/04/19 20:00 98.0 117 24 115/63 (80) 99 01/04/19 16:00 99.6 120 26 124/59 (80) 97 01/04/19 16:00 Bi-pap 01/04/19 16:00 30 01/04/19 15:29 114 01/04/19 14:11 118 20 100 Nasal Cannula 4.0 36 111 20 96 01/04/19 12:00 30 01/04/19 12:00 99.4 114 21 122/71 (88) 95 01/04/19 12:00 Bi-pap 01/04/19 11:30 104 01/04/19 11:15 88 18 99 Venturi Mask 4.0 30 80 18 98 Accucheck: 93 Critical Care - Subjective FI02: 28 Vent Support Breath Rate: 24 Vent Support Mode: BiLevel Vent Tidal Volume: 550 Sputum Amount: None PEEP: 5.0 PIP: 14 Tube Feeding Amount: 40 I&O: Intake and Output 01/04/19 01/05/19 18:59 06:59 Intake Total 200 ml 460 ml Output Total 350 ml Balance -150 ml 460 ml Intake Oral 200 ml IV Total 460 ml Output Urine Total 350 ml ET-Tube: 7.0 ET Position: 22 Kevan Monsalve MD Jan 05, 2019 08:55
[2019-01-05] MEDS: Lactulose 20gm/30ml UDC ORAL SCH ×4 (09:00→17:25)
[2019-01-05] MEDS: Solu-MEDROL 40mg Inj IVP SCH (09:26)
[2019-01-05] MEDS: Docusate 100mg cap ORAL SCH ×2 (09:26→21:14)
[2019-01-05] MEDS: Pantoprazole Inj IVP SCH (09:26)
[2019-01-05] MEDS: OLANZapine 10mg tab ORAL SCH ×2 (09:26→17:24)
--- NOTE | 2019-01-05 11:15 | General Progress Note ---
Assessment/Plan Problem List: (1) Opioid dependence ICD Codes: F11.20 - Opioid dependence, uncomplicated SNOMED: 35078751 (2) Altered level of consciousness ICD Codes: R40.4 - Transient alteration of awareness SNOMED: 7205055 (3) Back pain ICD Codes: M54.9 - Dorsalgia, unspecified SNOMED: 771541952 (4) Opiate dependence ICD Codes: F11.20 - Opioid dependence, uncomplicated SNOMED: 20143997 (5) Depression ICD Codes: F32.9 - Major depressive disorder, single episode, unspecified SNOMED: 37979904 (6) Peripheral edema ICD Codes: R60.9 - Edema, unspecified SNOMED: 661213972 (7) Leg pain ICD Codes: M79.606 - Pain in leg, unspecified SNOMED: 55073049 (8) Headache ICD Codes: R51 - Headache SNOMED: 65130810 (9) COPD exacerbation ICD Codes: J44.1 - Chronic obstructive pulmonary disease with (acute) exacerbation SNOMED: 723503879 (10) Psychosis ICD Codes: F29 - Unsp psychosis not due to a substance or known physiol cond SNOMED: 70899342 (11) Respiratory failure ICD Codes: J96.90 - Respiratory failure, unspecified, unspecified whether with hypoxia or hypercapnia SNOMED: 027510162 (12) Salicylate overdose ICD Codes: T39.091A - Poisoning by salicylates, accidental (unintentional), initial encounter SNOMED: 215210227, 4609390 (13) Asthma ICD Codes: J45.909 - Unspecified asthma, uncomplicated SNOMED: 878589176, 6737518 (14) Anemia ICD Codes: D64.9 - Anemia, unspecified SNOMED: 301957516 Status: progressing Assessment/Plan: salicylate overdose not safe to dc intermittent bipap respiratory condition is improving poor insight reviewed chart and labs obesity afebrile still lethargic psych patient Subjective ROS Limited/Unobtainable: Yes Allergies: Coded Allergies: No Known Allergies (Unverified , 11/07/13) Objective Last 24 Hour Vital Signs Date Time Temp Pulse Resp B/P (MAP) Pulse Ox O2 Delivery O2 Flow Rate FiO2 01/05/19 11:09 112 24 98 Nasal Cannula 2.0 28 01/05/19 08:00 131 01/05/19 08:00 Nasal Cannula 2.0 01/05/19 08:00 99.2 119 26 103/41 (61) 98 01/05/19 07:35 124 26 97 Nasal Cannula 2.0 28 01/05/19 07:31 95 Nasal Cannula 2.0 28 01/05/19 04:30 2.0 01/05/19 04:01 Nasal Cannula 2.0 01/05/19 04:00 30 01/05/19 04:00 Bi-pap 01/05/19 04:00 98.7 117 22 94/73 (80) 97 01/05/19 04:00 120 01/05/19 02:30 107 24 96 Full Face 30 01/05/19 02:10 107 23 96 Bi-Pap 30 01/05/19 01:28 120 22 98 Full Face 30 01/05/19 00:00 116 01/05/19 00:00 Bi-pap 01/05/19 00:00 98.6 120 26 127/72 (90) 99 01/05/19 00:00 30 01/04/19 23:11 116 23 96 Bi-Pap 30 01/04/19 23:00 116 24 97 Full Face 30 01/04/19 20:06 112 22 98 Nasal Cannula 2.0 28 111 20 98 01/04/19 20:05 98 Nasal Cannula 2.0 28 01/04/19 20:00 30 01/04/19 20:00 118 01/04/19 20:00 Bi-pap 01/04/19 20:00 98.0 117 24 115/63 (80) 99 01/04/19 16:00 99.6 120 26 124/59 (80) 97 01/04/19 16:00 Bi-pap 01/04/19 16:00 30 01/04/19 15:29 114 01/04/19 14:11 118 20 100 Nasal Cannula 4.0 36 111 20 96 01/04/19 12:00 30 01/04/19 12:00 99.4 114 21 122/71 (88) 95 01/04/19 12:00 Bi-pap 01/04/19 11:30 104 01/04/19 11:15 88 18 99 Venturi Mask 4.0 30 80 18 98 Intake and Output 01/04/19 01/05/19 19:00 07:00 Intake Total 200 ml 500 ml Output Total 350 ml Balance -150 ml 500 ml Intake Oral 200 ml IV Total 500 ml Output Urine Total 350 ml Laboratory Tests 01/05/19 04:00: White Blood Count 10.5, Red Blood Count 3.89L, Hemoglobin 12.0, Hematocrit 37.7 , Mean Corpuscular Volume 97, Mean Corpuscular Hemoglobin 30.9, Mean Corpuscular Hemoglobin Concent 32.0, Red Cell Distribution Width 13.8, Platelet Count 232, Mean Platelet Volume 5.0L, Neutrophils (%) (Auto) 57.1, Lymphocytes ( %) (Auto) 32.8, Monocytes (%) (Auto) 7.5, Eosinophils (%) (Auto) 1.6, Basophils (%) (Auto) 1.0, Sodium Level 146H, Potassium Level 3.9, Chloride Level 109H, Carbon Dioxide Level 30, Anion Gap 7, Blood Urea Nitrogen 13, Creatinine 1.0, Estimat Glomerular Filtration Rate > 60, Glucose Level 93, Calcium Level 9.1, Phosphorus Level 4.1, Magnesium Level 2.0 Height (Feet): 5 Height (Inches): 9.00 Weight (Pounds): 295 General Appearance: lethargic, confused Cardiovascular: normal rate Respiratory/Chest: lungs clear Abdomen: soft Jasmine Joe MD Jan 05, 2019 11:14
--- NOTE | 2019-01-05 11:50 | NUR ---
PT EVALUATION NOTE Patient seen for initial evaluation, see complete evaluation for details. Patient presents with generalized weakness, deconditioning, impaired balance and decreased safety awareness which affects patient's ability to perform mobility tasks. Patient requires mod/max assist for bed mobility and min assist for transfers with FWW. Patient able to ambulate 10 ft with min assist and FWW. Patient will benefit from skilled inpatient PT intervention to address strength, balance, safety, endurance and functional mobility. Recommend discharge to short term SNF for further rehab once medically cleared by MD. Further DME needs to be determined based on patient's progress. Addendum: 01/05/19 at 1351 by ROBERTO TALAMANTES PT Amended: Links added.
[2019-01-05 12:00] VITALS: BP 139/79
--- NOTE | 2019-01-05 12:00 | NUR ---
NURSE NOTES: Patient was turned and repositioned. Patient kept clean and dry. Patient was out to bed with PT. Patient tolerated well. Patient eating lunch in bed.
--- NOTE | 2019-01-05 12:32 | Infectious Diseases Prog Note ---
Assessment/Plan Assessment/Plan IMPRESSION: Sepsis or systemic inflammatory response syndrome, resolved COPD, Hypercapnic respiratory failure, Salicylate toxicity, Morbid obesity. Leukocytosis improving Positive Urine culture, colonization RECOMMENDATION: Observe off antibiotic Taper steroids. Subjective ROS Limited/Unobtainable: Yes Constitutional: Reports: other - doing better HEENT: Reports: other - pain in throat Respiratory: Reports: dry cough Gastrointestinal/Abdominal: Reports: no symptoms Genitourinary: Reports: no symptoms Allergies: Coded Allergies: No Known Allergies (Unverified , 11/07/13) Objective Vital Signs Last 24 Hour Vital Signs Date Time Temp Pulse Resp B/P (MAP) Pulse Ox O2 Delivery O2 Flow Rate FiO2 01/05/19 12:00 Nasal Cannula 2.0 01/05/19 12:00 2.0 01/05/19 12:00 99.2 118 26 139/79 (99) 99 01/05/19 11:09 112 24 98 Nasal Cannula 2.0 28 01/05/19 08:00 131 01/05/19 08:00 Nasal Cannula 2.0 01/05/19 08:00 99.2 119 26 103/41 (61) 98 01/05/19 07:35 124 26 97 Nasal Cannula 2.0 28 01/05/19 07:31 95 Nasal Cannula 2.0 28 01/05/19 04:30 2.0 01/05/19 04:01 Nasal Cannula 2.0 01/05/19 04:00 30 01/05/19 04:00 Bi-pap 01/05/19 04:00 98.7 117 22 94/73 (80) 97 01/05/19 04:00 120 01/05/19 02:30 107 24 96 Full Face 30 01/05/19 02:10 107 23 96 Bi-Pap 30 01/05/19 01:28 120 22 98 Full Face 30 01/05/19 00:00 116 01/05/19 00:00 Bi-pap 01/05/19 00:00 98.6 120 26 127/72 (90) 99 01/05/19 00:00 30 01/04/19 23:11 116 23 96 Bi-Pap 30 01/04/19 23:00 116 24 97 Full Face 30 01/04/19 20:06 112 22 98 Nasal Cannula 2.0 28 111 20 98 01/04/19 20:05 98 Nasal Cannula 2.0 28 01/04/19 20:00 30 01/04/19 20:00 118 01/04/19 20:00 Bi-pap 01/04/19 20:00 98.0 117 24 115/63 (80) 99 01/04/19 16:00 99.6 120 26 124/59 (80) 97 01/04/19 16:00 Bi-pap 01/04/19 16:00 30 01/04/19 15:29 114 01/04/19 14:11 118 20 100 Nasal Cannula 4.0 36 111 20 96 Height (Feet): 5 Height (Inches): 9.00 Weight (Pounds): 295 General Appearance: other - obes HEENT: mucous membranes moist Respiratory/Chest: lungs clear Cardiovascular: tachycardia Abdomen: soft, non tender Extremities: no edema Neurologic/Psychiatric: alert, oriented x 3, responsive Laboratory Tests Test 01/05/19 04:00 White Blood Count 10.5 K/UL (4.8-10.8) Red Blood Count 3.89 M/UL (4.20-5.40) L Hemoglobin 12.0 G/DL (12.0-16.0) Hematocrit 37.7 % (37.0-47.0) Mean Corpuscular Volume 97 FL (80-99) Mean Corpuscular Hemoglobin 30.9 PG (27.0-31.0) Mean Corpuscular Hemoglobin Concent 32.0 G/DL (32.0-36.0) Red Cell Distribution Width 13.8 % (11.6-14.8) Platelet Count 232 K/UL (150-450) Mean Platelet Volume 5.0 FL (6.5-10.1) L Neutrophils (%) (Auto) 57.1 % (45.0-75.0) Lymphocytes (%) (Auto) 32.8 % (20.0-45.0) Monocytes (%) (Auto) 7.5 % (1.0-10.0) Eosinophils (%) (Auto) 1.6 % (0.0-3.0) Basophils (%) (Auto) 1.0 % (0.0-2.0) Sodium Level 146 MMOL/L (136-145) H Potassium Level 3.9 MMOL/L (3.5-5.1) Chloride Level 109 MMOL/L (98-107) H Carbon Dioxide Level 30 MMOL/L (21-32) Anion Gap 7 mmol/L (5-15) Blood Urea Nitrogen 13 mg/dL (7-18) Creatinine 1.0 MG/DL (0.55-1.30) Estimat Glomerular Filtration Rate > 60 mL/min (>60) Glucose Level 93 MG/DL (74-106) Calcium Level 9.1 MG/DL (8.5-10.1) Phosphorus Level 4.1 MG/DL (2.5-4.9) Magnesium Level 2.0 MG/DL (1.8-2.4) Current Medications Medications (Trade) Dose Ordered Sig/Amaya Route PRN Reason Start Time Stop Time Status Last Admin Dose Admin Acetaminophen (Tylenol) 650 mg Q4H PRN ORAL FOR TEMP >100.5 01/03/19 17:30 01/22/19 17:29 Acetylcysteine (Mucomyst) 200 mg Q4HRT N 01/03/19 19:00 01/23/19 12:59 01/05/19 11:09 Albuterol/ Ipratropium (Albuterol/ Ipratropium) 3 ml Q4HRT N 01/03/19 19:00 01/06/19 06:59 01/05/19 11:09 Clonidine HCl (Catapres Tab) 0.1 mg Q4H PRN ORAL bp over 165 syst 01/03/19 17:30 01/29/19 17:29 Dextrose (Dextrose 50%) 25 ml Q30M PRN IV Hypoglycemia 01/03/19 17:30 01/20/19 16:59 Dextrose (Dextrose 50%) 50 ml Q30M PRN IV Hypoglycemia 01/03/19 17:30 01/20/19 16:59 Dextrose/Sodium Chloride 1,000 ml @ 40 mls/hr Q24H IV 01/03/19 21:45 02/02/19 21:44 01/03/19 22:23 Diphenhydramine HCl (Benadryl) 50 mg Q6H PRN IM Restlessness 01/03/19 17:00 01/31/19 16:59 Docusate Sodium (Colace) 100 mg Q12HR ORAL 01/03/19 21:00 01/27/19 20:59 01/05/19 09:26 Haloperidol Lactate (Haldol) 5 mg Q6H PRN IM Agitation 01/03/19 17:30 01/23/19 17:29 01/03/19 23:32 Insulin Aspart (NovoLOG) AC+HS SUBQ 01/05/19 11:30 01/20/19 17:59 01/05/19 11:44 Lactulose (Cephulac) 20 gm THREE TIMES A DAY ORAL 01/03/19 18:00 01/30/19 17:59 01/04/19 12:50 Methylprednisolone Sodium Succinate (Solu-MEDROL) 30 mg DAILY IVP 01/04/19 09:00 01/28/19 08:59 01/05/19 09:26 Olanzapine (ZyPREXA) 10 mg BID ORAL 01/03/19 18:00 01/31/19 18:44 01/05/19 09:26 Pantoprazole (Protonix) 40 mg EVERY 12 HOURS IVP 01/03/19 21:00 01/21/19 10:59 01/05/19 09:26 Polyethylene Glycol (Miralax) 17 gm BEDTIME ORAL 01/03/19 21:00 01/30/19 20:59 01/04/19 20:39 Polyethylene Glycol (Miralax) 17 gm DAILYPRN PRN ORAL Constipation 01/03/19 17:30 02/02/19 17:29 Nikos Martinez MD Jan 05, 2019 12:32
--- NOTE | 2019-01-05 15:14 | Cardiology Report ---
APPROVED REPORT EXAM: Two-dimensional and M-mode echocardiogram with Doppler and color Doppler. INDICATION Tachycardia M-Mode DIMENSIONS IVSd1.4 (0.7-1.1cm)Left Atrium (MM)3.5 (1.6-4.0cm) LVDd4.0 (3.5-5.6cm)Aortic Root2.6 (2.0-3.7cm) PWd1.4 (0.7-1.1cm)Aortic Cusp Exc.1.8 (1.5-2.0cm) IVSs1.6 cm LVDs3.3 (2.5-4.0cm) PWs1.4 cm Technically difficult study due to pt's body habitus . Normal left ventricular chamber size, systolic function and wall motion to extent visualized. Left ventricular ejection fraction estimated to be 60-65%. Mild left ventricular hypertrophy. No pericardial effusion. Left atrial size at upper limits of normal. Right cardiac chamber sizes are within normal limits. Focal aortic valve sclerosis with adequate cusp excursion. Thickened mitral valve leaflets with normal excursion. Mitral annulus and aortic root calcification. Normal pulmonic valve structure. Normal tricuspid valve structure. IVC at normal size with physiologic collapse. A color flow and spectral Doppler study was performed and revealed: No aortic insufficiency. Trace mitral regurgitation. Mitral inflow indicates normal left ventricular diastolic function. Trace tricuspid regurgitation. Tricuspid systolic velocities suggests peak right ventricular systolic pressure of 26mmHg.
--- NOTE | 2019-01-05 15:50 | NUR ---
HAND-OFF: Report given to CLARENCE Medel.
--- NOTE | 2019-01-05 15:55 | NUR ---
NURSE NOTES: Assumed pt care ,report received from Sina Gaxiola RN.Pt resting quietly in bed asleep opens eyes spontaneously with verbal command in no resp distress denies any c/o sob or discomfort SR on the monitor,Mon cath draining yellow urine ,SR up x2 HOB elevated,call hawk at bedside,bed lock in lowest position,.will continue with plans of care.
[2019-01-05 16:00] VITALS: BP 136/59
[2019-01-05] MEDS ORDERED: Tubing IV Secondary IV ONE (17:01)
[2019-01-05] MEDS: D5 1/2NS 1,000 ML IV SCH (18:23)
--- NOTE | 2019-01-05 18:31 | NUR ---
NURSE NOTES: Pt sweating a lot,with low grade fever T99 F,advised to take off blankets x2 but refused,states she feels chilly.
--- NOTE | 2019-01-05 18:51 | Hematology/Onc Progress Note ---
Assessment/Plan Assessment/Plan Assessment and Recs: # Leukocytosis is likely due to steriods --> monitor steriod use --> accuchecks qac and qhs --> insulin as needed prn --> on ctx/doxy per id prn --> wbc 12-->15->17-->18-->14.3-->14-->15.2->12.6-->10.5 --> smear reviewed and no blasts noted # Anemia of iron deficiency with decreased ferritin --> No evidence of hemolysis is noted, peripheral smear has been reviewed. --> Hgb goal >7. Transfuse prn. --> Iron has been ordered x 1 dose given stable hgb --> Medications have been reviewed --> low threshold for gi evaluation in case has occult + --> hgb trend 11.6-->12.2-->12.1-->12 # Salicylate overdose now improved --> Medical management for salicylate overdose --> Sodium bicarbonate --> IVF started, as per renal --> now improved # Electrolyte correction --> replace k prn basis # Resp failure --> 12/29 extubated on nc --> bipap The timing of this note does not necessarily reflect the time of the patient was seen. GREATLY APPRECIATE CONSULTATION. Subjective Allergies: Coded Allergies: No Known Allergies (Unverified , 11/07/13) Subjective 12/23: no events, no bleeding reported, tf held for potential extubation 12/24: icu, trach, agitated and confused, labs reviewed, abx, fentanyl 12/26: no bleeding, no chills, still on abx, fentayl, labs reviewed 12/27: dox and ctx, no bleeding sputum cultures reviewed 12/29: turned, repositioned, remains npo, labs noted 12/30: icu, restless, on abx, no signs of distress, labs reviewed, no fever 12/31: remain in icu, agitated, on seroquel, on restraints, labs reviewed 01/01: remains agitated and restless, on bipap in the icu 01/03: no bleeding, no f, c, no night sweats, no major events, labs reviewed 01/05: imaging reviewed, on olanzapine, no sob, no distress Objective Objective Current Medications Medications (Trade) Dose Ordered Sig/Amaya Route PRN Reason Start Time Stop Time Status Last Admin Dose Admin Acetaminophen (Tylenol) 650 mg Q4H PRN ORAL FOR TEMP >100.5 01/03/19 17:30 01/22/19 17:29 Acetaminophen/ Hydrocodone Bitart ([place] 5/325) 1 tab Q4H PRN ORAL Moderate Pain (Pain Scale 4-6) 01/05/19 13:30 01/12/19 13:29 Acetylcysteine (Mucomyst) 200 mg Q4HRT N 01/03/19 19:00 01/23/19 12:59 01/05/19 11:09 Albuterol/ Ipratropium (Albuterol/ Ipratropium) 3 ml Q4HRT N 01/03/19 19:00 01/06/19 06:59 01/05/19 11:09 Clonidine HCl (Catapres Tab) 0.1 mg Q4H PRN ORAL bp over 165 syst 01/03/19 17:30 01/29/19 17:29 Dextrose (Dextrose 50%) 25 ml Q30M PRN IV Hypoglycemia 01/03/19 17:30 01/20/19 16:59 Dextrose (Dextrose 50%) 50 ml Q30M PRN IV Hypoglycemia 01/03/19 17:30 01/20/19 16:59 Dextrose/Sodium Chloride 1,000 ml @ 40 mls/hr Q24H IV 01/03/19 21:45 02/02/19 21:44 01/05/19 18:23 Diphenhydramine HCl (Benadryl) 50 mg Q6H PRN IM Restlessness 01/03/19 17:00 01/31/19 16:59 Docusate Sodium (Colace) 100 mg Q12HR ORAL 01/03/19 21:00 01/27/19 20:59 01/05/19 09:26 Haloperidol Lactate (Haldol) 5 mg Q6H PRN IM Agitation 01/03/19 17:30 01/23/19 17:29 01/03/19 23:32 Insulin Aspart (NovoLOG) AC+HS SUBQ 01/05/19 11:30 01/20/19 17:59 01/05/19 17:36 Lactulose (Cephulac) 20 gm THREE TIMES A DAY ORAL 01/03/19 18:00 01/30/19 17:59 01/04/19 12:50 Methylprednisolone Sodium Succinate (Solu-MEDROL) 30 mg DAILY IVP 01/04/19 09:00 01/28/19 08:59 01/05/19 09:26 Olanzapine (ZyPREXA) 10 mg BID ORAL 01/03/19 18:00 01/31/19 18:44 01/05/19 17:24 Pantoprazole (Protonix) 40 mg BIAC ORAL 01/05/19 16:30 02/04/19 16:29 01/05/19 17:24 Polyethylene Glycol (Miralax) 17 gm BEDTIME ORAL 01/03/19 21:00 01/30/19 20:59 01/04/19 20:39 Polyethylene Glycol (Miralax) 17 gm DAILYPRN PRN ORAL Constipation 01/03/19 17:30 02/02/19 17:29 Last 24 Hour Vital Signs Date Time Temp Pulse Resp B/P (MAP) Pulse Ox O2 Delivery O2 Flow Rate FiO2 01/05/19 16:00 105 01/05/19 16:00 2.0 01/05/19 16:00 Nasal Cannula 2.0 01/05/19 16:00 99.0 108 26 136/59 (84) 100 01/05/19 14:51 109 22 100 01/05/19 12:00 Nasal Cannula 2.0 01/05/19 12:00 112 01/05/19 12:00 2.0 01/05/19 12:00 99.2 118 26 139/79 (99) 99 01/05/19 11:09 112 24 98 Nasal Cannula 2.0 01/05/19 08:00 131 01/05/19 08:00 Nasal Cannula 2.0 01/05/19 08:00 99.2 119 26 103/41 (61) 98 01/05/19 07:35 124 26 97 Nasal Cannula 2.0 28 01/05/19 07:31 95 Nasal Cannula 2.0 28 01/05/19 04:30 2.0 01/05/19 04:01 Nasal Cannula 2.0 01/05/19 04:00 30 01/05/19 04:00 Bi-pap 01/05/19 04:00 98.7 117 22 94/73 (80) 97 01/05/19 04:00 120 01/05/19 02:30 107 24 96 Full Face 30 01/05/19 02:10 107 23 96 Bi-Pap 30 01/05/19 01:28 120 22 98 Full Face 30 01/05/19 00:00 116 01/05/19 00:00 Bi-pap 01/05/19 00:00 98.6 120 26 127/72 (90) 99 01/05/19 00:00 30 01/04/19 23:11 116 23 96 Bi-Pap 30 01/04/19 23:00 116 24 97 Full Face 30 01/04/19 20:06 112 22 98 Nasal Cannula 2.0 28 111 20 98 01/04/19 20:05 98 Nasal Cannula 2.0 28 01/04/19 20:00 30 01/04/19 20:00 118 01/04/19 20:00 Bi-pap 01/04/19 20:00 98.0 117 24 115/63 (80) 99 01/04/19 16:00 99.6 120 26 124/59 (80) 97 01/04/19 16:00 Bi-pap 01/04/19 16:00 30 01/04/19 15:29 114 01/04/19 14:11 118 20 100 Nasal Cannula 4.0 36 111 20 96 01/04/19 12:00 30 01/04/19 12:00 99.4 114 21 122/71 (88) 95 01/04/19 12:00 Bi-pap 01/04/19 11:30 104 01/04/19 11:15 88 18 99 Venturi Mask 4.0 30 80 18 98 01/04/19 08:00 98.7 78 24 117/69 (85) 95 01/04/19 08:00 30 01/04/19 08:00 Bi-pap 01/04/19 07:48 88 01/04/19 07:47 82 22 98 Bi-Pap 30 72 20 98 01/04/19 07:47 98 Bi-Pap 30 01/04/19 07:00 75 20 98 Full Face 30 01/04/19 05:13 117 20 97 Full Face 30 01/04/19 04:00 30 01/04/19 04:00 Bi-pap 01/04/19 04:00 98.2 80 18 158/88 (111) 97 01/04/19 04:00 84 01/04/19 03:27 80 20 98 Bi-Pap 30 76 20 97 01/04/19 03:20 111 20 94 Full Face 30 01/04/19 01:10 95 24 99 Full Face 30 01/04/19 00:00 Bi-pap 01/04/19 00:00 98.0 96 27 144/55 (84) 94 01/04/19 00:00 104 01/04/19 00:00 40 01/03/19 23:28 119 22 98 Full Face 30 01/03/19 20:00 100 01/03/19 20:00 40 01/03/19 20:00 98.2 111 34 141/117 (125) 94 01/03/19 20:00 Bi-pap 01/03/19 19:55 109 25 96 Venturi Mask 8.0 40 01/03/19 19:55 109 25 96 Venturi Mask 10.0 45 01/03/19 19:49 97 Venturi Mask 10.0 45 Intake and Output 01/04/19 01/05/19 19:00 07:00 Intake Total 200 ml 500 ml Output Total 350 ml Balance -150 ml 500 ml Intake Oral 200 ml IV Total 500 ml Output Urine Total 350 ml Labs Test 01/03/19 08:25 01/03/19 08:30 01/04/19 03:25 01/05/19 04:00 White Blood Count 15.3 K/UL (4.8-10.8) 12.6 K/UL (4.8-10.8) 10.5 K/UL (4.8-10.8) Red Blood Count 4.05 M/UL (4.20-5.40) 3.87 M/UL (4.20-5.40) 3.89 M/UL (4.20-5.40) Hemoglobin 12.9 G/DL (12.0-16.0) 12.0 G/DL (12.0-16.0) 12.0 G/DL (12.0-16.0) Hematocrit 36.7 % (37.0-47.0) 36.9 % (37.0-47.0) 37.7 % (37.0-47.0) Mean Corpuscular Volume 91 FL (80-99) 96 FL (80-99) 97 FL (80-99) Mean Corpuscular Hemoglobin 31.8 PG (27.0-31.0) 31.1 PG (27.0-31.0) 30.9 PG (27.0-31.0) Mean Corpuscular Hemoglobin Concent 35.0 G/DL (32.0-36.0) 32.5 G/DL (32.0-36.0) 32.0 G/DL (32.0-36.0) Red Cell Distribution Width 12.7 % (11.6-14.8) 13.4 % (11.6-14.8) 13.8 % (11.6-14.8) Platelet Count 232 K/UL (150-450) 246 K/UL (150-450) 232 K/UL (150-450) Mean Platelet Volume 4.9 FL (6.5-10.1) 5.4 FL (6.5-10.1) 5.0 FL (6.5-10.1) Neutrophils (%) (Auto) 73.0 % (45.0-75.0) 64.6 % (45.0-75.0) 57.1 % (45.0-75.0) Lymphocytes (%) (Auto) 22.1 % (20.0-45.0) 26.2 % (20.0-45.0) 32.8 % (20.0-45.0) Monocytes (%) (Auto) 3.6 % (1.0-10.0) 8.3 % (1.0-10.0) 7.5 % (1.0-10.0) Eosinophils (%) (Auto) 0.3 % (0.0-3.0) 0.4 % (0.0-3.0) 1.6 % (0.0-3.0) Basophils (%) (Auto) 1.1 % (0.0-2.0) 0.6 % (0.0-2.0) 1.0 % (0.0-2.0) Sodium Level 145 MMOL/L (136-145) 146 MMOL/L (136-145) 146 MMOL/L (136-145) Potassium Level 2.9 MMOL/L (3.5-5.1) 3.3 MMOL/L (3.5-5.1) 3.9 MMOL/L (3.5-5.1) Chloride Level 106 MMOL/L (98-107) 108 MMOL/L (98-107) 109 MMOL/L (98-107) Carbon Dioxide Level 29 MMOL/L (21-32) 29 MMOL/L (21-32) 30 MMOL/L (21-32) Anion Gap 10 mmol/L (5-15) 9 mmol/L (5-15) 7 mmol/L (5-15) Blood Urea Nitrogen 10 mg/dL (7-18) 7 mg/dL (7-18) 13 mg/dL (7-18) Creatinine 1.0 MG/DL (0.55-1.30) 0.9 MG/DL (0.55-1.30) 1.0 MG/DL (0.55-1.30) Estimat Glomerular Filtration Rate > 60 mL/min (>60) > 60 mL/min (>60) > 60 mL/min (>60) Glucose Level 106 MG/DL (74-106) 96 MG/DL (74-106) 93 MG/DL (74-106) Calcium Level 8.9 MG/DL (8.5-10.1) 8.8 MG/DL (8.5-10.1) 9.1 MG/DL (8.5-10.1) Arterial Blood pH 7.409 (7.350-7.450) Arterial Blood Partial Pressure CO2 38.9 mmHg (35.0-45.0) Arterial Blood Partial Pressure O2 74.2 mmHg (75.0-100.0) Arterial Blood HCO3 24.0 mmol/L (22.0-26.0) Arterial Blood Oxygen Saturation 94.4 % (95-100) Arterial Blood Base Excess -0.4 (-2-2) Luis Test Positive Uric Acid 4.2 MG/DL (2.6-7.2) Phosphorus Level 3.6 MG/DL (2.5-4.9) 4.1 MG/DL (2.5-4.9) Magnesium Level 2.1 MG/DL (1.8-2.4) 2.0 MG/DL (1.8-2.4) Total Bilirubin 0.7 MG/DL (0.2-1.0) Aspartate Amino Transf (AST/SGOT) 18 U/L (15-37) Alanine Aminotransferase (ALT/SGPT) 45 U/L (12-78) Alkaline Phosphatase 65 U/L (46-116) C-Reactive Protein, Quantitative 6.0 mg/dL (0.00-0.90) Pro-B-Type Natriuretic Peptide 71 pg/mL (0-125) Total Protein 6.3 G/DL (6.4-8.2) Albumin 2.8 G/DL (3.4-5.0) Globulin 3.5 g/dL Albumin/Globulin Ratio 0.8 (1.0-2.7) Height (Feet): 5 Height (Inches): 9.00 Weight (Pounds): 295 Objective Physical Exam General Appearance: well appearing, nad, obese Head: normocephalic ++ ogt Resp: normal breath sounds bipap++ Cardiovascular: normal rate Gastrointestinal: normal inspection, non tender, soft, normal bowel sounds, non -distended Msk: normal inspection, back normal Skin: normal inspection, normal color, no rash, warm/dry, palpation normal, well hydrated Lymphatic: normal inspection, no adenopathy Wade Bonds MD Jan 05, 2019 18:51
--- NOTE | 2019-01-05 19:16 | NUR ---
HAND-OFF: Report given to Lawrence Poe RN..
--- NOTE | 2019-01-05 19:19 | Nephrology Progress Note ---
Assessment/Plan Problem List: (1) Salicylate overdose (2) Psychosis (3) Anemia (4) Obesity (5) Hypokalemia (6) Rhabdomyolysis Assessment: high CPK Assessment HypoKalemia Mild Anemia s/p Acidosis resolved Respiratory failure Salicylate overdose Psychosis Asthma Obesity Plan Plan: continue resp. support hold Norvasc PRN clonidin extubated 12/29 K , Mag , Phos supplement as needed no IV fluids taper steroids as possible IV Protonix Resp management per Dr hurt monitor renal parameters Urine studies Subjective ROS Limited/Unobtainable: No Interval Events/Complaints seen AM 01/05/19- late entery Constitutional: Reports: malaise Objective Objective Last 24 Hour Vital Signs Date Time Temp Pulse Resp B/P (MAP) Pulse Ox O2 Delivery O2 Flow Rate FiO2 01/05/19 16:00 105 01/05/19 16:00 2.0 01/05/19 16:00 Nasal Cannula 2.0 01/05/19 16:00 99.0 108 26 136/59 (84) 100 01/05/19 14:51 109 22 100 01/05/19 12:00 Nasal Cannula 2.0 01/05/19 12:00 112 01/05/19 12:00 2.0 01/05/19 12:00 99.2 118 26 139/79 (99) 99 01/05/19 11:09 112 24 98 Nasal Cannula 2.0 28 01/05/19 08:00 131 01/05/19 08:00 Nasal Cannula 2.0 01/05/19 08:00 99.2 119 26 103/41 (61) 98 01/05/19 07:35 124 26 97 Nasal Cannula 2.0 28 01/05/19 07:31 95 Nasal Cannula 2.0 28 01/05/19 04:30 2.0 01/05/19 04:01 Nasal Cannula 2.0 01/05/19 04:00 30 01/05/19 04:00 Bi-pap 01/05/19 04:00 98.7 117 22 94/73 (80) 97 01/05/19 04:00 120 01/05/19 02:30 107 24 96 Full Face 30 01/05/19 02:10 107 23 96 Bi-Pap 30 01/05/19 01:28 120 22 98 Full Face 30 01/05/19 00:00 116 01/05/19 00:00 Bi-pap 01/05/19 00:00 98.6 120 26 127/72 (90) 99 01/05/19 00:00 30 01/04/19 23:11 116 23 96 Bi-Pap 30 01/04/19 23:00 116 24 97 Full Face 30 01/04/19 20:06 112 22 98 Nasal Cannula 2.0 28 111 20 98 01/04/19 20:05 98 Nasal Cannula 2.0 28 01/04/19 20:00 30 01/04/19 20:00 118 01/04/19 20:00 Bi-pap 01/04/19 20:00 98.0 117 24 115/63 (80) 99 Intake and Output 01/04/19 01/05/19 19:00 07:00 Intake Total 200 ml 500 ml Output Total 350 ml Balance -150 ml 500 ml Intake Oral 200 ml IV Total 500 ml Output Urine Total 350 ml (1) Asthma (2) Psychosis (3) Respiratory failure (4) Salicylate overdose Laboratory Tests 01/05/19 04:00: White Blood Count 10.5, Red Blood Count 3.89L, Hemoglobin 12.0, Hematocrit 37.7 , Mean Corpuscular Volume 97, Mean Corpuscular Hemoglobin 30.9, Mean Corpuscular Hemoglobin Concent 32.0, Red Cell Distribution Width 13.8, Platelet Count 232, Mean Platelet Volume 5.0L, Neutrophils (%) (Auto) 57.1, Lymphocytes ( %) (Auto) 32.8, Monocytes (%) (Auto) 7.5, Eosinophils (%) (Auto) 1.6, Basophils (%) (Auto) 1.0, Sodium Level 146H, Potassium Level 3.9, Chloride Level 109H, Carbon Dioxide Level 30, Anion Gap 7, Blood Urea Nitrogen 13, Creatinine 1.0, Estimat Glomerular Filtration Rate > 60, Glucose Level 93, Calcium Level 9.1, Phosphorus Level 4.1, Magnesium Level 2.0 Height (Feet): 5 Height (Inches): 9.00 Weight (Pounds): 295 General Appearance: no apparent distress Cardiovascular: normal rate Respiratory/Chest: decreased breath sounds Abdomen: other - obese Jerzy Boudreaux MD Jan 05, 2019 19:19
--- NOTE | 2019-01-05 19:30 | NUR ---
NURSE NOTES: Received pt with eyes close but easily arousable to verbal and tactile stimulation, oriented x3 CIFUENTES x4, appeared fatigue, ST low 100s on the monitor. Bp stable. Afebrile, on 02 at 2l/nc . Resp even and spont no sOB noted BS+ , inspiratory wheezing noted to upper lobes,. Pt with ivf D51/2ns at 40ml/hr, infusing to pt left hand. Site atraumatic. Mon to gravity with moderate amt of yellowish urine, monitor I and O, monitor lytes. Will continue to monitor.
--- NOTE | 2019-01-05 19:40 | NUR ---
HAND-OFF: Report given to Florina Escoto RN..
[2019-01-05 20:00] VITALS: BP 132/58
--- NOTE | 2019-01-05 21:00 | NUR ---
NURSE NOTES: Accuchecks 131mg/dl- with coverage. pls see emar.
[2019-01-05] MEDS: Miralax 17gm pkt ORAL SCH (21:14)
--- NOTE | 2019-01-05 22:00 | NUR ---
NURSE NOTES: Refused bIPAP and resp tx.akilah Grajeda was aware. will continue to watch and observe resp. status.
[2019-01-05] MEDS ORDERED: D5 1/2NS 1000ml IV ONE (22:34)
[2019-01-05] MEDS ORDERED: NS 275ml ONE (22:34)
[2019-01-06] VITALS: BP 133/69
--- NOTE | 2019-01-06 | NUR ---
NURSE NOTES: Sleeping well with VSS. No resp. distress noted. Partial bath was given with partial bed changed, done.
--- NOTE | 2019-01-06 00:11 | NUR ---
NURSE NOTES: Per respiratory therapist, patient adamantly refuses BiPAP at this time. Addendum: 01/07/19 at 0343 by KANDIS SHELDON RN RN Wrong time.
--- NOTE | 2019-01-06 02:30 | NUR ---
HAND-OFF: Report given to Lawrence in SDU for continuity of care..
--- NOTE | 2019-01-06 02:40 | NUR ---
NURSE NOTES: pt report received from [facility]. pt remains stable. pt is alert and oriented times 4 and is able to follow commands. pt is on 2 L NC and is satting at 100%, no signs of distress noted. pt monotype mechanic is showing ST (101) with no other abnormalities noted. pt bed is low, locked, armed, call light within reach, bed rails up times 3. will continue plan of care.
[2019-01-06] MEDS: Acetylcysteine 20% Soln 4ml HHN SCH ×3 (02:50→10:39)
[2019-01-06] MEDS: Albuterol/Ipratropium 3ml neb HHN SCH (02:50)
[2019-01-06 04:00] VITALS: BP 102/71
[2019-01-06] MEDS: NovoLOG Insulin Flexpen SUBQ SCH ×4 (05:38→22:12)
[2019-01-06] MEDS ORDERED: Albuterol/Ipratropium 3ml neb HHN SCH (07:00)
--- NOTE | 2019-01-06 07:12 | NUR ---
HAND-OFF: Report given to Sarah [facility]. Pt remains in stable condition.
--- NOTE | 2019-01-06 07:17 | NUR ---
NURSE NOTES: Report received from Lawrence [facility]. Pt alert and oriented x 3-4, able to make needs known. Pt denies pain or discomfort at this time. Pt ST, 100s on vehicle trimmer. Pt on 2 L O2, denies SOB. LH 22 G and R H 22 G, D 1/2NS @ 40 cc/hr. Safety measures in place with bed locked and in lowest position and side rails x3 up. Will continue to monitor and continue plan of care.
[2019-01-06 08:00] VITALS: BP 106/61
[2019-01-06] MEDS: HYDROcodone/Acetamin 5/325 tab ORAL PRN ×3 (08:21→22:29)
[2019-01-06] MEDS: Lactulose 20gm/30ml UDC ORAL SCH ×3 (08:21→17:27)
[2019-01-06] MEDS: Docusate 100mg cap ORAL SCH ×2 (08:22→17:27)
--- NOTE | 2019-01-06 08:25 | Consultation ---
History of Present Illness General Date patient seen: Jan 06, 2019 Present Illness Allergies: Coded Allergies: No Known Allergies (Unverified , 11/07/13) Medication History Scheduled Bupropion Sr* (Wellbutrin Sr*), 100 MG ORAL TWICE A DAY, (Reported) Cyclobenzaprine Hcl* (Flexeril*), 10 MG ORAL HS, (Reported) Furosemide* (Lasix*), 20 MG ORAL DAILY Gabapentin* (Gabapentin*), 200 MG ORAL THREE TIMES A DAY Olanzapine* (Zyprexa*), 10 MG ORAL DAILY Quetiapine Fumarate* (Seroquel*), 25 MG ORAL DAILY, (Reported) Temazepam (Temazepam*), 15 MG ORAL BEDTIME, (Reported) Scheduled PRN Hydrocodone/Acetaminophen (Hydrocodon-Acetaminophn 10-325), 1 TAB ORAL Q4H PRN for For Pain, (Reported) Ibuprofen* (Motrin*), 600 MG ORAL Q8H PRN for For Pain Ibuprofen* (Motrin*), 600 MG ORAL Q8H PRN for For Pain Zolpidem Tartrate* (Ambien*), 10 MG ORAL HS PRN for Insomnia, (Reported) Miscellaneous Medications Unable to Obtain Medications (Unable To Obtain Meds), (Reported) Patient History Healthcare decision maker Sukhdeep Dowell/ child Resuscitation status Full Code Advanced Directive on File No Physical Exam Last 24 Hour Vital Signs Date Time Temp Pulse Resp B/P (MAP) Pulse Ox O2 Delivery O2 Flow Rate FiO2 01/06/19 07:23 100 Nasal Cannula 2.0 28 01/06/19 04:00 2.0 01/06/19 04:00 98.1 110 20 102/71 (81) 99 01/06/19 04:00 Nasal Cannula 2.0 01/06/19 03:24 107 01/06/19 02:51 102 20 100 Nasal Cannula 2.0 28 101 19 97 01/06/19 00:00 Nasal Cannula 2.0 01/06/19 00:00 98.0 100 20 133/69 (90) 100 01/05/19 23:31 94 01/05/19 23:03 98 22 99 01/05/19 20:00 Nasal Cannula 2.0 01/05/19 20:00 99.0 110 20 132/58 (82) 100 01/05/19 20:00 102 01/05/19 20:00 2.0 01/05/19 19:15 101 24 97 Nasal Cannula 2.0 28 01/05/19 19:15 99 Nasal Cannula 2.0 28 01/05/19 16:00 105 01/05/19 16:00 2.0 01/05/19 16:00 Nasal Cannula 2.0 01/05/19 16:00 99.0 108 26 136/59 (84) 100 01/05/19 14:51 109 22 100 01/05/19 12:00 Nasal Cannula 2.0 01/05/19 12:00 112 01/05/19 12:00 2.0 01/05/19 12:00 99.2 118 26 139/79 (99) 99 01/05/19 11:09 112 24 98 Nasal Cannula 2.0 28 Intake and Output 01/05/19 01/06/19 18:59 06:59 Intake Total 955 ml 440 ml Output Total 1200 ml 200 ml Balance -245 ml 240 ml Intake Oral 515 ml 0 ml IV Total 440 ml 440 ml Output Urine Total 1200 ml 200 ml Height (Feet): 5 Height (Inches): 9.00 Weight (Pounds): 294 Medications Current Medications Medications (Trade) Dose Ordered Sig/Amaya Route PRN Reason Start Time Stop Time Status Last Admin Dose Admin Acetaminophen (Tylenol) 650 mg Q4H PRN ORAL FOR TEMP >100.5 01/03/19 17:30 01/22/19 17:29 Acetaminophen/ Hydrocodone Bitart ([place] 5/325) 1 tab Q4H PRN ORAL Moderate Pain (Pain Scale 4-6) 01/05/19 13:30 01/12/19 13:29 01/06/19 08:21 Acetylcysteine (Mucomyst) 200 mg Q4HRT N 01/03/19 19:00 01/23/19 12:59 01/06/19 02:50 Albuterol/ Ipratropium (Albuterol/ Ipratropium) 3 ml Q4HRT N 01/06/19 07:00 01/11/19 06:59 Clonidine HCl (Catapres Tab) 0.1 mg Q4H PRN ORAL bp over 165 syst 01/03/19 17:30 01/29/19 17:29 Dextrose (Dextrose 50%) 25 ml Q30M PRN IV Hypoglycemia 01/03/19 17:30 01/20/19 16:59 Dextrose (Dextrose 50%) 50 ml Q30M PRN IV Hypoglycemia 01/03/19 17:30 01/20/19 16:59 Dextrose/Sodium Chloride 1,000 ml @ 40 mls/hr Q24H IV 01/03/19 21:45 02/02/19 21:44 01/05/19 18:23 Diphenhydramine HCl (Benadryl) 50 mg Q6H PRN IM Restlessness 01/03/19 17:00 01/31/19 16:59 Docusate Sodium (Colace) 100 mg Q12HR ORAL 01/03/19 21:00 01/27/19 20:59 01/05/19 21:14 Haloperidol Lactate (Haldol) 5 mg Q6H PRN IM Agitation 01/03/19 17:30 01/23/19 17:29 01/03/19 23:32 Insulin Aspart (NovoLOG) AC+HS SUBQ 01/05/19 11:30 01/20/19 17:59 01/05/19 21:15 Lactulose (Cephulac) 20 gm THREE TIMES A DAY ORAL 01/03/19 18:00 01/30/19 17:59 01/04/19 12:50 Methylprednisolone Sodium Succinate (Solu-MEDROL) 30 mg DAILY IVP 01/04/19 09:00 01/28/19 08:59 01/05/19 09:26 Olanzapine (ZyPREXA) 10 mg BID ORAL 01/03/19 18:00 01/31/19 18:44 01/05/19 17:24 Pantoprazole (Protonix) 40 mg BIAC ORAL 01/05/19 16:30 02/04/19 16:29 01/06/19 05:39 Polyethylene Glycol (Miralax) 17 gm BEDTIME ORAL 01/03/19 21:00 01/30/19 20:59 01/05/19 21:14 Polyethylene Glycol (Miralax) 17 gm DAILYPRN PRN ORAL Constipation 01/03/19 17:30 02/02/19 17:29 Assessment/Plan Assessment/Plan: (1) Lumbar Spondylolisthesis (2) Lumbar Herniated disc (3) Lumbar Radiculopathy (4) Lumbar DDD (5) Lumbar Spondylosis seen dictated Cassius Sawyer Jan 06, 2019 08:25
[2019-01-06] MEDS: Solu-MEDROL 40mg Inj IVP SCH (08:37)
[2019-01-06] MEDS: OLANZapine 10mg tab ORAL SCH ×2 (08:37→17:26)
--- NOTE | 2019-01-06 09:17 | General Progress Note ---
Assessment/Plan Status: progressing Assessment/Plan: Assessment and Recs: # Leukocytosis is likely due to steriods --> monitor steriod use --> accuchecks qac and qhs --> insulin as needed prn --> on ctx/doxy per id prn --> wbc 12-->15->17-->18-->14.3-->14-->15.2->12.6-->10.5 --> smear reviewed and no blasts noted --> HAVE ordered labs again # Anemia of iron deficiency with decreased ferritin --> No evidence of hemolysis is noted, peripheral smear has been reviewed --> Hgb goal >7. Transfuse prn. --> Iron has been ordered x 1 dose given stable hgb --> Medications have been reviewed --> low threshold for gi evaluation in case has occult + --> hgb trend 11.6-->12.2-->12.1-->12 # Salicylate overdose now improved --> Medical management for salicylate overdose --> Sodium bicarbonate --> IVF started, as per renal --> now improved # Electrolyte correction --> replace k prn basis # Resp failure --> 12/29 extubated on nc --> bipap # Dvt ppx on lovenox (01/06) The timing of this note does not necessarily reflect the time of the patient was seen. GREATLY APPRECIATE CONSULTATION. Subjective Constitutional: Denies: no symptoms, chills, diaphoresis, fever, malaise, weakness, other HEENT: Denies: no symptoms, eye pain, blurred vision, tearing, double vision, ear pain, ear discharge, nose pain, nose congestion, throat pain, throat swelling, mouth pain, mouth swelling, other Cardiovascular: Denies: no symptoms, chest pain, edema, irregular heart rate, lightheadedness, palpitations, syncope, other Gastrointestinal/Abdominal: Denies: no symptoms, abdomen distended, abdominal pain, black stools, tarry stools, blood in stool, constipated, diarrhea, difficulty swallowing, nausea, poor appetite, poor fluid intake, rectal bleeding , vomiting, other Neurologic/Psychiatric: Denies: no symptoms, anxiety, depressed, emotional problems, headache, numbness, paresthesia, pre-existing deficit, seizure, tingling, tremors, weakness, other Allergies: Coded Allergies: No Known Allergies (Unverified , 11/07/13) Subjective 12/23: no events, no bleeding reported, tf held for potential extubation 12/24: icu, trach, agitated and confused, labs reviewed, abx, fentanyl 12/26: no bleeding, no chills, still on abx, fentayl, labs reviewed 12/27: dox and ctx, no bleeding sputum cultures reviewed 12/29: turned, repositioned, remains npo, labs noted 12/30: icu, restless, on abx, no signs of distress, labs reviewed, no fever 12/31: remain in icu, agitated, on seroquel, on restraints, labs reviewed 01/01: remains agitated and restless, on bipap in the icu 01/03: no bleeding, no f, c, no night sweats, no major events, labs reviewed 01/05: imaging reviewed, on olanzapine, no sob, no distress 01/06: no wheezing, a+o x3, no events, labs reviewed, seen with pain management Objective Last 24 Hour Vital Signs Date Time Temp Pulse Resp B/P (MAP) Pulse Ox O2 Delivery O2 Flow Rate FiO2 01/06/19 08:00 98.2 109 20 106/61 (76) 99 01/06/19 08:00 2.0 01/06/19 08:00 110 01/06/19 08:00 Nasal Cannula 2.0 01/06/19 07:23 100 Nasal Cannula 2.0 28 01/06/19 04:00 2.0 01/06/19 04:00 98.1 110 20 102/71 (81) 99 01/06/19 04:00 Nasal Cannula 2.0 01/06/19 03:24 107 01/06/19 02:51 102 20 100 Nasal Cannula 2.0 101 19 97 01/06/19 00:00 Nasal Cannula 2.0 01/06/19 00:00 98.0 100 20 133/69 (90) 100 01/05/19 23:31 94 01/05/19 23:03 98 22 99 01/05/19 20:00 Nasal Cannula 2.0 01/05/19 20:00 99.0 110 20 132/58 (82) 100 01/05/19 20:00 102 01/05/19 20:00 2.0 01/05/19 19:15 101 24 97 Nasal Cannula 2.0 28 01/05/19 19:15 99 Nasal Cannula 2.0 28 01/05/19 16:00 105 01/05/19 16:00 2.0 01/05/19 16:00 Nasal Cannula 2.0 01/05/19 16:00 99.0 108 26 136/59 (84) 100 01/05/19 14:51 109 22 100 01/05/19 12:00 Nasal Cannula 2.0 01/05/19 12:00 112 01/05/19 12:00 2.0 01/05/19 12:00 99.2 118 26 139/79 (99) 99 01/05/19 11:09 112 24 98 Nasal Cannula 2.0 28 Intake and Output 01/05/19 01/06/19 18:59 06:59 Intake Total 955 ml 440 ml Output Total 1200 ml 200 ml Balance -245 ml 240 ml Intake Oral 515 ml 0 ml IV Total 440 ml 440 ml Output Urine Total 1200 ml 200 ml Height (Feet): 5 Height (Inches): 9.00 Weight (Pounds): 294 Objective Physical Exam General Appearance: well appearing, nad, obese Head: normocephalic ++ ogt Resp: normal breath sounds bipap++ Cardiovascular: normal rate Gastrointestinal: normal inspection, non tender, soft, normal bowel sounds, non -distended Msk: normal inspection, back normal Skin: normal inspection, normal color, no rash, warm/dry, palpation normal, well hydrated Lymphatic: normal inspection, no adenopathy Wade Bonds MD Jan 06, 2019 09:17
[2019-01-06] MEDS ORDERED: Enoxaparin 40mg Inj SUBQ SCH (10:00)
--- NOTE | 2019-01-06 10:05 | General Progress Note ---
Assessment/Plan Status: progressing Assessment/Plan: (1) Anemia ICD Codes: D64.9 - Anemia, unspecified SNOMED: 879192577 (2) Salicylate overdose ICD Codes: T39.091A - Poisoning by salicylates, accidental (unintentional), initial encounter SNOMED: 273371279, 7717758 (3) Respiratory failure ICD Codes: J96.90 - Respiratory failure, unspecified, unspecified whether with hypoxia or hypercapnia SNOMED: 665098122 (4) Suicidal intent ICD Codes: R45.851 - Suicidal ideations SNOMED: 337101649 Status: progressing Status Narrative Discussed with Dr. Saldana. Assessment/Plan No plans for GI procedures at this time, stable H&H on prn BIPAP Electrolyte correction OB stool r/o GI bleed monitor H&H, prn transfusions bowel regimen >> colace, miralax and lactulose ppi adv diet as tolerated fu labs Subjective ROS Limited/Unobtainable: No Allergies: Coded Allergies: No Known Allergies (Unverified , 11/07/13) Objective Last 24 Hour Vital Signs Date Time Temp Pulse Resp B/P (MAP) Pulse Ox O2 Delivery O2 Flow Rate FiO2 01/06/19 08:00 98.2 109 20 106/61 (76) 99 01/06/19 08:00 2.0 01/06/19 08:00 110 01/06/19 08:00 Nasal Cannula 2.0 01/06/19 07:23 100 Nasal Cannula 2.0 28 01/06/19 04:00 2.0 01/06/19 04:00 98.1 110 20 102/71 (81) 99 01/06/19 04:00 Nasal Cannula 2.0 01/06/19 03:24 107 01/06/19 02:51 102 20 100 Nasal Cannula 2.0 28 101 19 97 01/06/19 00:00 Nasal Cannula 2.0 01/06/19 00:00 98.0 100 20 133/69 (90) 100 01/05/19 23:31 94 01/05/19 23:03 98 22 99 01/05/19 20:00 Nasal Cannula 2.0 01/05/19 20:00 99.0 110 20 132/58 (82) 100 01/05/19 20:00 102 01/05/19 20:00 2.0 01/05/19 19:15 101 24 97 Nasal Cannula 2.0 28 01/05/19 19:15 99 Nasal Cannula 2.0 28 01/05/19 16:00 105 01/05/19 16:00 2.0 01/05/19 16:00 Nasal Cannula 2.0 01/05/19 16:00 99.0 108 26 136/59 (84) 100 01/05/19 14:51 109 22 100 01/05/19 12:00 Nasal Cannula 2.0 01/05/19 12:00 112 01/05/19 12:00 2.0 01/05/19 12:00 99.2 118 26 139/79 (99) 99 01/05/19 11:09 112 24 98 Nasal Cannula 2.0 28 Intake and Output 01/05/19 01/06/19 18:59 06:59 Intake Total 955 ml 440 ml Output Total 1200 ml 200 ml Balance -245 ml 240 ml Intake Oral 515 ml 0 ml IV Total 440 ml 440 ml Output Urine Total 1200 ml 200 ml Height (Feet): 5 Height (Inches): 9.00 Weight (Pounds): 294 General Appearance: no apparent distress EENT: normal ENT inspection Neck: supple Cardiovascular: normal rate Respiratory/Chest: decreased breath sounds Abdomen: normal bowel sounds, non tender, soft Extremities: non-tender Vladimir Saldana MD Jan 06, 2019 10:05
[2019-01-06] MEDS ORDERED: Levalbuterol Inh UD 1.25mg/0.5ml HHN PRN ×4 (10:15→14:00)
--- NOTE | 2019-01-06 10:41 | Nephrology Progress Note ---
Assessment/Plan Problem List: (1) Salicylate overdose (2) Psychosis (3) Anemia (4) Obesity (5) Hypokalemia (6) Rhabdomyolysis Assessment: high CPK Assessment HypoKalemia Mild Anemia s/p Acidosis resolved Respiratory failure Salicylate overdose Psychosis Asthma Obesity Plan Plan: continue resp. support PRN clonidin extubated 12/29 K , Mag , Phos supplement as needed no IV fluids taper steroids as possible Resp management per Dr hurt monitor renal parameters Urine studies to Tele DC jauregui DC IV fluids Subjective ROS Limited/Unobtainable: No Constitutional: Reports: other - calm - verbal NAD Objective Objective Last 24 Hour Vital Signs Date Time Temp Pulse Resp B/P (MAP) Pulse Ox O2 Delivery O2 Flow Rate FiO2 01/06/19 08:00 98.2 109 20 106/61 (76) 99 01/06/19 08:00 2.0 01/06/19 08:00 110 01/06/19 08:00 Nasal Cannula 2.0 01/06/19 07:23 100 Nasal Cannula 2.0 28 01/06/19 04:00 2.0 01/06/19 04:00 98.1 110 20 102/71 (81) 99 01/06/19 04:00 Nasal Cannula 2.0 01/06/19 03:24 107 01/06/19 02:51 102 20 100 Nasal Cannula 2.0 101 19 97 01/06/19 00:00 Nasal Cannula 2.0 01/06/19 00:00 98.0 100 20 133/69 (90) 100 01/05/19 23:31 94 01/05/19 23:03 98 22 99 01/05/19 20:00 Nasal Cannula 2.0 01/05/19 20:00 99.0 110 20 132/58 (82) 100 01/05/19 20:00 102 01/05/19 20:00 2.0 01/05/19 19:15 101 24 97 Nasal Cannula 2.0 28 01/05/19 19:15 99 Nasal Cannula 2.0 28 01/05/19 16:00 105 01/05/19 16:00 2.0 01/05/19 16:00 Nasal Cannula 2.0 01/05/19 16:00 99.0 108 26 136/59 (84) 100 01/05/19 14:51 109 22 100 01/05/19 12:00 Nasal Cannula 2.0 01/05/19 12:00 112 01/05/19 12:00 2.0 01/05/19 12:00 99.2 118 26 139/79 (99) 99 01/05/19 11:09 112 24 98 Nasal Cannula 2.0 28 Intake and Output 01/05/19 01/06/19 18:59 06:59 Intake Total 955 ml 440 ml Output Total 1200 ml 200 ml Balance -245 ml 240 ml Intake Oral 515 ml 0 ml IV Total 440 ml 440 ml Output Urine Total 1200 ml 200 ml Height (Feet): 5 Height (Inches): 9.00 Weight (Pounds): 294 General Appearance: no apparent distress Cardiovascular: tachycardia Respiratory/Chest: decreased breath sounds Abdomen: soft, other - obese Jerzy Boudreaux MD Jan 06, 2019 10:41
--- NOTE | 2019-01-06 11:18 | NUR ---
RD ASSESSMENT & RECOMMENDATIONS SEE CARE ACTIVITY FOR COMPLETE ASSESSMENT DAILY ESTIMATED NEEDS: Needs based on Pulmonary, morbidly obese 11-14 kcal/ kg actual body wt (143kg) kcals/kg 3665-9251 total kcals 1.5-1.8 IBW (66kg) g protein/kg 99-119 g total protein Fluid per MD NUTRITION DIAGNOSIS: Swallowing difficulty R/T respiratory status as evidenced by orally intubated and sedated, now w/p extubation, on soft easy chew diet as per SAMPLE WORKER eval. CURRENT DIET: CCHO LOW/ CARDIAC soft easy chew PO DIET RECOMMENDATIONS: POST EXTUBATION-> CCHO LOW, CARDIAC/ texture per SAMPLE WORKER or as tolerated ADDITIONAL RECOMMENDATIONS: * CALIBRATED bedscale wt for accurate CBW * Monitor lytes daily, replete as needed * Monitor BGs closely while on Solumedrol/ need for carb control diet * SAMPLE WORKER eval prior to oral diet (s/p extubation) * As able rec to obtain a standing weight for accurate CBW
--- NOTE | 2019-01-06 11:51 | NUR ---
CASE MANAGEMENT: REVIEW 01/06/2019 SI:SEPSIS. PNA. T 98.2 HR 109 RR 20 B/P 106/61 SATS 99% ON 2L/NC NO LABS TODAY IS:INSULIN ASPART SUBQ Q6H PROTONIX IV Q12H K PHOS IV X1 FENTANYL IV Q24H CEFTRIAXONE IV Q24H SOLU MEDROL IV Q6H DOXYCYCLINE NG Q12H SDU
[2019-01-06 12:00] VITALS: BP 106/74
[2019-01-06] MEDS ORDERED: Docusate 100mg cap ORAL SCH (13:00)
--- NOTE | 2019-01-06 13:03 | NUR ---
NURSE NOTES: Pt cleared by Dr Boudreaux and Dr Monsalve to go to tele. Pt tachy but no acute distress otherwise. Will continue to monitor.
[2019-01-06] MEDS ORDERED: Acetaminophen 650mg/20.3ml ORAL PRN (13:30)
[2019-01-06] MEDS ORDERED: Haloperidol 5mg/ml Inj IM PRN (13:31)
[2019-01-06] MEDS ORDERED: Miralax 17gm pkt ORAL PRN (13:32)
--- NOTE | 2019-01-06 13:34 | NUR ---
HAND-OFF: Report given to Lizy LIMA.
--- NOTE | 2019-01-06 13:40 | NUR ---
NURSE NOTES: Received pt a transfer fr SDU,report given by Kelly LIMA.pt awake,alert in no resp distress ,on 2 L NC ,denies any discomfort or pain,S-tach on the monitor,voids per BSC,IV sites x2 intact LH and RW with IVF D5 1/2 NS,at 40 ml/hr,Sr up x2 HOB elevated,bed lock in lowest position ,will continue with plans of care.
--- NOTE | 2019-01-06 14:32 | Infectious Diseases Prog Note ---
Assessment/Plan Assessment/Plan IMPRESSION: Sepsis or systemic inflammatory response syndrome, resolved COPD, Hypercapnic respiratory failure, Salicylate toxicity, Morbid obesity. Leukocytosis resolved Positive Urine culture, colonization RECOMMENDATION: Observe off antibiotic Taper steroids. Subjective ROS Limited/Unobtainable: Yes Constitutional: Denies: fever Allergies: Coded Allergies: No Known Allergies (Unverified , 11/07/13) Objective Vital Signs Last 24 Hour Vital Signs Date Time Temp Pulse Resp B/P (MAP) Pulse Ox O2 Delivery O2 Flow Rate FiO2 01/06/19 12:00 117 01/06/19 12:00 Nasal Cannula 2.0 01/06/19 12:00 2.0 01/06/19 12:00 99.1 119 20 106/74 (85) 97 01/06/19 10:54 119 16 98 Nasal Cannula 2.0 28 111 15 96 01/06/19 08:00 98.2 109 20 106/61 (76) 99 01/06/19 08:00 2.0 01/06/19 08:00 110 01/06/19 08:00 Nasal Cannula 2.0 01/06/19 07:23 100 Nasal Cannula 2.0 28 01/06/19 04:00 2.0 01/06/19 04:00 98.1 110 20 102/71 (81) 99 01/06/19 04:00 Nasal Cannula 2.0 01/06/19 03:24 107 01/06/19 02:51 102 20 100 Nasal Cannula 2.0 28 101 19 97 01/06/19 00:00 Nasal Cannula 2.0 01/06/19 00:00 98.0 100 20 133/69 (90) 100 01/05/19 23:31 94 01/05/19 23:03 98 22 99 01/05/19 20:00 Nasal Cannula 2.0 01/05/19 20:00 99.0 110 20 132/58 (82) 100 01/05/19 20:00 102 01/05/19 20:00 2.0 01/05/19 19:15 101 24 97 Nasal Cannula 2.0 28 01/05/19 19:15 99 Nasal Cannula 2.0 28 01/05/19 16:00 105 01/05/19 16:00 2.0 01/05/19 16:00 Nasal Cannula 2.0 01/05/19 16:00 99.0 108 26 136/59 (84) 100 01/05/19 14:51 109 22 100 Height (Feet): 5 Height (Inches): 9.00 Weight (Pounds): 294 General Appearance: no acute distress HEENT: mucous membranes moist Respiratory/Chest: lungs clear, other - oxygen by nasal cannula Cardiovascular: tachycardia Abdomen: soft, non tender Extremities: no edema Neurologic/Psychiatric: other - sleeping Current Medications Medications (Trade) Dose Ordered Sig/Amaya Route PRN Reason Start Time Stop Time Status Last Admin Dose Admin Acetaminophen (Tylenol) 650 mg Q4H PRN ORAL FOR TEMP >100.5 01/06/19 13:30 02/05/19 13:29 Acetaminophen/ Hydrocodone Bitart ([place] 5/325) 1 tab Q4H PRN ORAL Moderate Pain (Pain Scale 4-6) 01/06/19 13:31 01/13/19 13:30 Clonidine HCl (Catapres Tab) 0.1 mg Q4H PRN ORAL bp over 165 syst 01/06/19 13:30 02/05/19 13:29 Dextrose (Dextrose 50%) 25 ml Q30M PRN IV Hypoglycemia 01/06/19 13:30 01/20/19 16:59 Dextrose (Dextrose 50%) 50 ml Q30M PRN IV Hypoglycemia 01/06/19 13:30 01/20/19 16:59 Diphenhydramine HCl (Benadryl) 50 mg Q6H PRN IM Restlessness 01/06/19 13:30 02/05/19 13:29 Docusate Sodium (Colace) 100 mg TID ORAL 01/06/19 18:00 01/27/19 20:59 Enoxaparin Sodium (Lovenox) 40 mg DAILY SUBQ 01/07/19 09:00 02/05/19 09:59 Haloperidol Lactate (Haldol) 5 mg Q6H PRN IM Agitation 01/06/19 13:31 02/05/19 13:30 Insulin Aspart (NovoLOG) AC+HS SUBQ 01/06/19 16:30 01/20/19 17:59 Lactulose (Cephulac) 20 gm THREE TIMES A DAY ORAL 01/06/19 18:00 01/30/19 17:59 Levalbuterol HCl (Xopenex) 0.63 mg Q8H PRN HHN Shortness of Breath 01/06/19 14:00 01/11/19 13:59 Methylprednisolone Sodium Succinate (Solu-MEDROL) 30 mg DAILY IVP 01/07/19 09:00 01/28/19 08:59 Olanzapine (ZyPREXA) 10 mg BID ORAL 01/06/19 18:00 01/31/19 18:44 Pantoprazole (Protonix) 40 mg BIAC ORAL 01/06/19 16:30 02/04/19 16:29 Polyethylene Glycol (Miralax) 17 gm BEDTIME ORAL 01/06/19 21:00 01/30/19 20:59 Polyethylene Glycol (Miralax) 17 gm DAILYPRN PRN ORAL Constipation 01/06/19 13:32 02/05/19 13:31 Nikos Martinez MD Jan 06, 2019 14:32
[2019-01-06] MEDS ORDERED: Acetylcysteine 20% Soln 4ml HHN SCH (15:00)
[2019-01-06 16:00] VITALS: BP 148/78
--- NOTE | 2019-01-06 17:00 | NUR ---
NURSE NOTES: Pt stable,no resp distress noted,denies any c/o pain or discomfort.
--- NOTE | 2019-01-06 18:04 | Pulmonolgy Critical Care Note ---
Critical Care - Asmt/Plan Assessment/Plan: Pulmonary CCM Progress Note HPI Patient is a 58-year-old woman with apparent history of Obstructive Airways Disease, Schizophrenia, Obesity, presented with shortness of breath, increased anxiety. Remains on PRN BiPAP Noted to have elevated ASA level on admission FIO2 reduced , AB per ID, Diuresing well Improving mental status, Psychiatry following, more interactive today, ST following Physical Exam Vital Signs Noted General Appearance: normal inspection, obese, awake Head: NCAT ENT: Moist mm, JVP not visible Neck: normal inspection, full range of motion, supple, no bony tend Respiratory: normal inspection, no respiratory distress, no retraction, no wheezing, reduced basal BS Cardiovascular: regular rate, rhythm, Normal HS1, HS2 Gastrointestinal: normal inspection, normal bowel sounds, non tender, soft, no guarding, no hernia Genitourinary: no CVA tenderness Musculoskeletal: normal inspection, minimal edema Neurologic: no focal signs noted, follows commands Impression: Respiratory failure - sp extubation, on PRN BiPAP Previously elevated Salicylate level Pneumonia Possible Congestive Heart Failure Salicylate overdose Schizophrenia/Psychosis Asthma Obesity Plan: Adjust FIO2, BiPAP PRN - wean as tolerated ABG CXR ID following IV Solumedrol reduced Sedation per Psychiatry Aspiration precautions, ST following 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 Sedation PPX Keep negative balance - received Lasix again today ST eval Labs Noted CXR: Small R effusion vascular congestion Critical Care - Objective Last 24 Hour Vital Signs Date Time Temp Pulse Resp B/P (MAP) Pulse Ox O2 Delivery O2 Flow Rate FiO2 01/06/19 12:00 117 01/06/19 12:00 Nasal Cannula 2.0 01/06/19 12:00 2.0 01/06/19 12:00 99.1 119 20 106/74 (85) 97 01/06/19 10:54 119 16 98 Nasal Cannula 2.0 28 111 15 96 01/06/19 08:00 98.2 109 20 106/61 (76) 99 01/06/19 08:00 2.0 01/06/19 08:00 110 01/06/19 08:00 Nasal Cannula 2.0 01/06/19 07:23 100 Nasal Cannula 2.0 28 01/06/19 04:00 2.0 01/06/19 04:00 98.1 110 20 102/71 (81) 99 01/06/19 04:00 Nasal Cannula 2.0 01/06/19 03:24 107 01/06/19 02:51 102 20 100 Nasal Cannula 2.0 28 101 19 97 01/06/19 00:00 Nasal Cannula 2.0 01/06/19 00:00 98.0 100 20 133/69 (90) 100 01/05/19 23:31 94 01/05/19 23:03 98 22 99 01/05/19 20:00 Nasal Cannula 2.0 01/05/19 20:00 99.0 110 20 132/58 (82) 100 01/05/19 20:00 102 01/05/19 20:00 2.0 01/05/19 19:15 101 24 97 Nasal Cannula 2.0 28 01/05/19 19:15 99 Nasal Cannula 2.0 28 Accucheck: 168 Critical Care - Subjective ROS Limited/Unobtainable: No FI02: 28 Vent Support Breath Rate: 24 Vent Support Mode: BiLevel Vent Tidal Volume: 550 Sputum Amount: None PEEP: 5.0 PIP: 14 Tube Feeding Amount: 40 I&O: Intake and Output 01/05/19 01/06/19 19:00 07:00 Intake Total 915 ml 480 ml Output Total 1200 ml 200 ml Balance -285 ml 280 ml Intake Oral 515 ml 0 ml IV Total 400 ml 480 ml Output Urine Total 1200 ml 200 ml ET-Tube: 7.0 ET Position: 22 Kevan Monsalve MD Jan 06, 2019 18:04
--- NOTE | 2019-01-06 19:34 | NUR ---
HAND-OFF: Report given to Morena LIMA/Nafisa LIMA.
--- NOTE | 2019-01-06 19:35 | NUR ---
NURSE NOTES: Received patient awake, lying in semi hughes's; resting comfortably; on 2L via NC. A/O x4. Denies pain, at this time. No signs of acute cardiorespiratory distress noted. Able to make needs known with supervision. Checked IV site and flushed. No erythema, infiltration or bleeding noted. Bed at lowest position, brakes on, siderails x3. Comfort care provided. Will continue to monitor.
[2019-01-06 20:00] VITALS: BP 135/86
--- NOTE | 2019-01-06 21:00 | Progress Note ---
DATE: 01/06/2019 SUBJECTIVE: The patient is doing well. Eating food. Denies any depressive symptoms. Stated that this was not a suicide attempt. The patient wants to be discharged back to her own apartment. The patient stated that she is already in a psychiatric program everyday. The patient is denying any psychotic symptoms. MENTAL STATUS EXAMINATION: Alert, oriented x4. Mood is neutral. Affect is blunted, congruent with mood. Thought process, linear and goal oriented. Thought content, no suicidal or homicidal ideations. Insight and judgment is fair. ASSESSMENT: Schizophrenia, status post suicide attempt by overdose. PLAN: 1. The patient will be continued on Zyprexa. 2. Provide the patient with reality orientation and supportive therapy. Laruie Canchola M.D. DR: KIRBY JOB#: [id number] CC:
[2019-01-06] MEDS: Miralax 17gm pkt ORAL SCH (22:00)
[2019-01-06] MEDS: DiphenhydrAMINE 50mg/ml Inj IM PRN (22:03)
--- NOTE | 2019-01-06 23:05 | Cardiology Progress Note ---
Assessment/Plan Assessment/Plan 1. Sinus tachycardia, most likely due to hypoxemia, there is no need for AV carissa agents. Echo reveals normal LV systolic and diastolic fxn, LVEF at 65%. 2. Acute respiratory failure due to right lung whiteout, resolved, transferred to [facility], on [place] oxygen. 3. History of chronic obstructive pulmonary disease. 4. History of salicylate overdose. 5. Morbid obesity. 6. Hyperthyroidism. 7. Dyslipidemia. Subjective Subjective Awake and alert. Sinus tachycardia at 109. On NC with FiO2 of 28%. Objective Last 24 Hour Vital Signs Date Time Temp Pulse Resp B/P (MAP) Pulse Ox O2 Delivery O2 Flow Rate FiO2 01/06/19 20:00 109 01/06/19 20:00 97.6 102 20 135/86 (102) 97 01/06/19 19:50 98 Nasal Cannula 2.0 28 01/06/19 16:00 115 01/06/19 16:00 98.4 109 19 148/78 (101) 95 01/06/19 12:00 117 01/06/19 12:00 Nasal Cannula 2.0 01/06/19 12:00 2.0 01/06/19 12:00 99.1 119 20 106/74 (85) 97 01/06/19 10:54 119 16 98 Nasal Cannula 2.0 28 111 15 96 01/06/19 08:00 98.2 109 20 106/61 (76) 99 01/06/19 08:00 2.0 01/06/19 08:00 110 01/06/19 08:00 Nasal Cannula 2.0 01/06/19 07:23 100 Nasal Cannula 2.0 28 01/06/19 04:00 2.0 01/06/19 04:00 98.1 110 20 102/71 (81) 99 01/06/19 04:00 Nasal Cannula 2.0 01/06/19 03:24 107 01/06/19 02:51 102 20 100 Nasal Cannula 2.0 28 101 19 97 01/06/19 00:00 Nasal Cannula 2.0 01/06/19 00:00 98.0 100 20 133/69 (90) 100 01/05/19 23:31 94 Intake and Output 01/05/19 01/06/19 19:00 07:00 Intake Total 915 ml 480 ml Output Total 1200 ml 200 ml Balance -285 ml 280 ml Intake Oral 515 ml 0 ml IV Total 400 ml 480 ml Output Urine Total 1200 ml 200 ml 2D Echo: LVEF 65%, mild LVH, RVSP 26 mmHg, Normal LV diastolic fxn Objective HEENT: Atraumatic and normocephalic. Anicteric. Pupils are equal, round, and reactive to light and accommodation. On NC oxygen. NECK: JVP cannot be assessed. No carotid bruit. CARDIOVASCULAR: Normal S1, S2. Regular rate and rhythm. No murmurs, gallops, or rubs. PMI is at fourth intercostal space in the midclavicular line. LUNGS: Diminished breath sounds in both lungs. ABDOMEN: Soft, obese. No hepatosplenomegaly. Positive bowel sounds. EXTREMITIES: No evidence of edema, clubbing, or cyanosis. Velasquez Staton MD Jan 06, 2019 23:05
[2019-01-07] VITALS: BP 127/78
--- NOTE | 2019-01-07 00:11 | NUR ---
NURSE NOTES: Per respiratory therapist, patient adamantly refuses BiPAP at this time.
--- NOTE | 2019-01-07 01:06 | NUR ---
NURSE NOTES: Resting throughout the night. No significant change of condition noted. Will continue to monitor.
[2019-01-07 04:00] VITALS: BP 138/80
--- NOTE | 2019-01-07 04:00 | Consultation ---
DATE OF CONSULTATION: 01/06/2019 PAIN MANAGEMENT CONSULTATION CONSULTING PHYSICIAN: Eda Chappell M.D. REFERRING PHYSICIAN: Jasmine Joe M.D. PHYSICIAN BROADBAND ENGINEER: Anders Win CHIEF COMPLAINT: Low back pain HISTORY OF PRESENT ILLNESS: This is a 58-year-old female, who is being seen in the [facility] for comprehensive pain management consultation. The patient is a known patient from previous hospital and longterm stays, now admitted under the care of Dr. Joe due to COPD exacerbation and continues to complain of lower back pain. As an outpatient, she is receiving Fentress 10/325 as needed and now was started on Fentress 5/325 one tablet every 4 hours, which the patient reports has been helping to relieve her pain to a tolerable level. She is comfortable at this time and we were consulted so the patient would have adequate pain control while here in the hospital. REVIEW OF SYSTEMS: Denies rash, fever, chills, sweating, dizziness, drowsiness, blurred vision, sore throat, or change in weight. No nausea, vomiting, or blood in the stool or urine. No bowel or bladder incontinence. She is complaining of low back pain. PHYSICAL EXAMINATION: GENERAL: Alert, awake, and oriented. VITAL SIGNS: Blood pressure 102/71, heart rate is 110, oxygen saturation 99%, respiratory rate 20, and temperature is 98.1 degrees Fahrenheit. LUNGS: Decreased breath sounds bilaterally. HEART: S1 and S2 regular. ABDOMEN: Obese. EXTREMITIES: No cyanosis, no clubbing. NEUROLOGICAL: Weakness noted bilaterally in the upper and lower extremities. ASSESSMENT AND PLAN: This is a 58-year-old female with lumbar degenerative disc disease, lumbar spondylosis, lumbar herniated disc, lumbar spondylolisthesis. The patient to be on Fentress as needed. The patient was discussed with Dr. Chappell and Dr. Chappell concurred. We will follow the patient. Thank you very much for the courtesy of this consultation. Eda Chappell M.D. ROSALIE Win DR: VASQUEZ JOB#: [id number] CC: JACQUIE
[2019-01-07] MEDS: NovoLOG Insulin Flexpen SUBQ SCH ×4 (06:30→20:28)
--- NOTE | 2019-01-07 07:28 | Nephrology Progress Note ---
Assessment/Plan Problem List: (1) Salicylate overdose (2) Psychosis (3) Anemia (4) Obesity (5) Hypokalemia (6) Rhabdomyolysis Assessment: high CPK Assessment HypoKalemia Mild Anemia s/p Acidosis resolved Respiratory failure Salicylate overdose Psychosis Asthma Obesity Plan Plan: no labs today continue resp. support PRN clonidin extubated 12/29 K , Mag , Phos supplement as needed no IV fluids taper steroids as possible Resp management per Dr hurt monitor renal parameters Urine studies to Tele DC jauregui DC IV fluids Subjective ROS Limited/Unobtainable: No Constitutional: Reports: malaise Objective Objective Last 24 Hour Vital Signs Date Time Temp Pulse Resp B/P (MAP) Pulse Ox O2 Delivery O2 Flow Rate FiO2 01/07/19 04:00 89 01/07/19 04:00 98.4 118 18 138/80 (99) 96 01/07/19 00:00 98.1 109 18 127/78 (94) 96 01/07/19 00:00 110 01/06/19 21:00 Nasal Cannula 2.0 01/06/19 20:00 109 01/06/19 20:00 97.6 102 20 135/86 (102) 97 01/06/19 19:50 98 Nasal Cannula 2.0 28 01/06/19 16:00 115 01/06/19 16:00 98.4 109 19 148/78 (101) 95 01/06/19 12:00 117 01/06/19 12:00 Nasal Cannula 2.0 01/06/19 12:00 2.0 01/06/19 12:00 99.1 119 20 106/74 (85) 97 01/06/19 10:54 119 16 98 Nasal Cannula 2.0 28 111 15 96 01/06/19 08:00 98.2 109 20 106/61 (76) 99 01/06/19 08:00 2.0 01/06/19 08:00 110 01/06/19 08:00 Nasal Cannula 2.0 Intake and Output 01/06/19 01/07/19 19:00 07:00 Intake Total 680 ml 100 ml Output Total 550 ml 300 ml Balance 130 ml -200 ml Intake Oral 600 ml 100 ml IV Total 80 ml Output Urine Total 550 ml 300 ml # Voids 4 # Bowel Movements 1 2 Height (Feet): 5 Height (Inches): 9.00 Weight (Pounds): 289 General Appearance: no apparent distress EENT: other - cannula Cardiovascular: normal rate Respiratory/Chest: decreased breath sounds Abdomen: soft Jerzy Boudreaux MD Jan 07, 2019 07:28
--- NOTE | 2019-01-07 07:50 | NUR ---
HAND-OFF: Report given to CLARENCE Adair. Patient is awake, eating breakfast; stable condition. No distress noted.
[2019-01-07 08:00] VITALS: BP 119/61
--- NOTE | 2019-01-07 08:02 | NUR ---
NURSE NOTES: Received report from CLARENCE Bauer and CLARENCE Vee. The patient is having a breakfast on the bed without acute distress or shortness of breath. The patient's bed in the lowest position, call light in reach, and fall and aspiration precaution reinforced. IV site on R wrist 22G intact and patent. Will continue to monitor the patient. Will continue plan of care.
--- NOTE | 2019-01-07 08:08 | General Progress Note ---
Assessment/Plan Assessment/Plan: (1) Lumbar Spondylolisthesis (2) Lumbar Herniated disc (3) Lumbar Radiculopathy (4) Lumbar DDD (5) Lumbar Spondylosis Patient will be continued on Casey D/w Dr. Chappell and he concurred. Subjective Date patient seen: Jan 07, 2019 Time patient seen: 07:30 - am Constitutional: Reports: no symptoms HEENT: Reports: no symptoms Cardiovascular: Reports: no symptoms Respiratory: Reports: no symptoms Gastrointestinal/Abdominal: Reports: no symptoms Genitourinary: Reports: no symptoms Neurologic/Psychiatric: Reports: no symptoms Endocrine: Reports: no symptoms Hematologic/Lymphatic: Reports: no symptoms Allergies: Coded Allergies: No Known Allergies (Unverified , 11/07/13) Subjective Patient is in bed and shows no signs of pain or distress. Her pain has been tolerated on the norco. She has no new complaints at this time. Objective Last 24 Hour Vital Signs Date Time Temp Pulse Resp B/P (MAP) Pulse Ox O2 Delivery O2 Flow Rate FiO2 01/07/19 07:58 98 Nasal Cannula 2.0 28 01/07/19 04:00 89 01/07/19 04:00 98.4 118 18 138/80 (99) 96 01/07/19 00:00 98.1 109 18 127/78 (94) 96 01/07/19 00:00 110 01/06/19 21:00 Nasal Cannula 2.0 01/06/19 20:00 109 01/06/19 20:00 97.6 102 20 135/86 (102) 97 01/06/19 19:50 98 Nasal Cannula 2.0 28 01/06/19 16:00 115 01/06/19 16:00 98.4 109 19 148/78 (101) 95 01/06/19 12:00 117 01/06/19 12:00 Nasal Cannula 2.0 01/06/19 12:00 2.0 01/06/19 12:00 99.1 119 20 106/74 (85) 97 01/06/19 10:54 119 16 98 Nasal Cannula 2.0 28 111 15 96 Intake and Output 01/06/19 01/07/19 19:00 07:00 Intake Total 680 ml 100 ml Output Total 550 ml 300 ml Balance 130 ml -200 ml Intake Oral 600 ml 100 ml IV Total 80 ml Output Urine Total 550 ml 300 ml # Voids 4 # Bowel Movements 1 2 Height (Feet): 5 Height (Inches): 9.00 Weight (Pounds): 289 General Appearance: no apparent distress, alert EENT: PERRL/EOMI, normal ENT inspection Neck: non-tender, normal alignment Cardiovascular: normal rate, regular rhythm Respiratory/Chest: decreased breath sounds Abdomen: non tender, soft Edema: trace edema Neurologic: alert, oriented x 3 Skin: normal pigmentation Cassius Sawyer Jan 07, 2019 08:08
--- NOTE | 2019-01-07 08:15 | Hematology/Onc Progress Note ---
Assessment/Plan Assessment/Plan Assessment and Recs: # Leukocytosis is likely due to steriods --> monitor steriod use --> accuchecks qac and qhs --> insulin as needed prn --> on ctx/doxy per id prn --> wbc 12-->15->17-->18-->14.3-->14-->15.2->12.6-->10.5 --> smear reviewed and no blasts noted --> HAVE ordered labs again # Anemia of iron deficiency with decreased ferritin --> No evidence of hemolysis is noted, peripheral smear has been reviewed --> Hgb goal >7. Transfuse prn. --> Iron has been ordered x 1 dose given stable hgb --> Medications have been reviewed --> low threshold for gi evaluation in case has occult + --> hgb trend 11.6-->12.2-->12.1-->12 # Salicylate overdose now improved --> Medical management for salicylate overdose --> Sodium bicarbonate --> IVF started, as per renal --> now improved # Electrolyte correction --> replace k prn basis # Resp failure --> 12/29 extubated on nc --> bipap # Dvt ppx on lovenox (01/06) The timing of this note does not necessarily reflect the time of the patient was seen. GREATLY APPRECIATE CONSULTATION. Subjective Allergies: Coded Allergies: No Known Allergies (Unverified , 11/07/13) Subjective 12/23: no events, no bleeding reported, tf held for potential extubation 12/24: icu, trach, agitated and confused, labs reviewed, abx, fentanyl 12/26: no bleeding, no chills, still on abx, fentayl, labs reviewed 12/27: dox and ctx, no bleeding sputum cultures reviewed 12/29: turned, repositioned, remains npo, labs noted 12/30: icu, restless, on abx, no signs of distress, labs reviewed, no fever 12/31: remain in icu, agitated, on seroquel, on restraints, labs reviewed 01/01: remains agitated and restless, on bipap in the icu 01/03: no bleeding, no f, c, no night sweats, no major events, labs reviewed 01/05: imaging reviewed, on olanzapine, no sob, no distress 01/06: no wheezing, a+o x3, no events, labs reviewed, seen with pain management 01/07: no f/c, no sob, no distress, a+o x4, denies pain Objective Objective Current Medications Medications (Trade) Dose Ordered Sig/Amaya Route PRN Reason Start Time Stop Time Status Last Admin Dose Admin Acetaminophen (Tylenol) 650 mg Q4H PRN ORAL FOR TEMP >100.5 01/06/19 13:30 02/05/19 13:29 Acetaminophen/ Hydrocodone Bitart ([place] 5/325) 1 tab Q4H PRN ORAL Moderate Pain (Pain Scale 4-6) 01/06/19 13:31 01/13/19 13:30 01/06/19 22:29 Clonidine HCl (Catapres Tab) 0.1 mg Q4H PRN ORAL bp over 165 syst 01/06/19 13:30 02/05/19 13:29 Dextrose (Dextrose 50%) 25 ml Q30M PRN IV Hypoglycemia 01/06/19 13:30 01/20/19 16:59 Dextrose (Dextrose 50%) 50 ml Q30M PRN IV Hypoglycemia 01/06/19 13:30 01/20/19 16:59 Diphenhydramine HCl (Benadryl) 50 mg Q6H PRN IM Restlessness 01/06/19 13:30 02/05/19 13:29 01/06/19 22:03 Docusate Sodium (Colace) 100 mg TID ORAL 01/06/19 18:00 01/27/19 20:59 01/06/19 17:27 Enoxaparin Sodium (Lovenox) 40 mg DAILY SUBQ 01/07/19 09:00 02/05/19 09:59 Haloperidol Lactate (Haldol) 5 mg Q6H PRN IM Agitation 01/06/19 13:31 02/05/19 13:30 Insulin Aspart (NovoLOG) AC+HS SUBQ 01/06/19 16:30 01/20/19 17:59 01/06/19 22:12 Lactulose (Cephulac) 20 gm THREE TIMES A DAY ORAL 01/06/19 18:00 01/30/19 17:59 Levalbuterol HCl (Xopenex) 0.63 mg Q8H PRN HHN Shortness of Breath 01/06/19 14:00 01/11/19 13:59 Methylprednisolone Sodium Succinate (Solu-MEDROL) 30 mg DAILY IVP 01/07/19 09:00 01/28/19 08:59 Olanzapine (ZyPREXA) 10 mg BID ORAL 01/06/19 18:00 01/31/19 18:44 01/06/19 17:26 Pantoprazole (Protonix) 40 mg BIAC ORAL 01/06/19 16:30 02/04/19 16:29 01/07/19 06:32 Polyethylene Glycol (Miralax) 17 gm BEDTIME ORAL 01/06/19 21:00 01/30/19 20:59 01/06/19 22:00 Polyethylene Glycol (Miralax) 17 gm DAILYPRN PRN ORAL Constipation 01/06/19 13:32 02/05/19 13:31 Last 24 Hour Vital Signs Date Time Temp Pulse Resp B/P (MAP) Pulse Ox O2 Delivery O2 Flow Rate FiO2 01/07/19 07:58 98 Nasal Cannula 2.0 28 01/07/19 04:00 89 01/07/19 04:00 98.4 118 18 138/80 (99) 96 01/07/19 00:00 98.1 109 18 127/78 (94) 96 01/07/19 00:00 110 01/06/19 21:00 Nasal Cannula 2.0 01/06/19 20:00 109 01/06/19 20:00 97.6 102 20 135/86 (102) 97 01/06/19 19:50 98 Nasal Cannula 2.0 28 01/06/19 16:00 115 01/06/19 16:00 98.4 109 19 148/78 (101) 95 01/06/19 12:00 117 01/06/19 12:00 Nasal Cannula 2.0 01/06/19 12:00 2.0 01/06/19 12:00 99.1 119 20 106/74 (85) 97 01/06/19 10:54 119 16 98 Nasal Cannula 2.0 28 111 15 96 01/06/19 08:00 98.2 109 20 106/61 (76) 99 01/06/19 08:00 2.0 01/06/19 08:00 110 01/06/19 08:00 Nasal Cannula 2.0 01/06/19 07:23 100 Nasal Cannula 2.0 28 01/06/19 04:00 2.0 01/06/19 04:00 98.1 110 20 102/71 (81) 99 01/06/19 04:00 Nasal Cannula 2.0 01/06/19 03:24 107 01/06/19 02:51 102 20 100 Nasal Cannula 2.0 28 101 19 97 01/06/19 00:00 Nasal Cannula 2.0 01/06/19 00:00 98.0 100 20 133/69 (90) 100 01/05/19 23:31 94 01/05/19 23:03 98 22 99 01/05/19 20:00 Nasal Cannula 2.0 01/05/19 20:00 99.0 110 20 132/58 (82) 100 01/05/19 20:00 102 01/05/19 20:00 2.0 01/05/19 19:15 101 24 97 Nasal Cannula 2.0 28 01/05/19 19:15 99 Nasal Cannula 2.0 28 01/05/19 16:00 105 01/05/19 16:00 2.0 01/05/19 16:00 Nasal Cannula 2.0 01/05/19 16:00 99.0 108 26 136/59 (84) 100 01/05/19 14:51 109 22 100 01/05/19 12:00 Nasal Cannula 2.0 01/05/19 12:00 112 01/05/19 12:00 2.0 01/05/19 12:00 99.2 118 26 139/79 (99) 99 01/05/19 11:09 112 24 98 Nasal Cannula 2.0 28 Intake and Output 01/06/19 01/07/19 19:00 07:00 Intake Total 680 ml 100 ml Output Total 550 ml 300 ml Balance 130 ml -200 ml Intake Oral 600 ml 100 ml IV Total 80 ml Output Urine Total 550 ml 300 ml # Voids 4 # Bowel Movements 1 2 Labs Test 01/05/19 04:00 White Blood Count 10.5 K/UL (4.8-10.8) Red Blood Count 3.89 M/UL (4.20-5.40) Hemoglobin 12.0 G/DL (12.0-16.0) Hematocrit 37.7 % (37.0-47.0) Mean Corpuscular Volume 97 FL (80-99) Mean Corpuscular Hemoglobin 30.9 PG (27.0-31.0) Mean Corpuscular Hemoglobin Concent 32.0 G/DL (32.0-36.0) Red Cell Distribution Width 13.8 % (11.6-14.8) Platelet Count 232 K/UL (150-450) Mean Platelet Volume 5.0 FL (6.5-10.1) Neutrophils (%) (Auto) 57.1 % (45.0-75.0) Lymphocytes (%) (Auto) 32.8 % (20.0-45.0) Monocytes (%) (Auto) 7.5 % (1.0-10.0) Eosinophils (%) (Auto) 1.6 % (0.0-3.0) Basophils (%) (Auto) 1.0 % (0.0-2.0) Sodium Level 146 MMOL/L (136-145) Potassium Level 3.9 MMOL/L (3.5-5.1) Chloride Level 109 MMOL/L (98-107) Carbon Dioxide Level 30 MMOL/L (21-32) Anion Gap 7 mmol/L (5-15) Blood Urea Nitrogen 13 mg/dL (7-18) Creatinine 1.0 MG/DL (0.55-1.30) Estimat Glomerular Filtration Rate > 60 mL/min (>60) Glucose Level 93 MG/DL (74-106) Calcium Level 9.1 MG/DL (8.5-10.1) Phosphorus Level 4.1 MG/DL (2.5-4.9) Magnesium Level 2.0 MG/DL (1.8-2.4) Height (Feet): 5 Height (Inches): 9.00 Weight (Pounds): 289 Objective Physical Exam General Appearance: well appearing, nad, obese Head: normocephalic ++ ogt Resp: normal breath sounds bipap++ Cardiovascular: normal rate Gastrointestinal: normal inspection, non tender, soft, normal bowel sounds, non -distended Msk: normal inspection, back normal Skin: normal inspection, normal color, no rash, warm/dry, palpation normal, well hydrated Lymphatic: normal inspection, no adenopathy Wade Bonds MD Jan 07, 2019 08:15
[2019-01-07] MEDS: Enoxaparin 40mg Inj SUBQ SCH (08:52)
[2019-01-07] MEDS: OLANZapine 10mg tab ORAL SCH ×2 (08:53→17:10)
[2019-01-07] MEDS: Solu-MEDROL 40mg Inj IVP SCH (08:53)
[2019-01-07] MEDS: Lactulose 20gm/30ml UDC ORAL SCH ×4 (08:54→17:10)
[2019-01-07] MEDS: Docusate 100mg cap ORAL SCH ×3 (08:54→17:10)
[2019-01-07] MEDS: HYDROcodone/Acetamin 5/325 tab ORAL PRN ×2 (09:40→20:29)
--- NOTE | 2019-01-07 10:20 | NUR ---
NURSE NOTES: The patient is stable without acute distress or shortness of breath. The patient had normal bowel movement. Will continue plan of care.
--- NOTE | 2019-01-07 10:21 | Pulmonolgy Critical Care Note ---
Critical Care - Asmt/Plan Assessment/Plan: Pulmonary CCM Progress Note HPI Patient is a 58-year-old woman with apparent history of Obstructive Airways Disease, Schizophrenia, Obesity, presented with shortness of breath, increased anxiety. Remains on PRN BiPAP Noted to have elevated ASA level on admission FIO2 reduced , AB per ID, Diuresing well Improving mental status, Psychiatry following, more interactive today, ST following Physical Exam Vital Signs Noted General Appearance: normal inspection, obese, awake Head: NCAT ENT: Moist mm, JVP not visible Neck: normal inspection, full range of motion, supple, no bony tend Respiratory: normal inspection, no respiratory distress, no retraction, no wheezing, reduced basal BS Cardiovascular: regular rate, rhythm, Normal HS1, HS2 Gastrointestinal: normal inspection, normal bowel sounds, non tender, soft, no guarding, no hernia Genitourinary: no CVA tenderness Musculoskeletal: normal inspection, minimal edema Neurologic: no focal signs noted, follows commands Impression: Respiratory failure - sp extubation, on PRN BiPAP Previously elevated Salicylate level Pneumonia Possible Congestive Heart Failure Salicylate overdose Schizophrenia/Psychosis Asthma Obesity Plan: Adjust FIO2, BiPAP PRN - wean as tolerated ABG CXR ID following IV Solumedrol reduced Sedation per Psychiatry Aspiration precautions, ST following HHN ISS WOUND NURSE med PRN Sedation PPX Keep negative balance - received Lasix again today ST eval Labs Noted CXR: Small R effusion vascular congestion Critical Care - Objective Last 24 Hour Vital Signs Date Time Temp Pulse Resp B/P (MAP) Pulse Ox O2 Delivery O2 Flow Rate FiO2 01/07/19 09:00 Nasal Cannula 2.0 01/07/19 09:00 Nasal Cannula 2.0 01/07/19 08:00 98.1 113 18 119/61 (80) 98 01/07/19 07:58 98 Nasal Cannula 2.0 28 01/07/19 04:00 89 01/07/19 04:00 98.4 118 18 138/80 (99) 96 01/07/19 00:00 98.1 109 18 127/78 (94) 96 01/07/19 00:00 110 01/06/19 21:00 Nasal Cannula 2.0 01/06/19 20:00 109 01/06/19 20:00 97.6 102 20 135/86 (102) 97 01/06/19 19:50 98 Nasal Cannula 2.0 28 01/06/19 16:00 115 01/06/19 16:00 98.4 109 19 148/78 (101) 95 01/06/19 12:00 117 01/06/19 12:00 Nasal Cannula 2.0 01/06/19 12:00 2.0 01/06/19 12:00 99.1 119 20 106/74 (85) 97 01/06/19 10:54 119 16 98 Nasal Cannula 2.0 28 111 15 96 Accucheck: 100 Critical Care - Subjective ROS Limited/Unobtainable: No FI02: 28 Vent Support Breath Rate: 24 Vent Support Mode: BiLevel Vent Tidal Volume: 550 Sputum Amount: None PEEP: 5.0 PIP: 14 Tube Feeding Amount: 40 I&O: Intake and Output 01/06/19 01/07/19 18:59 06:59 Intake Total 720 ml 100 ml Output Total 550 ml 300 ml Balance 170 ml -200 ml Intake Oral 600 ml 100 ml IV Total 120 ml Output Urine Total 550 ml 300 ml # Voids 4 # Bowel Movements 1 2 ET-Tube: 7.0 ET Position: 22 Kevan Monsalve MD Jan 07, 2019 10:21
[2019-01-07 12:00] VITALS: BP 141/78
--- NOTE | 2019-01-07 12:43 | GI Progress Note ---
Assessment/Plan Problems: (1) Anemia ICD Codes: D64.9 - Anemia, unspecified SNOMED: 502294913 (2) Salicylate overdose ICD Codes: T39.091A - Poisoning by salicylates, accidental (unintentional), initial encounter SNOMED: 901643041, 9463985 (3) Respiratory failure ICD Codes: J96.90 - Respiratory failure, unspecified, unspecified whether with hypoxia or hypercapnia SNOMED: 366667708 (4) Suicidal intent ICD Codes: R45.851 - Suicidal ideations SNOMED: 355407058 Status: stable Status Narrative Discussed with Dr. Saldana. Assessment/Plan No plans for GI procedures at this time, stable H&H on NC 2L Electrolyte correction OB stool r/o GI bleed monitor H&H, prn transfusions bowel regimen >> colace, miralax and lactulose ppi adv diet as tolerated fu labs The patient was seen and examined at bedside and all new and available data was reviewed in the patients chart. I agree with the above findings, impression and plan. (Patient seen earlier today. Signature stamp does not reflect patient encounter time.). - Vladimir Saldana MD Subjective Subjective limited Objective Last 24 Hour Vital Signs Date Time Temp Pulse Resp B/P (MAP) Pulse Ox O2 Delivery O2 Flow Rate FiO2 01/07/19 12:00 Nasal Cannula 2.0 01/07/19 12:00 99.0 110 18 141/78 (99) 96 01/07/19 09:00 Nasal Cannula 2.0 01/07/19 09:00 Nasal Cannula 2.0 01/07/19 08:00 98.1 113 18 119/61 (80) 98 01/07/19 08:00 114 01/07/19 07:58 98 Nasal Cannula 2.0 28 01/07/19 04:00 89 01/07/19 04:00 98.4 118 18 138/80 (99) 96 01/07/19 00:00 98.1 109 18 127/78 (94) 96 01/07/19 00:00 110 01/06/19 21:00 Nasal Cannula 2.0 01/06/19 20:00 109 01/06/19 20:00 97.6 102 20 135/86 (102) 97 01/06/19 19:50 98 Nasal Cannula 2.0 28 01/06/19 16:00 115 01/06/19 16:00 98.4 109 19 148/78 (101) 95 Intake and Output 01/06/19 01/07/19 18:59 06:59 Intake Total 720 ml 100 ml Output Total 550 ml 300 ml Balance 170 ml -200 ml Intake Oral 600 ml 100 ml IV Total 120 ml Output Urine Total 550 ml 300 ml # Voids 4 # Bowel Movements 1 2 Height (Feet): 5 Height (Inches): 9.00 Weight (Pounds): 289 General Appearance: no apparent distress Cardiovascular: normal rate Respiratory/Chest: normal breath sounds, no respiratory distress Abdominal Exam: normal bowel sounds, non tender, soft Extremities: non-tender Marc Chaudhary NP Jan 07, 2019 12:43
--- NOTE | 2019-01-07 12:50 | Infectious Diseases Prog Note ---
Assessment/Plan Assessment/Plan IMPRESSION: Sepsis or systemic inflammatory response syndrome, resolved COPD, Hypercapnic respiratory failure, Salicylate toxicity, Morbid obesity. Leukocytosis resolved Positive Urine culture, colonization RECOMMENDATION: Observe off antibiotic Taper steroids. Subjective Constitutional: Reports: no symptoms Gastrointestinal/Abdominal: Reports: no symptoms Genitourinary: Reports: no symptoms Allergies: Coded Allergies: No Known Allergies (Unverified , 11/07/13) Objective Vital Signs Last 24 Hour Vital Signs Date Time Temp Pulse Resp B/P (MAP) Pulse Ox O2 Delivery O2 Flow Rate FiO2 01/07/19 12:00 Nasal Cannula 2.0 01/07/19 12:00 99.0 110 18 141/78 (99) 96 01/07/19 09:00 Nasal Cannula 2.0 01/07/19 09:00 Nasal Cannula 2.0 01/07/19 08:00 98.1 113 18 119/61 (80) 98 01/07/19 08:00 114 01/07/19 07:58 98 Nasal Cannula 2.0 28 01/07/19 04:00 89 01/07/19 04:00 98.4 118 18 138/80 (99) 96 01/07/19 00:00 98.1 109 18 127/78 (94) 96 01/07/19 00:00 110 01/06/19 21:00 Nasal Cannula 2.0 01/06/19 20:00 109 01/06/19 20:00 97.6 102 20 135/86 (102) 97 01/06/19 19:50 98 Nasal Cannula 2.0 28 01/06/19 16:00 115 01/06/19 16:00 98.4 109 19 148/78 (101) 95 Height (Feet): 5 Height (Inches): 9.00 Weight (Pounds): 289 General Appearance: other - obese HEENT: mucous membranes moist Respiratory/Chest: lungs clear Cardiovascular: normal rate Abdomen: soft, non tender Extremities: no edema Neurologic/Psychiatric: alert, responsive Current Medications Medications (Trade) Dose Ordered Sig/Amaya Route PRN Reason Start Time Stop Time Status Last Admin Dose Admin Acetaminophen (Tylenol) 650 mg Q4H PRN ORAL FOR TEMP >100.5 01/06/19 13:30 02/05/19 13:29 Acetaminophen/ Hydrocodone Bitart ([place] 5/325) 1 tab Q4H PRN ORAL Moderate Pain (Pain Scale 4-6) 01/06/19 13:31 01/13/19 13:30 01/07/19 09:40 Clonidine HCl (Catapres Tab) 0.1 mg Q4H PRN ORAL bp over 165 syst 01/06/19 13:30 02/05/19 13:29 Dextrose (Dextrose 50%) 25 ml Q30M PRN IV Hypoglycemia 01/06/19 13:30 01/20/19 16:59 Dextrose (Dextrose 50%) 50 ml Q30M PRN IV Hypoglycemia 01/06/19 13:30 01/20/19 16:59 Diphenhydramine HCl (Benadryl) 50 mg Q6H PRN IM Restlessness 01/06/19 13:30 02/05/19 13:29 01/06/19 22:03 Docusate Sodium (Colace) 100 mg TID ORAL 01/06/19 18:00 01/27/19 20:59 01/07/19 12:30 Enoxaparin Sodium (Lovenox) 40 mg DAILY SUBQ 01/07/19 09:00 02/05/19 09:59 01/07/19 08:52 Haloperidol Lactate (Haldol) 5 mg Q6H PRN IM Agitation 01/06/19 13:31 02/05/19 13:30 Insulin Aspart (NovoLOG) AC+HS SUBQ 01/06/19 16:30 01/20/19 17:59 01/06/19 22:12 Lactulose (Cephulac) 20 gm THREE TIMES A DAY ORAL 01/06/19 18:00 01/30/19 17:59 Levalbuterol HCl (Xopenex) 0.63 mg Q8H PRN HHN Shortness of Breath 01/06/19 14:00 01/11/19 13:59 Methylprednisolone Sodium Succinate (Solu-MEDROL) 30 mg DAILY IVP 01/07/19 09:00 01/28/19 08:59 01/07/19 08:53 Olanzapine (ZyPREXA) 10 mg BID ORAL 01/06/19 18:00 01/31/19 18:44 01/07/19 08:53 Pantoprazole (Protonix) 40 mg BIAC ORAL 01/06/19 16:30 02/04/19 16:29 01/07/19 06:32 Polyethylene Glycol (Miralax) 17 gm BEDTIME ORAL 01/06/19 21:00 01/30/19 20:59 01/06/19 22:00 Polyethylene Glycol (Miralax) 17 gm DAILYPRN PRN ORAL Constipation 01/06/19 13:32 02/05/19 13:31 Nikos Martinez MD Jan 07, 2019 12:50
[2019-01-07 16:00] VITALS: BP 126/59
--- NOTE | 2019-01-07 17:34 | NUR ---
NURSE NOTES: The patient is stable without acute distress or shortness of breath. Will continue plan of care.
--- NOTE | 2019-01-07 19:11 | NUR ---
HAND-OFF: Report given to CLARENCE Jarvis. The patient is resting on the bed without acute distress or shortness of breath. The patient's bed in the lowest position, call light in reach, and fall and aspiration precaution reinforced. IV site on right wrist 22G and left wrist 22G are intact and patent. Endorsed plan of care.
--- NOTE | 2019-01-07 19:43 | NUR ---
NURSE NOTES: Received pt from CLARENCE Adair. Pt awake, alert, and c/o pain. Bed in lowest position. Call light within reach. Will continue to monitor.
[2019-01-07 20:00] VITALS: BP 132/78
[2019-01-07] MEDS: Miralax 17gm pkt ORAL SCH (20:29)
--- NOTE | 2019-01-07 21:45 | Progress Note ---
DATE: 01/07/2019 SUBJECTIVE: The patient is irritable and wants to be discharged. Poor insight. Denies any suicidal ideation. Denies that recent overdose was a suicide attempt. The patient is on her Zyprexa, taking her medication, compliant, no behavior issues. MENTAL STATUS EXAMINATION: The patient is alert and oriented times self, place, and situation. Mood is depressed. Affect constricted. Congruent with mood. Thought process is linear and goal oriented. Thought content, no suicidal or homicidal ideations. Memory, concentration, and attention is intact. ASSESSMENT: 1. Major depressive disorder. 2. Anxiety disorder. PLAN: 1. We will continue current medication. 2. Provide the patient with reality orientation and supportive therapy. Laurie Canchola M.D. DR: Edenilson JOB#: [id number] CC:
--- NOTE | 2019-01-07 22:30 | General Progress Note ---
Assessment/Plan Problem List: (1) Opioid dependence ICD Codes: F11.20 - Opioid dependence, uncomplicated SNOMED: 87019140 (2) Altered level of consciousness ICD Codes: R40.4 - Transient alteration of awareness SNOMED: 8428461 (3) Back pain ICD Codes: M54.9 - Dorsalgia, unspecified SNOMED: 546417614 (4) Opiate dependence ICD Codes: F11.20 - Opioid dependence, uncomplicated SNOMED: 47509392 (5) Depression ICD Codes: F32.9 - Major depressive disorder, single episode, unspecified SNOMED: 77980653 (6) Peripheral edema ICD Codes: R60.9 - Edema, unspecified SNOMED: 512161753 (7) Leg pain ICD Codes: M79.606 - Pain in leg, unspecified SNOMED: 35316989 (8) Headache ICD Codes: R51 - Headache SNOMED: 07524928 (9) COPD exacerbation ICD Codes: J44.1 - Chronic obstructive pulmonary disease with (acute) exacerbation SNOMED: 225190447 (10) Psychosis ICD Codes: F29 - Unsp psychosis not due to a substance or known physiol cond SNOMED: 46082493 (11) Respiratory failure ICD Codes: J96.90 - Respiratory failure, unspecified, unspecified whether with hypoxia or hypercapnia SNOMED: 987735964 (12) Salicylate overdose ICD Codes: T39.091A - Poisoning by salicylates, accidental (unintentional), initial encounter SNOMED: 747907222, 6240381 (13) Asthma ICD Codes: J45.909 - Unspecified asthma, uncomplicated SNOMED: 630721936, 4003579 (14) Anemia ICD Codes: D64.9 - Anemia, unspecified SNOMED: 298610496 Status: stable, progressing Assessment/Plan: salicylate overdose not safe to dc no wheezing asthma weak needs pt/ot no acute events reviewed chart and labs obesity afebrile psych patient Subjective ROS Limited/Unobtainable: Yes Allergies: Coded Allergies: No Known Allergies (Unverified , 11/07/13) Objective Last 24 Hour Vital Signs Date Time Temp Pulse Resp B/P (MAP) Pulse Ox O2 Delivery O2 Flow Rate FiO2 01/07/19 16:00 101 01/07/19 16:00 Nasal Cannula 2.0 01/07/19 16:00 98.1 102 18 126/59 (81) 98 01/07/19 12:00 108 01/07/19 12:00 Nasal Cannula 2.0 01/07/19 12:00 99.0 110 18 141/78 (99) 96 01/07/19 09:00 Nasal Cannula 2.0 01/07/19 09:00 Nasal Cannula 2.0 01/07/19 08:00 98.1 113 18 119/61 (80) 98 01/07/19 08:00 114 01/07/19 07:58 98 Nasal Cannula 2.0 28 01/07/19 04:00 89 01/07/19 04:00 98.4 118 18 138/80 (99) 96 01/07/19 00:00 98.1 109 18 127/78 (94) 96 01/07/19 00:00 110 Intake and Output 01/06/19 01/07/19 19:00 07:00 Intake Total 680 ml 100 ml Output Total 550 ml 300 ml Balance 130 ml -200 ml Intake Oral 600 ml 100 ml IV Total 80 ml Output Urine Total 550 ml 300 ml # Voids 4 # Bowel Movements 1 2 Height (Feet): 5 Height (Inches): 9.00 Weight (Pounds): 289 Neck: supple Cardiovascular: normal rate Abdomen: soft Jasmine Joe MD Jan 07, 2019 22:30
[2019-01-08] VITALS: BP 136/80
--- NOTE | 2019-01-08 00:59 | Cardiology Progress Note ---
Assessment/Plan Assessment/Plan LATE ENTRY NOTE Date of Encounter: 01/07/19 Time of Encounter: 21: 02 1. Sinus tachycardia, most likely due to hypoxemia, there is no need for AV carissa agents. Echo reveals normal LV systolic and diastolic fxn, LVEF at 65%. 2. Acute respiratory failure, resolved. 3. History of chronic obstructive pulmonary disease. 4. History of salicylate overdose. 5. Morbid obesity. 6. Hyperthyroidism. 7. Dyslipidemia. Subjective Subjective Sinus tachycardia at 107. On NC with FiO2 of 28%. Objective Last 24 Hour Vital Signs Date Time Temp Pulse Resp B/P (MAP) Pulse Ox O2 Delivery O2 Flow Rate FiO2 01/07/19 20:00 Nasal Cannula 2.0 01/07/19 20:00 98.9 107 18 132/78 (96) 100 01/07/19 16:00 101 01/07/19 16:00 Nasal Cannula 2.0 01/07/19 16:00 98.1 102 18 126/59 (81) 98 01/07/19 12:00 108 01/07/19 12:00 Nasal Cannula 2.0 01/07/19 12:00 99.0 110 18 141/78 (99) 96 01/07/19 09:00 Nasal Cannula 2.0 01/07/19 09:00 Nasal Cannula 2.0 01/07/19 08:00 98.1 113 18 119/61 (80) 98 01/07/19 08:00 114 01/07/19 07:58 98 Nasal Cannula 2.0 28 01/07/19 04:00 89 01/07/19 04:00 98.4 118 18 138/80 (99) 96 Intake and Output 01/07/19 01/08/19 19:00 07:00 Intake Total 560 ml Output Total 650 ml Balance -90 ml Intake Oral 560 ml Output Urine Total 650 ml # Voids 100 # Bowel Movements 4 1 2D Echo: LVEF 65%, mild LVH, RVSP 26 mmHg, Normal LV diastolic fxn Objective HEENT: Atraumatic and normocephalic. Anicteric. Pupils are equal, round, and reactive to light and accommodation. On NC oxygen. NECK: JVP cannot be assessed. No carotid bruit. CARDIOVASCULAR: Normal S1, S2. Regular rate and rhythm. No murmurs, gallops, or rubs. PMI is at fourth intercostal space in the midclavicular line. LUNGS: Diminished breath sounds in both lungs. ABDOMEN: Soft, obese. No hepatosplenomegaly. Positive bowel sounds. EXTREMITIES: No evidence of edema, clubbing, or cyanosis. Velasquez Staton MD Jan 08, 2019 00:59
[2019-01-08 04:00] VITALS: BP 133/90
[2019-01-08] MEDS: HYDROcodone/Acetamin 5/325 tab ORAL PRN ×4 (05:57→22:53)
[2019-01-08] MEDS: NovoLOG Insulin Flexpen SUBQ SCH ×4 (06:00→20:59)
--- NOTE | 2019-01-08 07:17 | NUR ---
HAND-OFF: Report given to CLARENCE Rizvi. Pt stable
[2019-01-08 08:00] VITALS: BP 145/67
--- NOTE | 2019-01-08 08:05 | NUR ---
NURSE NOTES: Received patient from Pal Jarvis. Patient awake and alert lying in bed. denies pain or discomfort. Safety precautions in place. call hawk within patients reach. side rails X2 up. bed alarm activated. instructed to call for assistance when she needed to use the commode. will anticipate and attend patients needs.
--- NOTE | 2019-01-08 08:26 | Hematology/Onc Progress Note ---
Assessment/Plan Assessment/Plan Assessment and Recs: # Leukocytosis is likely due to steriods --> monitor steriod use --> accuchecks qac and qhs --> insulin as needed prn --> on ctx/doxy per id prn --> wbc 12-->15->17-->18-->14.3-->14-->15.2->12.6-->10.5 --> smear reviewed and no blasts noted --> FROM time to time refusing labs # Anemia of iron deficiency with decreased ferritin --> No evidence of hemolysis is noted, peripheral smear has been reviewed --> Hgb goal >7. Transfuse prn. --> Iron has been ordered x 1 dose given stable hgb --> Medications have been reviewed --> low threshold for gi evaluation in case has occult + --> hgb trend 11.6-->12.2-->12.1-->12 # Salicylate overdose now improved --> Medical management for salicylate overdose --> Sodium bicarbonate --> IVF started, as per renal --> now improved # Electrolyte correction --> replace k prn basis # Resp failure --> 12/29 extubated is on nc --> bipap # Dvt ppx on lovenox (01/06) The timing of this note does not necessarily reflect the time of the patient was seen. GREATLY APPRECIATE CONSULTATION. Subjective Constitutional: Denies: no symptoms, chills, fever, malaise, weakness, other HEENT: Denies: no symptoms, eye pain, blurred vision, tearing, double vision, ear pain, ear discharge, nose pain, nose congestion, throat pain, throat swelling, mouth pain, mouth swelling, other Cardiovascular: Denies: no symptoms, chest pain, edema, irregular heart rate, lightheadedness, palpitations, syncope, other Respiratory: Denies: no symptoms, cough, shortness of breath, SOB with excertion, SOB at rest, sputum, wheezing, other Gastrointestinal/Abdominal: Denies: no symptoms, abdomen distended, abdominal pain, black stools, tarry stools, blood in stool, constipated, diarrhea, difficulty swallowing, nausea, poor appetite, poor fluid intake, rectal bleeding , vomiting, other Genitourinary: Denies: no symptoms, burning, discharge, frequency, flank pain, hematuria, incontinence, pain, urgency, other Neurologic/Psychiatric: Denies: no symptoms, anxiety, depressed, emotional problems, headache, numbness, paresthesia, pre-existing deficit, seizure, tingling, tremors, weakness, other Allergies: Coded Allergies: No Known Allergies (Unverified , 11/07/13) Subjective 12/23: no events, no bleeding reported, tf held for potential extubation 12/24: icu, trach, agitated and confused, labs reviewed, abx, fentanyl 12/26: no bleeding, no chills, still on abx, fentayl, labs reviewed 12/27: dox and ctx, no bleeding sputum cultures reviewed 12/29: turned, repositioned, remains npo, labs noted 12/30: icu, restless, on abx, no signs of distress, labs reviewed, no fever 12/31: remain in icu, agitated, on seroquel, on restraints, labs reviewed 01/01: remains agitated and restless, on bipap in the icu 01/03: no bleeding, no f, c, no night sweats, no major events, labs reviewed 01/05: imaging reviewed, on olanzapine, no sob, no distress 01/06: no wheezing, a+o x3, no events, labs reviewed, seen with pain management 01/07: no f/c, no sob, no distress, a+o x4, denies pain 01/08: awake, alert, no f/c, no major changes, no bleeding Objective Objective Current Medications Medications (Trade) Dose Ordered Sig/Amaya Route PRN Reason Start Time Stop Time Status Last Admin Dose Admin Acetaminophen (Tylenol) 650 mg Q4H PRN ORAL FOR TEMP >100.5 01/06/19 13:30 02/05/19 13:29 Acetaminophen/ Hydrocodone Bitart ([place] 5/325) 1 tab Q4H PRN ORAL Moderate Pain (Pain Scale 4-6) 01/06/19 13:31 01/13/19 13:30 01/08/19 05:57 Clonidine HCl (Catapres Tab) 0.1 mg Q4H PRN ORAL bp over 165 syst 01/06/19 13:30 02/05/19 13:29 Dextrose (Dextrose 50%) 25 ml Q30M PRN IV Hypoglycemia 01/06/19 13:30 01/20/19 16:59 Dextrose (Dextrose 50%) 50 ml Q30M PRN IV Hypoglycemia 01/06/19 13:30 01/20/19 16:59 Diphenhydramine HCl (Benadryl) 50 mg Q6H PRN IM Restlessness 01/06/19 13:30 02/05/19 13:29 01/06/19 22:03 Docusate Sodium (Colace) 100 mg TID ORAL 01/06/19 18:00 01/27/19 20:59 01/07/19 17:10 Enoxaparin Sodium (Lovenox) 40 mg DAILY SUBQ 01/07/19 09:00 02/05/19 09:59 01/07/19 08:52 Haloperidol Lactate (Haldol) 5 mg Q6H PRN IM Agitation 01/06/19 13:31 02/05/19 13:30 Insulin Aspart (NovoLOG) AC+HS SUBQ 01/06/19 16:30 01/20/19 17:59 01/07/19 20:28 Lactulose (Cephulac) 20 gm THREE TIMES A DAY ORAL 01/06/19 18:00 01/30/19 17:59 Levalbuterol HCl (Xopenex) 0.63 mg Q8H PRN HHN Shortness of Breath 01/06/19 14:00 01/11/19 13:59 Methylprednisolone Sodium Succinate (Solu-MEDROL) 30 mg DAILY IVP 01/07/19 09:00 01/28/19 08:59 01/07/19 08:53 Olanzapine (ZyPREXA) 10 mg BID ORAL 01/06/19 18:00 01/31/19 18:44 01/07/19 17:10 Pantoprazole (Protonix) 40 mg BIAC ORAL 01/06/19 16:30 02/04/19 16:29 01/08/19 05:57 Polyethylene Glycol (Miralax) 17 gm BEDTIME ORAL 01/06/19 21:00 01/30/19 20:59 01/07/19 20:29 Polyethylene Glycol (Miralax) 17 gm DAILYPRN PRN ORAL Constipation 01/06/19 13:32 02/05/19 13:31 Last 24 Hour Vital Signs Date Time Temp Pulse Resp B/P (MAP) Pulse Ox O2 Delivery O2 Flow Rate FiO2 01/08/19 04:00 97.0 91 19 133/90 (104) 98 01/08/19 04:00 Nasal Cannula 2.0 01/08/19 04:00 101 01/08/19 00:00 98.6 104 18 136/80 (98) 98 01/08/19 00:00 Nasal Cannula 2.0 01/08/19 00:00 95 01/07/19 20:00 Nasal Cannula 2.0 01/07/19 20:00 103 01/07/19 20:00 98.9 107 18 132/78 (96) 100 01/07/19 19:58 99 Nasal Cannula 2.0 28 01/07/19 16:00 101 01/07/19 16:00 Nasal Cannula 2.0 01/07/19 16:00 98.1 102 18 126/59 (81) 98 01/07/19 12:00 108 01/07/19 12:00 Nasal Cannula 2.0 01/07/19 12:00 99.0 110 18 141/78 (99) 96 01/07/19 09:00 Nasal Cannula 2.0 01/07/19 09:00 Nasal Cannula 2.0 01/07/19 08:00 98.1 113 18 119/61 (80) 98 01/07/19 08:00 114 01/07/19 07:58 98 Nasal Cannula 2.0 28 01/07/19 04:00 89 01/07/19 04:00 98.4 118 18 138/80 (99) 96 01/07/19 00:00 98.1 109 18 127/78 (94) 96 01/07/19 00:00 110 01/06/19 21:00 Nasal Cannula 2.0 01/06/19 20:00 109 01/06/19 20:00 97.6 102 20 135/86 (102) 97 01/06/19 19:50 98 Nasal Cannula 2.0 28 01/06/19 16:00 115 01/06/19 16:00 98.4 109 19 148/78 (101) 95 01/06/19 12:00 117 01/06/19 12:00 Nasal Cannula 2.0 01/06/19 12:00 2.0 01/06/19 12:00 99.1 119 20 106/74 (85) 97 01/06/19 10:54 119 16 98 Nasal Cannula 2.0 28 111 15 96 Intake and Output 01/07/19 01/08/19 19:00 07:00 Intake Total 560 ml Output Total 650 ml Balance -90 ml Intake Oral 560 ml Output Urine Total 650 ml # Voids 100 5 # Bowel Movements 4 4 Height (Feet): 5 Height (Inches): 9.00 Weight (Pounds): 301 Objective Physical Exam General Appearance: well appearing, nad, obese Head: normocephalic ++ ogt Resp: normal breath sounds bipap++ Cardiovascular: normal rate Gastrointestinal: normal inspection, non tender, soft, normal bowel sounds, non -distended Msk: normal inspection, back normal Skin: normal inspection, normal color, no rash, warm/dry, palpation normal, well hydrated Lymphatic: normal inspection, no adenopathy Wade Bonds MD Jan 08, 2019 08:26
[2019-01-08 08:43] LABS: BASOPHILS % (AUTO) 1.3 % (0.0-2.0); EOSINOPHILS % (AUTO) 0.7 % (0.0-3.0); HEMATOCRIT 36.5 % (37.0-47.0); HEMOGLOBIN 11.6 G/DL (12.0-16.0); LYMPHOCYTES % (AUTO) 34.6 % (20.0-45.0); MEAN CORPUSCULAR VOLUME 98 FL (80-99); NEUTROPHILS % (AUTO) 57.4 % (45.0-75.0); PLATELET COUNT 195 K/UL (150-450); RED BLOOD COUNT 3.75 M/UL (4.20-5.40); RED CELL DISTRIBUTION WIDTH 14.3 % (11.6-14.8)
[2019-01-08 09:09] LABS: ALANINE AMINOTRANSFERASE 40 U/L (12-78); ALBUMIN 2.6 G/DL (3.4-5.0); ALBUMIN/GLOBULIN RATIO 0.8 (1.0-2.7); ALKALINE PHOSPHATASE 67 U/L (46-116); ANION GAP 9 mmol/L (5-15); ASPARTATE AMINO TRANSFERASE 16 U/L (15-37); BILIRUBIN,TOTAL 0.2 MG/DL (0.2-1.0); BLOOD UREA NITROGEN 13 mg/dL (7-18); CALCIUM 8.5 MG/DL (8.5-10.1); CARBON DIOXIDE 27 MMOL/L (21-32); CHLORIDE 111 MMOL/L (98-107); CREATININE 0.9 MG/DL (0.55-1.30); POTASSIUM 3.6 MMOL/L (3.5-5.1); SODIUM 147 MMOL/L (136-145)
[2019-01-08] MEDS: OLANZapine 10mg tab ORAL SCH ×2 (09:20→17:35)
[2019-01-08] MEDS: Docusate 100mg cap ORAL SCH ×3 (09:20→17:34)
[2019-01-08] MEDS: Solu-MEDROL 40mg Inj IVP SCH (09:21)
[2019-01-08] MEDS: Lactulose 20gm/30ml UDC ORAL SCH ×3 (09:21→17:35)
[2019-01-08] MEDS: Enoxaparin 40mg Inj SUBQ SCH (09:23)
--- NOTE | 2019-01-08 10:37 | General Progress Note ---
Assessment/Plan Problem List: (1) Opioid dependence ICD Codes: F11.20 - Opioid dependence, uncomplicated SNOMED: 14662604 (2) Suicidal behavior ICD Codes: F48.9 - Nonpsychotic mental disorder, unspecified SNOMED: 230063628 (3) Viral pharyngitis ICD Codes: J02.9 - Acute pharyngitis, unspecified SNOMED: 4140724 (4) Medication overdose ICD Codes: T50.901A - Poisoning by unspecified drugs, medicaments and biological substances, accidental (unintentional), initial encounter SNOMED: 83594401 (5) Psychosis ICD Codes: F29 - Unsp psychosis not due to a substance or known physiol cond SNOMED: 08185236 (6) Respiratory failure ICD Codes: J96.90 - Respiratory failure, unspecified, unspecified whether with hypoxia or hypercapnia SNOMED: 007406734 (7) Asthma ICD Codes: J45.909 - Unspecified asthma, uncomplicated SNOMED: 951190626, 7168415 (8) Salicylate overdose ICD Codes: T39.091A - Poisoning by salicylates, accidental (unintentional), initial encounter SNOMED: 914707300, 7204733 (9) Anemia ICD Codes: D64.9 - Anemia, unspecified SNOMED: 171029951 (10) Suicidal intent ICD Codes: R45.851 - Suicidal ideations SNOMED: 215592177 (11) Obesity ICD Codes: E66.9 - Obesity, unspecified SNOMED: 117501668, 289374962 (12) Hypokalemia ICD Codes: E87.6 - Hypokalemia SNOMED: 12999994 (13) Rhabdomyolysis ICD Codes: M62.82 - Rhabdomyolysis SNOMED: 822550885 (14) Opioid dependence ICD Codes: F11.20 - Opioid dependence, uncomplicated SNOMED: 23436655 (15) Back pain ICD Codes: M54.9 - Dorsalgia, unspecified SNOMED: 291399334 (16) Depression ICD Codes: F32.9 - Major depressive disorder, single episode, unspecified SNOMED: 58192885 (17) Headache ICD Codes: R51 - Headache SNOMED: 78975262 (18) Leg pain ICD Codes: M79.606 - Pain in leg, unspecified SNOMED: 45644457 (19) Opiate dependence ICD Codes: F11.20 - Opioid dependence, uncomplicated SNOMED: 94032079 (20) Peripheral edema ICD Codes: R60.9 - Edema, unspecified SNOMED: 121582665 (21) Altered level of consciousness ICD Codes: R40.4 - Transient alteration of awareness SNOMED: 8612334 (22) COPD exacerbation ICD Codes: J44.1 - Chronic obstructive pulmonary disease with (acute) exacerbation SNOMED: 813890484 Status: stable, progressing Assessment/Plan: o2 pulm tx abx pain control cbc bmp am Subjective Constitutional: Reports: weakness Allergies: Coded Allergies: No Known Allergies (Unverified , 11/07/13) All Systems: reviewed and negative except above Subjective o2nc sleepy Objective Last 24 Hour Vital Signs Date Time Temp Pulse Resp B/P (MAP) Pulse Ox O2 Delivery O2 Flow Rate FiO2 01/08/19 08:00 97.9 114 23 145/67 (93) 94 01/08/19 07:00 97.0 01/08/19 04:00 97.0 91 19 133/90 (104) 98 01/08/19 04:00 Nasal Cannula 2.0 01/08/19 04:00 101 01/08/19 00:00 98.6 104 18 136/80 (98) 98 01/08/19 00:00 Nasal Cannula 2.0 01/08/19 00:00 95 01/07/19 20:00 Nasal Cannula 2.0 01/07/19 20:00 103 01/07/19 20:00 98.9 107 18 132/78 (96) 100 01/07/19 19:58 99 Nasal Cannula 2.0 28 01/07/19 16:00 101 01/07/19 16:00 Nasal Cannula 2.0 01/07/19 16:00 98.1 102 18 126/59 (81) 98 01/07/19 12:00 108 01/07/19 12:00 Nasal Cannula 2.0 01/07/19 12:00 99.0 110 18 141/78 (99) 96 Intake and Output 01/07/19 01/08/19 19:00 07:00 Intake Total 560 ml Output Total 650 ml Balance -90 ml Intake Oral 560 ml Output Urine Total 650 ml # Voids 100 5 # Bowel Movements 4 4 Laboratory Tests 01/08/19 08:17: Sodium Level 147H, Potassium Level 3.6, Chloride Level 111H, Carbon Dioxide Level 27, Anion Gap 9, Blood Urea Nitrogen 13, Creatinine 0.9, Estimat Glomerular Filtration Rate > 60, Glucose Level 148H, Calcium Level 8.5, Phosphorus Level 3.0, Magnesium Level 1.7L, Total Bilirubin 0.2, Aspartate Amino Transf (AST/SGOT) 16, Alanine Aminotransferase (ALT/SGPT) 40, Alkaline Phosphatase 67, Total Protein 5.9L, Albumin 2.6L, Globulin 3.3, Albumin/ Globulin Ratio 0.8L 01/08/19 08:25: White Blood Count 12.0H, Red Blood Count 3.75L, Hemoglobin 11.6L, Hematocrit 36.5L, Mean Corpuscular Volume 98, Mean Corpuscular Hemoglobin 31.0, Mean Corpuscular Hemoglobin Concent 31.8L, Red Cell Distribution Width 14.3, Platelet Count 195, Mean Platelet Volume 5.7L, Neutrophils (%) (Auto) 57.4, Lymphocytes (%) (Auto) 34.6, Monocytes (%) (Auto) 6.0, Eosinophils (%) (Auto) 0.7, Basophils (%) (Auto) 1.3 Height (Feet): 5 Height (Inches): 9.00 Weight (Pounds): 301 General Appearance: lethargic EENT: normal ENT inspection Neck: normal alignment Cardiovascular: normal peripheral pulses, normal rate, regular rhythm Respiratory/Chest: chest wall non-tender, lungs clear, normal breath sounds Abdomen: normal bowel sounds, non tender, soft Extremities: normal inspection Edema: no edema noted Arm (L), no edema noted Arm (R), no edema noted Leg (L), no edema noted Leg (R), no edema noted Pedal (L), no edema noted Pedal (R), no edema noted Generalized Neurologic: motor weakness Skin: normal pigmentation, warm/dry Orlando Chanel DO Jan 08, 2019 10:36
[2019-01-08 12:00] VITALS: BP 128/70
--- NOTE | 2019-01-08 12:00 | Nephrology Progress Note ---
Assessment/Plan Status: stable, progressing Assessment/Plan: A/P 1) s/p Acidosis resolved Respiratory failure 2) Salicylate overdose- resolved Psychosis 3) HypoMg- will replace 1 gm today taper steroids as possible Resp management per Dr Monsalve monitor renal parameters Subjective Date patient seen: Jan 08, 2019 Time patient seen: 11:57 ROS Limited/Unobtainable: No Allergies: Coded Allergies: No Known Allergies (Unverified , 11/07/13) Subjective In no distress. feeling much better Objective Last 24 Hour Vital Signs Date Time Temp Pulse Resp B/P (MAP) Pulse Ox O2 Delivery O2 Flow Rate FiO2 01/08/19 09:00 Nasal Cannula 2.0 01/08/19 08:00 97.9 114 23 145/67 (93) 94 01/08/19 08:00 91 01/08/19 07:00 97.0 01/08/19 04:00 97.0 91 19 133/90 (104) 98 01/08/19 04:00 Nasal Cannula 2.0 01/08/19 04:00 101 01/08/19 00:00 98.6 104 18 136/80 (98) 98 01/08/19 00:00 Nasal Cannula 2.0 01/08/19 00:00 95 01/07/19 20:00 Nasal Cannula 2.0 01/07/19 20:00 103 01/07/19 20:00 98.9 107 18 132/78 (96) 100 01/07/19 19:58 99 Nasal Cannula 2.0 28 01/07/19 16:00 101 01/07/19 16:00 Nasal Cannula 2.0 01/07/19 16:00 98.1 102 18 126/59 (81) 98 01/07/19 12:00 108 01/07/19 12:00 Nasal Cannula 2.0 01/07/19 12:00 99.0 110 18 141/78 (99) 96 Intake and Output 01/07/19 01/08/19 19:00 07:00 Intake Total 560 ml Output Total 650 ml Balance -90 ml Intake Oral 560 ml Output Urine Total 650 ml # Voids 100 5 # Bowel Movements 4 4 Laboratory Tests 01/08/19 08:17: Sodium Level 147H, Potassium Level 3.6, Chloride Level 111H, Carbon Dioxide Level 27, Anion Gap 9, Blood Urea Nitrogen 13, Creatinine 0.9, Estimat Glomerular Filtration Rate > 60, Glucose Level 148H, Calcium Level 8.5, Phosphorus Level 3.0, Magnesium Level 1.7L, Total Bilirubin 0.2, Aspartate Amino Transf (AST/SGOT) 16, Alanine Aminotransferase (ALT/SGPT) 40, Alkaline Phosphatase 67, Total Protein 5.9L, Albumin 2.6L, Globulin 3.3, Albumin/ Globulin Ratio 0.8L 01/08/19 08:25: White Blood Count 12.0H, Red Blood Count 3.75L, Hemoglobin 11.6L, Hematocrit 36.5L, Mean Corpuscular Volume 98, Mean Corpuscular Hemoglobin 31.0, Mean Corpuscular Hemoglobin Concent 31.8L, Red Cell Distribution Width 14.3, Platelet Count 195, Mean Platelet Volume 5.7L, Neutrophils (%) (Auto) 57.4, Lymphocytes (%) (Auto) 34.6, Monocytes (%) (Auto) 6.0, Eosinophils (%) (Auto) 0.7, Basophils (%) (Auto) 1.3 Height (Feet): 5 Height (Inches): 9.00 Weight (Pounds): 301 General Appearance: no apparent distress, alert EENT: normal ENT inspection Neck: normal alignment, supple Cardiovascular: normal rate, regular rhythm Respiratory/Chest: lungs clear, normal breath sounds Abdomen: non tender, soft Edema: no edema noted Arm (L), no edema noted Arm (R), no edema noted Leg (L), no edema noted Leg (R), no edema noted Pedal (L), no edema noted Pedal (R), no edema noted Generalized Marc Anne MD Jan 08, 2019 12:00
[2019-01-08] MEDS: DiphenhydrAMINE 50mg/ml Inj IM PRN (13:53)
[2019-01-08] MEDS ORDERED: D5 1/2NS 1000ml IV ONE ×2 (14:30→15:09)
--- NOTE | 2019-01-08 14:31 | Pulmonolgy Critical Care Note ---
Critical Care - Asmt/Plan Assessment/Plan: Pulmonary CCM Progress Note HPI Patient is a 58-year-old woman with apparent history of Obstructive Airways Disease, Schizophrenia, Obesity, presented with shortness of breath, increased anxiety. Remains on PRN BiPAP Noted to have elevated ASA level on admission FIO2 reduced , AB per ID, Diuresing well Improving mental status, Psychiatry following, more interactive today, ST following No new complaints, denies SOB Physical Exam Vital Signs Noted General Appearance: normal inspection, obese, awake Head: NCAT ENT: Moist mm, JVP not visible Neck: normal inspection, full range of motion, supple, no bony tend Respiratory: normal inspection, no respiratory distress, no retraction, no wheezing, reduced basal BS Cardiovascular: regular rate, rhythm, Normal HS1, HS2 Gastrointestinal: normal inspection, normal bowel sounds, non tender, soft, no guarding, no hernia Genitourinary: no CVA tenderness Musculoskeletal: normal inspection, minimal edema Neurologic: no focal signs noted, follows commands Impression: Respiratory failure - sp extubation, on PRN BiPAP Previously elevated Salicylate level Pneumonia Possible Congestive Heart Failure Salicylate overdose Schizophrenia/Psychosis Asthma Obesity Plan: Adjust FIO2, BiPAP PRN - wean as tolerated ABG CXR ID following IV Solumedrol reduced Sedation per Psychiatry Aspiration precautions, ST following [facility] [employer] med PRN Sedation PPX Keep negative balance - received Lasix again today ST eval Labs Noted CXR: Small R effusion vascular congestion Critical Care - Objective Last 24 Hour Vital Signs Date Time Temp Pulse Resp B/P (MAP) Pulse Ox O2 Delivery O2 Flow Rate FiO2 01/08/19 12:00 Nasal Cannula 2.0 01/08/19 12:00 100.0 95 23 128/70 (89) 94 01/08/19 12:00 104 01/08/19 11:58 100.0 01/08/19 09:00 Nasal Cannula 2.0 01/08/19 08:40 98 Nasal Cannula 2.0 28 01/08/19 08:00 97.9 114 23 145/67 (93) 94 01/08/19 08:00 91 01/08/19 04:00 97.0 91 19 133/90 (104) 98 01/08/19 04:00 Nasal Cannula 2.0 01/08/19 04:00 101 01/08/19 00:00 98.6 104 18 136/80 (98) 98 01/08/19 00:00 Nasal Cannula 2.0 01/08/19 00:00 95 01/07/19 20:00 Nasal Cannula 2.0 01/07/19 20:00 103 01/07/19 20:00 98.9 107 18 132/78 (96) 100 01/07/19 19:58 99 Nasal Cannula 2.0 28 01/07/19 16:00 101 01/07/19 16:00 Nasal Cannula 2.0 01/07/19 16:00 98.1 102 18 126/59 (81) 98 Accucheck: 121 Critical Care - Subjective ROS Limited/Unobtainable: No FI02: 28 Vent Support Breath Rate: 24 Vent Support Mode: BiLevel Vent Tidal Volume: 550 Sputum Amount: None PEEP: 5.0 PIP: 14 Tube Feeding Amount: 40 I&O: Intake and Output 01/07/19 01/08/19 18:59 06:59 Intake Total 560 ml Output Total 650 ml Balance -90 ml Intake Oral 560 ml Output Urine Total 650 ml # Voids 100 5 # Bowel Movements 4 4 ET-Tube: 7.0 ET Position: 22 Kevan Monsalve MD Jan 08, 2019 14:31
[2019-01-08 16:00] VITALS: BP 106/65
--- NOTE | 2019-01-08 19:29 | NUR ---
NURSE NOTES: Received patient from CLARENCE Ag. Patient was asleep. Bed in lowest position with call light within reach. Will continue to monitor.
--- NOTE | 2019-01-08 19:49 | NUR ---
NURSE NOTES: Paged Dr. Joe about high sodium and low albumin, awaiting call back.
--- NOTE | 2019-01-08 19:52 | NUR ---
HAND-OFF: Report given to Pal Jarvis.Plan of care endorsed.
[2019-01-08 20:00] VITALS: BP 141/62
[2019-01-08] MEDS: Miralax 17gm pkt ORAL SCH (21:00)
[2019-01-09] VITALS: BP 144/65
[2019-01-09] MEDS: HYDROcodone/Acetamin 5/325 tab ORAL PRN ×4 (06:00→21:30)
[2019-01-09] MEDS: NovoLOG Insulin Flexpen SUBQ SCH ×4 (06:01→21:38)
[2019-01-09 07:09] LABS: BASOPHILS % (AUTO) 1.7 % (0.0-2.0); EOSINOPHILS % (AUTO) 0.8 % (0.0-3.0); HEMATOCRIT 34.6 % (37.0-47.0); LYMPHOCYTES % (AUTO) 33.8 % (20.0-45.0); MEAN CORPUSCULAR VOLUME 97 FL (80-99); MONOCYTES % (AUTO) 6.4 % (1.0-10.0); NEUTROPHILS % (AUTO) 57.2 % (45.0-75.0); PLATELET COUNT 192 K/UL (150-450); RED BLOOD COUNT 3.57 M/UL (4.20-5.40); RED CELL DISTRIBUTION WIDTH 13.8 % (11.6-14.8)
[2019-01-09 07:16] LABS: ANION GAP 5 mmol/L (5-15); BLOOD UREA NITROGEN 15 mg/dL (7-18); CALCIUM 8.8 MG/DL (8.5-10.1); CARBON DIOXIDE 29 MMOL/L (21-32); CHLORIDE 110 MMOL/L (98-107); CREATININE 1.1 MG/DL (0.55-1.30); POTASSIUM 3.8 MMOL/L (3.5-5.1); SODIUM 144 MMOL/L (136-145)
--- NOTE | 2019-01-09 07:25 | NUR ---
HAND-OFF: Report given to CLARENCE Ag. Patient stable.
--- NOTE | 2019-01-09 07:49 | NUR ---
NURSE NOTES: Received patient from Pal Jarvis. Patient is in bed awake and alert, eating her breakfast bed on fowlers position. Safety precautions in place. Call light within patients reach. will monitor.
[2019-01-09 08:00] VITALS: BP 135/71
[2019-01-09] MEDS: Lactulose 20gm/30ml UDC ORAL SCH ×3 (09:00→18:00)
[2019-01-09] MEDS: OLANZapine 10mg tab ORAL SCH ×2 (09:08→17:23)
[2019-01-09] MEDS: Docusate 100mg cap ORAL SCH ×3 (09:08→18:00)
[2019-01-09] MEDS: Enoxaparin 40mg Inj SUBQ SCH (09:09)
[2019-01-09] MEDS: Solu-MEDROL 40mg Inj IVP SCH (09:20)
--- NOTE | 2019-01-09 10:35 | General Progress Note ---
Assessment/Plan Problem List: (1) Opioid dependence ICD Codes: F11.20 - Opioid dependence, uncomplicated SNOMED: 55564695 (2) Suicidal behavior ICD Codes: F48.9 - Nonpsychotic mental disorder, unspecified SNOMED: 171293303 (3) Viral pharyngitis ICD Codes: J02.9 - Acute pharyngitis, unspecified SNOMED: 2075306 (4) Medication overdose ICD Codes: T50.901A - Poisoning by unspecified drugs, medicaments and biological substances, accidental (unintentional), initial encounter SNOMED: 43870571 (5) Psychosis ICD Codes: F29 - Unsp psychosis not due to a substance or known physiol cond SNOMED: 55900312 (6) Respiratory failure ICD Codes: J96.90 - Respiratory failure, unspecified, unspecified whether with hypoxia or hypercapnia SNOMED: 842886504 (7) Asthma ICD Codes: J45.909 - Unspecified asthma, uncomplicated SNOMED: 815435362, 7137317 (8) Salicylate overdose ICD Codes: T39.091A - Poisoning by salicylates, accidental (unintentional), initial encounter SNOMED: 248579455, 1331781 (9) Anemia ICD Codes: D64.9 - Anemia, unspecified SNOMED: 808509097 (10) Suicidal intent ICD Codes: R45.851 - Suicidal ideations SNOMED: 985895934 (11) Obesity ICD Codes: E66.9 - Obesity, unspecified SNOMED: 693274735, 419515943 (12) Hypokalemia ICD Codes: E87.6 - Hypokalemia SNOMED: 10537410 (13) Rhabdomyolysis ICD Codes: M62.82 - Rhabdomyolysis SNOMED: 948525428 (14) Opioid dependence ICD Codes: F11.20 - Opioid dependence, uncomplicated SNOMED: 18279375 (15) Back pain ICD Codes: M54.9 - Dorsalgia, unspecified SNOMED: 618250959 (16) Depression ICD Codes: F32.9 - Major depressive disorder, single episode, unspecified SNOMED: 57609891 (17) Headache ICD Codes: R51 - Headache SNOMED: 13346400 (18) Leg pain ICD Codes: M79.606 - Pain in leg, unspecified SNOMED: 09393287 (19) Opiate dependence ICD Codes: F11.20 - Opioid dependence, uncomplicated SNOMED: 46342896 (20) Peripheral edema ICD Codes: R60.9 - Edema, unspecified SNOMED: 415778332 (21) Altered level of consciousness ICD Codes: R40.4 - Transient alteration of awareness SNOMED: 7650748 (22) COPD exacerbation ICD Codes: J44.1 - Chronic obstructive pulmonary disease with (acute) exacerbation SNOMED: 719166963 Status: stable, progressing Assessment/Plan: o2 pulm tx abx pain control cbc bmp am Subjective Constitutional: Reports: weakness Allergies: Coded Allergies: No Known Allergies (Unverified , 11/07/13) All Systems: reviewed and negative except above Subjective o2nc sleepy Objective Last 24 Hour Vital Signs Date Time Temp Pulse Resp B/P (MAP) Pulse Ox O2 Delivery O2 Flow Rate FiO2 01/09/19 09:43 98.6 01/09/19 07:01 96 22 97 Room Air 21 01/09/19 07:01 Room Air 21 01/09/19 04:00 Nasal Cannula 2.0 01/09/19 04:00 96 01/09/19 00:00 93 01/09/19 00:00 98.6 95 19 144/65 (91) 96 01/09/19 00:00 Nasal Cannula 2.0 01/08/19 20:00 98.4 98 19 141/62 (88) 97 01/08/19 20:00 Nasal Cannula 2.0 01/08/19 20:00 93 01/08/19 19:47 97 Nasal Cannula 2.0 28 01/08/19 18:10 98.4 01/08/19 17:43 86 22 94 Nasal Cannula 2.0 28 01/08/19 16:00 Nasal Cannula 2.0 01/08/19 16:00 105 01/08/19 16:00 98.4 84 20 106/65 (79) 97 01/08/19 12:00 Nasal Cannula 2.0 01/08/19 12:00 100.0 95 23 128/70 (89) 94 01/08/19 12:00 104 Intake and Output 01/08/19 01/09/19 19:00 07:00 Intake Total 320 ml 240 ml Balance 320 ml 240 ml Intake Oral 320 ml 240 ml # Voids 5 2 # Bowel Movements 3 4 Laboratory Tests 01/09/19 06:15: White Blood Count 12.0H, Red Blood Count 3.57L, Hemoglobin 11.0L, Hematocrit 34.6L, Mean Corpuscular Volume 97, Mean Corpuscular Hemoglobin 31.0, Mean Corpuscular Hemoglobin Concent 31.9L, Red Cell Distribution Width 13.8, Platelet Count 192, Mean Platelet Volume 5.5L, Neutrophils (%) (Auto) 57.2, Lymphocytes (%) (Auto) 33.8, Monocytes (%) (Auto) 6.4, Eosinophils (%) (Auto) 0.8, Basophils (%) (Auto) 1.7, Sodium Level 144, Potassium Level 3.8, Chloride Level 110H, Carbon Dioxide Level 29, Anion Gap 5, Blood Urea Nitrogen 15, Creatinine 1.1, Estimat Glomerular Filtration Rate > 60, Glucose Level 100, Calcium Level 8.8 Height (Feet): 5 Height (Inches): 9.00 Weight (Pounds): 308 General Appearance: lethargic EENT: normal ENT inspection Neck: normal alignment Cardiovascular: normal peripheral pulses, normal rate, regular rhythm Respiratory/Chest: chest wall non-tender, lungs clear, normal breath sounds Abdomen: normal bowel sounds, non tender, soft Extremities: normal inspection Edema: no edema noted Arm (L), no edema noted Arm (R), no edema noted Leg (L), no edema noted Leg (R), no edema noted Pedal (L), no edema noted Pedal (R), no edema noted Generalized Neurologic: motor weakness Skin: normal pigmentation, warm/dry Orlando Chanel DO Jan 09, 2019 10:35
--- NOTE | 2019-01-09 10:50 | Nephrology Progress Note ---
Assessment/Plan Status: stable, progressing Assessment/Plan: A/P 1) s/p Acidosis resolved Respiratory failure resolved Sleeping well 2) Salicylate overdose- resolved Psychosis 3) E- ABN- corrected taper steroids as possible Resp management per Dr Monsalve monitor renal parameters Subjective Date patient seen: Jan 09, 2019 Time patient seen: 10:49 ROS Limited/Unobtainable: No Allergies: Coded Allergies: No Known Allergies (Unverified , 11/07/13) Subjective In no distress resting well Objective Last 24 Hour Vital Signs Date Time Temp Pulse Resp B/P (MAP) Pulse Ox O2 Delivery O2 Flow Rate FiO2 01/09/19 09:43 98.6 01/09/19 09:00 Nasal Cannula 2.0 01/09/19 08:00 98.2 107 23 135/71 (92) 94 01/09/19 07:01 96 22 97 Room Air 21 01/09/19 07:01 Room Air 21 01/09/19 04:00 Nasal Cannula 2.0 01/09/19 04:00 96 01/09/19 00:00 93 01/09/19 00:00 98.6 95 19 144/65 (91) 96 01/09/19 00:00 Nasal Cannula 2.0 01/08/19 20:00 98.4 98 19 141/62 (88) 97 01/08/19 20:00 Nasal Cannula 2.0 01/08/19 20:00 93 01/08/19 19:47 97 Nasal Cannula 2.0 28 01/08/19 18:10 98.4 01/08/19 17:43 86 22 94 Nasal Cannula 2.0 28 01/08/19 16:00 Nasal Cannula 2.0 01/08/19 16:00 105 01/08/19 16:00 98.4 84 20 106/65 (79) 97 01/08/19 12:00 Nasal Cannula 2.0 01/08/19 12:00 100.0 95 23 128/70 (89) 94 01/08/19 12:00 104 Intake and Output 01/08/19 01/09/19 19:00 07:00 Intake Total 320 ml 240 ml Balance 320 ml 240 ml Intake Oral 320 ml 240 ml # Voids 5 2 # Bowel Movements 3 4 Laboratory Tests 01/09/19 06:15: White Blood Count 12.0H, Red Blood Count 3.57L, Hemoglobin 11.0L, Hematocrit 34.6L, Mean Corpuscular Volume 97, Mean Corpuscular Hemoglobin 31.0, Mean Corpuscular Hemoglobin Concent 31.9L, Red Cell Distribution Width 13.8, Platelet Count 192, Mean Platelet Volume 5.5L, Neutrophils (%) (Auto) 57.2, Lymphocytes (%) (Auto) 33.8, Monocytes (%) (Auto) 6.4, Eosinophils (%) (Auto) 0.8, Basophils (%) (Auto) 1.7, Sodium Level 144, Potassium Level 3.8, Chloride Level 110H, Carbon Dioxide Level 29, Anion Gap 5, Blood Urea Nitrogen 15, Creatinine 1.1, Estimat Glomerular Filtration Rate > 60, Glucose Level 100, Calcium Level 8.8 Height (Feet): 5 Height (Inches): 9.00 Weight (Pounds): 308 General Appearance: no apparent distress EENT: normal ENT inspection Neck: normal alignment, supple Cardiovascular: normal rate, regular rhythm Respiratory/Chest: lungs clear, normal breath sounds Abdomen: non tender, soft Edema: no edema noted Arm (L), no edema noted Arm (R), no edema noted Leg (L), no edema noted Leg (R), no edema noted Pedal (L), no edema noted Pedal (R), no edema noted Generalized Marc Anne MD Jan 09, 2019 10:50
--- NOTE | 2019-01-09 11:13 | General Progress Note ---
Assessment/Plan Assessment/Plan: (1) Lumbar Spondylolisthesis (2) Lumbar Herniated disc (3) Lumbar Radiculopathy (4) Lumbar DDD (5) Lumbar Spondylosis Patient will be continued on [place] D/w Dr. Chappell and he concurred. Subjective Date patient seen: Jan 09, 2019 Time patient seen: 11:00 - am Constitutional: Reports: weakness HEENT: Reports: no symptoms Cardiovascular: Reports: no symptoms Respiratory: Reports: no symptoms Gastrointestinal/Abdominal: Reports: no symptoms Genitourinary: Reports: no symptoms Neurologic/Psychiatric: Reports: weakness Endocrine: Reports: no symptoms Hematologic/Lymphatic: Reports: no symptoms Allergies: Coded Allergies: No Known Allergies (Unverified , 11/07/13) Subjective Patient reports that her pain is at a moderate level and tolerated on the [place]. Pain can be severe with movement and has requested 5 doses of [place] in the last 24hrs. No new complaints at this time. Objective Last 24 Hour Vital Signs Date Time Temp Pulse Resp B/P (MAP) Pulse Ox O2 Delivery O2 Flow Rate FiO2 01/09/19 09:43 98.6 01/09/19 09:00 Nasal Cannula 2.0 01/09/19 08:00 110 01/09/19 08:00 98.2 107 23 135/71 (92) 94 01/09/19 07:01 96 22 97 Room Air 21 01/09/19 07:01 Room Air 21 01/09/19 04:00 Nasal Cannula 2.0 01/09/19 04:00 96 01/09/19 00:00 93 01/09/19 00:00 98.6 95 19 144/65 (91) 96 01/09/19 00:00 Nasal Cannula 2.0 01/08/19 20:00 98.4 98 19 141/62 (88) 97 01/08/19 20:00 Nasal Cannula 2.0 01/08/19 20:00 93 01/08/19 19:47 97 Nasal Cannula 2.0 28 01/08/19 18:10 98.4 01/08/19 17:43 86 22 94 Nasal Cannula 2.0 28 01/08/19 16:00 Nasal Cannula 2.0 01/08/19 16:00 105 01/08/19 16:00 98.4 84 20 106/65 (79) 97 01/08/19 12:00 Nasal Cannula 2.0 01/08/19 12:00 100.0 95 23 128/70 (89) 94 01/08/19 12:00 104 Intake and Output 01/08/19 01/09/19 19:00 07:00 Intake Total 320 ml 240 ml Balance 320 ml 240 ml Intake Oral 320 ml 240 ml # Voids 5 2 # Bowel Movements 3 4 Laboratory Tests 01/09/19 06:15: White Blood Count 12.0H, Red Blood Count 3.57L, Hemoglobin 11.0L, Hematocrit 34.6L, Mean Corpuscular Volume 97, Mean Corpuscular Hemoglobin 31.0, Mean Corpuscular Hemoglobin Concent 31.9L, Red Cell Distribution Width 13.8, Platelet Count 192, Mean Platelet Volume 5.5L, Neutrophils (%) (Auto) 57.2, Lymphocytes (%) (Auto) 33.8, Monocytes (%) (Auto) 6.4, Eosinophils (%) (Auto) 0.8, Basophils (%) (Auto) 1.7, Sodium Level 144, Potassium Level 3.8, Chloride Level 110H, Carbon Dioxide Level 29, Anion Gap 5, Blood Urea Nitrogen 15, Creatinine 1.1, Estimat Glomerular Filtration Rate > 60, Glucose Level 100, Calcium Level 8.8 Height (Feet): 5 Height (Inches): 9.00 Weight (Pounds): 308 General Appearance: no apparent distress, alert EENT: PERRL/EOMI, normal ENT inspection Neck: non-tender, normal alignment Cardiovascular: normal rate, regular rhythm Respiratory/Chest: decreased breath sounds Abdomen: non tender, soft Extremities: non-tender Edema: no edema noted Generalized Neurologic: alert, oriented x 3 Skin: normal pigmentation Cassius Sawyer Jan 09, 2019 11:13
[2019-01-09 12:00] VITALS: BP 153/82
--- NOTE | 2019-01-09 12:18 | Infectious Diseases Prog Note ---
Assessment/Plan Assessment/Plan IMPRESSION: Sepsis or systemic inflammatory response syndrome, resolved COPD, Hypercapnic respiratory failure, Salicylate toxicity, Morbid obesity. Leukocytosis Positive Urine culture, colonization RECOMMENDATION: Observe off antibiotic Taper steroids. Subjective ROS Limited/Unobtainable: No Constitutional: Reports: no symptoms Respiratory: Reports: no symptoms Gastrointestinal/Abdominal: Reports: no symptoms Allergies: Coded Allergies: No Known Allergies (Unverified , 11/07/13) Objective Vital Signs Last 24 Hour Vital Signs Date Time Temp Pulse Resp B/P (MAP) Pulse Ox O2 Delivery O2 Flow Rate FiO2 01/09/19 12:00 98.2 95 23 153/82 (105) 96 01/09/19 09:43 98.6 01/09/19 09:00 Nasal Cannula 2.0 01/09/19 08:00 110 01/09/19 08:00 98.2 107 23 135/71 (92) 94 01/09/19 07:01 96 22 97 Room Air 21 01/09/19 07:01 Room Air 21 01/09/19 04:00 Nasal Cannula 2.0 01/09/19 04:00 96 01/09/19 00:00 93 01/09/19 00:00 98.6 95 19 144/65 (91) 96 01/09/19 00:00 Nasal Cannula 2.0 01/08/19 20:00 98.4 98 19 141/62 (88) 97 01/08/19 20:00 Nasal Cannula 2.0 01/08/19 20:00 93 01/08/19 19:47 97 Nasal Cannula 2.0 28 01/08/19 18:10 98.4 01/08/19 17:43 86 22 94 Nasal Cannula 2.0 28 01/08/19 16:00 Nasal Cannula 2.0 01/08/19 16:00 105 01/08/19 16:00 98.4 84 20 106/65 (79) 97 Height (Feet): 5 Height (Inches): 9.00 Weight (Pounds): 308 General Appearance: no acute distress HEENT: mucous membranes moist Respiratory/Chest: lungs clear, other - oxygen by nasal cannula Cardiovascular: normal rate Abdomen: soft, non tender Extremities: no edema Neurologic/Psychiatric: alert, responsive Laboratory Tests Test 01/09/19 06:15 White Blood Count 12.0 K/UL (4.8-10.8) H Red Blood Count 3.57 M/UL (4.20-5.40) L Hemoglobin 11.0 G/DL (12.0-16.0) L Hematocrit 34.6 % (37.0-47.0) L Mean Corpuscular Volume 97 FL (80-99) Mean Corpuscular Hemoglobin 31.0 PG (27.0-31.0) Mean Corpuscular Hemoglobin Concent 31.9 G/DL (32.0-36.0) L Red Cell Distribution Width 13.8 % (11.6-14.8) Platelet Count 192 K/UL (150-450) Mean Platelet Volume 5.5 FL (6.5-10.1) L Neutrophils (%) (Auto) 57.2 % (45.0-75.0) Lymphocytes (%) (Auto) 33.8 % (20.0-45.0) Monocytes (%) (Auto) 6.4 % (1.0-10.0) Eosinophils (%) (Auto) 0.8 % (0.0-3.0) Basophils (%) (Auto) 1.7 % (0.0-2.0) Sodium Level 144 MMOL/L (136-145) Potassium Level 3.8 MMOL/L (3.5-5.1) Chloride Level 110 MMOL/L (98-107) H Carbon Dioxide Level 29 MMOL/L (21-32) Anion Gap 5 mmol/L (5-15) Blood Urea Nitrogen 15 mg/dL (7-18) Creatinine 1.1 MG/DL (0.55-1.30) Estimat Glomerular Filtration Rate > 60 mL/min (>60) Glucose Level 100 MG/DL (74-106) Calcium Level 8.8 MG/DL (8.5-10.1) Current Medications Medications (Trade) Dose Ordered Sig/Amaya Route PRN Reason Start Time Stop Time Status Last Admin Dose Admin Acetaminophen (Tylenol) 650 mg Q4H PRN ORAL FOR TEMP >100.5 01/06/19 13:30 02/05/19 13:29 01/09/19 09:13 Acetaminophen/ Hydrocodone Bitart ([place] 5/325) 1 tab Q4H PRN ORAL Moderate Pain (Pain Scale 4-6) 01/06/19 13:31 01/13/19 13:30 01/09/19 06:00 Clonidine HCl (Catapres Tab) 0.1 mg Q4H PRN ORAL bp over 165 syst 01/06/19 13:30 02/05/19 13:29 Dextrose (Dextrose 50%) 25 ml Q30M PRN IV Hypoglycemia 01/06/19 13:30 01/20/19 16:59 Dextrose (Dextrose 50%) 50 ml Q30M PRN IV Hypoglycemia 01/06/19 13:30 01/20/19 16:59 Diphenhydramine HCl (Benadryl) 50 mg Q6H PRN IM Restlessness 01/06/19 13:30 02/05/19 13:29 01/08/19 13:53 Docusate Sodium (Colace) 100 mg TID ORAL 01/06/19 18:00 01/27/19 20:59 01/09/19 09:08 Enoxaparin Sodium (Lovenox) 40 mg DAILY SUBQ 01/07/19 09:00 02/05/19 09:59 01/09/19 09:09 Haloperidol Lactate (Haldol) 5 mg Q6H PRN IM Agitation 01/06/19 13:31 02/05/19 13:30 Insulin Aspart (NovoLOG) AC+HS SUBQ 01/06/19 16:30 01/20/19 17:59 01/09/19 06:01 Lactulose (Cephulac) 20 gm THREE TIMES A DAY ORAL 01/06/19 18:00 01/30/19 17:59 Levalbuterol HCl (Xopenex) 0.63 mg Q8H PRN HHN Shortness of Breath 01/06/19 14:00 01/11/19 13:59 Methylprednisolone Sodium Succinate (Solu-MEDROL) 30 mg DAILY IVP 01/07/19 09:00 01/28/19 08:59 01/09/19 09:20 Olanzapine (ZyPREXA) 10 mg BID ORAL 01/06/19 18:00 01/31/19 18:44 01/09/19 09:08 Pantoprazole (Protonix) 40 mg BIAC ORAL 01/06/19 16:30 02/04/19 16:29 01/09/19 05:59 Polyethylene Glycol (Miralax) 17 gm BEDTIME ORAL 01/06/19 21:00 01/30/19 20:59 01/08/19 21:00 Polyethylene Glycol (Miralax) 17 gm DAILYPRN PRN ORAL Constipation 01/06/19 13:32 02/05/19 13:31 Nikos Martinez MD Jan 09, 2019 12:17
[2019-01-09 16:00] VITALS: BP 146/90
[2019-01-09] MEDS ORDERED: HydrALAZINE 50mg tab ORAL SCH (17:00)
--- NOTE | 2019-01-09 18:51 | Pulmonolgy Critical Care Note ---
Critical Care - Asmt/Plan Assessment/Plan: Pulmonary CCM Progress Note HPI Patient is a 58-year-old woman with apparent history of Obstructive Airways Disease, Schizophrenia, Obesity, presented with shortness of breath, increased anxiety. Remains on PRN BiPAP Noted to have elevated ASA level on admission FIO2 reduced , AB per ID, Diuresing well Improving mental status, Psychiatry following, more interactive today, ST following No new complaints, denies SOB Physical Exam Vital Signs Noted General Appearance: normal inspection, obese, awake Head: NCAT ENT: Moist mm, JVP not visible Neck: normal inspection, full range of motion, supple, no bony tend Respiratory: normal inspection, no respiratory distress, no retraction, no wheezing, reduced basal BS Cardiovascular: regular rate, rhythm, Normal HS1, HS2 Gastrointestinal: normal inspection, normal bowel sounds, non tender, soft, no guarding, no hernia Genitourinary: no CVA tenderness Musculoskeletal: normal inspection, minimal edema Neurologic: no focal signs noted, follows commands Impression: Respiratory failure - sp extubation, on PRN BiPAP Previously elevated Salicylate level Pneumonia Possible Congestive Heart Failure Salicylate overdose Schizophrenia/Psychosis Asthma Obesity Plan: Adjust FIO2, BiPAP PRN - wean as tolerated ABG CXR ID following IV Solumedrol reduced Sedation per Psychiatry Aspiration precautions, ST following HHN ISS [employer] med PRN Sedation PPX Keep negative balance - received Lasix again today ST eval Labs Noted CXR: Small R effusion vascular congestion Critical Care - Objective Last 24 Hour Vital Signs Date Time Temp Pulse Resp B/P (MAP) Pulse Ox O2 Delivery O2 Flow Rate FiO2 01/09/19 16:58 98.2 01/09/19 16:00 Nasal Cannula 2.0 01/09/19 16:00 103 01/09/19 16:00 98.5 104 23 146/90 (108) 98 01/09/19 12:00 Nasal Cannula 2.0 01/09/19 12:00 98.2 95 23 153/82 (105) 96 01/09/19 12:00 98 01/09/19 09:43 98.6 01/09/19 09:00 Nasal Cannula 2.0 01/09/19 08:00 110 01/09/19 08:00 98.2 107 23 135/71 (92) 94 01/09/19 07:01 96 22 97 Room Air 21 01/09/19 07:01 Room Air 21 01/09/19 04:00 Nasal Cannula 2.0 01/09/19 04:00 96 01/09/19 00:00 93 01/09/19 00:00 98.6 95 19 144/65 (91) 96 01/09/19 00:00 Nasal Cannula 2.0 01/08/19 20:00 98.4 98 19 141/62 (88) 97 01/08/19 20:00 Nasal Cannula 2.0 01/08/19 20:00 93 01/08/19 19:47 97 Nasal Cannula 2.0 28 Accucheck: 126 Critical Care - Subjective ROS Limited/Unobtainable: No FI02: 21 Vent Support Breath Rate: 24 Vent Support Mode: BiLevel Vent Tidal Volume: 550 Sputum Amount: None PEEP: 5.0 PIP: 14 Tube Feeding Amount: 40 I&O: Intake and Output 01/08/19 01/09/19 18:59 06:59 Intake Total 320 ml 240 ml Balance 320 ml 240 ml Intake Oral 320 ml 240 ml # Voids 5 2 # Bowel Movements 3 4 ET-Tube: 7.0 ET Position: 22 Kevan Monsalve MD Jan 09, 2019 18:51
--- NOTE | 2019-01-09 19:35 | NUR ---
HAND-OFF: Report given to Pal Jarvis.Plan of care endorsed.
--- NOTE | 2019-01-09 19:49 | NUR ---
NURSE NOTES: Received pt from [facility]. Pt asleep. Bed in lowest position. Call light within reach. Will continue to monitor.
[2019-01-09 20:00] VITALS: BP 94/63
[2019-01-09] MEDS: Miralax 17gm pkt ORAL SCH (21:30)
[2019-01-10] VITALS: BP 106/62
[2019-01-10] MEDS: NovoLOG Insulin Flexpen SUBQ SCH ×3 (05:17→17:07)
--- NOTE | 2019-01-10 07:24 | NUR ---
HAND-OFF: Report given to [facility]. PT STABLE.
--- NOTE | 2019-01-10 07:25 | NUR ---
NURSE NOTES: Received patient in bed. On room air. Awake, alert, in no apparent distress. Will continue plan of care.
[2019-01-10 08:00] VITALS: BP 155/77
--- NOTE | 2019-01-10 08:10 | General Progress Note ---
Assessment/Plan Assessment/Plan: (1) Anemia ICD Codes: D64.9 - Anemia, unspecified SNOMED: 862486112 (2) Salicylate overdose ICD Codes: T39.091A - Poisoning by salicylates, accidental (unintentional), initial encounter SNOMED: 597459528, 2841462 (3) Respiratory failure ICD Codes: J96.90 - Respiratory failure, unspecified, unspecified whether with hypoxia or hypercapnia SNOMED: 205248197 (4) Suicidal intent (5) COPD (6) obesity i. Assessment/Plan No plans for GI procedures at this time, stable H&H on prn BIPAP Electrolyte correction OB stool r/o GI bleed monitor H&H, prn transfusions bowel regimen >> colace, miralax and lactulose ppi fu labs Subjective ROS Limited/Unobtainable: Yes Allergies: Coded Allergies: No Known Allergies (Unverified , 11/07/13) Objective Last 24 Hour Vital Signs Date Time Temp Pulse Resp B/P (MAP) Pulse Ox O2 Delivery O2 Flow Rate FiO2 01/10/19 04:00 Nasal Cannula 2.0 01/10/19 04:00 78 01/10/19 00:00 98.2 100 19 106/62 (77) 99 01/10/19 00:00 101 01/10/19 00:00 Nasal Cannula 2.0 01/09/19 20:00 110 01/09/19 20:00 97.5 102 20 94/63 (73) 99 01/09/19 20:00 Nasal Cannula 2.0 01/09/19 19:54 99 Nasal Cannula 2.0 28 01/09/19 16:58 98.2 01/09/19 16:00 Nasal Cannula 2.0 01/09/19 16:00 103 01/09/19 16:00 98.5 104 23 146/90 (108) 98 01/09/19 12:00 Nasal Cannula 2.0 01/09/19 12:00 98.2 95 23 153/82 (105) 96 01/09/19 12:00 98 01/09/19 09:43 98.6 01/09/19 09:00 Nasal Cannula 2.0 Intake and Output 01/09/19 01/10/19 19:00 07:00 Intake Total 400 ml Output Total 500 ml 300 ml Balance -100 ml -300 ml Intake Oral 240 ml Free Water 100 ml Tube Feeding 40 ml Other 20 ml Output Urine Total 500 ml 300 ml # Voids 2 2 # Bowel Movements 4 3 Height (Feet): 5 Height (Inches): 9.00 Weight (Pounds): 312 General Appearance: no apparent distress EENT: normal ENT inspection Neck: supple Cardiovascular: normal rate Respiratory/Chest: decreased breath sounds Abdomen: normal bowel sounds, non tender, soft Extremities: non-tender Vladimir Saldana MD Jan 10, 2019 08:10
[2019-01-10] MEDS: OLANZapine 10mg tab ORAL SCH ×2 (08:14→17:50)
[2019-01-10] MEDS: Solu-MEDROL 40mg Inj IVP SCH (08:15)
[2019-01-10] MEDS: HYDROcodone/Acetamin 5/325 tab ORAL PRN ×2 (08:15→13:57)
[2019-01-10] MEDS: Enoxaparin 40mg Inj SUBQ SCH (08:16)
[2019-01-10] MEDS: Lactulose 20gm/30ml UDC ORAL SCH ×3 (08:36→17:22)
[2019-01-10] MEDS: Docusate 100mg cap ORAL SCH ×3 (08:37→17:22)
--- NOTE | 2019-01-10 08:42 | General Progress Note ---
Assessment/Plan Assessment/Plan: (1) Lumbar Spondylolisthesis (2) Lumbar Herniated disc (3) Lumbar Radiculopathy (4) Lumbar DDD (5) Lumbar Spondylosis Patient will be continued on [place] D/w Dr. Chappell and he concurred. Subjective Date patient seen: Jan 10, 2019 Time patient seen: 08:00 - AM Constitutional: Reports: no symptoms HEENT: Reports: no symptoms Cardiovascular: Reports: no symptoms Respiratory: Reports: no symptoms Gastrointestinal/Abdominal: Reports: no symptoms Neurologic/Psychiatric: Reports: no symptoms Endocrine: Reports: no symptoms Hematologic/Lymphatic: Reports: no symptoms Allergies: Coded Allergies: No Known Allergies (Unverified , 11/07/13) Subjective Patient is in bed no signs of pain or distress. Has used 4 doses of [place] in the last 24hrs. No new complaints at this time. Objective Last 24 Hour Vital Signs Date Time Temp Pulse Resp B/P (MAP) Pulse Ox O2 Delivery O2 Flow Rate FiO2 01/10/19 04:00 Nasal Cannula 2.0 01/10/19 04:00 78 01/10/19 00:00 98.2 100 19 106/62 (77) 99 01/10/19 00:00 101 01/10/19 00:00 Nasal Cannula 2.0 01/09/19 20:00 110 01/09/19 20:00 97.5 102 20 94/63 (73) 99 01/09/19 20:00 Nasal Cannula 2.0 01/09/19 19:54 99 Nasal Cannula 2.0 28 01/09/19 16:58 98.2 01/09/19 16:00 Nasal Cannula 2.0 01/09/19 16:00 103 01/09/19 16:00 98.5 104 23 146/90 (108) 98 01/09/19 12:00 Nasal Cannula 2.0 01/09/19 12:00 98.2 95 23 153/82 (105) 96 01/09/19 12:00 98 01/09/19 09:43 98.6 01/09/19 09:00 Nasal Cannula 2.0 Intake and Output 01/09/19 01/10/19 19:00 07:00 Intake Total 400 ml Output Total 500 ml 300 ml Balance -100 ml -300 ml Intake Oral 240 ml Free Water 100 ml Tube Feeding 40 ml Other 20 ml Output Urine Total 500 ml 300 ml # Voids 2 2 # Bowel Movements 4 3 Height (Feet): 5 Height (Inches): 9.00 Weight (Pounds): 312 General Appearance: no apparent distress, alert EENT: PERRL/EOMI, normal ENT inspection Neck: non-tender, normal alignment Cardiovascular: normal rate, regular rhythm Respiratory/Chest: lungs clear, normal breath sounds Abdomen: non tender, soft Extremities: non-tender Edema: no edema noted Generalized Neurologic: alert, oriented x 3 Skin: normal pigmentation Cassius Sawyer Jan 10, 2019 08:42
[2019-01-10 09:26] LABS: BASOPHILS % (AUTO) 1.4 % (0.0-2.0); EOSINOPHILS % (AUTO) 0.7 % (0.0-3.0); HEMATOCRIT 35.7 % (37.0-47.0); HEMOGLOBIN 11.2 G/DL (12.0-16.0); LYMPHOCYTES % (AUTO) 35.6 % (20.0-45.0); MEAN CORPUSCULAR VOLUME 98 FL (80-99); MONOCYTES % (AUTO) 6.9 % (1.0-10.0); NEUTROPHILS % (AUTO) 55.5 % (45.0-75.0); PLATELET COUNT 175 K/UL (150-450); RED BLOOD COUNT 3.64 M/UL (4.20-5.40); RED CELL DISTRIBUTION WIDTH 14.5 % (11.6-14.8); WHITE BLOOD COUNT 9.7 K/UL (4.8-10.8)
[2019-01-10 09:31] LABS: ANION GAP 4 mmol/L (5-15); BLOOD UREA NITROGEN 13 mg/dL (7-18); CALCIUM 8.7 MG/DL (8.5-10.1); CARBON DIOXIDE 28 MMOL/L (21-32); CHLORIDE 107 MMOL/L (98-107); CREATININE 0.9 MG/DL (0.55-1.30); POTASSIUM 3.4 MMOL/L (3.5-5.1); SODIUM 139 MMOL/L (136-145)
[2019-01-10 09:50] LABS: PHOSPHORUS 3.4 MG/DL (2.5-4.9)
[2019-01-10 09:52] LABS: ALANINE AMINOTRANSFERASE 44 U/L (12-78); ALBUMIN 2.8 G/DL (3.4-5.0); ALKALINE PHOSPHATASE 69 U/L (46-116); ASPARTATE AMINO TRANSFERASE 14 U/L (15-37); BILIRUBIN,DIRECT < 0.1 MG/DL (0.0-0.3); BILIRUBIN,TOTAL 0.2 MG/DL (0.2-1.0)
--- NOTE | 2019-01-10 11:07 | Nephrology Progress Note ---
Assessment/Plan Problem List: (1) Salicylate overdose (2) Psychosis (3) Anemia (4) Obesity (5) Hypokalemia (6) Rhabdomyolysis Assessment: high CPK Assessment HypoKalemia Mild Anemia s/p Acidosis resolved Respiratory failure Salicylate overdose Psychosis Asthma Obesity Plan Plan: continue resp. support PRN clonidin extubated 12/29 K , Mag , Phos supplement as needed no IV fluids taper steroids as possible Resp management per Dr hurt monitor renal parameters Urine studies to Tele DC jauregui DC IV fluids Subjective ROS Limited/Unobtainable: No Constitutional: Reports: malaise Objective Objective Last 24 Hour Vital Signs Date Time Temp Pulse Resp B/P (MAP) Pulse Ox O2 Delivery O2 Flow Rate FiO2 01/10/19 09:00 Room Air 01/10/19 08:00 98.4 111 20 155/77 (103) 95 01/10/19 07:38 111 01/10/19 04:00 Nasal Cannula 2.0 01/10/19 04:00 78 01/10/19 00:00 98.2 100 19 106/62 (77) 99 01/10/19 00:00 101 01/10/19 00:00 Nasal Cannula 2.0 01/09/19 20:00 110 01/09/19 20:00 97.5 102 20 94/63 (73) 99 01/09/19 20:00 Nasal Cannula 2.0 01/09/19 19:54 99 Nasal Cannula 2.0 28 01/09/19 16:58 98.2 01/09/19 16:00 Nasal Cannula 2.0 01/09/19 16:00 103 01/09/19 16:00 98.5 104 23 146/90 (108) 98 01/09/19 12:00 Nasal Cannula 2.0 01/09/19 12:00 98.2 95 23 153/82 (105) 96 01/09/19 12:00 98 Intake and Output 01/09/19 01/10/19 19:00 07:00 Intake Total 400 ml Output Total 500 ml 300 ml Balance -100 ml -300 ml Intake Oral 240 ml Free Water 100 ml Tube Feeding 40 ml Other 20 ml Output Urine Total 500 ml 300 ml # Voids 2 2 # Bowel Movements 4 3 Laboratory Tests 01/10/19 09:10: White Blood Count 9.7, Red Blood Count 3.64L, Hemoglobin 11.2L, Hematocrit 35.7L , Mean Corpuscular Volume 98, Mean Corpuscular Hemoglobin 30.9, Mean Corpuscular Hemoglobin Concent 31.5L, Red Cell Distribution Width 14.5, Platelet Count 175, Mean Platelet Volume 5.6L, Neutrophils (%) (Auto) 55.5, Lymphocytes (%) (Auto) 35.6, Monocytes (%) (Auto) 6.9, Eosinophils (%) (Auto) 0.7, Basophils (%) (Auto) 1.4, Sodium Level 139, Potassium Level 3.4L, Chloride Level 107, Carbon Dioxide Level 28, Anion Gap 4L, Blood Urea Nitrogen 13, Creatinine 0.9, Estimat Glomerular Filtration Rate > 60, Glucose Level 146H, Calcium Level 8.7, Phosphorus Level 3.4, Magnesium Level 1.7L, Total Bilirubin 0.2, Direct Bilirubin < 0.1, Aspartate Amino Transf (AST/SGOT) 14L, Alanine Aminotransferase (ALT/SGPT) 44, Alkaline Phosphatase 69, Total Protein 5.6L, Albumin 2.8L Height (Feet): 5 Height (Inches): 9.00 Weight (Pounds): 312 General Appearance: no apparent distress Cardiovascular: normal rate Respiratory/Chest: decreased breath sounds Abdomen: other - obese Jerzy Boudreaux MD Jan 10, 2019 11:07
--- NOTE | 2019-01-10 11:09 | NUR ---
[employer] SI: COPD T. 98.4 HR 111 RR 20 B/P 155/77 K 3.4 MG 1.7 IS: SOLU MEDROL IV LOVENOX SUBC. TELE STATUS
[2019-01-10 12:00] VITALS: BP 162/96
--- NOTE | 2019-01-10 12:45 | Infectious Diseases Prog Note ---
Assessment/Plan Assessment/Plan IMPRESSION: Sepsis or systemic inflammatory response syndrome, resolved COPD, Hypercapnic respiratory failure, Salicylate toxicity, Morbid obesity. Leukocytosis Positive Urine culture, colonization RECOMMENDATION: Observe off antibiotic Agree with discharge Taper steroids. Subjective ROS Limited/Unobtainable: No Constitutional: Reports: no symptoms Respiratory: Reports: no symptoms Cardiovascular: Reports: no symptoms Gastrointestinal/Abdominal: Reports: no symptoms Allergies: Coded Allergies: No Known Allergies (Unverified , 11/07/13) Objective Vital Signs Last 24 Hour Vital Signs Date Time Temp Pulse Resp B/P (MAP) Pulse Ox O2 Delivery O2 Flow Rate FiO2 01/10/19 09:00 Room Air 01/10/19 08:00 98.4 111 20 155/77 (103) 95 01/10/19 07:38 111 01/10/19 04:00 Nasal Cannula 2.0 01/10/19 04:00 78 01/10/19 00:00 98.2 100 19 106/62 (77) 99 01/10/19 00:00 101 01/10/19 00:00 Nasal Cannula 2.0 01/09/19 20:00 110 01/09/19 20:00 97.5 102 20 94/63 (73) 99 01/09/19 20:00 Nasal Cannula 2.0 01/09/19 19:54 99 Nasal Cannula 2.0 28 01/09/19 16:58 98.2 01/09/19 16:00 Nasal Cannula 2.0 01/09/19 16:00 103 01/09/19 16:00 98.5 104 23 146/90 (108) 98 Height (Feet): 5 Height (Inches): 9.00 Weight (Pounds): 312 General Appearance: no acute distress HEENT: mucous membranes moist Respiratory/Chest: lungs clear Cardiovascular: normal rate Abdomen: soft, non tender Extremities: no edema Neurologic/Psychiatric: alert, oriented x 3, responsive Laboratory Tests Test 01/10/19 09:10 White Blood Count 9.7 K/UL (4.8-10.8) Red Blood Count 3.64 M/UL (4.20-5.40) L Hemoglobin 11.2 G/DL (12.0-16.0) L Hematocrit 35.7 % (37.0-47.0) L Mean Corpuscular Volume 98 FL (80-99) Mean Corpuscular Hemoglobin 30.9 PG (27.0-31.0) Mean Corpuscular Hemoglobin Concent 31.5 G/DL (32.0-36.0) L Red Cell Distribution Width 14.5 % (11.6-14.8) Platelet Count 175 K/UL (150-450) Mean Platelet Volume 5.6 FL (6.5-10.1) L Neutrophils (%) (Auto) 55.5 % (45.0-75.0) Lymphocytes (%) (Auto) 35.6 % (20.0-45.0) Monocytes (%) (Auto) 6.9 % (1.0-10.0) Eosinophils (%) (Auto) 0.7 % (0.0-3.0) Basophils (%) (Auto) 1.4 % (0.0-2.0) Sodium Level 139 MMOL/L (136-145) Potassium Level 3.4 MMOL/L (3.5-5.1) L Chloride Level 107 MMOL/L (98-107) Carbon Dioxide Level 28 MMOL/L (21-32) Anion Gap 4 mmol/L (5-15) L Blood Urea Nitrogen 13 mg/dL (7-18) Creatinine 0.9 MG/DL (0.55-1.30) Estimat Glomerular Filtration Rate > 60 mL/min (>60) Glucose Level 146 MG/DL (74-106) H Calcium Level 8.7 MG/DL (8.5-10.1) Phosphorus Level 3.4 MG/DL (2.5-4.9) Magnesium Level 1.7 MG/DL (1.8-2.4) L Total Bilirubin 0.2 MG/DL (0.2-1.0) Direct Bilirubin < 0.1 MG/DL (0.0-0.3) Aspartate Amino Transf (AST/SGOT) 14 U/L (15-37) L Alanine Aminotransferase (ALT/SGPT) 44 U/L (12-78) Alkaline Phosphatase 69 U/L (46-116) Total Protein 5.6 G/DL (6.4-8.2) L Albumin 2.8 G/DL (3.4-5.0) L Current Medications Medications (Trade) Dose Ordered Sig/Amaya Route PRN Reason Start Time Stop Time Status Last Admin Dose Admin Acetaminophen (Tylenol) 650 mg Q4H PRN ORAL FOR TEMP >100.5 01/06/19 13:30 02/05/19 13:29 01/09/19 09:13 Acetaminophen/ Hydrocodone Bitart ([place] 5/325) 1 tab Q4H PRN ORAL Moderate Pain (Pain Scale 4-6) 01/06/19 13:31 01/13/19 13:30 01/10/19 08:15 Clonidine HCl (Catapres Tab) 0.1 mg Q4H PRN ORAL bp over 165 syst 01/06/19 13:30 02/05/19 13:29 Dextrose (Dextrose 50%) 25 ml Q30M PRN IV Hypoglycemia 01/06/19 13:30 01/20/19 16:59 Dextrose (Dextrose 50%) 50 ml Q30M PRN IV Hypoglycemia 01/06/19 13:30 01/20/19 16:59 Diphenhydramine HCl (Benadryl) 50 mg Q6H PRN IM Restlessness 01/06/19 13:30 02/05/19 13:29 01/08/19 13:53 Docusate Sodium (Colace) 100 mg TID ORAL 01/06/19 18:00 01/27/19 20:59 01/09/19 09:08 Enoxaparin Sodium (Lovenox) 40 mg DAILY SUBQ 01/07/19 09:00 02/05/19 09:59 01/10/19 08:16 Haloperidol Lactate (Haldol) 5 mg Q6H PRN IM Agitation 01/06/19 13:31 02/05/19 13:30 Insulin Aspart (NovoLOG) AC+HS SUBQ 01/06/19 16:30 01/20/19 17:59 01/09/19 21:38 Lactulose (Cephulac) 20 gm THREE TIMES A DAY ORAL 01/06/19 18:00 01/30/19 17:59 Levalbuterol HCl (Xopenex) 0.63 mg Q8H PRN HHN Shortness of Breath 01/06/19 14:00 01/11/19 13:59 Magnesium Sulfate 100 ml @ 100 mls/hr Q1H IVPB 01/10/19 11:30 01/10/19 15:29 01/10/19 12:03 Methylprednisolone Sodium Succinate (Solu-MEDROL) 30 mg DAILY IVP 01/07/19 09:00 01/28/19 08:59 01/10/19 08:15 Olanzapine (ZyPREXA) 10 mg BID ORAL 01/06/19 18:00 01/31/19 18:44 01/10/19 08:14 Pantoprazole (Protonix) 40 mg BIAC ORAL 01/06/19 16:30 02/04/19 16:29 01/09/19 17:23 Polyethylene Glycol (Miralax) 17 gm BEDTIME ORAL 01/06/19 21:00 01/30/19 20:59 01/09/19 21:30 Polyethylene Glycol (Miralax) 17 gm DAILYPRN PRN ORAL Constipation 01/06/19 13:32 02/05/19 13:31 Potassium Chloride (K-Dur) 20 meq DAILY ORAL 01/10/19 11:15 02/09/19 11:14 01/10/19 12:02 Nikos Martinez MD Jan 10, 2019 12:45
[2019-01-10] MEDS ORDERED: Medrol Dosepak (RX TO ENTER) ORAL SCH (13:15)
--- NOTE | 2019-01-10 15:04 | Hematology/Onc Progress Note ---
Assessment/Plan Assessment/Plan Assessment and Recs: # Anemia of iron deficiency with decreased ferritin --> No evidence of hemolysis is noted, peripheral smear has been reviewed --> Hgb goal >7. Transfuse prn. --> Iron has been ordered x 1 dose given stable hgb --> Medications have been reviewed --> low threshold for gi evaluation in case has occult + --> hgb trend 11.6-->12.2-->12.1-->12-->11.2 # Leukocytosis is likely due to steriods, which has currently improved --> monitor steriod use --> accuchecks qac and qhs --> insulin as needed prn --> on ctx/doxy per id prn --> wbc 12-->15->17-->18-->14.3-->14-->15.2->12.6-->10.5-->9.7 --> smear reviewed and no blasts noted --> FROM time to time refusing labs # Salicylate overdose now improved --> Medical management for salicylate overdose --> Sodium bicarbonate --> IVF started, as per renal --> now improved # Electrolyte correction --> replace k prn basis # Resp failure --> 12/29 extubated is on nc --> bipap # Dvt ppx on lovenox (01/06) The timing of this note does not necessarily reflect the time of the patient was seen. GREATLY APPRECIATE CONSULTATION. Subjective Constitutional: Denies: no symptoms, chills, fever, malaise, weakness, other HEENT: Denies: no symptoms, eye pain, blurred vision, tearing, double vision, ear pain, ear discharge, nose pain, nose congestion, throat pain, throat swelling, mouth pain, mouth swelling, other Cardiovascular: Denies: no symptoms, chest pain, edema, irregular heart rate, lightheadedness, palpitations, syncope, other Respiratory: Denies: no symptoms, cough, shortness of breath, SOB with excertion, SOB at rest, sputum, wheezing, other Gastrointestinal/Abdominal: Denies: no symptoms, abdomen distended, abdominal pain, black stools, tarry stools, blood in stool, constipated, diarrhea, difficulty swallowing, nausea, poor appetite, poor fluid intake, rectal bleeding , vomiting, other Genitourinary: Denies: no symptoms, burning, discharge, frequency, flank pain, hematuria, incontinence, pain, urgency, other Neurologic/Psychiatric: Denies: no symptoms, anxiety, depressed, emotional problems, headache, numbness, paresthesia, pre-existing deficit, seizure, tingling, tremors, weakness, other Endocrine: Denies: no symptoms, excessive sweating, flushing, intolerance to cold, intolerance to heat, increased hunger, increased thirst, increased urine, unexplained weight gain, unexplained weight loss, other Hematologic/Lymphatic: Denies: no symptoms, anemia, easy bleeding, easy bruising, adenopathy, other Allergies: Coded Allergies: No Known Allergies (Unverified , 11/07/13) Subjective 12/23: no events, no bleeding reported, tf held for potential extubation 12/24: icu, trach, agitated and confused, labs reviewed, abx, fentanyl 12/26: no bleeding, no chills, still on abx, fentayl, labs reviewed 12/27: dox and ctx, no bleeding sputum cultures reviewed 12/29: turned, repositioned, remains npo, labs noted 12/30: icu, restless, on abx, no signs of distress, labs reviewed, no fever 12/31: remain in icu, agitated, on seroquel, on restraints, labs reviewed 01/01: remains agitated and restless, on bipap in the icu 01/03: no bleeding, no f, c, no night sweats, no major events, labs reviewed 01/05: imaging reviewed, on olanzapine, no sob, no distress 01/06: no wheezing, a+o x3, no events, labs reviewed, seen with pain management 01/07: no f/c, no sob, no distress, a+o x4, denies pain 01/08: awake, alert, no f/c, no major changes, no bleeding 01/10: no bleeding or chills, no night sweats, no fevers, stable for dc Objective Objective Current Medications Medications (Trade) Dose Ordered Sig/Amaya Route PRN Reason Start Time Stop Time Status Last Admin Dose Admin Acetaminophen (Tylenol) 650 mg Q4H PRN ORAL FOR TEMP >100.5 01/06/19 13:30 02/05/19 13:29 01/09/19 09:13 Acetaminophen/ Hydrocodone Bitart ([place] 5/325) 1 tab Q4H PRN ORAL Moderate Pain (Pain Scale 4-6) 01/06/19 13:31 01/13/19 13:30 01/10/19 13:57 Clonidine HCl (Catapres Tab) 0.1 mg Q4H PRN ORAL bp over 165 syst 01/06/19 13:30 02/05/19 13:29 Dextrose (Dextrose 50%) 25 ml Q30M PRN IV Hypoglycemia 01/06/19 13:30 01/20/19 16:59 Dextrose (Dextrose 50%) 50 ml Q30M PRN IV Hypoglycemia 01/06/19 13:30 01/20/19 16:59 Diphenhydramine HCl (Benadryl) 50 mg Q6H PRN IM Restlessness 01/06/19 13:30 02/05/19 13:29 01/08/19 13:53 Docusate Sodium (Colace) 100 mg TID ORAL 01/06/19 18:00 01/27/19 20:59 01/09/19 09:08 Enoxaparin Sodium (Lovenox) 40 mg DAILY SUBQ 01/07/19 09:00 02/05/19 09:59 01/10/19 08:16 Haloperidol Lactate (Haldol) 5 mg Q6H PRN IM Agitation 01/06/19 13:31 02/05/19 13:30 Insulin Aspart (NovoLOG) AC+HS SUBQ 01/06/19 16:30 01/20/19 17:59 01/09/19 21:38 Lactulose (Cephulac) 20 gm THREE TIMES A DAY ORAL 01/06/19 18:00 01/30/19 17:59 Levalbuterol HCl (Xopenex) 0.63 mg Q8H PRN HHN Shortness of Breath 01/06/19 14:00 01/11/19 13:59 Magnesium Sulfate 100 ml @ 100 mls/hr Q1H IVPB 01/10/19 11:30 01/10/19 15:29 01/10/19 14:47 Methylprednisolone (Medrol) 4 mg ACBREAKFAST ORAL 01/12/19 06:30 01/16/19 08:30 Methylprednisolone (Medrol) 4 mg BIDLS ORAL 01/11/19 11:30 01/13/19 18:00 Methylprednisolone (Medrol) 4 mg Q24H ORAL 01/14/19 12:30 01/14/19 13:00 Methylprednisolone (Medrol) 4 mg QHS ORAL 01/13/19 21:00 01/15/19 22:00 Methylprednisolone (Medrol) 8 mg ACBREAKFAST ORAL 01/11/19 06:30 01/11/19 08:30 Methylprednisolone (Medrol) 8 mg QHS ORAL 01/11/19 21:00 01/12/19 22:00 Olanzapine (ZyPREXA) 10 mg BID ORAL 01/06/19 18:00 01/31/19 18:44 01/10/19 08:14 Pantoprazole (Protonix) 40 mg BIAC ORAL 01/06/19 16:30 02/04/19 16:29 01/09/19 17:23 Polyethylene Glycol (Miralax) 17 gm BEDTIME ORAL 01/06/19 21:00 01/30/19 20:59 01/09/19 21:30 Polyethylene Glycol (Miralax) 17 gm DAILYPRN PRN ORAL Constipation 01/06/19 13:32 02/05/19 13:31 Potassium Chloride (K-Dur) 20 meq DAILY ORAL 01/10/19 11:15 02/09/19 11:14 01/10/19 12:02 Last 24 Hour Vital Signs Date Time Temp Pulse Resp B/P (MAP) Pulse Ox O2 Delivery O2 Flow Rate FiO2 01/10/19 12:00 98.1 113 20 162/96 (118) 93 01/10/19 09:00 Room Air 01/10/19 08:00 98.4 111 20 155/77 (103) 95 01/10/19 07:38 111 01/10/19 07:00 98 Nasal Cannula 2.0 28 01/10/19 04:00 Nasal Cannula 2.0 01/10/19 04:00 78 01/10/19 00:00 98.2 100 19 106/62 (77) 99 01/10/19 00:00 101 01/10/19 00:00 Nasal Cannula 2.0 01/09/19 20:00 110 01/09/19 20:00 97.5 102 20 94/63 (73) 99 01/09/19 20:00 Nasal Cannula 2.0 01/09/19 19:54 99 Nasal Cannula 2.0 28 01/09/19 16:58 98.2 01/09/19 16:00 Nasal Cannula 2.0 01/09/19 16:00 103 01/09/19 16:00 98.5 104 23 146/90 (108) 98 01/09/19 12:00 Nasal Cannula 2.0 01/09/19 12:00 98.2 95 23 153/82 (105) 96 01/09/19 12:00 98 01/09/19 09:43 98.6 01/09/19 09:00 Nasal Cannula 2.0 01/09/19 08:00 110 01/09/19 08:00 98.2 107 23 135/71 (92) 94 01/09/19 07:01 96 22 97 Room Air 21 01/09/19 07:01 Room Air 21 01/09/19 04:00 Nasal Cannula 2.0 01/09/19 04:00 96 01/09/19 00:00 93 01/09/19 00:00 98.6 95 19 144/65 (91) 96 01/09/19 00:00 Nasal Cannula 2.0 01/08/19 20:00 98.4 98 19 141/62 (88) 97 01/08/19 20:00 Nasal Cannula 2.0 01/08/19 20:00 93 01/08/19 19:47 97 Nasal Cannula 2.0 28 01/08/19 17:43 86 22 94 Nasal Cannula 2.0 28 01/08/19 16:00 Nasal Cannula 2.0 01/08/19 16:00 105 01/08/19 16:00 98.4 84 20 106/65 (79) 97 Intake and Output 01/09/19 01/10/19 19:00 07:00 Intake Total 400 ml Output Total 500 ml 300 ml Balance -100 ml -300 ml Intake Oral 240 ml Free Water 100 ml Tube Feeding 40 ml Other 20 ml Output Urine Total 500 ml 300 ml # Voids 2 2 # Bowel Movements 4 3 Labs Test 01/08/19 08:17 01/08/19 08:25 01/09/19 06:15 01/10/19 09:10 Sodium Level 147 MMOL/L (136-145) 144 MMOL/L (136-145) 139 MMOL/L (136-145) Potassium Level 3.6 MMOL/L (3.5-5.1) 3.8 MMOL/L (3.5-5.1) 3.4 MMOL/L (3.5-5.1) Chloride Level 111 MMOL/L (98-107) 110 MMOL/L (98-107) 107 MMOL/L (98-107) Carbon Dioxide Level 27 MMOL/L (21-32) 29 MMOL/L (21-32) 28 MMOL/L (21-32) Anion Gap 9 mmol/L (5-15) 5 mmol/L (5-15) 4 mmol/L (5-15) Blood Urea Nitrogen 13 mg/dL (7-18) 15 mg/dL (7-18) 13 mg/dL (7-18) Creatinine 0.9 MG/DL (0.55-1.30) 1.1 MG/DL (0.55-1.30) 0.9 MG/DL (0.55-1.30) Estimat Glomerular Filtration Rate > 60 mL/min (>60) > 60 mL/min (>60) > 60 mL/min (>60) Glucose Level 148 MG/DL (74-106) 100 MG/DL (74-106) 146 MG/DL (74-106) Calcium Level 8.5 MG/DL (8.5-10.1) 8.8 MG/DL (8.5-10.1) 8.7 MG/DL (8.5-10.1) Phosphorus Level 3.0 MG/DL (2.5-4.9) 3.4 MG/DL (2.5-4.9) Magnesium Level 1.7 MG/DL (1.8-2.4) 1.7 MG/DL (1.8-2.4) Total Bilirubin 0.2 MG/DL (0.2-1.0) 0.2 MG/DL (0.2-1.0) Aspartate Amino Transf (AST/SGOT) 16 U/L (15-37) 14 U/L (15-37) Alanine Aminotransferase (ALT/SGPT) 40 U/L (12-78) 44 U/L (12-78) Alkaline Phosphatase 67 U/L (46-116) 69 U/L (46-116) Total Protein 5.9 G/DL (6.4-8.2) 5.6 G/DL (6.4-8.2) Albumin 2.6 G/DL (3.4-5.0) 2.8 G/DL (3.4-5.0) Globulin 3.3 g/dL Albumin/Globulin Ratio 0.8 (1.0-2.7) White Blood Count 12.0 K/UL (4.8-10.8) 12.0 K/UL (4.8-10.8) 9.7 K/UL (4.8-10.8) Red Blood Count 3.75 M/UL (4.20-5.40) 3.57 M/UL (4.20-5.40) 3.64 M/UL (4.20-5.40) Hemoglobin 11.6 G/DL (12.0-16.0) 11.0 G/DL (12.0-16.0) 11.2 G/DL (12.0-16.0) Hematocrit 36.5 % (37.0-47.0) 34.6 % (37.0-47.0) 35.7 % (37.0-47.0) Mean Corpuscular Volume 98 FL (80-99) 97 FL (80-99) 98 FL (80-99) Mean Corpuscular Hemoglobin 31.0 PG (27.0-31.0) 31.0 PG (27.0-31.0) 30.9 PG (27.0-31.0) Mean Corpuscular Hemoglobin Concent 31.8 G/DL (32.0-36.0) 31.9 G/DL (32.0-36.0) 31.5 G/DL (32.0-36.0) Red Cell Distribution Width 14.3 % (11.6-14.8) 13.8 % (11.6-14.8) 14.5 % (11.6-14.8) Platelet Count 195 K/UL (150-450) 192 K/UL (150-450) 175 K/UL (150-450) Mean Platelet Volume 5.7 FL (6.5-10.1) 5.5 FL (6.5-10.1) 5.6 FL (6.5-10.1) Neutrophils (%) (Auto) 57.4 % (45.0-75.0) 57.2 % (45.0-75.0) 55.5 % (45.0-75.0) Lymphocytes (%) (Auto) 34.6 % (20.0-45.0) 33.8 % (20.0-45.0) 35.6 % (20.0-45.0) Monocytes (%) (Auto) 6.0 % (1.0-10.0) 6.4 % (1.0-10.0) 6.9 % (1.0-10.0) Eosinophils (%) (Auto) 0.7 % (0.0-3.0) 0.8 % (0.0-3.0) 0.7 % (0.0-3.0) Basophils (%) (Auto) 1.3 % (0.0-2.0) 1.7 % (0.0-2.0) 1.4 % (0.0-2.0) Direct Bilirubin < 0.1 MG/DL (0.0-0.3) Height (Feet): 5 Height (Inches): 9.00 Weight (Pounds): 312 Objective Physical Exam General Appearance: well appearing, nad, obese Head: normocephalic ++ ogt Resp: normal breath sounds bipap++ Cardiovascular: normal rate Gastrointestinal: normal inspection, non tender, soft, normal bowel sounds, non -distended Msk: normal inspection, back normal Skin: normal inspection, normal color, no rash, warm/dry, palpation normal, well hydrated Lymphatic: normal inspection, no adenopathy Wade Bonds MD Jan 10, 2019 15:04
[2019-01-10 16:00] VITALS: BP 121/79
--- NOTE | 2019-01-10 18:53 | Pulmonolgy Critical Care Note ---
Critical Care - Asmt/Plan Assessment/Plan: Pulmonary CCM Progress Note HPI Patient is a 58-year-old woman with apparent history of Obstructive Airways Disease, Schizophrenia, Obesity, presented with shortness of breath, increased anxiety. Remains on PRN BiPAP Noted to have elevated ASA level on admission FIO2 reduced , AB per ID, Diuresing well Improving mental status, Psychiatry following, more interactive today, ST following No new complaints, denies SOB Much improved Physical Exam Vital Signs Noted, on RA General Appearance: normal inspection, obese, awake Head: NCAT ENT: Moist mm, JVP not visible Neck: normal inspection, full range of motion, supple, no bony tend Respiratory: normal inspection, no respiratory distress, no retraction, no wheezing, reduced basal BS Cardiovascular: regular rate, rhythm, Normal HS1, HS2 Gastrointestinal: normal inspection, normal bowel sounds, non tender, soft, no guarding, no hernia Genitourinary: no CVA tenderness Musculoskeletal: normal inspection, minimal edema Neurologic: no focal signs noted, follows commands Impression: Respiratory failure - sp extubation, on PRN BiPAP Previously elevated Salicylate level Pneumonia Possible Congestive Heart Failure Salicylate overdose Schizophrenia/Psychosis Asthma Obesity Plan: Adjust FIO2, BiPAP PRN - wean as tolerated ABG OK for DC from Pulmonary perspective IV Solumedrol to Medrol Dose Pack on DC Inhaled Steroids PRN Albuterol MDI Psychiatry following HHN while in Hospital ISS SOFT MUD MOLDER med PPX Labs Noted CXR: Small R effusion vascular congestion Critical Care - Objective Last 24 Hour Vital Signs Date Time Temp Pulse Resp B/P (MAP) Pulse Ox O2 Delivery O2 Flow Rate FiO2 01/10/19 16:00 98.6 117 20 121/79 (93) 97 01/10/19 15:30 108 01/10/19 12:00 98.1 113 20 162/96 (118) 93 01/10/19 11:41 95 01/10/19 09:00 Room Air 01/10/19 08:00 98.4 111 20 155/77 (103) 95 01/10/19 07:38 111 01/10/19 07:00 98 Nasal Cannula 2.0 28 01/10/19 04:00 Nasal Cannula 2.0 01/10/19 04:00 78 01/10/19 00:00 98.2 100 19 106/62 (77) 99 01/10/19 00:00 101 01/10/19 00:00 Nasal Cannula 2.0 01/09/19 20:00 110 01/09/19 20:00 97.5 102 20 94/63 (73) 99 01/09/19 20:00 Nasal Cannula 2.0 01/09/19 19:54 99 Nasal Cannula 2.0 28 Accucheck: 151 Critical Care - Subjective ROS Limited/Unobtainable: No FI02: 28 Vent Support Breath Rate: 24 Vent Support Mode: BiLevel Vent Tidal Volume: 550 Sputum Amount: None PEEP: 5.0 PIP: 14 Tube Feeding Amount: 40 I&O: Intake and Output 01/09/19 01/10/19 19:00 07:00 Intake Total 400 ml Output Total 500 ml 300 ml Balance -100 ml -300 ml Intake Oral 240 ml Free Water 100 ml Tube Feeding 40 ml Other 20 ml Output Urine Total 500 ml 300 ml # Voids 2 2 # Bowel Movements 4 3 ET-Tube: 7.0 ET Position: 22 Kevan Monsalve MD Jan 10, 2019 18:53
--- NOTE | 2019-01-10 19:00 | NUR ---
NURSE NOTES: Received pt and report from CLARENCE Ram. Observed pt resting in bed with both eyes open and watching television. Pt is being discharged home today; awaiting for pt's son's arrival. deaf teacher removed, IV site intact, asymptomatic, and patent, bed is in the lowest position and locked. Call light within reach. No signs/symptoms of acute distress noted at this time. Will continue plan of care until pt's son arrive to pickle water pump operator pt.
--- NOTE | 2019-01-10 19:15 | NUR ---
HAND-OFF: Report given to My Sylvia RN. Prescription medications provided by [facility] handed to incoming RN. Remains stable.
--- NOTE | 2019-01-10 19:50 | NUR ---
NURSE NOTES: Pt discharged home with sonSukhdeep via son's vehicle. Transferred pt to son's vehicle via wheelchair. Discharge teachings provided and completed with pt and son, belongings list checked, returned $100 from [employer]. Medications given to son. IV site removed; no bleeding noted. Pt in stable condition.
--- NOTE | 2019-01-10 22:45 | Progress Note ---
DATE: 01/10/2019 SUBJECTIVE: The patient is doing better. She was more cooperative. Over the weekend, no behavior issues. Calm and cooperative. MENTAL STATUS EXAMINATION: The patient is alert, oriented times self, place, and situation. Mood is depressed and irritable. Affect is constricted, congruent with mood. Thought process, linear and goal oriented. Thought content, no suicidal or homicidal ideation. ASSESSMENT: 1. Depression. 2. Anxiety. PLAN: 1. We will continue current medications. 2. Provide the patient with reality orientation and supportive therapy. Laurie Canchola M.D. DR: RYANNE JOB#: [id number] CC:
[2019-01-11] MEDS ORDERED: METHYLPREDNISOLONE 8 MG ORAL SCH (06:30)
[2019-01-11] MEDS ORDERED: methylPREDNISolone 4mg BIDLS ORAL SCH (11:30)
[2019-01-11] MEDS ORDERED: methylPREDNISolone 8mg QHS ORAL SCH (21:00)
[2019-01-12] MEDS ORDERED: methylPREDNISolone 4mg QAC ORAL SCH (06:30)
--- NOTE | 2019-01-12 07:44 | Discharge Summary ---
Discharge Summary Discharge Summary _ DATE OF ADMISSION: 12/21/2018 DATE OF DISCHARGE: 01/10/2019 DISCHARGED BY: Dr. Joe REASON FOR ADMISSION: [] 58 years old female with past medical history of schizophrenia, anxiety, morbid obesity, presented with difficulty breathing. Patient reported more anxious than usual. History was markedly limited due to mental status and poor historian and patient being a poor historian. Upon evaluation patient was tachycardic with a heart rate 122. Pulse oximetry was 92% on room air. Patient required emergency oral intubation. Laboratory work-up revealed no leukocytosis stable hemoglobin hematocrit. Stable electrolytes and renal parameters. CO2 20. Glucose 90. AST 44 ALT 58 troponin negative albumin 3.5. CK 7141 TSH 0.239 serum alcohol and Tylenol level negative. Serum salicylate level was high 46 EKG reveals sinus tachycardia no acute ischemic changes chest x-ray demonstrated complete atelectasis of the right lung with slope was likely related to low position of endotracheal tube in the left mainstem bronchus. Endotracheal tube was readjusted and another chest x-ray demonstrated improvement in satisfactory position of endotracheal tube. Patient subsequently admitted to ICU for further management CONSULTANTS: elevator starter Dr. Staton pulmonary Dr. Monsalve ID specialist Dr. Larios GI specialist Dr. Saldana entertainment reporter Dr. Boudreaux circular ripsaw operator/oncologist Dr. Bonds psychiatrist pain specialist Dr. Chappell HOSPITAL COURSE: Patient admitted to ICU. Patient was on IV alkalizing fluids. []. Ventilator support and pulmonary toilet provided. Budget Controller closely follow. Patient started on IV steroids along with empiric antibiotic. Handheld nebulized pulmonary toilet with the bronchodilator provided. Appropriate sedation provided. KUB confirmed placement of NG tube. Sedation provided as appropriate. Venous duplex bilateral lower extremity revealed no evidence of acute DVT. Echocardiogram demonstrated preserved ejection fraction of 60 to 65% with mild left ventricular hypertrophy. No evidence of pericardial effusion. No evidence of wall motion abnormality to the extent visualized. Right ventricular systolic pressure of 26. Stull Hewer follow patient was initially was a sinus tachycardia. Per elevator starter hypoxemia was a sinus tachycardia was likely due to hypoxemia. There was no need for AV carissa agent. Echocardiogram was stable. Lipid panel revealed elevated total cholesterol and elevated LDL. Recommended starting on statin as outpatient. Patient eventually was able to be extubated. Patient was follow-up with ABG. IV steroids type stable steroids taper. Patient was kept in negative balance and received diuretic received spot diuretic. Strict aspiration precaution maintained. Patient undergone bedside swallow evaluation after extubation. Diet provided as poor per speech therapy diet texture provided as per speech therapist recommendation is strict aspiration reflux precaution. Per GI specialist there was no plans for any GI procedure at this time. Hemoglobin hematocrit remained stable. Bowel regimen instituted. Diet was further advanced as tolerated. Renal (electrolytes are closely monitored. Electrolytes corrected as needed for toxic avoided as possible. Recommended to taper steroids fast. Initially alkalotic fluid provided. Acidosis urine studies were done. Subsequently after extubation patient was stable to transfer to telemetry floor. CO2 stabilized. Mon catheter and IV fluids discontinued. Infectious disease specialist followed. Per infectious disease patient had sepsis versus systemic inflammatory response syndrome and it resolved. Leukocytosis resolved the specialist recommended to keep patient off antibiotics. Sputum culture revealed one-time strep group B and another time staph aureus. Urine culture were negative first time and then showed [place].. Repair Servicer follow. Hemoglobin hematocrit were closely monitor remained stable. Anemia work-up was consistent with anemia of iron deficiency. No evidence of hemolysis. Peripheral blood smear has been reviewed. Prior to discharge hemoglobin 11.2, hematocrit 35.7. Leukocytosis most likely due to steroids and resolved. Pain management was addressed as per pain specialist recommendation due to lumbar radiculopathy and lumbar degenerative disc disease. Pain was controlled. Psychiatrist follow. Per psychiatrist patient had depression and anxiety. Psychiatric medication regimen was optimized. Reality orientation supportive therapy provided. FINAL DIAGNOSES: Sepsis or SIRS Acute hypoxemic hypercapnic respiratory failure requiring intubation Pneumonia Sinus tachycardia , likely due to hypoxemia COPD/asthma Elevated salicylate level / salicylate overdose Morbid obesity Rhabdomyolysis Electrolyte abnormalities: hypokalemia, hypomagnesemia, hypophosphatemia Depression Anxiety Psychosis Schizophrenia Lumbar radiculopathy Lumbar degenerative disc disease DISCHARGE MEDICATIONS: See Medication Reconciliation list. DISCHARGE INSTRUCTIONS: Patient was discharged home. Follow up with primary care provider in one week. I have been assigned to dictate discharge summary for this account. I was not involved in the patient's management. Paz Rojas NP Jan 12, 2019 07:44
[2019-01-13] MEDS ORDERED: methylPREDNISolone 4mg QHS ORAL SCH (21:00)
[2019-01-14] MEDS ORDERED: methylPREDNISolone 4mg after lunch ORAL SCH (12:30)
== END 2019-01-10 19:50 | disposition home or self-care (01) | DRG 917 ==
LOC: EDBD 09:48 → EMR 10:14 → EDBEDREQ 12:29 → ICU 12:40 → EDBEDREQSVC 13:13 → EDBEDREQ 13:13 → 2W 01-03 16:55 → 2E 01-06 13:19
DX: T39.092A Poisoning by salicylates, intentional self-harm, initial encounter (principal); A41.9 Sepsis, unspecified organism; J18.9 Pneumonia, unspecified organism; J96.02 Acute respiratory failure with hypercapnia; J96.01 Acute respiratory failure with hypoxia; J44.0 Chronic obstructive pulmonary disease with (acute) lower respiratory infection; G93.49 Other encephalopathy; Z68.42 Body mass index [BMI] 45.0-49.9, adult; J44.1 Chronic obstructive pulmonary disease with (acute) exacerbation; M62.82 Rhabdomyolysis; F11.20 Opioid dependence, uncomplicated; G93.40 Encephalopathy, unspecified; E66.01 Morbid (severe) obesity due to excess calories; E87.6 Hypokalemia; F20.9 Schizophrenia, unspecified; T14.91XA Suicide attempt, initial encounter; Y92.89 Other specified places as the place of occurrence of the external cause; E11.9 Type 2 diabetes mellitus without complications; G89.4 Chronic pain syndrome; F41.9 Anxiety disorder, unspecified; Z78.1 Physical restraint status; D50.9 Iron deficiency anemia, unspecified; R00.0 Tachycardia, unspecified; D72.829 Elevated white blood cell count, unspecified; T38.0X5A Adverse effect of glucocorticoids and synthetic analogues, initial encounter; Y92.230 Patient room in hospital as the place of occurrence of the external cause; M51.36 Other intervertebral disc degeneration, lumbar region; M47.9 Spondylosis, unspecified; M51.26 Other intervertebral disc displacement, lumbar region; E05.90 Thyrotoxicosis, unspecified without thyrotoxic crisis or storm; E78.5 Hyperlipidemia, unspecified; F32.9 Major depressive disorder, single episode, unspecified; E83.42 Hypomagnesemia; E83.39 Other disorders of phosphorus metabolism; J02.8 Acute pharyngitis due to other specified organisms; I50.9 Heart failure, unspecified
CPT/HCPCS: 31500; 36415; 36600; 71045; 74018; 80048; 80053; 80061; 80076; 80329; 81001; 82140; 82550; 82607; 82728; 82746; 82803; 82962; 82977; 83036; 83540; 83550; 83605; 83690; 83735; 83880; 84100; 84439; 84443; 84478; 84484; 84550; 85007; 85025; 85044; 85610; 85730; 86140; 87070; 87081; 87086; 87181; 87205; 93005; 93306; 93970; 94002; 94003; 94640; 94660; 94664; 96361; 96365; 96372; 96375; 99291; J1815; J7620; J8499